=== PATIENT | female | born 1955 | race Two or more races ===

== ENCOUNTER 2020-01-22 12:47 | Outpatient (REF) | payer MEDICAID, SELFPAY ==
--- NOTE | 2020-01-22 12:55 | MM_ITS ---
EXAMINATION: MM DIAGNOSTIC DIGITAL BREAST TOMOSYNTHESIS, BILATERAL CLINICAL INFORMATION: 64-year-old due for yearly imaging. Recent history pain beneath left breast following trauma with bruising. Currently asymptomatic. No palpable mass, pain, or discharge. The lifetime risk of breast cancer based on the Tyrer-Cuzick Model is 5%. COMPARISON: Mammography: 01/25/2018, 09/02/2016, 08/06/2015 TECHNIQUE: Digital breast tomosynthesis is performed in both the craniocaudal and mediolateral oblique views along with computer-aided detection (CAD). Synthesized 2D images are generated from the tomosynthesis. FINDINGS: The breasts are heterogeneously dense, which may obscure small masses (ACR BI-RADS breast composition Category c). Breast tissue composition borders on average fibroglandular. The parenchymal pattern is similar to prior studies. There is no developing density or interval mass or architectural abnormality. There is no skin thickening or coarsening of the Nate's ligaments. Scattered bilateral vascular and scattered benign round and coarse calcifications are again seen. There is an intramammary node again noted anterior outer right breast. Results are discussed with the patient at time of visit, using an tube station attendant. IMPRESSION: No significant changes from prior studies. ASSESSMENT: BI-RADS 2: Benign RECOMMENDATION: Routine annual mammography screening. This patient's information was entered into a reminder system with a target due date for their next mammogram.
== END 2020-01-22 12:48 | disposition home or self-care (01) ==
LOC: HO.MAMMO 12:47
PROVIDERS: PCP Emergency Medicine; Visit Provider Emergency Medicine
DX: N64.4 Mastodynia (principal)
CPT/HCPCS: 77062; 77066

== ENCOUNTER → 2020-01-25 14:43 | Outpatient (BNVA) | payer MEDICAID, SELFPAY | PROVIDERS: PCP Family Medicine; Visit Provider Nurse Practitioner | DX: K58.1 Irritable bowel syndrome with constipation (principal); K59.04 Chronic idiopathic constipation; K21.9 Gastro-esophageal reflux disease without esophagitis; K75.81 Nonalcoholic steatohepatitis (NASH); K57.30 Diverticulosis of large intestine without perforation or abscess without bleeding; R30.0 Dysuria; Z79.899 Other long term (current) drug therapy | CPT/HCPCS: 99214 ==

== ENCOUNTER 2020-01-28 09:45 | Outpatient (REF) | payer MEDICAID, SELFPAY ==
[2020-01-28 10:14] LABS: MANUAL DIFF FLAG NO
[2020-01-28 10:25] LABS: Basophils Percent Auto 0.4 % (0-2); Eosinophils Absolute Auto 0.1 X10*3/uL (0.0-0.4); Hematocrit 37.5 % (37-47); Hemoglobin 11.7 g/dl (12.0-16.0); Imm Gran Abs Auto 0.03 X10*3/uL (0.00-0.03); Imm Gran Pct Auto 0.4 % (0.0-0.4); Lymphocytes Absolute Auto 2.1 X10*3/uL (1.2-4.9); Lymphocytes Percent Auto 30.1 % (20-40); Mean Corpuscular HGB Conc 31.2 g/dl (31.0-35.0); Mean Corpuscular Hemoglobin 27.7 pg (27.0-33.0); Mean Corpuscular Volume 88.7 fL (80-98); Mean Platelet Volume 11.1 fL (9.4-12.3); Monocytes Absolute Auto 0.4 X10*3/uL (0.1-1.2); Monocytes Percent Auto 6.3 % (2-11); Neutrophils Absolute Auto 4.3 X10*3/uL (2.0-8.3); Neutrophils Percent Auto 60.8 % (45-73); Platelet Count 191 X10*3/uL (160-400); Red Blood Count 4.23 X10*6/uL (4.20-5.50); Red Cell Distribution Width 13.9 % (11.0-16.0)
[2020-01-28 11:00] LABS: Glucose Urine UA NEG (NEG); Leukocyte Esterase Urine NEG (NEG); Nitrite Urine NEG (NEG); Urine Blood NEG (NEG); Urine Ketones NEG (NEG); Urine Protein NEG (NEG-TRACE)
[2020-01-28 11:02] LABS: Appearance Urine CLEAR; Color Urine YELLOW
[2020-01-28 11:41] LABS: RBC Urine 0 /HPF (0); Squamous Epithelial Cell Urine 1+ /LPF; WBC Urine 0 /HPF (0-4)
== END 2020-01-28 09:46 | disposition home or self-care (01) ==
LOC: HO.LAB 09:45
PROVIDERS: PCP Family Medicine; Visit Provider Nurse Practitioner
DX: R10.2 Pelvic and perineal pain (principal); R30.0 Dysuria
CPT/HCPCS: 36415; 81001; 85025

== ENCOUNTER 2020-02-08 15:36 | Outpatient (REF) | payer MEDICAID, SELFPAY ==
[2020-02-08 16:31] LABS: Glucose Urine UA NEG (NEG); Leukocyte Esterase Urine NEG (NEG); Nitrite Urine NEG (NEG); PH 5.5 (5.0-8.0); Specific Gravity - Urine 1.025 (1.005-1.025); Urine Blood NEG (NEG); Urine Ketones NEG (NEG); Urine Protein NEG (NEG-TRACE)
[2020-02-08 16:46] LABS: Appearance Urine CLEAR; Color Urine YELLOW
[2020-02-08 16:49] LABS: Bacteria Urine TRACE /LPF; Mucus Urine TRACE /LPF; RBC Urine 0-2 /HPF (0); Squamous Epithelial Cell Urine 2+ /LPF; WBC Urine 0-2 /HPF (0-4)
== END 2020-02-08 15:37 | disposition home or self-care (01) ==
LOC: HO.LAB 15:36
PROVIDERS: Absent Provider Family Medicine; PCP Family Medicine; Visit Provider Emergency Medicine
DX: R30.0 Dysuria (principal)
CPT/HCPCS: 81001; 87086

== ENCOUNTER 2020-02-19 08:19 | Outpatient (REF) | payer MEDICAID, SELFPAY ==
[2020-02-19 10:05] LABS: Alanine Aminotransferase 12 U/L (0-31); Albumin Level 4.2 g/dL (3.5-5.0); Alkaline Phosphatase 84 U/L (39-117); Anion Gap 14 (12-20); Aspartate Amino Transferase 14 U/L (5-31); Bilirubin Total 0.3 mg/dL (0.0-1.0); Blood Urea Nitrogen 20 mg/dL (9-16); Calcium 8.9 mg/dL (8.4-10.2); Carbon Dioxide 28 mmol/L (22-29); Chloride 104 mmol/L (96-108); Estimated Glomerular Filt Rate 53; Glucose Random 119 mg/dL (60-115); Potassium 4.8 mmol/l (3.3-5.1); Sodium 141 mmol/L (135-145); Total Protein 6.7 g/dL (6.5-8.0)
== END 2020-02-19 08:20 | disposition home or self-care (01) ==
LOC: HO.LAB 08:19
PROVIDERS: PCP Family Medicine; Visit Provider Nurse Practitioner
DX: R10.2 Pelvic and perineal pain (principal); R30.0 Dysuria
CPT/HCPCS: 80053

== ENCOUNTER 2020-02-20 06:58 | Outpatient (REF) | payer MEDICAID, SELFPAY ==
--- NOTE | 2020-02-20 06:59 | CT_ITS ---
EXAMINATION: CT ABDOMEN AND PELVIS WITH CONTRAST CLINICAL INFORMATION: Pelvic and perineal pain COMPARISON: Previous pelvic ultrasound October 2018, abdominal ultrasound July 2019, MRI of the abdomen July [address] of the abdomen and pelvis July 2018 TECHNIQUE: Multidetector volumetric images were obtained from the superior aspect of the liver through the pubic symphysis following administration 85 mL of Omnipaque 350 intravenous contrast. Sagittal and coronal reformatted images were obtained on the technologist's workstation. Oral contrast: Yes This CT examination was performed using dose optimization techniques as appropriate, variously including the following: *Automated exposure control *Adjustment of mA and/or kV according to patient size (this includes techniques or standardized protocols for targeted exams where dose is matched to indication/reason for exam; i.e. extremities or head) *Use of iterative reconstruction technique DLP: 586 mGy-cm FINDINGS: LUNG BASES: There are small bilateral 2 mm lower lobe nodules that are stable. LIVER, GALLBLADDER, AND BILIARY TREE: Or inflammatory the liver is low in attenuation suggestive of fatty infiltration. The liver is normal in size and shape. The gallbladder is unremarkable with no evidence of radiopaque gallstones, gallbladder wall thickening, or obvious pericholecystic inflammatory changes. PANCREAS: Unremarkable. SPLEEN: Unremarkable. ADRENAL GLANDS: Unremarkable. KIDNEYS AND URETERS: The kidneys are normal in size, shape, and attenuation. No hydronephrosis, hydroureter, or calculi seen. No perinephric stranding. BLADDER: Unremarkable. GASTROINTESTINAL TRACT: There is stool throughout the colon suggestive of constipation. There is diverticulosis of the colon. No evidence of diverticulitis is seen. The small and large bowel are otherwise unremarkable. The appendix is unremarkable. The stomach is unremarkable. ABDOMINAL WALL: There is evidence of previous ventral hernia repair with mesh. LYMPH NODES: Normal. VASCULAR: There is evidence of atherosclerotic disease. No aneurysm is seen. PELVIC VISCERA: Unremarkable. OSSEOUS STRUCTURES: Unremarkable. CT/CT abdomen pelvis w con IMPRESSION: Large amount stool in colon suggestive of constipation. Diverticulosis. No evidence of diverticulitis. Fatty liver.
[2020-02-20] MEDS: iohexoL 350 MG/ML 100 ML INFUS..BTL 85 ML IV (10:13)
[2020-02-20] MEDS: Barium Sulfate Oral (Vanilla) 450 ML ORAL.SUSP 900 ML PO (10:13)
== END 2020-02-20 06:59 | disposition home or self-care (01) ==
LOC: HO.CT 06:58
PROVIDERS: Visit Provider Nurse Practitioner
DX: R10.2 Pelvic and perineal pain (principal); R30.0 Dysuria
CPT/HCPCS: 74177; Q9967

== ENCOUNTER 2020-04-08 09:02 | Emergency (ER) | payer MEDICAID, SELFPAY ==
--- NOTE | 2020-04-08 09:15 | ED.ABDPAIN ---
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 Mode of arrival: ambulatory Limitations: no limitations History of Present Illness MD elicited complaint: abdominal pain Pertinent past history: constipation and other (IBS) Onset (ago): year(s) (1) Pain Consistency: constant Location: RLQ and suprapubic Severity: similar to previous episodes Quality: aching Radiation: none Migration to: no migration Exacerbating factors: nothing Relieving factors: nothing Associated symptoms: denies other symptoms Related Data Home Medications Medication Instructions Recorded Confirmed docusate sodium 100 mg capsule 100 mg PO DAILY 01/25/20 01/25/20 linaclotide 145 mcg capsule 145 mcg PO QAM 01/25/20 01/25/20 methylcellulose (with sugar) oral 1 tbsp PO BID 01/25/20 01/25/20 powder simethicone 180 mg capsule 180 mg PO BID PRN 01/25/20 01/25/20 Previous Rx's Medication Instructions Recorded omeprazole 40 mg capsule,delayed 40 mg PO DAILY 30 Days #30 cap 01/10/20 release amoxicillin-pot clavulanate 1 tab PO BID #14 tab 04/08/20 [Augmentin] hydrocodone-acetaminophen 1 tab PO Q6H PRN #12 tab 04/08/20 magnesium oxide 400 mg PO DAILY 7 Days #7 cap 04/08/20 Allergies Allergy/AdvReac Type Severity Reaction Status Date / Time No Known Allergies Allergy Unknown UNKNOWN Unverified 12/20/19 15:12 [NO KNOWN ALLERGIES] Review of Systems Review of Systems Constitutional : No Weight loss, No Fever, No Chills ENT/Mouth : No sore throat, No Rhinorrhea Eyes: No Swelling, No Redness Cardiovascular : No Chest Pain, No SOB, NoEdema Respiratory : No Cough, No Sputum, No Wheezing Gastrointestinal : no Nausea, no Vomiting, no Diarrhea, positive abdominal Pain, No Hematochezia, No Melena Genitourinary : No Dysuria, No Urinary Frequency, No Hematuria, No Urgency Musculoskeletal : No joint pain, No Myalgias, No Joint Swelling Skin : No Skin Lesions, No rash Neuro : No Weakness, No Numbness, No Dizziness, No Headache Psych : No Anxiety/Panic, No Depression Heme/Lymph: No Bruising, No Lymphadenopathy Endocrine : No Polyuria, No Polydipsia All other systems reviewed and are negative. Physical Exam Vital Signs: Vital Signs: Last Vital Signs Temp 98.5 F 04/08/20 09:31 Pulse 81 04/08/20 09:31 Resp 18 04/08/20 09:31 BP 179/90 H 04/08/20 09:31 Pulse Ox 95 04/08/20 09:31 Body Mass Index 42.9 Appearance: Alert. Oriented X3. No acute distress. Eyes: Pupils equal, round and reactive to light. ENT: Pharynx normal. Neck: Normal inspection. Neck supple. CVS: Normal heart rate and rhythm. Pulses normal. Respiratory: No respiratory distress. Breath sounds normal. Abdomen: Soft and mild suprapubic ttp no rebound or guarding, mild RLQ pain Skin: Skin warm and dry. Normal skin color. Normal skin turgor. Extremities: No lower extremity edema. No calf ttp Neuro: Oriented X 3. No motor deficit. No sensory deficit. Course Course Course Narrative: able to tolerate PO can be managed as outpatient MDM - Abdominal Pain MDM Narrative Medical decision making narrative: 64 yo female with chronic abdominal pain IBS, constipation x 1 year, upset no one can tell her what is wrong, here stating the pain is getting worse she does have a history of diverticulitis - at this time labs CT scan noncontrast ordered had colonoscopy 1 year ago per her reports doubt mass, dispo per results and findings Lab Data Result diagrams: 04/08/20 09:49 04/08/20 09:49 Labs: Lab Results 04/08/20 04/08/20 04/08/20 Range/Units 09:49 09:49 09:49 WBC 11.3 H (4.8-10.8) X10*3/uL RBC 4.36 (4.20-5.50) X10*6/uL Hgb 12.0 (12.0-16.0) g/dl Hct 38.6 (37-47) % MCV 88.5 (80-98) fL MCH 27.5 (27.0-33.0) pg MCHC 31.1 (31.0-35.0) g/dl RDW 13.1 (11.0-16.0) % Plt Count 188 (160-400) X10*3/uL MPV 10.8 (9.4-12.3) fL Immature Gran % (Auto) 0.4 (0.0-0.4) % Neut % (Auto) 74.3 H (45-73) % Lymph % (Auto) 19.1 L (20-40) % [place] % (Auto) 5.1 (2-11) % Eos % (Auto) 0.8 (0-4) % Baso % (Auto) 0.3 (0-2) % Lymph # (Auto) 2.2 (1.2-4.9) X10*3/uL [place] # (Auto) 0.6 (0.1-1.2) X10*3/uL Eos # (Auto) 0.1 (0.0-0.4) X10*3/uL Baso # (Auto) 0.0 (0.0-0.2) X10*3/uL Abs Immat Gran (auto) 0.04 H (0.00-0.03) X10*3/uL Absolute Neuts (auto) 8.4 H (2.0-8.3) X10*3/uL Absolute Nucleated RBC 0.000 (0.0-0.012) X10*3/uL Nucleated RBC % (auto) 0.0 (0.0-0.2) /100WBC Hold Blue Top SEE NOTE Sodium 138 (135-145) mmol/L Potassium 4.4 (3.3-5.1) mmol/l Chloride 105 (96-108) mmol/L Carbon Dioxide 23 (22-29) mmol/L Anion Gap 14 (12-20) BUN 26 H (9-16) mg/dL Creatinine 0.94 (0.5-1.4) mg/dL Estim Creat Clear Calc 44.6 Estimated GFR > 60 Random Glucose 154 H (60-115) mg/dL Calcium 9.3 (8.4-10.2) mg/dL Magnesium 1.1 L* (1.6-2.6) mg/dL Total Bilirubin 0.2 (0.0-1.0) mg/dL Direct Bilirubin < 0.2 (0.0-0.5) mg/dL AST 10 (5-31) U/L ALT 8 (0-31) U/L Alkaline Phosphatase 109 D (39-117) U/L Total Protein 7.0 (6.5-8.0) g/dL Albumin 4.3 (3.5-5.0) g/dL Lipase 8 (8-78) U/L Discharge Plan Discharge Clinical Impression: Diverticulitis, Hypomagnesemia Patient Disposition: Home, Self-Care Instructions: Diverticulitis (ED), Hypomagnesemia (ED) Additional Instructions: return to ED for any worsening symptoms or concerns Prescriptions: New hydrocodone-acetaminophen 5-325 mg tablet 1 tab PO Q6H PRN (Reason: pain) Qty: 12 RF: 0 amoxicillin-pot clavulanate [Augmentin] 875-125 mg tablet 1 tab PO BID Qty: 14 RF: 0 magnesium oxide 400 mg magnesium capsule 400 mg PO DAILY 7 Days Qty: 7 RF: 0 No Action omeprazole 40 mg capsule,delayed release(DR/EC) 40 mg PO DAILY 30 Days Qty: 30 RF: 3 Linzess 145 mcg capsule 145 mcg PO QAM RF: 0 docusate sodium [Colace] 100 mg capsule 100 mg PO DAILY RF: 0 Citrucel (sucrose) Powder 1 tbsp PO BID RF: 0 simethicone [Gas Relief (simethicone)] 180 mg capsule 180 mg PO BID PRNRF: 0 Referrals: Kathryn Jarquin MD [Primary Care Provider] - 1 week Print Language: Cymro [facility] Past Medical History Attestation statement: The following information was validated with the patient. Source: old records reviewed Medical History Chronic idiopathic constipation Dysuria GERD (gastroesophageal reflux disease) Irritable bowel syndrome with constipation Surgical History History of esophagogastroduodenoscopy (EGD) Hx of colonoscopy Family History Family History (Updated 01/25/20 @ 14:53 by BRISEIDA Shaw) Father Family hx of prostate cancer Cancer Brother Cancer Mother HTN (hypertension) Maternal Aunt Skin cancer, Onset Age: 59 Social History Social History Alcohol intake: current Alcohol intake frequency: does not drink Smoking Status: Never smoker Advance Directives: No Advance Directives Information Provided: Yes
[2020-04-08 09:31] VITALS: BP 179/90; PULSE 81; RESP 18; TEMP 36.9; O2SAT 95; BMI 42.9
--- NOTE | 2020-04-08 09:31 | CT_ITS ---
EXAMINATION: CT ABDOMEN AND PELVIS WITHOUT CONTRAST CLINICAL INFORMATION: Worsening lower abdominal pain COMPARISON: Previous abdominal ultrasounds most recent December [address] of the abdomen and pelvis recent February 2020 TECHNIQUE: Multidetector volumetric imaging was performed from the superior aspect of the liver through the pubic symphysis. Sagittal and coronal reformatted images were obtained on the technologist's workstation. This CT examination was performed using dose optimization techniques as appropriate, variously including the following: *Automated exposure control *Adjustment of mA and/or kV according to patient size (this includes techniques or standardized protocols for targeted exams where dose is matched to indication/reason for exam; i.e. extremities or head) *Use of iterative reconstruction technique DLP: 792 mGy-cm FINDINGS: LUNG BASES: There are small calcified pulmonary nodules that are stable suggestive of calcified granulomas. The bases are otherwise clear. LIVER, GALLBLADDER, AND BILIARY TREE: The liver is normal in size, shape, and attenuation. No focal hepatic lesion or biliary ductal dilatation is present. The gallbladder is unremarkable with no evidence of radiopaque gallstones, gallbladder wall thickening, or obvious pericholecystic inflammatory changes. PANCREAS: Unremarkable. SPLEEN: Unremarkable. ADRENAL GLANDS: Unremarkable. KIDNEYS AND URETERS: The kidneys are normal in size, shape, and attenuation. No hydronephrosis, hydroureter, or calculi seen. No perinephric stranding. BLADDER: Unremarkable. GASTROINTESTINAL TRACT: There is diverticulosis of the colon. There is wall thickening of the sigmoid colon and stranding of the surrounding fat suggestive of sigmoid diverticulitis. No evidence of obstruction, perforation or abscess is seen. Small and large bowel is otherwise unremarkable. The appendix is unremarkable. ABDOMINAL WALL: There is postsurgical change following abdominal wall hernia repair with mesh. No recurrent hernia or fluid collection is seen. LYMPH NODES: Normal. VASCULAR: Unremarkable. PELVIC VISCERA: The uterus appears to have been removed. No pelvic mass is seen.. OSSEOUS STRUCTURES: Unremarkable. CT/CT abdomen pelvis wo con IMPRESSION: Sigmoid diverticulitis.
[2020-04-08 09:59] LABS: MANUAL DIFF FLAG NO
[2020-04-08 10:00] LABS: Basophils Percent Auto 0.3 % (0-2); Eosinophils Absolute Auto 0.1 X10*3/uL (0.0-0.4); Eosinophils Percent Auto 0.8 % (0-4); Hematocrit 38.6 % (37-47); Imm Gran Abs Auto 0.04 X10*3/uL (0.00-0.03); Imm Gran Pct Auto 0.4 % (0.0-0.4); Lymphocytes Absolute Auto 2.2 X10*3/uL (1.2-4.9); Lymphocytes Percent Auto 19.1 % (20-40); Mean Corpuscular HGB Conc 31.1 g/dl (31.0-35.0); Mean Corpuscular Hemoglobin 27.5 pg (27.0-33.0); Mean Corpuscular Volume 88.5 fL (80-98); Mean Platelet Volume 10.8 fL (9.4-12.3); Monocytes Absolute Auto 0.6 X10*3/uL (0.1-1.2); Monocytes Percent Auto 5.1 % (2-11); Neutrophils Absolute Auto 8.4 X10*3/uL (2.0-8.3); Neutrophils Percent Auto 74.3 % (45-73); Platelet Count 188 X10*3/uL (160-400); Red Blood Count 4.36 X10*6/uL (4.20-5.50); Red Cell Distribution Width 13.1 % (11.0-16.0); White Blood Count 11.3 X10*3/uL (4.8-10.8)
[2020-04-08 10:25] LABS: Alanine Aminotransferase 8 U/L (0-31); Albumin Level 4.3 g/dL (3.5-5.0); Alkaline Phosphatase 109 U/L (39-117); Anion Gap 14 (12-20); Aspartate Amino Transferase 10 U/L (5-31); Bilirubin Direct < 0.2 mg/dL (0.0-0.5); Bilirubin Total 0.2 mg/dL (0.0-1.0); Blood Urea Nitrogen 26 mg/dL (9-16); Calcium 9.3 mg/dL (8.4-10.2); Carbon Dioxide 23 mmol/L (22-29); Chloride 105 mmol/L (96-108); Creatinine Clr Calc Pharmacy 44.6; Estimated Glomerular Filt Rate > 60; Glucose Random 154 mg/dL (60-115); Lipase 8 U/L (8-78); Magnesium 1.1 mg/dL (1.6-2.6); Potassium 4.4 mmol/l (3.3-5.1); Sodium 138 mmol/L (135-145)
[2020-04-08] MEDS: Magnesium Sulfate/H2O 2 GM/50 ML PIGGYBACK IV (11:13)
[2020-04-08] MEDS: Amoxicillin/Potassium Clav 875 MG TABLET PO (11:56)
== END 2020-04-08 12:05 | disposition home or self-care (01) ==
PROVIDERS: Emergency Provider Emergency Medicine; PCP Family Medicine
DX: K57.32 Diverticulitis of large intestine without perforation or abscess without bleeding (principal); E83.42 Hypomagnesemia; Z79.899 Other long term (current) drug therapy
CPT/HCPCS: 36415; 74176; 80048; 80076; 83690; 83735; 85025; 96365; 99283; 99284; J3475

== ENCOUNTER → 2020-04-29 10:43 | Outpatient (BNVA) | payer MEDICAID, SELFPAY | PROVIDERS: PCP Family Medicine; Visit Provider Nurse Practitioner ==

== ENCOUNTER 2020-04-30 11:29 | Outpatient (REF) | payer MEDICAID, SELFPAY ==
[2020-04-30 12:28] LABS: MANUAL DIFF FLAG NO
[2020-04-30 12:32] LABS: Basophils Percent Auto 0.4 % (0-2); Eosinophils Absolute Auto 0.1 X10*3/uL (0.0-0.4); Eosinophils Percent Auto 1.5 % (0-4); Hematocrit 39.1 % (37-47); Hemoglobin 12.2 g/dl (12.0-16.0); Imm Gran Abs Auto 0.03 X10*3/uL (0.00-0.03); Imm Gran Pct Auto 0.3 % (0.0-0.4); Lymphocytes Absolute Auto 3.1 X10*3/uL (1.2-4.9); Lymphocytes Percent Auto 33.5 % (20-40); Mean Corpuscular HGB Conc 31.2 g/dl (31.0-35.0); Mean Corpuscular Hemoglobin 27.2 pg (27.0-33.0); Mean Corpuscular Volume 87.3 fL (80-98); Mean Platelet Volume 11.7 fL (9.4-12.3); Monocytes Absolute Auto 0.5 X10*3/uL (0.1-1.2); Monocytes Percent Auto 5.9 % (2-11); Neutrophils Absolute Auto 5.4 X10*3/uL (2.0-8.3); Neutrophils Percent Auto 58.4 % (45-73); Platelet Count 253 X10*3/uL (160-400); Red Blood Count 4.48 X10*6/uL (4.20-5.50); Red Cell Distribution Width 13.3 % (11.0-16.0); White Blood Count 9.2 X10*3/uL (4.8-10.8)
[2020-04-30 13:09] LABS: Magnesium 1.6 mg/dL (1.6-2.6)
== END 2020-04-30 11:30 | disposition home or self-care (01) ==
LOC: HO.LAB 11:29
PROVIDERS: PCP Family Medicine; Visit Provider Nurse Practitioner
DX: K57.92 Diverticulitis of intestine, part unspecified, without perforation or abscess without bleeding (principal); E83.42 Hypomagnesemia
CPT/HCPCS: 36415; 83735; 85025

== ENCOUNTER → 2020-05-13 10:29 | Outpatient (BNVA) | payer MEDICAID, SELFPAY | PROVIDERS: PCP Family Medicine; Visit Provider Nurse Practitioner ==

== ENCOUNTER 2020-05-28 09:25 | Emergency (ER) | payer MEDICAID, SELFPAY ==
--- NOTE | ~2020-05-28 | XR_ITS ---
EXAMINATION: XR SHOULDER, LEFT CLINICAL INFORMATION: Shoulder pain, tear COMPARISON: None TECHNIQUE: Left shoulder is imaged in 3 views. FINDINGS: There is no fracture, dislocation, or destructive process. The acromioclavicular alignment is normal. The glenohumeral joint shows no narrowing or erosive change. There are no visible rotator cuff calcifications. Bony mineralization appears normal. Left lung apex is clear. XR/XR shoulder LT min 2V IMPRESSION: Normal left shoulder.
[2020-05-28 09:31] VITALS: BP 118/82; PULSE 91; RESP 14; TEMP 36.1; O2SAT 96; BMI 31.1
--- NOTE | 2020-05-28 10:40 | PC.NURSE ---
pt reports slipped on stairs, reached out grabbed railing felt pull rt shoulder x 1 week, kept balance
[2020-05-28] MEDS: Cyclobenzaprine HCl 5 MG TABLET PO (11:40)
[2020-05-28] MEDS: Ketorolac Tromethamine 15 MG/ML VIAL IM (11:40)
--- NOTE | 2020-05-28 12:09 | ED_ITS ---
HPI - Extremity Problem General Chief complaint: Extremity Injury, Upper Stated complaint: arm pain Time Seen by Provider: 05/28/20 10:37 Source: patient Mode of arrival: ambulatory History of Present Illness HPI Narrative: 65-year-old female with a past medical history of constipation, diabetes, GERD, hypertension, IBS, urge incontinence, presenting to the ED complaining of left shoulder/upper arm pain S/P reaching for something on Satu rday and arm being hyper extended. Denies direct injury/trauma were crushed, numbness, tingling, chest pain, shortness of breath. Reports pain with ROM Related Data Home Medications Medication Instructions Recorded Confirmed docusate sodium 100 mg capsule 100 mg PO DAILY 01/25/20 04/15/20 linaclotide 145 mcg capsule 145 mcg PO QAM 01/25/20 04/15/20 methylcellulose (with sugar) oral 1 tbsp PO BID 01/25/20 04/15/20 powder simethicone 180 mg capsule 180 mg PO BID PRN 01/25/20 04/15/20 Previous Rx's Medication Instructions Recorded hydrocodone-acetaminophen 1 tab PO Q6H PRN #12 tab 04/08/20 magnesium oxide 400 mg PO DAILY 7 Days #7 cap 04/08/20 oxybutynin chloride 10 mg 10 mg PO DAILY #30 tab 04/15/20 tablet,extended release 24 hr dicyclomine 20 mg tablet 20 mg PO QID PRN 30 Days #120 tab 05/13/20 levofloxacin 750 mg tablet 750 mg PO Q24H 10 Days #10 tab 05/13/20 metronidazole 500 mg tablet 500 mg PO TID 10 Days #30 tab 05/13/20 omeprazole 40 mg capsule,delayed 40 mg PO DAILY 30 Days #30 cap 05/13/20 release Allergies Allergy/AdvReac Type Severity Reaction Status Date / Time No Known Allergies Allergy Unknown UNKNOWN Unverified 04/29/20 10:43 [NO KNOWN ALLERGIES] Review of Systems Review of Systems: Constitutional: No Fever, No Chills Cardiovascular: No Chest Pain, No SOB Respiratory: No Cough, No Sputum, No Wheezing Genitourinary: No Urinary Incontinence Musculoskeletal: + joint pain, No Myalgias, No Joint Swelling Skin: No Skin Lesions, No rash Neuro: No Weakness, No Numbness, No Paresthesias Yes all other systems are reviewed and are negative PMFSH Past Medical History Attestation statement: The following information was validated with the patient. Medical History (Updated 05/28/20 @ 12:16 by SAIRA Richards) Chronic idiopathic constipation Diabetes 1.5, managed as type 2 Dysuria GERD (gastroesophageal reflux disease) HTN (hypertension) Irritable bowel syndrome with constipation KIRSTIE (stress urinary incontinence, female) Urge incontinence Surgical History History of esophagogastroduodenoscopy (EGD) Hx of colonoscopy Family History Family History Father Family hx of prostate cancer Cancer Brother Cancer Mother HTN (hypertension) Maternal Aunt Skin cancer, Onset Age: 59 Social History Social History (Updated 05/13/20 @ 10:29 by Antonia Miller) Household Members: None Alcohol intake: never Smoking Status: Never smoker Smoked in Last 30 Days: No Use of substances other than those prescribed or required for medical reasons: No Advance Directives: No Advance Directives Information Provided: No Current occupational status: disabled Physical Exam Vital Signs: Vital Signs: Last Vital Signs Temp 97 F 05/28/20 09:31 Pulse 91 05/28/20 09:31 Resp 14 05/28/20 09:31 BP 118/82 05/28/20 09:31 Pulse Ox 96 05/28/20 09:31 Body Mass Index 31.1 Const: General: cooperative and healthy appearing Orientation/consciousness: patient oriented x3 Limitations: no limitations HENMT: Head: Yes normal to inspection Ears: hearing grossly normal bilaterally General nose exam: Normal external nose present Face and sinus: Yes normal facial exam Eyes: General: appearance normal, both eyes and all related structures EOM: EOMs intact bilaterally Neck: Neck: Yes normal visual inspection Resp: Effort & Inspection: normal respiratory effort Cardio: Rate: regular rate Peripheral pulses: radial pulses present Skin: Rashes: no rashes Wounds: no wounds Neuro: General: patient oriented x3 Gait exam (Neuro): Normal gait present Extrem: Other: Left shoulder normal to inspection, no deformity, tender to palpation to deltoid muscle. Abduction and internal rotation limited secondary to pain. Neurovascularly intact General: Yes normal to inspection Course Course Course Narrative: XR shoulder LT min 2V IMPRESSION: Normal left shoulder. MDM - Extremity (Nontraumatic) MDM Narrative Medical decision making narrative: On exam VSS, NAD/well-appearing, physical exam as above. Concern for MSK pain/strain Plan: X-rays Discharge Plan Discharge Clinical Impression: Acute shoulder pain Qualifiers: Laterality: left Qualified Code(s): M25.512 - Pain in left shoulder Patient Disposition: Home, Self-Care Instructions: Musculoskeletal Pain (ED) Additional Instructions: Your x-ray were negative. Naproxen as an anti-inflammatory/pain medication, take with food. Flexeril is a muscle relaxer, take at night as it makes you drowsy, do not drive, drink alcohol, or operate machinery while taking it. Lidoderm patches or numbing patches, apply to painful area. In addition take Tylenol. Follow up with her primary care doctor. Tu radiograf?a fue negativa. El naproxeno debbie medicamento antiinflamatorio / analg?sico, t?quintanilla con las comidas. Flexeril es un relajante muscular, t?quintanilla por la noche ya que le produce louis?o, no conduzca, no cleve alcohol ni maneje maquinaria mientras lo julieth. Los parches de Lidoderm o los parches adormecedores se aplican en el ?patel dolorida. Adem?s, tome Tylenol. Alexander un seguimiento con montilla m?dico de atenci?n primaria. Prescriptions: No Action hydrocodone-acetaminophen 5-325 mg tablet 1 tab PO Q6H PRN (Reason: pain) Qty: 12 RF: 0 magnesium oxide 400 mg magnesium capsule 400 mg PO DAILY 7 Days Qty: 7 RF: 0 oxybutynin chloride 10 mg tablet extended release 24hr 10 mg PO DAILY Qty: 30 RF: 6 Linzess 145 mcg capsule 145 mcg PO QAM RF: 0 docusate sodium [Colace] 100 mg capsule 100 mg PO DAILY RF: 0 Citrucel (sucrose) Powder 1 tbsp PO BID RF: 0 simethicone [Gas Relief (simethicone)] 180 mg capsule 180 mg PO BID PRNRF: 0 metronidazole [Flagyl] 500 mg tablet 500 mg PO TID 10 Days Qty: 30 RF: 0 levofloxacin 750 mg tablet 750 mg PO Q24H 10 Days Qty: 10 RF: 0 omeprazole 40 mg capsule,delayed release(DR/EC) 40 mg PO DAILY 30 Days Qty: 30 RF: 6 dicyclomine 20 mg tablet 20 mg PO QID PRN (Reason: bowel pain) 30 Days Qty: 120 RF: 3 Referrals: Kathryn Jarquin MD [Primary Care Provider] - 3 days Print Language: Turkish
== END 2020-05-28 12:31 | disposition home or self-care (01) ==
PROVIDERS: Emergency Provider Emergency Medicine; PCP Family Medicine
DX: M25.512 Pain in left shoulder (principal); I10 Essential (primary) hypertension; E13.9 Other specified diabetes mellitus without complications; Z79.899 Other long term (current) drug therapy
CPT/HCPCS: 73030; 96372; 99283; J1885

== ENCOUNTER → 2020-06-10 13:28 | Outpatient (BNVA) | payer MEDICAID, SELFPAY | PROVIDERS: PCP Family Medicine; Visit Provider Nurse Practitioner | DX: K57.92 Diverticulitis of intestine, part unspecified, without perforation or abscess without bleeding (principal); K21.9 Gastro-esophageal reflux disease without esophagitis; R10.9 Unspecified abdominal pain ==

== ENCOUNTER → 2020-06-20 13:15 | Outpatient (BNVA) | payer MEDICAID, SELFPAY | PROVIDERS: PCP Family Medicine; Visit Provider Physician Assistant | DX: M75.22 Bicipital tendinitis, left shoulder (principal) | CPT/HCPCS: 99202 ==

== ENCOUNTER → 2020-06-25 13:41 | Outpatient (BNVA) | payer MEDICAID, SELFPAY | PROVIDERS: PCP Family Medicine; Referring Provider Family Medicine; Visit Provider Nurse Practitioner ==

== ENCOUNTER 2020-06-25 15:25 | Emergency (ER) | payer MEDICAID, SELFPAY ==
[2020-06-25 15:57] VITALS: BP 194/93; PULSE 74; RESP 16; TEMP 37.1; O2SAT 98; BMI 45.9
--- NOTE | 2020-06-25 17:14 | ED_ITS ---
HPI - Female Genitourinary General Chief complaint: Urogenital-Female Stated complaint: ?UTI Time Seen by Provider: 06/25/20 16:39 Source: patient Mode of arrival: ambulatory History of Present Illness HPI Narrative: 65-year-old female with a past medical history constipation, diabetes, GERD, hypertension, IBS, urge incontinence, presenting to the ED complaining of dysuria and suprapubic pressure x1 week. Denies fever, chills, nausea/vomiting, flank pain, frequency, hematuria, vaginal bleeding/discharge MD elicited complaint: dysuria and UTI Related Data Home Medications Medication Instructions Recorded Confirmed docusate sodium 100 mg capsule 100 mg PO DAILY 01/25/20 04/15/20 methylcellulose (with sugar) oral 1 tbsp PO BID 01/25/20 04/15/20 powder simethicone 180 mg capsule 180 mg PO BID PRN 01/25/20 04/15/20 aspirin 81 mg tablet,delayed 81 mg PO DAILY 06/10/20 release clonazepam 2 mg tablet 2 mg PO DAILY 06/10/20 lisinopril 40 mg tablet 40 mg PO DAILY 06/10/20 simvastatin 20 mg tablet 20 mg PO DAILY 06/10/20 Previous Rx's Medication Instructions Recorded hydrocodone-acetaminophen 1 tab PO Q6H PRN #12 tab 04/08/20 magnesium oxide 400 mg PO DAILY 7 Days #7 cap 04/08/20 oxybutynin chloride 10 mg 10 mg PO DAILY #30 tab 04/15/20 tablet,extended release 24 hr dicyclomine 20 mg tablet 20 mg PO QID PRN 30 Days #120 tab 05/13/20 levofloxacin 750 mg tablet 750 mg PO Q24H 10 Days #10 tab 05/13/20 metronidazole 500 mg tablet 500 mg PO TID 10 Days #30 tab 05/13/20 acetaminophen [Tylenol Extra 500 mg PO Q6H PRN #20 tab 05/28/20 Strength] cyclobenzaprine 5 mg PO Q8H PRN 5 Days #14 tab 05/28/20 lidocaine [Lidoderm] 1 patch TOPICAL DAILY PRN #30 ea 05/28/20 MDD remove after 12 hours naproxen 500 mg PO BID PRN 10 Days #20 tab 05/28/20 linaclotide 145 mcg capsule 145 mcg PO DAILY #30 cap 05/30/20 meloxicam 7.5 mg tablet 7.5 mg PO DAILY 30 Days #30 tab 06/20/20 omeprazole 40 mg capsule,delayed 40 mg PO DAILY #30 cap 06/25/20 release phenazopyridine [Pyridium] 200 mg PO TID PRN #6 tab 06/25/20 Allergies Allergy/AdvReac Type Severity Reaction Status Date / Time No Known Allergies Allergy Unknown UNKNOWN Verified 06/25/20 13:42 [NO KNOWN ALLERGIES] Review of Systems Review of Systems: Constitutional: No Fever, No Chills Gastrointestinal: No Nausea, No Vomiting, + suprapubic discomfort Genitourinary: +Dysuria, No Urinary Frequency, No Hematuria, No Urgency, No Flank Pain Skin: No Skin Lesions, No rash Neuro: No Weakness, No Numbness, No Paresthesias Yes all other systems are reviewed and are negative [facility] Past Medical History Attestation statement: The following information was validated with the patient. Medical History Chronic idiopathic constipation Diabetes 1.5, managed as type 2 Dysuria GERD (gastroesophageal reflux disease) HTN (hypertension) Irritable bowel syndrome with constipation KIRSTIE (stress urinary incontinence, female) Urge incontinence Surgical History History of esophagogastroduodenoscopy (EGD) Hx of colonoscopy Family History Family History Father Family hx of prostate cancer Cancer Brother Cancer Mother HTN (hypertension) Maternal Aunt Skin cancer, Onset Age: 59 Social History Social History (Updated 06/25/20 @ 13:46 by BRISEIDA Shaw) Household Members: None Alcohol intake: never Smoking Status: Never smoker Advance Directives: No Advance Directives Information Provided: Yes Current occupational status: disabled Physical Exam Vital Signs: Vital Signs: Last Vital Signs Temp 98.7 F 06/25/20 15:57 Pulse 74 06/25/20 15:57 Resp 16 06/25/20 15:57 BP 194/93 H 06/25/20 15:57 Pulse Ox 98 06/25/20 15:57 Body Mass Index 45.9 Const: General: cooperative, healthy appearing, comfortable and no acute distress Orientation/consciousness: patient oriented x3 Limitations: no limitations HENMT: Head: Yes normal to inspection Ears: hearing grossly normal bilaterally General nose exam: Normal external nose present Face and sinus: Yes normal facial exam Eyes: General: appearance normal, both eyes and all related structures EOM: EOMs intact bilaterally Neck: Neck: Yes normal visual inspection and Yes no meningeal signs GI: Inspection: Yes normal to inspection Palpation (GI): Soft to palpation, nontender, no guarding and not rigid : General: Yes no CVA tenderness Back/Spine/Pelvis: Back: no CVA tenderness Skin: Rashes: no rashes Wounds: no wounds Neuro: General: patient oriented x3 and no meningeal signs Gait exam (Neuro): Normal gait present Extrem: General: Yes normal to inspection Course Course Course Narrative: -UA negative >> likely cystitis. Will DC with Pyridium MDM - Female Genitourinary MDM Narrative Medical decision making narrative: 65-year-old female with a past medical history constipation, diabetes, GERD, hypertension, IBS, urge incontinence, p resenting to the ED complaining of dysuria and suprapubic pressure x1 week. On exam VSS, NAD/well-appearing, abdomen soft/nontender, no CVAT. Concern for UTI. Plan: UA Medical Records Attestation: I reviewed the patient's medical records. Lab Data Labs: Lab Results 06/25/20 Range/Units 17:09 Urine Color DARK YELLOW Urine Appearance CLEAR Urine pH 5.5 (5.0-8.0) Ur Specific [place] 1.025 (1.005-1.025) Urine Protein TRACE (NEG-TRACE) MG/DL Urine Glucose (UA) NEG (NEG) MG/DL Urine Ketones NEG (NEG) MG/DL Urine Blood NEG (NEG) Urine Nitrite NEG (NEG) Ur Leukocyte Esterase NEG (NEG) Discharge Plan Discharge Clinical Impression: Dysuria Patient Disposition: Home, Self-Care Instructions: Dysuria (ED) Additional Instructions: Your urine is not infected. Peridium will help with the discomfort when he pee. You need to follow-up with urology. If you develop constant or worsening abdominal pain, nausea/vomiting, or fever return to the ED Tu orina no est? infectada. Peridium ayudar? con la incomodidad cuando orine. Debe hacer un seguimiento con urolog?a. Si presenta dolor abdominal fortunato o que empeora, n?useas / v?mitos o fiebre, vuelva al servicio de urgencias. Prescriptions: New phenazopyridine [Pyridium] 200 mg tablet 200 mg PO TID PRN (Reason: pain) Qty: 6 RF: 0 No Action linaclotide [Linzess] 145 mcg capsule 145 mcg PO DAILY Qty: 30 RF: 2 hydrocodone-acetaminophen 5-325 mg tablet 1 tab PO Q6H PRN (Reason: pain) Qty: 12 RF: 0 magnesium oxide 400 mg magnesium capsule 400 mg PO DAILY 7 Days Qty: 7 RF: 0 acetaminophen [Tylenol Extra Strength] 500 mg tablet 500 mg PO Q6H PRN (Reason: pain or fever) Qty: 20 RF: 0 lidocaine [Lidoderm] 5 % adhesive patch,medicated 1 patch topical DAILY MDD remove after 12 hours PRN (Reason: pain) Qty: 30 RF: 0 naproxen 500 mg tablet 500 mg PO BID PRN (Reason: pain) 10 Days Qty: 20 RF: 0 cyclobenzaprine 5 mg tablet 5 mg PO Q8H PRN (Reason: pain (scale score 7-10)) 5 Days Qty: 14 RF: 0 oxybutynin chloride 10 mg tablet extended release 24hr 10 mg PO DAILY Qty: 30 RF: 6 omeprazole 40 mg capsule,delayed release(DR/EC) 40 mg PO DAILY Qty: 30 RF: 6 docusate sodium [Colace] 100 mg capsule 100 mg PO DAILY RF: 0 Citrucel (sucrose) Powder 1 tbsp PO BID RF: 0 simethicone [Gas Relief (simethicone)] 180 mg capsule 180 mg PO BID PRNRF: 0 metronidazole [Flagyl] 500 mg tablet 500 mg PO TID 10 Days Qty: 30 RF: 0 levofloxacin 750 mg tablet 750 mg PO Q24H 10 Days Qty: 10 RF: 0 dicyclomine 20 mg tablet 20 mg PO QID PRN (Reason: bowel pain) 30 Days Qty: 120 RF: 3 meloxicam 7.5 mg tablet 7.5 mg PO DAILY 30 Days Qty: 30 RF: 0 Referrals: Shlomo Ware MD [Physician] - 1 week Kathryn Jarquin MD [Primary Care Provider] - 5 days Print Language: Georgian
[2020-06-25 17:19] LABS: Glucose Urine UA NEG (NEG); Leukocyte Esterase Urine NEG (NEG); Nitrite Urine NEG (NEG); PH 5.5 (5.0-8.0); Specific Gravity - Urine 1.025 (1.005-1.025); Urine Blood NEG (NEG); Urine Ketones NEG (NEG); Urine Protein TRACE MG/DL (NEG-TRACE)
[2020-06-25 17:21] LABS: Appearance Urine CLEAR; Color Urine DARK YELLOW
== END 2020-06-25 18:29 | disposition home or self-care (01) ==
PROVIDERS: Emergency Provider Emergency Medicine; PCP Family Medicine
DX: R30.0 Dysuria (principal); Z79.899 Other long term (current) drug therapy; Z79.82 Long term (current) use of aspirin
CPT/HCPCS: 81003; 99283; 99284

== ENCOUNTER 2020-07-09 20:56 | Emergency (ER) | payer MEDICAID, SELFPAY ==
--- NOTE | ~2020-07-09 | XR_ITS ---
EXAMINATION: LEFT KNEE, LEFT ANKLE CLINICAL INFORMATION: Pain and swelling left ankle, left knee COMPARISON: None TECHNIQUE: 4 views left knee, 3 views left ankle FINDINGS: Knee: Mild degenerative changes are present with narrowing at the medial compartment and some mild lateral compartment changes. The lateral compartment has some minimal lateral femoral condyle osteophytes at the joint space is well maintained. The patellofemoral joint appears unremarkable. No joint effusion is seen. No fracture is seen. Ankle: Mild bilateral soft tissue swelling is seen but no fractures are identified. The ankle mortise appears stable. Vascular calcifications are present. XR/XR ankle LT 2V IMPRESSION: Bicompartmental knee joint degenerative changes, most marked medially. Other than mild soft tissue swelling no abnormality is seen in the ankle.
--- NOTE | ~2020-07-09 | XR_ITS ---
EXAMINATION: LEFT KNEE, LEFT ANKLE CLINICAL INFORMATION: Pain and swelling left ankle, left knee COMPARISON: None TECHNIQUE: 4 views left knee, 3 views left ankle FINDINGS: Knee: Mild degenerative changes are present with narrowing at the medial compartment and some mild lateral compartment changes. The lateral compartment has some minimal lateral femoral condyle osteophytes at the joint space is well maintained. The patellofemoral joint appears unremarkable. No joint effusion is seen. No fracture is seen. Ankle: Mild bilateral soft tissue swelling is seen but no fractures are identified. The ankle mortise appears stable. Vascular calcifications are present. XR/XR knee LT 4V IMPRESSION: Bicompartmental knee joint degenerative changes, most marked medially. Other than mild soft tissue swelling no abnormality is seen in the ankle.
[2020-07-09 21:31] VITALS: BP 189/89; PULSE 60; RESP 16; TEMP 36.3; O2SAT 97; BMI 45.9
--- NOTE | 2020-07-09 21:51 | ED_ITS ---
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 65-year-old female came in for evaluation of left knee/left ankle pain, patient declined any recent fall or trauma to the knee or ankle however patient fell a year ago causing injury to the knee. Patient also is here today for evaluation dysuria and urinary frequency. No fever, no chills. Related Data Home Medications Medication Instructions Recorded Confirmed docusate sodium 100 mg capsule 100 mg PO DAILY 01/25/20 04/15/20 methylcellulose (with sugar) oral 1 tbsp PO BID 01/25/20 04/15/20 powder simethicone 180 mg capsule 180 mg PO BID PRN 01/25/20 04/15/20 aspirin 81 mg tablet,delayed 81 mg PO DAILY 06/10/20 release clonazepam 2 mg tablet 2 mg PO DAILY 06/10/20 lisinopril 40 mg tablet 40 mg PO DAILY 06/10/20 simvastatin 20 mg tablet 20 mg PO DAILY 06/10/20 Previous Rx's Medication Instructions Recorded hydrocodone-acetaminophen 1 tab PO Q6H PRN #12 tab 04/08/20 magnesium oxide 400 mg PO DAILY 7 Days #7 cap 04/08/20 oxybutynin chloride 10 mg 10 mg PO DAILY #30 tab 04/15/20 tablet,extended release 24 hr dicyclomine 20 mg tablet 20 mg PO QID PRN 30 Days #120 tab 05/13/20 levofloxacin 750 mg tablet 750 mg PO Q24H 10 Days #10 tab 05/13/20 metronidazole 500 mg tablet 500 mg PO TID 10 Days #30 tab 05/13/20 acetaminophen [Tylenol Extra 500 mg PO Q6H PRN #20 tab 05/28/20 Strength] cyclobenzaprine 5 mg PO Q8H PRN 5 Days #14 tab 05/28/20 lidocaine [Lidoderm] 1 patch TOPICAL DAILY PRN #30 ea 05/28/20 MDD remove after 12 hours naproxen 500 mg PO BID PRN 10 Days #20 tab 05/28/20 linaclotide 145 mcg capsule 145 mcg PO DAILY #30 cap 05/30/20 meloxicam 7.5 mg tablet 7.5 mg PO DAILY 30 Days #30 tab 06/20/20 omeprazole 40 mg capsule,delayed 40 mg PO DAILY #30 cap 06/25/20 release phenazopyridine [Pyridium] 200 mg PO TID PRN #6 tab 06/25/20 Allergies Allergy/AdvReac Type Severity Reaction Status Date / Time No Known Allergies Allergy Unknown UNKNOWN Verified 06/25/20 13:42 [NO KNOWN ALLERGIES] [facility], [facility] Past Medical History Medical History Chronic idiopathic constipation Diabetes 1.5, managed as type 2 Dysuria GERD (gastroesophageal reflux disease) HTN (hypertension) Irritable bowel syndrome with constipation KIRSTIE (stress urinary incontinence, female) Urge incontinence Surgical History History of esophagogastroduodenoscopy (EGD) Hx of colonoscopy Family History Family History Father Family hx of prostate cancer Cancer Brother Cancer Mother HTN (hypertension) Maternal Aunt Skin cancer, Onset Age: 59 Social History Social History (Updated 06/25/20 @ 13:46 by BRISEIDA Shaw) Household Members: None Alcohol intake: never Smoking Status: Never smoker Smoked in Last 30 Days: No Advance Directives: No Advance Directives Information Provided: Yes Current occupational status: disabled Physical Exam Vital Signs: Vital Signs: Last Vital Signs Temp 97.4 F 07/09/20 21:31 Pulse 60 07/09/20 21:31 Resp 16 07/09/20 21:31 BP 189/89 H 07/09/20 21:31 Pulse Ox 97 07/09/20 21:31 Body Mass Index 45.9 Vital signs have been reviewed as appeared to be correct. Blood pressure is elevated. Heart rate normal. Respiration rate normal. Temperature normal. Oxygen saturation normal. Appearance: Alert. Oriented X3. No acute distress. Head: Normal external exam. Normocephalic. Atraumatic. No Lopez signs noted. No raccoon eyes noted Eyes: PERRLA. EOMI. Conjunctiva and sclera normal. Eyelids normal. ENT: TM's Normal. Pharynx normal. Uvula midline. Moist mucous membranes. No trismus noted. No drooling noted. No muffled voice noted. Neck: Normal inspection. Neck supple. FROM. No adenopathy. Thyroid Normal. No meningeal signs. No neck mass noted. CVS: Normal heart rate and rhythm. Heart sound normal. No murmurs noted. Pulses normal throughout. Respiratory: No respiratory distress. Painless inspiration. Breath sounds normal. No wheezes/rales/rhonchi noted. Chest nontender. No accessory muscle usage noted or decreased air movement noted. Abdomen: Soft and nontender. Bowel sounds normal in all 4 quadrants. No distention noted. No organomegaly noted. No visible injury noted. Back: No CVA tenderness. Full range of motion noted. Skin: Skin warm and dry. Normal skin color. Normal skin turgor. No rashes/lesions/lacerations noted. Extremities: Left lower extremities: No lower extremity edema. Extremities exhibit normal range of motion. Extremities nontender. Neuro: Oriented X 3. No motor deficit. No sensory deficit. Reflexes normal. Course Course Course Narrative: Assessment and plan. [age] year old female came in with dysuria (patient with chronic dysuria) UA is showing no UTI, left knee/ankle pain no acute injury showing on the x-ray. Discharge the patient to follow-up with PCP. MDM - Extremity Injury (Lower) Lab Data Attestation: I reviewed the patient's lab results. Labs: Lab Results 07/09/20 Range/Units 22:04 Urine Color YELLOW Urine Appearance CLEAR Urine pH 6.0 (5.0-8.0) Ur Specific [place] 1.025 (1.005-1.025) Urine Protein TRACE (NEG-TRACE) MG/DL Urine Glucose (UA) NEG (NEG) MG/DL Urine Ketones NEG (NEG) MG/DL Urine Blood NEG (NEG) Urine Nitrite NEG (NEG) Ur Leukocyte Esterase NEG (NEG) Imaging Data Left knee/ankle x-ray: Radiologist's impression: Bicompartmental knee joint degenerative changes, most marked medially. Other than mild soft tissue swelling no abnormality is seen in the ankle. Discharge Plan Discharge Clinical Impression: Dysuria Arthralgia Qualifiers: Joint pain location: knee Laterality: left Qualified Code(s): M25.562 - Pain in left knee Patient Disposition: Home, Self-Care Instructions: Dysuria (ED), Arthralgia (ED) Prescriptions: No Action linaclotide [Linzess] 145 mcg capsule 145 mcg PO DAILY Qty: 30 RF: 2 hydrocodone-acetaminophen 5-325 mg tablet 1 tab PO Q6H PRN (Reason: pain) Qty: 12 RF: 0 magnesium oxide 400 mg magnesium capsule 400 mg PO DAILY 7 Days Qty: 7 RF: 0 acetaminophen [Tylenol Extra Strength] 500 mg tablet 500 mg PO Q6H PRN (Reason: pain or fever) Qty: 20 RF: 0 lidocaine [Lidoderm] 5 % adhesive patch,medicated 1 patch topical DAILY MDD remove after 12 hours PRN (Reason: pain) Qty: 30 RF: 0 naproxen 500 mg tablet 500 mg PO BID PRN (Reason: pain) 10 Days Qty: 20 RF: 0 cyclobenzaprine 5 mg tablet 5 mg PO Q8H PRN (Reason: pain (scale score 7-10)) 5 Days Qty: 14 RF: 0 phenazopyridine [Pyridium] 200 mg tablet 200 mg PO TID PRN (Reason: pain) Qty: 6 RF: 0 oxybutynin chloride 10 mg tablet extended release 24hr 10 mg PO DAILY Qty: 30 RF: 6 omeprazole 40 mg capsule,delayed release(DR/EC) 40 mg PO DAILY Qty: 30 RF: 6 docusate sodium [Colace] 100 mg capsule 100 mg PO DAILY RF: 0 Citrucel (sucrose) Powder 1 tbsp PO BID RF: 0 simethicone [Gas Relief (simethicone)] 180 mg capsule 180 mg PO BID PRNRF: 0 metronidazole [Flagyl] 500 mg tablet 500 mg PO TID 10 Days Qty: 30 RF: 0 levofloxacin 750 mg tablet 750 mg PO Q24H 10 Days Qty: 10 RF: 0 dicyclomine 20 mg tablet 20 mg PO QID PRN (Reason: bowel pain) 30 Days Qty: 120 RF: 3 meloxicam 7.5 mg tablet 7.5 mg PO DAILY 30 Days Qty: 30 RF: 0 Referrals: Kathryn Jarquin MD [Primary Care Provider] - 2 days
[2020-07-09 22:09] LABS: Glucose Urine UA NEG (NEG); Leukocyte Esterase Urine NEG (NEG); Nitrite Urine NEG (NEG); Specific Gravity - Urine 1.025 (1.005-1.025); Urine Blood NEG (NEG); Urine Ketones NEG (NEG); Urine Protein TRACE MG/DL (NEG-TRACE)
[2020-07-09 22:11] LABS: Appearance Urine CLEAR; Color Urine YELLOW
== END 2020-07-09 23:11 | disposition home or self-care (01) ==
PROVIDERS: Emergency Provider Emergency Medicine; PCP Family Medicine
DX: M25.562 Pain in left knee (principal); M25.572 Pain in left ankle and joints of left foot; R30.0 Dysuria; Z79.899 Other long term (current) drug therapy
CPT/HCPCS: 73564; 73600; 81003; 99284

== ENCOUNTER 2020-07-28 08:48 | Outpatient (REF) | payer MEDICAID, SELFPAY | END 2020-07-28 08:49 | disposition home or self-care (01) | LOC: HO.HOSX 08:48 | PROVIDERS: Visit Provider Physician Assistant | DX: Z13.89 Encounter for screening for other disorder (principal) ==

== ENCOUNTER → 2020-07-31 12:36 | Outpatient (BNVA) | payer MEDICAID, SELFPAY | PROVIDERS: PCP Family Medicine; Visit Provider Physician Assistant | DX: M17.12 Unilateral primary osteoarthritis, left knee (principal) | CPT/HCPCS: 99212 ==

== ENCOUNTER 2020-08-06 09:45 | Outpatient (REF) | payer MEDICAID, SELFPAY ==
--- NOTE | ~2020-08-06 | US_ITS ---
EXAMINATION: US ABDOMEN LIMITED CLINICAL INFORMATION: WILLETT. COMPARISON: CT abdomen/pelvis 04/08/2020. Ultrasound abdomen limited 12/18/2019 and ultrasound abdomen 07/11/2019. MRI abdomen 07/08/2018. TECHNIQUE: Real-time imaging of the right upper quadrant abdominal viscera. FINDINGS: PANCREAS: The head and the body of the pancreas are unremarkable. The tail of the pancreas is obscured by overlying gas. LIVER: The liver is normal in size. The liver contour is normal. The liver is diffusely echogenic. No focal hepatic lesion. There is no intrahepatic biliary duct dilatation seen. GALLBLADDER: Normal. The gallbladder is physiologically distended without evidence of stones, sludge, polyps, wall thickening or pericholecystic fluid. COMMON BILE DUCT: Normal in caliber measuring 0.38 cm in diameter. RIGHT KIDNEY: There is mild pelvic fullness. No renal calculi or focal parenchymal lesions. The kidney measures 10.0 cm in maximum dimension. FREE FLUID: None. US/US abdomen limited IMPRESSION: Diffuse hepatic steatosis without any focal lesion. There is mild pelvic fullness. Visualized liver, gallbladder and common bile duct appear unremarkable.
== END 2020-08-06 09:46 | disposition home or self-care (01) ==
LOC: HO.US 09:45
PROVIDERS: PCP Family Medicine; Visit Provider Nurse Practitioner
DX: K75.81 Nonalcoholic steatohepatitis (NASH) (principal)
CPT/HCPCS: 76705

== ENCOUNTER 2020-09-09 11:25 | Emergency (ER) | payer MEDICAID, SELFPAY ==
[2020-09-09 12:25] VITALS: BP 157/78; PULSE 83; RESP 18; TEMP 36.6; O2SAT 96; BMI 46.7
--- NOTE | 2020-09-09 12:49 | ED.LOWEXIN ---
HPI - Extremity Injury (Lower) General Chief Complaint: Extremity Injury, Lower Stated Complaint: left knee swollen Time Seen by Provider: 09/09/20 12:31 Source: patient Mode of arrival: ambulatory History of Present Illness HPI Narrative: 65-year-old female with a past medical history of diabetes, GERD, HTN, IBS, urge incontinence, presenting to the ED complaining of acute on chronic left knee pain x a couple days. Reports history of arthritis in that knee in which she previously had cortisone shots and has knee brace at home however feels Brace is too tight. Reports area is inflamed and swollen. Denies new injury/trauma or falls, numbness, tingling, fever, chills complaint: knee injury Related Data Home Medications Medication Instructions Recorded Confirmed docusate sodium 100 mg capsule 100 mg PO DAILY 01/25/20 04/15/20 methylcellulose (with sugar) oral 1 tbsp PO BID 01/25/20 04/15/20 powder simethicone 180 mg capsule 180 mg PO BID PRN 01/25/20 04/15/20 aspirin 81 mg tablet,delayed 81 mg PO DAILY 06/10/20 release clonazepam 2 mg tablet 2 mg PO DAILY 06/10/20 lisinopril 40 mg tablet 40 mg PO DAILY 06/10/20 simvastatin 20 mg tablet 20 mg PO DAILY 06/10/20 Previous Rx's Medication Instructions Recorded hydrocodone-acetaminophen 1 tab PO Q6H PRN #12 tab 04/08/20 magnesium oxide 400 mg PO DAILY 7 Days #7 cap 04/08/20 oxybutynin chloride 10 mg 10 mg PO DAILY #30 tab 04/15/20 tablet,extended release 24 hr dicyclomine 20 mg tablet 20 mg PO QID PRN 30 Days #120 tab 05/13/20 levofloxacin 750 mg tablet 750 mg PO Q24H 10 Days #10 tab 05/13/20 metronidazole 500 mg tablet 500 mg PO TID 10 Days #30 tab 05/13/20 acetaminophen [Tylenol Extra 500 mg PO Q6H PRN #20 tab 05/28/20 Strength] cyclobenzaprine 5 mg PO Q8H PRN 5 Days #14 tab 05/28/20 lidocaine [Lidoderm] 1 patch TOPICAL DAILY PRN #30 ea 05/28/20 MDD remove after 12 hours naproxen 500 mg PO BID PRN 10 Days #20 tab 05/28/20 linaclotide 145 mcg capsule 145 mcg PO DAILY #30 cap 05/30/20 meloxicam 7.5 mg tablet 7.5 mg PO DAILY 30 Days #30 tab 06/20/20 omeprazole 40 mg capsule,delayed 40 mg PO DAILY #30 cap 06/25/20 release phenazopyridine [Pyridium] 200 mg PO TID PRN #6 tab 06/25/20 acetaminophen [Tylenol Extra 500 mg PO Q6H PRN #20 tab 09/09/20 Strength] naproxen 500 mg PO BID PRN 10 Days #20 tab 09/09/20 Allergies Allergy/AdvReac Type Severity Reaction Status Date / Time No Known Allergies Allergy Unknown UNKNOWN Verified 07/31/20 12:44 [NO KNOWN ALLERGIES] Review of Systems Review of Systems: Constitutional: No Fever, No Chills, No Fatigue, No Malaise Cardiovascular: No Chest Pain, No SOB, No Edema Respiratory: No Cough Musculoskeletal: + joint pain, No Myalgias, + Joint Swelling Skin: No Skin Lesions, No rash Neuro: No Weakness, No Numbness, No Headache Yes all other systems are reviewed and are negative [facility] Past Medical History Attestation statement: The following information was validated with the patient. Medical History Chronic idiopathic constipation Diabetes 1.5, managed as type 2 Dysuria GERD (gastroesophageal reflux disease) HTN (hypertension) Irritable bowel syndrome with constipation KIRSTIE (stress urinary incontinence, female) Urge incontinence Surgical History History of esophagogastroduodenoscopy (EGD) Hx of colonoscopy Family History Family History Father Family hx of prostate cancer Cancer Brother Cancer Mother HTN (hypertension) Maternal Aunt Skin cancer, Onset Age: 59 Social History Social History Household Members: None Alcohol intake: never Advance Directives: No Advance Directives Information Provided: No Patient : No Current occupational status: disabled Physical Exam Vital Signs: Vital Signs: Last Vital Signs Temp 97.8 F 09/09/20 12:25 Pulse 83 09/09/20 12:25 Resp 18 09/09/20 12:25 BP 157/78 H 09/09/20 12:25 Pulse Ox 96 09/09/20 12:25 Body Mass Index 46.7 Const: General: cooperative, healthy appearing and comfortable Orientation/consciousness: patient oriented x3 Limitations: no limitations HENMT: Head: Yes normal to inspection Ears: hearing grossly normal bilaterally General nose exam: Normal external nose present Face and sinus: Yes normal facial exam Eyes: General: appearance normal, both eyes and all related structures EOM: EOMs intact bilaterally Neck: Neck: Yes normal visual inspection and Yes no lymphadenopathy Resp: Effort & Inspection: normal respiratory effort Cardio: Rate: regular rate Peripheral pulses: dorsalis pedis present GI: Inspection: Yes normal to inspection Skin: Rashes: no rashes Wounds: no wounds Neuro: General: patient oriented x3 Gait exam (Neuro): Normal gait present Extrem: Other: Left knee with slight swelling. Tender to palpation. Decreased flexion secondary to pain. Neurovascularly intact distally. No evidence of trauma/erythema/ecchymosis General: Yes normal to inspection MDM - Extremity Injury (Lower) MDM Narrative Medical decision making narrative: 65-year-old female with a past medical history of diabetes, GERD, HTN, IBS, urge incontinence, presenting to the ED complaining of acute on chronic left knee pain x a couple days. On exam VSS, NAD, well appearing, history/exam consistent with likely left knee arthritis. Patient noncompliant with previous remedies, discussed importance of knee bracing, elevation, ice, and taking anti-inflammatories. She is to follow-up with her PCP Discharge Plan Discharge Clinical Impression: Chronic knee pain Qualifiers: Laterality: left Qualified Code(s): M25.562 - Pain in left knee Patient Disposition: Home, Self-Care Instructions: Arthritis (ED) Additional Instructions: wear Jonh wrap at all times at home for stability / comfort and swelling. He should be wearing her knee brace. Naproxen as an anti-inflammatory/pain medication, take with food. Continue taking Tylenol Arthritis home. Elevate your leg. Follow-up with your primary care doctor use la envoltura Jonh en todo momento en casa para mayor estabilidad / comodidad e hinchaz?n. Deber?a llevar montilla rodillera. El naproxeno debbie medicamento antiinflamatorio / analg?sico, t?quintanilla con las comidas. Contin?e tomando Tylenol Arthritis en casa. [place] tu pierna. Seguimiento con montilla m?dico de atenci?n primaria Prescriptions: New acetaminophen [Tylenol Extra Strength] 500 mg tablet 500 mg PO Q6H PRN (Reason: pain or fever) Qty: 20 RF: 0 naproxen 500 mg tablet 500 mg PO BID PRN (Reason: pain) 10 Days Qty: 20 RF: 0 No Action linaclotide [Linzess] 145 mcg capsule 145 mcg PO DAILY Qty: 30 RF: 2 hydrocodone-acetaminophen 5-325 mg tablet 1 tab PO Q6H PRN (Reason: pain) Qty: 12 RF: 0 magnesium oxide 400 mg magnesium capsule 400 mg PO DAILY 7 Days Qty: 7 RF: 0 acetaminophen [Tylenol Extra Strength] 500 mg tablet 500 mg PO Q6H PRN (Reason: pain or fever) Qty: 20 RF: 0 lidocaine [Lidoderm] 5 % adhesive patch,medicated 1 patch topical DAILY MDD remove after 12 hours PRN (Reason: pain) Qty: 30 RF: 0 naproxen 500 mg tablet 500 mg PO BID PRN (Reason: pain) 10 Days Qty: 20 RF: 0 cyclobenzaprine 5 mg tablet 5 mg PO Q8H PRN (Reason: pain (scale score 7-10)) 5 Days Qty: 14 RF: 0 phenazopyridine [Pyridium] 200 mg tablet 200 mg PO TID PRN (Reason: pain) Qty: 6 RF: 0 oxybutynin chloride 10 mg tablet extended release 24hr 10 mg PO DAILY Qty: 30 RF: 6 omeprazole 40 mg capsule,delayed release(DR/EC) 40 mg PO DAILY Qty: 30 RF: 6 docusate sodium [Colace] 100 mg capsule 100 mg PO DAILY RF: 0 Citrucel (sucrose) Powder 1 tbsp PO BID RF: 0 simethicone [Gas Relief (simethicone)] 180 mg capsule 180 mg PO BID PRNRF: 0 metronidazole [Flagyl] 500 mg tablet 500 mg PO TID 10 Days Qty: 30 RF: 0 levofloxacin 750 mg tablet 750 mg PO Q24H 10 Days Qty: 10 RF: 0 dicyclomine 20 mg tablet 20 mg PO QID PRN (Reason: bowel pain) 30 Days Qty: 120 RF: 3 meloxicam 7.5 mg tablet 7.5 mg PO DAILY 30 Days Qty: 30 RF: 0 Referrals: Kathryn Jarquin MD [Primary Care Provider] - 2 days Discharge Date/Time: 09/09/20 13:27 Print Language: Armenian
[2020-09-09] MEDS: Ketorolac Tromethamine 30 MG/ML VIAL IM (13:14)
== END 2020-09-09 13:27 | disposition home or self-care (01) ==
PROVIDERS: Emergency Provider Emergency Medicine; PCP Family Medicine
DX: M25.562 Pain in left knee (principal); R22.42 Localized swelling, mass and lump, left lower limb; E11.9 Type 2 diabetes mellitus without complications; I10 Essential (primary) hypertension
CPT/HCPCS: 96372; 99283; 99284; J1885

== ENCOUNTER → 2020-10-16 16:00 | Outpatient (BNVA) | payer MEDICAID, SELFPAY | PROVIDERS: Visit Provider Nurse Practitioner ==

== ENCOUNTER 2020-11-19 17:53 | Emergency (ER) | payer MEDICAID, SELFPAY ==
--- NOTE | ~2020-11-19 | XR_ITS ---
EXAMINATION: XR TOES, LEFT CLINICAL INFORMATION: Evaluate for fracture fourth digit COMPARISON: None TECHNIQUE: 4 views are submitted FINDINGS: One view there is a step-off involving the cortex of the distal phalanx of the fourth digit. A fracture cannot be excluded. Exam is limited as the toes are flexed. XR/XR toe LT min 2V IMPRESSION: As described small step-off dorsally involving the distal phalanx of the fourth digit. Fracture here cannot be excluded. Limited study.
--- NOTE | ~2020-11-19 | CT_ITS ---
Indication: Trauma EXAMINATION: CT of the facial bone CT cervical spine, CT brain. Radiation diagnosis 563, 391 and 386. Axial imaging with coronal and sagittal reformatted images. CT cervical spine; No acute fracture or dislocation. CT brain; No midline shift. No mass effect. No hemorrhage. The basilar cisterns are patent. Scattered white matter ischemic changes noted. No extra-axial collection. No fracture is seen on the bone windows. CT facial bones; No fracture. CT/CT facial bones wo con IMPRESSION: Negative acute noncontrast CT brain. White matter ischemic changes are noted. No acute fracture or dislocation of the cervical spine. No acute fracture facial bones
--- NOTE | ~2020-11-19 | CT_ITS ---
Indication: Trauma EXAMINATION: CT of the facial bone CT cervical spine, CT brain. Radiation diagnosis 563, 391 and 386. Axial imaging with coronal and sagittal reformatted images. CT cervical spine; No acute fracture or dislocation. CT brain; No midline shift. No mass effect. No hemorrhage. The basilar cisterns are patent. Scattered white matter ischemic changes noted. No extra-axial collection. No fracture is seen on the bone windows. CT facial bones; No fracture. CT/CT cervical spine wo con IMPRESSION: Negative acute noncontrast CT brain. White matter ischemic changes are noted. No acute fracture or dislocation of the cervical spine. No acute fracture facial bones
--- NOTE | ~2020-11-19 | CT_ITS ---
Indication: Trauma EXAMINATION: CT of the facial bone CT cervical spine, CT brain. Radiation diagnosis 563, 391 and 386. Axial imaging with coronal and sagittal reformatted images. CT cervical spine; No acute fracture or dislocation. CT brain; No midline shift. No mass effect. No hemorrhage. The basilar cisterns are patent. Scattered white matter ischemic changes noted. No extra-axial collection. No fracture is seen on the bone windows. CT facial bones; No fracture. CT/CT head/brain wo con IMPRESSION: Negative acute noncontrast CT brain. White matter ischemic changes are noted. No acute fracture or dislocation of the cervical spine. No acute fracture facial bones
[2020-11-19 19:01] VITALS: BP 172/85; PULSE 85; RESP 18; TEMP 36.6; O2SAT 98; BMI 40.0
--- NOTE | 2020-11-19 19:50 | ED.GENADULT ---
HPI - General Adult General Chief complaint: Head Injury Stated complaint: FALL Time Seen by Provider: 11/19/20 19:40 Source: patient Mode of arrival: ambulatory Limitations: no limitations History of Present Illness HPI narrative: Patient comes emergency room complaining of a fall. Patient states 2 days ago, patient fell on the stairs, states it was a mechanical fall. Patient was trying to walk down the stairs with the lights off, the stairs do not have hand rail. Patient missed a step and fell on her left side of her body. Patient did not lose consciousness, did hit her head, patient takes baby aspirin every day. Patient complaining also of pain all over her body. After a fall, patient was able to get up, has been able to walk but just feels achy all over. Patient uses a cane at baseline, states she has been ambulatory but less than usual Related Data Home Medications Medication Instructions Recorded Confirmed docusate sodium 100 mg capsule 100 mg PO DAILY 01/25/20 04/15/20 (Colace) methylcellulose (with sugar) oral 1 tbsp PO BID 01/25/20 04/15/20 powder (Citrucel (sucrose)) aspirin 81 mg tablet,delayed 81 mg PO DAILY 06/10/20 release (Adult Aspirin Regimen) clonazepam 2 mg tablet 2 mg PO DAILY 06/10/20 lisinopril 40 mg tablet 40 mg PO DAILY 06/10/20 simvastatin 20 mg tablet 20 mg PO DAILY 06/10/20 Previous Rx's Medication Instructions Recorded hydrocodone 5 mg-acetaminophen 325 1 tab PO Q6H PRN #12 tab 04/08/20 mg tablet magnesium oxide 400 mg PO DAILY 7 Days #7 cap 04/08/20 oxybutynin chloride 10 mg 10 mg PO DAILY #30 tab 04/15/20 tablet,extended release 24 hr dicyclomine 20 mg tablet 20 mg PO QID PRN 30 Days #120 tab 05/13/20 levofloxacin 750 mg tablet 750 mg PO Q24H 10 Days #10 tab 05/13/20 acetaminophen 500 mg tablet 500 mg PO Q6H PRN #20 tab 05/28/20 (Tylenol Extra Strength) cyclobenzaprine 5 mg tablet 5 mg PO Q8H PRN 5 Days #14 tab 05/28/20 lidocaine 5 % topical patch 1 patch TOPICAL DAILY PRN #30 ea 02/24/21 (Lidoderm) MDD remove after 12 hours naproxen 500 mg tablet 500 mg PO BID PRN 10 Days #20 tab 05/28/20 meloxicam 7.5 mg tablet 7.5 mg PO DAILY 30 Days #30 tab 06/20/20 phenazopyridine 200 mg tablet 200 mg PO TID PRN #6 tab 06/25/20 (Pyridium) acetaminophen 500 mg tablet 500 mg PO Q6H PRN #20 tab 09/09/20 (Tylenol Extra Strength) linaclotide 145 mcg capsule 145 mcg PO DAILY #30 cap 10/16/20 (Linzess) omeprazole 40 mg capsule,delayed 40 mg PO DAILY #30 cap 10/16/20 release simethicone 180 mg capsule (Gas 180 mg PO BID 30 Days #60 cap 10/16/20 Relief (simethicone)) acetaminophen 650 mg 650 mg PO Q8H PRN #20 tab 11/19/20 tablet,extended release Allergies Allergy/AdvReac Type Severity Reaction Status Date / Time No Known Allergies Allergy Unknown UNKNOWN Verified 11/19/20 19:01 [NO KNOWN ALLERGIES] Review of Systems Review of Systems: Constitutional : No Weight loss, No Fever, No Chills, No Night Sweats, No Fatigue, No Malaise ENT/Mouth : No Hearing loss, No Ear Pain, No Nasal Congestion, No Sinus Pain, No Hoarseness, No sore throat, No Rhinorrhea, No Swallowing Difficulty Eyes: No Eye Pain, No Swelling, No Redness, No Foreign Body, No Discharge, No Vision Changes Cardiovascular : No Chest Pain, No SOB, No Dyspnea on Exertion, No Orthopnea, No Edema, No Palpitations Respiratory : No Cough, No Sputum, No Wheezing, No Smoke Exposure, No Dyspnea Gastrointestinal : No Nausea, No Vomiting, No Diarrhea, No Constipation, No abdominal Pain, No Hematochezia, No Melena Genitourinary : no irregular bleeding, No Dysuria, No Urinary Frequency, No Hematuria, No Urinary Incontinence, No Urgency, No Flank Pain, No Urinary Flow Changes, No Hesitancy Musculoskeletal : No joint pain, No Myalgias, No Joint Swelling Skin : Multiple ecchymoses in head, face, upper and lower extremities Neuro : No Weakness, No Numbness, No Paresthesias, No Loss of Consciousness, No Dizziness, No Headache Psych : No Anxiety/Panic, No Depression, No SI/HI/AH/VH, No Social Issues, Heme/Lymph: No Bruising, No Bleeding,No Lymphadenopathy Endocrine : No Polyuria, No Polydipsia, No Temperature Intolerance [facility] Past Medical History Medical History Chronic idiopathic constipation Diabetes 1.5, managed as type 2 Dysuria GERD (gastroesophageal reflux disease) HTN (hypertension) Irritable bowel syndrome with constipation KIRSTIE (stress urinary incontinence, female) Urge incontinence Surgical History History of esophagogastroduodenoscopy (EGD) Hx of colonoscopy Family History Family History Father Family hx of prostate cancer Cancer Brother Cancer Mother HTN (hypertension) Maternal Aunt Skin cancer, Onset Age: 59 Social History Social History Household Members: None Alcohol intake: never Advance Directives: No Advance Directives Information Provided: No Patient : No Current occupational status: disabled Physical Exam Vital Signs: Vital Signs: Last Vital Signs Temp 97.8 F 11/19/20 19:01 Pulse 74 11/19/20 20:34 Resp 16 11/19/20 20:34 BP 167/70 H 11/19/20 20:34 Pulse Ox 98 11/19/20 20:34 Body Mass Index 40.0 Const: Other: Appearance: Alert. Oriented X3. No acute distress. Eyes: Pupils equal, round and reactive to light. Ecchymosis to the lateral aspect of the right eye. Patient is able to move eyes in all directions without limitations of range of motion or due to pain ENT: Pharynx normal. Neck: Normal inspection. Neck supple. No lymph nodes noted. No crepitus CVS: Normal heart rate and rhythm. Pulses normal. Normal S1 and S2 Respiratory: No respiratory distress. Breath sounds normal. No Wheezing. No rales Abdomen: Soft and nontender. No rigidity. No distention. good BS x4 Skin: Skin warm and dry patient has multiple ecchymoses and forehead, face, upper and lower extremities, largest 1 in the left upper thigh, mild discomfort to palpation, not tense, does not seem to be an expanding hematoma Extremities: No lower extremity edema. No lower extremity edema. No Lacerations. No Rash Neuro: Oriented X 3. No motor deficit. No sensory deficit. Moving all extermities. No slurred speech. Course Course Course Narrative: I discussed the imaging with the patient, it is possible that she may have a fracture in her 4th digit and the left foot. Patient's stools have been aleyda-taped, instructed to continue doing so, patient will follow-up with her primary care physician. Patient was given Tylenol for pain, states that her pain nearly resolved Medical Decision Making Imaging Data CT of the head, facial bones, cervical spine: Radiologist's impression: EXAMINATION: CT of the facial bone CT cervical spine, CT brain. Radiation diagnosis 563, 391 and 386. Axial imaging with coronal and sagittal reformatted images. CT cervical spine; No acute fracture or dislocation. CT brain; No midline shift. No mass effect. No hemorrhage. The basilar cisterns are patent. Scattered white matter ischemic changes noted. No extra-axial collection. No fracture is seen on the bone windows. CT facial bones; No fracture. CT/CT cervical spine wo con IMPRESSION: Negative acute noncontrast CT brain. White matter ischemic changes are noted. ? No acute fracture or dislocation of the cervical spine. ? No acute fracture facial bones Toes x-ray: Radiologist's impression: FINDINGS: One view there is a step-off involving the cortex of the distal phalanx of the fourth digit. A fracture cannot be excluded. Exam is limited as the toes are flexed. XR/XR toe LT min 2V IMPRESSION: As described small step-off dorsally involving the distal phalanx of the fourth digit. Fracture here cannot be excluded. Limited study. Discharge Plan Discharge Clinical Impression: Multiple contusions Fall Qualifiers: Encounter type: initial encounter Qualified Code(s): W19.XXXA - Unspecified fall, initial encounter Fracture of toe Qualifiers: Encounter type: initial encounter Toe: unspecified toe Fracture type: closed Fracture alignment: nondisplaced Laterality: left Qualified Code(s): S92.912A - Unspecified fracture of left toe(s), initial encounter for closed fracture Patient Disposition: Home, Self-Care Instructions: Toe Fracture (ED), Facial Contusion (ED) Additional Instructions: Please follow-up with your primary care physician tomorrow. If you have any worsening or new symptoms, please return to the emergency room or call 911 Prescriptions: New acetaminophen 650 mg tablet extended release 650 mg PO Q8H PRN (Reason: pain) Qty: 20 RF: 0 No Action hydrocodone-acetaminophen 5-325 mg tablet 1 tab PO Q6H PRN (Reason: pain) Qty: 12 RF: 0 magnesium oxide 400 mg magnesium capsule 400 mg PO DAILY 7 Days Qty: 7 RF: 0 acetaminophen [Tylenol Extra Strength] 500 mg tablet 500 mg PO Q6H PRN (Reason: pain or fever) Qty: 20 RF: 0 lidocaine [Lidoderm] 5 % adhesive patch,medicated 1 patch topical DAILY MDD remove after 12 hours PRN (Reason: pain) Qty: 30 RF: 0 naproxen 500 mg tablet 500 mg PO BID PRN (Reason: pain) 10 Days Qty: 20 RF: 0 cyclobenzaprine 5 mg tablet 5 mg PO Q8H PRN (Reason: pain (scale score 7-10)) 5 Days Qty: 14 RF: 0 phenazopyridine [Pyridium] 200 mg tablet 200 mg PO TID PRN (Reason: pain) Qty: 6 RF: 0 acetaminophen [Tylenol Extra Strength] 500 mg tablet 500 mg PO Q6H PRN (Reason: pain or fever) Qty: 20 RF: 0 oxybutynin chloride 10 mg tablet extended release 24hr 10 mg PO DAILY Qty: 30 RF: 6 docusate sodium [Colace] 100 mg capsule 100 mg PO DAILY RF: 0 Citrucel (sucrose) Powder 1 tbsp PO BID RF: 0 levofloxacin 750 mg tablet 750 mg PO Q24H 10 Days Qty: 10 RF: 0 dicyclomine 20 mg tablet 20 mg PO QID PRN (Reason: bowel pain) 30 Days Qty: 120 RF: 3 meloxicam 7.5 mg tablet 7.5 mg PO DAILY 30 Days Qty: 30 RF: 0 omeprazole 40 mg capsule,delayed release(DR/EC) 40 mg PO DAILY Qty: 30 RF: 6 Linzess 145 mcg capsule 145 mcg PO DAILY Qty: 30 RF: 6 simethicone [Gas Relief (simethicone)] 180 mg capsule 180 mg PO BID 30 Days Qty: 60 RF: 6
[2020-11-19 20:34] VITALS: BP 167/70; PULSE 74; RESP 16; O2SAT 98
[2020-11-19] MEDS: Acetaminophen 325 MG TABLET 650 MG PO (20:45)
== END 2020-11-19 21:42 | disposition home or self-care (01) ==
PROVIDERS: Emergency Provider Emergency Medicine; PCP Family Medicine
DX: S92.535A Nondisplaced fracture of distal phalanx of left lesser toe(s), initial encounter for closed fracture (principal); S05.11XA Contusion of eyeball and orbital tissues, right eye, initial encounter; S00.83XA Contusion of other part of head, initial encounter; S70.12XA Contusion of left thigh, initial encounter; S40.022A Contusion of left upper arm, initial encounter; W10.8XXA Fall (on) (from) other stairs and steps, initial encounter; M79.10 Myalgia, unspecified site; I10 Essential (primary) hypertension; E11.9 Type 2 diabetes mellitus without complications; Z79.899 Other long term (current) drug therapy; Z79.82 Long term (current) use of aspirin; Z79.02 Long term (current) use of antithrombotics/antiplatelets; Y93.89 Activity, other specified; Y92.018 Other place in single-family (private) house as the place of occurrence of the external cause; Y99.9 Unspecified external cause status
CPT/HCPCS: 70450; 70486; 72125; 73660; 96374; 99284

== ENCOUNTER → 2020-11-25 13:22 | Outpatient (BNVA) | payer MEDICAID, SELFPAY | PROVIDERS: PCP Family Medicine; Visit Provider Nurse Practitioner ==

== ENCOUNTER 2020-12-15 12:20 | Outpatient (REF) | payer MEDICAID, SELFPAY ==
[2020-12-15 14:32] LABS: Alanine Aminotransferase 10 U/L (0-31); Albumin Level 4.5 g/dL (3.5-5.0); Alkaline Phosphatase 115 U/L (39-117); Aspartate Amino Transferase 15 U/L (5-31); Bilirubin Direct < 0.2 mg/dL (0.0-0.5); Bilirubin Total 0.4 mg/dL (0.0-1.0); Total Protein 6.9 g/dL (6.5-8.0)
[2020-12-16 12:07] LABS: Alpha Fetoprotein 2.6 ng/mL
== END 2020-12-15 12:21 | disposition home or self-care (01) ==
LOC: HO.LAB 12:20
PROVIDERS: PCP Family Medicine; Visit Provider Nurse Practitioner
DX: K75.81 Nonalcoholic steatohepatitis (NASH) (principal)
CPT/HCPCS: 36415; 80076; 82105

== ENCOUNTER → 2021-03-23 15:17 | Outpatient (BNVA) | payer MEDICAID, SELFPAY | PROVIDERS: PCP Family Medicine; Referring Provider Family Medicine; Visit Provider Nurse Practitioner | DX: R10.9 Unspecified abdominal pain (principal); R14.0 Abdominal distension (gaseous); K75.81 Nonalcoholic steatohepatitis (NASH); K59.04 Chronic idiopathic constipation; K21.9 Gastro-esophageal reflux disease without esophagitis | CPT/HCPCS: 99212 ==

== ENCOUNTER 2021-04-01 11:07 | Emergency (ER) | payer MEDICAID, SELFPAY ==
[2021-04-01 13:05] VITALS: BP 133/70; PULSE 82; RESP 18; TEMP 36.2; O2SAT 98; BMI 41.1
== END 2021-04-01 19:44 | disposition left against medical advice (07) ==
PROVIDERS: Emergency Provider Emergency Medicine
DX: R10.9 Unspecified abdominal pain (principal)
CPT/HCPCS: 99281; 99282

== ENCOUNTER 2021-04-08 13:59 | Outpatient (REF) | payer MEDICAID, SELFPAY ==
[2021-04-09 09:04] LABS: BV Int Neg Control Negative (Negative); BV Int Pos Control Positive (Positive)
== END 2021-04-08 14:00 | disposition home or self-care (01) ==
LOC: HO.LAB 13:59
PROVIDERS: Visit Provider Obstetrics & Gynecology
DX: R10.2 Pelvic and perineal pain (principal); R30.0 Dysuria
CPT/HCPCS: 87480; 87510; 87660; 99212

== ENCOUNTER 2021-04-09 12:37 | Outpatient (REF) | payer MEDICAID, SELFPAY ==
[2021-04-09 13:54] LABS: Appearance Urine CLEAR; Color Urine STRAW; Glucose Urine UA NEG (NEG); Leukocyte Esterase Urine NEG (NEG); Nitrite Urine NEG (NEG); PH 5.5 (5.0-8.0); Specific Gravity - Urine 1.015 (1.005-1.025); Urine Blood NEG (NEG); Urine Ketones NEG (NEG); Urine Protein NEG (NEG-TRACE)
== END 2021-04-09 12:38 | disposition home or self-care (01) ==
LOC: HO.LAB 12:37
PROVIDERS: Visit Provider Obstetrics & Gynecology
DX: R30.0 Dysuria (principal)
CPT/HCPCS: 81003

== ENCOUNTER → 2021-04-22 13:49 | Outpatient (BNVA) | payer MEDICARE, MEDICAID, SELFPAY | PROVIDERS: PCP Family Medicine; Visit Provider Obstetrics & Gynecology | DX: R10.2 Pelvic and perineal pain (principal) | CPT/HCPCS: 99212 ==

== ENCOUNTER 2021-04-28 12:35 | Outpatient (REF) | payer MEDICARE, MEDICAID, SELFPAY ==
--- NOTE | ~2021-04-28 | US_ITS ---
EXAMINATION: US PELVIS CLINICAL INFORMATION: Pelvic and perineal pain. COMPARISON: None TECHNIQUE: Ultrasound of the pelvis is performed using both transabdominal and transvaginal transducers along with Doppler. Transvaginal imaging is performed due to inadequate visualization transabdominally. FINDINGS: The uterus has been surgically removed. Both ovaries are not visualized. There is no adnexal mass or free fluid. US/US pelvic and transvaginal IMPRESSION: Status post total hysterectomy and oophorectomy. No pelvic mass of free fluid seen.
== END 2021-04-28 12:36 | disposition home or self-care (01) ==
LOC: HO.US 12:35
PROVIDERS: Visit Provider Obstetrics & Gynecology
DX: R10.2 Pelvic and perineal pain (principal)
CPT/HCPCS: 76830; 76856

== ENCOUNTER → 2021-05-12 13:45 | Outpatient (BNVA) | payer MEDICAID, SELFPAY | PROVIDERS: PCP Family Medicine; Visit Provider Obstetrics & Gynecology ==

== ENCOUNTER 2021-06-14 19:55 | Emergency (ER) | payer MEDICARE, MEDICAID, SELFPAY ==
[2021-06-14 20:06] VITALS: BP 144/79; PULSE 77; RESP 18; TEMP 36.9; O2SAT 97; BMI 32.1
[2021-06-14 21:20] LABS: MANUAL DIFF FLAG NO
[2021-06-14 21:21] LABS: Appearance Urine CLEAR; Color Urine YELLOW; Glucose Urine UA NEG (NEG); Leukocyte Esterase Urine NEG (NEG); Nitrite Urine NEG (NEG); Specific Gravity - Urine 1.025 (1.005-1.025); Urine Blood NEG (NEG); Urine Ketones 5 MG/DL (NEG); Urine Protein NEG (NEG-TRACE)
[2021-06-14 21:37] LABS: Basophils Percent Auto 0.3 % (0-2); Eosinophils Absolute Auto 0.1 X10*3/uL (0.0-0.4); Eosinophils Percent Auto 0.8 % (0-4); Hematocrit 38.1 % (37.0-47.0); Hemoglobin 11.6 g/dl (12.0-16.0); Imm Gran Abs Auto 0.07 X10*3/uL (0.00-0.03); Imm Gran Pct Auto 0.5 % (0.0-0.4); Lymphocytes Absolute Auto 2.4 X10*3/uL (1.2-4.9); Lymphocytes Percent Auto 17.6 % (20-40); Mean Corpuscular HGB Conc 30.4 g/dl (31.0-35.0); Mean Platelet Volume 11.4 fL (9.4-12.3); Monocytes Absolute Auto 0.6 X10*3/uL (0.1-1.2); Neutrophils Absolute Auto 10.5 x10*3/uL (2.0-8.3); Neutrophils Percent Auto 76.8 % (45-73); Platelet Count 204 X10*3/uL (160-400); Red Blood Count 4.14 X10*6/uL (4.20-5.50); Red Cell Distribution Width 13.8 % (11.0-16.0); White Blood Count 13.7 X10*3/uL (4.8-10.8)
[2021-06-14 21:46] LABS: Alanine Aminotransferase 10 U/L (0-31); Albumin Level 4.1 g/dL (3.5-5.0); Alkaline Phosphatase 88 U/L (39-117); Anion Gap 14 (12-20); Aspartate Amino Transferase 14 U/L (5-31); Bilirubin Direct < 0.2 mg/dL (0.0-0.5); Bilirubin Total < 0.2 mg/dL (0.0-1.0); Blood Urea Nitrogen 26 mg/dL (9-16); Calcium 9.6 mg/dL (8.4-10.2); Carbon Dioxide 25 mmol/L (22-29); Chloride 103 mmol/L (96-108); Creatinine Clr Calc Pharmacy 37.2; Estimated Glomerular Filt Rate 41; Glucose Random 154 mg/dL (60-115); Lipase 21 U/L (8-78); Potassium 4.5 mmol/L (3.3-5.1); Sodium 137 mmol/L (135-145); Total Protein 6.8 g/dL (6.5-8.0)
== END 2021-06-15 03:25 | disposition left against medical advice (07) ==
PROVIDERS: Emergency Provider Emergency Medicine
DX: R30.0 Dysuria (principal); R10.9 Unspecified abdominal pain; Z79.899 Other long term (current) drug therapy
CPT/HCPCS: 36415; 80053; 81003; 82248; 83690; 85025; 99283

== ENCOUNTER 2021-06-16 16:44 | Emergency (ER) | payer MEDICARE, MEDICAID, SELFPAY ==
--- NOTE | ~2021-06-16 | CT_ITS ---
EXAMINATION: CT ABDOMEN AND PELVIS WITH CONTRAST CLINICAL INFORMATION: Abdominal pain. COMPARISON: Abdominal ultrasound dated from 08/06/2020. Pelvic ultrasound dated from 04/28/2021. CT abdomen/pelvis dated from 04/08/2020. TECHNIQUE: Multidetector volumetric images were obtained from the superior aspect of the liver through the pubic symphysis following administration 85 mL of Omnipaque 350 intravenous contrast. Sagittal and coronal reformatted images were obtained on the technologist's workstation. Oral contrast: No This CT examination was performed using dose optimization techniques as appropriate, variously including the following: *Automated exposure control *Adjustment of mA and/or kV according to patient size (this includes techniques or standardized protocols for targeted exams where dose is matched to indication/reason for exam; i.e. extremities or head) *Use of iterative reconstruction technique DLP: 689 mGy-cm FINDINGS: LUNG BASES: Redemonstration of numerous sub-6 mm calcified pulmonary nodules. Subsegmental atelectasis. No focal consolidation or pleural effusion. Coronary calcifications. LIVER, GALLBLADDER, AND BILIARY TREE: The liver is normal in size, shape, and attenuation. No focal hepatic lesion or biliary ductal dilatation is present. The gallbladder is unremarkable with no evidence of radiopaque gallstones, gallbladder wall thickening, or obvious pericholecystic inflammatory changes. PANCREAS: Unremarkable. SPLEEN: Unremarkable. ADRENAL GLANDS: Unremarkable. KIDNEYS AND URETERS: The kidneys are normal in size, shape, and attenuation. No hydronephrosis, hydroureter, or calculi seen. No perinephric stranding. BLADDER: Unremarkable. GASTROINTESTINAL TRACT: The stomach and the small bowel are nondilated. Mild wall thickening and fat stranding in the sigmoid colon centered around several diverticuli. No drainable collection or free air. No bowel obstruction. Normal appendix. ABDOMINAL WALL: Postsurgical changes from prior hernia repair with an anterior abdominal wall mesh. There is similar degree of very mild fat stranding anterior to this mesh in the abdominal wall which is nonspecific. No drainable collection. LYMPH NODES: No lymphadenopathy by size criteria. VASCULAR: Extensive atherosclerotic disease. The abdominal aorta is of normal caliber. PELVIC VISCERA: Prior hysterectomy. Stable asymmetric soft tissue thickening in the left pelvis (4:485) since 2019 possibly representing the left ovary or in part postsurgical scarring. The right ovary is not definitely identified. OSSEOUS STRUCTURES: No acute or aggressive appearing osseous abnormalities. Mild thoracolumbar spondylosis. CT/CT abdomen pelvis w con IMPRESSION: Findings suggestive of acute sigmoid diverticulitis. However, the degree of inflammatory changes is not significant and some of the wall thickening could likely be explained by muscular hypertrophy secondary to bouts of diverticulitis. Correlation with the colonoscopy is recommended after resolution of the acute symptoms to ensure the absence of underlying lesions.
[2021-06-16 17:48] VITALS: BP 148/83; PULSE 77; RESP 18; TEMP 36.8; O2SAT 98; BMI 30.9
[2021-06-16 18:06] LABS: Appearance Urine CLEAR; Color Urine YELLOW; Glucose Urine UA NEG (NEG); Leukocyte Esterase Urine NEG (NEG); Nitrite Urine NEG (NEG); PH 5.5 (5.0-8.0); Specific Gravity - Urine 1.025 (1.005-1.025); Urine Blood NEG (NEG); Urine Ketones NEG (NEG); Urine Protein NEG (NEG-TRACE)
--- NOTE | 2021-06-16 19:17 | ECG_ITS ---
Test Reason : ABDOMINAL PAIN Blood Pressure : / mmHG Vent. Rate : 069 BPM Atrial Rate : 069 BPM P-R Int : 142 ms QRS Dur : 076 ms QT Int : 392 ms P-R-T Axes : 031 046 060 degrees QTc Int : 420 ms Normal sinus rhythm Normal ECG When compared with ECG of 07-JUL-2018 05:41, No significant change was found Referred By: Kavita Guzmán Electronically Signed By:RADHA JACOBSON
--- NOTE | 2021-06-16 19:22 | ED.FEMALEGU ---
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 Patient states that patient has been having lower abdominal pain for the last 2 weeks. Patient states that she was previously treated for a UTI but the pain is still there. Patient denies any dizziness, lightheadedness, nausea, vomiting, fever, chills, blurry vision, double vision, loss of vision, chest pain, difficulty breathing, shortness of breath, back pain, night sweats, increased urinary urgency, blood in her urine or stool, vaginal bleeding, vaginal discharge, syncope or a near syncopal episode, recent trauma or falls, bowel incontinence, bladder incontinence, bowel retention, bladder retention, or any other complaints at this time. Pertinent past history: recurrent UTIs Onset (ago): week(s) Location of symptoms: suprapubic, LLQ and RLQ Severity: mild Severity scale (1-10): 4 Quality of pain: dull Consistency: constant Vaginal discharge: none Vaginal bleeding: none Urinary symptoms: Dysuria and Frequency Exacerbating factors: none Relieving factors: none Associated symptoms: abdominal pain Treatment prior to arrival: none Patient : No Related Data Home Medications Medication Instructions Recorded Confirmed methylcellulose (with sugar) oral 1 tbsp PO BID 01/25/20 04/15/20 powder (Citrucel (sucrose)) aspirin 81 mg tablet,delayed 81 mg PO DAILY 06/10/20 release (Adult Aspirin Regimen) clonazepam 2 mg tablet 2 mg PO DAILY 06/10/20 lisinopril 40 mg tablet 40 mg PO DAILY 06/10/20 simvastatin 20 mg tablet 20 mg PO DAILY 06/10/20 aripiprazole 2 mg tablet 2 mg PO DAILY 03/23/21 chlorthalidone 50 mg tablet 50 mg PO DAILY 03/23/21 fluoxetine 20 mg capsule 60 mg PO QAM 03/23/21 levothyroxine 75 mcg tablet 75 mcg PO DAILY 03/23/21 metformin 500 mg tablet,extended 1,000 mg PO BID 03/23/21 release 24 hr mirtazapine 45 mg tablet 45 mg PO BEDTIME 03/23/21 Previous Rx's Medication Instructions Recorded hydrocodone 5 mg-acetaminophen 325 1 tab PO Q6H PRN #12 tab 04/08/20 mg tablet magnesium oxide 400 mg PO DAILY 7 Days #7 cap 04/08/20 oxybutynin chloride 10 mg 10 mg PO DAILY #30 tab 04/15/20 tablet,extended release 24 hr acetaminophen 500 mg tablet 500 mg PO Q6H PRN #20 tab 05/28/20 (Tylenol Extra Strength) cyclobenzaprine 5 mg tablet 5 mg PO Q8H PRN 5 Days #14 tab 05/28/20 lidocaine 5 % topical patch 1 patch TOPICAL DAILY PRN #30 ea 05/28/20 (Lidoderm) MDD remove after 12 hours naproxen 500 mg tablet 500 mg PO BID PRN 10 Days #20 tab 05/28/20 meloxicam 7.5 mg tablet 7.5 mg PO DAILY 30 Days #30 tab 06/20/20 acetaminophen 500 mg tablet 500 mg PO Q6H PRN #20 tab 09/09/20 (Tylenol Extra Strength) acetaminophen 650 mg 650 mg PO Q8H PRN #20 tab 11/19/20 tablet,extended release docusate sodium 100 mg capsule 100 mg PO DAILY 30 Days #30 cap 11/25/20 (Colace) dicyclomine 20 mg tablet 20 mg PO TID 30 Days #90 tab 03/23/21 linaclotide 290 mcg capsule 290 mcg PO QAM 30 Days #30 cap 03/23/21 (Linzess) omeprazole 40 mg capsule,delayed 40 mg PO DAILY #30 cap 03/23/21 release simethicone 180 mg capsule (Gas 180 mg PO BID 30 Days #60 cap 03/23/21 Relief (simethicone)) ciprofloxacin HCl 500 mg tablet 500 mg PO BID 10 Days #20 tab 06/16/21 metronidazole 500 mg tablet 500 mg PO TID 10 Days #30 tab 06/16/21 Allergies Allergy/AdvReac Type Severity Reaction Status Date / Time No Known Allergies Allergy Unknown UNKNOWN Verified 06/16/21 17:48 [NO KNOWN ALLERGIES] Review of Systems Constitutional: Constitutional: Reports no additional constitutional complaints, Denies chills, Denies fever(s) and Denies night sweats Eyes: Eyes: Reports no additional eye complaints, Denies blurry vision, Denies change in vision, Denies diplopia, Denies eye discharge, Denies loss of vision and Denies eye pain ENT: Denies dizziness Cardiovascular: Cardiovascular: Reports no additional cardiovascular complaints, Denies chest pain, Denies lightheadedness, Denies Loss of Consciousness and Denies dyspnea Respiratory: Respiratory: Reports no additional respiratory complaints and Denies dyspnea Gastrointestinal: Gastrointestinal: Reports no additional gastrointestinal complaints, Reports abdominal pain, Denies melena, Denies hematochezia, Denies change in bowel habits and Denies change in stool character Genitourinary: Genitourinary: Denies hematuria, Denies urinary frequency, Reports dysuria, Denies urinary incontinence, Denies urinary hesitancy and Reports urinary urgency Musculoskeletal: Musculoskeletal: Reports no additional musculoskeletal complaints, Denies numbness and Denies tingling Neurologic: Denies dizziness, Denies loss of vision, Denies numbness and Denies tingling Psychiatric: Psychiatric: Reports no additional psychiatric complaints Endocrine: Endocrine: Reports no additional endocrine complaints Hematologic/Lymphatic: Hematologic/Lymphatic: Reports no additional hematologic/lymphatic complaints Allergic/Immunologic: Allergic/Immunologic: Reports no additional allergic/immunologic complaints FORMERLY [facility], 1928–1983 Past Medical History Attestation statement: The following information was validated with the patient. Source: old records reviewed Medical History Chronic idiopathic constipation Diabetes 1.5, managed as type 2 Dysuria GERD (gastroesophageal reflux disease) HTN (hypertension) Irritable bowel syndrome with constipation KIRSTIE (stress urinary incontinence, female) Urge incontinence Surgical History H/O tubal ligation H/O: hysterectomy History of esophagogastroduodenoscopy (EGD) Hx of section Hx of colonoscopy Family History Family History Father Family hx of prostate cancer Cancer Brother Cancer Mother HTN (hypertension) Maternal Aunt Skin cancer, Onset Age: 59 Social History Social History Household Members: None Alcohol intake: never Advance Directives: No Patient : No Current occupational status: disabled Physical Exam Vital Signs: Vital Signs: Last Vital Signs Temp 97.7 F 06/16/21 23:06 Pulse 62 06/16/21 23:06 Resp 18 06/16/21 23:06 BP 168/72 H 06/16/21 23:06 Pulse Ox 96 06/16/21 23:06 BMI result Body Mass Index 30.9 Const: General: cooperative, no acute distress, alert and awake Nutritional Appearance: well nourished Orientation/consciousness: patient oriented x3 Limitations: no limitations HENMT: Head: Yes normal to inspection and Yes atraumatic Ears: hearing grossly normal bilaterally and external ears normal General nose exam: Normal external nose present, no nasal discharge noted and no epistaxis Face and sinus: Yes normal facial exam, No abrasion and No laceration Mouth: Normal oral and palatal mucosa present, no drooling and no muffled voice Eyes: General: appearance normal, both eyes and all related structures Periorbital: periorbital findings normal Eyelids: Yes eyelids normal Conjunctivae: conjunctivae normal Pupils: Equal, round and reactive pupils present EOM: EOMs intact bilaterally Neck: Neck: Yes normal visual inspection, Yes full ROM and Yes no lymphadenopathy Chest: Chest palpation & inspection: normal inspection of the chest Resp: Effort & Inspection: normal respiratory effort and able to speak in complete sentences Auscultation: clear to auscultation bilaterally Cardio: Rate: regular rate Rhythm: regular rhythm GI: Inspection: Yes normal to inspection Palpation (GI): Soft to palpation, not firm, Tenderness to palpation present (GI) in the LLQ and in the RLQ, no guarding and not rigid Neuro: General: patient oriented x3 and moves all extremities Cranial nerves: Yes Equal, round and reactive pupils present Cognition (Neuro): normal cognition Motor exam (neuro): 5/5 motor strength present throughout Sensory Exam: Normal double simultaneous stimulation for sensation Coordination: [id number] test normal Extrem: General: Yes normal to inspection, Yes full ROM and Yes capillary refill normal Psych: Appearance: grossly normal Mental Status: mental status grossly normal Affect: normal affect Attitude: cooperative Thought process: Normal thought process present Thought content: Normal thought content present Insight: Good insight present (Psych) MDM - Female Genitourinary MDM Narrative Medical decision making narrative: Patient is a 66 year old female presenting to the emergency department today with low abdominal pain. Patient's physical exam showed tenderness to palpation of the lower abdomen but was otherwise unremarkable. Patient's blood work showed a slightly elevated WBC count but was otherwise unremarkable. Patient's urine showed no acute process. Patient's EKG was unremarkable. Patient's abdominal CT showed a possible acute diverticulitis that the radiologist recommends is correlated with a colonoscopy. I explained my physical exam findings as well as all test results to the patient. I answered all questions asked by the patient. Patient received IV toradol which she stated helped her abdominal pain significantly. I stressed the importance of the patient taking her medication as prescribed. I stressed the importance of the patient following up with her primary care provider and a GI specialist. I stressed the importance of the patient returning to the emergency department immediately if her symptoms were to worsen or if she were to develop any dizziness, shortness of breath, difficulty breathing, chest pain, blurry vision, loss of vision, nausea, vomiting, abdominal pain, fever, chills, back pain, or any other complaints. Patient verbalized agreement and understanding with this treatment plan and discharge. Differential Diagnosis Differential diagnosis: Likely urinary tract infection (abdominal pain, diverticulitis) Medical Records Attestation: I reviewed the patient's medical records. Lab Data Attestation: I reviewed the patient's lab results. Result diagrams: 06/16/21 20:26 06/16/21 20:26 Labs: Lab Results 06/16/21 06/16/21 06/16/21 Range/Units 17:54 20:26 20:26 WBC 11.6 H (4.8-10.8) X10*3/uL RBC 3.96 L (4.20-5.50) X10*6/uL Hgb 11.1 L (12.0-16.0) g/dl Hct 36.1 L (37.0-47.0) % MCV 91.2 (80.0-98.0) fL MCH 28.0 (27.0-33.0) pg MCHC 30.7 L (31.0-35.0) g/dl RDW 13.8 (11.0-16.0) % Plt Count 212 (160-400) X10*3/uL MPV 11.6 (9.4-12.3) fL Immature Gran % (Auto) 0.5 H (0.0-0.4) % Neut % (Auto) 58.7 (45-73) % Lymph % (Auto) 31.5 (20-40) % [place]uming % (Auto) 7.4 (2-11) % Eos % (Auto) 1.6 (0-4) % Baso % (Auto) 0.3 (0-2) % Lymph # (Auto) 3.6 (1.2-4.9) X10*3/uL Cuming # (Auto) 0.9 (0.1-1.2) X10*3/uL Eos # (Auto) 0.2 (0.0-0.4) X10*3/uL Baso # (Auto) 0.0 (0.0-0.2) X10*3/uL Abs Immat Gran (auto) 0.06 H (0.00-0.03) X10*3/uL Absolute Neuts (auto) 6.8 (2.0-8.3) x10*3/uL Absolute Nucleated RBC 0.000 (0.0-0.012) X10*3/uL Nucleated RBC % (auto) 0.0 (0.0-0.2) /100WBC Sodium 141 (135-145) mmol/L Potassium 4.9 (3.3-5.1) mmol/L Chloride 105 (96-108) mmol/L Carbon Dioxide 25 (22-29) mmol/L Anion Gap 16 (12-20) BUN 22 H (9-16) mg/dL Creatinine 1.14 (0.5-1.4) mg/dL Estim Creat Clear Calc 43.5 Estimated GFR 48 Random Glucose 193 H (60-115) mg/dL Calcium 9.8 (8.4-10.2) mg/dL Total Bilirubin < 0.2 (0.0-1.0) mg/dL AST 18 (5-31) U/L ALT 18 (0-31) U/L Alkaline Phosphatase 85 (39-117) U/L Troponin I High Sens (<3.5-17.0) ng/L Total Protein 6.7 (6.5-8.0) g/dL Albumin 4.1 (3.5-5.0) g/dL Lipase 23 (8-78) U/L Urine Color YELLOW Urine Appearance CLEAR Urine pH 5.5 (5.0-8.0) Ur Specific [place] 1.025 (1.005-1.025) Urine Protein NEG (NEG-TRACE) MG/DL Urine Glucose (UA) NEG (NEG) MG/DL Urine Ketones NEG (NEG) MG/DL Urine Blood NEG (NEG) Urine Nitrite NEG (NEG) Ur Leukocyte Esterase NEG (NEG) 06/16/21 Range/Units 20:26 WBC (4.8-10.8) X10*3/uL RBC (4.20-5.50) X10*6/uL Hgb (12.0-16.0) g/dl Hct (37.0-47.0) % MCV (80.0-98.0) fL MCH (27.0-33.0) pg MCHC (31.0-35.0) g/dl RDW (11.0-16.0) % Plt Count (160-400) X10*3/uL MPV (9.4-12.3) fL Immature Gran % (Auto) (0.0-0.4) % Neut % (Auto) (45-73) % Lymph % (Auto) (20-40) % [place]uming % (Auto) (2-11) % Eos % (Auto) (0-4) % Baso % (Auto) (0-2) % Lymph # (Auto) (1.2-4.9) X10*3/uL [place] # (Auto) (0.1-1.2) X10*3/uL Eos # (Auto) (0.0-0.4) X10*3/uL Baso # (Auto) (0.0-0.2) X10*3/uL Abs Immat Gran (auto) (0.00-0.03) X10*3/uL Absolute Neuts (auto) (2.0-8.3) x10*3/uL Absolute Nucleated RBC (0.0-0.012) X10*3/uL Nucleated RBC % (auto) (0.0-0.2) /100WBC Sodium (135-145) mmol/L Potassium (3.3-5.1) mmol/L Chloride (96-108) mmol/L Carbon Dioxide (22-29) mmol/L Anion Gap (12-20) BUN (9-16) mg/dL Creatinine (0.5-1.4) mg/dL Estim Creat Clear Calc Estimated GFR Random Glucose (60-115) mg/dL Calcium (8.4-10.2) mg/dL Total Bilirubin (0.0-1.0) mg/dL AST (5-31) U/L ALT (0-31) U/L Alkaline Phosphatase (39-117) U/L Troponin I High Sens < 3.5 (<3.5-17.0) ng/L Total Protein (6.5-8.0) g/dL Albumin (3.5-5.0) g/dL Lipase (8-78) U/L Urine Color Urine Appearance Urine pH (5.0-8.0) Ur Specific [place] (1.005-1.025) Urine Protein (NEG-TRACE) MG/DL Urine Glucose (UA) (NEG) MG/DL Urine Ketones (NEG) MG/DL Urine Blood (NEG) Urine Nitrite (NEG) Ur Leukocyte Esterase (NEG) Imaging Data CT scan - abdomen: Attestation: I personally reviewed and interpreted this imaging study as follows: Radiologist's impression: EXAMINATION: CT ABDOMEN AND PELVIS WITH CONTRAST? CLINICAL INFORMATION: Abdominal pain.? COMPARISON: Abdominal ultrasound dated from 08/06/2020. Pelvic ultrasound dated from 04/28/2021. CT abdomen/pelvis dated from 04/08/2020.? TECHNIQUE: Multidetector volumetric images were obtained from the superior aspect of the liver through the pubic symphysis following administration 85 mL of Omnipaque 350 intravenous contrast. Sagittal and coronal reformatted images were obtained on the technologist's workstation.? Oral contrast: No This CT examination was performed using dose optimization techniques as appropriate, variously including the following: *Automated exposure control *Adjustment of mA and/or kV according to patient size (this includes techniques or standardized protocols for targeted exams where dose is matched to indication/reason for exam; i.e. extremities or head) *Use of iterative reconstruction technique DLP: 689 mGy-cm FINDINGS: LUNG BASES: Redemonstration of numerous sub-6 mm calcified pulmonary nodules. Subsegmental atelectasis. No focal consolidation or pleural effusion. Coronary calcifications.? LIVER, GALLBLADDER, AND BILIARY TREE: The liver is normal in size, shape, and attenuation. No focal hepatic lesion or biliary ductal dilatation is present. The gallbladder is unremarkable with no evidence of radiopaque gallstones, gallbladder wall thickening, or obvious pericholecystic inflammatory changes.? PANCREAS: Unremarkable.? SPLEEN: Unremarkable.? ADRENAL GLANDS: Unremarkable.? KIDNEYS AND URETERS: The kidneys are normal in size, shape, and attenuation. No hydronephrosis, hydroureter, or calculi seen. No perinephric stranding. ? BLADDER: Unremarkable.? GASTROINTESTINAL TRACT: The stomach and the small bowel are nondilated. Mild wall thickening and fat stranding in the sigmoid colon centered around several diverticuli. No drainable collection or free air. No bowel obstruction. Normal appendix.? ABDOMINAL WALL: Postsurgical changes from prior hernia repair with an anterior abdominal wall mesh. There is similar degree of very mild fat stranding anterior to this mesh in the abdominal wall which is nonspecific. No drainable collection.? LYMPH NODES: No lymphadenopathy by size criteria. VASCULAR: Extensive atherosclerotic disease. The abdominal aorta is of normal caliber. PELVIC VISCERA: Prior hysterectomy. Stable asymmetric soft tissue thickening in the left pelvis (4:485) since 2019 possibly representing the left ovary or in part postsurgical scarring. The right ovary is not definitely identified.? OSSEOUS STRUCTURES: No acute or aggressive appearing osseous abnormalities. Mild thoracolumbar spondylosis.? CT/CT abdomen pelvis w con IMPRESSION: Findings suggestive of acute sigmoid diverticulitis. However, the degree of inflammatory changes is not significant and some of the wall thickening could likely be explained by muscular hypertrophy secondary to bouts of diverticulitis. ? Correlation with the colonoscopy is recommended after resolution of the acute symptoms to ensure the absence of underlying lesions. Dictated By: Katina Parry Signed By: Electronically signed by Katina?Sohan 06/16/21 2233 ECG Data Attestation: I personally reviewed and interpreted this ECG as follows: ECG interpretation date: 06/16/21 ECG interpretation time: 19:51 Prior ECG tracings: available for review Interpretation: Vent. Rate: 069 BPM ? ? Atrial Rate: 069 BPM P-R Int: 142 ms? QRS Dur: 076 ms QT Int: 392 ms ? ? ? P-R-T Axes: 031 046 060 degrees QTc Int: 420 ms ? Normal sinus rhythm Normal ECG When compared with ECG of 07-JUL-2018 05:41, No significant change was found Discharge Plan Discharge Clinical Impression: Diverticulitis Patient Disposition: Home, Self-Care Instructions: Diverticulitis (ED) Additional Instructions: Follow up with your primary care provider. Return to the emergency department immediately if your symptoms worsen or if you develop any dizziness, shortness of breath, difficulty breathing, chest pain, blurry vision, loss of vision, nausea, vomiting, abdominal pain, fever, chills, back pain, or any other complaints. Prescriptions: New metronidazole 500 mg tablet 500 mg PO TID 10 Days Qty: 30 0RF ciprofloxacin HCl 500 mg tablet 500 mg PO BID 10 Days Qty: 20 0RF No Action hydrocodone-acetaminophen 5-325 mg tablet 1 tab PO Q6H PRN (Reason: pain) Qty: 12 0RF magnesium oxide 400 mg magnesium capsule 400 mg PO DAILY 7 Days Qty: 7 0RF acetaminophen [Tylenol Extra Strength] 500 mg tablet 500 mg PO Q6H PRN (Reason: pain or fever) Qty: 20 0RF lidocaine [Lidoderm] 5 % adhesive patch,medicated 1 patch topical DAILY MDD remove after 12 hours PRN (Reason: pain) Qty: 30 0RF Rx Instructions: leave on most painful area for up to 12 hrs naproxen 500 mg tablet 500 mg PO BID PRN (Reason: pain) 10 Days Qty: 20 0RF cyclobenzaprine 5 mg tablet 5 mg PO Q8H PRN (Reason: pain (scale score 7-10)) 5 Days Qty: 14 0RF acetaminophen [Tylenol Extra Strength] 500 mg tablet 500 mg PO Q6H PRN (Reason: pain or fever) Qty: 20 0RF acetaminophen 650 mg tablet extended release 650 mg PO Q8H PRN (Reason: pain) Qty: 20 0RF oxybutynin chloride 10 mg tablet extended release 24hr 10 mg PO DAILY Qty: 30 6RF Citrucel (sucrose) Powder 1 tbsp PO BID 0RF docusate sodium [Colace] 100 mg capsule 100 mg PO DAILY 30 Days Qty: 30 6RF clonazepam 2 mg tablet 2 mg PO DAILY 0RF simvastatin 20 mg tablet 20 mg PO DAILY 0RF lisinopril 40 mg tablet 40 mg PO DAILY 0RF aspirin [Adult Aspirin Regimen] 81 mg tablet,delayed release (DR/EC) 81 mg PO DAILY 0RF meloxicam 7.5 mg tablet 7.5 mg PO DAILY 30 Days Qty: 30 0RF levothyroxine 75 mcg tablet 75 mcg PO DAILY 0RF chlorthalidone 50 mg tablet 50 mg PO DAILY 0RF aripiprazole 2 mg tablet 2 mg PO DAILY 0RF fluoxetine 20 mg capsule 60 mg PO QAM 0RF mirtazapine 45 mg tablet 45 mg PO BEDTIME 0RF metformin 500 mg tablet extended release 24 hr 1,000 mg PO BID 0RF dicyclomine 20 mg tablet 20 mg PO TID 30 Days Qty: 90 6RF Linzess 290 mcg capsule 290 mcg PO QAM 30 Days Qty: 30 6RF omeprazole 40 mg capsule,delayed release(DR/EC) 40 mg PO DAILY Qty: 30 6RF simethicone [Gas Relief (simethicone)] 180 mg capsule 180 mg PO BID 30 Days Qty: 60 6RF Referrals: Franck Jean MD [Physician] - 2 days Kathryn Jarquin MD [Primary Care Provider] - 2 days Interventions: ED Discharge Assessment Last Done: 06/16/21 23:49 Discharge Date/Time: 06/16/21 23:53 Print Language: Brazilian
[2021-06-16] MEDS: Ketorolac Tromethamine 15 MG/ML VIAL IVPUSH (20:33)
[2021-06-16 20:39] VITALS: BP 185/87; PULSE 62; RESP 17; O2SAT 98
[2021-06-16 20:53] LABS: MANUAL DIFF FLAG NO
[2021-06-16 20:54] LABS: Basophils Percent Auto 0.3 % (0-2); Eosinophils Absolute Auto 0.2 X10*3/uL (0.0-0.4); Eosinophils Percent Auto 1.6 % (0-4); Hematocrit 36.1 % (37.0-47.0); Hemoglobin 11.1 g/dl (12.0-16.0); Imm Gran Abs Auto 0.06 X10*3/uL (0.00-0.03); Imm Gran Pct Auto 0.5 % (0.0-0.4); Lymphocytes Absolute Auto 3.6 X10*3/uL (1.2-4.9); Lymphocytes Percent Auto 31.5 % (20-40); Mean Corpuscular HGB Conc 30.7 g/dl (31.0-35.0); Mean Corpuscular Volume 91.2 fL (80.0-98.0); Mean Platelet Volume 11.6 fL (9.4-12.3); Monocytes Absolute Auto 0.9 X10*3/uL (0.1-1.2); Monocytes Percent Auto 7.4 % (2-11); Neutrophils Absolute Auto 6.8 x10*3/uL (2.0-8.3); Neutrophils Percent Auto 58.7 % (45-73); Platelet Count 212 X10*3/uL (160-400); Red Blood Count 3.96 X10*6/uL (4.20-5.50); Red Cell Distribution Width 13.8 % (11.0-16.0); White Blood Count 11.6 X10*3/uL (4.8-10.8)
[2021-06-16 21:11] LABS: Alanine Aminotransferase 18 U/L (0-31); Albumin Level 4.1 g/dL (3.5-5.0); Alkaline Phosphatase 85 U/L (39-117); Anion Gap 16 (12-20); Aspartate Amino Transferase 18 U/L (5-31); Bilirubin Total < 0.2 mg/dL (0.0-1.0); Blood Urea Nitrogen 22 mg/dL (9-16); Calcium 9.8 mg/dL (8.4-10.2); Carbon Dioxide 25 mmol/L (22-29); Chloride 105 mmol/L (96-108); Creatinine Clr Calc Pharmacy 43.5; Estimated Glomerular Filt Rate 48; Glucose Random 193 mg/dL (60-115); Lipase 23 U/L (8-78); Potassium 4.9 mmol/L (3.3-5.1); Sodium 141 mmol/L (135-145); Total Protein 6.7 g/dL (6.5-8.0)
[2021-06-16 21:16] LABS: Troponin-I High Sensitivity < 3.5 ng/L (<3.5-17.0)
[2021-06-16] MEDS: iohexoL 350 MG/ML 100 ML INFUS..BTL IV (22:05)
[2021-06-16 23:06] VITALS: BP 168/72; PULSE 62; RESP 18; TEMP 36.5; O2SAT 96
== END 2021-06-16 23:53 | disposition home or self-care (01) ==
PROVIDERS: Physician Assistant Medical; Emergency Provider Emergency Medicine; PCP Family Medicine
DX: K57.32 Diverticulitis of large intestine without perforation or abscess without bleeding (principal); R10.30 Lower abdominal pain, unspecified; E13.9 Other specified diabetes mellitus without complications; I10 Essential (primary) hypertension; Z87.440 Personal history of urinary (tract) infections
CPT/HCPCS: 36415; 74177; 80053; 81003; 83690; 84484; 85025; 93005; 96374; 99284; J1885; Q9967

== ENCOUNTER 2021-07-10 16:13 | Emergency (ER) | payer MEDICARE, MEDICAID, SELFPAY ==
--- NOTE | ~2021-07-10 | CT_ITS ---
EXAMINATION: CT ABDOMEN AND PELVIS WITHOUT CONTRAST CLINICAL INFORMATION: Lower abdominal pain, rule out diverticulitis. COMPARISON: 06/16/2021 CT scan of the abdomen and pelvis. TECHNIQUE: Multidetector volumetric imaging was performed from the superior aspect of the liver through the pubic symphysis. Sagittal and coronal reformatted images were obtained on the technologist's workstation. This CT examination was performed using dose optimization techniques as appropriate, variously including the following: *Automated exposure control *Adjustment of mA and/or kV according to patient size (this includes techniques or standardized protocols for targeted exams where dose is matched to indication/reason for exam; i.e. extremities or head) *Use of iterative reconstruction technique DLP: 616 mGy-cm FINDINGS: LUNG BASES: Mild dependent opacities are again seen in the lower lobes bilaterally, left greater than right. Multiple small calcified and noncalcified nodules are again seen without significant change. There are no pleural or pericardial effusions. LIVER, GALLBLADDER, AND BILIARY TREE: Unremarkable. PANCREAS: Unremarkable. SPLEEN: Unremarkable. ADRENAL GLANDS: Unremarkable. KIDNEYS AND URETERS: The kidneys are normal in size, shape, and attenuation. No hydronephrosis, hydroureter, or calculi seen. No perinephric stranding. BLADDER: Unremarkable. GASTROINTESTINAL TRACT: The stomach is unremarkable. There is a small diverticulum off of the superior margin of the third duodenal segment without significant change. The stomach and appendix are unremarkable. Mild to moderate diverticulosis is seen throughout the colon, most pronounced in the sigmoid colon. Mild infiltrative changes are seen superior to the mid one third of the sigmoid colon. No evidence for perforation or abscess formation. ABDOMINAL WALL: Status post umbilical ventral mesh repair without overt abnormality. LYMPH NODES: No lymphadenopathy. VASCULAR: Unremarkable. PELVIC VISCERA: Unremarkable. OSSEOUS STRUCTURES: Mild lumbar levoscoliosis is seen with multilevel degenerative changes. No suspicious abnormality. CT/CT abdomen pelvis wo con IMPRESSION: 1. Mild to moderate diverticulosis, most pronounced in the sigmoid colon. Mild infiltrative changes surrounding the sigmoid colon represent interval increase in the previous study and mild acute diverticulitis cannot be excluded. No evidence for perforation or abscess formation. 2. Incidental findings detailed above without significant change. Fleischner guidelines were followed.
[2021-07-10 16:36] VITALS: BP 152/85; PULSE 72; RESP 17; TEMP 36.8; O2SAT 98; BMI 26.2
[2021-07-10 17:03] LABS: MANUAL DIFF FLAG NO
[2021-07-10 17:06] LABS: Basophils Percent Auto 0.3 % (0-2); Eosinophils Absolute Auto 0.2 X10*3/uL (0.0-0.4); Eosinophils Percent Auto 1.7 % (0-4); Hematocrit 40.3 % (37.0-47.0); Hemoglobin 12.8 g/dl (12.0-16.0); Imm Gran Abs Auto 0.04 X10*3/uL (0.00-0.03); Imm Gran Pct Auto 0.4 % (0.0-0.4); Lymphocytes Absolute Auto 2.9 X10*3/uL (1.2-4.9); Mean Corpuscular HGB Conc 31.8 g/dl (31.0-35.0); Mean Corpuscular Hemoglobin 28.1 pg (27.0-33.0); Mean Corpuscular Volume 88.4 fL (80.0-98.0); Mean Platelet Volume 11.1 fL (9.4-12.3); Monocytes Absolute Auto 0.6 X10*3/uL (0.1-1.2); Monocytes Percent Auto 6.2 % (2-11); Neutrophils Absolute Auto 5.3 x10*3/uL (2.0-8.3); Neutrophils Percent Auto 59.4 % (45-73); Platelet Count 235 X10*3/uL (160-400); Red Blood Count 4.56 X10*6/uL (4.20-5.50); Red Cell Distribution Width 14.1 % (11.0-16.0); White Blood Count 8.9 X10*3/uL (4.8-10.8)
[2021-07-10 17:19] LABS: Appearance Urine HAZY; Color Urine YELLOW; Glucose Urine UA NEG (NEG); Leukocyte Esterase Urine NEG (NEG); Nitrite Urine NEG (NEG); PH 5.5 (5.0-8.0); Specific Gravity - Urine 1.025 (1.005-1.025); Urine Blood NEG (NEG); Urine Ketones NEG (NEG); Urine Protein TRACE MG/DL (NEG-TRACE)
[2021-07-10 17:22] LABS: Alanine Aminotransferase 18 U/L (0-31); Albumin Level 4.5 g/dL (3.5-5.0); Alkaline Phosphatase 124 U/L (39-117); Anion Gap 15 (12-20); Aspartate Amino Transferase 20 U/L (5-31); Bilirubin Total 0.2 mg/dL (0.0-1.0); Blood Urea Nitrogen 23 mg/dL (9-16); Calcium 10.5 mg/dL (8.4-10.2); Carbon Dioxide 27 mmol/L (22-29); Chloride 103 mmol/L (96-108); Creatinine Clr Calc Pharmacy 49.6; Estimated Glomerular Filt Rate 49; Glucose Random 157 mg/dL (60-115); Potassium 4.6 mmol/L (3.3-5.1); Sodium 140 mmol/L (135-145); Total Protein 7.2 g/dL (6.5-8.0)
[2021-07-10 21:03] VITALS: BP 154/73; PULSE 70; RESP 16; TEMP 36.8; O2SAT 97
--- NOTE | 2021-07-10 21:17 | ED.ABDPAIN ---
HPI - Abdominal Pain General Chief Complaint: Abdominal Pain Stated Complaint: abd pain Time Seen by Provider: 07/10/21 21:13 Source: patient and hand rounder Mode of arrival: ambulatory Limitations: no limitations History of Present Illness HPI narrative: 66-year-old female came in for evaluation of abdominal pain. Pain started about 2 months ago, described as constant pain, mostly localized to the lower abdomen, patient also feels pressure in her rectum, pain is constant moderate 7/10, no diarrhea, no constipation, no fever, no chills, no nausea, no vomiting, no loss of weight. Patient was evaluated in the emergency department for similar pain 3 weeks ago and patient was discharged on antibiotic with no improvement of her pain. Patient declined any dysuria or frequency. Related Data Home Medications Medication Instructions Recorded Confirmed methylcellulose (with sugar) oral 1 tbsp PO BID 01/25/20 04/15/20 powder (Citrucel (sucrose)) aspirin 81 mg tablet,delayed 81 mg PO DAILY 06/10/20 release (Adult Aspirin Regimen) clonazepam 2 mg tablet 2 mg PO DAILY 06/10/20 lisinopril 40 mg tablet 40 mg PO DAILY 06/10/20 simvastatin 20 mg tablet 20 mg PO DAILY 06/10/20 aripiprazole 2 mg tablet 2 mg PO DAILY 03/23/21 chlorthalidone 50 mg tablet 50 mg PO DAILY 03/23/21 fluoxetine 20 mg capsule 60 mg PO QAM 03/23/21 levothyroxine 75 mcg tablet 75 mcg PO DAILY 03/23/21 metformin 500 mg tablet,extended 1,000 mg PO BID 03/23/21 release 24 hr mirtazapine 45 mg tablet 45 mg PO BEDTIME 03/23/21 Previous Rx's Medication Instructions Recorded hydrocodone 5 mg-acetaminophen 325 1 tab PO Q6H PRN #12 tab 04/08/20 mg tablet magnesium oxide 400 mg PO DAILY 7 Days #7 cap 04/08/20 oxybutynin chloride 10 mg 10 mg PO DAILY #30 tab 04/15/20 tablet,extended release 24 hr acetaminophen 500 mg tablet 500 mg PO Q6H PRN #20 tab 05/28/20 (Tylenol Extra Strength) cyclobenzaprine 5 mg tablet 5 mg PO Q8H PRN 5 Days #14 tab 05/28/20 lidocaine 5 % topical patch 1 patch TOPICAL DAILY PRN #30 ea 05/28/20 (Lidoderm) MDD remove after 12 hours naproxen 500 mg tablet 500 mg PO BID PRN 10 Days #20 tab 05/28/20 meloxicam 7.5 mg tablet 7.5 mg PO DAILY 30 Days #30 tab 06/20/20 acetaminophen 500 mg tablet 500 mg PO Q6H PRN #20 tab 09/09/20 (Tylenol Extra Strength) acetaminophen 650 mg 650 mg PO Q8H PRN #20 tab 11/19/20 tablet,extended release docusate sodium 100 mg capsule 100 mg PO DAILY 30 Days #30 cap 11/25/20 (Colace) dicyclomine 20 mg tablet 20 mg PO TID 30 Days #90 tab 03/23/21 linaclotide 290 mcg capsule 290 mcg PO QAM 30 Days #30 cap 03/23/21 (Linzess) omeprazole 40 mg capsule,delayed 40 mg PO DAILY #30 cap 03/23/21 release simethicone 180 mg capsule (Gas 180 mg PO BID 30 Days #60 cap 03/23/21 Relief (simethicone)) ciprofloxacin HCl 500 mg tablet 500 mg PO BID 10 Days #20 tab 06/16/21 metronidazole 500 mg tablet 500 mg PO TID 10 Days #30 tab 06/16/21 ciprofloxacin HCl 500 mg tablet 500 mg PO Q12H #14 tab 07/10/21 (Cipro) metronidazole 500 mg tablet 250 mg PO BID #14 tab 07/10/21 Allergies Allergy/AdvReac Type Severity Reaction Status Date / Time No Known Allergies Allergy Unknown UNKNOWN Verified 06/16/21 17:48 [NO KNOWN ALLERGIES] Review of Systems Review of Systems All other systems are reviewed and are negative Constitutional: Reports as per HPI and Reports no additional constitutional complaints Eyes: Reports as per HPI and Reports no additional eye complaints Reports system reviewed and no additional complaints, except as documented Cardiovascular: Reports as per HPI and Reports no additional cardiovascular complaints Respiratory: Reports as per HPI and Reports no additional respiratory complaints Gastrointestinal: Reports as per HPI and Reports no additional gastrointestinal complaints Genitourinary: Reports no additional female genitourinary complaints Musculoskeletal: Reports no additional musculoskeletal complaints Skin/Breast: Reports system reviewed and no additional complaints, except as docu Psychiatric: Reports no additional psychiatric complaints Endocrine: Reports no additional endocrine complaints Hematologic/Lymphatic: Reports no additional hematologic/lymphatic complaints Allergic/Immunologic: Reports no additional allergic/immunologic complaints Reports system reviewed and no additional complaints, except as documented and Reports Abnormal speech present [facility] Past Medical History Medical History Chronic idiopathic constipation Diabetes 1.5, managed as type 2 Dysuria GERD (gastroesophageal reflux disease) HTN (hypertension) Irritable bowel syndrome with constipation KIRSTIE (stress urinary incontinence, female) Urge incontinence Surgical History H/O tubal ligation H/O: hysterectomy History of esophagogastroduodenoscopy (EGD) Hx of section Hx of colonoscopy Family History Family History Father Family hx of prostate cancer Cancer Brother Cancer Mother HTN (hypertension) Maternal Aunt Skin cancer, Onset Age: 59 Social History Social History Household Members: None Alcohol intake: never Advance Directives: No Advance Directives Information Provided: No Current occupational status: disabled Physical Exam ED Vital Signs: Vital Signs - 24 hr 07/10/21 16:36 07/10/21 21:03 07/10/21 22:00 Temperature 98.3 F 98.2 F 98.2 F Pulse Rate 72 70 69 Respiratory Rate 17 16 16 Blood Pressure 152/85 H 154/73 H 155/78 H Pulse Oximetry 98 97 BMI result Body Mass Index 26.2 vital signs have been reviewed as appeared to be correct. Blood pressure normal. Heart rate normal. Respiration rate normal. Temperature normal. Oxygen saturation normal. Appearance: Alert. Oriented X3. No acute distress. Head: Normal external exam. Normocephalic. Atraumatic. No Lopez signs noted. No raccoon eyes noted Eyes: PERRLA. EOMI. Conjunctiva and sclera normal. Eyelids normal. ENT: TM's Normal. Pharynx normal. Uvula midline. Moist mucous membranes. No trismus noted. No drooling noted. No muffled voice noted. Neck: Normal inspection. Neck supple. FROM. No adenopathy. Thyroid Normal. No meningeal signs. No neck mass noted. CVS: Normal heart rate and rhythm. Heart sound normal. No murmurs noted. Pulses normal throughout. Respiratory: No respiratory distress. Painless inspiration. Breath sounds normal. No wheezes/rales/rhonchi noted. Chest nontender. No accessory muscle usage noted or decreased air movement noted. Abdomen: Soft , mild suprapubic tenderness, no rebound tenderness, no guarding.. Bowel sounds normal in all 4 quadrants. No distention noted. No organomegaly noted. No visible injury noted. Back: No CVA tenderness. Full range of motion noted. Skin: Skin warm and dry. Normal skin color. Normal skin turgor. No rashes/lesions/lacerations noted. Extremities: No lower extremity edema. Extremities exhibit normal range of motion. Extremities nontender. Neuro: Oriented X 3. Cranial nerve exam: II-XII are grossly intact No motor deficit. No sensory deficit. Reflexes normal. Course Course Course Narrative: Assessment and plan. 66-year-old female came in with abdominal pain for 2 months, CTA showing evidence of noncomplicated acute diverticulitis. patient scheduled to have colonoscopy in 2 weeks. Will start the patient on another course of Cipro and Flagyl and follow-up with GI. MDM - Abdominal Pain Medical Records Attestation: I reviewed the patient's medical records. Lab Data Attestation: I reviewed the patient's lab results. Result diagrams: 07/10/21 16:59 07/10/21 16:59 Labs: Lab Results 07/10/21 07/10/21 07/10/21 Range/Units 16:59 16:59 17:07 WBC 8.9 (4.8-10.8) X10*3/uL RBC 4.56 (4.20-5.50) X10*6/uL Hgb 12.8 (12.0-16.0) g/dl Hct 40.3 (37.0-47.0) % MCV 88.4 (80.0-98.0) fL MCH 28.1 (27.0-33.0) pg MCHC 31.8 (31.0-35.0) g/dl RDW 14.1 (11.0-16.0) % Plt Count 235 (160-400) X10*3/uL MPV 11.1 (9.4-12.3) fL Immature Gran % (Auto) 0.4 (0.0-0.4) % Neut % (Auto) 59.4 (45-73) % Lymph % (Auto) 32.0 (20-40) % [place] % (Auto) 6.2 (2-11) % Eos % (Auto) 1.7 (0-4) % Baso % (Auto) 0.3 (0-2) % Lymph # (Auto) 2.9 (1.2-4.9) X10*3/uL [place] # (Auto) 0.6 (0.1-1.2) X10*3/uL Eos # (Auto) 0.2 (0.0-0.4) X10*3/uL Baso # (Auto) 0.0 (0.0-0.2) X10*3/uL Abs Immat Gran (auto) 0.04 H (0.00-0.03) X10*3/uL Absolute Neuts (auto) 5.3 (2.0-8.3) x10*3/uL Absolute Nucleated RBC 0.000 (0.0-0.012) X10*3/uL Nucleated RBC % (auto) 0.0 (0.0-0.2) /100WBC Sodium 140 (135-145) mmol/L Potassium 4.6 (3.3-5.1) mmol/L Chloride 103 (96-108) mmol/L Carbon Dioxide 27 (22-29) mmol/L Anion Gap 15 (12-20) BUN 23 H (9-16) mg/dL Creatinine 1.12 (0.5-1.4) mg/dL Estim Creat Clear Calc 49.6 Estimated GFR 49 Random Glucose 157 H (60-115) mg/dL Calcium 10.5 H D (8.4-10.2) mg/dL Total Bilirubin 0.2 (0.0-1.0) mg/dL AST 20 (5-31) U/L ALT 18 (0-31) U/L Alkaline Phosphatase 124 H D (39-117) U/L Total Protein 7.2 (6.5-8.0) g/dL Albumin 4.5 (3.5-5.0) g/dL Urine Color YELLOW Urine Appearance HAZY Urine pH 5.5 (5.0-8.0) Ur Specific [place] 1.025 (1.005-1.025) Urine Protein TRACE (NEG-TRACE) MG/DL Urine Glucose (UA) NEG (NEG) MG/DL Urine Ketones NEG (NEG) MG/DL Urine Blood NEG (NEG) Urine Nitrite NEG (NEG) Ur Leukocyte Esterase NEG (NEG) Imaging Data CT abdomen and pelvis: Attestation: I personally reviewed and interpreted this imaging study as follows: Radiologist's impression: 1. Mild to moderate diverticulosis, most pronounced in the sigmoid colon. Mild infiltrative changes surrounding the sigmoid colon represent interval increase in the previous study and mild acute diverticulitis cannot be excluded. No evidence for perforation or abscess formation. 2. Incidental findings detailed above without significant change. Discharge Plan Discharge Clinical Impression: Diverticulitis Patient Disposition: Home, Self-Care Instructions: Diverticulitis (ED) Prescriptions: New metronidazole 500 mg tablet 250 mg PO BID Qty: 14 0RF ciprofloxacin HCl [Cipro] 500 mg tablet 500 mg PO Q12H Qty: 14 0RF No Action hydrocodone-acetaminophen 5-325 mg tablet 1 tab PO Q6H PRN (Reason: pain) Qty: 12 0RF magnesium oxide 400 mg magnesium capsule 400 mg PO DAILY 7 Days Qty: 7 0RF acetaminophen [Tylenol Extra Strength] 500 mg tablet 500 mg PO Q6H PRN (Reason: pain or fever) Qty: 20 0RF lidocaine [Lidoderm] 5 % adhesive patch,medicated 1 patch topical DAILY MDD remove after 12 hours PRN (Reason: pain) Qty: 30 0RF Rx Instructions: leave on most painful area for up to 12 hrs naproxen 500 mg tablet 500 mg PO BID PRN (Reason: pain) 10 Days Qty: 20 0RF cyclobenzaprine 5 mg tablet 5 mg PO Q8H PRN (Reason: pain (scale score 7-10)) 5 Days Qty: 14 0RF acetaminophen [Tylenol Extra Strength] 500 mg tablet 500 mg PO Q6H PRN (Reason: pain or fever) Qty: 20 0RF acetaminophen 650 mg tablet extended release 650 mg PO Q8H PRN (Reason: pain) Qty: 20 0RF metronidazole 500 mg tablet 500 mg PO TID 10 Days Qty: 30 0RF ciprofloxacin HCl 500 mg tablet 500 mg PO BID 10 Days Qty: 20 0RF oxybutynin chloride 10 mg tablet extended release 24hr 10 mg PO DAILY Qty: 30 6RF Citrucel (sucrose) Powder 1 tbsp PO BID 0RF docusate sodium [Colace] 100 mg capsule 100 mg PO DAILY 30 Days Qty: 30 6RF clonazepam 2 mg tablet 2 mg PO DAILY 0RF simvastatin 20 mg tablet 20 mg PO DAILY 0RF lisinopril 40 mg tablet 40 mg PO DAILY 0RF aspirin [Adult Aspirin Regimen] 81 mg tablet,delayed release (DR/EC) 81 mg PO DAILY 0RF meloxicam 7.5 mg tablet 7.5 mg PO DAILY 30 Days Qty: 30 0RF levothyroxine 75 mcg tablet 75 mcg PO DAILY 0RF chlorthalidone 50 mg tablet 50 mg PO DAILY 0RF aripiprazole 2 mg tablet 2 mg PO DAILY 0RF fluoxetine 20 mg capsule 60 mg PO QAM 0RF mirtazapine 45 mg tablet 45 mg PO BEDTIME 0RF metformin 500 mg tablet extended release 24 hr 1,000 mg PO BID 0RF dicyclomine 20 mg tablet 20 mg PO TID 30 Days Qty: 90 6RF Linzess 290 mcg capsule 290 mcg PO QAM 30 Days Qty: 30 6RF omeprazole 40 mg capsule,delayed release(DR/EC) 40 mg PO DAILY Qty: 30 6RF simethicone [Gas Relief (simethicone)] 180 mg capsule 180 mg PO BID 30 Days Qty: 60 6RF Referrals: Franck Jean MD [Physician] - Kathryn Jarquin MD [Primary Care Provider] -
[2021-07-10 22:00] VITALS: BP 155/78; PULSE 69; RESP 16; TEMP 36.8
== END 2021-07-10 23:21 | disposition home or self-care (01) ==
PROVIDERS: Emergency Provider Emergency Medicine; PCP Family Medicine
DX: K57.32 Diverticulitis of large intestine without perforation or abscess without bleeding (principal); Z79.899 Other long term (current) drug therapy; Z79.82 Long term (current) use of aspirin
CPT/HCPCS: 36415; 74176; 80053; 81003; 85025; 99283; 99284

== ENCOUNTER → 2021-07-28 08:45 | Outpatient (BNVA) | payer MEDICARE, MEDICAID, SELFPAY | PROVIDERS: PCP Family Medicine; Referring Provider Family Medicine; Visit Provider Nurse Practitioner | DX: K59.04 Chronic idiopathic constipation (principal); K21.9 Gastro-esophageal reflux disease without esophagitis; K75.81 Nonalcoholic steatohepatitis (NASH); R10.2 Pelvic and perineal pain; M53.3 Sacrococcygeal disorders, not elsewhere classified; B37.9 Candidiasis, unspecified | CPT/HCPCS: 99212 ==

== ENCOUNTER → 2021-08-11 08:21 | Outpatient (BNVA) | payer MEDICARE, MEDICAID, SELFPAY | PROVIDERS: PCP Family Medicine; Referring Provider Family Medicine; Visit Provider Nurse Practitioner | DX: M53.3 Sacrococcygeal disorders, not elsewhere classified (principal); R14.0 Abdominal distension (gaseous); R10.2 Pelvic and perineal pain; K75.81 Nonalcoholic steatohepatitis (NASH); K59.04 Chronic idiopathic constipation; K21.9 Gastro-esophageal reflux disease without esophagitis | CPT/HCPCS: 99212 ==

== ENCOUNTER → 2021-09-10 10:09 | Outpatient (BNVA) | payer OTHER, SELFPAY | PROVIDERS: PCP Family Medicine; Visit Provider Nurse Practitioner Family | DX: R10.2 Pelvic and perineal pain (principal); R10.9 Unspecified abdominal pain | CPT/HCPCS: 99202 ==

== ENCOUNTER 2021-10-16 06:09 | Outpatient (REF) | payer MEDICARE, MEDICAID, SELFPAY | END 2021-10-16 06:10 | disposition home or self-care (01) | LOC: HO.RADIR 06:09 | PROVIDERS: Visit Provider Internal Medicine | DX: R10.2 Pelvic and perineal pain (principal) | CPT/HCPCS: 64488; J1040 ==

== ENCOUNTER 2022-06-24 15:01 | Outpatient (REF) | payer OTHER, MEDICAID, SELFPAY ==
--- NOTE | ~2022-06-24 | US_ITS ---
EXAMINATION: US RETROPERITONEAL COMPLETE (RENAL) CLINICAL INFORMATION: Stage III chronic kidney disease. COMPARISON: CT abdomen and pelvis without contrast 07/10/2021. Ultrasound abdomen limited 08/06/2020 and 12/18/2019. MRI abdomen without contrast 07/08/2018. TECHNIQUE: Real-time imaging of the kidneys and bladder. FINDINGS: RIGHT KIDNEY: 8.4 x 4.4 x 3.6 cm (SAG x AP x TRV). The kidney is normal in size, contour and echogenicity. Renal cortical thickness is normal. No calculi or focal parenchymal lesions. No hydronephrosis. LEFT KIDNEY: 9.8 x 4.9 x 3.9 cm (SAG x AP x TRV). The kidney is normal in size, contour and echogenicity. Renal cortical thickness is normal. No renal calculi or hydronephrosis. At the upper pole, a 7 mm benign, simple cyst is seen, for which no imaging follow-up is recommended. BLADDER: Partially distended. Bilateral ureteral jets are demonstrated. Prevoid bladder volume is 115 mL. Postvoid bladder volume is 113 mL. The patient was unable to void completely. US/US retroperitoneal comp IMPRESSION: 1. A benign, simple left renal cyst is seen, for which no imaging follow-up is recommended. 2. There is an increased postvoid residual volume.
== END 2022-06-24 15:02 | disposition home or self-care (01) ==
LOC: HO.US 15:01
PROVIDERS: PCP Family Medicine; Visit Provider Family Medicine
DX: R10.31 Right lower quadrant pain (principal)
CPT/HCPCS: 76770

== ENCOUNTER 2022-07-26 10:31 | Emergency (ER) | payer OTHER, SELFPAY ==
--- NOTE | ~2022-07-26 | CT_ITS ---
EXAMINATION: CT ABDOMEN AND PELVIS WITHOUT CONTRAST CLINICAL INFORMATION: Right lower quadrant pain COMPARISON: Previous CT of the abdomen and pelvis most recent July 2021 TECHNIQUE: Multidetector volumetric imaging was performed from the superior aspect of the liver through the pubic symphysis. Sagittal and coronal reformatted images were obtained on the technologist's workstation. This CT examination was performed using dose optimization techniques as appropriate, variously including the following: *Automated exposure control *Adjustment of mA and/or kV according to patient size (this includes techniques or standardized protocols for targeted exams where dose is matched to indication/reason for exam; i.e. extremities or head) *Use of iterative reconstruction technique DLP: 632 mGy-cm FINDINGS: LUNG BASES: Small calcified right lower lobe nodules similar to previous exam. LIVER, GALLBLADDER, AND BILIARY TREE: The liver is normal in size, shape, and attenuation. No focal hepatic lesion or biliary ductal dilatation is present. The gallbladder is upper normal in size. No gallstones. PANCREAS: Unremarkable. SPLEEN: Unremarkable. ADRENAL GLANDS: Unremarkable. KIDNEYS AND URETERS: The kidneys are normal in size, shape, and attenuation. No hydronephrosis, hydroureter, or calculi seen. No perinephric stranding. BLADDER: Small amount of air in the bladder. GASTROINTESTINAL TRACT: Severe diverticulosis of the colon. There is wall thickening of the sigmoid colon and it is difficult to exclude mild diverticulitis. The small and large bowel are otherwise unremarkable. The appendix is unremarkable. ABDOMINAL WALL: Previous ventral hernia repair with mesh LYMPH NODES: Normal. VASCULAR: Unremarkable. PELVIC VISCERA: Unremarkable. OSSEOUS STRUCTURES: Unremarkable. CT/CT abdomen pelvis wo IV con IMPRESSION: Severe diverticulosis of the colon and question mild diverticulitis of the sigmoid colon. Small amount of air in the bladder. Clinical correlation recommended i.e. has the patient recently catheterized. Differential would include infection and fistula. Upper normal-size gallbladder. No gallstones seen by CT scan. Fleischner guidelines were followed.
[2022-07-26 10:53] VITALS: BP 107/68; PULSE 83; RESP 18; TEMP 36.5; O2SAT 96; BMI 27.4
[2022-07-26 11:26] LABS: MANUAL DIFF FLAG NO
[2022-07-26 11:39] LABS: Basophils Percent Auto 0.4 % (0-2); Eosinophils Absolute Auto 0.1 X10*3/uL (0.0-0.4); Eosinophils Percent Auto 1.4 % (0-4); Hematocrit 38.2 % (37.0-47.0); Hemoglobin 12.2 g/dl (12.0-16.0); Imm Gran Abs Auto 0.04 X10*3/uL (0.00-0.03); Imm Gran Pct Auto 0.4 % (0.0-0.4); Lymphocytes Absolute Auto 2.9 X10*3/uL (1.2-4.9); Lymphocytes Percent Auto 29.8 % (20-40); Mean Corpuscular HGB Conc 31.9 g/dl (31.0-35.0); Mean Platelet Volume 10.6 fL (9.4-12.3); Monocytes Absolute Auto 0.6 X10*3/uL (0.1-1.2); Monocytes Percent Auto 6.2 % (2-11); Neutrophils Absolute Auto 6.1 x10*3/uL (2.0-8.3); Neutrophils Percent Auto 61.8 % (45-73); Platelet Count 208 X10*3/uL (160-400); White Blood Count 9.8 X10*3/uL (4.8-10.8)
[2022-07-26 11:51] LABS: Alanine Aminotransferase 11 U/L (0-31); Albumin Level 4.5 g/dL (3.5-5.0); Alkaline Phosphatase 91 U/L (39-117); Anion Gap 14 (12-20); Aspartate Amino Transferase 14 U/L (5-31); Bilirubin Direct < 0.2 mg/dL (0.0-0.5); Bilirubin Total 0.2 mg/dL (0.0-1.0); Blood Urea Nitrogen 35 mg/dL (9-16); Calcium 9.6 mg/dL (8.4-10.2); Carbon Dioxide 22 mmol/L (22-29); Chloride 111 mmol/L (96-108); Creatinine Clr Calc Pharmacy 31.9; Estimated Glomerular Filt Rate 33; Glucose Random 168 mg/dL (60-115); Potassium 4.3 mmol/L (3.3-5.1); Sodium 143 mmol/L (135-145); Total Protein 7.3 g/dL (6.5-8.0)
[2022-07-26 11:54] LABS: Lipase 10 U/L (8-78)
[2022-07-26 12:52] LABS: Magnesium 1.5 mg/dL (1.6-2.6)
--- NOTE | 2022-07-26 16:49 | ED.ABDPAIN ---
HPI - Abdominal Pain General Chief Complaint: Abdominal Pain Stated Complaint: abd pain Time Seen by Provider: 07/26/22 16:16 History of Present Illness HPI narrative: Patient is a 67-year-old female with a history of chronic abdominal pain. Status post years ago. History of having a simple cyst in the left kidney. Patient denies any fever chills. The pain is very similar to previous. Positive history of constipation been followed by GI in the past. History of diverticulitis. Patient stated the pain is the same as prior. There was no coughing or congestion no chest pain or diaphoresis. No nausea no vomiting. But is positive BM that is brown. Patient from home. Related Data Home Medications Medication Instructions Recorded Confirmed methylcellulose (with sugar) oral 1 tbsp PO BID 01/25/20 04/15/20 powder (Citrucel (sucrose) oral powder) aspirin 81 mg tablet,delayed 81 mg PO DAILY 06/10/20 release (Adult Aspirin Regimen) clonazepam 2 mg tablet 2 mg PO DAILY 06/10/20 lisinopril 40 mg tablet 40 mg PO DAILY 06/10/20 simvastatin 20 mg tablet 20 mg PO DAILY 06/10/20 aripiprazole 2 mg tablet 2 mg PO DAILY 03/23/21 chlorthalidone 50 mg tablet 50 mg PO DAILY 03/23/21 fluoxetine 20 mg capsule 60 mg PO QAM 03/23/21 levothyroxine 75 mcg tablet 75 mcg PO DAILY 03/23/21 metformin 500 mg tablet,extended 1,000 mg PO BID 03/23/21 release 24 hr mirtazapine 45 mg tablet 45 mg PO BEDTIME 03/23/21 fluconazole 150 mg tablet 150 mg PO ONCE 08/11/21 fluticasone propionate 220 0 mcg inhalation 08/11/21 mcg/actuation HFA aerosol inhaler (Flovent HFA) Previous Rx's Medication Instructions Recorded hydrocodone 5 mg-acetaminophen 325 1 tab PO Q6H PRN pain #12 tabs 04/08/20 mg tablet magnesium oxide 400 mg PO DAILY 7 days #7 caps 04/08/20 oxybutynin chloride 10 mg 10 mg PO DAILY #30 tabs 04/15/20 tablet,extended release 24 hr acetaminophen 500 mg tablet 500 mg PO Q6H PRN pain or fever 05/28/20 (Tylenol Extra Strength) #20 tabs cyclobenzaprine 5 mg tablet 5 mg PO Q8H PRN pain (scale score 05/28/20 7-10) 5 days #14 tabs lidocaine 5 % topical patch 1 patch topical DAILY PRN pain #30 05/28/20 (Lidoderm) ea naproxen 500 mg tablet 500 mg PO BID PRN pain 10 days #20 05/28/20 tabs meloxicam 7.5 mg tablet 7.5 mg PO DAILY 1 month #30 tabs 06/20/20 acetaminophen 500 mg tablet 500 mg PO Q6H PRN pain or fever 09/09/20 (Tylenol Extra Strength) #20 tabs acetaminophen 650 mg 650 mg PO Q8H PRN pain #20 tabs 11/19/20 tablet,extended release docusate sodium 100 mg capsule 100 mg PO DAILY 30 days #30 caps 11/25/20 (Colace) dicyclomine 20 mg tablet 20 mg PO TID 30 days #90 tabs 03/23/21 linaclotide 290 mcg capsule 290 mcg PO QAM 30 days #30 caps 03/23/21 (Linzess) omeprazole 40 mg capsule,delayed 40 mg PO DAILY #30 caps 03/23/21 release simethicone 180 mg capsule (Gas 180 mg PO BID 30 days #60 caps 03/23/21 Relief (simethicone)) ciprofloxacin HCl 500 mg tablet 500 mg PO BID 10 days #20 tabs 06/16/21 metronidazole 500 mg tablet 500 mg PO TID 10 days #30 tabs 06/16/21 ciprofloxacin HCl 500 mg tablet 500 mg PO Q12H #14 tabs 07/10/21 (Cipro) metronidazole 500 mg tablet 250 mg PO BID #14 tabs 07/10/21 prednisone 20 mg tablet 20 mg PO DAILY 7 days #7 tabs 07/28/21 amoxicillin 875 mg-potassium 1 tab PO BID #20 tabs 07/26/22 clavulanate 125 mg tablet Allergies Allergy/AdvReac Type Severity Reaction Status Date / Time No Known Allergies Allergy Unknown UNKNOWN Verified 07/26/22 10:56 [NO KNOWN ALLERGIES] Review of Systems Review of Systems Positive abdominal pain Yes all other systems are reviewed and are negative PMFSH Past Medical History Attestation statement: The following information was validated with the patient. Medical History Chronic idiopathic constipation Chronic kidney disease Diabetes 1.5, managed as type 2 Dysuria GERD (gastroesophageal reflux disease) HTN (hypertension) Irritable bowel syndrome with constipation KIRSTIE (stress urinary incontinence, female) Urge incontinence Surgical History H/O tubal ligation H/O: hysterectomy History of esophagogastroduodenoscopy (EGD) Hx of section Hx of colonoscopy Family History Family History Father Family hx of prostate cancer Cancer Brother Cancer Mother HTN (hypertension) Maternal Aunt Skin cancer, Onset Age: 59 Social History Social History Household Members: None Alcohol intake: never Advance Directives: No Advance Directives Information Provided: Yes Current occupational status: disabled Physical Exam ED Vital Signs: Vital Signs - 24 hr 07/26/22 10:53 07/26/22 17:38 Temperature 97.7 F 98.2 F Pulse Rate 83 60 Respiratory Rate 18 14 Blood Pressure 107/68 146/79 H Pulse Oximetry 96 96 Oxygen Delivery Method Room Air Room Air BMI result Body Mass Index 27.4 Appearance: Alert. Oriented X3. No acute distress. Eyes: Pupils equal, round and reactive to light. ENT: Pharynx normal. Neck: Normal inspection. Neck supple. No lymph nodes noted. No crepitus CVS: Normal heart rate and rhythm. Pulses normal. Normal S1 and S2 Respiratory: No respiratory distress. Breath sounds normal. No Wheezing. No rales Abdomen: Soft and nontender. No rigidity. No distention. good BS x4 Skin: Skin warm and dry. Normal skin color. Normal skin turgor. Extremities: No lower extremity edema. Neurovascular intact to all extremities. No Lacerations. No Rash Neuro: Oriented X 3. No motor deficit. No sensory deficit. Moving all extermities. No slurred speech Medical Decision Making Medical Decision Making MDM Narrative: Patient presented today with having abdominal pain for the last 4 years. Very similar to previous bouts. Had a recent ultrasound done it shows a renal cyst on the left side. Had previous colonoscopy and endoscopy done in the past. Patient's white count was 10. H&H baseline at 12 and 38.2 there is no evidence for anemia. Patient showed mild dehydration with BUN and creatinine of 35 and 1.57. Given boluses of IV fluids. Patient well-appearing. CT scan of the abdomen pelvis done. There is no evidence of obstruction, abscess, perforation. There is evidence for question mild diverticulitis. Considering history of diverticulitis in the past will start patient on Augmentin. Close follow-up on an outpatient basis. Repeat abdominal exam is soft nontender. No abscess was noted. No perforation noted. Patient's LFTs are normal lipase is normal. No evidence of biliary disease. No evidence of biliary disease on CT scan. Differential Diagnosis Diverticulitis, kidney stone, obstruction, abscess, perforation, Admission/Observation Consideration of admission/observation: Escalation of care including admission/observation considered Lab Data MDM Lab Attestation statement: I reviewed the patient's lab results. 07/26/22 11:17 07/26/22 11:17 Labs: Lab Results 07/26/22 07/26/22 Range/Units 11:17 11:17 WBC 9.8 (4.8-10.8) X10*3/uL RBC 4.20 (4.20-5.50) X10*6/uL Hgb 12.2 (12.0-16.0) g/dl Hct 38.2 (37.0-47.0) % MCV 91.0 (80.0-98.0) fL MCH 29.0 (27.0-33.0) pg MCHC 31.9 (31.0-35.0) g/dl RDW 14.0 (11.0-16.0) % Plt Count 208 (160-400) X10*3/uL MPV 10.6 (9.4-12.3) fL Immature Gran % (Auto) 0.4 (0.0-0.4) % Neut % (Auto) 61.8 (45-73) % Lymph % (Auto) 29.8 (20-40) % [place] % (Auto) 6.2 (2-11) % Eos % (Auto) 1.4 (0-4) % Baso % (Auto) 0.4 (0-2) % Lymph # (Auto) 2.9 (1.2-4.9) X10*3/uL [place] # (Auto) 0.6 (0.1-1.2) X10*3/uL Eos # (Auto) 0.1 (0.0-0.4) X10*3/uL Baso # (Auto) 0.0 (0.0-0.2) X10*3/uL Abs Immat Gran (auto) 0.04 H (0.00-0.03) X10*3/uL Absolute Neuts (auto) 6.1 (2.0-8.3) x10*3/uL Absolute Nucleated RBC 0.000 (0.0-0.012) X10*3/uL Nucleated RBC % (auto) 0.0 (0.0-0.2) /100WBC Sodium 143 (135-145) mmol/L Potassium 4.3 (3.3-5.1) mmol/L Chloride 111 H (96-108) mmol/L Carbon Dioxide 22 (22-29) mmol/L Anion Gap 14 (12-20) BUN 35 H (9-16) mg/dL Creatinine 1.57 H (0.5-1.4) mg/dL Estim Creat Clear Calc 31.9 Estimated GFR 33 Random Glucose 168 H (60-115) mg/dL Calcium 9.6 D (8.4-10.2) mg/dL Magnesium 1.5 L (1.6-2.6) mg/dL Total Bilirubin 0.2 (0.0-1.0) mg/dL Direct Bilirubin < 0.2 (0.0-0.5) mg/dL AST 14 (5-31) U/L ALT 11 (0-31) U/L Alkaline Phosphatase 91 (39-117) U/L Total Protein 7.3 (6.5-8.0) g/dL Albumin 4.5 (3.5-5.0) g/dL Lipase 10 (8-78) U/L Independent Interpretation I performed an independent interpretation of an: CT Scan Interpretation: I reviewed the CT scan Radiology Impression Discussion of test interpretation with radiology: I have reviewed the radiologist's reading. Radiologist Impression: Positive diverticulitis noted on CT Independent Historian Clinical information obtained from an independent historian. History obtained from or confirmed by: Spouse External Record Review External record reviewed: Office record and Prior outpatient labs Chronic Conditions Patient?s care impacted by: Hypertension Abdominal pain Medications Administered Discontinued Medications Generic Name Dose Route Start Last Admin Trade Name Freq PRN Reason Stop Dose Admin Hydromorphone HCl 0.5 mg 07/26/22 17:22 07/26/22 17:46 Hydromorphone Hcl 0.5 Mg/0.5 Ml Syringe IVPUSH 07/26/22 17:23 0.5 mg ONCE ONE Administration Protocol Sodium Chloride 1,000 mls @ 999 mls/hr 07/26/22 17:00 07/26/22 17:43 Ns IV 07/26/22 18:00 999 mls/hr .Q1H1M [facility] Administration Discharge Plan Discharge Clinical Impression: Diverticulitis Patient Disposition: Home, Self-Care Instructions: Diverticulitis (ED) Prescriptions: New amoxicillin-pot clavulanate 875-125 mg tablet 1 tab PO BID Qty: 20 0RF No Action hydrocodone-acetaminophen 5-325 mg tablet 1 tab PO Q6H PRN (Reason: pain) Qty: 12 0RF magnesium oxide 400 mg magnesium capsule 400 mg PO DAILY 7 Days Qty: 7 0RF acetaminophen [Tylenol Extra Strength] 500 mg tablet 500 mg PO Q6H PRN (Reason: pain or fever) Qty: 20 0RF lidocaine [Lidoderm] 5 % adhesive patch,medicated 1 patch topical DAILY MDD remove after 12 hours PRN (Reason: pain) Qty: 30 0RF Rx Instructions: leave on most painful area for up to 12 hrs naproxen 500 mg tablet 500 mg PO BID PRN (Reason: pain) 10 Days Qty: 20 0RF cyclobenzaprine 5 mg tablet 5 mg PO Q8H PRN (Reason: pain (scale score 7-10)) 5 Days Qty: 14 0RF acetaminophen [Tylenol Extra Strength] 500 mg tablet 500 mg PO Q6H PRN (Reason: pain or fever) Qty: 20 0RF acetaminophen 650 mg tablet extended release 650 mg PO Q8H PRN (Reason: pain) Qty: 20 0RF metronidazole 500 mg tablet 500 mg PO TID 10 Days Qty: 30 0RF ciprofloxacin HCl 500 mg tablet 500 mg PO BID 10 Days Qty: 20 0RF metronidazole 500 mg tablet 250 mg PO BID Qty: 14 0RF ciprofloxacin HCl [Cipro] 500 mg tablet 500 mg PO Q12H Qty: 14 0RF oxybutynin chloride 10 mg tablet extended release 24hr 10 mg PO DAILY Qty: 30 6RF Citrucel (sucrose) Powder 1 tbsp PO BID docusate sodium [Colace] 100 mg capsule 100 mg PO DAILY 30 Days Qty: 30 6RF clonazepam 2 mg tablet 2 mg PO DAILY simvastatin 20 mg tablet 20 mg PO DAILY lisinopril 40 mg tablet 40 mg PO DAILY aspirin [Adult Aspirin Regimen] 81 mg tablet,delayed release (DR/EC) 81 mg PO DAILY meloxicam 7.5 mg tablet 7.5 mg PO DAILY 30 Days Qty: 30 0RF levothyroxine 75 mcg tablet 75 mcg PO DAILY chlorthalidone 50 mg tablet 50 mg PO DAILY aripiprazole 2 mg tablet 2 mg PO DAILY fluoxetine 20 mg capsule 60 mg PO QAM mirtazapine 45 mg tablet 45 mg PO BEDTIME metformin 500 mg tablet extended release 24 hr 1,000 mg PO BID dicyclomine 20 mg tablet 20 mg PO TID 30 Days Qty: 90 6RF Linzess 290 mcg capsule 290 mcg PO QAM 30 Days Qty: 30 6RF omeprazole 40 mg capsule,delayed release(DR/EC) 40 mg PO DAILY Qty: 30 6RF simethicone [Gas Relief (simethicone)] 180 mg capsule 180 mg PO BID 30 Days Qty: 60 6RF prednisone 20 mg tablet 20 mg PO DAILY 7 Days Qty: 7 0RF Flovent HFA 220 mcg/actuation HFA aerosol inhaler 0 mcg inhalation fluconazole 150 mg tablet 150 mg PO ONCE Referrals: Kathryn Jarquin MD [Primary Care Provider] - 07/28/22 Print Language: Serbian
[2022-07-26 17:38] VITALS: BP 146/79; PULSE 60; RESP 14; TEMP 36.8; O2SAT 96
[2022-07-26] MEDS: 0.9 % Sodium Chloride 1,000 ML 999 ML IV (17:43)
[2022-07-26] MEDS: HYDROmorphone HCl 0.5 MG/0.5 ML SYRINGE IVPUSH (17:46)
[2022-07-26] MEDS: Amoxicillin/Potassium Clav 875 MG TABLET PO (19:29)
== END 2022-07-26 19:36 | disposition home or self-care (01) ==
PROVIDERS: Physician Assistant; Emergency Provider Emergency Medicine Emergency Medical Services; PCP Family Medicine
DX: K57.92 Diverticulitis of intestine, part unspecified, without perforation or abscess without bleeding (principal); E13.22 Other specified diabetes mellitus with diabetic chronic kidney disease; I12.9 Hypertensive chronic kidney disease with stage 1 through stage 4 chronic kidney disease, or unspecified chronic kidney disease; N18.9 Chronic kidney disease, unspecified; Z79.02 Long term (current) use of antithrombotics/antiplatelets; Z79.82 Long term (current) use of aspirin; Z79.899 Other long term (current) drug therapy
CPT/HCPCS: 36415; 74176; 80048; 80076; 83690; 83735; 85025; 96374; 99284; J1170

== ENCOUNTER → 2022-08-04 09:54 | Outpatient (BNVA) | payer OTHER, SELFPAY | PROVIDERS: PCP Family Medicine; Referring Provider Family Medicine; Visit Provider Nurse Practitioner | DX: K57.40 Diverticulitis of both small and large intestine with perforation and abscess without bleeding (principal); K57.92 Diverticulitis of intestine, part unspecified, without perforation or abscess without bleeding; K59.04 Chronic idiopathic constipation; K21.9 Gastro-esophageal reflux disease without esophagitis; R10.2 Pelvic and perineal pain; R14.0 Abdominal distension (gaseous); M53.3 Sacrococcygeal disorders, not elsewhere classified; D12.6 Benign neoplasm of colon, unspecified | CPT/HCPCS: 99212 ==

== ENCOUNTER → 2022-08-06 08:25 | Outpatient (BNVA) | payer OTHER, SELFPAY | PROVIDERS: PCP Family Medicine; Referring Provider Nurse Practitioner; Visit Provider Surgery | DX: K57.40 Diverticulitis of both small and large intestine with perforation and abscess without bleeding (principal); K21.9 Gastro-esophageal reflux disease without esophagitis; K59.04 Chronic idiopathic constipation | CPT/HCPCS: 99202 ==

== ENCOUNTER → 2022-08-09 09:19 | Outpatient (BNVA) | payer OTHER, SELFPAY | PROVIDERS: PCP Family Medicine; Visit Provider Obstetrics & Gynecology ==

== ENCOUNTER 2022-09-10 13:57 | Outpatient (REF) | payer OTHER, SELFPAY ==
--- NOTE | ~2022-09-10 | MM_ITS ---
EXAMINATION: MM SCREENING DIGITAL BREAST TOMOSYNTHESIS, BILATERAL CLINICAL INFORMATION: Screening. Asymptomatic. The lifetime risk of breast cancer based on the Tyrer-Cuzick Model is 4%. COMPARISON: Mammography: 01/22/2020, 01/25/2018, 09/02/2016 TECHNIQUE: Digital breast tomosynthesis is performed in both the craniocaudal and mediolateral oblique views along with computer-aided detection (CAD). Synthesized 2D images are generated from the tomosynthesis. FINDINGS: The breasts are heterogeneously dense, which may obscure small masses (ACR BI-RADS breast composition Category c). Breast tissue composition is less dense than on prior studies and borders on average fibroglandular. There is no developing density or architectural abnormality. Intramammary node again seen mid outer right breast. There are scattered bilateral vascular, round, and some ductal secretory calcifications. There are no significant masses, abnormal calcifications, or other abnormalities. Axilla and skin contours are unremarkable. No significant changes. MM/MM tomosynthesis screening BI IMPRESSION: No mammographic evidence of malignancy. ASSESSMENT: BI-RADS 2: Benign RECOMMENDATION: Routine annual mammography screening. This patient's information was entered into a reminder system with a target due date for their next mammogram.
--- NOTE | ~2022-09-10 | MM_ITS ---
EXAMINATION: BONE DENSITOMETRY CLINICAL INDICATION: Menopause. COMPARISON: None (current study represents initial baseline exam). TECHNIQUE: Using a [employer] DXA System (software version: 13.1) manufactured by [employer], dual-energy x-ray absorptiometry was performed of the lumbar spine and left hip. The images are of good technical quality. Summary results are attached. FINDINGS: AP SPINE L1-L4: BMD 0.990 g/cm2, Z-score -0.1, T-score -1.6, osteopenia. LEFT FEMUR, NECK: BMD 1.011 g/cm2, Z-score 1.3, T-score -0.2, normal. LEFT FEMUR, TOTAL: BMD 1.081 g/cm2, Z-score 1.8, T-score 0.6, normal. IDENTIFIED RISK FACTORS: Menopause, renal, hysterectomy, secondary osteoporosis. HISTORY OF FRACTURE: None listed. MEDICATIONS: Vitamin D. MM/XR DEXA axial skeleton IMPRESSION: 1. DIAGNOSIS: Osteopenia based on the lowest T-score value of -1.6 in the lumbar spine applying World Health Organization criteria. 2. 10-YEAR FRACTURE RISK PREDICTION, FRAX: Major osteoporotic fracture (clinical spine, forearm, hip or shoulder) 3.8%. Hip fracture 0.2%. 3. Treatment Recommendations: NOF guidelines recommend consideration for treatment in postmenopausal women and men age 50 and older presenting with the following: -A hip or vertebral (clinical or morphometric) fracture. -T-score less than or equal to -2.5 at the femoral neck or spine after appropriate evaluation to exclude secondary causes. -Low bone mass at the hip or spine and a 10-year fracture probability by FRAX of greater than or equal to 3% for hip fracture or greater than or equal to 20% for major osteoporotic fracture based on the [place] adapted WHO algorithm. 4. Other Recommendations: All treatment decisions require clinical judgment and consideration of individual patient factors, including patient preferences, comorbidities, previous drug use, risk factors not captured in the FRAX model (e.g. frailty, falls, vitamin D deficiency, increased bone turnover, interval significant decline in bone density) and possible under or overestimation of fracture risk by FRAX. Additional medical evaluation for secondary cause of low bone mineral density may be appropriate. FUTURE SCAN RECOMMENDATION: People with diagnosed cases of osteoporosis or at high risk for fracture should have regular bone mineral density tests. For patients eligible for Medicare, routine testing is allowed once every 2 years. The testing frequency can be increased to one year for patients who have rapidly progressing disease, those who are receiving or discontinuing medical therapy to restore bone mass, or have additional risk factors.
== END 2022-09-10 13:58 | disposition home or self-care (01) ==
LOC: HO.MAMMO 13:57
PROVIDERS: PCP Family Medicine; Visit Provider Obstetrics & Gynecology
DX: Z12.31 Encounter for screening mammogram for malignant neoplasm of breast (principal); Z13.820 Encounter for screening for osteoporosis; Z78.0 Asymptomatic menopausal state
CPT/HCPCS: 77063; 77067; 77080

== ENCOUNTER 2022-09-23 12:34 | Emergency (ER) | payer OTHER, SELFPAY ==
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
--- NOTE | ~2022-09-23 | XR_ITS ---
EXAMINATION: XR KNEE, RIGHT CLINICAL INFORMATION: Knee pain COMPARISON: None available. TECHNIQUE: Four views of the right knee. FINDINGS: No joint effusion, fracture, dislocation or destructive process. There is mild medial joint space meniscal calcification. Posterior vascular calcifications are noted. XR/XR knee RT 4V IMPRESSION: Degenerative change with no acute findings.
[2022-09-23 12:37] VITALS: BP 139/79; PULSE 70; RESP 18; TEMP 36.7; O2SAT 98; BMI 27.4
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
[2022-09-23] MEDS: Acetaminophen 325 MG TABLET 975 MG PO (14:13)
[2022-09-23 15:04] VITALS: BP 128/66; PULSE 58; RESP 16; TEMP 36.7; O2SAT 96
== END 2022-09-23 17:02 | disposition home or self-care (01) ==
PROVIDERS: Emergency Provider Student in an Organized Health Care Education/Training Program; PCP Family Medicine
DX: Z04.1 Encounter for examination and observation following transport accident (principal); M25.561 Pain in right knee; M54.2 Cervicalgia
CPT/HCPCS: 70450; 72125; 73564; 99283; 99284

== ENCOUNTER 2022-11-23 09:22 | Outpatient (AMB) | payer OTHER, SELFPAY ==
--- NOTE | 2022-11-23 09:22 | MHC.OFFVIS ---
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 T score @ spine and femoral Neck respectively were=-1.6 /0.6 and 10 year FRAX risk = 3.8/0.2% for severe osteoporosis and fracture. [facility] Medical History Chronic idiopathic constipation Chronic kidney disease Diabetes 1.5, managed as type 2 Dysuria GERD (gastroesophageal reflux disease) HTN (hypertension) Irritable bowel syndrome with constipation KIRSTIE (stress urinary incontinence, female) Urge incontinence Surgical History H/O tubal ligation H/O: hysterectomy History of esophagogastroduodenoscopy (EGD) Hx of section Hx of colonoscopy Family History Father Family hx of prostate cancer Cancer Brother Cancer Mother HTN (hypertension) Maternal Aunt Skin cancer, Onset Age: 59 Social History Household Members: None Alcohol intake: never Current occupational status: disabled Female Reproductive History Menstrual Age of Menarche: 12 Review of Systems Const All systems reviewed & are unremarkable except as noted in HPI and below Reports as per HPI and Reports no additional complaints GI Reports no additional complaints Reports no additional complaints Assessment & Plan Assessment & Plan (1) Osteopenia: Code(s): M85.80 - Other specified disorders of bone density and structure, unspecified site Plan: Discussed with the patient the DEXA results and FRAX risk. FRAX risk and T score showed no evidence of osteoporosis. Discussed with the patient all the options for osteoporosis prevention including lifestyle modifications including Ca+D supplements 1200 mg po qd/800 MIU, Weight bearing exercises and proteine supplements. The patient verbalized understanding and agreed plan will repeat DEXA in 2 years. I spent a total of 20 minutes reviewing the chart, talking to the patient via phone and documenting in the medical record. Telehealth Telehealth Location of provider rendering services: practice address Location of patient: address on file Patient Identification confirmed using: Name, : Yes Telehealth method: voice only Patient verbally consented to treatment: Yes Patient verbally consented to billing insurance company: Yes Patient informed of any privacy concerns related to visit: Yes Coding Level of Care Code Tele Est Pt Level 1 (82679) Diagnoses Osteopenia M85.80
== END 2022-11-23 15:03 | disposition home or self-care (01) ==
LOC: HO.HWS 09:22
PROVIDERS: PCP Family Medicine; Visit Provider Obstetrics & Gynecology
DX: M85.80 Other specified disorders of bone density and structure, unspecified site (principal)
CPT/HCPCS: 99211

== ENCOUNTER → 2022-11-23 09:22 | Outpatient (BNVA) | payer OTHER, SELFPAY | PROVIDERS: PCP Family Medicine; Visit Provider Obstetrics & Gynecology ==

== ENCOUNTER 2022-12-12 10:19 | Emergency (ER) | payer OTHER, SELFPAY ==
--- NOTE | ~2022-12-12 | CT_ITS ---
EXAMINATION: CT ABDOMEN AND PELVIS WITHOUT CONTRAST CLINICAL INFORMATION: Right lower quadrant pain. COMPARISON: None available. TECHNIQUE: Multidetector volumetric imaging was performed from the superior aspect of the liver through the pubic symphysis. Sagittal and coronal reformatted images were obtained on the technologist's workstation. This CT examination was performed using dose optimization techniques as appropriate, variously including the following: *Automated exposure control *Adjustment of mA and/or kV according to patient size (this includes techniques or standardized protocols for targeted exams where dose is matched to indication/reason for exam; i.e. extremities or head) *Use of iterative reconstruction technique DLP: 636 mGy-cm FINDINGS: LUNG BASES: The visualized lung bases are unremarkable. There are moderate coronary artery atherosclerotic calcifications. There are calcifications of the aortic annulus. LIVER, GALLBLADDER, AND BILIARY TREE: The liver is normal in size, shape, and attenuation. No focal hepatic lesion or biliary ductal dilatation is present. The gallbladder is unremarkable with no evidence of radiopaque gallstones, gallbladder wall thickening, or obvious pericholecystic inflammatory changes. PANCREAS: Unremarkable. SPLEEN: Unremarkable. ADRENAL GLANDS: Unremarkable. There is a tiny calcifications in the left adrenal gland (4:201), possible sequela of remote hemorrhage. This is of no acute clinical significance. KIDNEYS AND URETERS: The kidneys are normal in size, shape, and attenuation. No hydronephrosis, hydroureter, or calculi seen. No perinephric stranding. BLADDER: Unremarkable. GASTROINTESTINAL TRACT: There is marked diverticulosis. There is fat stranding adjacent to the mid sigmoid colon (i.e. 3:64). There is a small amount of layering fluid in the posterior pelvis adjacent to the sigmoid colon. This crescentic, layering appearance favors free fluid rather than an organized abscess, although this possibility is not excluded with certainty. No obstruction or free intraperitoneal air is seen. The vermiform appendix appears normal. ABDOMINAL WALL: There has been a prior umbilical herniorrhaphy. LYMPH NODES: No sizable abdominopelvic lymphadenopathy is seen. There are aortoiliac atherosclerotic calcifications. VASCULAR: There is moderate aortoiliac atherosclerotic calcification. No abdominal aortic aneurysm or dissection is seen. PELVIC VISCERA: Surgically absent. No pelvic mass, free fluid or lymphadenopathy is seen. OSSEOUS STRUCTURES: Unremarkable. CT/CT abdomen pelvis wo IV con IMPRESSION: There is marked colonic diverticulosis. There is fat stranding adjacent to the sigmoid colon, and a crescentic low-attenuation fluid collection is seen in the dependent pelvis abutting the posterior margin of the mid sigmoid colon. The crescentic configuration of this fluid collection favors free fluid, rather than an organized abscess. Together, the findings suggest possible acute diverticulitis. Recommend clinical correlation, management on a clinical basis and follow-up imaging as clinically indicated. No obstruction or free intraperitoneal air is seen. Fleischner guidelines were followed.
--- NOTE | ~2022-12-12 | US_ITS ---
EXAMINATION: US PELVIS CLINICAL INFORMATION: Lower abdominal pain COMPARISON: CT scan from earlier today TECHNIQUE: Ultrasound of the pelvis is performed using both transabdominal and transvaginal transducers along with Doppler. Transvaginal imaging is performed due to inadequate visualization transabdominally. FINDINGS: The uterus and adnexa are both surgically absent as seen on today's CT scan. Trace amount of free fluid is seen in the dependent pelvis of uncertain significance. Bowel gas obscures visualization otherwise. US/US pelvic and transvaginal IMPRESSION: Uterus and adnexa are both surgically absent as seen on today's CT scan. Trace amount of free fluid in the dependent pelvis of uncertain significance.
[2022-12-12 10:24] VITALS: BP 122/69; PULSE 100; RESP 19; TEMP 36.6; O2SAT 97; BMI 42.7
[2022-12-12 13:41] LABS: MANUAL DIFF FLAG NO
[2022-12-12 13:42] LABS: Basophils Absolute Auto 0.1 X10*3/uL (0.0-0.2); Basophils Percent Auto 0.5 % (0-2); Eosinophils Absolute Auto 0.2 X10*3/uL (0.0-0.4); Eosinophils Percent Auto 1.5 % (0-4); Hemoglobin 12.3 g/dl (12.0-16.0); Imm Gran Abs Auto 0.04 X10*3/uL (0.00-0.03); Imm Gran Pct Auto 0.4 % (0.0-0.4); Lymphocytes Percent Auto 28.4 % (20-40); Mean Corpuscular HGB Conc 32.4 g/dl (31.0-35.0); Mean Corpuscular Hemoglobin 28.6 pg (27.0-33.0); Mean Corpuscular Volume 88.4 fL (80.0-98.0); Mean Platelet Volume 10.8 fL (9.4-12.3); Monocytes Absolute Auto 0.7 X10*3/uL (0.1-1.2); Monocytes Percent Auto 6.6 % (2-11); Neutrophils Absolute Auto 6.5 x10*3/uL (2.0-8.3); Neutrophils Percent Auto 62.6 % (45-73); Platelet Count 209 X10*3/uL (160-400); Red Cell Distribution Width 13.1 % (11.0-16.0); White Blood Count 10.4 X10*3/uL (4.8-10.8)
[2022-12-12 13:57] LABS: Anion Gap 14 (12-20); Blood Urea Nitrogen 28 mg/dL (9-16); Calcium 10.4 mg/dL (8.4-10.2); Carbon Dioxide 22 mmol/L (22-29); Chloride 107 mmol/L (96-108); Creatinine Clr Calc Pharmacy 29.7; Estimated Glomerular Filt Rate 42; Glucose Random 153 mg/dL (60-115); Potassium 4.9 mmol/L (3.3-5.1); Sodium 138 mmol/L (135-145)
[2022-12-12 13:58] LABS: Alanine Aminotransferase 8 U/L (0-31); Albumin Level 4.2 g/dL (3.5-5.0); Alkaline Phosphatase 97 U/L (39-117); Aspartate Amino Transferase 12 U/L (5-31); Bilirubin Direct 0.1 mg/dL (0.0-0.5); Bilirubin Total 0.3 mg/dL (0.0-1.0); Lipase 16 U/L (8-78); Total Protein 7.2 g/dL (6.5-8.0)
--- NOTE | 2022-12-12 15:17 | ED.ABDPAIN ---
HPI - Abdominal Pain General Chief Complaint: Abdominal Pain Stated Complaint: Lower abd pain Time Seen by Provider: 12/12/22 14:56 Source: patient Mode of arrival: ambulatory Limitations: no limitations History of Present Illness HPI narrative: 67-year-old female history of osteopenia, diverticulitis, nonalcoholic steatohepatitis, GERD, stress urinary incontinence presenting to the emergency department for evaluation of right lower quadrant abdominal pain, dysuria and decreased urinary flow. Patient reports all this started this morning. Suddenly. Patient tells me she thinks she might have a urinary tract infection. Also reporting some associated nausea. She denies fevers, chills, chest pain, shortness of breath, headache, vision changes, dizziness and weakness. Related Data Home Medications Medication Instructions Recorded Confirmed methylcellulose (with sugar) oral 1 tbsp PO BID 01/25/20 08/06/22 powder (Citrucel (sucrose) oral powder) aspirin 81 mg tablet,delayed 81 mg PO DAILY 06/10/20 08/06/22 release (Adult Aspirin Regimen) clonazepam 2 mg tablet 2 mg PO DAILY 06/10/20 08/06/22 lisinopril 40 mg tablet 40 mg PO DAILY 06/10/20 08/06/22 aripiprazole 2 mg tablet 2 mg PO DAILY 03/23/21 08/06/22 chlorthalidone 50 mg tablet 50 mg PO DAILY 03/23/21 08/06/22 fluoxetine 20 mg capsule 60 mg PO QAM 03/23/21 08/06/22 mirtazapine 45 mg tablet 45 mg PO BEDTIME 03/23/21 08/06/22 fluticasone propionate 220 0 mcg inhalation 08/11/21 08/06/22 mcg/actuation HFA aerosol inhaler (Flovent HFA) atorvastatin 40 mg tablet 40 mg PO BEDTIME 08/04/22 08/06/22 cholecalciferol (vitamin D3) 25 25 mcg PO QAM 08/04/22 08/06/22 mcg (1,000 unit) capsule (Vitamin D3) conjugated estrogens 0.625 mg/gram 0 mg vaginal 08/04/22 08/06/22 vaginal cream (Premarin) hydralazine 25 mg tablet 25 mg PO 08/04/22 08/06/22 levothyroxine 50 mcg tablet 50 mcg PO QAM 08/04/22 08/06/22 metformin 500 mg tablet 500 mg PO 08/04/22 08/06/22 prazosin 1 mg capsule 1 mg PO BEDTIME 08/04/22 08/06/22 quetiapine 150 mg tablet,extended 150 mg PO BEDTIME 08/04/22 08/06/22 release 24 hr quetiapine 50 mg tablet 50 mg PO BEDTIME 08/04/22 08/06/22 Previous Rx's Medication Instructions Recorded magnesium oxide 400 mg PO DAILY 7 days #7 caps 04/08/20 oxybutynin chloride 10 mg 10 mg PO DAILY #30 tabs 04/15/20 tablet,extended release 24 hr cyclobenzaprine 5 mg tablet 5 mg PO Q8H PRN pain (scale score 05/28/20 7-10) 5 days #14 tabs naproxen 500 mg tablet 500 mg PO BID PRN pain 10 days #20 05/28/20 tabs meloxicam 7.5 mg tablet 7.5 mg PO DAILY 1 month #30 tabs 06/20/20 acetaminophen 650 mg 650 mg PO Q8H PRN pain #20 tabs 11/19/20 tablet,extended release docusate sodium 100 mg capsule 100 mg PO DAILY 30 days #30 caps 11/25/20 (Colace) amoxicillin 875 mg-potassium 1 tab PO BID #20 tabs 07/26/22 clavulanate 125 mg tablet dicyclomine 20 mg tablet 20 mg PO TID 30 days #90 tabs 08/04/22 linaclotide 290 mcg capsule 290 mcg PO QAM 30 days #30 caps 08/04/22 (Linzess) metronidazole 500 mg tablet 500 mg PO TID 10 days #30 tabs 08/04/22 omeprazole 40 mg capsule,delayed 40 mg PO DAILY #30 caps 08/04/22 release simethicone 180 mg capsule (Gas 180 mg PO BID 30 days #60 caps 08/04/22 Relief (simethicone)) sulfamethoxazole 800 1 tab PO BID #10 tabs 08/04/22 mg-trimethoprim 160 mg tablet (Bactrim DS) Allergies Allergy/AdvReac Type Severity Reaction Status Date / Time No Known Allergies Allergy Unknown UNKNOWN Verified 12/12/22 10:24 [NO KNOWN ALLERGIES] Review of Systems Review of Systems Constitutional : No Weight loss, No Fever, No Chills, No Fatigue, No Malaise ENT/Mouth : No sore throat, No Rhinorrhea Eyes: No Eye Pain, No Swelling, No Redness Cardiovascular : No Chest Pain, No SOB, No Dyspnea on Exertion, No Orthopnea, No Edema, No Palpitations Respiratory : No Cough, No Sputum, No Wheezing Gastrointestinal : No Nausea, No Vomiting, No Diarrhea, No Constipation, + abdominal Pain, No Hematochezia, No Melena Genitourinary : + Dysuria, No Urinary Frequency, No Hematuria, + decreased urinary stream Musculoskeletal : No joint pain, No Myalgias, No Joint Swelling Skin : No Skin Lesions, No rash Neuro : No Weakness, No Numbness, No Dizziness, No Headache Psych : No Anxiety/Panic, No Depression All other systems reviewed and are negative Yes all other systems are reviewed and are negative [facility] Past Medical History Attestation statement: The following information was validated with the patient. Source: old records reviewed and nursing notes reviewed Medical History Chronic kidney disease Diabetes 1.5, managed as type 2 HTN (hypertension) KIRSTIE (stress urinary incontinence, female) Urge incontinence Dysuria Chronic idiopathic constipation GERD (gastroesophageal reflux disease) Irritable bowel syndrome with constipation Surgical History H/O tubal ligation Hx of section H/O: hysterectomy History of esophagogastroduodenoscopy (EGD) Hx of colonoscopy Family History Family History Father Family hx of prostate cancer Cancer Brother Cancer Mother HTN (hypertension) Maternal Aunt Skin cancer, Onset Age: 59 Social History Social History Household Members: None Alcohol intake: never Smoked in Last 30 Days: No Use of substances other than those prescribed or required for medical reasons: No Advance Directives: No Advance Directives Information Provided: Yes Current occupational status: disabled Physical Exam ED Vital Signs: Vital Signs - 24 hr 12/12/22 10:24 Temperature 98 F Pulse Rate 100 Respiratory Rate 19 Blood Pressure 122/69 Pulse Oximetry 97 Oxygen Delivery Method Room Air BMI result Body Mass Index 42.7 vss Appearance: Alert.? Oriented X3.? No acute distress.? Head: Normocephalic, atraumatic, no step-offs or deformities Eyes: Pupils equal, round and reactive to light.? CVS: Normal heart rate and rhythm.? Pulses normal.? Respiratory: No respiratory distress.? Breath sounds normal.? Abdomen: Soft and slight discomfort to right lower quadrant.? Skin: Skin warm and dry.? Normal skin color.? Normal skin turgor.? Extremities: No lower extremity edema.? No calf ttp. 5/5 strength to bilateral upper and lower extremities Neuro: Oriented X 3.? No motor deficit.? No sensory deficit. CN 2-12 intact Course Reevaluation(s) Reevaluation #1: CBC and CMP unremarkable. Urine in abdomen and pelvis CT pending. Sign out to night provider Mikey Time: 16:11 Medical Decision Making Medical Decision Making [facility] Narrative: 1500 67-year-old female presents with right lower quadrant abdominal pain, dysuria and decreased urinary flow since this morning concern she may have a UTI. Physical examination with right lower quadrant discomfort on palpation Concerns for possible obstructing uropathy versus kidney stone versus viral illness versus kidney stone versus UTI versus cystitis. Unlikely acute abdomen, mesenteric ischemia, torsion. Plan labs, urine, imaging Differential Diagnosis Differential Diagnoses: The differential diagnosis associated with the presentation includes Concerns for possible obstructing uropathy versus kidney stone versus viral illness versus kidney stone versus UTI versus cystitis. Unlikely acute abdomen, mesenteric ischemia, torsion. Admission/Observation Consideration of admission/observation: Escalation of care including admission/observation considered unlikely Lab Data 12/12/22 13:36 12/12/22 13:36 Labs: Lab Results 12/12/22 Range/Units 13:36 WBC 10.4 (4.8-10.8) X10*3/uL RBC 4.30 (4.20-5.50) X10*6/uL Hgb 12.3 (12.0-16.0) g/dl Hct 38.0 (37.0-47.0) % MCV 88.4 (80.0-98.0) fL MCH 28.6 (27.0-33.0) pg MCHC 32.4 (31.0-35.0) g/dl RDW 13.1 (11.0-16.0) % Plt Count 209 (160-400) X10*3/uL MPV 10.8 (9.4-12.3) fL Immature Gran % (Auto) 0.4 (0.0-0.4) % Neut % (Auto) 62.6 (45-73) % Lymph % (Auto) 28.4 (20-40) % Mccracken % (Auto) 6.6 (2-11) % Eos % (Auto) 1.5 (0-4) % Baso % (Auto) 0.5 (0-2) % Lymph # (Auto) 3.0 (1.2-4.9) X10*3/uL Mccracken # (Auto) 0.7 (0.1-1.2) X10*3/uL Eos # (Auto) 0.2 (0.0-0.4) X10*3/uL Baso # (Auto) 0.1 (0.0-0.2) X10*3/uL Abs Immat Gran (auto) 0.04 H (0.00-0.03) X10*3/uL Absolute Neuts (auto) 6.5 (2.0-8.3) x10*3/uL Absolute Nucleated RBC 0.000 (0.0-0.012) X10*3/uL Nucleated RBC % (auto) 0.0 (0.0-0.2) /100WBC Sodium 138 (135-145) mmol/L Potassium 4.9 (3.3-5.1) mmol/L Chloride 107 (96-108) mmol/L Carbon Dioxide 22 (22-29) mmol/L Anion Gap 14 (12-20) BUN 28 H (9-16) mg/dL Creatinine 1.28 (0.5-1.4) mg/dL Estim Creat Clear Calc 29.7 Estimated GFR 42 Random Glucose 153 H (60-115) mg/dL Calcium 10.4 H D (8.4-10.2) mg/dL Total Bilirubin 0.3 (0.0-1.0) mg/dL Direct Bilirubin 0.1 (0.0-0.5) mg/dL AST 12 (5-31) U/L ALT 8 (0-31) U/L Alkaline Phosphatase 97 (39-117) U/L Total Protein 7.2 (6.5-8.0) g/dL Albumin 4.2 (3.5-5.0) g/dL Lipase 16 (8-78) U/L Discharge Plan Discharge Clinical Impression: Abdominal pain, lower Patient Disposition: Still a Patient Instructions: Abdominal Pain (ED) Additional Instructions: Take your medications as prescribed. If you were prescribed antibiotics today, it is important that you take your medication to their entirety, do not skip any doses, do not finish them early. Follow-up with your primary care provider this week. Return to the emergency department with new or worsening symptoms. Such as fevers, chills, chest pain, shortness of breath, nausea, vomiting, dizziness, headache, vision changes, lethargy In case of emergency call 911 Prescriptions: No Action magnesium oxide 400 mg magnesium capsule 400 mg PO DAILY 7 Days Qty: 7 0RF naproxen 500 mg tablet 500 mg PO BID PRN (Reason: pain) 10 Days Qty: 20 0RF cyclobenzaprine 5 mg tablet 5 mg PO Q8H PRN (Reason: pain (scale score 7-10)) 5 Days Qty: 14 0RF acetaminophen 650 mg tablet extended release 650 mg PO Q8H PRN (Reason: pain) Qty: 20 0RF amoxicillin-pot clavulanate 875-125 mg tablet 1 tab PO BID Qty: 20 0RF oxybutynin chloride 10 mg tablet extended release 24hr 10 mg PO DAILY Qty: 30 6RF Citrucel (sucrose) Powder 1 tbsp PO BID docusate sodium [Colace] 100 mg capsule 100 mg PO DAILY 30 Days Qty: 30 6RF clonazepam 2 mg tablet 2 mg PO DAILY lisinopril 40 mg tablet 40 mg PO DAILY aspirin [Adult Aspirin Regimen] 81 mg tablet,delayed release (DR/EC) 81 mg PO DAILY meloxicam 7.5 mg tablet 7.5 mg PO DAILY 30 Days Qty: 30 0RF chlorthalidone 50 mg tablet 50 mg PO DAILY aripiprazole 2 mg tablet 2 mg PO DAILY fluoxetine 20 mg capsule 60 mg PO QAM mirtazapine 45 mg tablet 45 mg PO BEDTIME Flovent HFA 220 mcg/actuation HFA aerosol inhaler 0 mcg inhalation cholecalciferol (vitamin D3) [Vitamin D3] 25 mcg (1,000 unit) capsule 25 mcg PO QAM hydralazine 25 mg tablet 25 mg PO atorvastatin 40 mg tablet 40 mg PO BEDTIME prazosin 1 mg capsule 1 mg PO BEDTIME quetiapine 150 mg tablet extended release 24 hr 150 mg PO BEDTIME quetiapine 50 mg tablet 50 mg PO BEDTIME Premarin 0.625 mg/gram cream 0 mg vaginal levothyroxine 50 mcg tablet 50 mcg PO QAM metformin 500 mg tablet 500 mg PO omeprazole 40 mg capsule,delayed release(DR/EC) 40 mg PO DAILY Qty: 30 6RF Linzess 290 mcg capsule 290 mcg PO QAM 30 Days Qty: 30 6RF dicyclomine 20 mg tablet 20 mg PO TID 30 Days Qty: 90 6RF simethicone [Gas Relief (simethicone)] 180 mg capsule 180 mg PO BID 30 Days Qty: 60 6RF metronidazole 500 mg tablet 500 mg PO TID 10 Days Qty: 30 0RF sulfamethoxazole-trimethoprim [Bactrim DS] 800-160 mg tablet 1 tab PO BID Qty: 10 0RF Referrals: Kathryn Jarquin MD [Primary Care Provider] - 2 days
[2022-12-12 16:16] LABS: Appearance Urine Cloudy; Color Urine Yellow; Glucose Urine UA Negative (Negative); Leukocyte Esterase Urine Small (1+) (Negative); Nitrite Urine Negative (Negative); PH 5.5 (5.0-9.0); Specific Gravity - Urine 1.015 (1.005-1.025); UMIC TRIGGER UACC YES; Urine Blood Negative (Negative); Urine Ketones Negative (Negative); Urine Protein Negative (Neg-Trace)
[2022-12-12] MEDS: 0.9 % Sodium Chloride 1,000 ML 999 ML IV (16:22)
[2022-12-12 16:31] LABS: Bacteria Urine 4+ (None Seen); Hyaline Casts Urine 0-2 /LPF (0-2); RBC Urine >20 /HPF (0-2); Squamous Epithelial Cell Urine 0-2 /HPF (0-2); UACC Culture Trigger YES
[2022-12-12] MEDS: metroNIDAZOLE 500 MG TABLET PO (19:22)
[2022-12-12] MEDS: levoFLOXacin 500 MG TABLET PO (19:22)
[2022-12-12] MEDS: Acetaminophen 325 MG TABLET 650 MG PO (19:23)
== END 2022-12-12 19:28 | disposition home or self-care (01) ==
PROVIDERS: Nurse Practitioner Family; Emergency Provider Emergency Medicine; PCP Family Medicine
DX: K57.32 Diverticulitis of large intestine without perforation or abscess without bleeding (principal); N39.0 Urinary tract infection, site not specified; R10.2 Pelvic and perineal pain; R10.30 Lower abdominal pain, unspecified; R11.2 Nausea with vomiting, unspecified; Z79.899 Other long term (current) drug therapy
CPT/HCPCS: 36415; 74176; 76830; 76856; 80048; 80076; 81001; 83690; 85025; 87086; 87088; 87186; 96360; 99284

== ENCOUNTER 2022-12-21 11:33 | Emergency (ER) | payer OTHER, SELFPAY ==
--- NOTE | ~2022-12-21 | XR_ITS ---
EXAMINATION: XR KNEE, RIGHT CLINICAL INFORMATION: Pain. COMPARISON: Right knee radiographs dated 09/23/2022. TECHNIQUE: Four views of the right knee. FINDINGS: Minimal medial compartment joint space narrowing with tiny marginal osteophytes, unchanged. Minimal medial and lateral compartment chondrocalcinosis. No acute fracture or dislocation. No concerning lytic or blastic osseous lesion. Small joint effusion, new when compared to the prior examination. Atherosclerotic calcifications. XR/XR knee RT 4V IMPRESSION: Minimal medial compartment arthrosis, unchanged. Minimal medial and lateral compartment chondrocalcinosis. Small joint effusion, new when compared to the prior examination.
--- NOTE | 2022-12-21 11:55 | ED.LOWEXIN ---
HPI - Extremity Injury (Lower) General Chief Complaint: Extremity Problem Stated Complaint: B/L Knee Pain No Injury Time Seen by Provider: 12/21/22 17:19 Source: patient Mode of arrival: ambulatory Limitations: no limitations History of Present Illness HPI Narrative: Patient with osteoarthritis were noticed increased pain in left knee for last 1 week with slight swelling no recent fall or trauma take Tylenol Arthritis tablet without any response has not seen any specialist has not have an MRI in the past no fever no chills left knee is more painful than the right Related Data Home Medications Medication Instructions Recorded Confirmed methylcellulose (with sugar) oral 1 tbsp PO BID 01/25/20 08/06/22 powder (Citrucel (sucrose) oral powder) aspirin 81 mg tablet,delayed 81 mg PO DAILY 06/10/20 08/06/22 release (Adult Aspirin Regimen) clonazepam 2 mg tablet 2 mg PO DAILY 06/10/20 08/06/22 lisinopril 40 mg tablet 40 mg PO DAILY 06/10/20 08/06/22 aripiprazole 2 mg tablet 2 mg PO DAILY 03/23/21 08/06/22 chlorthalidone 50 mg tablet 50 mg PO DAILY 03/23/21 08/06/22 fluoxetine 20 mg capsule 60 mg PO QAM 03/23/21 08/06/22 mirtazapine 45 mg tablet 45 mg PO BEDTIME 03/23/21 08/06/22 fluticasone propionate 220 0 mcg inhalation 08/11/21 08/06/22 mcg/actuation HFA aerosol inhaler (Flovent HFA) atorvastatin 40 mg tablet 40 mg PO BEDTIME 08/04/22 08/06/22 cholecalciferol (vitamin D3) 25 25 mcg PO QAM 08/04/22 08/06/22 mcg (1,000 unit) capsule (Vitamin D3) conjugated estrogens 0.625 mg/gram 0 mg vaginal 08/04/22 08/06/22 vaginal cream (Premarin) hydralazine 25 mg tablet 25 mg PO 08/04/22 08/06/22 levothyroxine 50 mcg tablet 50 mcg PO QAM 08/04/22 08/06/22 metformin 500 mg tablet 500 mg PO 08/04/22 08/06/22 prazosin 1 mg capsule 1 mg PO BEDTIME 08/04/22 08/06/22 quetiapine 150 mg tablet,extended 150 mg PO BEDTIME 08/04/22 08/06/22 release 24 hr quetiapine 50 mg tablet 50 mg PO BEDTIME 08/04/22 08/06/22 Previous Rx's Medication Instructions Recorded magnesium oxide 400 mg PO DAILY 7 days #7 caps 04/08/20 oxybutynin chloride 10 mg 10 mg PO DAILY #30 tabs 04/15/20 tablet,extended release 24 hr cyclobenzaprine 5 mg tablet 5 mg PO Q8H PRN pain (scale score 05/28/20 7-10) 5 days #14 tabs naproxen 500 mg tablet 500 mg PO BID PRN pain 10 days #20 05/28/20 tabs meloxicam 7.5 mg tablet 7.5 mg PO DAILY 1 month #30 tabs 06/20/20 acetaminophen 650 mg 650 mg PO Q8H PRN pain #20 tabs 11/19/20 tablet,extended release docusate sodium 100 mg capsule 100 mg PO DAILY 30 days #30 caps 11/25/20 (Colace) amoxicillin 875 mg-potassium 1 tab PO BID #20 tabs 07/26/22 clavulanate 125 mg tablet dicyclomine 20 mg tablet 20 mg PO TID 30 days #90 tabs 08/04/22 linaclotide 290 mcg capsule 290 mcg PO QAM 30 days #30 caps 08/04/22 (Linzess) metronidazole 500 mg tablet 500 mg PO TID 10 days #30 tabs 08/04/22 omeprazole 40 mg capsule,delayed 40 mg PO DAILY #30 caps 08/04/22 release simethicone 180 mg capsule (Gas 180 mg PO BID 30 days #60 caps 08/04/22 Relief (simethicone)) sulfamethoxazole 800 1 tab PO BID #10 tabs 08/04/22 mg-trimethoprim 160 mg tablet (Bactrim DS) levofloxacin 500 mg tablet 500 mg PO DAILY 7 days #7 tabs 12/12/22 metronidazole 500 mg tablet 500 mg PO BID 7 days #14 tabs 12/12/22 tramadol 50 mg tablet 50 mg PO Q6H PRN pain #20 tabs 12/21/22 Allergies Allergy/AdvReac Type Severity Reaction Status Date / Time No Known Allergies Allergy Unknown UNKNOWN Verified 12/12/22 10:24 [NO KNOWN ALLERGIES] Review of Systems Review of Systems: Yes all other systems are reviewed and are negative [facility] Past Medical History Medical History Chronic kidney disease Diabetes 1.5, managed as type 2 HTN (hypertension) KIRSTIE (stress urinary incontinence, female) Urge incontinence Dysuria Chronic idiopathic constipation GERD (gastroesophageal reflux disease) Irritable bowel syndrome with constipation Surgical History H/O tubal ligation Hx of section H/O: hysterectomy History of esophagogastroduodenoscopy (EGD) Hx of colonoscopy Family History Family History Father Family hx of prostate cancer Cancer Brother Cancer Mother HTN (hypertension) Maternal Aunt Skin cancer, Onset Age: 59 Social History Social History Household Members: None Alcohol intake: never Advance Directives: No Advance Directives Information Provided: No Current occupational status: disabled Physical Exam Vital Signs: Vital Signs: Last Vital Signs Temp 98.2 F 12/21/22 14:00 Pulse 76 12/21/22 14:00 Resp 16 12/21/22 14:00 BP 136/104 H 12/21/22 14:00 Pulse Ox 98 12/21/22 14:00 O2 Del Method Room Air 12/21/22 14:00 BMI result Body Mass Index 42.7 Appearance: Alert. Oriented X3. No acute distress. Neck: Normal inspection. Neck supple. CVS: Normal heart rate and rhythm. Pulses normal. Respiratory: No respiratory distress. Equal air entry bilateral, Abdomen: Soft and nontender. Skin: Skin warm and dry. Normal skin color. Normal skin turgor. Extremities: No lower extremity edema. No calf tenderness diffuse tenderness bilateral knee left more than the right with slight effusion left side good range of movement Mariama and anterior drawer sign negative Neuro: Oriented X 3. No motor deficit. Course Course Course Narrative: This is an RME: Additional HPI, ROS, PE not included below will be deferred to primary provider. This is a [id number], with a history of osteopenia, diverticulitis, nonalcoholic steatohepatitis, GERD, stress urinary incontinence with complaints of bilateral knee pain, right worse than left. No recent trauma or injury. Has been taking tylenol without any relief. She states difficulty walking due to pain. She normally walks with a walker. No hx of blood clots. She was seen in the emergency department 9 days ago, she states that she did not have the pain at this time. Tenderness palpation along the medial and lateral joint lines bilaterally. No calf tenderness to palpation. Plan r knee xray ordered Medications Administered Discontinued Medications Generic Name Dose Route Start Last Admin Trade Name Freq PRN Reason Stop Dose Admin Tramadol HCl 50 mg 12/21/22 17:52 12/21/22 18:37 Tramadol Hcl 50 Mg Tablet PO 12/21/22 17:53 50 mg ONCE ONE Administration Medical Decision Making Medical Decision Making [facility] Narrative: Patient with osteoarthritis of the knee with no acute injury x-ray negative for fracture discharge patient home after applying Jonh wrap to follow-up with orthopedics Radiology Impression Discussion of test interpretation with radiology: I have reviewed the radiologist's reading. Discharge Plan Discharge Clinical Impression: Arthritis of knee Patient Disposition: Home, Self-Care Instructions: Osteoarthritis (ED) Additional Instructions: Jonh wrap for support Tramadol for pain Follow-up with PCP for further evaluation including MRI Envoltura Jonh para soporte. tramadol para el dolor Seguimiento con el PCP para rafaela evaluaci?n adicional, incluida rafaela resonancia magn?akhil Prescriptions: New tramadol 50 mg tablet 50 mg PO Q6H PRN (Reason: pain) Qty: 20 0RF No Action magnesium oxide 400 mg magnesium capsule 400 mg PO DAILY 7 Days Qty: 7 0RF naproxen 500 mg tablet 500 mg PO BID PRN (Reason: pain) 10 Days Qty: 20 0RF cyclobenzaprine 5 mg tablet 5 mg PO Q8H PRN (Reason: pain (scale score 7-10)) 5 Days Qty: 14 0RF acetaminophen 650 mg tablet extended release 650 mg PO Q8H PRN (Reason: pain) Qty: 20 0RF amoxicillin-pot clavulanate 875-125 mg tablet 1 tab PO BID Qty: 20 0RF levofloxacin 500 mg tablet 500 mg PO DAILY 7 Days Qty: 7 0RF metronidazole 500 mg tablet 500 mg PO BID 7 Days Qty: 14 0RF oxybutynin chloride 10 mg tablet extended release 24hr 10 mg PO DAILY Qty: 30 6RF Citrucel (sucrose) Powder 1 tbsp PO BID docusate sodium [Colace] 100 mg capsule 100 mg PO DAILY 30 Days Qty: 30 6RF clonazepam 2 mg tablet 2 mg PO DAILY lisinopril 40 mg tablet 40 mg PO DAILY aspirin [Adult Aspirin Regimen] 81 mg tablet,delayed release (DR/EC) 81 mg PO DAILY meloxicam 7.5 mg tablet 7.5 mg PO DAILY 30 Days Qty: 30 0RF chlorthalidone 50 mg tablet 50 mg PO DAILY aripiprazole 2 mg tablet 2 mg PO DAILY fluoxetine 20 mg capsule 60 mg PO QAM mirtazapine 45 mg tablet 45 mg PO BEDTIME Flovent HFA 220 mcg/actuation HFA aerosol inhaler 0 mcg inhalation cholecalciferol (vitamin D3) [Vitamin D3] 25 mcg (1,000 unit) capsule 25 mcg PO QAM hydralazine 25 mg tablet 25 mg PO atorvastatin 40 mg tablet 40 mg PO BEDTIME prazosin 1 mg capsule 1 mg PO BEDTIME quetiapine 150 mg tablet extended release 24 hr 150 mg PO BEDTIME quetiapine 50 mg tablet 50 mg PO BEDTIME Premarin 0.625 mg/gram cream 0 mg vaginal levothyroxine 50 mcg tablet 50 mcg PO QAM metformin 500 mg tablet 500 mg PO omeprazole 40 mg capsule,delayed release(DR/EC) 40 mg PO DAILY Qty: 30 6RF Linzess 290 mcg capsule 290 mcg PO QAM 30 Days Qty: 30 6RF dicyclomine 20 mg tablet 20 mg PO TID 30 Days Qty: 90 6RF simethicone [Gas Relief (simethicone)] 180 mg capsule 180 mg PO BID 30 Days Qty: 60 6RF metronidazole 500 mg tablet 500 mg PO TID 10 Days Qty: 30 0RF sulfamethoxazole-trimethoprim [Bactrim DS] 800-160 mg tablet 1 tab PO BID Qty: 10 0RF Interventions: ED Discharge Assessment Last Done: 12/21/22 18:49 Discharge Date/Time: 12/21/22 18:53
[2022-12-21 11:56] VITALS: BP 135/70; PULSE 80; RESP 18; TEMP 36.6; O2SAT 94; BMI 42.7
[2022-12-21 14:00] VITALS: BP 136/104; PULSE 76; RESP 16; TEMP 36.8; O2SAT 98
[2022-12-21] MEDS: traMADoL HCL 50 MG TABLET PO (18:37)
== END 2022-12-21 18:53 | disposition home or self-care (01) ==
PROVIDERS: Emergency Provider Internal Medicine; PCP Family Medicine
DX: M17.11 Unilateral primary osteoarthritis, right knee (principal); M25.461 Effusion, right knee; M25.561 Pain in right knee; Z79.82 Long term (current) use of aspirin; Z79.899 Other long term (current) drug therapy
CPT/HCPCS: 73564; 99283

== ENCOUNTER 2022-12-29 14:24 | Outpatient (AMB) | payer OTHER, SELFPAY ==
--- NOTE | 2022-12-29 14:36 | MHC.OFFVIS ---
Intake Vital Signs 12/29/22 14:40 Height 4 ft 3 in Weight 154 lb BMI 41.6 BP 117/71 Blood Pressure Location Rt brachial Position Sitting Pulse 72 Intake Visit Reasons: follow up from ER missed September follow up Intake Note: Patient presents to in office visit today in follow up of abdominal pain. CC: Patient was seen in the ER on 12/12 with c/o UTI and abdominal pain. She reports she had diverticulitis and was given abx. Per patient she is not having any abdominal pain and completed abx course. She c/o today of vaginal pain from UTI and BLE pain. She reports she has constipation all the time and is only able to have BM when she take the Linzess. Last BM per PT was 3 days ago. Allergies No Known Allergies [NO KNOWN ALLERGIES] Allergy (Unknown, Verified 12/29/22 14:45) UNKNOWN HPI follow up from ER missed September follow up HPI Details Assessment & Plan (1) Diverticulitis of both large and small intestine with perforation without abscess or bleeding: ?Code(s): K57.40 - Diverticulitis of both small and large intestine with perforation and abscess without bleeding ?Plan: Belgian #[id number] This patient has been lost to follow-up since 08/2021. Sent her by ?ER, continues low abd pain that has eluded GI causes in past.? CT scan obtained in the ER = ?? Bladder perforation secondary to diverticula, but pain not responding to augmentin, she has 2 days left.? She describes the pain as being ?in my vagina? and across the low abdomen centered in the suprapubic area.? It is not related to moving her bowels or T eating.? She continues moving her bowels well on her Linzess.? Only response in past has been to prednisone. Pain mgmt abd block no helpful. Sees crane helper tomorrow. No other GI causes found.? 2018 colonoscopy showed severe diverticulosis of the sigmoid colon with narrowing and there also 2 tubular adenomas at that time. Ref urgently to gen surgery for consideration.? We have discussed surgery in the past the patient says she is now ready to consider this..? She also has a history of recurrent urine tract infections so it makes me wonder if there was not an un discovered problem between the bladder and the colon in the past. Will extend abx to include flagyl and bactrim (cover urine as well) also severe interaction for seroquel with Levaquin anyway. She continues on her omeprazole 40 once a day, Linzess 290, Colace, dicyclomine, and simethicone for her GI conditions.? All of these are well controlled and she has no perceived trouble with gas trapping or constipation at this point on this regimen ROV 6 weeks.? ALSO DISCUSSED POSSIBLE REPEAT COLONOSCOPY DEPENDING ON WHEN HER GENERAL SURGERY CONSULT SHE IS OVERDUE FOR POLYP SCREENING. (2) Diverticulitis: ?Code(s): K57.92 - Diverticulitis of intestine, part unspecified, without perforation or abscess without bleeding (3) Pelvic pain: ?Code(s): R10.2 - Pelvic and perineal pain (4) Chronic idiopathic constipation: ?Code(s): K59.04 - Chronic idiopathic constipation (5) GERD (gastroesophageal reflux disease): ?Code(s): K21.9 - Gastro-esophageal reflux disease without esophagitis (6) Pain, coccyx: ?Code(s): M53.3 - Sacrococcygeal disorders, not elsewhere classified (7) Abdominal bloating: ?Code(s): R14.0 - Abdominal distension (gaseous) (8) Tubular adenoma of colon: ?Comment: 2018 scope=2 sessile TA's, severe sigmoid diverticulosis with narrowing ?Code(s): D12.6 - Benign neoplasm of colon, unspecified ? ? ? Orders: [facility] ? K57.40 - Diverticu litis of both smal l and large intest ine with perforati on and abscess wit hout bleeding, K57 .92 - Diverticulit is of intestine, p art unspecified, w ithout perforation or abscess withou t bleeding ? Medications: New metronidazole 500 mg? PO TID 10 days 30 tabs 0RF K57.40 - Diverticu litis of both smal l and large intest ine with perforati on and abscess wit hout bleeding ? sulfamethoxazole-t rimethoprim 800-16 0 mg (Bactrim DS) 1 tab? PO BID 10 t abs 0RF ? ? Refilled omeprazole 40 mg? PO DAILY 30 caps 6RF K21.9 - Gastro-eso phageal reflux dis ease without esoph agitis ? linaclotide (Linze ss) 290 mcg? PO QAM 30 days 30 caps 6RF F K59.04 - Chronic i diopathic constipa tion ? dicyclomine 20 mg? PO TID 30 d ays 90 tabs 6RF R10.9 - Unspecifie d abdominal pain ? simethicone (Gas R elief (simethicone )) 180 mg? PO BID 30 days 60 caps 6RF R14.0 - Abdominal distension (gaseou s) ? REVIEW OF ER NOTES 12/12/2022 presenting to the emergency department for evaluation of right lower quadrant abdominal pain, dysuria and decreased urinary flow. Patient reports all this started this morning. Suddenly. Patient tells me she thinks she might have a urinary tract infection. Also reporting some associated nausea. She denies fevers, chills, chest pain, shortness of breath, headache, vision changes, dizziness and weakness. Addendum, sign-out was not given today and, I will continue to care for this patient. I did discuss this case with surgery who states if patient is tolerating p.o. and appears non comfortable patient can be discharged home with oral antibiotics to cover for both diverticulitis and UTI. Due to collection of free fluid noted on CT scan recommends ultrasound of pelvis. Patient without vaginal bleeding or discharge. Will speak to patient about plan. Will continue to monitor. US/US pelvic and transvaginal IMPRESSION: Uterus and adnexa are both surgically absent as seen on today's CT scan. Trace amount of free fluid in the dependent pelvis of uncertain significance. Patient tolerating p.o.. States she is feeling better. Nontoxic appearing. Discharge her home with Levaquin, educated on black box warning of this antibiotic and Flagyl, benefits outweigh risks of this antibiotic. Patient will follow-up with surgery. Educated patient on diagnosis and treatment plan, answered all question, patient verbalizes understanding. At this time patient will be discharged home, advised to return with new or worsening symptoms. Educated on worrisome signs and symptoms and when to return. At this time I feel comfortable discharge home. CT abdomen and pelvis 12/12/22 FINDINGS: LUNG BASES: The visualized lung bases are unremarkable. There are moderate coronary artery atherosclerotic calcifications. There are calcifications of the aortic annulus. LIVER, GALLBLADDER, AND BILIARY TREE: The liver is normal in size, shape, and attenuation. No focal hepatic lesion or biliary ductal dilatation is present. The gallbladder is unremarkable with no evidence of radiopaque gallstones, gallbladder wall thickening, or obvious pericholecystic inflammatory changes. PANCREAS: Unremarkable. SPLEEN: Unremarkable. ADRENAL GLANDS: Unremarkable. There is a tiny calcifications in the left adrenal gland (4:201), possible sequela of remote hemorrhage. This is of no acute clinical significance. KIDNEYS AND URETERS: The kidneys are normal in size, shape, and attenuation. No hydronephrosis, hydroureter, or calculi seen. No perinephric stranding. BLADDER: Unremarkable. GASTROINTESTINAL TRACT: There is marked diverticulosis. There is fat stranding adjacent to the mid sigmoid colon (i.e. 3:64). There is a small amount of layering fluid in the posterior pelvis adjacent to the sigmoid colon. This crescentic, layering appearance favors free fluid rather than an organized abscess, although this possibility is not excluded with certainty. No obstruction or free intraperitoneal air is seen. The vermiform appendix appears normal. ABDOMINAL WALL: There has been a prior umbilical herniorrhaphy. LYMPH NODES: No sizable abdominopelvic lymphadenopathy is seen. There are aortoiliac atherosclerotic calcifications. VASCULAR: There is moderate aortoiliac atherosclerotic calcification. No abdominal aortic aneurysm or dissection is seen. PELVIC VISCERA: Surgically absent. No pelvic mass, free fluid or lymphadenopathy is seen. OSSEOUS STRUCTURES: Unremarkable. CT/CT abdomen pelvis wo IV con IMPRESSION: There is marked colonic diverticulosis. There is fat stranding adjacent to the sigmoid colon, and a crescentic low-attenuation fluid collection is seen in the dependent pelvis abutting the posterior margin of the mid sigmoid colon. The crescentic configuration of this fluid collection favors free fluid, rather than an organized abscess. Together, the findings suggest possible acute diverticulitis. Recommend clinical correlation, management on a clinical basis and follow-up imaging as clinically indicated. No obstruction or free intraperitoneal air is seen. TODAY'S VISIT Belgian #Jeane lIVE She had another bout of diverticulitis since I last saw her. She was seen in the ER. They treated her with I think Levaquin and Flagyl all the note is unclear. She completed those antibiotics about 3 days ago. She continues to have pain that 6 to 7/10 in the lower abdomen that radiates to the front to the back. On discussion it turns out that despite taking her Linzess every day she has only moving her bowels about every 3rd day and it is hard stools followed by looser stools. Clearly she is not moving them enough and the stools are to hard causing the cycle of diverticulitis. Also she has been taking Pepto-Bismol for what she sees as the diarrhea phase and I strongly discouraged this as this is just putting her back into constipation cycles and that is going to continue to aggravate and cause her diverticular infections. Regarding to add bisacodyl 1-2 tablets at night with her Linzess 290 and she is already on Colace. She is also asking for refill of her Citrucel which she apparently has not had for a while and that will also be very helpful in softening the stools. I send this for her to [facility]. I am also going to extend her antibiotics for 7 day since she still having quite a bit of pain and I will give her Augmentin. She also continues on her omeprazole, dicyclomine and simethicone with good control of her GERD and cramping. Return office visit in 3 weeks. [facility] Medical History Chronic kidney disease Diabetes 1.5, managed as type 2 HTN (hypertension) KIRSTIE (stress urinary incontinence, female) Urge incontinence Dysuria Chronic idiopathic constipation GERD (gastroesophageal reflux disease) Irritable bowel syndrome with constipation Surgical History H/O tubal ligation Hx of section H/O: hysterectomy History of esophagogastroduodenoscopy (EGD) Hx of colonoscopy Family History Father Family hx of prostate cancer Cancer Brother Cancer Mother HTN (hypertension) Maternal Aunt Skin cancer, Onset Age: 59 Social History Household Members: None Alcohol intake: never Current occupational status: disabled Female Reproductive History Menstrual Age of Menarche: 12 Review of Systems Const Denies fatigue, Denies fever(s), Denies night sweats, Denies poor appetite and Denies weight loss ENT Reports Normal hearing present, Denies dental pain, Denies dysphagia, Denies hearing loss, Denies mouth pain, Denies odynophagia, Denies throat swelling, Denies tongue swelling and Reports other (Dentition adequate) Card Reports no additional complaints Resp Reports no additional complaints GI Reports abdominal pain, Denies melena, Denies bloating, Denies hematochezia, Reports constipation, Denies GI cramping, Denies dysphagia, Denies excessive flatus, Denies early satiety, Reports heartburn, Denies diarrhea, Denies nausea, Denies odynophagia, Denies vomiting and Denies hematemesis Skin/Breast Denies pruritus, Denies lesions, Denies rash and Denies jaundice Neuro Reports Normal hearing present and Denies Abnormal speech present Endo Denies fatigue Aller/Immun Denies throat swelling and Denies tongue swelling Physical Exam Vital Signs: Last Vital Signs Pulse 72 12/29/22 14:40 BP 117/71 12/29/22 14:40 BMI result Body Mass Index 41.6 Const General: cooperative, no acute distress, well developed and well groomed Nutritional Appearance: well nourished and obese morbidly obese Orientation/consciousness: oriented to person, oriented to place and oriented to time Limitations: language barrier HEENT Head: Yes normocephalic and Yes atraumatic Eyes General: appearance normal, both eyes and all related structures Pupils: Equal, round and reactive pupils present Neck Neck: Yes normal visual inspection and Yes no lymphadenopathy Thyroid: Thyroid normal Resp Effort & Inspection: normal respiratory effort and able to speak in complete sentences Auscultation: clear to auscultation bilaterally Cardio Rate: regular rate Rhythm: regular rhythm Heart sounds: Normal, physiologic split S2 sound present Peripheral pulses: radial pulses present and posterior tibial pulses present GI Inspection: No distended, Yes Abdominal panniculus present and Yes obesity Palpation (GI): Soft to palpation, Tenderness to palpation present (GI) in the LLQ and in the RUQ, no guarding, not rigid and No hepatosplenomegaly present Percussion: Yes normal to percussion Auscultation: normal bowel sounds Rectal Exam - Female: deferred Skin General skin exam: no rashes or lesions noted, turgor normal, skin not dry, no jaundice, No spider nevi and no striae Rashes: no rashes Nails: normal Neuro General: oriented to person, oriented to place and oriented to time Cranial nerves: Yes Equal, round and reactive pupils present and Yes Normal hearing present Speech: No Abnormal speech present Extrem General: Yes normal to inspection, No clubbing, No cyanosis and No edema Psych Appearance: grossly normal and well kempt Mental Status: mental status grossly normal Speech and movement: Normal speech and movement present Affect: normal affect Attitude: cooperative Thought process: Circumstantial thought process present and not confabulating Thought content: Normal thought content present Insight: Limited insight present (Psych) Judgement: Limited judgement present (Psych) Results Reviewed Results Reviewed: REVIEW OF ER NOTES 12/12/2022 presenting to the emergency department for evaluation of right lower quadrant abdominal pain, dysuria and decreased urinary flow. Patient reports all this started this morning. Suddenly. Patient tells me she thinks she might have a urinary tract infection. Also reporting some associated nausea. She denies fevers, chills, chest pain, shortness of breath, headache, vision changes, dizziness and weakness. Addendum, sign-out was not given today and, I will continue to care for this patient. I did discuss this case with surgery who states if patient is tolerating p.o. and appears non comfortable patient can be discharged home with oral antibiotics to cover for both diverticulitis and UTI. Due to collection of free fluid noted on CT scan recommends ultrasound of pelvis. Patient without vaginal bleeding or discharge. Will speak to patient about plan. Will continue to monitor. US/US pelvic and transvaginal IMPRESSION: Uterus and adnexa are both surgically absent as seen on today's CT scan. Trace amount of free fluid in the dependent pelvis of uncertain significance. Patient tolerating p.o.. States she is feeling better. Nontoxic appearing. Discharge her home with Levaquin, educated on black box warning of this antibiotic and Flagyl, benefits outweigh risks of this antibiotic. Patient will follow-up with surgery. Educated patient on diagnosis and treatment plan, answered all question, patient verbalizes understanding. At this time patient will be discharged home, advised to return with new or worsening symptoms. Educated on worrisome signs and symptoms and when to return. At this time I feel comfortable discharge home. CT abdomen and pelvis 12/12/22 FINDINGS: LUNG BASES: The visualized lung bases are unremarkable. There are moderate coronary artery atherosclerotic calcifications. There are calcifications of the aortic annulus. LIVER, GALLBLADDER, AND BILIARY TREE: The liver is normal in size, shape, and attenuation. No focal hepatic lesion or biliary ductal dilatation is present. The gallbladder is unremarkable with no evidence of radiopaque gallstones, gallbladder wall thickening, or obvious pericholecystic inflammatory changes. PANCREAS: Unremarkable. SPLEEN: Unremarkable. ADRENAL GLANDS: Unremarkable. There is a tiny calcifications in the left adrenal gland (4:201), possible sequela of remote hemorrhage. This is of no acute clinical significance. KIDNEYS AND URETERS: The kidneys are normal in size, shape, and attenuation. No hydronephrosis, hydroureter, or calculi seen. No perinephric stranding. BLADDER: Unremarkable. GASTROINTESTINAL TRACT: There is marked diverticulosis. There is fat stranding adjacent to the mid sigmoid colon (i.e. 3:64). There is a small amount of layering fluid in the posterior pelvis adjacent to the sigmoid colon. This crescentic, layering appearance favors free fluid rather than an organized abscess, although this possibility is not excluded with certainty. No obstruction or free intraperitoneal air is seen. The vermiform appendix appears normal. ABDOMINAL WALL: There has been a prior umbilical herniorrhaphy. LYMPH NODES: No sizable abdominopelvic lymphadenopathy is seen. There are aortoiliac atherosclerotic calcifications. VASCULAR: There is moderate aortoiliac atherosclerotic calcification. No abdominal aortic aneurysm or dissection is seen. PELVIC VISCERA: Surgically absent. No pelvic mass, free fluid or lymphadenopathy is seen. OSSEOUS STRUCTURES: Unremarkable. CT/CT abdomen pelvis wo IV con IMPRESSION: There is marked colonic diverticulosis. There is fat stranding adjacent to the sigmoid colon, and a crescentic low-attenuation fluid collection is seen in the dependent pelvis abutting the posterior margin of the mid sigmoid colon. The crescentic configuration of this fluid collection favors free fluid, rather than an organized abscess. Together, the findings suggest possible acute diverticulitis. Recommend clinical correlation, management on a clinical basis and follow-up imaging as clinically indicated. No obstruction or free intraperitoneal air is seen. Assessment & Plan Assessment & Plan (1) Diverticulitis: Code(s): K57.92 - Diverticulitis of intestine, part unspecified, without perforation or abscess without bleeding Plan: [place] #Jeane lIVE She had another bout of diverticulitis since I last saw her. She was seen in the ER. They treated her with I think Levaquin and Flagyl all the note is unclear. She completed those antibiotics about 3 days ago. She continues to have pain that 6 to 7/10 in the lower abdomen that radiates to the front to the back. On discussion it turns out that despite taking her Linzess every day she has only moving her bowels about every 3rd day and it is hard stools followed by looser stools. Clearly she is not moving them enough and the stools are to hard causing the cycle of diverticulitis. Also she has been taking Pepto-Bismol for what she sees as the diarrhea phase and I strongly discouraged this as this is just putting her back into constipation cycles and that is going to continue to aggravate and cause her diverticular infections. Regarding to add bisacodyl 1-2 tablets at night with her Linzess 290 and she is already on Colace. She is also asking for refill of her Citrucel which she apparently has not had for a while and that will also be very helpful in softening the stools. I send this for her to [facility]. I am also going to extend her antibiotics for 7 day since she still having quite a bit of pain and I will give her Augmentin. She also continues on her omeprazole, dicyclomine and simethicone with good control of her GERD and cramping. Return office visit in 3 weeks. (2) Chronic idiopathic constipation: Code(s): K59.04 - Chronic idiopathic constipation (3) GERD (gastroesophageal reflux disease): Code(s): K21.9 - Gastro-esophageal reflux disease without esophagitis (4) Tubular adenoma of colon: Comment: 2018 scope=2 sessile TA's, severe sigmoid diverticulosis with narrowing Code(s): D12.6 - Benign neoplasm of colon, unspecified (5) Diverticulitis of both large and small intestine with perforation without abscess or bleeding: Code(s): K57.40 - Diverticulitis of both small and large intestine with perforation and abscess without bleeding Medications: New methylcellulose (with sugar) (Citrucel (sucrose) oral powder) 1 tbsp PO BID 850 grams 6RF bisacodyl (Dulcolax (bisacodyl)) 10 mg (2 x 5 mg) PO BEDTIME 30 days 60 tabs 6RF K59.04 - Chronic idiopathic constipation amoxicillin-pot clavulanate 875-125 mg 1 tab PO BID 7 days 14 tabs 0RF K57.40 - Diverticulitis of both small and large intestine with perforation and abscess without bleeding Refilled linaclotide (Linzess) 290 mcg PO QAM 30 days 30 caps 6RF K59.04 - Chronic idiopathic constipation dicyclomine 20 mg PO TID 30 days 90 tabs 6RF R10.9 - Unspecified abdominal pain omeprazole 40 mg PO DAILY 30 caps 6RF K21.9 - Gastro-esophageal reflux disease without esophagitis simethicone (Gas Relief (simethicone)) 180 mg PO BID 30 days 60 caps 6RF R14.0 - Abdominal distension (gaseous) docusate sodium (Colace) 100 mg PO DAILY 30 days 30 caps 6RF K59.04 - Chronic idiopathic constipation docusate sodium (Colace) 100 mg PO DAILY 30 days 30 caps 6RF K59.04 - Chronic idiopathic constipation Coding Level of Care Code Est Pt Level 4 (29177) Diagnoses Diverticulitis K57.92 Chronic idiopathic constipation K59.04 GERD (gastroesophageal reflux disease) K21.9 Tubular adenoma of colon D12.6 Diverticulitis of both large and small intestine with perforation without abscess or bleeding K57.40
[2022-12-29 14:40] VITALS: BP 117/71; PULSE 72; BMI 41.6
== END 2022-12-29 15:15 | disposition home or self-care (01) ==
PROVIDERS: PCP Family Medicine; Visit Provider Nurse Practitioner
DX: K57.92 Diverticulitis of intestine, part unspecified, without perforation or abscess without bleeding (principal); K59.04 Chronic idiopathic constipation; K21.9 Gastro-esophageal reflux disease without esophagitis; D12.6 Benign neoplasm of colon, unspecified; K57.40 Diverticulitis of both small and large intestine with perforation and abscess without bleeding
CPT/HCPCS: 99214

== ENCOUNTER → 2022-12-29 14:24 | Outpatient (BNVA) | payer OTHER, SELFPAY | PROVIDERS: PCP Family Medicine; Visit Provider Nurse Practitioner | DX: K57.92 Diverticulitis of intestine, part unspecified, without perforation or abscess without bleeding (principal); K59.04 Chronic idiopathic constipation; K21.9 Gastro-esophageal reflux disease without esophagitis; K57.40 Diverticulitis of both small and large intestine with perforation and abscess without bleeding; D12.6 Benign neoplasm of colon, unspecified | CPT/HCPCS: 99212 ==

== ENCOUNTER 2023-01-13 08:22 | Outpatient (REF) | payer OTHER, SELFPAY ==
[2023-01-13 12:05] LABS: Cholesterol 251 mg/dL (<200); HDL Cholesterol 53 mg/dL (>40); LDL Cholesterol Calculated 168 mg/dL (<100); Triglycerides 154 mg/dL (<150)
[2023-01-13 12:21] LABS: Reflex LDLD? No
[2023-01-13 12:26] LABS: Anion Gap 15 (12-20); Blood Urea Nitrogen 47 mg/dL (9-16); Calcium 9.7 mg/dL (8.4-10.2); Carbon Dioxide 21 mmol/L (22-29); Chloride 107 mmol/L (96-108); Estimated Glomerular Filt Rate 25; Glucose Random 166 mg/dL (60-115); Potassium 4.4 mmol/L (3.3-5.1); Sodium 139 mmol/L (135-145)
[2023-01-13 12:31] LABS: TSH reflex Free T4 1.05 uIU/mL (0.32-4.0)
[2023-01-13 13:24] LABS: Creatinine Urine 117.84 mg/dL; Microalbum/Creatinine Ratio Ur 4.2 ug/mg cr (<30)
== END 2023-01-13 08:23 | disposition home or self-care (01) ==
LOC: HO.HHCL 08:22
PROVIDERS: Visit Provider Family Medicine
DX: E11.65 Type 2 diabetes mellitus with hyperglycemia (principal); E03.9 Hypothyroidism, unspecified; E11.22 Type 2 diabetes mellitus with diabetic chronic kidney disease; N18.31 Chronic kidney disease, stage 3a
CPT/HCPCS: 36415; 80048; 80061; 82043; 82570; 84443

== ENCOUNTER 2023-01-20 14:20 | Outpatient (AMB) | payer OTHER, SELFPAY ==
--- NOTE | 2023-01-20 14:21 | A.OFFVIS_ITS ---
Intake Vital Signs 01/20/23 14:25 Height 4 ft 3 in Weight 151 lb 10.848 oz BMI 41.0 BP 114/62 Blood Pressure Location Lt brachial Position Sitting Pulse 71 Intake Visit Reasons: 4 week follow up Intake Note: Patient presents to in office today in 4 weeks follow up of constipation. CC: Patient reports doing a lot better with medications prescribed. Denies having any new GI symptoms or concerns. [employer] Chief Required: Yes Accompanied by: Self / Same As Patient Allergies No Known Allergies [NO KNOWN ALLERGIES] Allergy (Unknown, Verified 01/20/23 14:29) UNKNOWN HPI 4 week follow up HPI Details Assessment & Plan (1) Diverticulitis: Code(s): K57.92 - Diverticulitis of intestine, part unspecified, without perforation or abscess without bleeding Plan: [place] #Jeane lIVE She had another bout of diverticulitis since I last saw her. She was seen in the ER. They treated her with I think Levaquin and Flagyl all the note is unclear. She completed those antibiotics about 3 days ago. She continues to have pain that 6 to 7/10 in the lower abdomen that radiates to the front to the back. On discussion it turns out that despite taking her Linzess every day she has only moving her bowels about every 3rd day and it is hard stools followed by looser stools. Clearly she is not moving them enough and the stools are to hard causing the cycle of diverticulitis. Also she has been taking Pepto-Bismol for what she sees as the diarrhea phase and I strongly discouraged this as this is just putting her back into constipation cycles and that is going to continue to aggravate and cause her diverticular infections. Regarding to add bisacodyl 1-2 tablets at night with her Linzess 290 and she is already on Colace. She is also asking for refill of her Citrucel which she apparently has not had for a while and that will also be very helpful in softening the stools. I send this for her to [facility]. I am also going to extend her antibiotics for 7 day since she still having quite a bit of pain and I will give her Augmentin. She also continues on her omeprazole, dicyclomine and simethicone with good control of her GERD and cramping. Return office visit in 3 weeks. (2) Chronic idiopathic constipation: Code(s): K59.04 - Chronic idiopathic constipation (3) GERD (gastroesophageal reflux diseas e): Code(s): K21.9 - Gastro-esophageal reflux disease without esophagitis (4) Tubular adenoma of colon: Comment: 2018 scope=2 sessile TA's, severe sigmoi d diverticulosis with narrowing Code(s): D12.6 - Benign neoplasm of colon, unspecified (5) Diverticulitis of both large and sma ll intestine with perforation without abscess or bleeding: Code(s): K57.40 - Diverticulitis of both small and large intestine with perforation and abscess without bleeding Medications: New methylcellulose (with sugar) (Citrucel (sucrose) oral powder) 1 tbsp PO BID 850 grams 6RF bisacodyl (Dulcolax (bisacodyl)) 10 mg (2 x 5 mg) PO BEDTIME 30 days 60 t abs 6RF K59.04 - Chronic idiopathic constipation amoxicillin-pot clavulanate 875-125 mg 1 tab PO BID 7 days 14 tabs 0RF K57.40 - Diverticulitis of both small and large intestine with perforation and abscess without bleeding Refilled linaclotide (Linzess) 290 mcg PO QAM 30 days 30 caps 6RF K59.04 - Chronic idiopathic constipation dicyclomine 20 mg PO TID 30 days 90 tabs 6RF R10.9 - Unspecified abdominal pain omeprazole 40 mg PO DAILY 30 caps 6RF K21.9 - Gastro-esophageal reflux disease without esophagitis simethicone (Gas Relief (simethicone)) 180 mg PO BID 30 days 60 caps 6RF R14.0 - Abdominal distension (gaseous) docusate sodium (Colace) 100 mg PO DAILY 30 days 30 caps 6RF K59.04 - Chronic idiopathic constipation docusate sodium (Colace) 100 mg PO DAILY 30 days 30 caps 6RF K59.04 - Chronic idiopathic constipation Laboratory Tests 12/12/22 12/12/22 12/12/22 13:36 13:36 13:36 WBC 10.4 Hgb 12.3 Hct 38.0 Plt Count 209 Estimated GFR Total Bilirubin 0.3 Direct Bilirubin 0.1 AST 12 ALT 8 Alkaline Phosphata se 97 TSH 01/13/23 01/13/23 08:29 08:29 WBC Hgb Hct Plt Count Estimated GFR 25 Total Bilirubin Direct Bilirubin AST ALT Alkaline Phosphata se TSH 1.05 TODAY'S VISIT [place] #Benjamin Live She has not had a return of her diverticulitis attack which is fortunate. She thinks that her constipation is well controlled on her Linzess every day with 2 bisacodyl tablets although she will still have occasional left lower quadrant pain that lingers which is likely from the fact that she has a very tight area of sigmoid diverticulosis with narrowing as seen on past colonoscopies. I did mention that sometimes surgery is needed to relieve the pain to take out the severely diseased areas. She feels like she is doing well on her omeprazole 40 mg and her famotidine. I note that she seems to have advanced chronic kidney disease her last GFR seems to indicate it may be stage IV. She does not see renal specialist so I will get her referred to 1. I think this is important because if she has another attack or if she needs surgery we may need a supportability engineer to appropriately manage her and make the best recommendations to promote future kidney health. Also we may need to reconsider if she should be on omeprazole and perhaps should be on something like Dexilant which is metabolized through the liver. She says that she drinks 6-8 bottles of water a day. She is agreeable to having the colonoscopy scheduled and we will use PEG prepped as that seems to be the safest for chronic renal patients. There are no prior problems with anesthesia or sedation. She denies any cardiac or respiratory problems. There are no infectious disease problems. Again she has a history of tubular adenomas that were removed in 2018 and she was supposed to have a 3 year follow-up but she was lost during COVID and then we had to resolve her diverticulitis issues before proceeding forward.. [facility] Medical History Chronic kidney disease Diabetes 1.5, managed as type 2 HTN (hypertension) KIRSTIE (stress urinary incontinence, female) Urge incontinence Dysuria Chronic idiopathic constipation GERD (gastroesophageal reflux disease) Irritable bowel syndrome with constipation Surgical History H/O tubal ligation Hx of section H/O: hysterectomy History of esophagogastroduodenoscopy (EGD) Hx of colonoscopy Family History Father Family hx of prostate cancer Cancer Brother Cancer Mother HTN (hypertension) Maternal Aunt Skin cancer, Onset Age: 59 Social History Household Members: None Alcohol intake: never Current occupational status: disabled Female Reproductive History Menstrual Age of Menarche: 12 Review of Systems Const Denies fatigue, Denies fever(s), Denies night sweats, Denies poor appetite and Denies weight loss ENT Reports Normal hearing present, Denies dental pain, Denies dysphagia, Denies hearing loss, Denies mouth pain, Denies odynophagia, Denies throat swelling, Denies tongue swelling and Reports other (Dentition adequate) Card Reports no additional complaints Resp Reports no additional complaints GI Reports abdominal pain, Denies melena, Denies bloating, Denies hematochezia, Reports constipation, Denies GI cramping, Denies dysphagia, Denies excessive flatus, Denies early satiety, Reports heartburn, Denies diarrhea, Denies nausea, Denies odynophagia, Denies vomiting and Denies hematemesis Skin/Breast Denies pruritus, Denies lesions, Denies rash and Denies jaundice Neuro Reports Normal hearing present and Denies Abnormal speech present Endo Denies fatigue Aller/Immun Denies throat swelling and Denies tongue swelling Physical Exam Const General: cooperative, no acute distress, well developed and well groomed Nutritional Appearance: well nourished and overweight Orientation/consciousness: oriented to person, oriented to place and oriented to time Limitations: language barrier HEENT Head: Yes normocephalic and Yes atraumatic Eyes General: appearance normal, both eyes and all related structures Pupils: Equal, round and reactive pupils present Neck Neck: Yes normal visual inspection and Yes no lymphadenopathy Thyroid: Thyroid normal Resp Effort & Inspection: normal respiratory effort and able to speak in complete sentences Auscultation: clear to auscultation bilaterally Cardio Rate: regular rate Rhythm: regular rhythm Heart sounds: Normal, physiologic split S2 sound present Peripheral pulses: radial pulses present and posterior tibial pulses present GI Inspection: No distended, No Abdominal panniculus present and Yes obesity Palpation (GI): Soft to palpation, nontender, no guarding, not rigid and No hepatosplenomegaly present Percussion: Yes normal to percussion Auscultation: normal bowel sounds Rectal Exam - Female: deferred Skin General skin exam: no rashes or lesions noted, turgor normal, skin not dry, no jaundice, No spider nevi and no striae Rashes: no rashes Nails: normal Neuro General: oriented to person, oriented to place and oriented to time Cranial nerves: Yes Equal, round and reactive pupils present and Yes Normal hearing present Speech: No Abnormal speech present Extrem General: Yes normal to inspection, No clubbing, No cyanosis and No edema Psych Appearance: grossly normal and well kempt Mental Status: mental status grossly normal Speech and movement: Normal speech and movement present Affect: normal affect Attitude: cooperative Thought process: Normal thought process present and not confabulating Thought content: Normal thought content present Insight: Limited insight present (Psych) Judgement: Limited judgement present (Psych) Assessment & Plan Assessment & Plan (1) Diverticulitis of both large and small intestine with perforation without abscess or bleeding: Code(s): K57.40 - Diverticulitis of both small and large intestine with perforation and abscess without bleeding Plan: [place] #Lorfranklynna Live She has not had a return of her diverticulitis attack which is fortunate. She thinks that her constipation is well controlled on her Linzess every day with 2 bisacodyl tablets although she will still have occasional left lower quadrant pain that lingers which is likely from the fact that she has a very tight area of sigmoid diverticulosis with narrowing as seen on past colonoscopies. I did mention that sometimes surgery is needed to relieve the pain to take out the severely diseased areas. She feels like she is doing well on her omeprazole 40 mg and her famotidine. I note that she seems to have advanced chronic kidney disease her last GFR seems to indicate it may be stage IV. She does not see renal specialist so I will get her referred to 1. I think this is important because if she has another attack or if she needs surgery we may need a supportability engineer to appropriately manage her and make the best recommendations to promote future kidney health. Also we may need to reconsider if she should be on omeprazole and perhaps should be on something like Dexilant which is metabolized through the liver. She says that she drinks 6-8 bottles of water a day. She is agreeable to having the colonoscopy scheduled and we will use PEG prepped as that seems to be the safest for chronic renal patients. There are no prior problems with anesthesia or sedation. She denies any cardiac or respiratory problems. There are no infectious disease problems. Again she has a history of tubular adenomas that were removed in 2018 and she was supposed to have a 3 year follow-up but she was lost during COVID and then we had to resolve her diverticulitis issues before proceeding forward.. (2) Chronic idiopathic constipation: Code(s): K59.04 - Chronic idiopathic constipation (3) GERD (gastroesophageal reflux disease): Code(s): K21.9 - Gastro-esophageal reflux disease without esophagitis (4) Tubular adenoma of colon: Comment: 2017 scope=2 sessile TA's, severe sigmoid diverticulosis with narrowing, repeat 3 years Code(s): D12.6 - Benign neoplasm of colon, unspecified (5) WILLETT (nonalcoholic steatohepatitis): Comment: 10/2018 ELIZ pos at 1:80 homogenous, autoimmune work up negative, feritin wnl, AFP 2.0, LFT s wnl, NIDDM and overweight LABS: 12/2019 LIVER PANEL IS NORMAL, ALPHA FETOPROTEIN IS 2.3, * ULTRASOUND OF THE ABDOMEN 12/2019 Echogenic liver probably representing fatty infiltration. Limited visualization of the pancreas. * 12/16/2000/05/21 [id number]:[id number] Total Bilirubin 0.2 Direct Bilirubin < 0.2 AST 10 ALT 8 Alkaline Phosphatase 109 D Tumor Marker AFP 2.3 * US ABD 08/06/20 IMPRESSION: Diffuse hepatic steatosis without any focal lesion. ? There is mild pelvic fullness. ? Visualized liver, gallbladder and common bile duct appear unremarkable. Code(s): K75.81 - Nonalcoholic steatohepatitis (WILLETT) (6) Pre-op examination: Code(s): Z01.818 - Encounter for other preprocedural examination (7) CKD (chronic kidney disease) stage 4, GFR 15-29 ml/min: Code(s): N18.4 - Chronic kidney disease, stage 4 (severe) Orders: Referrals Nephrology Referral N18.4 - Chronic kidney disease, stage 4 (severe) Medications: New peg 3350-electrolytes 236-22.74-6.74 -5.86 gram (Golytely) until fecal effluent is clear; do not exceed a total volume of 2,000 mL 240 mL PO Q10M 1 day 4,000 mL 0RF Z12.11 - Encounter for screening for malignant neoplasm of colon Refilled methylcellulose (with sugar) (Citrucel (sucrose) oral powder) 1 tbsp PO BID 850 grams 6RF omeprazole 40 mg PO DAILY 30 caps 6RF K21.9 - Gastro-esophageal reflux disease without esophagitis linaclotide (Linzess) 290 mcg PO QAM 30 days 30 caps 6RF K59.04 - Chronic i diopathic constipation docusate sodium (Colace) 100 mg PO DAILY 30 days 30 caps 6RF K59.04 - Chronic idiopathic constipation bisacodyl (Dulcolax (bisacodyl)) 10 mg (2 x 5 mg) PO BEDTIME 30 days 60 tabs 6RF K59.04 - Chronic idiopathic constipation simethicone (Gas Relief (simethicone)) 180 mg PO BID 30 days 60 caps 6RF R14.0 - Abdominal distension (gaseous) Coding Level of Care Code Est Pt Level 4 (90202) Diagnoses Diverticulitis of both large and small intestine with perforation without abscess or bleeding K57.40 Chronic idiopathic constipation K59.04 GERD (gastroesophageal reflux disease) K21.9 Tubular adenoma of colon D12.6 WILLETT (nonalcoholic steatohepatitis) K75.81 Pre-op examination Z01.818 CKD (chronic kidney disease) stage 4, GFR 15-29 ml/min N18.4
[2023-01-20 14:25] VITALS: BP 114/62; PULSE 71; BMI 41.0
== END 2023-01-20 14:49 | disposition home or self-care (01) ==
PROVIDERS: PCP Family Medicine; Visit Provider Nurse Practitioner
DX: K57.40 Diverticulitis of both small and large intestine with perforation and abscess without bleeding (principal); K59.04 Chronic idiopathic constipation; K21.9 Gastro-esophageal reflux disease without esophagitis; D12.6 Benign neoplasm of colon, unspecified; K75.81 Nonalcoholic steatohepatitis (NASH); Z01.818 Encounter for other preprocedural examination; N18.4 Chronic kidney disease, stage 4 (severe)
CPT/HCPCS: 99214

== ENCOUNTER → 2023-01-20 14:20 | Outpatient (BNVA) | payer OTHER, SELFPAY | PROVIDERS: PCP Family Medicine; Visit Provider Nurse Practitioner | DX: Z01.818 Encounter for other preprocedural examination (principal); K57.40 Diverticulitis of both small and large intestine with perforation and abscess without bleeding; K59.04 Chronic idiopathic constipation; K21.9 Gastro-esophageal reflux disease without esophagitis; K75.81 Nonalcoholic steatohepatitis (NASH); D12.6 Benign neoplasm of colon, unspecified; N18.4 Chronic kidney disease, stage 4 (severe) | CPT/HCPCS: 99212 ==

== ENCOUNTER 2023-02-21 13:59 | Outpatient (REF) | payer OTHER, SELFPAY ==
[2023-02-21 15:23] LABS: Appearance Urine Clear; Color Urine Yellow; Glucose Urine UA Negative (Negative); Leukocyte Esterase Urine Negative (Negative); Nitrite Urine Negative (Negative); Specific Gravity - Urine 1.015 (1.005-1.025); Urine Blood Negative (Negative); Urine Ketones Negative (Negative); Urine Protein Negative (Neg-Trace)
[2023-02-21 15:53] LABS: Anion Gap 11 (12-20); Blood Urea Nitrogen 37 mg/dL (9-16); Calcium 9.8 mg/dL (8.4-10.2); Carbon Dioxide 24 mmol/L (22-29); Chloride 110 mmol/L (96-108); Estimated Glomerular Filt Rate 34; Potassium 4.8 mmol/L (3.3-5.1); Sodium 140 mmol/L (135-145)
[2023-02-21 19:13] LABS: Creatinine Urine 62.81 mg/dL; Total Protein Urine Random < 7 mg/dL (<12)
== END 2023-02-21 14:00 | disposition home or self-care (01) ==
LOC: HO.LAB 13:59
PROVIDERS: PCP Family Medicine; Visit Provider Internal Medicine Hypertension Specialist
DX: I12.9 Hypertensive chronic kidney disease with stage 1 through stage 4 chronic kidney disease, or unspecified chronic kidney disease (principal); N18.9 Chronic kidney disease, unspecified; R30.0 Dysuria
CPT/HCPCS: 36415; 80051; 81003; 82310; 82565; 82570; 84156; 84520; 87086; 99202

== ENCOUNTER 2023-02-21 13:59 | Outpatient (AMB) | payer OTHER, SELFPAY ==
[2023-02-21 14:00] VITALS: BP 94/60; PULSE 71; O2SAT 96; BMI 42.7
--- NOTE | 2023-02-21 14:00 | HO.NEPHOV ---
HPI HPI Comments History of Present Illness Details Wen is a middle-aged woman with history of longstanding hypertension along with diabetes mellitus was had mild chronic kidney disease. Baseline serum creatinine is around 1.2-1.2 mg/dL. In January 2023 creatinine peaked to 1.99. She is on lisinopril 40 mg along with chlorthalidone 50 mg. She has been taking meloxicam 7.5 mg and Naprosyn 500 mg almost on a regular basis. She continues her dysuria. She has longstanding history of constipation and she has been followed by Gastroenterology. [facility] Medical History (Updated 02/21/23 @ 14:15 by Juan C Silver MD) Chronic kidney disease Diabetes 1.5, managed as type 2 HTN (hypertension) KIRSTIE (stress urinary incontinence, female) Urge incontinence Dysuria Chronic idiopathic constipation GERD (gastroesophageal reflux disease) Irritable bowel syndrome with constipation Surgical History H/O tubal ligation Hx of section H/O: hysterectomy History of esophagogastroduodenoscopy (EGD) Hx of colonoscopy Family History Father Family hx of prostate cancer Cancer Brother Cancer Mother HTN (hypertension) Maternal Aunt Skin cancer, Onset Age: 59 Social History Household Members: None Alcohol intake: never Current occupational status: disabled Female Reproductive History Menstrual Age of Menarche: 12 Vital Signs 02/21/23 14:00 Height 4 ft 3 in Weight 158 lb BMI 42.7 BP 94/60 Blood Pressure Location Lt brachial Position Sitting Pulse 71 Pulse Source Pulse Oximeter Pulse Oximetry (%) 96 Oxygen Delivery Method Room Air Physical Exam Vital Signs: Last Vital Signs Pulse 71 02/21/23 14:00 BP 94/60 02/21/23 14:00 Pulse Ox 96 02/21/23 14:00 Oxygen Delivery Method Room Air 02/21/23 14:00 BMI result Body Mass Index 42.7 Const General: comfortable Nutritional Appearance: well nourished Orientation/consciousness: patient oriented x3 HEENT Head: No normal to inspection Mouth: moist mucous membranes Neck Neck: Yes supple and Yes no JVD Resp Auscultation: clear to auscultation bilaterally, no rales and rub present Cardio Jugular venous distension: no JVD Palpation: no palpable S3 and no palpable S4 Heart sounds: no rubs GI Palpation (GI): Soft to palpation and nontender Percussion: No Fluid wave present General: Yes no CVA tenderness Back/Spine/Pelvis Back: no CVA tenderness Skin General skin exam: no rashes or lesions noted Neuro General: patient oriented x3 Extrem General: Yes no pedal edema and No clubbing Results Reviewed Results Reviewed: Results reviewed. She had a CT scan with per orally contrast recently. Both kidneys appeared normal no hydronephrosis. Serum creatinine 1.9. Urine protein creatinine ratio was less than 4.3. Assessment & Plan Assessment & Plan (1) Chronic kidney disease: Code(s): N18.9 - Chronic kidney disease, unspecified Plan: Rudi has FRANTZ superimposed on chronic disease. 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 She has no significant proteinuria therefore diabetic nephropathy seems unlikely. Recent imaging did not reveal any evidence of obstruction. Based on the recent urine studies I do not believe she has any active glomerulonephritis or interstitial disease at this time. Acute kidney injury is most likely due to hypoperfusion from the combination of high-dose of Jonh inhibitors with diuretics along with NSAIDs. I would recommend to discontinue both Naprosyn and meloxicam. Recheck renal function in a week. Avoid hypotension. The blood pressure remains low I would cut back on the diuretics by 50% and reassess for blood pressure and renal function. (2) HTN (hypertension): Code(s): I10 - Essential (primary) hypertension (3) Dysuria: Code(s): R30.0 - Dysuria Plan: Need to rule out UTI. Will check urine culture sensitivity and is on antibiotics. Encouraged her to increase fluid intake. Plan Overall blood pressure seems well controlled however Dr. Lemus blood pressure was rather low. This may be medication induced. I will recheck blood pressure and we might have to decrease diuretics by 50%. Goal is to maintain blood pressure less than 130/80 and avoid hypotension. She should stay on low-sodium diet and weight loss will be beneficial as well. Orders: Orders Blood Urea Nitrogen 1 Week N18.9 - Chronic kidney disease, unspecified Creatinine 1 Week N18.9 - Chronic kidney disease, unspecified Calcium 1 Week N18.9 - Chronic kidney disease, unspecified UA and rflx microscopic 1 Week N18.9 - Chronic kidney disease, unspecified Total Protein Urine Random 1 Week N18.9 - Chronic kidney disease, unspecified UA and rflx microscopic Today R30.0 - Dysuria Electrolytes 1 Week N18.9 - Chronic kidney disease, unspecified Creatinine Urine 1 Week N18.9 - Chronic kidney disease, unspecified Urine Culture Today R30.0 - Dysuria Medications: Discontinued meloxicam Discontinued Reason: Doctor's Order 7.5 mg PO DAILY 1 month 30 tabs 0RF omeprazole Discontinued Reason: Doctor's Order 40 mg PO DAILY 30 caps 6RF K21.9 - Gastro-esophageal reflux disease without esophagitis Coding Level of Care Code New Pt Level 4 (28498) Diagnoses Chronic kidney disease N18.9 HTN (hypertension) I10 Dysuria R30.0
== END 2023-02-21 14:22 | disposition home or self-care (01) ==
PROVIDERS: PCP Family Medicine; Visit Provider Internal Medicine Hypertension Specialist
DX: N18.9 Chronic kidney disease, unspecified (principal); I12.9 Hypertensive chronic kidney disease with stage 1 through stage 4 chronic kidney disease, or unspecified chronic kidney disease; R30.0 Dysuria
CPT/HCPCS: 99204

== ENCOUNTER → 2023-03-07 13:53 | Outpatient (BNVA) | payer OTHER, SELFPAY | PROVIDERS: PCP Family Medicine; Visit Provider Internal Medicine Hypertension Specialist | DX: I12.9 Hypertensive chronic kidney disease with stage 1 through stage 4 chronic kidney disease, or unspecified chronic kidney disease (principal); N18.32 Chronic kidney disease, stage 3b; R30.0 Dysuria | CPT/HCPCS: 99212 ==

== ENCOUNTER 2023-03-25 16:02 | Outpatient (REF) | payer OTHER, SELFPAY ==
[2023-03-25 16:19] LABS: Appearance Urine Clear; Color Urine Yellow; Glucose Urine UA Negative (Negative); Leukocyte Esterase Urine Negative (Negative); Nitrite Urine Negative (Negative); Specific Gravity - Urine 1.015 (1.005-1.025); Urine Blood Negative (Negative); Urine Ketones Negative (Negative); Urine Protein Negative (Neg-Trace)
[2023-03-25 16:22] LABS: Bacteria Urine None Seen (None Seen); Hyaline Casts Urine 0-2 /LPF (0-2); RBC Urine 0-2 /HPF (0-2); WBC Urine 0-5 /HPF (0-5)
== END 2023-03-25 16:03 | disposition home or self-care (01) ==
LOC: HO.LNP 16:02
PROVIDERS: Student in an Organized Health Care Education/Training Program; Visit Provider Internal Medicine Hypertension Specialist
DX: R30.0 Dysuria (principal)
CPT/HCPCS: 81001

== ENCOUNTER 2023-04-15 11:35 | Day surgery (SDC) | payer OTHER, SELFPAY ==
[2023-04-13 08:04] VITALS: BMI 34.1
--- NOTE | 2023-04-14 10:20 | HO.ANESPROP2 ---
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) (Acute) Hypertensive nephropathy (Acute) HTN (hypertension) (Acute) Chronic kidney disease (Acute) CKD (chronic kidney disease) stage 4, GFR 15-29 ml/min (Acute) Pre-op examination (Acute) Osteopenia (Acute) Menopause (Acute) Well woman exam (Acute) Tubular adenoma of colon (Acute) Diverticulitis of both large and small intestine with perforation without abscess or bleeding (Acute) Abdominal pain (Acute) Yesenia albicans infection (Acute) Pain, coccyx (Acute) Dysuria (Acute) Pelvic pain (Acute) Abdominal bloating (Acute) Patellofemoral arthritis of left knee (Acute) Knee pain (Acute) Biceps tendonitis on left (Acute) WILLETT (nonalcoholic steatohepatitis) (Acute) Suprapubic abdominal pain (Acute) Diverticulitis (Acute) Chronic idiopathic constipation (Acute) GERD (gastroesophageal reflux disease) (Acute) Hypomagnesemia (Acute) Abdominal cramping (Acute) KIRSTIE (stress urinary incontinence, female) (Acute) Urge incontinence (Acute) Past Medical History Medical History (Updated 03/07/23 @ 14:12 by Juan C Silver MD) Chronic kidney disease Diabetes 1.5, managed as type 2 HTN (hypertension) KIRSTIE (stress urinary incontinence, female) Urge incontinence Dysuria Chronic idiopathic constipation GERD (gastroesophageal reflux disease) Irritable bowel syndrome with constipation Family History Family History Father Family hx of prostate cancer Cancer Brother Cancer Mother HTN (hypertension) Maternal Aunt Skin cancer, Onset Age: 59 Surgical History Surgical History H/O tubal ligation Hx of section H/O: hysterectomy History of esophagogastroduodenoscopy (EGD) Hx of colonoscopy Social History Social History Household Members: None Alcohol intake: never Advance Directives: No Advance Directives Information Provided: Yes Current occupational status: disabled Meds Allergies Allergy/AdvReac Type Severity Reaction Status Date / Time No Known Allergies Allergy Unknown UNKNOWN Verified 03/07/23 13:59 [NO KNOWN ALLERGIES] Home Medications Medication Instructions Recorded Confirmed Last Taken Type aspirin 81 mg tablet,delayed 81 mg PO DAILY 06/10/20 08/06/22 Unknown History release (Adult Aspirin Regimen) clonazepam 2 mg tablet 2 mg PO DAILY 06/10/20 08/06/22 Unknown History aripiprazole 2 mg tablet 2 mg PO DAILY 03/23/21 08/06/22 Unknown History chlorthalidone 50 mg tablet 50 mg PO DAILY 03/23/21 08/06/22 Unknown History fluoxetine 20 mg capsule 60 mg PO QAM 03/23/21 08/06/22 Unknown History mirtazapine 45 mg tablet 45 mg PO BEDTIME 03/23/21 08/06/22 Unknown History atorvastatin 40 mg tablet 40 mg PO BEDTIME 08/04/22 08/06/22 Unknown History cholecalciferol (vitamin D3) 25 25 mcg PO QAM 08/04/22 08/06/22 Unknown History mcg (1,000 unit) capsule (Vitamin D3) conjugated estrogens 0.625 mg/gram 0 mg vaginal 08/04/22 08/06/22 Unknown History vaginal cream (Premarin) hydralazine 25 mg tablet 25 mg PO 08/04/22 08/06/22 Unknown History levothyroxine 50 mcg tablet 50 mcg PO QAM 08/04/22 08/06/22 Unknown History prazosin 1 mg capsule 1 mg PO BEDTIME 08/04/22 08/06/22 Unknown History fluticasone propionate 220 220 mcg inhalation ONCE 12/29/22 Unknown History mcg/actuation HFA aerosol inhaler (Flovent HFA) metformin 500 mg tablet 500 mg PO BID 12/29/22 Unknown History Exam Height,Weight and Vital Signs: Height 4 ft 8 in Weight 68.946 kg Pertinent Lab Results Pertinent Lab Results: Laboratory Tests 12/12/22 02/21/23 13:36 14:59 WBC 10.4 Hgb 12.3 Hct 38.0 Plt Count 209 Sodium 140 Potassium 4.8 Chloride 110 H Carbon Dioxide 24 BUN 37 H Creatinine 1.51 H Assessment and Plan Assessment Anesthesia Assessment: Chart Reviewed Documented by User: Pratibha Scott MD 04/15/23 12:07 [facility] Past Medical History Medical History (Updated 03/07/23 @ 14:12 by Juan C Silver MD) Chronic kidney disease Diabetes 1.5, managed as type 2 HTN (hypertension) KIRSTIE (stress urinary incontinence, female) Urge incontinence Dysuria Chronic idiopathic constipation GERD (gastroesophageal reflux disease) Irritable bowel syndrome with constipation Family History Family History Father Family hx of prostate cancer Cancer Brother Cancer Mother HTN (hypertension) Maternal Aunt Skin cancer, Onset Age: 59 Family history of problems with anesthesia: No Surgical History Surgical History H/O tubal ligation Hx of section H/O: hysterectomy History of esophagogastroduodenoscopy (EGD) Hx of colonoscopy History of Problems with Anesthesia: No Social History Social History Household Members: None Alcohol intake: never Advance Directives: No Advance Directives Information Provided: Yes Current occupational status: disabled Meds Allergies Allergy/AdvReac Type Severity Reaction Status Date / Time No Known Allergies Allergy Unknown UNKNOWN Verified 03/07/23 13:59 [NO KNOWN ALLERGIES] Home Medications Medication Instructions Recorded Confirmed Last Taken Type aspirin 81 mg tablet,delayed 81 mg PO DAILY 06/10/20 08/06/22 Unknown History release (Adult Aspirin Regimen) clonazepam 2 mg tablet 2 mg PO DAILY 06/10/20 08/06/22 Unknown History aripiprazole 2 mg tablet 2 mg PO DAILY 03/23/21 08/06/22 Unknown History chlorthalidone 50 mg tablet 50 mg PO DAILY 03/23/21 08/06/22 Unknown History fluoxetine 20 mg capsule 60 mg PO QAM 03/23/21 08/06/22 Unknown History mirtazapine 45 mg tablet 45 mg PO BEDTIME 03/23/21 08/06/22 Unknown History atorvastatin 40 mg tablet 40 mg PO BEDTIME 08/04/22 08/06/22 Unknown History cholecalciferol (vitamin D3) 25 25 mcg PO QAM 08/04/22 08/06/22 Unknown History mcg (1,000 unit) capsule (Vitamin D3) conjugated estrogens 0.625 mg/gram 0 mg vaginal 08/04/22 08/06/22 Unknown History vaginal cream (Premarin) hydralazine 25 mg tablet 25 mg PO 08/04/22 08/06/22 Unknown History levothyroxine 50 mcg tablet 50 mcg PO QAM 08/04/22 08/06/22 Unknown History prazosin 1 mg capsule 1 mg PO BEDTIME 08/04/22 08/06/22 Unknown History fluticasone propionate 220 220 mcg inhalation ONCE 12/29/22 Unknown History mcg/actuation HFA aerosol inhaler (Flovent HFA) metformin 500 mg tablet 500 mg PO BID 12/29/22 Unknown History Exam Airway Mallampati Class: II TM Dist: >3cm Neck ROM: Full Denture: Upper and Lower Heart: rrr Lungs: cta Assessment and Plan Assessment Anesthesia Assessment: Anesthesia Plan Discussed Final Anesthetic Review Family History of Problems with Anesthesia: No History of Problems with Anesthesia: No NPO: Yes ASA Class: III Final Preanesthetic Review: No Changes in Pt Med Stat, Meds/Allgs Chart Reviewed and Consent Obtained/Reviewed Patient Risk: Intermediate Procedure Risk: Intermediate Anesthetic Plan Anesthetic Plan: MAC: Disposition: Standard PACU
[2023-04-15 12:04] VITALS: BP 137/64; PULSE 70; RESP 18; TEMP 36.6; O2SAT 96
--- NOTE | 2023-04-15 12:13 | MHC.SHP ---
Pre-Procedural Eval Section A Date of Service: 04/15/23 The patient is an INPATIENT: No The History & Physical has been completed within 30 days and I have reviewed it.: No Section B Chief Complaint: Surveillance for colon polyps Relevant Family History (Specify if Yes): No Relevant Social History: None Present Medications: see Short Stay Collaborative assessment Medical History: Significant History (Chronic kidney disease Diabetes 1.5, managed as type 2 HTN (hypertension) KIRSTIE (stress urinary incontinence, female) Urge incontinence Dysuria Chronic idiopathic constipation GERD (gastroesophageal reflux disease) Irritable bowel syndrome with constipation) History of Previous Operations: Relevant previous surgery/procedure and date(s) (H/O tubal ligation Hx of section H/O: hysterectomy History of esophagogastroduodenoscopy (EGD) Hx of colonoscopy) Allergies: Allergies Allergy/AdvReac Type Severity Reaction Status Date / Time No Known Allergies Allergy Unknown UNKNOWN Verified 03/07/23 13:59 [NO KNOWN ALLERGIES] Review of Systems Sugical H&P ROS: Negative: Constitution, Cardiovascular, Respiratory and Gastrointestinal Exam Surgical H&P Exam: Normal: Heart, Normal: Lungs, Normal: Extremities and Normal: Abdomen Plan Diagnosis/Plan: Unchanged I have reviewed the history and physical and performed a pertinent physical examination on my patient. No changes have occurred unless specified. Time Spent With Patient Time: Total time managing care of this patient today ____ minutes.
[2023-04-15] MEDS: Lactated Ringers 1,000 ML 100 ML IVCONT (12:14)
[2023-04-15] MEDS: Sodium Phosphate,Mono-Dibasic 133 ML ENEMA PR (12:15)
[2023-04-15 12:19] VITALS: BMI 35.8
--- NOTE | 2023-04-15 12:59 | W.PM.OPN ---
Operative Note Operative Note Date of Service: 04/15/23 Narrative: COLONOSCOPY TILL CECUM WITH BIOPSIES Pre-op diagnosis: SURVEILLANCE FOR COLON POLYPS Post-op diagnosis:? Cecal nodule, diverticulosis Endoscopist:? Adam Crawford MD Anesthesia:?MAC Consent: Indications for the procedure and potential complications of bleeding, perforation, reaction to medications and missed diagnosis were discussed with the patient and informed consent was obtained. Instrument: Olympus PCF H 190 L variable stiffness pediatric colonoscope Monitoring: Vital signs and clinical assessment, intermittent blood pressure monitoring, continuous EKG monitoring, Pulse oximetry and Carbon Dioxide monitoring were done throughout the procedure. Please see anesthesia flowsheet. Colon withdrawl time was 19 minutes. Procedure: The patient was placed in the left lateral decubitis position and pre-procedure medications were administered. After a digital rectal examination of the ano-rectum, the video colonoscope was inserted into the rectum and advanced through the colon to the cecum. The colonoscope was slowly withdrawn in a retrograde panoramic fashion and the colon mucosa was carefully examined including a retroflexed view of the rectum. Findings and interventions are described below. Procedure Difficulty: There was narrowing of the sigmoid colon from 30 to 35 cms due to severe diverticulosis which was navigated with some difficulty. Pt was placed in the supine position to facilitate passage of the colonoscope through the area of narrowing Findings: Terminal Ileum: Not evaluated Cecum: A 10 mm benign appearing nodule adjacent to the appendicular orifice - biopsied. Ascending Colon: Moderate diverticulosis throughout the colon Transverse Colon: Moderate diverticulosis throughout the colon Descending Colon: Moderate diverticulosis throughout the colon Sigmoid Colon: Severe diverticulosis with luminal narrowing Rectum: Normal Ano-rectum: Hypertrophied anal papillae Colon preparation: Good after copious irrigation [place] Bowel Preparation Scale Right colon; 2 Transverse colon: 2 Left colon; 2 (0 = Unprepared colon segment with mucosa not seen due to solid stool that cannot be cleared. 1 = Portion of mucosa of the colon segment seen, but other areas of the colon segment not well seen due to staining, residual stool and/or opaque liquid. 2 = Minor amount of residual staining, small fragments of stool and/or opaque liquid, but mucosa of colon segment seen well. 3 = Entire mucosa of colon segment seen well with no residual staining, small fragments of stool or opaque liquid) Impression and Post Procedure Diagnosis: Colonoscopy Findings: No polyps were detected. A benign-appearing nodule in the cecum - biopsied Moderate diverticulosis seen in the entire colon Plan: Await pathology results Patient has an appointment on 04/19/23 in the [facility] with Margarita Levy NP . Repeat Colonoscopy interval based on path results - in 5 years if cecal biopsies are normal and due to a hx of adenomatous colon polyps. Above findings were reviewed with the patient and colon polyps and diverticulosis handouts were given in the discharge area BIOPSIES SHOWED: Cecum, nodule, biopsy: Colonic mucosa with mild surface hyperplastic changes
[2023-04-15 13:40] VITALS: BP 137/73; PULSE 71; RESP 16; TEMP 36.3; O2SAT 95
[2023-04-15 13:55] VITALS: BP 158/79; PULSE 61; RESP 18; TEMP 36.2; O2SAT 96
[2023-04-18 05:38] LABS: Glucose, Whole Blood 142 mg/dL (60-115)
== END 2023-04-15 14:30 | disposition home or self-care (01) ==
PROVIDERS: PCP Family Medicine; Visit Provider Internal Medicine Gastroenterology
PROC: 0DJD8ZZ Inspection of Lower Intestinal Tract, Via Natural or Artificial Opening Endoscopic (ICD-10-PCS; CPT 45378; principal; 2023-04-15 12:40)
DX: Z12.11 Encounter for screening for malignant neoplasm of colon (principal); Z86.010 Personal history of colon polyps; Z87.19 Personal history of other diseases of the digestive system; D12.0 Benign neoplasm of cecum; K57.30 Diverticulosis of large intestine without perforation or abscess without bleeding; K62.89 Other specified diseases of anus and rectum; K59.04 Chronic idiopathic constipation; K75.81 Nonalcoholic steatohepatitis (NASH); K21.9 Gastro-esophageal reflux disease without esophagitis; E13.22 Other specified diabetes mellitus with diabetic chronic kidney disease; I12.9 Hypertensive chronic kidney disease with stage 1 through stage 4 chronic kidney disease, or unspecified chronic kidney disease; N18.4 Chronic kidney disease, stage 4 (severe); Z79.84 Long term (current) use of oral hypoglycemic drugs; Z79.899 Other long term (current) drug therapy; Z79.51 Long term (current) use of inhaled steroids; Z79.82 Long term (current) use of aspirin
CPT/HCPCS: 45380; 82947; 88305; J2704

== ENCOUNTER → 2023-04-15 11:35 | Outpatient (BNV) | payer OTHER, SELFPAY | PROVIDERS: PCP Family Medicine; Visit Provider Internal Medicine Gastroenterology | DX: Z12.11 Encounter for screening for malignant neoplasm of colon (principal); Z86.010 Personal history of colon polyps; D12.0 Benign neoplasm of cecum; K57.90 Diverticulosis of intestine, part unspecified, without perforation or abscess without bleeding | CPT/HCPCS: 45380 ==

== ENCOUNTER 2023-04-19 14:02 | Outpatient (AMB) | payer OTHER, SELFPAY ==
[2023-04-19 14:07] VITALS: BP 111/60; PULSE 83; BMI 36.1
--- NOTE | 2023-04-19 14:07 | A.OFFVIS_ITS ---
Intake Vital Signs 04/19/23 14:07 Height 4 ft 8 in Weight 160 lb 14.999 oz BMI 36.1 BP 111/60 Blood Pressure Location Lt brachial Position Sitting Pulse 83 Intake Visit Reasons: 3 mnth follow up Intake Note: Patient returns to in office visit today in follow up s/p colonoscopy. CC: Patient c/o rectal irritation,abd pain, and diarrhea all day yesterday. She also believes she has a UTI because she has been having painful urination. She underwent colonoscopy on 04/15/[address] Crawford. Pediatric Dental Assistant Required: Yes Pediatric Dental Assistant Name: Justine Juares Accompanied by: Self / Same As Patient Allergies No Known Allergies [NO KNOWN ALLERGIES] Allergy (Unknown, Verified 04/19/23 14:11) UNKNOWN HPI 3 mnth follow up HPI Details Assessment & Plan (1) Diverticulitis of both large and sma ll intestine with perforation without abscess or bleeding: Code(s): K57.40 - Diverticulitis of both small and large intestine with perforation and abscess without bleeding Plan: Filipino #[place] [employer] She has not had a return of her diverticulitis attack which is fortunate. She thinks that her constipation is well controlled on her Linzess every day with 2 bisacodyl tablets although she will still have occasional left lower quadrant pain that lingers which is likely from the fact that she has a very tight area of sigmoid diverticulosis with narrowing as seen on past colonoscopies. I did mention that sometimes surgery is needed to relieve the pain to take out the severely diseased areas. She feels like she is doing well on her omeprazole 40 mg and her famotidine. I note that she seems to have advanced chronic kidney disease her last GFR seems to indicate it may be stage IV. She does not see renal specialist so I will get her referred to 1. I think this is important because if she has another attack or if she needs surgery we may need a water quality manager to appropriately manage her and make the best recommendations to promote future kidney health. Also we may need to reconsider if she should be on omeprazole and perhaps should be on something like Dexilant which is metabolized through the liver. She says that she drinks 6-8 bottles of water a day. She is agreeable to having the colonoscopy scheduled and we will use PEG prepped as that seems to be the safest for chronic renal patients. There are no prior problems with anesthesia or sedation. She denies any cardiac or respiratory problems. There are no infectious disease problems. Again she has a history of tubular adenomas that were removed in 2018 and she was supposed to have a 3 year follow-up but she was lost during COVID and then we had to resolve her diverticulitis issues before proceeding forward.. (2) Chronic idiopathic constipation: Code(s): K59.04 - Chronic idiopathic constipation (3) GERD (gastroesophageal reflux diseas e): Code(s): K21.9 - Gastro-esophageal reflux disease without esophagitis (4) Tubular adenoma of colon: Comment: 2017 scope=2 sessile TA's, severe sigmoi d diverticulosis with narrowing, repeat 3 years Code(s): D12.6 - Benign neoplasm of colon, unspecified (5) WILLETT (nonalcoholic steatohepatitis): Comment: 10/2018 ELIZ pos at 1:80 homogenous, autoimmune work up negative, feritin wnl, AFP 2.0, LFT s wnl, NIDDM and overweight LABS: 12/2019 LIVER PANEL IS NORMAL, ALPHA FETOPROTEIN IS 2.3, * ULTRASOUND OF THE ABDOMEN 12/2019 Echogenic liver probably representing fatty infiltration. Limited visualization of the pancreas. * 12/16/2000/05/21 [id number] Total Bilirubin 0.2 Direct Bilirubin < 0.2 AST 10 ALT 8 Alkaline Phosphatase 109 D Tumor Marker AFP 2.3 * US ABD 08/06/20 IMPRESSION: Diffuse hepatic steatosis without any focal lesion. ? There is mild pelvic fullness. ? Visualized liver, gallbladder and common bile duct appear unremarkable. Code(s): K75.81 - Nonalcoholic steatohepatitis (WILLETT) (6) Pre-op examination: Code(s): Z01.818 - Encounter for other preprocedural examination (7) CKD (chronic kidney disease) stage 4 , GFR 15-29 ml/min: Code(s): N18.4 - Chronic kidney disease, stage 4 (severe) Orders: Referrals Nephrology Referra l N18.4 - Chronic ki dney disease, stag e 4 (severe) Medications: New peg 3350-electroly paras 236-22.74-6.74 -5.86 gram (Golyt paul) until feca l effluent is delmy r; do not exceed a total volume of 2 ,000 mL 240 mL PO Q10M 1 day 4,000 mL 0RF Z12.11 - Encounter for screening for malignant neoplas m of colon Refilled methylcellulose (w ith sugar) (Citruc el (sucrose) oral powder) 1 tbsp PO BID 850 grams 6RF omeprazole 40 mg PO DAILY 30 caps 6RF K21.9 - Gastro-eso phageal reflux dis ease without esoph agitis linaclotide (Linze ss) 290 mcg PO QAM 30 days 30 caps 6RF K59.04 - Chronic i diopathic constipa tion docusate sodium (C olace) 100 mg PO DAILY 3 0 days 30 caps 6RF K59.04 - Chronic i diopathic constipa tion bisacodyl (Dulcola x (bisacodyl)) 10 mg (2 x 5 mg) P O BEDTIME 30 days 60 tabs 6RF K59.04 - Chronic i diopathic constipa tion simethicone (Gas R elief (simethicone )) 180 mg PO BID 30 days 60 caps 6RF R14.0 - Abdominal distension (gaseou s) COLONOSCOPY 04/15/23 Findings: Terminal Ileum: Not evaluated Cecum: A 10 mm benign appearing nodule adjacent to the appendicular orifice - biopsied. Ascending Colon: Moderate diverticulosis throughout the colon Transverse Colon: Moderate diverticulosis throughout the colon Descending Colon: Moderate diverticulosis throughout the colon Sigmoid Colon: Severe diverticulosis with luminal narrowing Rectum: Normal Ano-rectum: Hypertrophied anal papillae Colon preparation: Good after copious irrigation Impression and Post Procedure Diagnosis: Colonoscopy Findings: No polyps were detected. A benign-appearing nodule in the cecum - biopsied Moderate diverticulosis seen in the entire colon Plan: Await pathology results Patient has an appointment on 04/19/23 in the [facility] with Margarita Levy NP . Repeat Colonoscopy interval based on path results - in 5 years if cecal biopsies are normal due to a hx of adenomatous colon polyps. BIOPSY Received: 04/15/23 Diagnosis Cecum, nodule, biopsy: Colonic mucosa with mild surface hyperplastic changes TODAY'S VISIT Filipino #[id number] The procedure needs to be repeated in 5 years r/t her hx of TA's. She had some diarrhea after the procedure and she is having some rectal irritation right now. The procedure was well tolerated. The results were explained and the patient is agreeable to the follow-up interval as stated. Education was provided to tell any 1st degree relatives about their findings to be sure that they are screened by age 45. Educated that they will be put on a recall list when it is time for their repeat scope but should they move out of state or away from the hospital they will need to remember along with their primary to repeat the procedure in a timely fashion to avoid any adverse complications. She has had diarrhea for 2 days and she does not know why. She denies any fever/chills or N/V. I also educate her to stop her Linzess and bisaodyl while she has diarrhea. Then she says the diarrhea has stopped and she is eating a light diet of soups and coffee. she has a very tight area of sigmoid diverticulosis with narrowing as seen on past colonoscopies. I did mention that sometimes surgery is needed to relieve the pain to take out the severely diseased areas. She feels like she is doing well on her omeprazole 40 mg and her famotidine ROV 3 weeks. [facility] Medical History Chronic kidney disease Diabetes 1.5, managed as type 2 HTN (hypertension) KIRSTIE (stress urinary incontinence, female) Urge incontinence Dysuria Chronic idiopathic constipation GERD (gastroesophageal reflux disease) Irritable bowel syndrome with constipation Surgical History H/O tubal ligation Hx of section H/O: hysterectomy History of esophagogastroduodenoscopy (EGD) Hx of colonoscopy Family History Father Family hx of prostate cancer Cancer Brother Cancer Mother HTN (hypertension) Maternal Aunt Skin cancer, Onset Age: 59 Social History Household Members: None Alcohol intake: never Patient Tobacco Use Status: Never used Tobacco Current occupational status: disabled Female Reproductive History Menstrual Age of Menarche: 12 Review of Systems Const Denies fatigue, Denies fever(s), Denies night sweats, Denies poor appetite and Denies weight loss ENT Reports Normal hearing present, Denies dental pain, Denies dysphagia, Denies hearing loss, Denies mouth pain, Denies odynophagia, Denies throat swelling, Denies tongue swelling and Reports other (Dentition adequate) Card Reports no additional complaints Resp Reports no additional complaints GI Denies abdominal pain, Denies melena, Denies bloating, Denies hematochezia, Denies constipation, Reports GI cramping, Denies dysphagia, Denies excessive flatus, Denies early satiety, Reports heartburn, Reports diarrhea, Denies nausea, Denies odynophagia, Denies vomiting and Denies hematemesis Skin/Breast Denies pruritus, Denies lesions, Denies rash and Denies jaundice Neuro Reports Normal hearing present and Denies Abnormal speech present Endo Denies fatigue Aller/Immun Denies throat swelling and Denies tongue swelling Physical Exam Vital Signs: Last Vital Signs Pulse 83 04/19/23 14:07 BP 111/60 04/19/23 14:07 BMI result Body Mass Index 36.1 Const General: cooperative, no acute distress, well developed and well groomed Nutritional Appearance: well nourished and obese Orientation/consciousness: oriented to person, oriented to place and oriented to time Limitations: language barrier HEENT Head: Yes normocephalic and Yes atraumatic Eyes General: appearance normal, both eyes and all related structures Pupils: Equal, round and reactive pupils present Neck Neck: Yes normal visual inspection and Yes no lymphadenopathy Thyroid: Thyroid normal Resp Effort & Inspection: normal respiratory effort and able to speak in complete sentences Auscultation: clear to auscultation bilaterally Cardio Rate: regular rate Rhythm: regular rhythm Heart sounds: Normal, physiologic split S2 sound present Peripheral pulses: radial pulses present and posterior tibial pulses present GI Inspection: No distended, Yes Abdominal panniculus present and Yes obesity Palpation (GI): Soft to palpation, nontender, no guarding, not rigid and No hepatosplenomegaly present Percussion: Yes normal to percussion Auscultation: normal bowel sounds Rectal Exam - Female: deferred Skin General skin exam: no rashes or lesions noted, turgor normal, skin not dry, no jaundice, No spider nevi and no striae Rashes: no rashes Nails: normal Neuro General: oriented to person, oriented to place and oriented to time Cranial nerves: Yes Equal, round and reactive pupils present and Yes Normal hearing present Speech: No Abnormal speech present Extrem General: Yes normal to inspection, No clubbing, No cyanosis and No edema Psych Appearance: grossly normal and well kempt Mental Status: mental status grossly normal Speech and movement: Normal speech and movement present Affect: normal affect Attitude: cooperative Thought process: Normal thought process present and not confabulating Thought content: Normal thought content present Insight: Limited insight present (Psych) Judgement: Limited judgement present (Psych) Results Reviewed Results Reviewed: COLONOSCOPY 04/15/23 Findings: Terminal Ileum: Not evaluated Cecum: A 10 mm benign appearing nodule adjacent to the appendicular orifice - biopsied. Ascending Colon: Moderate diverticulosis throughout the colon Transverse Colon: Moderate diverticulosis throughout the colon Descending Colon: Moderate diverticulosis throughout the colon Sigmoid Colon: Severe diverticulosis with luminal narrowing Rectum: Normal Ano-rectum: Hypertrophied anal papillae Colon preparation: Good after copious irrigation Impression and Post Procedure Diagnosis: Colonoscopy Findings: No polyps were detected. A benign-appearing nodule in the cecum - biopsied Moderate diverticulosis seen in the entire colon Plan: Await pathology results Patient has an appointment on 04/19/23 in the GI Clinic with Margarita Levy NP . Repeat Colonoscopy interval based on path results - in 5 years if cecal biopsies are normal due to a hx of adenomatous colon polyps. BIOPSY Received: 04/15/23 Diagnosis Cecum, nodule, biopsy: Colonic mucosa with mild surface hyperplastic changes Assessment & Plan Assessment & Plan (1) Tubular adenoma of colon: Comment: 04/2023 scope= hyperplastic polyp repeat in 5 years; 2018 scope=2 sessile TA's, severe sigmoid diverticulosis with narrowing, repeat 3 years Code(s): D12.6 - Benign neoplasm of colon, unspecified (2) Acute diarrhea: Code(s): R19.7 - Diarrhea, unspecified (3) Chronic idiopathic constipation: Code(s): K59.04 - Chronic idiopathic constipation (4) GERD (gastroesophageal reflux disease): Code(s): K21.9 - Gastro-esophageal reflux disease without esophagitis Plan Filipino #[id number] The procedure needs to be repeated in 5 years r/t her hx of TA's. She had some diarrhea after the procedure and she is having some rectal irritation right now. The procedure was well tolerated. The results were explained and the patient is agreeable to the follow-up interval as stated. Education was provided to tell any 1st degree relatives about their findings to be sure that they are screened by age 45. Educated that they will be put on a recall list when it is time for their repeat scope but should they move out of state or away from the hospital they will need to remember along with their primary to repeat the procedure in a timely fashion to avoid any adverse complications. She has had diarrhea for 2 days and she does not know why. She denies any fever/chills or N/V. I also educate her to stop her Linzess and bisaodyl while she has diarrhea. Then she says the diarrhea has stopped and she is eating a light diet of soups and coffee. she has a very tight area of sigmoid diverticulosis with narrowing as seen on past colonoscopies. I did mention that sometimes surgery is needed to relieve the pain to take out the severely diseased areas. She feels like she is doing well on her omeprazole 40 mg and her famotidine ROV 3 weeks. Coding Level of Care Code Est Pt Level 3 (89514) Diagnoses Tubular adenoma of colon D12.6 Acute diarrhea R19.7 Chronic idiopathic constipation K59.04 GERD (gastroesophageal reflux disease) K21.9
== END 2023-04-19 15:00 ==
PROVIDERS: PCP Family Medicine; Visit Provider Nurse Practitioner
DX: D12.6 Benign neoplasm of colon, unspecified (principal); R19.7 Diarrhea, unspecified; K59.04 Chronic idiopathic constipation; K21.9 Gastro-esophageal reflux disease without esophagitis
CPT/HCPCS: 99213

== ENCOUNTER → 2023-04-19 14:02 | Outpatient (BNVA) | payer OTHER, SELFPAY | PROVIDERS: PCP Family Medicine; Visit Provider Nurse Practitioner | DX: K57.30 Diverticulosis of large intestine without perforation or abscess without bleeding (principal); R19.7 Diarrhea, unspecified; K59.04 Chronic idiopathic constipation; K21.9 Gastro-esophageal reflux disease without esophagitis; Z86.010 Personal history of colon polyps; Z98.890 Other specified postprocedural states | CPT/HCPCS: 99212 ==

== ENCOUNTER 2023-04-25 13:46 | Outpatient (AMB) | payer OTHER, SELFPAY ==
[2023-04-25 14:02] VITALS: BP 110/70; PULSE 85; O2SAT 96; BMI 36.0
--- NOTE | 2023-04-25 14:02 | HO.NEPHOV ---
HPI HPI Comments History of Present Illness Details Wen is a middle-aged woman with history of longstanding hypertension along with diabetes mellitus was had mild chronic kidney disease. Baseline serum creatinine is around 1.2-1.2 mg/dL. In January 2023 creatinine peaked to 1.99. She is on lisinopril 40 mg along with chlorthalidone 50 mg. She has been taking meloxicam 7.5 mg and Naprosyn 500 mg almost on a regular basis. She continues her dysuria. She has longstanding history of constipation and she has been followed by Gastroenterology. 04/25/23 c/o Back pain No dysuria Takes tylenol [facility] Medical History (Updated 04/25/23 @ 14:27 by Juan C Silver MD) Dysuria Chronic kidney disease Diabetes 1.5, managed as type 2 HTN (hypertension) KIRSTIE (stress urinary incontinence, female) Urge incontinence Chronic idiopathic constipation GERD (gastroesophageal reflux disease) Irritable bowel syndrome with constipation Surgical History H/O tubal ligation Hx of section H/O: hysterectomy History of esophagogastroduodenoscopy (EGD) Hx of colonoscopy Family History Father Family hx of prostate cancer Cancer Brother Cancer Mother HTN (hypertension) Maternal Aunt Skin cancer, Onset Age: 59 Social History Household Members: None Alcohol intake: never Patient Tobacco Use Status: Never used Tobacco Current occupational status: disabled Female Reproductive History Menstrual Age of Menarche: 12 Vital Signs 04/25/23 14:02 Height 4 ft 8 in Weight 160 lb 8 oz BMI 36.0 BP 110/70 Blood Pressure Location Lt brachial Position Sitting Pulse 85 Pulse Source Pulse Oximeter Pulse Oximetry (%) 96 Oxygen Delivery Method Room Air Physical Exam Vital Signs: Last Vital Signs Pulse 85 04/25/23 14:02 BP 110/70 04/25/23 14:02 Pulse Ox 96 04/25/23 14:02 Oxygen Delivery Method Room Air 04/25/23 14:02 BMI result Body Mass Index 36.0 Const General: comfortable Nutritional Appearance: well nourished Orientation/consciousness: patient oriented x3 HEENT Head: No normal to inspection Mouth: moist mucous membranes Neck Neck: Yes supple and Yes no JVD Resp Auscultation: clear to auscultation bilaterally, no rales and rub present Cardio Jugular venous distension: no JVD Palpation: no palpable S3 and no palpable S4 Heart sounds: no rubs GI Palpation (GI): Soft to palpation and nontender Percussion: No Fluid wave present General: Yes no CVA tenderness Back/Spine/Pelvis Back: no CVA tenderness Skin General skin exam: no rashes or lesions noted Neuro General: patient oriented x3 Extrem General: Yes no pedal edema and No clubbing Assessment & Plan Assessment & Plan (1) Chronic kidney disease: Code(s): N18.9 - Chronic kidney disease, unspecified Qualifiers: Chronic kidney disease stage 3 subtype: stage 3b (GFR 30-44) (2) HTN (hypertension): Code(s): I10 - Essential (primary) hypertension (3) Dysuria: Code(s): R30.0 - Dysuria Plan Wen has FRANTZ superimposed on chronic disease. 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 She has no significant proteinuria therefore diabetic nephropathy seems unlikely. Recent imaging did not reveal any evidence of obstruction. Based on the recent urine studies I do not believe she has any active glomerulonephritis or interstitial disease at this time. Acute kidney injury is most likely due to hypoperfusion from the combination of high-dose of Jonh inhibitors with diuretics along with NSAIDs. AVOID both Naprosyn and meloxicam. Recheck renal function Avoid hypotension. Orders: Orders UA and rflx microscopic Today I10 - Essential (primary) hypertension, R30.0 - Dysuria Electrolytes Today I10 - Essential (primary) hypertension, R30.0 - Dysuria Calcium Today I10 - Essential (primary) hypertension, R30.0 - Dysuria Blood Urea Nitrogen Today I10 - Essential (primary) hypertension, R30.0 - Dysuria Creatinine Today I10 - Essential (primary) hypertension, R30.0 - Dysuria Coding Level of Care Code Est Pt Level 4 (44658) Diagnoses Chronic kidney disease N18.9 Chronic kidney disease stage 3 subtype: stage 3b (GFR 30-44) HTN (hypertension) I10 Dysuria R30.0 Results Reviewed Nephrology Results: Sodium 140 mmol/L (135-145) 02/21/23 Potassium 4.8 mmol/L (3.3-5.1) 02/21/23 Chloride 110 mmol/L (96-108) H 02/21/23 Carbon Dioxide 24 mmol/L (22-29) 02/21/23 BUN 37 mg/dL (9-16) H 02/21/23 Creatinine 1.51 mg/dL (0.5-1.4) H 02/21/23 Calcium 9.8 mg/dL (8.4-10.2) 02/21/23 Urine Protein Negative mg/dL (Neg-Trace) 03/25/23 Urine Creatinine 62.81 mg/dL 02/21/23
== END 2023-04-25 14:29 | disposition home or self-care (01) ==
PROVIDERS: PCP Family Medicine; Visit Provider Internal Medicine Hypertension Specialist
DX: I12.9 Hypertensive chronic kidney disease with stage 1 through stage 4 chronic kidney disease, or unspecified chronic kidney disease (principal); N18.9 Chronic kidney disease, unspecified; R30.0 Dysuria
CPT/HCPCS: 99214

== ENCOUNTER → 2023-04-25 13:46 | Outpatient (BNVA) | payer OTHER, SELFPAY | PROVIDERS: PCP Family Medicine; Visit Provider Internal Medicine Hypertension Specialist | DX: I12.9 Hypertensive chronic kidney disease with stage 1 through stage 4 chronic kidney disease, or unspecified chronic kidney disease (principal); N18.9 Chronic kidney disease, unspecified; R30.0 Dysuria | CPT/HCPCS: 99212 ==

== ENCOUNTER 2023-09-08 11:20 | Outpatient (AMB) | payer OTHER, SELFPAY ==
[2023-09-08 11:25] VITALS: BP 118/70; PULSE 99; O2SAT 93; BMI 36.5
--- NOTE | 2023-09-08 11:25 | HO.NEPHOV ---
Vital Signs 09/08/23 11:25 Height 4 ft 8 in Weight 163 lb BMI 36.5 BP 118/70 Blood Pressure Location Rt brachial Position Sitting Pulse 99 Pulse Source Pulse Oximeter Pulse Oximetry (%) 93 Oxygen Delivery Method Room Air Intake Visit Reasons: R/S 08/30/23/ Conf Brine Room Laborer Required: Yes Brine Room Laborer Name: Jasson [id number] Accompanied by: Self / Same As Patient Allergies No Known Allergies [NO KNOWN ALLERGIES] Allergy (Unknown, Verified 09/08/23 11:27) UNKNOWN Medication List - Last Reconciled 09/08/23 by Juan C Silver MD acetaminophen ER 650 mg PO Q8H PRN amlodipine 5 mg PO DAILY aripiprazole 2 mg PO DAILY aspirin (Adult Aspirin Regimen) 81 mg PO DAILY atorvastatin 80 mg PO DAILY chlorthalidone 50 mg PO DAILY cholecalciferol (vitamin D3) (Vitamin D3) 25 mcg PO QAM clonidine HCl 0.1 mg PO BID conjugated estrogens (Premarin) 0 mg vaginal cyclobenzaprine 5 mg PO Q8H PRN 5 days dicyclomine 20 mg PO TID docusate sodium (Colace) 100 mg PO DAILY 30 days fluoxetine 60 mg PO QAM fluticasone propionate 220 mcg/actuation (Flovent HFA) 220 mcg inhalation ONCE glipizide 5 mg PO BID hydralazine 25 mg PO DAILY levothyroxine 50 mcg PO QAM linaclotide (Linzess) 290 mcg PO QAM 30 days magnesium oxide 400 mg PO DAILY 7 days methylcellulose (with sugar) (Citrucel (sucrose) oral powder) 1 tbsp PO BID mirtazapine 45 mg PO BEDTIME naproxen 500 mg PO BID PRN 10 days omeprazole 40 mg PO DAILY oxybutynin chloride ER 5 mg PO DAILY oxycodone 5 mg PO BID PRN prazosin 1 mg PO BEDTIME quetiapine ER 150 mg PO BEDTIME PRN sennosides (senna) 17.2 mg PO DAILY simethicone (Gas Relief (simethicone)) 180 mg PO BID 30 days HPI Comments Details: Wen is a middle-aged woman with history of longstanding hypertension along with diabetes mellitus was had mild chronic kidney disease. Baseline serum creatinine is around 1.2-1.2 mg/dL. In January 2023 creatinine peaked to 1.99. She is on lisinopril 40 mg along with chlorthalidone 50 mg. She has been taking meloxicam 7.5 mg and Naprosyn 500 mg almost on a regular basis. She continues her dysuria. She has longstanding history of constipation and she has been followed by Gastroenterology. 09/08/23: says she is anxious Interpretor service was used [facility] Medical History (Updated 04/25/23 @ 14:27 by Juan C Silver MD) Dysuria Chronic kidney disease Diabetes 1.5, managed as type 2 HTN (hypertension) KIRSTIE (stress urinary incontinence, female) Urge incontinence Chronic idiopathic constipation GERD (gastroesophageal reflux disease) Irritable bowel syndrome with constipation Surgical History H/O tubal ligation Hx of section H/O: hysterectomy History of esophagogastroduodenoscopy (EGD) Hx of colonoscopy Family History Father Family hx of prostate cancer Cancer Brother Cancer Mother HTN (hypertension) Maternal Aunt Skin cancer, Onset Age: 59 Social History Household Members: None Alcohol intake: never Patient Tobacco Use Status: Never used Tobacco Current occupational status: disabled Female Reproductive History Menstrual Age of Menarche: 12 Physical Exam Vital Signs: Last Vital Signs Pulse 99 09/08/23 11:25 BP 118/70 09/08/23 11:25 Pulse Ox 93 09/08/23 11:25 Oxygen Delivery Method Room Air 09/08/23 11:25 BMI result Body Mass Index 36.5 Const General: comfortable Nutritional Appearance: well nourished Orientation/consciousness: patient oriented x3 HEENT Head: No normal to inspection Mouth: moist mucous membranes Neck Neck: Yes supple and Yes no JVD Resp Auscultation: clear to auscultation bilaterally, no rales and rub present Cardio Jugular venous distension: no JVD Palpation: no palpable S3 and no palpable S4 Heart sounds: no rubs GI Palpation (GI): Soft to palpation and nontender Percussion: No Fluid wave present General: Yes no CVA tenderness Back/Spine/Pelvis Back: no CVA tenderness Skin General skin exam: no rashes or lesions noted Neuro General: patient oriented x3 Extrem General: Yes no pedal edema and No clubbing Results Reviewed Nephrology Results: Urine Protein Negative mg/dL (Neg-Trace) 03/25/23 Assessment & Plan Assessment & Plan (1) Chronic kidney disease: Code(s): N18.9 - Chronic kidney disease, unspecified Category: Medical Qualifiers: Chronic kidney disease stage 3 subtype: stage 3b (GFR 30-44) (2) HTN (hypertension): Code(s): I10 - Essential (primary) hypertension Category: Medical (3) Dysuria: Code(s): R30.0 - Dysuria Category: Medical Plan . Wen has FRANTZ superimposed on chronic disease. 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 She has no significant proteinuria therefore diabetic nephropathy seems unlikely. Recent imaging did not reveal any evidence of obstruction. Based on the recent urine studies I do not believe she has any active glomerulonephritis or interstitial disease at this time. Acute kidney injury is most likely due to hypoperfusion from the combination of high-dose of Jonh inhibitors with diuretics along with NSAIDs. AVOID both Naprosyn and meloxicam. Recheck renal function Avoid hypotension. Orders: Orders Basic Metabolic Panel Today I10 - Essential (primary) hypertension, N18.9 - Chronic kidney disease, unspecified Creatinine Urine Today I10 - Essential (primary) hypertension, N18.9 - Chronic kidney disease, unspecified Comprehensive Met. Panel Today I10 - Essential (primary) hypertension, N18.9 - Chronic kidney disease, unspecified Total Protein Urine Random Today I10 - Essential (primary) hypertension, N18.9 - Chronic kidney disease, unspecified UA and rflx microscopic Today I10 - Essential (primary) hypertension, N18.9 - Chronic kidney disease, unspecified Coding Level of Care Code Est Pt Level 4 (60276) Diagnoses Chronic kidney disease N18.9 Chronic kidney disease stage 3 subtype: stage 3b (GFR 30-44) HTN (hypertension) I10 Dysuria R30.0
== END 2023-09-08 11:56 | disposition home or self-care (01) ==
PROVIDERS: PCP Family Medicine; Visit Provider Internal Medicine Hypertension Specialist
DX: I12.9 Hypertensive chronic kidney disease with stage 1 through stage 4 chronic kidney disease, or unspecified chronic kidney disease (principal); E11.22 Type 2 diabetes mellitus with diabetic chronic kidney disease; N18.32 Chronic kidney disease, stage 3b; R30.0 Dysuria
CPT/HCPCS: 99214

== ENCOUNTER 2023-09-08 11:20 | Outpatient (REF) | payer OTHER, SELFPAY ==
[2023-09-08 13:09] LABS: Alanine Aminotransferase 12 U/L (0-31); Albumin Level 4.5 g/dL (3.5-5.0); Alkaline Phosphatase 114 U/L (39-117); Anion Gap 15 (12-20); Aspartate Amino Transferase 12 U/L (5-31); Bilirubin Total 0.2 mg/dL (0.0-1.0); Blood Urea Nitrogen 44 mg/dL (9-16); Calcium 10.7 mg/dL (8.4-10.2); Carbon Dioxide 23 mmol/L (22-29); Chloride 107 mmol/L (96-108); Estimated Glomerular Filt Rate 34; Glucose Random 286 mg/dL (60-115); Sodium 140 mmol/L (135-145); Total Protein 8.1 g/dL (6.5-8.0)
== END 2023-09-08 11:21 | disposition home or self-care (01) ==
LOC: HO.LAB 11:20
PROVIDERS: PCP Family Medicine; Visit Provider Internal Medicine Hypertension Specialist
DX: Z13.89 Encounter for screening for other disorder (principal)
CPT/HCPCS: 36415; 80053; 99212

== ENCOUNTER 2023-09-08 19:21 | Emergency (ER) | payer OTHER, SELFPAY ==
--- NOTE | ~2023-09-08 | XR_ITS ---
EXAMINATION: XR CHEST CLINICAL INFORMATION: Palpitations. COMPARISON: Chest radiograph 07/07/2018. TECHNIQUE: 2 views of the chest were obtained. FINDINGS: Stable prominence of the cardiomediastinal silhouette. Slightly increased diffuse interstitial markings. No dense consolidation, pleural effusion or pneumothorax. No acute osseous findings. Visualized upper abdomen is within normal limits. XR/XR chest 2V IMPRESSION: Slightly increased interstitial markings which could be seen with asthma, bronchitis, reactive airways disease or atypical infections.
[2023-09-08 19:34] VITALS: BP 182/74; PULSE 86; RESP 17; TEMP 36.2; O2SAT 96; BMI 35.8
--- NOTE | 2023-09-08 19:40 | ED_ITS ---
HPI - General Adult General Chief complaint: General Medical Stated complaint: Anxiety/took meds Time Seen by Provider: 09/08/23 22:50 Source: patient Mode of arrival: ambulatory Limitations: no limitations History of Present Illness ED Provider: carlyn CONTRERAS narrative: Patient history of anxiety discharge from [facility] after stay for few days last week from 08/27 still 08/31 comes here as he feeling very anxious with heart beating fast Klonopin dose was decreased from twice daily to once a day Related Data Home Medications ?Medication ?Instructions ?Recorded ?Confirmed aspirin 81 mg tablet,delayed 81 mg PO DAILY 06/10/20 09/08/23 release (Adult Aspirin Regimen) aripiprazole 2 mg tablet 2 mg PO DAILY 03/23/21 09/08/23 chlorthalidone 50 mg tablet 50 mg PO DAILY 03/23/21 09/08/23 fluoxetine 20 mg capsule 60 mg PO QAM 03/23/21 09/08/23 mirtazapine 45 mg tablet 45 mg PO BEDTIME 03/23/21 09/08/23 cholecalciferol (vitamin D3) 25 25 mcg PO QAM 08/04/22 09/08/23 mcg (1,000 unit) capsule (Vitamin D3) conjugated estrogens 0.625 mg/gram 0 mg vaginal 08/04/22 08/06/22 vaginal cream (Premarin) levothyroxine 50 mcg tablet 50 mcg PO QAM 08/04/22 09/08/23 prazosin 1 mg capsule 1 mg PO BEDTIME 08/04/22 09/08/23 fluticasone propionate 220 220 mcg inhalation ONCE 12/29/22 09/08/23 mcg/actuation HFA aerosol inhaler (Flovent HFA) atorvastatin 80 mg tablet 80 mg PO DAILY 04/19/23 09/08/23 clonidine HCl 0.1 mg tablet 0.1 mg PO BID 04/19/23 09/08/23 glipizide 5 mg tablet 5 mg PO BID 04/19/23 09/08/23 omeprazole 40 mg capsule,delayed 40 mg PO DAILY 04/19/23 09/08/23 release oxybutynin chloride 5 mg 5 mg PO DAILY 04/19/23 09/08/23 tablet,extended release 24 hr hydralazine 25 mg tablet 25 mg PO DAILY 04/25/23 09/08/23 quetiapine 150 mg tablet,extended 150 mg PO BEDTIME PRN 04/25/23 09/08/23 release 24 hr amlodipine 5 mg tablet 5 mg PO DAILY 09/08/23 09/08/23 oxycodone 5 mg tablet 5 mg PO BID PRN 09/08/23 09/08/23 sennosides 8.6 mg tablet (senna) 17.2 mg PO DAILY 09/08/23 09/08/23 Previous Rx's ?Medication ?Instructions ?Recorded magnesium oxide 400 mg PO DAILY 7 days #7 caps 04/08/20 cyclobenzaprine 5 mg tablet 5 mg PO Q8H PRN pain (scale score 05/28/20 7-10) 5 days #14 tabs naproxen 500 mg tablet 500 mg PO BID PRN pain 10 days #20 05/28/20 tabs acetaminophen 650 mg 650 mg PO Q8H PRN pain #20 tabs 11/19/20 tablet,extended release docusate sodium 100 mg capsule 100 mg PO DAILY 30 days #30 caps 01/20/23 (Colace) methylcellulose (with sugar) oral 1 tbsp PO BID #850 grams 01/20/23 powder (Citrucel (sucrose) oral powder) simethicone 180 mg capsule (Gas 180 mg PO BID 30 days #60 caps 01/20/23 Relief (simethicone)) dicyclomine 20 mg tablet 20 mg PO TID #270 tabs 07/15/23 linaclotide 290 mcg capsule 290 mcg PO QAM 30 days #30 caps 08/19/23 (Linzess) magnesium oxide 400 mg PO DAILY #30 tabs 09/09/23 Allergies Allergy/AdvReac Type Severity Reaction Status Date / Time No Known Allergies Allergy Unknown UNKNOWN Verified 09/08/23 19:35 [NO KNOWN ALLERGIES] Review of Systems 2 Review of Systems: Yes all other systems are reviewed and are negative PMFSH Past Medical History Medical History Dysuria Chronic kidney disease Diabetes 1.5, managed as type 2 HTN (hypertension) KIRSTIE (stress urinary incontinence, female) Urge incontinence Chronic idiopathic constipation GERD (gastroesophageal reflux disease) Irritable bowel syndrome with constipation Surgical History H/O tubal ligation Hx of section H/O: hysterectomy History of esophagogastroduodenoscopy (EGD) Hx of colonoscopy Family History Family History Father Family hx of prostate cancer Cancer Brother Cancer Mother HTN (hypertension) Maternal Aunt Skin cancer, Onset Age: 59 Social History Social History Household Members: None Alcohol intake: never Patient Tobacco Use Status: Never used Tobacco Advance Directives: No Advance Directives Information Provided: No Do you have a plan to hurt others: No Plan Current occupational status: disabled Physical Exam ED Vital Signs: Vital Signs - 24 hr 09/08/23 19:34 09/09/23 00:49 Temperature 97.1 F 98.2 F Pulse Rate 86 81 Respiratory Rate 17 16 Blood Pressure 182/74 H 189/76 H Pulse Oximetry 96 96 Oxygen Delivery Method Room Air Room Air BMI result Body Mass Index 35.8 Appearance: Alert. Oriented X3. No acute distress. anxious Eyes: PERRLA, No Nystagmus ENT: Pharynx normal. Oral Mucosa moist Neck: Normal inspection. Neck supple. CVS: Normal heart rate and rhythm. Pulses normal. Respiratory: No respiratory distress. Equal air entry bilateral, no wheezing/rales/rhonchi Abdomen: Soft and nontender. Bowel sounds are present, no mass palpable, no CVA tenderness Skin: Skin warm and dry. Normal skin color. Normal skin turgor. Extremities: No lower extremity edema. No calf tenderness Neuro: Oriented X 3. No motor deficit. No sensory deficit.No cerebellar signs , cranial nerves II-XII intact Medications Administered Discontinued Medications Generic Name Dose Route Start Last Admin Trade Name Freq PRN Reason Stop Dose Admin Clonazepam 1 mg 09/08/23 23:06 09/09/23 00:45 Clonazepam 1 Mg Tablet PO 09/08/23 23:07 1 mg ONCE ONE Administration Magnesium Oxide 800 mg 09/08/23 23:06 09/09/23 00:45 Magnesium Oxide 400 Mg Tablet PO 09/08/23 23:07 800 mg ONCE ONE Administration Medical Decision Making Medical Decision Making MDM Narrative: Patient's anxiety workup is negative for any acute pathology patient is on Klonopin will continue same magnesium slightly low to 1.4 will give the replacement magnesium Lab Data [facility] Lab Attestation statement: I reviewed the patient's lab results. 09/08/23 20:09 09/08/23 20:09 Labs: Lab Results 09/08/23 09/09/23 Range/Units 20:09 01:14 WBC 11.3 H (4.8-10.8) X10*3/uL RBC 4.21 (4.20-5.50) X10*6/uL Hgb 11.7 L (12.0-16.0) g/dl Hct 37.4 (37.0-47.0) % MCV 88.8 (80.0-98.0) fL MCH 27.8 (27.0-33.0) pg MCHC 31.3 (31.0-35.0) g/dl RDW 14.3 (11.0-16.0) % Plt Count 224 (160-400) X10*3/uL MPV 10.8 (9.4-12.3) fL Immature Gran % (Auto) 0.4 (0.0-0.4) % Neut % (Auto) 67.3 (45-73) % Lymph % (Auto) 24.2 (20-40) % Stark % (Auto) 6.8 (2-11) % Eos % (Auto) 0.9 (0-4) % Baso % (Auto) 0.4 (0-2) % Lymph # (Auto) 2.7 (1.2-4.9) X10*3/uL Stark # (Auto) 0.8 (0.1-1.2) X10*3/uL Eos # (Auto) 0.1 (0.0-0.4) X10*3/uL Baso # (Auto) 0.0 (0.0-0.2) X10*3/uL Abs Immat Gran (auto) 0.04 H (0.00-0.03) X10*3/uL Absolute Neuts (auto) 7.6 (2.0-8.3) x10*3/uL Absolute Nucleated RBC 0.000 (0.0-0.012) X10*3/uL Nucleated RBC % (auto) 0.0 (0.0-0.2) /100WBC Sodium 141 (135-145) mmol/L Potassium 4.4 (3.3-5.1) mmol/L Chloride 107 (96-108) mmol/L Carbon Dioxide 21 L (22-29) mmol/L Anion Gap 17 (12-20) BUN 39 H (9-16) mg/dL Creatinine 1.41 H (0.5-1.4) mg/dL Estim Creat Clear Calc 26.6 Estimated GFR 37 Random Glucose 146 H (60-115) mg/dL Calcium 10.5 H (8.4-10.2) mg/dL Magnesium 1.4 L* (1.6-2.6) mg/dL Total Bilirubin 0.3 (0.0-1.0) mg/dL AST 11 (5-31) U/L ALT 11 (0-31) U/L Alkaline Phosphatase 121 H (39-117) U/L Troponin I High Sens 3.5 (<3.5-17.0) ng/L Total Protein 8.1 H (6.5-8.0) g/dL Albumin 4.6 (3.5-5.0) g/dL Lipase 10 (8-78) U/L Urine Color Yellow Urine Appearance Clear Urine pH 5.5 (5.0-9.0) Ur Specific Edelstein 1.015 (1.005-1.025) Urine Protein Negative (Neg-Trace) mg/dL Urine Glucose (UA) Negative (Negative) mg/dL Urine Ketones Negative (Negative) mg/dL Urine Blood Negative (Negative) Urine Nitrite Negative (Negative) Ur Leukocyte Esterase Negative (Negative) Discharge Plan Discharge Clinical Impression: Anxiety, Hypomagnesemia Patient Disposition: Home, Self-Care Instructions: Hypomagnesemia (ED), Anxiety (ED) Additional Instructions: Continue taking medication Klonopin 2 mg every night for anxiety Take magnesium tablets daily Follow up with your PCP Prescriptions: New magnesium oxide 400 mg magnesium tablet 400 mg PO DAILY Qty: 30 0RF No Action dicyclomine 20 mg tablet 20 mg PO TID Qty: 270 2RF Linzess 290 mcg capsule 290 mcg PO QAM 30 Days Qty: 30 6RF magnesium oxide 400 mg magnesium capsule 400 mg PO DAILY 7 Days Qty: 7 0RF naproxen 500 mg tablet 500 mg PO BID PRN (Reason: pain) 10 Days Qty: 20 0RF cyclobenzaprine 5 mg tablet 5 mg PO Q8H PRN (Reason: pain (scale score 7-10)) 5 Days Qty: 14 0RF acetaminophen 650 mg tablet extended release 650 mg PO Q8H PRN (Reason: pain) Qty: 20 0RF aspirin [Adult Aspirin Regimen] 81 mg tablet,delayed release (DR/EC) 81 mg PO DAILY chlorthalidone 50 mg tablet 50 mg PO DAILY aripiprazole 2 mg tablet 2 mg PO DAILY fluoxetine 20 mg capsule 60 mg PO QAM mirtazapine 45 mg tablet 45 mg PO BEDTIME Flovent HFA 220 mcg/actuation HFA aerosol inhaler 220 mcg inhalation ONCE amlodipine 5 mg tablet 5 mg PO DAILY oxycodone 5 mg tablet 5 mg PO BID PRN sennosides [senna] 8.6 mg tablet 17.2 mg PO DAILY cholecalciferol (vitamin D3) [Vitamin D3] 25 mcg (1,000 unit) capsule 25 mcg PO QAM prazosin 1 mg capsule 1 mg PO BEDTIME Premarin 0.625 mg/gram cream 0 mg vaginal levothyroxine 50 mcg tablet 50 mcg PO QAM hydralazine 25 mg tablet 25 mg PO DAILY docusate sodium [Colace] 100 mg capsule 100 mg PO DAILY 30 Days Qty: 30 6RF Citrucel (sucrose) Powder 1 tbsp PO BID Qty: 850 6RF simethicone [Gas Relief (simethicone)] 180 mg capsule 180 mg PO BID 30 Days Qty: 60 6RF omeprazole 40 mg capsule,delayed release(DR/EC) 40 mg PO DAILY oxybutynin chloride 5 mg tablet extended release 24hr 5 mg PO DAILY clonidine HCl 0.1 mg tablet 0.1 mg PO BID atorvastatin 80 mg tablet 80 mg PO DAILY glipizide 5 mg tablet 5 mg PO BID quetiapine 150 mg tablet extended release 24 hr 150 mg PO BEDTIME PRN Print Language: Greenlandic
--- NOTE | 2023-09-08 19:40 | ECG_ITS ---
Test Reason : ANXIETY Blood Pressure : / mmHG Vent. Rate : 079 BPM Atrial Rate : 079 BPM P-R Int : 126 ms QRS Dur : 072 ms QT Int : 378 ms P-R-T Axes : 030 041 092 degrees QTc Int : 433 ms Normal sinus rhythm Nonspecific T wave abnormality Abnormal ECG When compared with ECG of 16-JUN-2021 19:51, Inverted T waves have replaced nonspecific T wave abnormality in Lateral leads Referred By: Nieves Araujo Electronically Signed By:MARQUES BUSTAMANTE MD
[2023-09-08 20:16] LABS: MANUAL DIFF FLAG NO
[2023-09-08 20:19] LABS: Basophils Percent Auto 0.4 % (0-2); Eosinophils Absolute Auto 0.1 X10*3/uL (0.0-0.4); Eosinophils Percent Auto 0.9 % (0-4); Hematocrit 37.4 % (37.0-47.0); Hemoglobin 11.7 g/dl (12.0-16.0); Imm Gran Abs Auto 0.04 X10*3/uL (0.00-0.03); Imm Gran Pct Auto 0.4 % (0.0-0.4); Lymphocytes Absolute Auto 2.7 X10*3/uL (1.2-4.9); Lymphocytes Percent Auto 24.2 % (20-40); Mean Corpuscular HGB Conc 31.3 g/dl (31.0-35.0); Mean Corpuscular Hemoglobin 27.8 pg (27.0-33.0); Mean Corpuscular Volume 88.8 fL (80.0-98.0); Mean Platelet Volume 10.8 fL (9.4-12.3); Monocytes Absolute Auto 0.8 X10*3/uL (0.1-1.2); Monocytes Percent Auto 6.8 % (2-11); Neutrophils Absolute Auto 7.6 x10*3/uL (2.0-8.3); Neutrophils Percent Auto 67.3 % (45-73); Platelet Count 224 X10*3/uL (160-400); Red Blood Count 4.21 X10*6/uL (4.20-5.50); Red Cell Distribution Width 14.3 % (11.0-16.0); White Blood Count 11.3 X10*3/uL (4.8-10.8)
[2023-09-08 20:44] LABS: Alanine Aminotransferase 11 U/L (0-31); Albumin Level 4.6 g/dL (3.5-5.0); Alkaline Phosphatase 121 U/L (39-117); Anion Gap 17 (12-20); Aspartate Amino Transferase 11 U/L (5-31); Bilirubin Total 0.3 mg/dL (0.0-1.0); Blood Urea Nitrogen 39 mg/dL (9-16); Calcium 10.5 mg/dL (8.4-10.2); Carbon Dioxide 21 mmol/L (22-29); Chloride 107 mmol/L (96-108); Creatinine Clr Calc Pharmacy 26.6; Estimated Glomerular Filt Rate 37; Glucose Random 146 mg/dL (60-115); Lipase 10 U/L (8-78); Magnesium 1.4 mg/dL (1.6-2.6); Potassium 4.4 mmol/L (3.3-5.1); Sodium 141 mmol/L (135-145); Total Protein 8.1 g/dL (6.5-8.0); Troponin-I High Sensitivity 3.5 ng/L (<3.5-17.0)
[2023-09-09] MEDS: clonazePAM 1 MG TABLET PO (00:45)
[2023-09-09] MEDS: Magnesium Oxide 400 MG TABLET 800 MG PO (00:45)
[2023-09-09 00:49] VITALS: BP 189/76; PULSE 81; RESP 16; TEMP 36.8; O2SAT 96
[2023-09-09 01:27] LABS: Appearance Urine Clear; Color Urine Yellow; Glucose Urine UA Negative (Negative); Leukocyte Esterase Urine Negative (Negative); Nitrite Urine Negative (Negative); PH 5.5 (5.0-9.0); Specific Gravity - Urine 1.015 (1.005-1.025); Urine Blood Negative (Negative); Urine Ketones Negative (Negative); Urine Protein Negative (Neg-Trace)
[2023-09-09 02:37] VITALS: BP 169/88; PULSE 87; RESP 16; TEMP 36.9; O2SAT 99
[2023-09-09 03:02] VITALS: BP 169/88; PULSE 87; RESP 16; TEMP 36.9; O2SAT 99
== END 2023-09-09 03:03 | disposition home or self-care (01) ==
PROVIDERS: Physician Assistant Medical; Emergency Provider Internal Medicine; PCP Family Medicine
DX: E83.42 Hypomagnesemia (principal); F41.9 Anxiety disorder, unspecified; R94.31 Abnormal electrocardiogram [ECG] [EKG]; Z79.899 Other long term (current) drug therapy
CPT/HCPCS: 36415; 71046; 80053; 81003; 83690; 83735; 84484; 85025; 93005; 99212; 99283; 99285

== ENCOUNTER → 2023-09-08 19:40 | Outpatient (BNV) | payer OTHER, SELFPAY | PROVIDERS: Emergency Provider Internal Medicine; PCP Family Medicine; Visit Provider Internal Medicine Cardiovascular Disease | DX: R94.31 Abnormal electrocardiogram [ECG] [EKG] (principal); F41.9 Anxiety disorder, unspecified | CPT/HCPCS: 93010 ==

== ENCOUNTER 2023-12-01 13:43 | Outpatient (AMB) | payer OTHER, SELFPAY ==
[2023-12-01 13:43] VITALS: BP 114/70; PULSE 106; O2SAT 94; BMI 41.0
--- NOTE | 2023-12-01 13:43 | HO.NEPHOV ---
Vital Signs 12/01/23 13:43 Height 4 ft 5 in Weight 164 lb BMI 41.0 BP 114/70 Blood Pressure Location Rt brachial Position Sitting Pulse 106 H Pulse Source Pulse Oximeter Pulse Oximetry (%) 94 Intake Visit Reasons: Chronic kidney disease/ # not in service Hardware Design Engineer Required: Yes Hardware Design Engineer Name: [id number] julianne Accompanied by: Self / Same As Patient Allergies No Known Allergies [NO KNOWN ALLERGIES] Allergy (Unknown, Verified 12/01/23 13:45) UNKNOWN Medication List - Last Reconciled 12/01/23 by Juan C Silver MD acetaminophen ER 650 mg PO Q8H PRN amlodipine 5 mg PO DAILY aripiprazole 2 mg PO DAILY aspirin (Adult Aspirin Regimen) 81 mg PO DAILY atorvastatin 80 mg PO DAILY chlorthalidone 50 mg PO DAILY cholecalciferol (vitamin D3) (Vitamin D3) 25 mcg PO QAM clonidine HCl 0.1 mg PO BID conjugated estrogens (Premarin) 0 mg vaginal cyclobenzaprine 5 mg PO Q8H PRN 5 days dicyclomine 20 mg PO TID docusate sodium (Colace) 100 mg PO DAILY 30 days fluoxetine 60 mg PO QAM fluticasone propionate 220 mcg/actuation (Flovent HFA) 220 mcg inhalation ONCE glipizide 5 mg PO BID hydralazine 25 mg PO DAILY levothyroxine 50 mcg PO QAM linaclotide (Linzess) 290 mcg PO QAM 30 days magnesium oxide 400 mg PO DAILY 7 days magnesium oxide 400 mg PO DAILY methylcellulose (with sugar) (Citrucel (sucrose) oral powder) 1 tbsp PO BID mirtazapine 45 mg PO BEDTIME naproxen 500 mg PO BID PRN 10 days omeprazole 40 mg PO DAILY oxybutynin chloride ER 5 mg PO DAILY oxycodone 5 mg PO BID PRN prazosin 1 mg PO BEDTIME quetiapine ER 150 mg PO BEDTIME PRN sennosides (senna) 17.2 mg PO DAILY simethicone (Gas Relief (simethicone)) 180 mg PO BID 30 days HPI Comments Details: Wen is a middle-aged woman with history of longstanding hypertension along with diabetes mellitus was had mild chronic kidney disease. Baseline serum creatinine is around 1.2-1.2 mg/dL. In January 2023 creatinine peaked to 1.99. She is on lisinopril 40 mg along with chlorthalidone 50 mg. She has been taking meloxicam 7.5 mg and Naprosyn 500 mg almost on a regular basis. She continues her dysuria. She has longstanding history of constipation and she has been followed by Gastroenterology. 09/08/23: says she is anxious Interpretor service was used 12/01/23 Still on NAprosyn [facility] Medical History Dysuria Chronic kidney disease Diabetes 1.5, managed as type 2 HTN (hypertension) KIRSTIE (stress urinary incontinence, female) Urge incontinence Chronic idiopathic constipation GERD (gastroesophageal reflux disease) Irritable bowel syndrome with constipation Surgical History H/O tubal ligation Hx of section H/O: hysterectomy History of esophagogastroduodenoscopy (EGD) Hx of colonoscopy Family History Father Family hx of prostate cancer Cancer Brother Cancer Mother HTN (hypertension) Maternal Aunt Skin cancer, Onset Age: 59 Social History Household Members: None Alcohol intake: never Patient Tobacco Use Status: Never used Tobacco Current occupational status: disabled Female Reproductive History Menstrual Age of Menarche: 12 Physical Exam Vital Signs: Last Vital Signs Pulse 106 H 12/01/23 13:43 Pulse Ox 94 12/01/23 13:43 BMI result Body Mass Index 41.0 Results Reviewed Nephrology Results: Hgb 11.7 g/dl (12.0-16.0) L 09/08/23 WBC 11.3 X10*3/uL (4.8-10.8) H 09/08/23 Plt Count 224 X10*3/uL (160-400) 09/08/23 Sodium 141 mmol/L (135-145) 09/08/23 Potassium 4.4 mmol/L (3.3-5.1) 09/08/23 Chloride 107 mmol/L (96-108) 09/08/23 Carbon Dioxide 21 mmol/L (22-29) L 09/08/23 BUN 39 mg/dL (9-16) H 09/08/23 Creatinine 1.41 mg/dL (0.5-1.4) H 09/08/23 Calcium 10.5 mg/dL (8.4-10.2) H 09/08/23 Urine Protein Negative mg/dL (Neg-Trace) 09/09/23 Assessment & Plan Assessment & Plan (1) Chronic kidney disease: Code(s): N18.9 - Chronic kidney disease, unspecified Category: Medical Qualifiers: Chronic kidney disease stage 3 subtype: stage 3b (GFR 30-44) (2) HTN (hypertension): Code(s): I10 - Essential (primary) hypertension Category: Medical (3) Dysuria: Code(s): R30.0 - Dysuria Category: Medical Plan . Wen has FRANTZ superimposed on chronic disease. 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 She has no significant proteinuria therefore diabetic nephropathy seems unlikely. Recent imaging did not reveal any evidence of obstruction. Based on the recent urine studies I do not believe she has any active glomerulonephritis or interstitial disease at this time. Acute kidney injury is most likely due to hypoperfusion from the combination of high-dose of Jonh inhibitors with diuretics along with NSAIDs. AVOID both Naprosyn and meloxicam. Recheck renal function Avoid hypotension. Coding Level of Care Code Est Pt Level 4 (64875) Diagnoses Chronic kidney disease N18.9 Chronic kidney disease stage 3 subtype: stage 3b (GFR 30-44) HTN (hypertension) I10 Dysuria R30.0
== END 2023-12-01 13:54 | disposition home or self-care (01) ==
PROVIDERS: PCP Family Medicine; Visit Provider Internal Medicine Hypertension Specialist
DX: I12.9 Hypertensive chronic kidney disease with stage 1 through stage 4 chronic kidney disease, or unspecified chronic kidney disease (principal); N18.9 Chronic kidney disease, unspecified; R30.0 Dysuria; N18.4 Chronic kidney disease, stage 4 (severe)
CPT/HCPCS: 99214

== ENCOUNTER → 2023-12-01 13:43 | Outpatient (BNVA) | payer OTHER, SELFPAY | PROVIDERS: PCP Family Medicine; Visit Provider Internal Medicine Hypertension Specialist | DX: I12.9 Hypertensive chronic kidney disease with stage 1 through stage 4 chronic kidney disease, or unspecified chronic kidney disease (principal); N18.32 Chronic kidney disease, stage 3b; R30.0 Dysuria | CPT/HCPCS: 99212 ==

== ENCOUNTER 2024-01-12 12:51 | Outpatient (REF) | payer OTHER, SELFPAY ==
--- NOTE | ~2024-01-12 | US_ITS ---
EXAMINATION: US RETROPERITONEAL LIMITED (RENAL ONLY) CLINICAL INFORMATION: Chronic kidney disease, stage 4 (severe). COMPARISON: CT abdomen and pelvis 12/12/2022. Ultrasound kidneys and bladder 06/24/2022. Ultrasound abdomen limited 08/06/2020. MR abdomen without contrast 07/08/2018. TECHNIQUE: Real-time imaging of the kidneys. FINDINGS: RIGHT KIDNEY: 8.5 x 4.0 x 3.3 cm (SAG x AP x TRV). The kidney is small with cortical thinning. No calculi or focal parenchymal lesions. No hydronephrosis. LEFT KIDNEY: 8.5 x 4.7 x 4.0 cm (SAG x AP x TRV). The kidney is small with some increased echogenicity. Renal cortical thickness is normal. No calculi or focal parenchymal lesions. No hydronephrosis. US/US renal BI IMPRESSION: Small echogenic kidneys consistent with medical renal disease. Electronically signed by: Luigi Ward MD 03/15/2024 10:42 AM GAIL
== END 2024-01-12 12:52 | disposition home or self-care (01) ==
LOC: HO.US 12:51
PROVIDERS: PCP Family Medicine; Visit Provider Internal Medicine Hypertension Specialist
DX: N18.4 Chronic kidney disease, stage 4 (severe) (principal)
CPT/HCPCS: 76775

== ENCOUNTER 2024-02-01 13:15 | Outpatient (AMB) | payer OTHER, SELFPAY ==
--- NOTE | 2024-02-01 13:19 | A.OFFVIS_ITS ---
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 Complaining of urinary frequency and difficulty initiating the stream. The patient has been complaining of right-sided pelvic pain with no associated vaginal discharge or bleeding no fever or chills no nausea or vomiting. Last Pap/HPV was many years ago no history of abnormal Pap smears, the patient is status post hysterectomy for AUB Last Mammogram was BI-RADS 2 in 09/24 Last Colonoscopy was in 04/27, the recommendation was to repeat in 5 years Last DEXA scan was in 09/24 [facility] Medical History Dysuria Chronic kidney disease Diabetes 1.5, managed as type 2 HTN (hypertension) KIRSTIE (stress urinary incontinence, female) Urge incontinence Chronic idiopathic constipation GERD (gastroesophageal reflux disease) Irritable bowel syndrome with constipation Surgical History H/O tubal ligation Hx of section H/O: hysterectomy History of esophagogastroduodenoscopy (EGD) Hx of colonoscopy Family History Father Family hx of prostate cancer Cancer Brother Cancer Mother HTN (hypertension) Maternal Aunt Skin cancer, Onset Age: 59 Social History Household Members: None Alcohol intake: never Patient Tobacco Use Status: Never used Tobacco Current occupational status: disabled Female Reproductive History Menstrual Age of Menarche: 12 Date of Mammogram: 09/10/22 Review of Systems Const All systems reviewed & are unremarkable except as noted in HPI and below Card Reports as per HPI and Reports no additional complaints Resp Reports as per HPI and Reports no additional complaints GI Reports as per HPI and Reports no additional complaints Reports as per HPI Physical Exam Vital Signs: Last Vital Signs BP 114/66 02/01/24 13:21 BMI result Body Mass Index 40.8 Const General: cooperative, healthy appearing and comfortable General: Yes bladder normal to palpation External Female Exam: No lesion Speculum Exam - Vagina: normal appearance of the vagina, normal vaginal discharge and not erythematous Speculum Exam - Cervix: Cervix absent Bimanual exam- vagina & uterus: bladder normal to palpation and uterus absent Bimanual Exam- Adnexa, other: Other (No masses detected) Assessment & Plan Assessment & Plan (1) Well woman exam: Code(s): Z01.419 - Encounter for gynecological examination (general) (routine) without abnormal findings Category: Medical Plan: Co testing not indicated since the patient 's age is above 65 status post hysterectomy with no history of abnormal Pap smears last 25 years. Counseled the patient about the recommended dietary allowance of 1200 mg of Calcium & 800 IU of vitamin D. Mammogram ordered. Referred her for screening colonoscopy done. The patient was instructed to perform monthly self-breast exams and to schedule an annual exam in a year; All questions answered and the patient verbalized understanding. (2) Pelvic pain: Code(s): R10.2 - Pelvic and perineal pain Category: Medical Plan: Discussed with the patient the differential diagnosis of pelvic pain including but not limited to adnexal, GI the (Irritable bowel syndrome, diverticulitis, others), musculoskeletal, myofascial pain abdominal wall , adhesions, psychological and others causes. Pelvic ultrasound ordered. Instructions given the patient to schedule an ultrasound follow-up appointment within 2 weeks.. All questions answered, the patient verbalized understanding. Instructed the patient to schedule follow-up appointment in 2 weeks (3) Urine frequency: Code(s): R35.0 - Frequency of micturition Category: Medical Plan: Will refer to Urology. All questions answered, the patient verbalized understanding. Orders: Orders MM tomosynthesis screening BI Today Z12.31 - Encounter for screening mammogram for malignant neoplasm of breast US pelvic and transvaginal Today R10.2 - Pelvic and perineal pain Referrals Urology Referral R35.0 - Frequency of micturition Coding Level of Care Code Est Pt Level 3 (67333) Est Pt Prev Care >65y(04886) Diagnoses Well woman exam Z01.419 Pelvic pain R10.2 Urine frequency R35.0
[2024-02-01 13:21] VITALS: BP 114/66; BMI 40.8
== END 2024-02-01 13:56 | disposition home or self-care (01) ==
LOC: HO.HWS 13:15
PROVIDERS: PCP Family Medicine; Visit Provider Obstetrics & Gynecology
DX: Z01.419 Encounter for gynecological examination (general) (routine) without abnormal findings (principal); R10.2 Pelvic and perineal pain; R35.0 Frequency of micturition
CPT/HCPCS: 99397

== ENCOUNTER → 2024-02-01 13:15 | Outpatient (BNVA) | payer OTHER, SELFPAY | PROVIDERS: PCP Family Medicine; Visit Provider Obstetrics & Gynecology | DX: Z01.419 Encounter for gynecological examination (general) (routine) without abnormal findings (principal); R10.2 Pelvic and perineal pain; R35.0 Frequency of micturition | CPT/HCPCS: 99397 ==

== ENCOUNTER 2024-03-29 11:46 | Outpatient (REF) | payer OTHER, SELFPAY ==
--- NOTE | ~2024-03-29 | XR_ITS ---
EXAMINATION: BILATERAL KNEES, THORACIC SPINE CLINICAL INFORMATION: Bilateral knee pain, back pain COMPARISON: Right knee 12/21/2022, left knee 07/09/2020, chest radiograph 05/02/2019 TECHNIQUE: 3 views each knee, 3 views thoracic spine FINDINGS: Thoracic spine: Some minimal spondylitic endplate changes are seen. No fractures or subluxations. No bony destructive lesions. Paraspinal soft tissues appear unremarkable. Right knee: There is some minimal chondrocalcinosis in the medial menisci. Joint spaces are well preserved. No joint effusion is seen. No fractures or bony destructive lesions. Vascular calcifications are noted. Left knee: There are mild degenerative changes seen with narrowing of the medial compartment and small medial tibial plateau marginal osteophyte. Some mild osteophytes are noted arising from the tibial tubercles. There is no chondrocalcinosis. No joint effusion. Vascular calcifications are noted. XR/XR knee LT 3V IMPRESSION: 1. Mild degenerative changes in the thoracic spine. 2. Mild degenerative changes in the left knee. 3. Minimal chondrocalcinosis in the right knee. Electronically signed by: Luigi Ward MD 03/29/2024 02:23 PM GAIL
--- NOTE | ~2024-03-29 | XR_ITS ---
EXAMINATION: BILATERAL KNEES, THORACIC SPINE CLINICAL INFORMATION: Bilateral knee pain, back pain COMPARISON: Right knee 12/21/2022, left knee 07/09/2020, chest radiograph 05/02/2019 TECHNIQUE: 3 views each knee, 3 views thoracic spine FINDINGS: Thoracic spine: Some minimal spondylitic endplate changes are seen. No fractures or subluxations. No bony destructive lesions. Paraspinal soft tissues appear unremarkable. Right knee: There is some minimal chondrocalcinosis in the medial menisci. Joint spaces are well preserved. No joint effusion is seen. No fractures or bony destructive lesions. Vascular calcifications are noted. Left knee: There are mild degenerative changes seen with narrowing of the medial compartment and small medial tibial plateau marginal osteophyte. Some mild osteophytes are noted arising from the tibial tubercles. There is no chondrocalcinosis. No joint effusion. Vascular calcifications are noted. XR/XR knee RT 3V IMPRESSION: 1. Mild degenerative changes in the thoracic spine. 2. Mild degenerative changes in the left knee. 3. Minimal chondrocalcinosis in the right knee. Electronically signed by: Luigi Ward MD 03/29/2024 02:23 PM GAIL
--- NOTE | ~2024-03-29 | XR_ITS ---
EXAMINATION: BILATERAL KNEES, THORACIC SPINE CLINICAL INFORMATION: Bilateral knee pain, back pain COMPARISON: Right knee 12/21/2022, left knee 07/09/2020, chest radiograph 05/02/2019 TECHNIQUE: 3 views each knee, 3 views thoracic spine FINDINGS: Thoracic spine: Some minimal spondylitic endplate changes are seen. No fractures or subluxations. No bony destructive lesions. Paraspinal soft tissues appear unremarkable. Right knee: There is some minimal chondrocalcinosis in the medial menisci. Joint spaces are well preserved. No joint effusion is seen. No fractures or bony destructive lesions. Vascular calcifications are noted. Left knee: There are mild degenerative changes seen with narrowing of the medial compartment and small medial tibial plateau marginal osteophyte. Some mild osteophytes are noted arising from the tibial tubercles. There is no chondrocalcinosis. No joint effusion. Vascular calcifications are noted. XR/XR thoracic spine 2V IMPRESSION: 1. Mild degenerative changes in the thoracic spine. 2. Mild degenerative changes in the left knee. 3. Minimal chondrocalcinosis in the right knee. Electronically signed by: Luigi Ward MD 03/29/2024 02:23 PM GAIL
[2024-03-29 13:45] LABS: Alanine Aminotransferase 13 U/L (0-31); Albumin Level 4.1 g/dL (3.5-5.0); Alkaline Phosphatase 141 U/L (39-117); Anion Gap 14 (12-20); Aspartate Amino Transferase 19 U/L (5-31); Bilirubin Total 0.3 mg/dL (0.0-1.0); Blood Urea Nitrogen 30 mg/dL (9-16); Calcium 9.6 mg/dL (8.4-10.2); Carbon Dioxide 27 mmol/L (22-29); Chloride 98 mmol/L (96-108); Cholesterol 253 mg/dL (<200); Estimated Glomerular Filt Rate 35; Glucose Random 250 mg/dL (60-115); HDL Cholesterol 59 mg/dL (>40); LDL Cholesterol Calculated 148 mg/dL (<100); Magnesium 1.8 mg/dL (1.6-2.6); Potassium 3.8 mmol/L (3.3-5.1); Sodium 135 mmol/L (135-145); Total Protein 7.9 g/dL (6.5-8.0); Triglycerides 232 mg/dL (<150)
[2024-03-29 13:49] LABS: Reflex LDLD? No
[2024-03-29 14:09] LABS: TSH reflex Free T4 1.12 uIU/mL (0.32-4.0)
[2024-03-29 16:35] LABS: Amphetamine Screen Urine Not Detected (Not Detect); Barbiturates, Urine Not Detected (Not Detect); Benzodiazepines Screen Urine POSITIVE (Not Detect); Buprenorphine Scr Not Detected (Not Detect); Cannabinoid Screen Urine Not Detected (Not Detect); Cocaine Screen Urine Not Detected (Not Detect); Fentanyl, urine Not Detected (Not Detect); Methadone Screen, Urine Not Detected (Not Detect); Opiate Screen Urine POSITIVE (Not Detect); Oxycodone Screen Urine Positive (Not Detect); Phencyclidine Screen Urine Not Detected (Not Detect)
[2024-03-29 16:40] LABS: Creatinine Urine 136.27 mg/dL; Microalbum/Creatinine Ratio Ur 10.2 ug/mg cr (<30)
== END 2024-03-29 11:47 | disposition home or self-care (01) ==
LOC: HO.HHCL 11:46
PROVIDERS: Visit Provider Family Medicine
DX: E11.22 Type 2 diabetes mellitus with diabetic chronic kidney disease (principal); M51.34 Other intervertebral disc degeneration, thoracic region; M23.8X2 Other internal derangements of left knee; M11.261 Other chondrocalcinosis, right knee; N18.32 Chronic kidney disease, stage 3b; G89.29 Other chronic pain; E83.42 Hypomagnesemia; E03.9 Hypothyroidism, unspecified
CPT/HCPCS: 36415; 72070; 73562; 80053; 80061; 80307; 82043; 82570; 83735; 84443

== ENCOUNTER 2024-03-29 14:54 | Outpatient (REF) | payer OTHER, SELFPAY | END 2024-03-29 14:55 | disposition home or self-care (01) | LOC: HO.HHCL 14:54 | PROVIDERS: Visit Provider Family Medicine | DX: Z13.89 Encounter for screening for other disorder (principal) ==

== ENCOUNTER 2024-03-30 14:02 | Outpatient (REF) | payer OTHER, SELFPAY | END 2024-03-30 14:03 | disposition home or self-care (01) | LOC: HO.US 14:02 | PROVIDERS: PCP Family Medicine; Visit Provider Obstetrics & Gynecology | DX: R10.2 Pelvic and perineal pain (principal) | CPT/HCPCS: 76830; 76856 ==

== ENCOUNTER → 2024-03-30 14:05 | Outpatient (BNV) | payer OTHER, SELFPAY | PROVIDERS: PCP Family Medicine; Visit Provider Radiology Diagnostic Radiology | DX: R10.2 Pelvic and perineal pain (principal); Z90.710 Acquired absence of both cervix and uterus | CPT/HCPCS: 76830; 76856 ==

== ENCOUNTER 2024-05-03 13:17 | Outpatient (AMB) | payer OTHER, SELFPAY ==
--- NOTE | 2024-05-03 13:17 | MHC.OFFVIS ---
Intake Visit Reasons: ultrasound results Supervisor Shuttle Veneering Required: Yes Supervisor Shuttle Veneering Language: Humidifier Maintenance Worker Services: Supervisor Shuttle Veneering Present (Stonewedge) Supervisor Shuttle Veneering Name: Kennedi [id number] Information Interpreted: clinical only Slab Miller Operator: Slab Miller Operator Present (Phuong) Accompanied by: Self / Same As Patient Allergies No Known Allergies [NO KNOWN ALLERGIES] Allergy (Unknown, Verified 05/03/24 13:22) UNKNOWN HPI Comments Details: Presenting for follow-up pelvic pain . The patient was refer to Urology for frequent micturition Pelvic ultrasound showed the following: Uterus: The uterus is surgically absent. Surgical bed is unremarkable. Adnexa: Both ovaries are visualized. There is normal color flow to the adnexa. There is no ovarian torsion. There is no pelvic ascites or fluid collection. No adnexal masses. Right ovary measures 1.7 x 1.0 x 1.1 cm. Volume = 1.0 mL. Normal sonographic appearance. Left ovary measures 1.2 x 1.4 x 1.1 cm. Volume = 0.9 mL. Normal sonographic appearance. [facility] Medical History Dysuria Chronic kidney disease Diabetes 1.5, managed as type 2 HTN (hypertension) KIRSTIE (stress urinary incontinence, female) Urge incontinence Chronic idiopathic constipation GERD (gastroesophageal reflux disease) Irritable bowel syndrome with constipation Surgical History H/O tubal ligation Hx of section H/O: hysterectomy History of esophagogastroduodenoscopy (EGD) Hx of colonoscopy Family History Father Family hx of prostate cancer Cancer Brother Cancer Mother HTN (hypertension) Maternal Aunt Skin cancer, Onset Age: 59 Social History Household Members: None Alcohol intake: never Patient Tobacco Use Status: Never used Tobacco Current occupational status: disabled Female Reproductive History Menstrual Age of Menarche: 12 Review of Systems Const All systems reviewed & are unremarkable except as noted in HPI and below Reports as per HPI and Reports no additional complaints GI Reports no additional complaints Reports no additional complaints Assessment & Plan Assessment & Plan (1) Pelvic pain: Code(s): R10.2 - Pelvic and perineal pain Category: Medical Plan: Discussed with the patient the results of the workup done including unremarkable pelvic ultrasound. Differential diagnosis of catalogue librarian causes that have not be ruled out yet include but not limited to pelvic adhesions or other. Recommended for the patient to see her PCP for further workup for non catalogue librarian causes; if the all the results are negative and the patient's pelvic pain is persistent, instructions given to patient to call back for further testing. Meanwhile, instructions were given the patient to go to emergency room or call in case of fever above 100.4, persistence or worsening of her pelvic pain. All questions answered, the patient verbalized understanding. Coding Level of Care Code Est Pt Level 3 (50538) Diagnoses Pelvic pain R10.2
--- OUTSIDE RECORDS SUMMARY | 2024-05-03 17:09 | XMS_ITS | Encounter Summary ---
Author Organization [facility] Address [address] [facility] 7t [place] [address] Care Team Providers Care Baker Bench Name Role Phone Kathryn Jarquin MD Primary Care Provider [phone] Denis Rodgers PharmD Unavailable [phone] Reason for Visit * Reason Onset Date Comments Med Refill 04/30/2024 Encounter Details Date Type Department Care Team ([facility] st Contact Info) Description 04/30/2024 Refill [facility]INE [address] [place], [place] [phone] Kathryn Jarquin MD [address] [place] [address] Upper back pain; Chronic pain of both knees; Chronic female pelvic pain; Chronic pain syndrome Social History Tobacco Use Types Packs/Day Years Used Date Smoking Tobacco: Former Cigarettes Passive Smoke Exposure: Past Smokeless Tobacco: Never Depression Answer Date Recorded Patient Health Questionnaire-9 Score 12 03/29/2024 Patient Health Questionnaire-9 Score 12 03/29/2024 Last PHQ-9: Questionnaire Data Not on file 1 05/30/2023 Housing Stability Answer Date Recorded What is your housing situation today? I have skinny lepe 06/13/[address] you li ve. Do you have problems with any of the following? None of the above 06/13/2023 Food Insecurity Answer Date Recorded Within the past 12 months, y ou worried that your food would run out before you got money to buy more: Never True 01/17/2023 Within the past 12 months,th e food you bought just didn't last and you didn't have enough money to get more: Never True Transportation Answer Date Recorded In the past 12 months, has l ack of transportation kept you from medical appts, meetings, work or from getting things needed for daily living? No 01/17/2023 Utilities Answer Date Recorded In the past 12 months, has t he electric, gas, oil or water company threatened to shut off services in your home? No 01/17/2023 Depression Answer Date Recorded Patient Health Questionnaire-2 Score 4 03/29/2024 Internet Access Answer Date Recorded Internet Access Q1 Yes 12/05/2023 Internet Access Q2 Not on file 12/05/2023 Comments Unknown Sex and Gender Information Value Date Recorded Sex Assigned at Female 02/01/2022 10:14 AM EDT Legal Sex Female 10:14 AM EDT Gender Identity Female 02/01/2022 10:14 AM EDT Sexual Orientation Straight 02/01/2022 10 :14 AM EDT documented as of this encounter Miscellaneous Notes * Telephone Encounter - Makenzie Mckinney - 04/30/2024 12:13 PM EST TC from pt requesting medication refill. Medications needing refill : oxyCODONE (Roxicodone) 5 MG immediate release tablet To be sent to: [facility] documented in this encounter Plan of Treatment Upcoming Encounters Date Type Department Care Team (Late st Contact Info) Description 05/10/2024 1:00 PM EST Medication Management [address] [address] 05/25/2024 10:30 AM EST Clinical Support [facility] [address] [place] [address] Rhonda Valdez, DELFINA [address] [place] [address] documented as of this encounter Goals Goal Patient Goal Type Associated Problems Recent Progress Patient-Stated? Author Blood Pressure < 140/90 Blood Pressure 144/76( 024 11:43 AM EST) Denis Watkins, Swapnil documented as of this encounter Visit Diagnoses Diagnosis Upper back pain Unspecified backache Chronic pain of both knees Chronic female pelvic pain Unspecified symptom associated with female genital organs Chronic pain syndrome documented in this encounter Additional Health Concerns Assessment Noted Time PHQ-9 Depression Total Score: 12 024 10:26 AM EST documented as of this encounter Care Teams Baker Bench Relationship Specialty Start Date End Date Kathryn Jarquin MD [address] [place] [address] PCP - General Family Medicine 04/04/18 Denis Rodgers, NamitaD [address] [place] [address] Pharmacist Internal Medicine 10/22/22 documented as of this encounter
--- OUTSIDE RECORDS SUMMARY | 2024-05-03 17:09 | XMS_ITS | Encounter Summary ---
Author Organization [facility] Address [address] [facility] 7t [place] [address] Care Team Providers Care Business Intelligence Developer Name Role Phone Kathryn Jarquin MD Primary Care Provider [phone] Denis Rodgers PharmD Unavailable [phone] Encounter Details Date Type Department Care Team ([facility] Contact Info) Description 03/30/2024 Orders Only [facility] External Provider, [facility] Social History Tobacco Use Types Packs/Day Years [...] AM EDT documented as of this encounter Plan of Treatment Upcoming Encounters Date Type Department Care Team (Late st Contact Info) Description 05/10/2024 1:00 PM EST Medication Management [address] [address] 05/25/2024 10:30 AM EST Clinical Support [address] [address] Rhonda Valdez, DELFINA [address] [place] [address] documented as of this encounter Goals Goal Patient Goal Type Associated Problems Recent Progress Patient-Stated? Author Blood Pressure < 140/90 Blood Pressure 144/76( 024 11:43 AM EST) No Denis Rodgers, Swapnil documented as of this encounter Procedures Procedure Name Priority Date/Time Associated Diagnosis Comments US PELVIS TRANSVAGINAL Routine 03/30/2024 2:21 PM EST documented in this encounter Results * US Pelvis Transvaginal (03/30/2024 2:21 PM EST) Anatomical Region Laterality Modality Pelvis Ultrasound 03/30/2024 2:21 PM EST Narrative 04/13/2024 11:43 AM EST ? [facility] ?[address] ?[place] [address] ? Ultrasound Report ? Signed ? Patient: Moran,Wen ?MR#: [id number] ?? [id number] ? : 1955 ?Acct:[id number] ? Age/Sex: 68 / F ?ADM Date: 12/27/24 ? Loc: HO.US ? Attending Dr: Jaylen Cotton MD ? Ordering Physician: Jaylen Cotton MD ?? Date of Service: 03/30/24 ?? Procedure(s): US pelvic and transvaginal ?? Accession Number(s): [id number] ? cc: Kathryn Jarquin MD; Jalyen Cotton MD ? EXAMINATION: ? US PELVIS ? CLINICAL INFORMATION: ? Pelvic and perineal pain. 68-year-old female. ? COMPARISON: ?? 12/12/2022. ?? Correlation also made with CT abdomen and pelvis 12/12/2022. ? TECHNIQUE: ?? Ultrasound of the pelvis is performed using both transabdominal and ?? transvaginal transducers along with Doppler. Transvaginal imaging is ?? performed due to inadequate visualization transabdominally. ? FINDINGS: ?? Uterus: ?? The uterus is surgically absent. Surgical bed is unremarkable. ? Adnexa: ?? Both ovaries are visualized. There is normal color flow to the adnexa. ?? There is no ovarian torsion. ??There is no pelvic ascites or fluid ?? collection. No adnexal masses. ? Right ovary measures 1.7 x 1.0 x 1.1 ??cm. Volume = 1.0 mL. Normal ?? sonographic appearance. ? Left ovary measures 1.2 x 1.4 x 1.1 cm. Volume = 0.9 mL. Normal ?? sonographic appearance. ? US/US pelvic and transvaginal ?? IMPRESSION: ?? 1. Hysterectomy. Otherwise normal examination. ? Electronically signed by: ??Lazaro Mitchell MD ??04/13/2024 11:41 AM EST RP ?? Workstation: [id number] ? Dictated By: ?Lazaro Mitchell MD ? Signed By: ?<Electronically signed by Lazaro Mitchell MD in OV> ?04/13/24 1141 ? DD/ 142 ? TD/TT: 03/30/24 1427 ? New Car Driver: ? Procedure Note Patito Mcgovern - 04/13/[address] [address] Ultrasound Report Signed Patient: Devin Moran#: [id number] : 7Acct:[id number] Age/Sex: 68 / FADM Date: 03/30/24 Loc: HO.US Attending Dr: Jaylen Cotton MD Ordering Physician: Jaylen Cotton MD Date of Service: 03/30/24 Procedure(s): US pelvic and transvaginal Accession Number(s): [id number] cc: Kathryn Jarquin MD; Jaylen Cotton MD EXAMINATION: US PELVIS CLINICAL INFORMATION: Pelvic and perineal pain. 68-year-old female. COMPARISON: 12/12/2022. Correlation also made with CT abdomen and pelvis 12/12/2022. TECHNIQUE: Ultrasound of the pelvis is performed using both transabdominal and transvaginal transducers along with Doppler. Transvaginal imaging is performed due to inadequate visualization transabdominally. FINDINGS: Uterus: The uterus is surgically absent. Surgical bed is unremarkable. Adnexa: Both ovaries are visualized. There is normal color flow to the adnexa. There is no ovarian torsion. There is no pelvic ascites or fluid collection. No adnexal masses. Right ovary measures 1.7 x 1.0 x 1.1 cm. Volume = 1.0 mL. Normal sonographic appearance. Left ovary measures 1.2 x 1.4 x 1.1 cm. Volume = 0.9 mL. Normal sonographic appearance. US/US pelvic and transvaginal IMPRESSION: 1. Hysterectomy. Otherwise normal examination. Electronically signed by: Lazaro Mitchell MD 04/13/2024 11:41 AM EST Dictated By: Lazaro Mitchell MD Signed By: <Electronically signed by Lazaro Mitchell MD in OV> 04/13/24 1141 DD/ 1421 TD/TT: 03/30/24 1427 New Car Driver: [facility] External Provider IMG US PROCEDURES Final Result documented in this encounter Visit Diagnoses Not on filedocumented in this encounter Additional Health Concerns Assessment Noted Time PHQ-9 Depression Total Score: 12 024 10:26 AM EST documented as of this encounter Care Teams Business Intelligence Developer Relationship Specialty Start Date End Date Kathryn Jarquin MD [address] [place] [id number] PCP - General Family Medicine 04/04/18 Denis Rodgers, PharmD [address] [place] [address] Pharmacist Internal Medicine 10/22/22 documented as of this encounter
--- OUTSIDE RECORDS SUMMARY | 2024-05-03 17:09 | XMS_ITS | Encounter Summary ---
Author Organization [facility] Address [address] [facility] [address] [place] [address] Care Team Providers Care Home Attendant Name Role Phone Kathryn Jarquin MD Primary Care Provider [phone] Denis Rodgers PharmD Unavailable [phone] Reason for Visit * Reason Onset Date Comments Nurse Triage 04/30/2024 Encounter Details Date Type Department Care Team ([facility] st Contact Info) Description 04/30/2024 Telephone [facility] MED[facility]INE [address] [place], [place] [phone] Kathryn Jarquin MD [address] [place], [place] [phone] Nurse Triage Social History Tobacco Use Types Packs/Day Years [...] encounter Miscellaneous Notes * Telephone Encounter - Denise Pinedo RN - 04/30/2024 12:29 PM EST Call returned to Wen Moran to triage below. 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 Reports having pelvic pain for years. Per pt knee pain is related to chronic arthritis. No new or worsening pain. NO UTI sx reported. Pt states was just looking for Oxycodone refill. Pt advised request already sent to [facility] nurse, pending provider review and signature. Pt verbalized understandingand agrees to wait until Rx is ready. Denies any other questions or concerns. Pt to follow up with office PRN for any new or worsening symptoms. Protocol Used: Medication Refill and Renewal Call (Adult) Protocol-Based Disposition: Home Care Positive Triage Question: * Caller requesting a prescription renewal (no refills left), no triage required, and triager able to renew prescription per department policy * All higher-acuity triage questions were negative * Telephone Encounter - Makenzie Mckinney - 04/30/2024 12:12 PM EST Symptoms: Abdominal Pain - Female - Not , Knee Pain - Not From Injury Outcome: Schedule an urgent appointment (within 1 hour) or talk to a nurse or provider soon Reason: Trouble walking [phone] Nigerien documented in this encounter Plan of Treatment Upcoming Encounters Date Type Department Care Team (Late st Contact Info) Description 05/10/2024 1:00 PM EST Medication Management [facility] [place] [address] 05/25/2024 10:30 AM EST Clinical Support [facility] [address] Rhonda Valdez RN [address] [facility] [address] documented as of this encounter Goals Goal Patient Goal Type Associated Problems Recent Progress Patient-Stated? Author Blood Pressure < 140/90 Blood Pressure 144/76( 11:43 AM EST) No Denis Rodgers, PharmD documented as of this encounter Visit Diagnoses Not on filedocumented in this encounter Additional Health Concerns Assessment Noted Time PHQ-9 Depression Total Score: 12 10:26 AM EST documented as of this encounter Care Teams Home Attendant Relationship Specialty Start Date End Date Kathryn Jarquin MD [facility] [place] [address] PCP - General Family Medicine 04/04/18 Denis Rodgers, PharmD [facility] [place] [address] Pharmacist Internal Medicine 10/22/22 documented as of this encounter
--- OUTSIDE RECORDS SUMMARY | 2024-05-03 17:09 | XMS_ITS | Encounter Summary ---
Author Organization [employer] Address [address] 7t [place] [address] Care Team Providers Care Industrial Painter Name Role Phone Kathryn Jarquin MD Primary Care Provider [phone] Denis Rodgers PharmD Unavailable [phone] Encounter Details Date Type Department Care Team (Late st Contact Info) Description 03/26/2024 Abstract [facility] MEDICINE [address] [place] [address] Mya Garvey [place] Social History Tobacco Use Types Packs/Day Years [...] Description 05/10/2024 1:00 PM EST Medication Management [address] [address] 05/25/2024 10:30 AM EST Clinical Support [address] [address] Rhonda Valdez RN 505 [place] [address] documented as of this encounter Goals Goal Patient Goal Type Associated Problems Recent Progress Patient-Stated? Author Blood Pressure < 140/90 Blood Pressure 144/76( 024 11:43 AM EST) No Denis Rodgers PharmD documented as of this encounter Procedures Procedure Name Priority Date/Time Associated Diagnosis Comments DIABETES EYE EXAM Routine 11/18/2023 documented in this encounter Results * Diabetes Eye Exam (11/18/2023) [facility] Eye Exam Normal Normal 11/18/2023 Historical Provider HEALTH MAINTENANCE Final Result documented in this encounter Visit Diagnoses Not on filedocumented in this encounter Care Teams Industrial Painter Relationship Specialty Start Date End Date Kathryn Jarquin MD [address] [place] [address] PCP - General Family Medicine 04/04/18 Denis Rodgers, PharmD [address] [place] [address] Pharmacist Internal Medicine 10/22/22 documented as of this encounter
--- OUTSIDE RECORDS SUMMARY | 2024-05-03 17:09 | XMS_ITS | Encounter Summary ---
Author Organization [employer] Address [address] [facility] 7t [place] [address] Care Team Providers Care Managing Director Atlas Name Role Phone Kathryn Jarquin MD Primary Care Provider [phone] Denis Rodgers PharmD Unavailable [phone] Encounter Details Date Type Department Care Team (Late st Contact Info) Description 01/14/2023 Orders Only [facility] MEDICINE 230 [place], [place] [phone] Kathryn Jarquin MD 230 [place] [address] Stage 3b chronic kidney disease (CMS/HCC) (Primary Dx); Essential hypertension; Type 2 diabetes mellitus with hyperglycemia, without long-term current use of insulin (CMS/HCC) Social History Tobacco Use Types Packs/Day Years Used Date Smoking Tobacco: Former Cigarettes Passive Smoke Exposure: Past Smokeless Tobacco: Never Housing Stability Answer Date Recorded What is your housing situation today? I have housing today, but I am worried about losing housing in the future 01/17/[address] you li ve. Do you have problems with any of the following? None of the above 01/17/2023 Food Insecurity Answer Date Recorded Within the [...] t he electric, gas, oil or water [email or web address] threatened to shut off services in your home? No 01/17/2023 Comments Unknown Sex and Gender Information Value [...] Description 05/10/2024 1:00 PM EST Medication Management [address] [address] 05/25/2024 10:30 AM EST Clinical Support [address] [address] Rhonda Valdez RN 505 [place] [address] Scheduled Orders Name Type Priority Associated Diagnoses Orde r Schedule Comprehensive Metabolic Panel Lab Routine Stage 3b chronic kidney disease (CMS/HCC) Expected: 01/14/2023 (Approximate), Expires: 01/15/2024 Creatine Kinase, Total Lab Routine Stage 3b chronic kidney disease (CMS/HCC) Expected: 01/14/2023 (Approximate), Expires: 01/15/2024 documented as of this encounter Goals Goal Patient Goal Type Associated Problems Recent Progress Patient-Stated? Author Blood Pressure < 140/90 Blood Pressure 144/76( 024 11:43 AM EST) No Denis Rodgers, Swapnil documented as of this encounter Visit Diagnoses Diagnosis Stage 3b chronic kidney disease (CMS/HCC)- Primary Essential hypertension Unspecified essential hypertension Type 2 diabetes mellitus with hyperglycemia, without long-term current use of insulin (CMS/HCC) documented in this encounter Care Teams Managing Director Atlas Relationship Specialty Start Date End Date Kathryn Jarquin MD [address] [place] [address] PCP - General Family Medicine 04/04/18 Denis Rodgers, NamitaD [address] [place] [address] Pharmacist Internal Medicine 10/22/22 documented as of this encounter
--- OUTSIDE RECORDS SUMMARY | 2024-05-03 17:09 | XMS_ITS | Encounter Summary ---
Author Organization [employer] Address [address] [facility] 7t [place] [address] Care Team Providers Care Financial Reporting Director Name Role Phone Kathryn Jarquin MD Primary Care Provider [phone] Denis Rodgers PharmD Unavailable [phone] Encounter Details Date Type Department Care Team ([facility] st Contact Info) Description 05/01/2024 Telephone [facility] MEDICINE 230 [place], [place] [phone] Kathryn Jarquin MD 230 [place], [place] [phone] Social History Tobacco Use Types Packs/Day Years [...] encounter Miscellaneous Notes * Telephone Encounter - Beka Prabhakar - 05/01/2024 9:40 AM EST Pharmacy [facility] attempted outreach call on 05/01/24 for CDTM - Diabetes appointment; however, unable to reach patient. LVM for patient to contact Beka Prabhakar at [phone]. documented in this encounter Plan of Treatment Upcoming Encounters Date Type Department Care Team (Late st Contact Info) Description 05/10/2024 1:00 PM EST Medication Management [address] [address] 05/25/2024 10:30 AM EST Clinical Support [address] [address] Rhonda Valdez RN 505 [place] [address] documented as of this encounter Goals Goal [...] documented as of this encounter Care Teams Financial Reporting Director Relationship Specialty Start Date End Date Kathryn Jarquin MD [address] [place] [address] PCP - General Family Medicine 04/04/18 Denis Rodgers, NamitaD 230 [place] [address] Pharmacist Internal Medicine 10/22/22 documented as of this encounter
--- OUTSIDE RECORDS SUMMARY | 2024-05-03 17:09 | XMS_ITS | Encounter Summary ---
Author Organization [employer] Address [address] [facility] 7t [place] [address] Care Team Providers Care Price Changer Name Role Phone Kathryn Jarquin MD Primary Care Provider [phone] Denis Rodgers PharmD Unavailable [phone] Encounter Details Date Type Department Care Team ([facility] st Contact Info) Description 09/30/2023 Orders Only [facility] MEDICINE 230 [place], [place] [phone] Kathryn Jarquin MD 230 [place], [place] [phone] Social History Tobacco Use Types Packs/Day Years [...] Description 05/10/2024 1:00 PM EST Medication Management [address] [address] 05/25/2024 10:30 AM EST Clinical Support [address] [address] Rhonda Valdez, DELFINA 505 [place] [address] documented as of this encounter Goals Goal Patient Goal Type Associated Problems Recent Progress Patient-Stated? Author Blood Pressure < 140/90 Blood Pressure 144/76( 024 11:43 AM EST) No Denis Rodgers, PharmMirela documented as of this encounter Visit Diagnoses Not on filedocumented in this encounter Care Teams Price Changer Relationship Specialty Start Date End Date Kathryn Jarquin MD [address] [place] [address] PCP - General Family Medicine 04/04/18 Denis Rodgers, PharmD [address] [place] [address] Pharmacist Internal Medicine 10/22/22 documented as of this encounter
--- OUTSIDE RECORDS SUMMARY | 2024-05-03 17:09 | XMS_ITS | Encounter Summary ---
Author Organization [employer] Address [address] [facility] 7t [place] [address] Care Team Providers Care Yarn Examiner Name Role Phone Kathryn Jarquin MD Primary Care Provider [phone] Denis Rodgers PharmD Unavailable [phone] Reason for Visit * Reason Onset Date Comments Med Refill 04/16/2024 Encounter Details Date Type Department Care Team ([facility] st Contact Info) Description 04/16/2024 Telephone [facility] MEDICINE 230 [place], [place] [phone] Kathryn Jarquin MD [address] [place], [place] [phone] Med Refill Social History Tobacco Use Types Packs/Day Years [...] encounter Miscellaneous Notes * Telephone Encounter - Rhonda Valdez RN - 04/16/2024 10:17 AM EST TC to pt, no answer. Clonazepam prescribed by an outside provider, pt to contact their office for arefill. * Telephone Encounter - Sarthak Moreland - 04/16/2024 9:48 AM EST TC from pt requesting medication refill. Medications needing refill : clonazePAM (KlonoPIN) 2 MG tablet To be sent to: [facility] - [place], [place] - [address] [place] [address] documented in this encounter Plan of Treatment Upcoming Encounters Date Type Department Care Team (Late st Contact Info) Description 05/10/2024 1:00 PM EST Medication Management [facility] MEDICINE [address] [place] [address] 05/25/2024 10:30 AM EST Clinical Support [facility] MED[facility]INE [address] [place] [address] Rhonda Valdez RN 505 [place] [address] documented as of this encounter Goals Goal Patient Goal Type Associated Problems Recent Progress Patient-Stated? Author Blood Pressure < 140/90 Blood Pressure 144/76( 024 11:43 AM EST) No Denis Rodgers, PharmD documented as of this encounter Visit Diagnoses Not on filedocumented in this encounter Additional Health Concerns Assessment Noted Time PHQ-9 Depression Total Score: 12 024 10:26 AM EST documented as of this encounter Care Teams Yarn Examiner Relationship Specialty Start Date End Date Kathryn Jarquin MD [address] [place] [address] PCP - General Family Medicine 04/04/18 Denis Rodgers, PharmD [address] [place] [address] Pharmacist Internal Medicine 10/22/22 documented as of this encounter
--- OUTSIDE RECORDS SUMMARY | 2024-05-03 17:09 | XMS_ITS | Encounter Summary ---
Author Organization [employer] Address 75 [facility] 7t [place] [address] Care Team Providers Care Order Processing Clerk Name Role Phone Kathryn Jarquin MD Primary Care Provider [phone] Denis Rodgers PharmD Unavailable [phone] Encounter Details Date Type Department Care Team ([facility] st Contact Info) Description 04/02/2024 Orders Only [facility] MEDICINE 230 [place], [place] [phone] Kathryn Jarquin MD 230 [place], [place] [phone] Social History Tobacco Use Types Packs/Day Years [...] Description 05/10/2024 1:00 PM EST Medication Management [address] [address] 05/25/2024 10:30 AM EST Clinical Support [address] [address] Rhonda Valdez, DELFINA 505 [place] [address] documented as of this encounter Goals Goal Patient Goal Type Associated Problems Recent Progress Patient-Stated? Author Blood Pressure < 140/90 Blood Pressure 144/76( 11:43 AM EST) No Denis Rodgers, Swapnil documented as of this encounter Visit Diagnoses Not on filedocumented in this encounter Additional Health Concerns Assessment Noted Time PHQ-9 Depression Total Score: 12 10:26 AM EST documented as of this encounter Care Teams Order Processing Clerk Relationship Specialty Start Date End Date Kathryn Jarquin MD [address] [place] [address] PCP - General Family Medicine 04/04/18 Denis Rodgers, Swapnil [address] [place] [address] Pharmacist Internal Medicine 10/22/22 documented as of this encounter
--- OUTSIDE RECORDS SUMMARY | 2024-05-03 17:09 | XMS_ITS | Clinical Summary ---
Author Organization [facility] Address [address] [facility] [address] [place] [address] Phone Care Team Providers Care Judo Teacher Name Role Phone Kathryn Jarquin MD Primary Care Provider [phone] Allergies No known active allergies Active Problems Problem Noted Date Diagnosed Date Obstructive sleep apnea syndrome 04/11/2023 History of calculus of kidney 01/07/2023 Nonalcoholic steatohepatitis (WILLETT) 01/07/2023 04/11/2023 Cyst of kidney 06/29/2022 04/11/2023 Overview (04/11/2023): Last Assessment & Plan: Findings or renal US on 06/24/22 were d/w patient. I told her this a very small, benign looking cyst, most likely asymptomatic but that she can take tylenol prn pain and fu w PCP No evidence of UTI today. Chronic kidney disease stage 3 06/03/2022 0 04/11/2023 Overview (04/11/2023): Last Assessment & Plan: -follow up with quality assurance representative -avoid nephrotoxic drugs -adjust medication: metformin ER to 500 mg bid - lab review: 08/10/22 K 4.6; BUN 28; Scr 1.0 ; eGFR 56; Bicarb 28 Hypertension 01/20/2015 04/11/2023 Overview (04/11/2023): Last Assessment & Plan: -Goal BP < 140/90 per JNC-8, < 130/80 per ACC/AHA guideline - BP at goal today - Comanaged with Denis Rodgers Rph through CDTM -Work on lifestyle modifications, DASH diet and increase physical activity -continue lisinopril 40 mg daily -continue chlorthalidone 50 mg daily -continue Hydralazine 25 mg BID -Tx Hx: Discontinued Amlodipine 5 mg daily, pt unable to tolerate side effects of leg swelling. -co-managing with our pharmacist / CDTM -follow up in 3 mo or sooner if any problem arises Dyslipidemia 06/02/2012 04/11/2023 Overview (04/11/2023): Last Assessment & Plan: Last lipid panel in May 2021 Current medication: atorvastatin 40 mg at bedtime Repeat lab Continue working on lifestyle modification Obese class I 09/27/2011 04/11/2023 Resolved Problems Problem Noted Date Diagnosed Date Resolved Date Tobacco use and exposure - finding 01/07/2023202304/11/2023 Social History Tobacco Use Types Packs/Day Years Used Date Smoking Tobacco: Never Assessed Comments Unknown Sex and Gender Information Value Date Recorded Sex Assigned at Not on file Legal Sex Female 11:50 AM EDT Gender Identity Not on file Sexual Orientation Not on file Plan of Treatment Health Maintenance Due Date Last Done Comments Breast Cancer Screening 1955 Colorectal Cancer Screening: Annual FOBT 2005 Colorectal Cancer Screening: Colonoscopy 2005 Colorectal Cancer Screening: Sigmoidoscopy 2005 Pneumococcal Vaccine: 65+ Years (2 of 2 - PCV) 11/12/2009 11/12/2008 Diabetes: Hemoglobin A1C 09/03/2023 Diabetes: Ophthalmology Exam 09/03/2023 Diabetes: Pedal Pulse Checked 09/03/2023 Diabetes: Sensory Foot Exam 09/03/2023 Diabetes: Visual Foot Exam 09/03/2023 Influenza Vaccine (#1) 2023 , 02/21/2020, 04/16/2019, Additional history exists Hepatitis B Vaccine Aged Out 06/27/2014, 02/18/2014, 08/20/2013 No longer eligible based on patient's age to complete this topic Insurance FORMERLY [facility] DUAL SNP ([id number]) [place] [id number] [employer] [place] [id number] Care Teams Judo Teacher Relationship Specialty Start Date End Date Kathryn Jarquin MD [address] [place] [address] PCP - General Family Medicine 08/31/23
--- OUTSIDE RECORDS SUMMARY | 2024-05-03 17:09 | XMS_ITS | Encounter Summary ---
Author Organization [employer] Address 75 [facility] 7t [place] [address] Care Team Providers Care Screen Repairer Crusher Name Role Phone Kathryn Jarquin MD Primary Care Provider [phone] Denis Rodgers PharmD Unavailable [phone] Encounter Details Date Type Department Care Team (Late st Contact Info) Description 01/14/2023 Orders Only [facility] MEDICINE [address] [place], [place] [phone] Kathryn Jarquin MD 230 [place] [address] Stage 3b chronic kidney disease (CMS/HCC) (Primary [...] Description 05/10/2024 1:00 PM EST Medication Management [address] [address] 05/25/2024 10:30 AM EST Clinical Support [address] [address] Rhonda Valdez, DELFINA 505 [place] [address] documented as of this encounter Goals Goal [...] (CMS/HCC) documented in this encounter Care Teams Screen Repairer Crusher Relationship Specialty Start Date End Date Kathryn Jarquin MD [address] [place] [address] PCP - General Family Medicine 04/04/18 Denis Rodgers, PharmD [address] [place] [address] Pharmacist Internal Medicine 10/22/22 documented as of this encounter
--- OUTSIDE RECORDS SUMMARY | 2024-05-03 17:09 | XMS_ITS | Encounter Summary ---
Author Organization [employer] Address [address] [facility] [address] 7t [place] [address] Care Team Providers Care Digital Advertising Analyst Name Role Phone Kathryn Jarquin MD Primary Care Provider [phone] Denis Rodgers PharmD Unavailable [phone] Reason for Visit * Reason Onset Date Comments june recall 04/26/2024 Encounter Details Date Type Department Care Team ([facility] st Contact Info) Description 04/26/2024 Telephone [facility] MEDICINE 230 [place], [place] [phone] Mya Garvey [place] june recall Social History Tobacco Use Types Packs/Day Years [...] encounter Miscellaneous Notes * Telephone Encounter - Mya Garvey MA - 04/26/2024 1:29 PM EST .FREDDIE called the patient to schedule a visit and no answer. Message left to call back and schedule. (June /f/u pain) documented in this encounter Plan of Treatment Upcoming Encounters Date Type Department Care Team (Late st Contact Info) Description 05/10/2024 1:00 PM EST Medication Management [address] [address] 05/25/2024 10:30 AM EST Clinical Support [address] [address] Rhonda Valdez, DELFINA 505 [place] [address] documented as of this encounter Goals Goal [...] documented as of this encounter Care Teams Digital Advertising Analyst Relationship Specialty Start Date End Date Kathryn Jarquin MD [address] [place] [address] PCP - General Family Medicine 04/04/18 Denis Rodgers, PharmD [address] [place] [address] Pharmacist Internal Medicine 10/22/22 documented as of this encounter
--- OUTSIDE RECORDS SUMMARY | 2024-05-03 17:09 | XMS_ITS | Clinical Summary ---
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 clonazePAM (KlonoPIN) 2 MG tablet Take 2 mg by mouth at bedtime. 023 Active cloNIDine (Catapres) 0.1 MG tablet TAKE 1 TABLET BY MOUTH TWICE DAILY NEEDED FOR PANIC ATTACK 023 Active FLUoxetine (PROzac) 20 MG capsule 023 Active mirtazapine (Remeron) 45 MG tablet Take 45 mg by mouth at bedtime. 023 Active prazosin (Minipress) 1 MG capsule 023 Active dicyclomine (Bentyl) 20 MG tablet TOME MCKAYLA TABLETA OLIVIER VECES AL D A 023 Active albuterol (ProAir HFA) 108 (90 Base) MCG/ACT inhaler inhale 2 puff by inhalation route every 4 - 6 hours as needed for difficulty breathing, 4 times / day 021 Active glucose blood (FREESTYLE TEST STRIPS) test strip insert 1 by into machine route 3 times every day 020 Active Linzess 290 MCG capsule TOME MCKAYLA C PSULA TODOS LOS D EN LA MA ELIZ 023 Active omeprazole (PriLOSEC) [address] capsule TAKE 1 CAPSULE ORALLY DAILY 023 Active QUEtiapine XR (SEROquel XR) 150 MG 24 hr tablet TAKE 1 TABLET BY MOUTH AT BEDTIME 023 Active Simethicone Ultra Strength 180 MG capsule TOME 1 C PSULA ORALLY 2 TIMES A DAY FOR 30 DAYS 023 Active magnesium oxide (Mag-Ox) 400 (240 Mg) MG tabletIndicatio ns:Hypomagnesem ia TAKE 1 TABLET BY MOUTH EVERY MORNING 30 tablet 1 023 Active Premarin 0.625 MG/GM creamIndication s:Subacute and chronic vaginitis INSERT 1 APPLICATORFUL VAGINALLY ONCE DAILY AT BEDTIME FOR 2 WEEKS, THEN USE 1 APPLICATORFUL TWICE WEEKLY 30 g 3 023 Active Bisacodyl EC 5 MG EC tablet TAKE 2 TABLETS BY MOUTH EVERY DAY AT BEDTIME 023 Active docusate sodium (Colace) 100 MG capsule Take 1 capsule by mouth once daily Active Reguloid 28.3 % powder DISSOLVE 1 TABLESPOONFUL IN 8 OUNCES OF LIQUID AND DRINK TWICE DAILY DIRECTED Active albuterol (2.5 MG/3ML) 0.083% nebulizer solution INHALE 1 AMPULE USING A NEBULIZER EVERY 6 HOURS NEEDED FOR SHORTNESS OF BREATH 90 mL 1 024 Active hydrOXYzine pamoate (Vistaril) 25 MG capsule Take 1 capsule (25 mg) by mouth every 6 (six) hours if needed for anxiety for up to 10 days. 30 capsule 024 Active sodium bicarbonate 650 MG tablet Take 650 mg by mouth. 024 Active amLODIPine (Norvasc) 5 MG tablet Take 1 tablet (5 mg) by mouth Once per day. 90 tablet 3 024 Active glipiZIDE (Glucotrol) 5 MG tablet TAKE 1 TABLET BY MOUTH TWICE DAILY IN THE MORNING AND IN THE EVENING BEFORE MEALS 180 tablet 3 024 Active atorvastatin (Lipitor) 80 MG tablet TAKE 1 TABLET BY MOUTH AT BEDTIME 90 tablet 3 024 Active Aspirin EC Adult Low Dose 81 MG EC tablet TAKE 1 TABLET BY MOUTH AT BEDTIME 90 tablet 3 024 Active chlorthalidone (Hygroton) 25 MG tabletIndicatio ns:Primary hypertension TAKE 1 TABLET BY MOUTH EVERY MORNING 90 tablet 3 024 Active naloxone (Narcan) 4 mg/0.1 mL nasal spray Administer 1 spray (4 mg) into affected nostril(s) if needed for opioid reversal or respiratory depression. May repeat every 2-3 minutes if needed, alternating nostrils, until medical assistance becomes available. 2 each 024 2024 Active levothyroxine (Synthroid, Levoxyl) 50 MCG tabletIndicatio ns:Hypothyroidi sm (acquired) TAKE 1 TABLET BY MOUTH EVERY MORNING 90 tablet 2 Active D3-1000 25 MCG (1000 UT) capsule TAKE 1 CAPSULE BY MOUTH EVERY MORNING 90 capsule 2 Active hydrALAZINE (Apresoline) 25 MG tablet TAKE 1 TABLET BY MOUTH TWICE DAILY IN THE MORNING AND IN THE EVENING WITH FOOD 180 tablet 2 Active oxyCODONE (Roxicodone) 5 MG immediate release tabletIndicatio ns:Upper back pain,Chronic pain of both knees,Chronic female pelvic pain,Chronic pain syndrome Take 1 tablet (5 mg) by mouth if needed at bedtime for severe pain for up to 28 days. 28 tablet 025 2024 Active levothyroxine (Synthroid, Levoxyl) 50 MCG tabletIndicatio ns:Hypothyroidi sm (acquired) TAKE 1 TABLET BY MOUTH EVERY MORNING 90 tablet 3 024 2024 Discontinued Vitamin D High Potency 25 MCG (1000 UT) capsule TAKE 1 CAPSULE BY MOUTH EVERY MORNING 90 capsule 2 024 2024 Discontinued hydrALAZINE (Apresoline) 25 MG tablet TAKE 1 TABLET BY MOUTH TWICE DAILY IN THE MORNING AND IN THE EVENING WITH FOOD 180 tablet 2 024 2024 Discontinued oxyCODONE (Roxicodone) 5 MG immediate release tabletIndicatio ns:Upper back pain,Chronic pain of both knees,Chronic female pelvic pain,Chronic pain syndrome Take 1 tablet (5 mg) by mouth if needed at bedtime for severe pain for up to 28 days. 28 tablet 024 2024 Discontinued(R eorder (will not trigger notification to Pharmacy)) Active Problems Problem Noted Date Diagnosed Date RTA (renal tubular acidosis) 11/10/2023 Urinary retention 05/08/2023 Assessment & Plan (05/08/2023 11:58 AM EST): - discontinue or minimize medications that have anticholinergic effect - discontinue oxybutynin - add tamsulosin for few days (patient is on prazosin by psychiatrist) - advised to go to ED if no urination for > 24 hours - urgent referral to urologist Menopause 04/26/2023 04/26/2023 Osteopenia 04/26/2023 04/26/2023 Assessment & Plan (05/08/2023 12:10 PM EST): - DEXA in September 2022 showed the lowest T-score of -1.6 in lumbar spine - continue adequate calcium and vitamin D intake - encourage weight bearing exercise and fall precaution - bisphosphonate is contraindicated due to CKD Tubular adenoma of colon 04/26/2023 024 Assessment & Plan (05/08/2023 12:01 PM EST): - colonoscopy on 04/15/23 hyperplastic polyp - next colonoscopy in 5 years Obstructive sleep apnea syndrome 04/11/2023 04/26/2023 History of smoking 01/07/2023 Metabolic dysfunction-associated steatohepatitis (MASH) 01/07/2023 Assessment & Plan (04/05/2024 5:43 AM EST): - followed by [facility] - Work on achieving healthy weight and diet Assessment & Plan (05/08/2023 12:06 PM EST): - followed by [facility] - Work on achieving healthy weight and diet Knee pain 01/07/2023 Assessment & Plan (04/05/2024 5:49 AM EST): - evaluate with X-ray - achieve healthy weight - improve physically activity Hypomagnesemia 01/07/2023 History of renal calculi 01/07/2023 Chronic idiopathic constipation 01/07/2023 Assessment & Plan (04/05/2024 5:46 AM EST): - Takes suppositories to help her bowel movements - Patient currently denies symptom and states oxycodone does not affect her BM Assessment & Plan (05/08/2023 12:02 PM EST): - colonoscopy on 04/15/23 - fiber-rich diet Right hip pain 12/02/2022 Abdominal pain, lower 08/09/2022 Assessment & Plan (04/05/2024 5:40 AM EST): - Takes non-prescribed oxycodone to try and relieve the pain and help her sleep - Will start at low dose oxycodone only one at bedtime; discussed about its judicious use and the importance of attending [facility] [facility] appt Assessment & Plan (10/30/2022 4:06 PM EDT): - seen by urogynecologist, socially responsible investment adviser, general surgeon, and GI - Will check UA / UCx - Most recent CT Scan on 07/26/22 showed severe diverticulosis of the colon and question mild diverticulitis of the sigmoid colon. Small amount of air in the bladder. Differential would include infection and fistula. Upper normal-size gallbladder. No gallstones seen by CT scan. - Follow up with UroGYN as scheduled in Nov 2022 - Check the status of colonoscopy Assessment & Plan (08/12/2022 4:18 PM EDT): - seen by socially responsible investment adviser, general surgeon, and GI - Will check UA / UCx - Most recent CT Scan on 07/26/22 showed severe diverticulosis of the colon and question mild diverticulitis of the sigmoid colon. Small amount of air in the bladder. Differential would include infection and fistula. Upper normal-size gallbladder. No gallstones seen by CT scan. Urge incontinence 08/09/2022 Assessment & Plan (05/08/2023 12:09 PM EST): - Hx OAB, on oxybutynin, previously following with Dr. Peñaloza, last seen in 2020 - seen by [facility] in August 2022, upcoming follow-up appt - check UA/ UCx - hold restarting oxybutynin due to current urinary retention Assessment & Plan (10/30/2022 4:09 PM EDT): - Hx OAB, on oxybutynin, previously following with Dr. Peñaloza, last seen in 2020 - seen by [facility] in August 2022, upcoming follow-up appt - check UA/ UCx - consider restarting oxybutynin with caution due to her psychiatric medications Assessment & Plan (08/09/2022 12:37 PM EDT): - Hx OAB, on oxybutynin, previously following with Dr. Peñaloza, last seen in 2020 - refer back to urologist - check UA/ UCx - consider restarting oxybutynin with caution due to her psychiatric medications Subacute vaginitis 06/29/2022 Assessment & Plan (06/29/2022 2:35 PM EDT): Most likely atrophic vaginitis. No UTI. Due to absent uterus, I will start premarin cream daily x 2w then BIW thereafter for at least 3m and she should fu with PCP Cyst of kidney, acquired 06/29/2022 Overview (04/26/2023): Last Assessment & Plan: Findings or renal US on 06/24/22 were d/w patient. I told her this a very small, benign looking cyst, most likely asymptomatic but that she can take tylenol prn pain and fu w PCP No evidence of UTI today. Assessment & Plan (06/29/2022 2:37 PM EDT): Findings or renal US on 06/24/22 were d/w patient. I told her this a very small, benign looking cyst, most likely asymptomatic but that she can take tylenol prn pain and fu w PCP No evidence of UTI today. Hypothyroidism 06/03/2022 Assessment & Plan (04/05/2024 5:53 AM EST): -Negative thyroid peroxidase antibody -Current replacement: levothyroxine 75 mcg daily -tremor today -check TSH -adjust LT4 accordingly Assessment & Plan (05/08/2023 12:11 PM EST): -Negative thyroid peroxidase antibody -Current replacement: levothyroxine 75 mcg daily -tremor today -check TSH -adjust LT4 accordingly Assessment & Plan (10/30/2022 4:17 PM EDT): -Negative thyroid peroxidase antibody -Current replacement: levothyroxine 75 mcg daily -tremor today -check TSH -adjust LT4 accordingly Assessment & Plan (08/09/2022 11:49 AM EDT): -Negative thyroid peroxidase antibody -Current replacement: levothyroxine 75 mcg daily -tremor today -check TSH -adjust LT4 accordingly Assessment & Plan (06/03/2022 2:26 AM EST): -Negative thyroid peroxidase antibody -Current replacement: levothyroxine 75 mcg daily -tremor today -check TSH -adjust LT4 accordingly Stage 3b chronic kidney disease 06/03/2022 Assessment & Plan (04/05/2024 5:47 AM EST): -following with neonatal doctor, last seen in Nov 2023 -avoid nephrotoxic drugs -no longer on metformin -consider SGLT2i Assessment & Plan (05/08/2023 12:00 PM EST): -following with neonatal doctor -avoid nephrotoxic drugs -no longer on metformin -clarify with GI whether patient needs to be on PPI Assessment & Plan (10/30/2022 4:11 PM EDT): -follow up with neonatal doctor -avoid nephrotoxic drugs -adjust medication: metformin ER to 500 mg bid - lab review: 08/10/22 K 4.6; BUN 28; Scr 1.0 ; eGFR 56; Bicarb 28 Assessment & Plan (08/09/2022 11:50 AM EDT): -follow up with neonatal doctor -avoid nephrotoxic drugs -adjust medication: metformin ER to 500 mg bid Assessment & Plan (06/03/2022 2:31 AM EST): -refer to neonatal doctor -avoid nephrotoxic drugs -adjust medication: metformin ER to 500 mg bid Diverticulitis 06/01/2022 Assessment & Plan (05/08/2023 12:21 PM EST): Recurrent. Most recently diagnosed and treated in Jan 2023 - Treated with metronidazole and levofloxacin, then again with metronidazole and TMP/SMX - Seen by surgeon, and was advised medical management with GI -Patient advised to be cautious with TMP/SMX due to CKD Assessment & Plan (10/30/2022 4:19 PM EDT): Recurrent. Most recently diagnosed on 07/26/22 -Initially treated with Augmentin, -Follow-up appt with GI and was extended Abx with Metronidazole and Bactrim -Patient advised to be cautious with Bactrim due to CKD -No surgery indicated but she is to have colonoscopy with GI Assessment & Plan (08/12/2022 4:24 PM EDT): Recurrent. Most recently diagnosed on 07/26/22 -Initially treated with Augmentin, -Follow-up appt with GI and was extended Abx with Metronidazole and Bactrim -Patient advised to be cautious with Bactrim due to CKD -No surgery indicated but she is to have colonoscopy with GI Assessment & Plan (06/01/2022 3:53 PM EST): -Recurrent -Seen in ED on 07/10/21 d/t persistant abd pain. CT Scan showed mild- diverticulitis without perforation. Rx: metronidazole and ciprofloxacin. -Evaluated by GI after the treatment. -Requested her GI to evaluate with colonoscopy ; last colonoscopy in 2012 Telogen effluvium 09/09/2017 Chronic pelvic pain in female 09/13/2016 Assessment & Plan (04/05/2024 5:39 AM EST): -She threatens that she would [place] PCP for not treating her pain -She is already taking oxycodone from the street -She states she understand the side effect of medication -Her stories seem to be inconsistent, but it may be due to her low health literacy and cognitive level -Agreed to start oxycodone under close monitoring with [facility] [facility] [facility] program; patient verbalized understanding -Discussed about increased risk of side effect with concurrent use of BZD; patient verbalized understanding -Patient states she is not constipated Recurrent UTI 11/17/2015 Assessment & Plan (05/08/2023 12:08 PM EST): -most recent UTI in Dec 2022. urine culture grew Klebsiella, resistant to ampicillin. Rx levofloxacin. -seen by urogyn on 08/20/22, upcoming follow-up appointment -check the status of follow up with UroGyn. Assessment & Plan (10/30/2022 4:08 PM EDT): -most recent UTI in Jan 2022, E.coli resistant to amp, indeterminate to levofloxacin, treated with Bactrim -seen by urogyn on 08/20/22, upcoming follow-up appt Assessment & Plan (08/12/2022 4:20 PM EDT): -most recent UTI in Jan 2022, E.coli resistant to amp, indeterminate to levofloxacin, treated with Bactrim -refer back to urologist Assessment & Plan (06/03/2022 2:19 AM EST): -most recent UTI in Jan 2022, E.coli resistant to amp, indeterminate to levofloxacin, treated with Bactrim -refer back to urologist Thyroid nodule 06/30/2015 Lung nodule 05/25/2015 GERD (gastroesophageal reflux disease) 5 Assessment & Plan (05/08/2023 12:02 PM EST): - followed by [facility] - check whether patient needs to be on PPI or can be changed to H2-hao as recommended by neonatal doctor Generalized anxiety disorder with panic attacks 01/23/2015 Assessment & Plan (04/05/2024 5:54 AM EST): -tremor, patient is able to stop tremor voluntarily -check TSH Assessment & Plan (06/03/2022 2:23 AM EST): -tremor -check TSH Irritable bowel syndrome 01/23/2015 Assessment & Plan (04/05/2024 5:45 AM EST): GI: [facility], last visit in Apr 2023 Current medication: Linzess 290 mg daily Normal EGD and colonoscopy in [facility] in Jan 2013. Colonoscopy in Apr 2023 by [facility], hyperplastic polyp. Repeat in 5 years. Assessment & Plan (10/30/2022 4:20 PM EDT): GI: [facility], last visit in 08/04/22 Current medication: Linzess 290 mg daily Normal EGD and colonoscopy in [facility] in Jan 2013. Anticipating another colonoscopy soon Assessment & Plan (08/12/2022 4:19 PM EDT): GI: [facility], last visit in 08/04/22 Current medication: Linzess 290 mg daily Normal EGD and colonoscopy in [facility] in Jan 2013. Anticipating another colonoscopy soon Assessment & Plan (06/03/2022 2:15 AM EST): GI: [facility], last visit in 08/11/21 Current medication: Linzess 290 mg daily Normal EGD and colonoscopy in [facility] in Jan 2013. Pt has to reschedule colonoscopy with GI Specialist Encouraged medication compliance Pt seems to have changed GI; will confirm Recurrent major depression 01/23/2015 Assessment & Plan (04/05/2024 5:54 AM EST): -S provider: [facility]D -Continue current medications: clonazepam; fluoxetine; prazosin; clonidine; quetiapine Assessment & Plan (05/08/2023 12:22 PM EST): -S provider: [facility] -Continue current medications: clonazepam; fluoxetine; prazosin; clonidine; quetiapine Assessment & Plan (10/30/2022 4:18 PM EDT): -S provider: [facility]D -Continue current medications: clonazepam; fluoxetine; prazosin; clonidine; quetiapine Assessment & Plan (06/03/2022 2:22 AM EST): -[facility] provider: [facility] -Continue current medications: clonazepam; fluoxetine; prazosin; clonidine; quetiapine Asthma 01/23/2015 Assessment & Plan (06/20/2023 5:43 AM EDT): >>ASSESSMENT AND PLAN FOR MODERATE PERSISTENT ASTHMA WRITTEN ON 06/01/2022 4:05 PM BY MARIPOSA CHOI -pt is using albuterol -consider LABA/ICS prn use -work on smoking cessation Assessment & Plan (06/20/2023 5:43 AM EDT): >>ASSESSMENT AND PLAN FOR MODERATE PERSISTENT ASTHMA WRITTEN ON 08/09/2022 11:46 AM BY MARIPOSA CHOI -pt is using albuterol -consider LABA/ICS prn use -work on smoking cessation HTN (hypertension) 01/20/2015 Assessment & Plan (04/05/2024 5:43 AM EST): -Goal BP < 140/90 per JNC-8, < 130/80 per ACC/AHA guideline. Fluctuating BP (hypertensive previously, lately hypotensive resulting renal hypoperfusion) - BP slightly elevated today, but recently hypotensive and home BP normal per patient. - Comanaged with Denis Rodgers [facility] through CDTM and neonatal doctor -Work on lifestyle modifications, DASH diet and increase physical activity -continue amlodipine 5 mg daily -continue chlorthalidone 12.5 mg daily -continue Hydralazine 25 mg BID (neonatal doctor seems to be unaware of medication, will consider simplifying medication) -consider retial of ALEXIA inhibitors, either ACEI or ARB. -Tx Hx: Discontinued Amlodipine 5 mg daily, pt unable to tolerate side effects of leg swelling, yet restarted when lisinopril was discontinued. Assessment & Plan (05/08/2023 12:05 PM EST): -Goal BP < 140/90 per JNC-8, < 130/80 per ACC/AHA guideline. Fluctuating BP (hypertensive previously, lately hypotensive resulting renal hypoperfusion) - BP slightly elevated today, but recently hypotensive and home BP normal per patient. - Comanaged with Denis Rodgers RPh through CDTM and neonatal doctor -Work on lifestyle modifications, DASH diet and increase physical activity -continue lisinopril 20 mg daily -continue chlorthalidone 12.5 mg daily -continue Hydralazine 25 mg BID (neonatal doctor seems to be unaware of medication, will consider simplifying medication) -Tx Hx: Discontinued Amlodipine 5 mg daily, pt unable to tolerate side effects of leg swelling. -follow up in 3 mo or sooner if any problem arises Assessment & Plan (10/30/2022 4:06 PM EDT): -Goal BP < 140/90 per JNC-8, < [...] mo or sooner if any problem arises Assessment & Plan (08/09/2022 11:26 AM EDT): -Goal BP < 140/90 per JNC-8, < 130/80 per ACC/AHA guideline - BP at goal today -Work on lifestyle modifications, DASH diet and increase physical activity -continue lisinopril 40 mg daily -continue chlorthalidone 50 mg daily -continue Hydralazine 25 mg BID -Tx Hx: Discontinued Amlodipine 5 mg daily, pt unable to tolerate side effects of leg swelling. -co-managing with our pharmacist / CDTM -follow up in 3 mo or sooner if any problem arises Assessment & Plan (06/03/2022 2:14 AM EST): -Goal BP < 140/90 per JNC-8, < 130/80 per ACC/AHA guideline - BP at goal today -Work on lifestyle modifications, DASH diet and increase physical activity -continue lisinopril 40 mg daily -continue chlorthalidone 50 mg daily -continue Hydralazine 25 mg BID -Tx Hx: Discontinued Amlodipine 5 mg daily, pt unable to tolerate side effects of leg swelling. -co-managing with our pharmacist / CDTM -follow up in 3 mo or sooner if any problem arises Type 2 diabetes mellitus 01/20/2015 Assessment & Plan (04/05/2024 5:53 AM EST): A1C has worsened 10.4% today, 03/29/24, from 6.8% on 05/02/23 Discussed about the importance of lifestyle modifications Current treatment: Glipizide 5 mg bid. Will consider switching to SGLT2i and GLP1RA. Treatment Hx: Previously on Metformin which was discontinued due to worsening renal function Relative contraindication to SGLT-2 inhibitor due to recurrent UTI/vaginal candidiasis / UI. Last eye exam: July 2020. s/p cataract surgery. Pt will call to schedule appt Last foot exam: 05/02/23 Last microalbumin test: 03/29/24 no microalbuminuuria Last lipid profile: 03/29/24 may need intensifying therapy by adding zetia. Questionable adherence. Assessment & Plan (05/08/2023 12:19 PM EST): A1C 6.8% on 05/02/23, stable 7.1% on 10/26/22, 7.0% on 08/09/22, stable Discussed about the importance of lifestyle modifications Current treatment: Glipizide 5 mg bid Treatment Hx: Previously on Metformin which was discontinued due to worsening renal function Relative contraindication to SGLT-2 inhibitor due to recurrent UTI/vaginal candidiasis / UI. Last eye exam: July 2020. s/p cataract surgery. Pt will call to schedule appt Last foot exam: 05/02/23 Last microalbumin test: 01/13/23 UACR 5 Last lipid profile: 01/13/23 total cholesterol 251; triglyceride 154; LDL 168; HDL 53 Follow-up in 3 mo Assessment & Plan (10/30/2022 4:13 PM EDT): A1C 7.1% on 10/26/22, 7.0% on 08/09/22, stable Discussed about the importance of lifestyle modifications Current treatment: Metformin 500 mg bid; prandin 1 mg 3x/day Need to be cautious with Metformin due to her declining renal function. Discussed alternative medication, hesitant about starting today. Relative contraindication to SGLT-2 inhibitor due to recurrent UTI/vaginal candidiasis / UI. Last eye exam: July 2020. s/p cataract surgery. Pt will call to schedule appt Last foot exam: 06/18/20 Last microalbumin test: 11/28/19 UACR 15 Last FLP:05/05/21 TC 191; TG 217; HDL 51; LDL 113. Follow-up in 3 mo Assessment & Plan (08/12/2022 4:21 PM EDT): A1C 7.0% on 08/09/22, improving from 7.3% on 06/01/22 Discussed about the importance of lifestyle modifications Current treatment: Metformin 500 mg bid; prandin 1 mg 3x/day Need to be cautious with Metformin due to her declining renal function. Discussed alternative medication, hesitant about starting today. Relative contraindication to SGLT-2 inhibitor due to recurrent UTI/vaginal candidiasis / UI. Last eye exam: July 2020. s/p cataract surgery. Pt will call to schedule appt Last foot exam: 06/18/20 Last microalbumin test: 11/28/19 UACR 15 Last FLP:05/05/21 TC 191; TG 217; HDL 51; LDL 113. Follow-up in 3 mo Assessment & Plan (06/03/2022 2:20 AM EST): A1C 7.3% on 06/01/22, improved from 8.1% on 11/25/21 Discussed about the importance of lifestyle modifications Current treatment: Metformin 1000 mg bid; prandin 1 mg 3x/day Need to be cautious with Metformin due to her declining renal function. Discussed alternative medication, hesitant about starting today. Relative contraindication to SGLT-2 inhibitor due to recurrent UTI/vaginal candidiasis / UI. Last eye exam: July 2020. s/p cataract surgery. Pt will call to schedule appt Last foot exam: 06/18/20 Last microalbumin test: 11/28/19 UACR 15 Last FLP:2/1/22 TC 191; TG 217; HDL 51; LDL 113. Follow-up in 3 mo Dyslipidemia 06/02/2012 Assessment & Plan (04/05/2024 5:55 AM EST): Last lipid profile: 03/29/24 Current medication: atorvastatin 80 mg at bedtime Consider adding Zetia Check medication adherence before adding Zetia Continue working on lifestyle modification Assessment & Plan (05/08/2023 12:22 PM EST): Last lipid profile: 01/13/23 total cholesterol 251; triglyceride 154; LDL 168; HDL 53 Current medication: atorvastatin 80 mg at bedtime Continue working on lifestyle modification Assessment & Plan (10/30/2022 4:19 PM EDT): Last lipid panel in May 2021 Current medication: atorvastatin 40 mg at bedtime Repeat lab Continue working on lifestyle modification Assessment & Plan (06/03/2022 2:24 AM EST): Last lipid panel in May 2021 Current medication: atorvastatin 40 mg at bedtime Repeat lab Continue working on lifestyle modification Depression 09/27/2011 Class 1 obesity 09/27/2011 Resolved Problems Problem Noted Date Diagnosed Date Resolved Date Suprapubic abdominal pain 01/07/2023 Assessment & Plan (03/26/2023 10:15 PM EST): Pt w urinary symptoms ,pt has hx of recurrent UTIs as well reports pain in RLQ described as similar as when having bouts of diverticulitis Here today urine dipstick is neg -02/2023 cr 1.5 GFR 34 -Pelvic US 12/2022 : Uterus and adnexa are both surgically absent Trace amount of free fluid in the dependent pelvis of uncertain significance. -CT and/pelvis 12/2022 There is marked colonic diverticulosis. There is fat stranding adjacent to the sigmoid colon, and a crescentic low-attenuation fluid collection is seen in the dependent pelvis abutting the posterior margin of the mid sigmoid colon. The crescentic configuration of this fluid collection favors free fluid, rather than an organized abscess. Together, the findings suggest possible acute diverticulitis. -Ucx 12/2022 Klebsiella pneumoniae Quant > 100,000 cfu/mL Klebsiella pneumoniae: Ampicillin >=32(R) Klebsiella pneumoniae: Ceftriaxone <=0.25(S) Klebsiella pneumoniae: Gentamicin <=1(S) Klebsiella pneumoniae: Levofloxacin <=0.12(S) Klebsiella pneumoniae: Nitrofurantoin <=16(S) Klebsiella pneumoniae: Trimethoprim/Sulfamethoxazole <=20(S) Specimen Source: Urine clean catch Pt took ATB this am so UA findings and cx obtained today may no be informative Will tx for possible UTI and to cover as well for diverticulitis. Pt;s previous u cx was resistant to ampicillin so will hold on Augmentin use. -start levofloxacin 500 mg initial dose, then 250 mg every 24 hours for 7 days + Metronidazole 500 mg Q 12 hours ( adjusted both renal function) -Checked w pharmacy and no major interactions -- except risk w quinolones for QTC prolongation -pt tolerated med well in the past ATB for 7 dauys for possible diverticulitis , UTI tx -Alarm signs and symptoms discussed w pt in length -no current concern for appendicitis but to go to ER if not improving w ATB -sent UA w reflex cx-event if come nesg will continue cause ATB tx for possible divericulitis -f w GI w planned fo colonscopy w GI 04/15/2023 Right knee pain 12/02/2022 04/05/2024 COVID-19 07/30/2022 08/12/2022 Encounters Date Type Department Care Team Description 05/01/2024 Telephone [facility] [address] [place] [address] Kathryn Jarquin MD 04/30/2024 Refill [facility] [address] [place] [address] Kathryn Jarquin MD Upper back pain; Chronic pain of both knees; Chronic female pelvic pain; Chronic pain syndrome 04/30/2024 Telephone [facility] [address], [place] [phone] Kathryn Jarquin MD Nurse Triage 04/26/2024 Telephone [facility] [address] [place] [address] Mya Garvey MA june recall 04/25/2024 Refill [facility] [address], [place] [phone] Kathryn Jarquin MD Hypothyroidism (acquired) 04/16/[address] [address] Kathryn Jarquin MD Med Refill 04/02/2024 Orders Only [address] [address] Kathryn Jarquin MD 04/01/[address] [address] Kathryn Jarquin MD Primary hypertension 03/30/2024 Orders Only [facility] External Provider, [facility] 03/30/[address] [address] Kathryn Jarquin MD xray results 03/29/2024 10:15 AM EST Office Visit [address] [address] Kathryn Jarquin MD Hypertension, unspecified type (Primary Dx); Metabolic dysfunction-associated steatohepatitis (MASH); Chronic idiopathic constipation; Irritable bowel syndrome, unspecified type; Stage 3b chronic kidney disease ([facility]/HCC); Type 2 diabetes mellitus with stage 3b chronic kidney disease, without long-term current use of insulin ([facility]/HCC); Hypothyroidism, unspecified type; Dyslipidemia; Generalized anxiety disorder with panic attacks; Moderate episode of recurrent major depressive disorder (CMS/HCC); Upper back pain; Chronic pain of both knees; Encounter for immunization; Chronic female pelvic pain; Chronic pain syndrome; Abdominal pain, lower; Chronic pelvic pain in female; Dietary counseling; Exercise counseling; Class 1 obesity due to excess calories with serious comorbidity and body mass index (BMI) of 32.0 to 32.9 in adult 03/29/2024 Telephone [facility] [address] [place] [address] Rhonda Valdez, DELFINA 03/29/[address] [phone] Kathryn Jarquin MD Appointment Request 03/29/2024 Travel 03/26/[address] [phone] Mya Garvey MA chart prep 03/26/2024 Abstract [facility] [address] [place] [address] Mya Garvey MA 03/16/2024 Telephone [facility] [address] [place] [address] Kathryn Jarquin MD Nurse Triage 02/01/2024 Telephone [facility] [address], [place] [phone] Kathryn Jarquin MD No Show from Last 3 Months Immunizations Name Administration Dates Next Due Hep A, Adult 03/29/2024 Hep B, adult 06/27/2014,02/18/2014,08/20/2013 Influenza High-dose Quadriva lent Preservative Free 01/07/2023 Influenza injectable quadriv alent IIV4 with preservative 02/06/2018,01/11/2017,12/29/2015,01/23 Influenza injectable quadriv alent preservative free 03/09/2021,02/21/2020 Influenza, High Dose Seasona l, Preservative Free 04/16/2019 Influenza, IIV3, injectable 02/18/2014,1 ,02/04/2010,03/25 Influenza, Split (incl. yumiko fied surface antigen) 06/02/2012 Influenza, seasonal, injecta ble, preservative free 03/29/2024 Moderna Covid-19 Vaccine 12+ 11/25/2021,07/05/19 21,06/06/2020 Pfizer Covid-19 Vaccine 12+ 05/02/2023 Pneumococcal Conjugate PCV 20 05/02/2023 Pneumococcal Polysaccharide PPSV23 11/12/2008 TD (adult), 2 Lf tetanus tox oid, preservative free, adsorbed 11/12/2008 Tdap 05/02/2023,06/02/2012 Zoster, Recombinant 01/07/2023 Social History Tobacco Use Types Packs/Day Years Used Date Smoking Tobacco: Former Cigarettes Passive Smoke Exposure: Past Smokeless Tobacco: Never Tobacco Cessation:Counseling Given: Not Answered Depression Answer Date Recorded Patient Health Questionnaire-9 [...] Orientation Straight 02/01/2022 10 :14 AM EDT Last Filed Vital Signs Vital Sign Reading Time Taken Comments Blood Pressure 144/76 03/29/2024 11:43 AM EST Pulse 88 03/29/2024 10:26 AM EST Temperature 36.3 ??C (97.3 ??F) 03/29/2024 10:[address] Respiratory Rate 19 03/29/2024 10:26 AM EST Oxygen Saturation 96% 03/29/2024 10:26 AM EST Inhaled Oxygen Concentration - - Weight 70.6 kg (155 lb 9.6 oz) 03/29/2024 10:26 AM EST Height 147.3 cm (4' 10 ) 05/02/2023 3:13 PM EST Body Mass Index 32.52 05/02/2023 3:13 PM EST Plan of Treatment Upcoming Encounters Date Type Department Care Team (Late st Contact Info) Description 05/10/2024 1:00 PM EST Medication Management [facility] [address] [place] [address] 05/25/2024 10:30 AM EST Clinical Support [facility] [address] [place] [address] Rhonda Valdez, RN [address] [place] [address] Health Maintenance Due Date Last Done Comments CT Colonography 1955 FIT DNA/Cologuard 1955 FIT 1955 FOBT 1955 Sigmoidoscopy 1955 RSV Patients and Patients Aged 60 years or older (1 - Risk 60-74 years 1-dose series) 2016 Zoster Vaccines (2 of 2) 03/04/2023 01/07/2023 COVID-19 Vaccine ( season) 2023 05/02/2023, 11/25/2021, 07/04/2020, Additional history exists SDOH Screening 06/12/2024 06/13/2023 Diabetes: Hemoglobin A1C 06/27/2024 024, 05/02/2023, 10/26/2022, Additional history exists Mammogram 09/13/2024 09/13/2022, 01/03, 01/22/2020, Additional history exists Depression Monitoring (PHQ-9) 09/27/2024 03/29/2024, 03/29/2024 Hepatitis A Vaccines (2 of 2 - Risk 2-dose series) 09/27/2024 03/29/2024 Alcohol/Substance Use Screening 03/29/2025 03/29/2024 Depression Screening 03/29/2025 03/29/2024, 03/29/20 24 Diabetes: Foot Exam 03/29/2025 03/29/2024 Lipid Panel 03/29/2025 03/29/2024, 01/02, 05/15/2021, Additional history exists Tobacco Screening 03/29/2025 03/29/2024 Eye Exam 11/17/2025 11/18/2023 Colonoscopy 09/10/2032 09/10/2022 Colorectal Cancer Screening 09/10/2032 DTaP/Tdap/Td Vaccines (3 - Td or Tdap) 05/02/2033 05/02/2023, 06/02/2012, 11/12/2008 Hepatitis B Vaccines Completed 06/27/2014, 02/18/2014, 08/20/2013 Hepatitis C Screening Completed 04/18/2019 Pneumococcal Vaccine: 50+ Years Completed 05/02/2023, 11/12/2008 Influenza Vaccine Completed 03/29/2024, , 03/09/2021, Additional history exists HIB Vaccines Aged Out No longer eligi ble based on patient's age to complete this topic HPV Vaccines Aged Out No longer eligi ble based on patient's age to complete this topic IPV Vaccines Aged Out No longer eligi ble based on patient's age to complete this topic Meningococcal Vaccine Aged Out No nasrin alexander eligible based on patient's age to complete this topic RSV under 20 months Aged Out No longe r eligible based on patient's age to complete this topic Rotavirus Vaccines Aged Out No longer eligible based on patient's age to complete this topic Goals Goal Patient Goal Type Associated Problems Recent Progress Patient-Stated? Author Blood Pressure < 140/90 Blood Pressure 144/76( 024 11:43 AM EST) No Denis Rodgers, Swapnil Procedures Procedure Name Priority Date/Time Associated Diagnosis Comments US PELVIS TRANSVAGINAL Routine 4 2:21 PM EST DRUG MONITOR, PANEL 1, SCREEN, URINE Routine 03/29/2024 2:58 PM EST Upper back pain Chronic pain of both knees ALBUMIN, RANDOM URINE W/CREATININE Routine 03/29/2024 2:58 PM EST Type 2 diabetes mellitus with stage 3b chronic kidney disease, without long-term current use of insulin ([facility]) XR KNEE 3 VIEWS LEFT Routine 03/29/2024 12:07 PM EST Chronic pain of both knees XR KNEE 3 VIEWS RIGHT Routine 03/29/2024 12:07 PM EST Chronic pain of both knees XR THORACIC SPINE 2 VIEWS Routine 03/29/2024 12:07 PM EST Upper back pain TSH W/REFLEX TO FT4 Routine 03/29/2024 1 1:49 AM EST Hypothyroidism, unspecified type LIPID PANEL WITH REFLEX TO DIRECT LDL Routine 03/29/2024 11:49 AM EST Type 2 diabetes mellitus with stage 3b chronic kidney disease, without long-term current use of insulin (CMS/HCC) MAGNESIUM Routine 03/29/2024 11:49 AM EST Hypomagnesemia COMPREHENSIVE METABOLIC PANEL Routine 03/29/2024 11:49 AM EST Type 2 diabetes mellitus with stage 3b chronic kidney disease, without long-term current use of insulin (CMS/HCC) POCT GLYCOSYLATED HEMOGLOBIN (HGB A1C) Routine 03/29/2024 10:40 AM EST Type 2 diabetes mellitus with stage 3b chronic kidney disease, without long-term current use of insulin (CMS/HCC) POCT GLUCOSE Routine 03/29/2024 10:36 AM EST Type 2 diabetes mellitus with stage 3b chronic kidney disease, without long-term current use of insulin (CMS/HCC) DIABETES EYE EXAM Routine 11/18/2023 MAMMOGRAPHY Routine 09/13/2022 COLONOSCOPY Routine 09/10/2022 2:43 PM EDT ZZZ HISTORICAL HEPATITIS C ANTIBODY RFLX Routine 04/18/2019 8:30 AM EST from Last 3 Months or Most Recently Relevant to Health Maintenance Results * US Pelvis Transvaginal (03/30/2024 2:21 PM EST) Anatomical Region Laterality Modality Pelvis Ultrasound 03/30/2024 2:21 PM EST Narrative 04/13/2024 11:43 AM EST ? [place] [facility] ?[address] ?[place] [address] ? Ultrasound Report ? Signed ? Patient: Moran,Wen ?MR#: [id number] ?? 5803 ? : 1955 ?Acct:[id number] ? Age/Sex: 68 / F ?ADM Date: 03/30/24 ? Loc: HO.US ? Attending Dr: Jaylen Cotton MD ? Ordering Physician: Jaylen Cotton MD ?? Date of Service: 03/30/24 ?? Procedure(s): US pelvic and transvaginal ?? Accession Number(s): [id number] ? cc: Kathryn Jarquin MD; Jaylen Cotton MD ? EXAMINATION: ? US PELVIS [...] Mitchell MD ??04/13/2024 11:41 AM EST RP ? Dictated By: ?Lazaro Mitchell MD ? Signed By: ?<Electronically signed by Lazaro Mitchell MD in OV> ?01/10/25 1141 ? DD/DT: 03/30/ 1421 ? TD/TT: 03/30/ 1427 ? Manager Quality Improvement: ? Procedure Note Froilan, Image - 04/13/[address] [address] Ultrasound Report Signed Patient: Devin Moran#: [id number] : 7Acct:[id number] Age/Sex: 68 / FADM Date: 03/30/24 Loc: HO.US Attending Dr: Jaylen Cotton MD Ordering Physician: Jaylen Cotton MD Date of Service: 03/30/24 Procedure(s): US pelvic and transvaginal Accession Number(s): [id number] cc: Kathryn Jarquin MD; Jaylen Cotton MD [...] 04/13/24 1141 DD/ 1421 TD/TT: 03/30/24 1427 Manager Quality Improvement: us [facility] External Provider IMG US PROCEDURES Final Result * (ABNORMAL) Drug Monitoring, Panel 1, Screen, Urine (03/29/2024 2:58 PM EST) Opiate Screen Urine POSITIVE(A) Not Detect [facility] Comment:Opiate cut-off is 30 0 ng/mL.Positive results are unconfirmed and should not be used fornon-medical purposes. Barbiturates, Urine Not Detected Not Detect [facility] Comment:Barbiturate cut-off is 200 ng/mL.Positive results are unconfirmed and should not be used fornon-medical purposes. Phencyclidine Screen Urine Not Detected Not Detect [facility] Comment:Phencyclidine cut-of f is 25 ng/mL.Positive results are unconfirmed and should not be used fornon-medical purposes. Amphetamine Screen Urine Not Detected Not Detect [facility] Comment:Amphetamine cut-off is 1000 ng/mL.Positive results are unconfirmed and should not be used fornon-medical purposes. Benzodiazepines Screen Urine POSITIVE(A) Not Detect [facility] Comment:Benzodiazepine cut-o ff is 200 ng/mL.Positive results are unconfirmed and should not be used fornon-medical purposes. Cocaine Screen Urine Not Detected Not Detect [facility] Comment:Cocaine cut-off is 3 00 ng/mL.Positive results are unconfirmed and should not be used fornon-medical purposes. Cannabinoid Screen Urine Not Detected Not Detect [facility] Comment:Cannabinoid cut-off is 50 ng/mL.Positive results are unconfirmed and should not be used fornon-medical purposes. Methadone Screen, Urine Not Detected Not Detect ng/mL [facility] Comment:Methadone cut-off is 300 ng/mL.Positive results are unconfirmed and should not be used fornon-medical purposes. FENTANYL URINE Not Detected Not Detect [facility] Comment:Fentanyl cut-off is 1 ng/mL.Positive results are unconfirmed and should not be used fornon-medical purposes. Oxycodone Urine Screen Positive(A) Not Detect ng/mL [facility] Comment:Oxycodone cut-off is 100 ng/mL.Positive results are unconfirmed and should not be used fornon-medical purposes. Buprenorphine Screen Not Detected Not Detect ng/mL [facility] Comment:Buprenorphine cut-of f is 5 ng/mL.Positive results are unconfirmed and should not be used fornon-medical purposes. Urine (Urine, Random) 03/29/2024 2:58 PM EST 03/29/2024 3:55 PM EST Kathryn Jarquin MD LAB URINE ORDERABLES Final Resul t Performing Organization Address [facility] Phone Number [facility] [address] [place] [address] [phone] * Albumin, Random Urine W/Creatinine (03/29/2024 2:58 PM EST) Creatinine, Urine 136.27 mg/dL [facility] Microalbumin Urine 14.0 mg/L [facility] Microalbum Creatinine Ratio Ur 10.2 <30 ug/mg cr [facility] Comment:Albumin/Creatinine R atio Reference Ranges: Normal: < 30 ug/mg creatinine Microalbuminuria: 30 - 300 ug/mg creatinineClinical Albuminuria: > 300 ug/mg creatinine Urine 03/29/2024 2:58 PM EST 03/29/2024 3:55 PM EST Kathryn Jarquin MD LAB URINE ORDERABLES Final Resul t Performing Organization Address [facility] de Phone Number [facility] [address] [place] [phone] * XR Knee 3 Views Right (03/29/2024 12:07 PM EST) Anatomical Region Laterality Modality Lower Extremities, Knee Right Radiogra phic Imaging 03/29/2024 12:0 7 PM EST Narrative 03/29/2024 2:26 PM EST ? [facility] ?[address] ?[place] [address] ?XRay Report ? Signed ? Patient: Moran,Wen ?MR#: [id number] ?? 5803 ? : 1955 ?Acct:[id number] ? Age/Sex: 68 / F ?ADM Date: 12/26/24 ? Loc: HO.HHCL ? Attending Dr: Kathryn Jarquin MD ? Ordering Physician: Kathryn Jarquin MD ?? Date of Service: 03/29/24 ?? Procedure(s): XR knee RT 3V ?? Accession Number(s): [id number] ? cc: Kathryn Jarquin MD ? EXAMINATION: ?? BILATERAL KNEES, THORACIC SPINE ? CLINICAL INFORMATION: ?? Bilateral knee pain, back pain ? COMPARISON: ?? Right knee 12/21/2022, left knee 07/09/2020, chest radiograph ?? 05/02/2019 ? TECHNIQUE: ?? 3 views each knee, 3 views thoracic spine ? FINDINGS: ?? Thoracic spine: Some minimal spondylitic endplate changes are seen. No ?? fractures or subluxations. No bony destructive lesions. Paraspinal soft ?? tissues appear unremarkable. ? Right knee: There is some minimal chondrocalcinosis in the medial ?? menisci. Joint spaces are well preserved. No joint effusion is seen. No ?? fractures or bony destructive lesions. Vascular calcifications are ?? noted. ? Left knee: There are mild degenerative changes seen with narrowing of ?? the medial compartment and small medial tibial plateau marginal ?? osteophyte. Some mild osteophytes are noted arising from the tibial ?? tubercles. There is no chondrocalcinosis. No joint effusion. Vascular ?? calcifications are noted. ? XR/XR knee RT 3V ?? IMPRESSION: ?? 1. ??Mild degenerative changes in the thoracic spine. ?? 2. ??Mild degenerative changes in the left knee. ?? 3. ??Minimal chondrocalcinosis in the right knee. ? Electronically signed by: ??Luigi Ward MD ??03/29/2024 02:23 PM EST ?? RP ? Dictated By: ?Luigi Ward MD ? Signed By: ?<Electronically signed by Luigi Ward MD in OV> ? 03/29/24 1423 ? DD/ 1207 ? TD/TT: 03/29/24 1240 ? Manager Quality Improvement: SS ? Procedure Note Froilan, Patito - 03/29/[address] [address] XRay Report Signed Patient: Devin Moran#: [id number] : 7Acct:[id number] Age/Sex: 68 / FADM Date: 03/29/24 Loc: .[facility] Attending Dr: Kathryn Jarquin MD Ordering Physician: Kathryn Jarquin MD Date of Service: 03/29/24 Procedure(s): XR knee RT 3V Accession Number(s): [id number] cc: Kathryn Jarquin MD EXAMINATION: BILATERAL KNEES, THORACIC SPINE CLINICAL INFORMATION: Bilateral knee pain, back pain COMPARISON: Right knee 12/21/2022, left knee 07/09/2020, chest radiograph 05/02/2019 TECHNIQUE: 3 views each knee, 3 views thoracic spine FINDINGS: Thoracic spine: Some minimal spondylitic endplate changes are seen. No fractures or subluxations. No bony destructive lesions. Paraspinal soft tissues appear unremarkable. Right knee: There is some minimal chondrocalcinosis in the medial menisci. Joint spaces are well preserved. No joint effusion is seen. No fractures or bony destructive lesions. Vascular calcifications are noted. Left knee: There are mild degenerative changes seen with narrowing of the medial compartment and small medial tibial plateau marginal osteophyte. Some mild osteophytes are noted arising from the tibial tubercles. There is no chondrocalcinosis. No joint effusion. Vascular calcifications are noted. XR/XR knee RT 3V IMPRESSION: 1. Mild degenerative changes in the thoracic spine. 2. Mild degenerative changes in the left knee. 3. Minimal chondrocalcinosis in the right knee. Electronically signed by: Luigi Ward MD 03/29/2024 02:23 PM EST Dictated By: Luigi Ward MD Signed By: <Electronically signed by Luigi Ward MD in OV> 03/29/24 1423 DD/ 1207 TD/TT: 03/29/24 1240 Manager Quality Improvement: SS us Kathryn Jarquin MD IMG XR PROCEDURES Final Result * XR Knee 3 Views Left (03/29/2024 12:07 PM EST) Anatomical Region Laterality Modality Lower Extremities, Knee Left Radiogra phic Imaging 03/29/2024 12:0 7 PM EST Narrative 03/29/2024 2:25 PM EST ? [facility] ?[address] ?[place] [address] ?XRay Report ? Signed ? Patient: Dean,Wen ?MR#: [id number] ?? 5803 ? : 1955 ?Acct:[id number] ? Age/Sex: 68 / F ?ADM Date: 03/29/24 ? Loc: HO.HHCL ? Attending Dr: Kathryn Jarquin MD ? Ordering Physician: Kathryn Jarquin MD ?? Date of Service: 03/29/24 ?? Procedure(s): XR knee LT 3V ?? Accession Number(s): [id number] ? cc: Kathryn Jarquin MD ? EXAMINATION: ?? BILATERAL KNEES, THORACIC SPINE ? CLINICAL INFORMATION: ?? Bilateral knee pain, back pain ? COMPARISON: ?? Right knee 12/21/2022, left knee 07/09/2020, chest radiograph ?? 05/02/2019 ? TECHNIQUE: ?? 3 views each knee, 3 views thoracic spine ? FINDINGS: ?? Thoracic spine: Some minimal spondylitic endplate changes are seen. No ?? fractures or subluxations. No bony destructive lesions. Paraspinal soft ?? tissues appear unremarkable. ? Right knee: There is some minimal chondrocalcinosis in the medial ?? menisci. Joint spaces are well preserved. No joint effusion is seen. No ?? fractures or bony destructive lesions. Vascular calcifications are ?? noted. ? Left knee: There are mild degenerative changes seen with narrowing of ?? the medial compartment and small medial tibial plateau marginal ?? osteophyte. Some mild osteophytes are noted arising from the tibial ?? tubercles. There is no chondrocalcinosis. No joint effusion. Vascular ?? calcifications are noted. ? XR/XR knee LT 3V ?? IMPRESSION: ?? 1. ??Mild degenerative changes in the thoracic spine. ?? 2. ??Mild degenerative changes in the left knee. ?? 3. ??Minimal chondrocalcinosis in the right knee. ? Electronically signed by: ??Luigi Ward MD ??03/29/2024 02:23 PM EST ?? RP ? Dictated By: ?Luigi Ward MD ? Signed By: ?<Electronically signed by Luigi Ward MD in OV> ? 03/29/24 1423 ? DD/ 1207 ? TD/TT: 03/29/24 1240 ? Manager Quality Improvement: SS ? Procedure Note Froilan, Patito - 03/29/[address] [address] XRay Report Signed Patient: Devin Moran#: [id number] : 7Acct:[id number] Age/Sex: 68 / FADM Date: 03/29/24 Loc: [facility] Attending Dr: Kathryn Jarquin MD Ordering Physician: Kathryn Jarquin MD Date of Service: 03/29/24 Procedure(s): XR knee LT 3V Accession Number(s): [id number] cc: Kathryn Jarquin MD EXAMINATION: BILATERAL KNEES, THORACIC SPINE CLINICAL INFORMATION: Bilateral knee pain, back pain COMPARISON: Right knee 12/21/2022, left knee 07/09/2020, chest radiograph 05/02/2019 TECHNIQUE: 3 views each knee, 3 views thoracic spine FINDINGS: Thoracic spine: Some minimal spondylitic endplate changes are seen. No fractures or subluxations. No bony destructive lesions. Paraspinal soft tissues appear unremarkable. Right knee: There is some minimal chondrocalcinosis in the medial menisci. Joint spaces are well preserved. No joint effusion is seen. No fractures or bony destructive lesions. Vascular calcifications are noted. Left knee: There are mild degenerative changes seen with narrowing of the medial compartment and small medial tibial plateau marginal osteophyte. Some mild osteophytes are noted arising from the tibial tubercles. There is no chondrocalcinosis. No joint effusion. Vascular calcifications are noted. XR/XR knee LT 3V IMPRESSION: 1. Mild degenerative changes in the thoracic spine. 2. Mild degenerative changes in the left knee. 3. Minimal chondrocalcinosis in the right knee. Electronically signed by: Luigi Ward MD 03/29/2024 02:23 PM EST RP Dictated By: Luigi Ward MD Signed By: <Electronically signed by Luigi Ward MD in OV> 03/29/24 1423 DD/ 1207 TD/TT: 03/29/24 1240 Manager Quality Improvement: SS us Kathryn Jarquin MD IMG XR PROCEDURES Final Result * XR Thoracic Spine 2 Views (03/29/2024 12:07 PM EST) Anatomical Region Laterality Modality Spine, T-spine Radiographic Arabella ging 03/29/2024 12:0 7 PM EST Narrative 03/29/2024 2:25 PM EST ? [facility] ?[address] ?[place] [address] ?XRay Report ? Signed ? Patient: Wen Moran ?MR#: [id number] ?? 5803 ? : 1955 ?Acct:[id number] ? Age/Sex: 68 / F ?ADM Date: 03/29/24 ? Loc: HO.HHCL ? Attending Dr: Kathryn Jarquin MD ? Ordering Physician: Kathryn Jarquin MD ?? Date of Service: 03/29/24 ?? Procedure(s): XR thoracic spine 2V ?? Accession Number(s): [id number] ? cc: Kathryn Jarquin MD ? EXAMINATION: ?? BILATERAL KNEES, THORACIC SPINE ? CLINICAL INFORMATION: ?? Bilateral knee pain, back pain ? COMPARISON: ?? Right knee 12/21/2022, left knee 07/09/2020, chest radiograph ?? 05/02/2019 ? TECHNIQUE: ?? 3 views each knee, 3 views thoracic spine ? FINDINGS: ?? Thoracic spine: Some minimal spondylitic endplate changes are seen. No ?? fractures or subluxations. No bony destructive lesions. Paraspinal soft ?? tissues appear unremarkable. ? Right knee: There is some minimal chondrocalcinosis in the medial ?? menisci. Joint spaces are well preserved. No joint effusion is seen. No ?? fractures or bony destructive lesions. Vascular calcifications are ?? noted. ? Left knee: There are mild degenerative changes seen with narrowing of ?? the medial compartment and small medial tibial plateau marginal ?? osteophyte. Some mild osteophytes are noted arising from the tibial ?? tubercles. There is no chondrocalcinosis. No joint effusion. Vascular ?? calcifications are noted. ? XR/XR thoracic spine 2V ?? IMPRESSION: ?? 1. ??Mild degenerative changes in the thoracic spine. ?? 2. ??Mild degenerative changes in the left knee. ?? 3. ??Minimal chondrocalcinosis in the right knee. ? Electronically signed by: ??Luigi Ward MD ??03/29/2024 02:23 PM EST ? Dictated By: ?Luigi Ward MD ? Signed By: ?<Electronically signed by Luigi Ward MD in OV> ? 03/29/24 1423 ? DD/ 1207 ? TD/TT: 03/29/24 1240 ? Manager Quality Improvement: SS ? Procedure Note Patito Mcgovern - 03/29/[address] [address] XRay Report Signed Patient: Devin Moran#: [id number] : [id number]:[id number] Age/Sex: 68 / FADM Date: 03/29/24 Loc: HO.HHCL Attending Dr: Kathryn Jarquin MD Ordering Physician: Kathryn Jarquin MD Date of Service: 03/29/24 Procedure(s): XR thoracic spine 2V Accession Number(s): [id number] cc: Kathryn Jarquin MD EXAMINATION: BILATERAL KNEES, THORACIC SPINE CLINICAL INFORMATION: Bilateral knee pain, back pain COMPARISON: Right knee 12/21/2022, left knee 07/09/2020, chest radiograph 05/02/2019 TECHNIQUE: 3 views each knee, 3 views thoracic spine FINDINGS: Thoracic spine: Some minimal spondylitic endplate changes are seen. No fractures or subluxations. No bony destructive lesions. Paraspinal soft tissues appear unremarkable. Right knee: There is some minimal chondrocalcinosis in the medial menisci. Joint spaces are well preserved. No joint effusion is seen. No fractures or bony destructive lesions. Vascular calcifications are noted. Left knee: There are mild degenerative changes seen with narrowing of the medial compartment and small medial tibial plateau marginal osteophyte. Some mild osteophytes are noted arising from the tibial tubercles. There is no chondrocalcinosis. No joint effusion. Vascular calcifications are noted. XR/XR thoracic spine 2V IMPRESSION: 1. Mild degenerative changes in the thoracic spine. 2. Mild degenerative changes in the left knee. 3. Minimal chondrocalcinosis in the right knee. Electronically signed by: Luigi Ward MD 03/29/2024 02:23 PM EST Dictated By: Luigi Ward MD Signed By: <Electronically signed by Luigi Ward MD in OV> 03/29/24 1423 DD/ 1207 TD/TT: 03/29/24 1240 Manager Quality Improvement: SS us Kathryn Jarquin MD IMG XR PROCEDURES Final Result * TSH with Reflex to Free T4 (03/29/2024 11:49 AM EST) TSH reflex Free T4 1.12 0.32 - 4.0 uIU/mL [facility] Blood 03/29/2024 11:4 9 AM EST 03/29/2024 1:10 PM EST Kathryn Jarquin MD LAB BLOOD ORDERABLES Final Resul t [facility] [address] [place] [phone] * (ABNORMAL) Lipid Panel with Reflex to Direct LDL (03/29/2024 11:49 AM EST) Triglycerides 232(H) <150 mg/dL [facility] Comment:Desirable Triglyceri de: less than 150 mg/dLBorderline High Triglyceride 150-199 mg/dLHigh Triglyceride: 200-499 mg/dLVery High Triglyceride: greater than or equal to 5OO mg/dL Cholesterol 253(H) <200 mg/dL [facility] Comment:Desirable Cholestero l: less than 200 mg/dLBorderline High Cholesterol: 200-239 mg/dLHigh Cholesterol: greater than 239 mg/dL LDL Cholesterol Calculated 148(H) <100 mg/dL [facility] Comment:Desirable LDL: less than 100 mg/dLNear Optimal/Above Optimal LDL: 110- 129 mg/dLBorderline High LDL: 130-159 mg/dLHigh LDL: 160-189 mg/dLVery High LDL: greater than or equal to 190 mg/dL HDL Cholesterol 59 >40 mg/dL [facility] Comment:Desirable HDL: great er than 40 mg/dL Note: This HDL assay may give artificially low results in patients with liver disease. Blood 03/29/2024 11:4 9 AM EST 03/29/2024 1:10 PM EST Kathryn Jarquin MD LAB BLOOD ORDERABLES Final Resul t Performing Organization Address City/[facility]/ZIP Co de Phone Number [facility] [address] [place] [phone] * Magnesium (03/29/2024 11:49 AM EST) Magnesium 1.8 1.6 - 2.6 mg/dL [facility] Blood Venous blood specimen / Unknown 03/29/2024 11:49 AM EST 03/29/2024 1:10 PM EST Kathryn Jarquin MD LAB BLOOD ORDERABLES Final Resul t [facility] [address] [place] [phone] * (ABNORMAL) Comprehensive Metabolic Panel (03/29/2024 11:49 AM EST) Sodium 135 135 - 145 mmol/L [facility] Potassium 3.8 3.3 - 5.1 mmol/L [facility] Chloride 98 96 - 108 mmol/L [facility] Carbon Dioxide 27 22 - 29 mmol/L [facility] Anion Gap 14 12 - 20 [facility] Urea Nitrogen (BUN) 30(H) 9 - 16 mg/dL [facility] Creatinine, Serum 1.49(H) 0.5 - 1.4 mg/dL [facility] Estimated Glomerular Filt Rate 35 [facility] Comment:Chronic Kidney Disea se: Estimated GFR < 60 mL/min/1.84d7Vpyatz Kidney Disease: Estimated GFR < 15 mL/min/1.73m2 Glucose 250(H) 60 - 115 mg/dL [facility] Calcium 9.6 8.4 - 10.2 mg/dL [facility] Bilirubin, Total 0.3 0.0 - 1.0 mg/dL [facility] Aspartate Amino Transferase 19 5 - 31 U/L [facility] Alanine Aminotransferase 13 0 - 31 U/L [facility] Total Protein 7.9 6.5 - 8.0 g/dL [facility] Albumin Level 4.1 3.5 - 5.0 g/dL [facility] Alkaline Phosphatase 141(H) 39 - 117 U/L [facility] Blood Venous blood specimen / Unknown 03/29/2024 11:49 AM EST 03/29/2024 1:10 PM EST us Kathryn Jarquin MD LAB BLOOD ORDERABLES Final Resul t [facility] [address] [place] [address] [phone] * (ABNORMAL) POCT glycosylated hemoglobin (Hgb A1c) (03/29/2024 10:40 AM EST) Hemoglobin A1C 10.7(A) 4.0 - 6.0 % QC Media Lot # [id number] Lot# Expiration Date Blood Capillary blood specimen / Unknown 03/29/2024 10:40 AM EST Kathryn Jarquin MD POINT OF CARE TEST ENTER/EDIT OR DERABLES Final Result * (ABNORMAL) POCT glucose manually resulted (03/29/2024 10:36 AM EST) Glucose Blood, POC 266(A) 60 - 200 mg/dL QC Media Lot # [id number] Lot# Expiration Date ,558,535 Blood Capillary blood specimen / Unknown 03/29/2024 10:36 AM EST Kathryn Jarquin MD POINT OF CARE TEST ENTER/EDIT OR DERABLES Edited Result - Final * Diabetes Eye Exam (11/18/2023) Eye Exam Normal Normal 11/18/2023 Historical Provider MD HEALTH MAINTENANCE Final Result * Mammography (09/13/2022) Pathologist [facility] Mammogram bi-rads Anatomical Region Laterality Modality Other [facility] Unassigned Pcp HEALTH MAINTENANCE Final Result * HEPATITIS C ANTIBODY RFLX (04/18/2019 8:30 AM EST) Pathologist [facility] HEPATITIS C ANTIBODY NONREACTIVE NONREACTIVE [facility] Comment: Antibodies to HCV not detected; does not exclude early acute HCV infection. 04/18/2019 8:30 AM EST Kathryn Jarquin MD HISTORICAL/NON ORDERABLE LABS Fi nal Result [facility] [address] [place] [address] from Last 3 Months or Most Recently Relevant to Health Maintenance Insurance [facility] Care Teams Powder Blender And Pourer Relationship Specialty Start Date End Date Kathryn aJrquin MD [address] [place] [address] PCP - General Family Medicine 04/04/18 Denis Rodgers, PharmD [address] [place] [address] Pharmacist Internal Medicine 10/22/22
--- OUTSIDE RECORDS SUMMARY | 2024-05-03 17:09 | XMS_ITS | Encounter Summary ---
Author Organization [facility], Address [address] [place] [address] Phone Care Team Providers Care Track Maintainer Name Role Phone Kathryn Jarquin MD Primary Care Provider [phone] Encounter Details Date Type Department Care Team (Late st Contact Info) Description 09/07/2023 Documentation Only [facility], [address] [place] [address] Doug Luna [address] [place] [address] Social History Tobacco Use Types Packs/Day Years Used Date Smoking Tobacco: Never Assessed Comments Unknown Sex and Gender Information Value Date Recorded Sex Assigned at Not on file Legal Sex Female 11:50 AM EDT Gender Identity Not on file Sexual Orientation Not on file documented as of this encounter Plan of Treatment Not on file documented as of this encounter Visit Diagnoses Not on filedocumented in this encounter Care Teams Track Maintainer Relationship Specialty Start Date End Date Kathryn Jarquin MD [address] [place] [phone] PCP - General Family Medicine 08/31/23 documented as of this encounter
--- OUTSIDE RECORDS SUMMARY | 2024-05-03 17:09 | XMS_ITS | Encounter Summary ---
Author Organization [employer] Address [address] [facility] [place] [address] [place] [address] Care Team Providers Care Nuclear Physics Teacher Name Role Phone Kathryn Jarquin MD Primary Care Provider [phone] Denis Rodgers PharmD Unavailable [phone] Reason for Visit * Reason Comments Med Refill Encounter Details Date Type Department Care Team ([facility] st Contact Info) Description 04/25/[address] [facility] [address] [place], [place] [phone] Kathryn Jarquin MD [address] [place], [place] [phone] Hypothyroidism (acquired) Social History Tobacco Use Types Packs/Day Years [...] Description 05/10/2024 1:00 PM EST Medication Management [address] [address] 05/25/2024 10:30 AM EST Clinical Support [address] [address] Rhonda Valdez, DELFINA [address] [place] [address] documented as of this encounter Goals Goal Patient Goal Type Associated Problems Recent Progress Patient-Stated? Author Blood Pressure < 140/90 Blood Pressure 144/76( 11:43 AM EST) No Denis Rodgers PharmD documented as of this encounter Visit Diagnoses Diagnosis Hypothyroidism (acquired) Unspecified hypothyroidism documented in this encounter Additional Health Concerns Assessment Noted Time PHQ-9 Depression Total Score: 12 024 10:26 AM EST documented as of this encounter Care Teams Nuclear Physics Teacher Relationship Specialty Start Date End Date Kathryn Jarquin MD [address] [place] [phone] PCP - General Family Medicine 04/04/18 Denis Rodgers, Swapnil [address] [place] [phone] Pharmacist Internal Medicine 10/22/22 documented as of this encounter
== END 2024-05-03 13:26 | disposition home or self-care (01) ==
LOC: HO.HWS 13:17
PROVIDERS: PCP Family Medicine; Visit Provider Obstetrics & Gynecology
DX: R10.2 Pelvic and perineal pain (principal)
CPT/HCPCS: 99213

== ENCOUNTER → 2024-05-03 13:17 | Outpatient (BNVA) | payer OTHER, SELFPAY | PROVIDERS: PCP Family Medicine; Visit Provider Obstetrics & Gynecology | DX: R10.2 Pelvic and perineal pain (principal) | CPT/HCPCS: 99212 ==

== ENCOUNTER 2024-05-31 11:53 | Outpatient (AMB) | payer OTHER, SELFPAY ==
[2024-05-31 11:54] VITALS: BP 110/64; PULSE 81; O2SAT 95; BMI 43.3
--- NOTE | 2024-05-31 11:54 | HO.NEPHOV_ITS ---
Vital Signs 05/31/24 11:54 Height 4 ft 5 in Weight 173 lb BMI 43.3 BP 110/64 Blood Pressure Location Lt brachial Position Sitting Pulse 81 Pulse Source Pulse Oximeter Pulse Oximetry (%) 95 Oxygen Delivery Method Room Air Intake Visit Reasons: 6 mon follow up/ LVM Master Motorcycle Technician Required: Yes Master Motorcycle Technician Name: Elizabeth [phone] Accompanied by: Sister Allergies No Known Allergies [NO KNOWN ALLERGIES] Allergy (Unknown, Verified 05/31/24 11:57) UNKNOWN Medication List - Last Reconciled 05/31/24 by Juan C Silver MD acetaminophen ER 650 mg PO Q8H PRN amlodipine 5 mg PO DAILY aripiprazole 2 mg PO DAILY aspirin (Adult Aspirin Regimen) 81 mg PO DAILY atorvastatin 80 mg PO DAILY chlorthalidone 50 mg PO DAILY cholecalciferol (vitamin D3) (Vitamin D3) 25 mcg PO QAM clonazepam 2 mg PO DAILY clonidine HCl 0.1 mg PO BID conjugated estrogens (Premarin) 0 mg vaginal cyclobenzaprine 5 mg PO Q8H PRN 5 days dicyclomine 20 mg PO TID docusate sodium (Colace) 100 mg PO DAILY 30 days fluoxetine 60 mg PO QAM fluticasone propionate 220 mcg/actuation (Flovent HFA) 220 mcg inhalation ONCE glipizide 5 mg PO BID hydralazine 25 mg PO DAILY levothyroxine 50 mcg PO QAM linaclotide (Linzess) 290 mcg PO QAM 30 days magnesium oxide 400 mg PO DAILY 7 days magnesium oxide 400 mg PO DAILY methylcellulose (with sugar) (Citrucel (sucrose) oral powder) 1 tbsp PO BID mirtazapine 45 mg PO BEDTIME omeprazole 40 mg PO DAILY oxybutynin chloride ER 5 mg PO DAILY oxycodone 5 mg PO DAILY PRN prazosin 1 mg PO BEDTIME quetiapine ER 200 mg PO DAILY sennosides (senna) 17.2 mg PO DAILY simethicone (Gas Relief (simethicone)) 180 mg PO BID 30 days HPI Comments Details: Wen is a middle-aged woman with history of longstanding hypertension along with diabetes mellitus was had mild chronic kidney disease. Baseline serum creatinine is around 1.2-1.2 mg/dL. In January 2023 creatinine peaked to 1.99. She is on lisinopril 40 mg along with chlorthalidone 50 mg. She has been taking meloxicam 7.5 mg and Naprosyn 500 mg almost on a regular basis. She continues her dysuria. She has longstanding history of constipation and she has been followed by Gastroenterology. 09/08/23: says she is anxious ;Interpretor service was used 12/01/23;Still on Naprosyn 05/31/24 Off Naprosyn. Denies any new issues other than arthritic pain in knees No urinary symptoms PFSH Medical History Dysuria Chronic kidney disease Diabetes 1.5, managed as type 2 HTN (hypertension) KIRSTIE (stress urinary incontinence, female) Urge incontinence Chronic idiopathic constipation GERD (gastroesophageal reflux disease) Irritable bowel syndrome with constipation Surgical History H/O tubal ligation Hx of section H/O: hysterectomy History of esophagogastroduodenoscopy (EGD) Hx of colonoscopy Family History Father Family hx of prostate cancer Cancer Brother Cancer Mother HTN (hypertension) Maternal Aunt Skin cancer, Onset Age: 59 Social History Household Members: None Alcohol intake: never Patient Tobacco Use Status: Never used Tobacco Current occupational status: disabled Female Reproductive History Menstrual Age of Menarche: 12 Physical Exam Vital Signs: Last Vital Signs Pulse 81 05/31/24 11:54 BP 110/64 05/31/24 11:54 Pulse Ox 95 05/31/24 11:54 Oxygen Delivery Method Room Air 05/31/24 11:54 BMI result Body Mass Index 43.3 Const General: comfortable Nutritional Appearance: well nourished Orientation/consciousness: patient oriented x3 HEENT Head: No normal to inspection Mouth: moist mucous membranes Neck Neck: Yes supple and Yes no JVD Resp Auscultation: clear to auscultation bilaterally, no rales and rub present Cardio Jugular venous distension: no JVD Palpation: no palpable S3 and no palpable S4 Heart sounds: no rubs GI Palpation (GI): Soft to palpation and nontender Percussion: No Fluid wave present General: Yes no CVA tenderness Back/Spine/Pelvis Back: no CVA tenderness Skin General skin exam: no rashes or lesions noted Neuro General: patient oriented x3 Extrem General: Yes no pedal edema and No clubbing Results Reviewed Nephrology Results: Sodium 135 mmol/L (135-145) 03/29/24 Potassium 3.8 mmol/L (3.3-5.1) 03/29/24 Chloride 98 mmol/L (96-108) 03/29/24 Carbon Dioxide 27 mmol/L (22-29) 03/29/24 BUN 30 mg/dL (9-16) H 03/29/24 Creatinine 1.49 mg/dL (0.5-1.4) H 03/29/24 Calcium 9.6 mg/dL (8.4-10.2) 03/29/24 Urine Creatinine 136.27 mg/dL 03/29/24 Assessment & Plan Assessment & Plan (1) HTN (hypertension): Code(s): I10 - Essential (primary) hypertension Category: Medical (2) Dysuria: Code(s): R30.0 - Dysuria Category: Medical (3) CKD (chronic kidney disease) stage 4, GFR 15-29 ml/min: Code(s): N18.4 - Chronic kidney disease, stage 4 (severe) Category: Medical Plan . Wen has a h/o FRANTZ superimposed on chronic kidney disease. 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 She has no significant proteinuria therefore diabetic nephropathy seems unlikely. Recent imaging did not reveal any evidence of obstruction. Based on the recent urine studies I do not believe she has any active glomerulonephritis or interstitial disease at this time. Acute kidney injury is most likely due to hypoperfusion from the combination of high-dose of Jonh inhibitors with diuretics along with NSAIDs. AVOID both Naprosyn and meloxicam. Follow renal function Avoid hypotension. No changes were made today Orders: Orders Basic Metabolic Panel 6 Months N18.4 - Chronic kidney disease, stage 4 (severe) Total Protein Urine Random 6 Months N18.4 - Chronic kidney disease, stage 4 (severe) UA and rflx microscopic 6 Months N18.4 - Chronic kidney disease, stage 4 (severe) Creatinine Urine 6 Months N18.4 - Chronic kidney disease, stage 4 (severe) Medications: Discontinued naproxen Discontinued Reason: Doctor's Order 500 mg PO BID 10 days PRN 20 tabs 0RF pain Coding Level of Care Code Est Pt Level 4 (42661) Diagnoses HTN (hypertension) I10 Dysuria R30.0 CKD (chronic kidney disease) stage 4, GFR 15-29 ml/min N18.4
--- OUTSIDE RECORDS SUMMARY | 2024-05-31 14:27 | XMS_ITS | Encounter Summary ---
Author Organization [facility], Address [address] [place] [address] Phone Care Team Providers Care Campaign Coordinator Name Role Phone Kathryn Jarquin MD Primary Care Provider [phone] Encounter Details Date Type Department Care Team (Late st Contact Info) Description 09/07/2023 Documentation Only [facility], [address] [place] [address] Doug Luna [address] [place] [address] Social History Tobacco Use Types [...] on filedocumented in this encounter Care Teams Campaign Coordinator Relationship Specialty Start Date End Date Kathryn Jarquin MD [address] [place] [phone] PCP - General Family Medicine 08/31/23 documented as of this encounter
--- OUTSIDE RECORDS SUMMARY | 2024-05-31 14:27 | XMS_ITS | Clinical Summary ---
Author Organization [facility] Address [address] [facility] [address] [place] [address] Phone Care Team Providers Care Chemistry Associate Name Role Phone Kathryn Jarquin MD Primary Care Provider [phone] Allergies No known active allergies Active Problems [...] Last Assessment & Plan: -follow up with speech correction assistant -avoid nephrotoxic drugs -adjust medication: metformin ER [...] patient's age to complete this topic Insurance [facility] [employer] ([id number]) [place] [id number] [facility] [place] [id number] Care Teams Chemistry Associate Relationship Specialty Start Date End Date Kathryn Jarquin MD [address] [place] [phone] PCP - General Family Medicine 08/31/23
== END 2024-05-31 12:12 | disposition home or self-care (01) ==
PROVIDERS: PCP Family Medicine; Visit Provider Internal Medicine Hypertension Specialist
DX: I12.9 Hypertensive chronic kidney disease with stage 1 through stage 4 chronic kidney disease, or unspecified chronic kidney disease (principal); R30.0 Dysuria; N18.4 Chronic kidney disease, stage 4 (severe)
CPT/HCPCS: 99214

== ENCOUNTER → 2024-05-31 11:53 | Outpatient (BNVA) | payer OTHER, SELFPAY | PROVIDERS: PCP Family Medicine; Visit Provider Internal Medicine Hypertension Specialist | DX: I12.9 Hypertensive chronic kidney disease with stage 1 through stage 4 chronic kidney disease, or unspecified chronic kidney disease (principal); N18.4 Chronic kidney disease, stage 4 (severe); R30.0 Dysuria | CPT/HCPCS: 99212 ==

== ENCOUNTER 2024-07-22 13:59 | Emergency (ER) | payer OTHER, SELFPAY ==
--- NOTE | ~2024-07-22 | CT_ITS ---
CLINICAL HISTORY: lower abd pain CT abdomen and pelvis without contrast Comparison: CT/VT/SR - CT ABDOMEN PELVIS WO IV CON - 12/12/22 15:[address]/SR - CT ABDOMEN PELVIS WO IV CON - 07/26/22 17:02 EDT Findings: No consolidation at the lung bases. Calcified granuloma. Severe calcified coronary artery disease. Trace calcification of the aortic valve. Underdistended gallbladder. Unremarkable bladder. No hydronephrosis. Right nephrolithiasis is punctate. Status post hysterectomy. The other solid organs are unremarkable. No bowel wall thickening or dilation. A normal appendix is identified. Colonic diverticulosis. No inflamed diverticula or pericolonic stranding. No aneurysm. Severe calcified atherosclerotic disease. No lymphadenopathy. No ascites. Status post umbilical hernia repair. No acute osseous abnormality. Impression: No acute findings. This document has been electronically signed by: Zulay Espino MD on 07/22/2024 16:22:02
[2024-07-22 14:15] VITALS: BP 138/83; PULSE 83; RESP 13; TEMP 36.9; O2SAT 96; BMI 33.9
--- NOTE | 2024-07-22 14:18 | ED.ABDPAIN ---
HPI - Abdominal Pain General Chief Complaint: Urogenital-Female Stated Complaint: thigh pain Time Seen by Provider: 07/22/24 15:23 Source: patient and RN notes reviewed Mode of arrival: ambulatory Limitations: no limitations History of Present Illness ED Provider: Arabella Singleton PA-C HPI narrative: This is a 69-year-old female, with a past medical history of diabetes, hypertension, stress urinary incontinence, GERD, and irritable bowel syndrome, who presents emergency department with complaints of lower abdominal pain for many years, states that the pain had worsened today. Of note, patient has been seen by OBGYN, last seen in April where she had an unremarkable pelvic ultrasound. Patient reports that over the last month she was had worsening lower abdominal pain. She states that she contact her primary care who told her that she was to wait until October to be seen for an appointment. She reports that pain is constant, in his unrelieved by any medications she was taken. She states that she was taken Tylenol as well as oxycodone for pain which has provided her without any relief. No fevers, chills, chest pain or shortness for breath. No urinary frequency, urgency, dysuria. She does report she had an episode of hematuria last week which has since resolved. She was eating and drinking without difficulty. MD elicited complaint: abdominal pain Related Data Home Medications ?Medication ?Instructions ?Recorded ?Confirmed aspirin 81 mg tablet,delayed 81 mg PO DAILY 06/10/20 12/01/23 release (Adult Aspirin Regimen) aripiprazole 2 mg tablet 2 mg PO DAILY 03/23/21 12/01/23 chlorthalidone 50 mg tablet 50 mg PO DAILY 03/23/21 12/01/23 fluoxetine 20 mg capsule 60 mg PO QAM 03/23/21 12/01/23 mirtazapine 45 mg tablet 45 mg PO BEDTIME 03/23/21 12/01/23 cholecalciferol (vitamin D3) 25 25 mcg PO QAM 08/04/22 12/01/23 mcg (1,000 unit) capsule (Vitamin D3) conjugated estrogens 0.625 mg/gram 0 mg vaginal 08/04/22 12/01/23 vaginal cream (Premarin) levothyroxine 50 mcg tablet 50 mcg PO QAM 08/04/22 12/01/23 prazosin 1 mg capsule 1 mg PO BEDTIME 08/04/22 12/01/23 fluticasone propionate 220 220 mcg inhalation ONCE 12/29/22 12/01/23 mcg/actuation HFA aerosol inhaler (Flovent HFA) atorvastatin 80 mg tablet 80 mg PO DAILY 04/19/23 12/01/23 clonidine HCl 0.1 mg tablet 0.1 mg PO BID 04/19/23 12/01/23 glipizide 5 mg tablet 5 mg PO BID 04/19/23 12/01/23 oxybutynin chloride 5 mg 5 mg PO DAILY 04/19/23 12/01/23 tablet,extended release 24 hr hydralazine 25 mg tablet 25 mg PO DAILY 04/25/23 12/01/23 amlodipine 5 mg tablet 5 mg PO DAILY 09/08/23 12/01/23 sennosides 8.6 mg tablet (senna) 17.2 mg PO DAILY 09/08/23 12/01/23 clonazepam 2 mg tablet 2 mg PO DAILY 05/31/24 05/31/24 oxycodone 5 mg tablet 5 mg PO DAILY PRN 05/31/24 05/31/24 quetiapine 200 mg tablet,extended 200 mg PO DAILY 05/31/24 05/31/24 release 24 hr Previous Rx's ?Medication ?Instructions ?Recorded magnesium oxide 400 mg PO DAILY 7 days #7 caps 04/08/20 cyclobenzaprine 5 mg tablet 5 mg PO Q8H PRN pain (scale score 05/28/20 7-10) 5 days #14 tabs acetaminophen 650 mg 650 mg PO Q8H PRN pain #20 tabs 11/19/20 tablet,extended release docusate sodium 100 mg capsule 100 mg PO DAILY 30 days #30 caps 01/20/23 (Colace) methylcellulose (with sugar) oral 1 tbsp PO BID #850 grams 01/20/23 powder (Citrucel (sucrose) oral powder) simethicone 180 mg capsule (Gas 180 mg PO BID 30 days #60 caps 01/20/23 Relief (simethicone)) dicyclomine 20 mg tablet 20 mg PO TID #270 tabs 07/15/23 linaclotide 290 mcg capsule 290 mcg PO QAM 30 days #30 caps 08/19/23 (Linzess) magnesium oxide 400 mg PO DAILY #30 tabs 09/09/23 omeprazole 40 mg capsule,delayed 40 mg PO DAILY #90 caps 10/17/23 release acetaminophen 500 mg tablet 500 mg PO Q6H PRN pain #30 tabs 07/22/24 (Tylenol Extra Strength) Allergies Allergy/AdvReac Type Severity Reaction Status Date / Time No Known Allergies Allergy Unknown UNKNOWN Verified 07/22/24 14:17 [NO KNOWN ALLERGIES] Review of Systems Review of Systems Yes all other systems are reviewed and are negative Constitutional: Reports as per [facility] Past Medical History Attestation statement: The following information was validated with the patient. Medical History Dysuria Chronic kidney disease Diabetes 1.5, managed as type 2 HTN (hypertension) KIRSTIE (stress urinary incontinence, female) Urge incontinence Chronic idiopathic constipation GERD (gastroesophageal reflux disease) Irritable bowel syndrome with constipation Surgical History H/O tubal ligation Hx of section H/O: hysterectomy History of esophagogastroduodenoscopy (EGD) Hx of colonoscopy Family History Family History Father Family hx of prostate cancer Cancer Brother Cancer Mother HTN (hypertension) Maternal Aunt Skin cancer, Onset Age: 59 Social History Social History Household Members: None Alcohol intake: never Patient Tobacco Use Status: Never used Tobacco Current occupational status: disabled Physical Exam ED Vital Signs: Vital Signs - 24 hr 07/22/24 14:15 07/22/24 15:57 07/22/24 17:39 Temperature 98.4 F 97.3 F 97.4 F Pulse Rate 83 78 73 Respiratory Rate 13 16 16 Blood Pressure 138/83 162/73 H 150/78 H Pulse Oximetry 96 96 96 Oxygen Delivery Method Room Air Room Air Room Air 07/22/24 17:45 Temperature 97.4 F Pulse Rate 73 Respiratory Rate 16 Blood Pressure 150/78 H Pulse Oximetry 96 Oxygen Delivery Method Room Air BMI result Body Mass Index 33.9 Const General: cooperative, comfortable and no acute distress Orientation/consciousness: patient oriented x3 Limitations: no limitations HENMT Head: Yes normal to inspection, Yes normocephalic and Yes atraumatic Ears: hearing grossly normal bilaterally General nose exam: Normal external nose present Face and sinus: Yes normal facial exam Mouth: Normal oral and palatal mucosa present, oropharynx normal and moist mucous membranes Throat: Yes posterior oropharynx normal Eyes General: appearance normal, both eyes and all related structures Eyelids: Yes eyelids normal Conjunctivae: conjunctivae normal Sclerae: sclerae normal Pupils: Equal, round and reactive pupils present EOM: EOMs intact bilaterally Neck Neck: Yes normal visual inspection, Yes full ROM and Yes no lymphadenopathy Lymphatic: no lymphadenopathy noted Chest Chest palpation & inspection: normal inspection of the chest Resp Effort & Inspection: normal respiratory effort and able to speak in complete sentences Auscultation: clear to auscultation bilaterally, no crackles, no rales, no rhonchi and no wheezes Cardio Rate: regular rate Rhythm: regular rhythm Heart sounds: S1 normal heart sound present and S2 normal heart sound present GI Other: Abdomen is soft, with very mild tenderness palpation in the right lower and left lower quadrant. No rebound or guarding. Normoactive bowel sounds present Inspection: Yes normal to inspection Skin General skin exam: no rashes or lesions noted Trauma: no lacerations or abrasions Wounds: no wounds Neuro General: patient oriented x3 and moves all extremities Cranial nerves: Yes Equal, round and reactive pupils present Extrem General: Yes normal to inspection Right upper extremity: normal to inspection Left upper extremity: normal to inspection Right lower extremity: normal to inspection Left lower extremity: normal to inspection Course Course Course Narrative: This is an RME performed by Balbir Moeller CNP: Additional HPI, ROS, PE not included below will be deferred to primary provider. Patient is a 69-year-old female who presents emergency department for evaluation, she is experiencing diffuse lower abdominal/ pelvic pain for many years. She has been seen by gynecologist in the past for this pain as well and was advised that all was normal. States that she takes oxycodone for the pain, but this does not help. She states that today her pain is much worse and intolerable so she is seeking evaluation. She does endorse having burning with urination, and that her urine appears somewhat reddened color. She denies abnormal vaginal bleeding or discharge. Plan: Serum labs, urinalysis Reevaluation(s) Reevaluation #1: Patient is very well-appearing, appears to be under no acute distress. Vital signs remained stable. Cat scan unremarkable for any acute findings. Discussed findings with patient. She will follow-up with her PCP. Unclear what is causing her to have abdominal pain however her workup today was reassuring and she was a longstanding history of abdominal pain. Limited on what we can provide for pain due to CKD and she needs to follow-up with her PCP. She was already chronically prescribed oxycodone which she still has at her house. Given 1 dose in the department today. Patient feeling well enough for discharge. Stable for discharge Medical Decision Making Medical Decision Making [facility] Narrative: This is a 69-year-old female who presents emergency department with complaints of abdominal pain, chronic, worsening over the last month. On arrival, vital signs within normal limits. She is well-appearing under no acute distress. Abdomen is soft, with tenderness palpation in the right lower and left lower quadrant. Differential diagnoses include diverticulitis, diverticulosis, SBO, chronic abdominal pain. Will obtain labs, UA, CT abdomen and pelvis without contrast given history of CKD. Differential Diagnosis Differential Diagnoses: The differential diagnosis associated with the presentation includes See above Admission/Observation Consideration of admission/observation: Escalation of care including admission/observation considered Lab Data [facility] Lab Attestation statement: I reviewed the patient's lab results. Labs with no leukocytosis, stable H&H, chemistry revealing elevated creatinine at 1.49, and a BUN of 26, similar to previous. Random glucose 287, she does have a history of diabetes, alk phos 125, nonspecific, liver enzymes within normal limits. Urine with glucosuria, no evidence of infection. 07/22/24 14:34 07/22/24 14:34 Labs: Lab Results 07/22/24 07/22/24 Range/Units 14:34 14:35 WBC 10.5 (4.8-10.8) X10*3/uL RBC 4.76 (4.20-5.50) X10*6/uL Hgb 13.1 (12.0-16.0) g/dl Hct 40.6 (37.0-47.0) % MCV 85.3 (80.0-98.0) fL MCH 27.5 (27.0-33.0) pg MCHC 32.3 (31.0-35.0) g/dl RDW 15.1 (11.0-16.0) % Plt Count 211 (160-400) X10*3/uL MPV 10.7 (9.4-12.3) fL Immature Gran % (Auto) 0.3 (0.0-0.4) % Neut % (Auto) 63.9 (45-73) % Lymph % (Auto) 28.6 (20-40) % [place] % (Auto) 5.4 (2-11) % Eos % (Auto) 1.4 (0-4) % Baso % (Auto) 0.4 (0-2) % Lymph # (Auto) 3.0 (1.2-4.9) X10*3/uL [place] # (Auto) 0.6 (0.1-1.2) X10*3/uL Eos # (Auto) 0.2 (0.0-0.4) X10*3/uL Baso # (Auto) 0.0 (0.0-0.2) X10*3/uL Abs Immat Gran (auto) 0.03 (0.00-0.03) X10*3/uL Absolute Neuts (auto) 6.7 (2.0-8.3) x10*3/uL Absolute Nucleated RBC 0.000 (0.0-0.012) X10*3/uL Nucleated RBC % (auto) 0.0 (0.0-0.2) /100WBC Sodium 139 (135-145) mmol/L Potassium 4.4 (3.3-5.1) mmol/L Chloride 102 (96-108) mmol/L Carbon Dioxide 25 (22-29) mmol/L Anion Gap 16 (12-20) BUN 26 H (9-16) mg/dL Creatinine 1.49 H (0.5-1.4) mg/dL Estim Creat Clear Calc 32.1 Estimated GFR 35 Random Glucose 287 H (60-115) mg/dL Calcium 9.9 (8.4-10.2) mg/dL Total Bilirubin 0.2 (0.0-1.0) mg/dL AST 25 (5-31) U/L ALT 16 (0-31) U/L Alkaline Phosphatase 125 H (39-117) U/L Total Protein 7.5 (6.5-8.0) g/dL Albumin 4.1 (3.5-5.0) g/dL Urine Color Yellow Urine Appearance Clear Urine pH 5.5 (5.0-9.0) Ur Specific [place] 1.020 (1.005-1.025) Urine Protein Negative (Neg-Trace) mg/dL Urine Glucose (UA) 500 H (Negative) mg/dL Urine Ketones Negative (Negative) mg/dL Urine Blood Negative (Negative) Urine Nitrite Negative (Negative) Ur Leukocyte Esterase Negative (Negative) Radiology Impression Discussion of test interpretation with radiology: I have reviewed the radiologist's reading. External Record Review External record reviewed: Inpatient record, Office record, Outpatient record, Prior outpatient labs, Prior outpatient radiology, Primary care record and Outside ED record Medications Administered Discontinued Medications Generic Name Dose Route Start Last Admin Trade Name Freq PRN Reason Stop Dose Admin Oxycodone HCl 5 mg 07/22/24 17:29 07/22/24 17:41 Oxycodone Hcl Immed Release 5 Mg Tablet PO 07/22/24 17:30 5 mg ONCE ONE Administration Discharge Plan Discharge Clinical Impression: Abdominal pain Patient Disposition: Home, Self-Care Instructions: Abdominal Pain (ED) Additional Instructions: You were seen in the emergency department due to chronic abdominal pain. Your workup today was reassuring. It was unclear what is causing you to have abdominal pain. Take Tylenol as needed for mild pain. [place] oxycodone for severe pain only. Please be advised that this is addictive medication and can cause adverse side effects including but not limited to addiction, dizziness, lightheadedness and constipation. You need to follow-up with your primary care physician. Call tomorrow to make an appointment. If any new or worsening symptoms occur including but not limited to severe chest pain, shortness of breath, abdominal pain, please seek emergent care. Prescriptions: New acetaminophen [Tylenol Extra Strength] 500 mg tablet 500 mg PO Q6H PRN (Reason: pain) Qty: 30 0RF No Action dicyclomine 20 mg tablet 20 mg PO TID Qty: 270 2RF Linzess 290 mcg capsule 290 mcg PO QAM 30 Days Qty: 30 6RF omeprazole 40 mg capsule,delayed release(DR/EC) 40 mg PO DAILY Qty: 90 2RF magnesium oxide 400 mg magnesium capsule 400 mg PO DAILY 7 Days Qty: 7 0RF cyclobenzaprine 5 mg tablet 5 mg PO Q8H PRN (Reason: pain (scale score 7-10)) 5 Days Qty: 14 0RF acetaminophen 650 mg tablet extended release 650 mg PO Q8H PRN (Reason: pain) Qty: 20 0RF magnesium oxide 400 mg magnesium tablet 400 mg PO DAILY Qty: 30 0RF aspirin [Adult Aspirin Regimen] 81 mg tablet,delayed release (DR/EC) 81 mg PO DAILY chlorthalidone 50 mg tablet 50 mg PO DAILY aripiprazole 2 mg tablet 2 mg PO DAILY fluoxetine 20 mg capsule 60 mg PO QAM mirtazapine 45 mg tablet 45 mg PO BEDTIME Flovent HFA 220 mcg/actuation HFA aerosol inhaler 220 mcg inhalation ONCE amlodipine 5 mg tablet 5 mg PO DAILY sennosides [senna] 8.6 mg tablet 17.2 mg PO DAILY cholecalciferol (vitamin D3) [Vitamin D3] 25 mcg (1,000 unit) capsule 25 mcg PO QAM prazosin 1 mg capsule 1 mg PO BEDTIME Premarin 0.625 mg/gram cream 0 mg vaginal levothyroxine 50 mcg tablet 50 mcg PO QAM hydralazine 25 mg tablet 25 mg PO DAILY docusate sodium [Colace] 100 mg capsule 100 mg PO DAILY 30 Days Qty: 30 6RF Citrucel (sucrose) Powder 1 tbsp PO BID Qty: 850 6RF simethicone [Gas Relief (simethicone)] 180 mg capsule 180 mg PO BID 30 Days Qty: 60 6RF oxybutynin chloride 5 mg tablet extended release 24hr 5 mg PO DAILY clonidine HCl 0.1 mg tablet 0.1 mg PO BID atorvastatin 80 mg tablet 80 mg PO DAILY glipizide 5 mg tablet 5 mg PO BID oxycodone 5 mg tablet 5 mg PO DAILY PRN clonazepam 2 mg tablet 2 mg PO DAILY quetiapine 200 mg tablet extended release 24 hr 200 mg PO DAILY Interventions: ED Discharge Assessment Last Done: 07/22/24 17:45 Discharge Date/Time: 07/22/24 17:46 Print Language: Japanese
[2024-07-22 14:38] LABS: MANUAL DIFF FLAG NO
[2024-07-22 14:40] LABS: Basophils Percent Auto 0.4 % (0-2); Eosinophils Absolute Auto 0.2 X10*3/uL (0.0-0.4); Eosinophils Percent Auto 1.4 % (0-4); Hematocrit 40.6 % (37.0-47.0); Hemoglobin 13.1 g/dl (12.0-16.0); Imm Gran Abs Auto 0.03 X10*3/uL (0.00-0.03); Imm Gran Pct Auto 0.3 % (0.0-0.4); Lymphocytes Percent Auto 28.6 % (20-40); Mean Corpuscular HGB Conc 32.3 g/dl (31.0-35.0); Mean Corpuscular Hemoglobin 27.5 pg (27.0-33.0); Mean Corpuscular Volume 85.3 fL (80.0-98.0); Mean Platelet Volume 10.7 fL (9.4-12.3); Monocytes Absolute Auto 0.6 X10*3/uL (0.1-1.2); Monocytes Percent Auto 5.4 % (2-11); Neutrophils Absolute Auto 6.7 x10*3/uL (2.0-8.3); Neutrophils Percent Auto 63.9 % (45-73); Platelet Count 211 X10*3/uL (160-400); Red Blood Count 4.76 X10*6/uL (4.20-5.50); Red Cell Distribution Width 15.1 % (11.0-16.0); White Blood Count 10.5 X10*3/uL (4.8-10.8)
--- OUTSIDE RECORDS SUMMARY | 2024-07-22 14:42 | XMS_ITS | Encounter Summary ---
Author Organization [employer] Address [address] [facility] [address] [place] [address] Care Team Providers Care [employer] Cook Name Role Phone Kathryn Jarquin MD Primary Care Provider [phone] Denis Rodgers PharmD Unavailable [phone] Reason for Visit * Reason Comments Med Refill Encounter Details Date Type Department Care Team (Late st Contact Info) Description 05/29/2024 Refill [facility] [address] [place] [address] Kathryn Jarquin MD [address] [place] [address] Upper back pain; Chronic pain of both [...] Care Team (Late st Contact Info) Description 08/01/2024 2:45 PM EDT Clinical Support [facility] [address] [place] [address] Rhonda Valdez, DELFINA [address] [place] [address] documented as of this encounter Goals Goal Patient Goal Type Associated Problems Recent Progress Patient-Stated? Author Blood Pressure < 140/90 Blood Pressure 144/76( 11:43 AM EST) Denis Watkins, Swapnil documented [...] documented as of this encounter Care Teams [employer] Cook Relationship Specialty Start Date End Date Kathryn Jarquin MD [address] [place] [address] PCP - General Family Medicine 04/04/18 Denis Rodgers, Swapnil [address] [place] [address] Pharmacist Internal Medicine 10/22/22 documented as of this encounter
--- OUTSIDE RECORDS SUMMARY | 2024-07-22 14:43 | XMS_ITS | Clinical Summary ---
Author Organization [employer] Address [address] [facility] 7t [place] [address] Care Team Providers Care Drawing Operator Name Role Phone Kathryn Jarquin MD Primary Care Provider [phone] Denis Rodgers PharmD Unavailable [phone] Allergies No known active allergies Medications * [...] C PSULA TODOS LOS D EN LA FREDDIE ELIZ 023 Active omeprazole (PriLOSEC) 40 MG [...] Take 1 capsule by mouth once daily 023 Active Reguloid 28.3 % powder DISSOLVE 1 TABLESPOONFUL IN 8 OUNCES OF LIQUID AND DRINK TWICE DAILY DIRECTED 023 Active albuterol (2.5 MG/3ML) 0.083% nebulizer solution [...] BY MOUTH EVERY MORNING 90 capsule 2 025 Active hydrALAZINE (Apresoline) 25 MG tablet TAKE 1 TABLET BY MOUTH TWICE DAILY IN THE MORNING AND IN THE EVENING WITH FOOD 180 tablet 2 025 Active oxyCODONE (Roxicodone) 5 MG immediate release tabletIndicatio ns:Upper back pain,Chronic pain of both knees,Chronic female pelvic pain,Chronic pain syndrome TAKE 1 TABLET BY MOUTH AT BEDTIME NEEDED FOR SEVERE PAIN 28 tablet 025 Active oxyCODONE (Roxicodone) 5 MG immediate release tabletIndicatio ns:Upper back pain,Chronic pain of both knees,Chronic female pelvic pain,Chronic pain syndrome Take 1 tablet (5 mg) by mouth if needed at bedtime for severe pain for up to 28 days. 28 tablet 025 2024 Discontinued Active Problems Problem Noted Date Diagnosed Date Long-term current use of opiate analgesic 2024 RTA (renal tubular acidosis) 11/10/2023 Urinary retention [...] (04/05/2024 5:43 AM EST): - followed by [facility] GI - Work on achieving healthy weight and diet Assessment & Plan (05/08/2023 12:06 PM EST): - followed by [facility] GI - Work on achieving healthy weight [...] judicious use and the importance of attending LEAD RECREATION ASSISTANT appt Assessment & Plan (10/30/2022 4:06 PM EDT): - seen by urogynecologist, tag writer, general surgeon, and GI - Will check [...] (08/12/2022 4:18 PM EDT): - seen by tag writer, general surgeon, and GI - Will check [...] last seen in 2020 - seen by [facility] U[facility]N in August 2022, upcoming follow-up appt - check UA/ UCx - hold restarting oxybutynin due to current urinary retention Assessment & Plan (10/30/2022 4:09 PM EDT): - Hx OAB, on oxybutynin, previously following with Dr. Peñaloza, last seen in 2020 - seen by [facility] U[facility] in August 2022, upcoming follow-up [...] Plan (04/05/2024 5:47 AM EST): -following with manager project management, last seen in Nov 2023 -avoid nephrotoxic drugs -no longer on metformin -consider SGLT2i Assessment & Plan (05/08/2023 12:00 PM EST): -following with manager project management -avoid nephrotoxic drugs -no longer on metformin -clarify with GI whether patient needs to be on PPI Assessment & Plan (10/30/2022 4:11 PM EDT): -follow up with manager project management -avoid nephrotoxic drugs -adjust medication: metformin ER to 500 mg bid - lab review: 08/10/22 K 4.6; BUN 28; Scr 1.0 ; eGFR 56; Bicarb 28 Assessment & Plan (08/09/2022 11:50 AM EDT): -follow up with manager project management -avoid nephrotoxic drugs -adjust medication: metformin ER to 500 mg bid Assessment & Plan (06/03/2022 2:31 AM EST): -refer to manager project management -avoid nephrotoxic drugs -adjust medication: metformin ER [...] to start oxycodone under close monitoring with LEAD RECREATION ASSISTANT program; patient verbalized understanding -Discussed about increased [...] (05/08/2023 12:02 PM EST): - followed by [facility] GI - check whether patient needs to be on PPI or can be changed to H2-hao as recommended by manager project management Generalized anxiety disorder with panic attacks 01/23/2015 Assessment & Plan (04/05/2024 5:54 AM EST): -tremor, patient is able to stop tremor voluntarily -check TSH Assessment & Plan (06/03/2022 2:23 AM EST): -tremor -check TSH Irritable bowel syndrome 01/23/2015 Assessment & Plan (04/05/2024 5:45 AM EST): GI: [facility], last visit in Apr 2023 Current medication: Linzess 290 mg daily Normal EGD and colonoscopy in [facility] in Jan 2013. Colonoscopy in Apr 2023 by [facility] GI, hyperplastic polyp. Repeat in 5 years. Assessment & Plan (10/30/2022 4:20 PM EDT): GI: [facility], last visit in 08/04/22 Current medication: Linzess 290 mg daily Normal EGD and colonoscopy in [facility] in Jan 2013. Anticipating another colonoscopy soon Assessment & Plan (08/12/2022 4:19 PM EDT): GI: [facility], last visit in 08/04/22 Current medication: Linzess 290 mg daily Normal EGD and colonoscopy in [facility] in Jan 2013. Anticipating another colonoscopy soon Assessment & Plan (06/03/2022 2:15 AM EST): GI: [facility], last visit in 08/11/21 Current medication: Linzess 290 mg daily Normal EGD and colonoscopy in [facility] in Jan 2013. Pt has to reschedule colonoscopy with GI Specialist Encouraged medication compliance Pt seems to have changed GI; will confirm Recurrent major depression 01/23/2015 Assessment & Plan (04/05/2024 5:54 AM EST): -[facility] provider: CHD -Continue current medications: clonazepam; fluoxetine; prazosin; clonidine; quetiapine Assessment & Plan (05/08/2023 12:22 PM EST): -[facility] provider: CHD -Continue current medications: clonazepam; fluoxetine; prazosin; clonidine; quetiapine Assessment & Plan (10/30/2022 4:18 PM EDT): -[facility] provider: CHD -Continue current medications: clonazepam; fluoxetine; prazosin; clonidine; quetiapine Assessment & Plan (06/03/2022 2:22 AM EST): -[facility] provider: CHD -Continue current medications: clonazepam; fluoxetine; [...] with Denis Rodgers RPh through CDTM and manager project management -Work on lifestyle modifications, DASH diet and increase physical activity -continue amlodipine 5 mg daily -continue chlorthalidone 12.5 mg daily -continue Hydralazine 25 mg BID (manager project management seems to be unaware of medication, will [...] with Denis Rodgers RPh through CDTM and manager project management -Work on lifestyle modifications, DASH diet and increase physical activity -continue lisinopril 20 mg daily -continue chlorthalidone 12.5 mg daily -continue Hydralazine 25 mg BID (manager project management seems to be unaware of medication, will [...] goal today - Comanaged with Denis Rodgers [facility] through CDTM -Work on lifestyle modifications, DASH [...] Encounters Date Type Department Care Team Description 07/22/2024 Orders Only GENERIC EXTERNAL DATA DEPARTMENT Provider, Generic External Data 06/25/2024 Refill [facility] [place] [facility] [address] [place] [address] Kathryn Jarquin MD Upper back pain; Chronic pain of both knees; Chronic female pelvic pain; Chronic pain syndrome 06/21/2024 2:30 PM EDT Clinical Support [facility] [place] [address] [place] [address] Rhonda Valdez RN Chronic pain of both knees (Primary Dx); 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; Long-term current use of opiate analgesic 06/21/2024 Telephone [facility] [place] [address] [place] [address] Rhonda Valdez RN 06/21/2024 Travel 06/06/2024 Telephone [facility] [address] [place] [address] Kathryn Jarquin MD 05/29/2024 Refill [facility] [address] [place] [address] Kathryn Jarquin MD Upper back pain; Chronic pain of both knees; Chronic female pelvic pain; Chronic pain syndrome 05/28/2024 Refill [facility] [address] [place] [address] Kathryn Jarquin MD Upper back pain; Chronic pain of both knees; Chronic female pelvic pain; Chronic pain syndrome 05/25/2024 Travel 05/25/2024 Refill [facility] [address] [place] [address] Rhonda Valdez RN Upper back pain; Chronic pain of both knees; Chronic female pelvic pain; Chronic pain syndrome 05/01/2024 Telephone [facility] [address] [place] [address] Kathryn Jarquin MD 04/30/2024 Refill [facility] [address] [place] [address] Kathryn Jarquin MD Upper back pain; Chronic pain of both knees; Chronic female pelvic pain; Chronic pain syndrome 04/30/2024 Telephone [facility] [address] [place] [address] Kathryn Jarquin MD Nurse Triage 04/26/2024 Telephone [facility] [address] [place] [address] Mya Garvey [place] june recall 04/25/2024 Refill [facility] [address] [place] [address] Kathryn Jarquin MD Hypothyroidism (acquired) from Last 3 Months Immunizations Name Administration [...] Description 08/01/2024 2:45 PM EDT Clinical Support [facility] [address] [place] [address] Rhonda Valdez, RN [address] [place] [address] Health Maintenance Due Date Last Done Comments [...] 01/03, 01/22/2020, Additional history exists Depression Monitoring 09/27/2024 03/29/2024, 024 Hepatitis A Vaccines (2 of 2 - Risk 2-dose series) 09/27/2024 03/29/2024 Alcohol/Substance Use Screening 03/29/2025 03/29/2024 Depression Screening 03/29/2025 03/29/2024, 03/29/20 Diabetes: Foot Exam 03/29/2025 03/29/2024 Lipid Panel [...] Procedure Name Priority Date/Time Associated Diagnosis Comments CBC WITH AUTO DIFFERENTIAL Routine 07/22/2024 2:34 PM EDT POCT FLORENCIA-14 URINE DRUG SCREEN Routine 06/21/2024 2:51 PM EDT 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 Chronic pain of both knees LIPID PANEL WITH REFLEX TO DIRECT LDL [...] 09/13/2022 COLONOSCOPY Routine 09/10/2022 2:43 PM EDT BIBI HISTORICAL HEPATITIS C ANTIBODY RFLX Routine 04/18/2019 8:30 AM EST from Last 3 Months or Most Recently Relevant to Health Maintenance Results * CBC auto differential (07/22/2024 2:34 PM EDT) White Blood Count 10.5 4.8 - 10.8 X10*3/uL [facility] Red Blood Count 4.76 4.20 - 5.50 X10*6/uL [facility] Hemoglobin 13.1 12.0 - 16.0 g/dl [facility] Hematocrit 40.6 37.0 - 47.0 % [facility] Mean Corpuscular Volume 85.3 80.0 - 98.0 fL [facility] Mean Corpuscular Hemoglobin 27.5 27.0 - 33.0 pg [facility] Mean Corpuscular HGB Conc 32.3 31.0 - 35.0 g/dl [facility] Red Cell Distribution Width 15.1 11.0 - 16.0 % [facility] Platelet Count 211 160 - 400 X10*3/uL [facility] Mean Platelet Volume 10.7 9.4 - 12.3 fL [facility] Neutrophils Percent Auto 63.9 45 - 73 % [facility] Imm Gran Pct Auto 0.3 0.0 - 0.4 % [facility] Lymphocytes Percent Auto 28.6 20 - 40 % [facility] Monocytes Percent Auto 5.4 2 - 11 % [facility] Eosinophils Percent Auto 1.4 0 - 4 % [facility] Basophils Percent Auto 0.4 0 - 2 % [facility] NRBC Pct Auto 0.0 0.0 - 0.2 /100WBC [facility] Neutrophils Absolute Auto 6.7 2.0 - 8.3 x10*3/uL [facility] Imm Gran Abs Auto 0.03 0.00 - 0.03 X10*3/uL [facility] Lymphocytes Absolute Auto 3.0 1.2 - 4.9 X10*3/uL [facility] Monocytes Absolute Auto 0.6 0.1 - 1.2 X10*3/uL [facility] Eosinophils Absolute Auto 0.2 0.0 - 0.4 X10*3/uL [facility] Basophils Absolute Auto 0.0 0.0 - 0.2 X10*3/uL [facility] NRBC Abs Auto 0.000 0.0 - 0.012 X10*3/uL [facility] 07/22/2024 2:34 PM EDT 07/22/2024 2:37 PM EDT us Generic External Data Provider LAB BLOOD ORDERAB LES Final Result [facility] [address] [place] [phone] * POCT FLORENCIA-14 Urine Drug Screen (06/21/2024 2:51 PM EDT) Oxycodone Screen, Urine Positive Urine Urine specimen obtained by clean catch procedure / Unknown 06/21/2024 2:51 PM EDT Narrative Rhonda Valdez RN - 06/21/2024 2:51 PM EDT Lot# [id number] Exp: 11-21-25 us Kathryn Jarquin MD POINT OF CARE TEST ENTER/EDIT OR DERABLES Final Result * (ABNORMAL) Lipid Panel with Reflex to Direct LDL (03/29/2024 11:49 AM EST) Triglycerides 232(H) <150 mg/dL [facility] Comment:Desirable Triglyceri de: less than 150 mg/dLBorderline High Triglyceride 150-199 mg/dLHigh Triglyceride: 200-499 mg/dLVery High Triglyceride: greater than or equal to 5OO mg/dL Cholesterol 253(H) <200 mg/dL [facility] Comment:Desirable Cholestero l: less than 200 mg/dLBorderline High Cholesterol: 200-239 mg/dLHigh Cholesterol: greater than 239 mg/dL LDL Cholesterol Calculated 148(H) <100 mg/dL [facility] Comment:Desirable LDL: less than 100 mg/dLNear Optimal/Above Optimal LDL: 110- 129 mg/dLBorderline High LDL: 130-159 mg/dLHigh LDL: 160-189 mg/dLVery High LDL: greater than or equal to 190 mg/dL HDL Cholesterol 59 >40 mg/dL [facility] Comment:Desirable HDL: great er than 40 mg/dL Note: This HDL assay may give artificially low results in patients with liver disease. Blood 03/29/2024 11:4 9 AM EST 03/29/2024 1:10 PM EST Kathryn Jarquin MD LAB BLOOD ORDERABLES Final Resul t [facility] [address] [place] [phone] * (ABNORMAL) POCT glycosylated hemoglobin (Hgb A1c) (03/29/2024 10:40 AM EST) Hemoglobin A1C 10.7(A) 4.0 - 6.0 % [employer] Lot # [id number] Lot# Expiration Date [id number] Blood Capillary blood specimen / Unknown 03/29/2024 10:40 AM EST Kathryn Jarquni MD POINT OF CARE TEST ENTER/EDIT OR DERABLES Final Result * Diabetes Eye Exam (11/18/2023) Eye Exam Normal Normal 11/18/2023 Historical Provider MD HEALTH MAINTENANCE Final Result * Mammography (09/13/2022) Mammogram bi-rads Anatomical Region Laterality Modality Other [facility] Unassigned Pcp HEALTH MAINTENANCE Final Result * HEPATITIS C ANTIBODY RFLX (04/18/2019 8:30 AM EST) Pathologist [facility] HEPATITIS C ANTIBODY NONREACTIVE NONREACTIVE [facility] Comment: Antibodies to HCV not detected; does not exclude early acute HCV infection. 04/18/2019 8:30 AM EST Kathryn Jarquin MD HISTORICAL/NON ORDERABLE LABS Fi nal Result Performing Organization Address City/State/[facility] Co de Phone Number [facility] [address] from Last 3 Months or Most Recently Relevant to Health Maintenance Insurance [facility] [employer] Care Teams Drawing Operator Relationship Specialty Start Date End Date Kathryn Jarquin MD [address] [place] [id number] PCP - General Family Medicine 04/04/18 Denis Rodgers, NamitaD [address] [place] [phone] Pharmacist Internal Medicine 10/22/22
--- OUTSIDE RECORDS SUMMARY | 2024-07-22 14:43 | XMS_ITS | Encounter Summary ---
Author Organization [employer] Address [address] [facility] 7t [place] [address] Care Team Providers Care Plastic Jig And Fixture Builder Name Role Phone Kathryn Jarquin MD Primary Care Provider [phone] Denis Rodgers PharmD Unavailable [phone] Encounter Details Date Type Department Care Team (Late st Contact Info) Description 09/30/2023 Orders Only [facility] [address] [place] [address] Kathryn Jarquin MD [address] [place], [place] [phone] Social History Tobacco Use Types Packs/Day Years [...] Description 08/01/2024 2:45 PM EDT Clinical Support [facility] [address] [place] [address] Rhonda Valdez, RN [address] [place] [address] documented as of this encounter Goals Goal Patient Goal Type Associated Problems Recent Progress Patient-Stated? Author Blood Pressure < 140/90 Blood Pressure 144/76( 024 11:43 AM EST) No Denis Rodgers, Swapnil documented as of this encounter Visit Diagnoses Not on filedocumented in this encounter Care Teams Plastic Jig And Fixture Builder Relationship Specialty Start Date End Date Kathryn Jarquin MD [address] [place] [address] PCP - General Family Medicine 04/04/18 Denis Rodgers, NamitaD [address] [place] [address] Pharmacist Internal Medicine 10/22/22 documented as of this encounter
--- OUTSIDE RECORDS SUMMARY | 2024-07-22 14:43 | XMS_ITS | Clinical Summary ---
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 operator -avoid nephrotoxic drugs -adjust medication: metformin ER [...] Colorectal Cancer Screening: Sigmoidoscopy 2005 Pneumococcal Vaccine: 50+ Years (2 of 2 - PCV) 11/12/2009 11/12/2008 Diabetes: Hemoglobin A1C 09/03/2023 Diabetes: Ophthalmology Exam 09/03/2023 Diabetes: Pedal Pulse Checked 09/03/2023 Diabetes: Sensory Foot Exam 09/03/2023 Diabetes: Visual Foot Exam 09/03/2023 Influenza Vaccine (Season Ended) 2024 03/09/2021, 02/21/2020, 04/16/2019, Additional history exists Hepatitis B Vaccine Aged Out 06/27/2014, 02/18/2014, 08/20/2013 No longer eligible based on patient's age to complete this topic Insurance [facility] Dual SNP ([id number]) [place] [id number] [employer] [place] [id number] Care Teams Utility Bag Assembler Relationship Specialty Start Date End Date Kathryn Jarquin MD [address] [place] [phone] PCP - General Family Medicine 08/31/23
--- OUTSIDE RECORDS SUMMARY | 2024-07-22 14:43 | XMS_ITS | Encounter Summary ---
Author Organization [employer] Address [address] [facility] [address] [place] [address] Care Team Providers Care Manager Contract Name Role Phone Kathryn Jarquin MD Primary Care Provider [phone] Denis Rodgers PharmD Unavailable [phone] Encounter Details Date Type Department Care Team (Late st Contact Info) Description 03/26/2024 Abstract [facility] [address] [place] [address] Mya Garvey [place] Social History Tobacco Use [...] Description 08/01/2024 2:45 PM EDT Clinical Support [facility] [address] [place] [address] Rhonda Valdez, DELFINA [address] [place] [address] documented as of this encounter Goals Goal Patient Goal Type Associated Problems Recent Progress Patient-Stated? Author Blood Pressure < 140/90 Blood Pressure 144/76( 024 11:43 AM EST) No Denis Rodgers, PharmD documented as of this encounter Procedures Procedure Name Priority Date/Time Associated Diagnosis Comments DIABETES EYE EXAM Routine 11/18/2023 documented in this encounter Results * Diabetes Eye Exam (11/18/2023) [facility] Signature Eye Exam Normal Normal 11/18/2023 Historical Provider HEALTH MAINTENANCE Final Result documented in this encounter Visit Diagnoses Not on filedocumented in this encounter Care Teams Manager Contract Relationship Specialty Start Date End Date Kathryn Jarquin MD [address] [place] [address] PCP - General Family Medicine 04/04/18 Denis Rodgers, PharmD [address] [place] [address] Pharmacist Internal Medicine 10/22/22 documented as of this encounter
--- OUTSIDE RECORDS SUMMARY | 2024-07-22 14:43 | XMS_ITS | Encounter Summary ---
Author Organization [facility], Address [address] [place] [address] Phone Care Team Providers Care Solar Sales Assessor Name Role Phone Kathryn Jarquin MD Primary Care Provider [phone] Encounter Details Date Type Department Care Team (Late st Contact Info) Description 09/07/2023 Documentation Only [facility], [address] [place] [address] Doug Luna [address] [place] [address] Social History Tobacco Use Types [...] on filedocumented in this encounter Care Teams Solar Sales Assessor Relationship Specialty Start Date End Date Kathryn Jarquin MD [address] [place] [id number] PCP - General Family Medicine 08/31/23 documented as of this encounter
--- OUTSIDE RECORDS SUMMARY | 2024-07-22 14:43 | XMS_ITS | Encounter Summary ---
Author Organization [employer] Address [address] [facility] 7t [place] [address] Care Team Providers Care Occupational Health And Safety Adviser Name Role Phone Kathryn Jarquin MD Primary Care Provider [phone] Denis Rodgers PharmD Unavailable [phone] Encounter Details Date Type Department Care Team (Late st Contact Info) Description 01/14/2023 Orders Only [facility] MED[facility] [address] [place] [address] Kathryn Jarquin MD [address] [place] [address] Stage 3b chronic kidney disease (CMS/HCC) (Primary [...] Description 08/01/2024 2:45 PM EDT Clinical Support [facility] [address] [place] [address] Rhonda Valdez, RN [address] [place] [address] Scheduled Orders Name Type Priority Associated Diagnoses Orde r Schedule Comprehensive Metabolic Panel Lab Routine Stage 3b chronic kidney disease ([facility]/HCC) Expected: 01/14/2023 (Approximate), Expires: 01/15/2024 Creatine Kinase, [...] Diagnoses Diagnosis Stage 3b chronic kidney disease ([facility]/HCC)- Primary Essential hypertension Unspecified essential hypertension Type 2 diabetes mellitus with hyperglycemia, without long-term current use of insulin (CMS/[facility]) documented in this encounter Care Teams Occupational Health And Safety Adviser Relationship Specialty Start Date End Date Kathryn Jarquin MD [address] [place] [address] PCP - General Family Medicine 04/04/18 Denis Rodgers, NamitaD [address] [place] [address] Pharmacist Internal Medicine 10/22/22 documented as of this encounter
--- OUTSIDE RECORDS SUMMARY | 2024-07-22 14:43 | XMS_ITS | Encounter Summary ---
Author Organization [employer] Address [address] [facility] 7t [place] [address] Care Team Providers Care Vocational Technical Education Director Name Role Phone Kathryn Jarquin MD Primary Care Provider Denis Rodgers PharmD Unavailable [phone] Encounter Details Date Type Department Care Team (Late st Contact Info) Description 04/02/2024 Orders Only [facility] MEDIC[facility] [address] [place] [address] Kathryn Jarquin MD [address] [place] [address] Social History Tobacco Use Types Packs/Day Years [...] Upcoming Encounters Date Type Department Care Team ([facility] st Contact Info) Description 08/01/2024 2:45 PM EDT Clinical Support [facility] [address] [place] [address] Rhonda Valdez, RN [address] [place] [address] documented as of this encounter Goals Goal [...] documented as of this encounter Care Teams Vocational Technical Education Director Relationship Specialty Start Date End Date Kathryn Jarquin MD [address] [place] [address] PCP - General Family Medicine 04/04/18 Denis Rodgers, PharmD [address] [place] [address] Pharmacist Internal Medicine 10/22/22 documented as of this encounter
--- OUTSIDE RECORDS SUMMARY | 2024-07-22 14:43 | XMS_ITS | Encounter Summary ---
Author Organization [employer] Address [address] [facility] 7t [place] [address] Care Team Providers Care Retail Equipment Associate Name Role Phone Kathryn Jarquin MD Primary Care Provider [phone] Denis Rodgers PharmD Unavailable [phone] Encounter Details Date Type Department Care Team (Late st Contact Info) Description 01/14/2023 Orders Only [facility] [address] [place] [address] Kathryn Jarquin MD [address] [place] [address] Stage 3b chronic kidney disease (CMS/HCC) (Primary [...] Description 08/01/2024 2:45 PM EDT Clinical Support [facility] [address] [place] [address] Rhonda Valdez, RN [address] [place] [address] documented as of this encounter Goals Goal [...] (CMS/HCC) documented in this encounter Care Teams Retail Equipment Associate Relationship Specialty Start Date End Date Kathryn Jarquin MD [address] [place] [address] PCP - General Family Medicine 04/04/18 Denis Rodgers, PharmD [address] [place] [address] Pharmacist Internal Medicine 10/22/22 documented as of this encounter
[2024-07-22 14:45] LABS: Appearance Urine Clear; Color Urine Yellow; Glucose Urine UA 500 mg/dL (Negative); Leukocyte Esterase Urine Negative (Negative); Nitrite Urine Negative (Negative); PH 5.5 (5.0-9.0); Urine Blood Negative (Negative); Urine Ketones Negative (Negative); Urine Protein Negative (Neg-Trace)
[2024-07-22 14:59] LABS: Alanine Aminotransferase 16 U/L (0-31); Albumin Level 4.1 g/dL (3.5-5.0); Alkaline Phosphatase 125 U/L (39-117); Anion Gap 16 (12-20); Aspartate Amino Transferase 25 U/L (5-31); Bilirubin Total 0.2 mg/dL (0.0-1.0); Blood Urea Nitrogen 26 mg/dL (9-16); Calcium 9.9 mg/dL (8.4-10.2); Carbon Dioxide 25 mmol/L (22-29); Chloride 102 mmol/L (96-108); Creatinine Clr Calc Pharmacy 32.1; Estimated Glomerular Filt Rate 35; Glucose Random 287 mg/dL (60-115); Potassium 4.4 mmol/L (3.3-5.1); Sodium 139 mmol/L (135-145); Total Protein 7.5 g/dL (6.5-8.0)
[2024-07-22 15:57] VITALS: BP 162/73; PULSE 78; RESP 16; TEMP 36.3; O2SAT 96
[2024-07-22 17:39] VITALS: BP 150/78; PULSE 73; RESP 16; TEMP 36.3; O2SAT 96
[2024-07-22] MEDS: oxyCODONE HCl Immed Release 5 MG TABLET PO (17:41)
[2024-07-22 17:45] VITALS: BP 150/78; PULSE 73; RESP 16; TEMP 36.3; O2SAT 96
== END 2024-07-22 17:46 | disposition home or self-care (01) ==
PROVIDERS: Nurse Practitioner Family; Emergency Provider Emergency Medicine Emergency Medical Services; PCP Family Medicine
DX: R10.30 Lower abdominal pain, unspecified (principal); E11.9 Type 2 diabetes mellitus without complications; N39.3 Stress incontinence (female) (male); E13.22 Other specified diabetes mellitus with diabetic chronic kidney disease; I12.9 Hypertensive chronic kidney disease with stage 1 through stage 4 chronic kidney disease, or unspecified chronic kidney disease; N18.9 Chronic kidney disease, unspecified
CPT/HCPCS: 36415; 74176; 80053; 81003; 85025; 99284

== ENCOUNTER → 2024-07-22 15:44 | Outpatient (BNV) | payer OTHER, SELFPAY | PROVIDERS: Emergency Provider Emergency Medicine Emergency Medical Services; PCP Family Medicine; Visit Provider Radiology Diagnostic Radiology | DX: R10.30 Lower abdominal pain, unspecified (principal) | CPT/HCPCS: 74176 ==

== ENCOUNTER 2024-07-31 13:40 | Outpatient (AMB) | payer OTHER, SELFPAY ==
--- NOTE | 2024-07-31 13:42 | A.OFFVIS_ITS ---
Vital Signs 07/31/24 13:50 Height 4 ft 11 in Weight 167 lb BMI 33.7 Intake Visit Reasons: Bilateral knee pain, Right knee pain and giving way Intake Note: Wen is a 69 year old female who presents with complaints of progressively worsening bilateral knee pain, right greater than left. She describes her right knee pain as sharp in nature. She states that her right knee will give out several times per day. Her right knee pain has gotten worse over the last 4 years. She has had injections in the past which gave her minimal relief. She has failed the last 6 weeks of conservative treatment which has included a knee brace, physical therapy, Tylenol and anti-inflammatory medicines. She also reports intermittent low back pain. She denies any numbness or tingling in either lower extremity. Electrical Control Assembler Required: Yes Electrical Control Assembler Services: Electrical Control Assembler Present Electrical Control Assembler Name: Pedro ID#[id number] Allergies No Known Allergies [NO KNOWN ALLERGIES] Allergy (Unknown, Verified 07/31/24 13:52) UNKNOWN Medication List - Last Reviewed 07/31/24 by BRISEIDA Shaw acetaminophen (Tylenol Extra Strength) 500 mg PO Q6H PRN amlodipine 5 mg PO DAILY aripiprazole 2 mg PO DAILY aspirin (Adult Aspirin Regimen) 81 mg PO DAILY atorvastatin 80 mg PO DAILY chlorthalidone 50 mg PO DAILY cholecalciferol (vitamin D3) (Vitamin D3) 25 mcg PO QAM clonazepam 2 mg PO DAILY clonidine HCl 0.1 mg PO BID conjugated estrogens (Premarin) 0 mg vaginal cyclobenzaprine 5 mg PO Q8H PRN 5 days dicyclomine 20 mg PO TID docusate sodium (Colace) 100 mg PO DAILY 30 days fluoxetine 60 mg PO QAM fluticasone propionate 220 mcg/actuation (Flovent HFA) 220 mcg inhalation ONCE glipizide 5 mg PO BID hydralazine 25 mg PO DAILY levothyroxine 50 mcg PO QAM linaclotide (Linzess) 290 mcg PO QAM 30 days magnesium oxide 400 mg PO DAILY methylcellulose (with sugar) (Citrucel (sucrose) oral powder) 1 tbsp PO BID mirtazapine 45 mg PO BEDTIME omeprazole 40 mg PO DAILY oxybutynin chloride ER 5 mg PO DAILY oxycodone 5 mg PO DAILY PRN prazosin 1 mg PO BEDTIME quetiapine ER 200 mg PO DAILY sennosides (senna) 17.2 mg PO DAILY simethicone (Gas Relief (simethicone)) 180 mg PO BID 30 days PFSH Medical History Dysuria Chronic kidney disease Diabetes 1.5, managed as type 2 HTN (hypertension) KIRSTIE (stress urinary incontinence, female) Urge incontinence Chronic idiopathic constipation GERD (gastroesophageal reflux disease) Irritable bowel syndrome with constipation Surgical History H/O tubal ligation Hx of section H/O: hysterectomy History of esophagogastroduodenoscopy (EGD) Hx of colonoscopy Family History Father Family hx of prostate cancer Cancer Brother Cancer Mother HTN (hypertension) Maternal Aunt Skin cancer, Onset Age: 59 Social History Household Members: None Alcohol intake: never Patient Tobacco Use Status: Never used Tobacco Current occupational status: disabled Female Reproductive History Menstrual Age of Menarche: 12 Physical Exam Vital Signs: BMI result Body Mass Index 33.7 Const Other: Well-nourished well-developed very friendly female awake alert and oriented x3 in no acute distress Extrem Other: Bilateral lower extremity examination shows good capillary refill, no skin lesi ons noted, normal sensation light touch Right knee examination shows a minimal effusion, minimal crepitus with range of motion, tenderness along her medial joint line, positive Mariama's test, no ins tability Results Reviewed Results Reviewed: Standing full weight-bearing x-rays of the patient's right knee show mild diffuse joint space narrowing, no acute bony abnormalities Assessment & Plan Assessment & Plan (1) Tear of medial meniscus of right knee: Code(s): S83.241A - Other tear of medial meniscus, current injury, right knee, initial encounter Category: Medical (2) Low back pain: Code(s): M54.50 - Low back pain, unspecified Category: Medical (3) Pain in both knees: Code(s): M25.561 - Pain in right knee; M25.562 - Pain in left knee Plan Ms. Moran presents with right knee pain and mechanical symptoms most likely due to a medial meniscus tear. Thus, I will send the patient for an MRI of her right knee for further evaluation. I will see her back once the MRI is completed to discuss the findings and treatment options. She also has progressively worsening low back pain. I will refer her to our pain management department here at [facility]. Feel free to call me at any time karin juan questions regarding her orthopedic management arise. Thank you very much for asking me to see this very friendly patient. I spent 20 minutes in reviewing the patient's records and imaging studies, seeing the patient and documenting in the medical record. Orders: Orders MR knee RT wo con 07/31/24 S83.241A - Other tear of medial meniscus, current injury, right knee, initial encounter Referrals Pain Management Referral M54.50 - Low back pain, unspecified Coding Level of Care Code New Pt Level 3 (30856) Complex EM visit Add On G2211 Diagnoses Tear of medial meniscus of right knee S83.241A Low back pain M54.50 Pain in both knees M25.561; M25.562
[2024-07-31 13:50] VITALS: BMI 33.7
--- OUTSIDE RECORDS SUMMARY | 2024-07-31 15:45 | XMS_ITS | Encounter Summary ---
Author Organization [employer] Address [address] [facility] 7t [place] [address] Care Team Providers Care Felt Hooker Name Role Phone Kathryn Jarquin MD Primary Care Provider Denis Rodgers PharmD Unavailable [phone] Encounter Details Date Type Department Care Team (Late st Contact Info) Description 01/14/2023 Orders Only [facility] MED[facility]INE [address] [place] [address] Kathryn Jarquin MD [address] [place] [address] Stage 3b chronic kidney disease (CMS/HCC) (Primary [...] [facility] [address] [place] [address] Rhonda Valdez, RN [address] [place] [address] documented as of this encounter Goals Goal [...] (CMS/HCC) documented in this encounter Care Teams Felt Hooker Relationship Specialty Start Date End Date Kathryn Jarquin MD [address] [place] [address] PCP - General Family Medicine 04/04/18 Denis Rodgers, PharmD [address] [place] [address] Pharmacist Internal Medicine 10/22/22 documented as of this encounter
--- OUTSIDE RECORDS SUMMARY | 2024-07-31 15:45 | XMS_ITS | Encounter Summary ---
Author Organization [employer] Address [address] [facility] [address] 7[address] [place] [address] Care Team Providers Care Health Companion Name Role Phone Kathryn Jarquin MD Primary Care Provider [phone] Denis Rodgers PharmD Unavailable [phone] Encounter Details Date Type Department Care Team (Late st Contact Info) Description 03/26/2024 Abstract [facility] MED[facility]INE [address] [place] [address] Mya Garvey [place] Social History Tobacco Use [...] 2:45 PM EDT Clinical Support [facility] & [facility] [address] [place] [address] Rhonda Valdez, DELFINA [address] [place] [address] documented as of this encounter Goals Goal Patient Goal Type Associated Problems Recent Progress Patient-Stated? Author Blood Pressure < 140/90 Blood Pressure 144/76( 024 11:43 AM EST) No Denis Rodgers, PharmD documented as of this encounter Procedures Procedure Name Priority Date/Time Associated Diagnosis Comments DIABETES EYE EXAM Routine 11/18/2023 documented in this encounter Results * Diabetes Eye Exam (11/18/2023) [facility] Signature Eye Exam Normal Normal 11/18/2023 Historical Provider HEALTH MAINTENANCE Final Result documented in this encounter Visit Diagnoses Not on filedocumented in this encounter Care Teams Health Companion Relationship Specialty Start Date End Date Kathryn Jarquin MD [address] [place] [address] PCP - General Family Medicine 04/04/18 Denis Rodgers, PharmD [address] [place] [address] Pharmacist Internal Medicine 10/22/22 documented as of this encounter
--- OUTSIDE RECORDS SUMMARY | 2024-07-31 15:45 | XMS_ITS | Clinical Summary ---
Author Organization [facility] Address [address] [facility] [address] [place] [address] Phone Care Team Providers Care Solutions Delivery Consultant Name Role Phone Kathryn Jarquni MD Primary Care Provider [phone] Allergies No known active allergies Active Problems [...] Last Assessment & Plan: -follow up with weasand trimmer -avoid nephrotoxic drugs -adjust medication: metformin ER [...] patient's age to complete this topic Insurance [facility] Dual SNP ([id number]) [place] [id number] [employer] [place] [id number] Care Teams Solutions Delivery Consultant Relationship Specialty Start Date End Date Kathryn Jarquin MD [address] [place] [address] PCP - General Family Medicine 08/31/23
--- OUTSIDE RECORDS SUMMARY | 2024-07-31 15:45 | XMS_ITS | Encounter Summary ---
Author Organization [employer] Address [address] [facility] 7t [place] [address] Care Team Providers Care Psychotherapist Social Worker Name Role Phone Kathryn Jarquin MD Primary Care Provider [phone] Denis Rodgers PharmD Unavailable [phone] Reason for Visit * Reason Comments Med Refill Encounter Details Date Type Department Care Team (Late st Contact Info) Description 05/28/2024 Refill [facility] MEDICINE [address] [place] [address] Kathryn Jarquin MD [address] [place] [address] Upper back pain; Chronic pain of both [...] 2:45 PM EDT Clinical Support [facility] MED & PEDS [address] [place] [address] Rhonda Valdez, DELFINA [address] [place] [address] documented as of this encounter Goals Goal [...] documented as of this encounter Care Teams Psychotherapist Social Worker Relationship Specialty Start Date End Date Kathryn Jarquin MD [address] [place] [address] PCP - General Family Medicine 04/04/18 Denis Rodgers, Swapnil [address] [place] [address] Pharmacist Internal Medicine 10/22/22 documented as of this encounter
--- OUTSIDE RECORDS SUMMARY | 2024-07-31 15:45 | XMS_ITS | Encounter Summary ---
Author Organization [employer] Address [address] [facility] 7t [place] [address] Care Team Providers Care Waste Elimination Name Role Phone Kathryn Jarquin MD Primary Care Provider [phone] Denis Rodgers PharmD Unavailable [phone] Encounter Details Date Type Department Care Team (Late st Contact Info) Description 01/14/2023 Orders Only [facility] MEDICINE [address] [place] [address] Kathryn Jarquin MD [address] [place] [address] Stage 3b chronic kidney disease (CMS/HCC) (Primary [...] Description 08/01/2024 2:45 PM EDT Clinical Support [facility] MED & PEDS [address] [place] [address] Rhonda Valdez, RN [address] [place] [address] Scheduled Orders Name Type Priority Associated Diagnoses Orde r Schedule Comprehensive Metabolic Panel Lab Routine Stage 3b chronic kidney disease ([facility]/HCC) Expected: 01/14/2023 (Approximate), Expires: 01/15/2024 Creatine [...] Diagnoses Diagnosis Stage 3b chronic kidney disease ([facility]/HCC)- Primary Essential hypertension Unspecified essential hypertension Type 2 diabetes mellitus with hyperglycemia, without long-term current use of insulin (CMS/[facility]) documented in this encounter Care Teams Waste Elimination Relationship Specialty Start Date End Date Kathryn Jarquin MD [address] [place] [address] PCP - General Family Medicine 04/04/18 Denis Rodgers, NamitaD [address] [place] [address] Pharmacist Internal Medicine 10/22/22 documented as of this encounter
--- OUTSIDE RECORDS SUMMARY | 2024-07-31 15:45 | XMS_ITS | Encounter Summary ---
Author Organization [employer] Address [address] [facility] 7t [place] [address] Care Team Providers Care Crm System Administrator Name Role Phone Kathryn Jarquin MD Primary Care Provider [phone] Denis Rodgers PharmD Unavailable [phone] Encounter Details Date Type Department Care Team (Late st Contact Info) Description 09/30/2023 Orders Only [facility] MEDICINE [address] [place] [address] Kathryn Jarquin MD [address] [place], [place] [id number] Social History Tobacco Use Types Packs/Day Years [...] Description 08/01/2024 2:45 PM EDT Clinical Support [facility] MED & PEDS [address] [place] [address] Rhonda Valdez, RN [address] [place] [address] documented as of this encounter Goals Goal Patient Goal Type Associated Problems Recent Progress Patient-Stated? Author Blood Pressure < 140/90 Blood Pressure 144/76( 024 11:43 AM EST) No Denis Rodgers, Swapnil documented as of this encounter Visit Diagnoses Not on filedocumented in this encounter Care Teams Crm System Administrator Relationship Specialty Start Date End Date Kathryn Jarquin MD [address] [place] [address] PCP - General Family Medicine 04/04/18 Denis Rodgers, NamitaD [address] [place] [address] Pharmacist Internal Medicine 10/22/22 documented as of this encounter
--- OUTSIDE RECORDS SUMMARY | 2024-07-31 15:45 | XMS_ITS | Encounter Summary ---
Author Organization [employer] Address [address] [facility] 7t [place] [address] Care Team Providers Care In Home Sales Representative Name Role Phone Kathryn Jarquin MD Primary Care Provider [phone] Denis Rodgers PharmD Unavailable [phone] Reason for Visit * Reason Comments Med Refill Encounter Details Date Type Department Care Team (Late st Contact Info) Description 05/29/2024 Refill [facility] MEDICINE [address] [place] [address] Kathryn Jarquin MD [address] [place] [address] Upper back pain; Chronic pain of both [...] EDT Clinical Support [facility] [address] [place] [address] Rhonda Valdez, DELFINA [address] [place] [address] documented as of this encounter Goals Goal [...] documented as of this encounter Care Teams In Home Sales Representative Relationship Specialty Start Date End Date Kathryn Jarquin MD [address] [place] [address] PCP - General Family Medicine 04/04/18 Denis Rodgers, Swapnil [address] [place] [address] Pharmacist Internal Medicine 10/22/22 documented as of this encounter
--- OUTSIDE RECORDS SUMMARY | 2024-07-31 15:45 | XMS_ITS | Encounter Summary ---
Author Organization [facility], Address [address] [place] [address] Phone Care Team Providers Care Hiv Prevention Specialist Name Role Phone Kathryn Jarquin MD Primary Care Provider [phone] Encounter Details Date Type Department Care Team (Late st Contact Info) Description 09/07/2023 Documentation Only [facility], [address] [place] [address] Doug Luna [address] [place] [address] Social History Tobacco Use Types [...] on filedocumented in this encounter Care Teams Hiv Prevention Specialist Relationship Specialty Start Date End Date Kathryn Jarquin MD [address] [place] [address] PCP - General Family Medicine 08/31/23 documented as of this encounter
--- OUTSIDE RECORDS SUMMARY | 2024-07-31 15:45 | XMS_ITS | Encounter Summary ---
Author Organization [employer] Address [address] [facility] 7t [place] [address] Care Team Providers Care Range Rider Name Role Phone Kathryn Jarquin MD Primary Care Provider [phone] Denis Rodgers PharmD Unavailable [phone] Encounter Details Date Type Department Care Team (Late st Contact Info) Description 04/02/2024 Orders Only [facility] MEDICINE [address] [place] [address] Kathryn Jarquin MD [address] [place] [address] Social History Tobacco Use Types Packs/Day Years [...] Upcoming Encounters Date Type Department Care Team ([facility] st Contact Info) Description 08/01/2024 2:45 PM EDT Clinical Support [facility]EDS [address] [place] [address] Rhonda Valdez, RN [address] [place] [address] documented as of this encounter Goals Goal [...] documented as of this encounter Care Teams Range Rider Relationship Specialty Start Date End Date Kathryn Jarquin MD [address] [place] [address] PCP - General Family Medicine 04/04/18 Denis Rodgers, PharmD [address] [place] [address] Pharmacist Internal Medicine 10/22/22 documented as of this encounter
--- OUTSIDE RECORDS SUMMARY | 2024-07-31 15:45 | XMS_ITS | Clinical Summary ---
Author Organization [email or web address] Address [address] [facility] 7t [place] [address] Care Team Providers Care Galley Stripper Name Role Phone Kathryn Jarquin MD Primary Care Provider [phone] Denis Rodgers PharmD Unavailable [phone] Allergies No known active allergies Medications * [...] mouth if needed at bedtime for severe pain. 28 tablet 025 Active oxyCODONE (Roxicodone) 5 MG immediate release tabletIndicatio ns:Upper back pain,Chronic pain of both knees,Chronic female pelvic pain,Chronic pain syndrome TAKE 1 TABLET BY MOUTH AT BEDTIME NEEDED FOR SEVERE PAIN 28 tablet 025 2024 Discontinued(R eorder (will not trigger notification to Pharmacy)) oxyCODONE (Roxicodone) 5 MG immediate release tabletIndicatio ns:Upper back pain,Chronic pain of both knees,Chronic female pelvic pain,Chronic pain syndrome Take 1 tablet (5 mg) by mouth if needed at bedtime for severe pain. 28 tablet 025 2024 Discontinued(R eorder (will not trigger notification [...] (04/05/2024 5:43 AM EST): - followed by [facility] - Work on achieving healthy weight and diet Assessment & Plan (05/08/2023 12:06 PM EST): - followed by [facility] - Work on achieving healthy weight [...] judicious use and the importance of attending EDGER RUNNER appt Assessment & Plan (10/30/2022 4:06 PM EDT): - seen by urogynecologist, dynamics ax solution architect, general surgeon, and GI - Will check [...] (08/12/2022 4:18 PM EDT): - seen by dynamics ax solution architect, general surgeon, and GI - Will check [...] last seen in 2020 - seen by [facility] in August 2022, upcoming follow-up appt - check UA/ UCx - hold restarting oxybutynin due to current urinary retention Assessment & Plan (10/30/2022 4:09 PM EDT): - Hx OAB, on oxybutynin, previously following with Dr. Peñaloza, last seen in 2020 - seen by [facility] in August 2022, upcoming follow-up appt [...] Plan (04/05/2024 5:47 AM EST): -following with vice chair, last seen in Nov 2023 -avoid nephrotoxic drugs -no longer on metformin -consider SGLT2i Assessment & Plan (05/08/2023 12:00 PM EST): -following with vice chair -avoid nephrotoxic drugs -no longer on metformin -clarify with GI whether patient needs to be on PPI Assessment & Plan (10/30/2022 4:11 PM EDT): -follow up with vice chair -avoid nephrotoxic drugs -adjust medication: metformin ER to 500 mg bid - lab review: 08/10/22 K 4.6; BUN 28; Scr 1.0 ; eGFR 56; Bicarb 28 Assessment & Plan (08/09/2022 11:50 AM EDT): -follow up with vice chair -avoid nephrotoxic drugs -adjust medication: metformin ER to 500 mg bid Assessment & Plan (06/03/2022 2:31 AM EST): -refer to vice chair -avoid nephrotoxic drugs -adjust medication: metformin ER [...] to start oxycodone under close monitoring with EDGER RUNNER program; patient verbalized understanding -Discussed about increased [...] (05/08/2023 12:02 PM EST): - followed by [facility] - check whether patient needs to be on PPI or can be changed to H2-hao as recommended by vice chair Generalized anxiety disorder with panic attacks 01/23/2015 Assessment & Plan (04/05/2024 5:54 AM EST): -tremor, patient is able to stop tremor voluntarily -check TSH Assessment & Plan (06/03/2022 2:23 AM EST): -tremor -check TSH Irritable bowel syndrome 01/23/2015 Assessment & Plan (04/05/2024 5:45 AM EST): GI: [facility], last visit in Apr 2023 Current medication: Linzess 290 mg daily Normal EGD and colonoscopy in [facility] in Jan 2013. Colonoscopy in Apr 2023 by [facility], hyperplastic polyp. Repeat in 5 years. Assessment & Plan (10/30/2022 4:20 PM EDT): GI: [facility], last visit in 08/04/22 Current medication: Linzess 290 mg daily Normal EGD and colonoscopy in [facility] in Jan 2013. Anticipating another colonoscopy soon Assessment & Plan (08/12/2022 4:19 PM EDT): GI: [facility], last visit in 08/04/22 Current medication: Linzess 290 mg daily Normal EGD and colonoscopy in [facility] in Jan 2013. Anticipating another colonoscopy soon Assessment & Plan (06/03/2022 2:15 AM EST): GI: [facility], last visit in 08/11/21 Current medication: Linzess 290 mg daily Normal EGD and colonoscopy in [facility] in Jan 2013. Pt has to reschedule colonoscopy with GI Specialist Encouraged medication compliance Pt seems to have changed GI; will confirm Recurrent major depression 01/23/2015 Assessment & Plan (04/05/2024 5:54 AM EST): -[facility] provider: CHD -Continue current medications: clonazepam; fluoxetine; prazosin; clonidine; quetiapine Assessment & Plan (05/08/2023 12:22 PM EST): -[facility] provider: CHD -Continue current medications: clonazepam; fluoxetine; prazosin; clonidine; quetiapine Assessment & Plan (10/30/2022 4:18 PM EDT): -[facility] provider: CHD -Continue current medications: clonazepam; fluoxetine; prazosin; clonidine; quetiapine Assessment & Plan (06/03/2022 2:22 AM EST): -[facility] provider: CHD -Continue current medications: clonazepam; fluoxetine; [...] with Denis Rodgers RPh through CDTM and vice chair -Work on lifestyle modifications, DASH diet and increase physical activity -continue amlodipine 5 mg daily -continue chlorthalidone 12.5 mg daily -continue Hydralazine 25 mg BID (vice chair seems to be unaware of medication, will [...] with Denis Rodgers RPh through CDTM and vice chair -Work on lifestyle modifications, DASH diet and increase physical activity -continue lisinopril 20 mg daily -continue chlorthalidone 12.5 mg daily -continue Hydralazine 25 mg BID (vice chair seems to be unaware of medication, will [...] goal today - Comanaged with Denis Rodgers Rp through CDTM -Work on lifestyle modifications, DASH [...] Encounters Date Type Department Care Team Description 07/25/2024 Refill [facility] MEDICINE [address] [place] [address] Kathryn Jarquin MD Upper back pain; Chronic pain of both knees; Chronic female pelvic pain; Chronic pain syndrome 07/24/2024 Refill [facility] MED & PEDS [address] [place] [address] Rhonda Valdez RN Upper back pain; Chronic pain of both knees; Chronic female pelvic pain; Chronic pain syndrome 07/24/2024 Telephone [facility] MEDICINE [address] [place] [address] Kathryn Jarquin MD Med Refill 07/22/2024 Orders Only GENERIC EXTERNAL DATA DEPARTMENT Provider, Generic External Data 06/25/2024 Refill [facility] MED & PEDS [address] [place] [address] Kathryn Jarquin MD Upper back pain; Chronic pain of both knees; Chronic female pelvic pain; Chronic pain syndrome 06/21/2024 2:30 PM EDT Clinical Support [facility] MED [facility] PEDS [address] [place] [address] Rhonda Valdez RN Chronic pain of both knees (Primary Dx); 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 (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) use of opiate analgesic; Long-term current use of opiate analgesic 06/21/2024 Telephone [facility] MED & PEDS [address] [place] [address] Rhonda Valdez RN 06/21/2024 Travel 06/06/2024 Telephone [facility] MEDICINE [address] [place] [address] Kathryn Jarquin MD 05/29/2024 Refill [facility] MEDICINE [address] [place] [address] Kathryn Jarquin MD Upper back pain; Chronic pain of both knees; Chronic female pelvic pain; Chronic pain syndrome 05/28/2024 Refill [facility] MEDICINE [address] [place] [address] Kathryn Jarquin MD Upper back pain; Chronic pain of both knees; Chronic female pelvic pain; Chronic pain syndrome 05/25/2024 Travel 05/25/2024 Refill [facility] MED & PEDS [address] [place] [address] Rhonda Valdez RN Upper back pain; Chronic pain of both knees; Chronic female pelvic pain; Chronic pain syndrome from Last 3 Months Immunizations Name Administration [...] Upcoming Encounters Date Type Department Care Team ([facility] st Contact Info) Description 08/01/2024 2:45 PM EDT Clinical Support [facility] MED & PEDS [address] [place] [address] Rhonda Valdez, RN [address] [place] [address] Health Maintenance Due Date Last Done Comments [...] 09/13/2024 09/13/2022, 01/03, 01/22/2020, Additional history exists Hepatitis A Vaccines (2 of 2 - [...] 024 11:43 AM EST) No Denis Rodgers, NamitaD Procedures Procedure Name Priority Date/Time Associated Diagnosis Comments CT ABDOMEN PELVIS WO CONTRAST Routine 07/22/2024 4:22 PM EDT URINALYSIS WITH REFLEX MICROSCOPIC Routine 07/22/2024 2:35 PM EDT COMPREHENSIVE METABOLIC PANEL Routine 07/22/2024 2:34 PM EDT CBC WITH AUTO DIFFERENTIAL Routine 07/22/2024 2:34 PM EDT POCT FLORENCIA-14 URINE DRUG SCREEN Routine 06/21/2024 2:51 PM EDT [facility] (current) use of opiate analgesic Chronic pain [...] Recently Relevant to Health Maintenance Results * CT Abdomen Pelvis w/o Contrast (07/22/2024 4:22 PM EDT) Anatomical Region Laterality Modality Body, Pelvis, Abdomen Computed T omography 07/22/2024 4:22 PM EDT Narrative 07/22/2024 4:23 PM EDT ? [facility] ?[address] ?[place] [address] ? CT Scan Report ? Signed ? Patient: Moran,Wen ?MR#: [id number] ?? [id number] ? : 1955 ?Acct:[id number] ? Age/Sex: 69 / F ?ADM Date: 04/20/25 ? Loc: HO.ED ? Attending Dr: ? Ordering Physician: Arabella Clifton ?? Date of Service: 07/22/24 ?? Procedure(s): CT abdomen pelvis wo IV con ?? Accession Number(s): [id number] ? cc: Arabella Clifton; Kathryn Jarquin MD ? Report Number: ?? [id number]: Total DLP = ??743.00 mGy-cm ? CLINICAL HISTORY: lower abd pain ? CT abdomen and pelvis without contrast ? Comparison: CT/IL/SR - CT ABDOMEN PELVIS WO IV CON - 12/12/22 15:18 EDT ?? CT/SR - CT ABDOMEN PELVIS WO IV CON - 07/26/22 17:02 EDT ? Findings: ?? No consolidation at the lung bases. Calcified granuloma. Severe calcified ?? coronary artery disease. Trace calcification of the aortic valve. ? Underdistended gallbladder. Unremarkable bladder. No hydronephrosis. Right ?? nephrolithiasis is punctate. Status post hysterectomy. The other solid ?? organs are unremarkable. ? No bowel wall thickening or dilation. A normal appendix is identified. ?? Colonic diverticulosis. No inflamed diverticula or pericolonic stranding. ? No aneurysm. Severe calcified atherosclerotic disease. ?? No lymphadenopathy. ?? No ascites. Status post umbilical hernia repair. ? No acute osseous abnormality. ? Impression: ?? No acute findings. ? This document has been electronically signed by: Zulay Espino MD ?? on 07/22/2024 16:22:02 ? Dictated By: ?Zulay Diaz MD ? Signed By: ?<Electronically signed by Zulay Diaz MD in OV> ? 07/22/24 1622 ? DD/ 1622 ? TD/TT: 07/22/24 1622 ? Completions Engineer: ? Procedure Note Patito Mcgovern - 07/22/[address] [address] [address] Scan Report Signed Patient: Devin Moran#: [id number] : 7Acct:[id number] Age/Sex: 69 / FADM Date: 07/22/24 Loc: HO.ED Attending Dr: Ordering Physician: Arabella Clifton Date of Service: 07/22/24 Procedure(s): CT abdomen pelvis wo IV con Accession Number(s): [id number] cc: Arabella Clifton; Kathryn Jarquin MD Report Number: [id number]: Total DLP = 743.00 mGy-cm CLINICAL HISTORY: lower abd pain CT abdomen and pelvis without contrast Comparison: CT/IL/SR - CT ABDOMEN PELVIS WO IV CON - 12/12/22 15:[address]/SR - CT ABDOMEN PELVIS WO IV CON - 07/26/22 17:02 EDT Findings: No consolidation at the lung bases. Calcified granuloma. Severe calcified coronary artery disease. Trace calcification of the aortic valve. Underdistended gallbladder. Unremarkable bladder. No hydronephrosis. Right nephrolithiasis is punctate. Status post hysterectomy. The other solid organs are unremarkable. No bowel wall thickening or dilation. A normal appendix is identified. Colonic diverticulosis. No inflamed diverticula or pericolonic stranding. No aneurysm. Severe calcified atherosclerotic disease. No lymphadenopathy. No ascites. Status post umbilical hernia repair. No acute osseous abnormality. Impression: No acute findings. This document has been electronically signed by: Zulay Espino MD on 07/22/2024 16:22:02 Dictated By: Zulay Diaz MD Signed By: <Electronically signed by Zulay Diaz MD in OV> 07/22/24 1622 DD/ 162 TD/TT: 07/22/24 162 Completions Engineer: [facility] External Provider IMG CT PROCEDURES Final Result * (ABNORMAL) Urinalysis w/reflex microscopic (07/22/2024 2:35 PM EDT) Color Urine Yellow [facility] Appearance Urine Clear [facility] PH 5.5 5.0 - 9.0 [facility] Glucose Urine UA 500(A) Negative mg/dL [facility] Urine Blood Negative Negative [facility] Specific [place] - Urine 1.020 1.005 - 1.025 [facility] Urine Protein Negative Neg-Trace mg/dL [facility] Urine Ketones Negative Negative mg/dL [facility] Nitrite Urine Negative Negative [facility] Leukocyte Esterase Urine Negative Negative [facility] 07/22/2024 2:35 PM EDT 07/22/2024 2:37 PM EDT Narrative [facility] - 07/22/2024 2:48 PM EDT Urine, Clean Catch us Generic External Data Provider LAB URINE ORDERAB LES Final Result [facility] [address] [place] [address] [phone] * CBC auto differential (07/22/2024 2:34 PM EDT) White Blood Count 10.5 4.8 - 10.8 X10*3/uL [facility] Red Blood Count 4.76 4.20 - 5.50 X10*6/uL [facility] Hemoglobin 13.1 12.0 - 16.0 g/dl [facility] Hematocrit 40.6 37.0 - 47.0 % [facility] Mean Corpuscular Volume 85.3 80.0 - 98.0 fL [facility] Mean Corpuscular Hemoglobin 27.5 27.0 - 33.0 pg [facility] Mean Corpuscular HGB Conc 32.3 31.0 - 35.0 g/dl [facility] Red Cell Distribution Width 15.1 11.0 - 16.0 % [facility] Platelet Count 211 160 - 400 X10*3/uL [facility] Mean Platelet Volume 10.7 9.4 - 12.3 fL [facility] Neutrophils Percent Auto 63.9 45 - 73 % [facility] Imm Gran Pct Auto 0.3 0.0 - 0.4 % [facility] Lymphocytes Percent Auto 28.6 20 - 40 % [facility] Monocytes Percent Auto 5.4 2 - 11 % [facility] Eosinophils Percent Auto 1.4 0 - 4 % [facility] Basophils Percent Auto 0.4 0 - 2 % [facility] NRBC Pct Auto 0.0 0.0 - 0.2 /100WBC [facility] Neutrophils Absolute Auto 6.7 2.0 - 8.3 x10*3/uL [facility] Imm Gran Abs Auto 0.03 0.00 - 0.03 X10*3/uL [facility] Lymphocytes Absolute Auto 3.0 1.2 - 4.9 X10*3/uL [facility] Monocytes Absolute Auto 0.6 0.1 - 1.2 X10*3/uL [facility] Eosinophils Absolute Auto 0.2 0.0 - 0.4 X10*3/uL [facility] Basophils Absolute Auto 0.0 0.0 - 0.2 X10*3/uL [facility] NRBC Abs Auto 0.000 0.0 - 0.012 X10*3/uL [facility] 07/22/2024 2:3 4 PM EDT 07/22/2024 2:37 PM EDT us Generic External Data Provider LAB BLOOD ORDERAB LES Final Result [facility] [address] [place] [address] [phone] * (ABNORMAL) Comprehensive Metabolic Panel (07/22/2024 2:34 PM EDT) Sodium 139 135 - 145 mmol/L [facility] Potassium 4.4 3.3 - 5.1 mmol/L [facility] Chloride 102 96 - 108 mmol/L [facility] Carbon Dioxide 25 22 - 29 mmol/L [facility] Anion Gap 16 12 - 20 [facility] Urea Nitrogen (BUN) 26(H) 9 - 16 mg/dL [facility] Creatinine, Serum 1.49(H) 0.5 - 1.4 mg/dL [facility] Creatinine Clr Calc Pharmacy 32.1 [facility] Comment:Provided height and weight: 149.86 cm,76.1 kg.eGFR (calculated from the MDRD study equation) and eCrCl(calculated from the Cockcroft-Gault equation) are based ondifferent parameters and may not yield comparable results.If eCrCl result is absurd, please check patient'sheight/weight. Estimated Glomerular Filt Rate 35 [facility] Comment:Chronic Kidney Disea se: Estimated GFR < 60 mL/min/1.82v4Kfsuoo Kidney Disease: Estimated GFR < 15 mL/min/1.73m2 Glucose 287(H) 60 - 115 mg/dL [facility] Calcium 9.9 8.4 - 10.2 mg/dL [facility] Bilirubin, Total 0.2 0.0 - 1.0 mg/dL [facility] Aspartate Amino Transferase 25 5 - 31 U/L [facility] Alanine Aminotransferase 16 0 - 31 U/L [facility] Total Protein 7.5 6.5 - 8.0 g/dL [facility] Albumin Level 4.1 3.5 - 5.0 g/dL [facility] Alkaline Phosphatase 125(H) 39 - 117 U/L [facility] 07/22/2024 2:34 PM EDT 07/22/2024 2:37 PM EDT us Generic External Data Provider LAB BLOOD ORDERAB LES Final Result [facility] [address] [place] [phone] * POCT FLORENCIA-14 Urine Drug Screen (06/21/2024 2:51 PM EDT) Oxycodone Screen, Urine Positive Urine Urine specimen obtained by clean catch procedure / Unknown 06/21/2024 2:51 PM EDT Narrative Rhonda Valdez RN - 06/21/2024 2:51 PM EDT Lot# [id number] Exp: 11-21-25 us Kathryn Jarquin MD POINT OF CARE TEST ENTER/EDIT OR DERABLES Final Result * (ABNORMAL) Lipid Panel with Reflex to Direct LDL (03/29/2024 11:49 AM EST) Triglycerides 232(H) <150 mg/dL [facility] Comment:Desirable Triglyceri de: less than 150 mg/dLBorderline High Triglyceride 150-199 mg/dLHigh Triglyceride: 200-499 mg/dLVery High Triglyceride: greater than or equal to 5OO mg/dL Cholesterol 253(H) <200 mg/dL [facility] Comment:Desirable Cholestero l: less than 200 mg/dLBorderline High Cholesterol: 200-239 mg/dLHigh Cholesterol: greater than 239 mg/dL LDL Cholesterol Calculated 148(H) <100 mg/dL [facility] Comment:Desirable LDL: less than 100 [...] 9 AM EST 03/29/2024 1:10 PM EST us Kathryn Jarquin MD LAB BLOOD ORDERABLES Final Resul t [facility] [address] [place] [phone] * (ABNORMAL) POCT glycosylated hemoglobin (Hgb A1c) (03/29/2024 10:40 AM EST) Hemoglobin A1C 10.7(A) 4.0 - 6.0 % QC Media Lot # [id number] Lot# Expiration Date [id number] Blood Capillary blood specimen / Unknown 03/29/2024 10:40 AM EST us Kathryn Jarquin MD POINT OF CARE TEST ENTER/EDIT OR DERABLES Final Result * Hm Diabetes Eye Exam (11/18/2023) Eye Exam Normal Normal 11/18/2023 Historical Provider MD HEALTH MAINTENANCE Final Result * Mammography (09/13/2022) Pathologist [facility] Mammogram bi-rads Anatomical Region Laterality Modality Other [facility] Unassigned Pcp HEALTH MAINTENANCE Final Result * HEPATITIS C ANTIBODY RFLX (04/18/2019 8:30 AM EST) Pathologist [facility] HEPATITIS C ANTIBODY NONREACTIVE NONREACTIVE [facility] Comment: Antibodies to HCV not detected; does not exclude early acute HCV infection. 04/18/2019 8:30 AM EST Kathryn Jarquin MD HISTORICAL/NON ORDERABLE LABS Fi nal Result [facility] [place] [address], from Last 3 Months or Most Recently Relevant to Health Maintenance Insurance [facility] OPTIONS (O D-SNP) [place] [id number] [employer] Care Teams Galley Stripper Relationship Specialty Start Date End Date Kathryn Jarquin MD [address] [place] [address] PCP - General Family Medicine 04/04/18 Denis Rodgers, NamitaD [address] [place] [address] Pharmacist Internal Medicine 10/22/22
== END 2024-07-31 14:17 | disposition home or self-care (01) ==
LOC: HO.HOS 13:41
PROVIDERS: PCP Family Medicine; Visit Provider Orthopaedic Surgery
DX: S83.241A Other tear of medial meniscus, current injury, right knee, initial encounter (principal); M54.50 Low back pain, unspecified; M25.561 Pain in right knee; M25.562 Pain in left knee
CPT/HCPCS: 99203; G2211

== ENCOUNTER → 2024-07-31 13:40 | Outpatient (BNVA) | payer OTHER, SELFPAY | PROVIDERS: PCP Family Medicine; Visit Provider Orthopaedic Surgery | DX: S83.241A Other tear of medial meniscus, current injury, right knee, initial encounter (principal); M25.562 Pain in left knee; M54.50 Low back pain, unspecified | CPT/HCPCS: 99202 ==

== ENCOUNTER 2024-08-06 14:37 | Outpatient (REF) | payer OTHER, SELFPAY ==
--- NOTE | ~2024-08-06 | MR_ITS ---
EXAMINATION: MR KNEE WITHOUT CONTRAST, RIGHT CLINICAL INFORMATION: Other tear of medial meniscus, current injury, right knee. Right knee pain and swelling. COMPARISON: Right knee radiographs 03/29/2024. TECHNIQUE: MRI of the right knee without contrast was performed using routine sequences on a 1.5 Stephanie Siemens high-field scanner. FINDINGS: MENISCI: Medial Meniscus: Suspect subtle radial tearing of the free margin of the body. Otherwise, the medial meniscus appears intact. Lateral Meniscus: Mildly increased signal noted in the posterior horn near the root entry zone without definable tear, this is likely intrasubstance degeneration (series 9, images 16-17). Remainder of the meniscus appears intact and normal in signal. LIGAMENTS: Anterior Cruciate: Intact and normal in signal. Posterior Cruciate: Intact and normal in signal. Medial Collateral: Intact and normal in signal. Lateral Collateral Complex: The biceps femoris tendon, conjoined tendon, and popliteus tendon are all intact and normal in signal. There is mild thickening and increased signal of the fibular collateral ligament abutting the insertion on the lateral femoral condyle, most likely sequela of old injury/degenerative. EXTENSOR MECHANISM: Intact and normal in signal. No abnormal fat pad signal. PATELLAR RETINACULUM: Intact and normal in signal. The medial patellofemoral ligament is intact. BONE: There is no gross bone marrow edema, subchondral bone plate edema, or evidence of infiltrating abnormal bone marrow signal. JOINTS/CARTILAGE: Medial Compartment: Subtle chondrocalcinosis is present. Tiny marginal spurs without loss of joint space. Weightbearing and nonweightbearing cartilage is intact. No cartilage defects. Lateral Compartment: Subtle chondrocalcinosis is present. Tiny marginal spurs without loss of joint space. Weightbearing and nonweightbearing cartilage is intact. No cartilage defects. Patellofemoral Compartment: Minimal degenerative arthritis present without cartilaginous defect. Tiny marginal spurs. Normal alignment of the patella within the trochlea. JOINT FLUID AND BURSAE: There is a small joint effusion present. There is fluid within the prepatellar bursa suggestive of prepatellar bursitis. OTHER: There is a tiny amount of fluid in the medial popliteal fossa. Popliteal fossa otherwise normal. The imaged musculature is normal in signal. MR/MR knee RT wo con IMPRESSION: 1. Suspect subtle radial tearing of the body of the medial meniscus. 2. Increased signal within the posterior horn of the lateral meniscus, not definitively extending to the joint surface to define a tear. This is likely intrasubstance degeneration. 3. Mild thickening of the fibular collateral ligament abutting the insertion on the lateral femoral condyle, likely reflective of old injury or degenerative. 4. Subtle chondrocalcinosis in the medial and lateral compartments without full-thickness cartilaginous defects. Mild tricompartmental osteoarthritis, most significant patellofemoral compartment. 5. Small joint effusion. 6. Suspect prepatellar bursitis. 7. There is a tiny Weller cyst in the medial popliteal fossa. Electronically signed by: Lazaro Mitchell MD 08/06/2024 03:53 PM EDT
--- OUTSIDE RECORDS SUMMARY | 2024-08-06 16:12 | XMS_ITS | Encounter Summary ---
Author Organization [employer] Address [address] [facility] 7t [place] [address] Care Team Providers Care Production Illustrator Name Role Phone Kathryn Jarquin MD Primary Care Provider [phone] Denis Rodgers PharmD Unavailable [phone] Reason for Visit * Reason Comments Med Refill Encounter Details Date Type Department Care Team (Late st Contact Info) Description 05/29/2024 Refill [facility] MEDICINE [address] [place] [address] Kathryn Jarquin MD [address] [place] [address] Upper back pain; Chronic pain of both [...] Care Team (Late st Contact Info) Description 08/07/2024 9:15 AM EDT Office Visit [facility] MEDICINE [address] [place] [address] Kathryn Jarquin MD [address] [place] [phone] 09/05/2024 2:15 PM EDT Clinical Support [facility] [address] [place] [address] Rhonda Valdez, RN [address] [place] [address] documented as of this encounter Goals Goal [...] documented as of this encounter Care Teams Production Illustrator Relationship Specialty Start Date End Date Kathryn Jraquin MD [address] [place] [phone] PCP - General Family Medicine 04/04/18 Denis Rodgers, NamitaD [address] [place] [phone] Pharmacist Internal Medicine 10/22/22 documented as of this encounter
--- OUTSIDE RECORDS SUMMARY | 2024-08-06 16:12 | XMS_ITS | Encounter Summary ---
Author Organization [employer] Address [address] [facility] 7t [place] [address] Care Team Providers Care Manager Workers Compensation Name Role Phone Kathryn Jarquin MD Primary Care Provider [phone] Denis Rodgers PharmD Unavailable [phone] Reason for Visit * Reason Comments Med Refill Encounter Details Date Type Department Care Team (Late st Contact Info) Description 05/28/2024 Refill [facility] MED[facility]INE [address] [place] [address] Kathryn Jarquin MD [address] [place] [address] Upper back pain; Chronic pain of both [...] Description 08/07/2024 9:15 AM EDT Office Visit [facility] MEDICINE [address] [place] [address] Kathryn Jarquin MD [address] [place] [phone] 09/05/2024 2:15 PM EDT Clinical Support [facility] PEDS [address] [place] [address] Rhonda Valdez, RN [address] [place] [address] documented as of this encounter Goals Goal [...] documented as of this encounter Care Teams Manager Workers Compensation Relationship Specialty Start Date End Date Kathryn Jarquin MD [address] [place] [phone] PCP - General Family Medicine 04/04/18 Denis Rodgers, NamitaD [address] [place] [phone] Pharmacist Internal Medicine 10/22/22 documented as of this encounter
--- OUTSIDE RECORDS SUMMARY | 2024-08-06 16:12 | XMS_ITS | Encounter Summary ---
Author Organization [employer] Address 75 [facility] 7t [place] [address] Care Team Providers Care Junk Removal Specialist Name Role Phone Kathryn Jarquin MD Primary Care Provider Denis Rodgers PharmD Unavailable [phone] Encounter Details Date Type Department Care Team (Latest Contact Info) Description 08/01/2024 Travel Social History Tobacco Use Types Packs/Day Years [...] Description 08/07/2024 9:15 AM EDT Office Visit [facility] MEDICINE [address] [place] [address] Kathryn Jarquin MD 230 [place] [address] 09/05/2024 2:15 PM EDT Clinical Support [facility] MED & PEDS 505 [place], [place] [phone] Rhonda Valdez, RN 505 [place], [place] [phone] documented as of this encounter Goals Goal [...] documented as of this encounter Care Teams Junk Removal Specialist Relationship Specialty Start Date End Date Kathryn Jarquin MD [address] [place] [address] PCP - General Family Medicine 04/04/18 Denis Rodgers, NamitaD [address] [place] [address] [phone] Pharmacist Internal Medicine 10/22/22 documented as of this encounter
--- OUTSIDE RECORDS SUMMARY | 2024-08-06 16:12 | XMS_ITS | Encounter Summary ---
Author Organization [employer] Address 75 [facility] 7t [place] [address] Care Team Providers Care Boiler Reliner Name Role Phone Kathryn Jarquin MD Primary Care Provider [phone] Denis Rodgers PharmD Unavailable [phone] Reason for Visit * Reason Onset Date Comments Chart Prep 08/06/2024 Encounter Details Date Type Department Care Team ([facility] st Contact Info) Description 08/06/2024 Telephone [facility] MED & PEDS [address] [place], [place] [phone] Kathryn Jarquin MD 230 [place] [address] Chart Prep Social History Tobacco Use Types Packs/Day Years [...] encounter Miscellaneous Notes * Telephone Encounter - Cathi Peter [place] - 08/06/2024 12:48 PM EDT Chart Prep Labs: done Images: done Referrals: not applicable Vaccines due: Covid, Hep A, RSV, and Zoster Screenings: mammogram Overdue care gaps: A1c, Glucose, SDOH, Oral health screening, and Disability screen documented in this encounter Plan of Treatment Upcoming Encounters Date Type Department Care Team (Late st Contact Info) Description 08/07/2024 9:15 AM EDT Office Visit [facility] MEDICINE 230 [place] [address] Kathryn Jarquin MD 230 [place] [address] 09/05/2024 2:15 PM EDT Clinical Support [facility] MED & PEDS 505 [place] [address] Rhonda Valdez, DELFINA 505 [place] [address] documented as of this encounter Goals Goal [...] documented as of this encounter Care Teams Boiler Reliner Relationship Specialty Start Date End Date Kathryn Jarquin MD [address] [place] [address] PCP - General Family Medicine 04/04/18 Denis Rodgers, Swapnil [address] [place] [address] Pharmacist Internal Medicine 10/22/22 documented as of this encounter
--- OUTSIDE RECORDS SUMMARY | 2024-08-06 16:12 | XMS_ITS | Encounter Summary ---
Author Organization [employer] Address 75 [facility] 7t [place] [address] Care Team Providers Care Aeronautical Engineering Technologist Name Role Phone Kathryn Jarquin MD Primary Care Provider [phone] Denis Rodgers PharmD Unavailable [phone] Encounter Details Date Type Department Care Team ([facility] st Contact Info) Description 08/01/2024 Telephone [facility]S 505 [place] [address] Rhonda Valdez, DELFINA 505 [place] [address] Social History Tobacco Use Types Packs/Day Years [...] t he electric, gas, oil or water [employer] threatened to shut off services in your [...] Telephone Encounter - Rhonda Valdez RN - 08/01/2024 2:44 PM EDT Fyi. 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 Short 6 pills at pill count, Oxycodone 5mg. States has been taking it bid instead of once daily d/t severe pain. Utox not performed as patient was not able to urinate.Reminded pt of the [employer] LABORER/DESIGNER Agreement rules, verbalized understanding. Next [employer] LABORER/DESIGNER appt 09/05/24. documented in this encounter Plan of Treatment Upcoming Encounters Date Type Department Care Team (Late st Contact Info) Description 08/07/2024 9:15 AM EDT Office Visit [facility] MEDICINE 230 [place] [address] Kathryn Jarquin MD 230 [place] [address] 09/05/2024 2:15 PM EDT Clinical Support [facility] CH[facility] MED & PEDS 505 [place] [address] Rhonda Valdez, DELFINA 505 [place] [address] documented as of this encounter Goals Goal [...] documented as of this encounter Care Teams Aeronautical Engineering Technologist Relationship Specialty Start Date End Date Kathryn Jarquin MD 230 [place] [address] PCP - General Family Medicine 04/04/18 Denis Rodgers, PharmD 230 [place] [address] Pharmacist Internal Medicine 10/22/22 documented as of this encounter
--- OUTSIDE RECORDS SUMMARY | 2024-08-06 16:13 | XMS_ITS | Encounter Summary ---
Author Organization [employer] Address 75 [facility] 7t [place] [address] Care Team Providers Care Credit Verification Clerk Name Role Phone Kathryn Jarquin MD Primary Care Provider [phone] Denis Rodgers PharmD Unavailable [phone] Reason for Visit * Reason Comments controlled substance treatment Encounter Details Date Type Department Care Team (Latest Contact Info) Description 08/01/2024 2:45 PM EDT Clinical Support [facility] MED & PEDS 505 [place], [place] [phone] Rhonda Valdez, DELFINA 505 [place] [address] Chronic pain of both knees Social History Tobacco Use Types Packs/Day Years [...] AM EDT documented as of this encounter Progress Notes * Rhonda Valdez RN - 08/01/2024 2:45 PM EDT S: FORESTER AIDE [place]. BRISEIDA Baugh interpreting. Patient prescribed Oxycodone 5mg QD PRN. Patient states she takes medication only as needed. Patient denies nicotine, ETOH or illicit drugs use. Currently rates pain a 10/10 located in the abdomen, R knee. States medication is about 50% effective at alleviating pain when taken. Last PCP f/u 03/27/25. Chronic pain group pamphlet given at the last visit, patient not interested at this time. O: ETHNOGRAPHER verified today. Rx last filled 07/26/24. Pill count performed, patient has 15 pills left, 21 expected. Short 6 pills, States has been taking it bid instead of once daily d/t severe pain. Reminded pt of the FORESTER AIDE Agreement rules, verbalized understanding. PCP notified. Utox not performed as patient was not able to urinate. PCP notified. A: FORESTER AIDE Agreement Initiation: Opioid dependence related to chronic pain. P: Patient to continue taking medication only as prescribed; Next FORESTER AIDE RV appointment scheduled for 09/05/24 @ 2:15pm. Appt reminder given. F/U sooner PRN. Patient verbalized understanding and agreed toplan. documented in this encounter Plan of Treatment Upcoming Encounters Date Type Department Care Team (Late st Contact Info) Description 08/07/2024 9:15 AM EDT Office Visit [facility] MEDICINE 230 [place] [address] Kathryn Jarquin MD 230 [place] [address] 09/05/2024 2:15 PM EDT Clinical Support [facility] CHC MED & PEDS 505 [place] [address] Rhonda Valdez, RN 505 [place] [address] documented as of this encounter Goals Goal Patient Goal Type Associated Problems Recent Progress Patient-Stated? Author Blood Pressure < 140/90 Blood Pressure 144/76( 11:43 AM EST) No Denis Rodgers, PharmD documented as of this encounter Visit Diagnoses Diagnosis Chronic pain of both knees documented in this encounter Additional Health Concerns Assessment Noted Time PHQ-9 Depression Total Score: 12 024 10:26 AM EST documented as of this encounter Care Teams Credit Verification Clerk Relationship Specialty Start Date End Date Kathryn Jarquin MD [address] [place] [address] PCP - General Family Medicine 04/04/18 Denis Rodgers, PharmD [address] [place] [address] Pharmacist Internal Medicine 10/22/22 documented as of this encounter
--- OUTSIDE RECORDS SUMMARY | 2024-08-06 16:13 | XMS_ITS | Encounter Summary ---
Author Organization [employer] Address [address] [facility] [address] 7t [place] [address] Care Team Providers Care Certified Pharmacist Assistant Name Role Phone Kathryn Jarquin MD Primary Care Provider Denis Rodgers PharmD Unavailable [phone] Encounter Details Date Type Department Care Team (Late st Contact Info) Description 03/26/2024 Abstract [facility] MEDICINE 230 [place] [address] Mya Garvey [place] Social History Tobacco Use [...] Description 08/07/2024 9:15 AM EDT Office Visit [facility] MEDICINE 230 [place] [address] Kathryn Jarquin MD 230 [place], [place] [phone] 09/05/2024 2:15 PM EDT Clinical Support [facility] MED & PEDS 505 [place], [place] [phone] Rhonda Valdez, RN 505 [place] [address] documented as of this encounter Goals Goal Patient Goal Type Associated Problems Recent Progress Patient-Stated? Author Blood Pressure < 140/90 Blood Pressure 144/76( 024 11:43 AM EST) Denis Watkins, NamitaD documented as of this encounter Procedures Procedure Name Priority Date/Time Associated Diagnosis Comments DIABETES EYE EXAM Routine 11/18/2023 documented in this encounter Results * Diabetes Eye Exam (11/18/2023) [facility] Eye Exam Normal Normal 11/18/2023 us Historical Provider HEALTH MAINTENANCE Final Result documented in this encounter Visit Diagnoses Not on filedocumented in this encounter Care Teams Certified Pharmacist Assistant Relationship Specialty Start Date End Date Kathryn Jarquin MD 230 [place], [place] [phone] PCP - General Family Medicine 04/04/18 Denis Rodgers, PharmD 230 [place] [address] Pharmacist Internal Medicine 10/22/22 documented as of this encounter
--- OUTSIDE RECORDS SUMMARY | 2024-08-06 16:13 | XMS_ITS | Encounter Summary ---
Author Organization [employer] Address 75 [facility] 7t [place] [address] Care Team Providers Care Agile Coach Name Role Phone Kathryn Jarquin MD Primary Care Provider [phone] Denis Rodgers PharmD Unavailable [phone] Encounter Details Date Type Department Care Team (Late st Contact Info) Description 01/14/2023 Orders Only [facility] MEDICINE 230 [place] [address] Kathryn Jarquin MD [address] [place] [address] Stage 3b chronic kidney disease (CMS/HCC) (Primary [...] t he electric, gas, oil or water [employer] threatened to shut off services in your [...] Description 08/07/2024 9:15 AM EDT Office Visit [facility] 230 [place] [address] Kathryn Jarquin MD [address] [place], [place] [phone] 09/05/2024 2:15 PM EDT Clinical Support [facility] MED & PEDS 505 [place], [place] [phone] Rhonda Valdez, RN 505 [place] [address] Scheduled Orders Name Type Priority Associated Diagnoses Orde r Schedule Comprehensive Metabolic Panel Lab Routine Stage 3b chronic kidney disease ([facility]/HCC) Expected: 01/14/2023 (Approximate), Expires: 01/15/2024 Creatine Kinase, Total Lab Routine Stage 3b chronic kidney disease ([facility]/HCC) Expected: 01/14/2023 (Approximate), Expires: 01/15/2024 documented as of this encounter Goals Goal Patient Goal Type Associated Problems Recent Progress Patient-Stated? Author Blood Pressure < 140/90 Blood Pressure 144/76( 024 11:43 AM EST) No Denis Rodgers, PharmD documented as of this encounter Visit Diagnoses Diagnosis Stage 3b chronic kidney disease ([facility]/HCC)- Primary Essential hypertension Unspecified essential hypertension Type 2 diabetes mellitus with hyperglycemia, without long-term current use of insulin ([facility]) documented in this encounter Care Teams Agile Coach Relationship Specialty Start Date End Date Kathryn Jarquin MD [address] [place], [place] [phone] PCP - General Family Medicine 04/04/18 Denis Rodgers, PharmD [address] [place] [address] Pharmacist Internal Medicine 10/22/22 documented as of this encounter
--- OUTSIDE RECORDS SUMMARY | 2024-08-06 16:13 | XMS_ITS | Encounter Summary ---
Author Organization [facility], Address [address] [place] [address] Phone Care Team Providers Care Lymphedema Therapist Name Role Phone Kathryn Jarquin MD Primary Care Provider [phone] Encounter Details Date Type Department Care Team (Late st Contact Info) Description 09/07/2023 Documentation Only [facility], [address] [place] [address] Doug Luna [address] [place] [address] Social History Tobacco Use Types [...] on filedocumented in this encounter Care Teams Lymphedema Therapist Relationship Specialty Start Date End Date Kathryn Jarquin MD [address] [place] [address] PCP - General Family Medicine 08/31/23 documented as of this encounter
--- OUTSIDE RECORDS SUMMARY | 2024-08-06 16:13 | XMS_ITS | Encounter Summary ---
Author Organization [employer] Address 75 [facility] 7t [place] [address] Care Team Providers Care Income Tax Analyst Name Role Phone Kathryn Jarquin MD Primary Care Provider [phone] Denis Rodgers PharmD Unavailable [phone] Encounter Details Date Type Department Care Team (Late st Contact Info) Description 01/14/2023 Orders Only [facility] MEDICINE 230 [place] [address] Kathryn Jarquin MD [address] [place] [address] Stage 3b chronic kidney disease (CMS/HCC) (Primary [...] Description 08/07/2024 9:15 AM EDT Office Visit [facility] MEDICINE 230 [place] [address] Kathryn Jarquin MD [address] [place] [address] 09/05/2024 2:15 PM EDT Clinical Support [facility] MED & PEDS 505 [place], [place] [phone] Rhonda Valdez, RN 505 [place] [address] documented as of this encounter Goals Goal [...] (CMS/HCC) documented in this encounter Care Teams Income Tax Analyst Relationship Specialty Start Date End Date Kathryn Jarquin MD [address] [place] [phone] PCP - General Family Medicine 04/04/18 Denis Rodgers, NamitaD [address] [place] [address] Pharmacist Internal Medicine 10/22/22 documented as of this encounter
--- OUTSIDE RECORDS SUMMARY | 2024-08-06 16:13 | XMS_ITS | Encounter Summary ---
Author Organization [employer] Address 75 [facility] 7t [place] [address] Care Team Providers Care Hotel Service Manager Name Role Phone Kathryn Jarquin MD Primary Care Provider [phone] Denis Rodgers PharmD Unavailable [phone] Encounter Details Date Type Department Care Team (Late st Contact Info) Description 04/02/2024 Orders Only [facility] MEDICINE 230 [place] [address] Kathryn Jarquin MD 230 [place] [address] Social History Tobacco Use Types Packs/Day Years [...] Description 08/07/2024 9:15 AM EDT Office Visit [facility] MEDICINE [address] [place] [address] Kathryn Jarquin MD [address] [place] [address] 09/05/2024 2:15 PM EDT Clinical Support [facility] MED & PEDS 505 [place] [address] Rhonda Valdez, RN 505 [place] [address] documented as of this encounter Goals Goal [...] documented as of this encounter Care Teams Hotel Service Manager Relationship Specialty Start Date End Date Kathryn Jarquin MD [address] [place] [address] PCP - General Family Medicine 04/04/18 Denis Rodgers PharmD [address] [place] [address] Pharmacist Internal Medicine 10/22/22 documented as of this encounter
--- OUTSIDE RECORDS SUMMARY | 2024-08-06 16:13 | XMS_ITS | Encounter Summary ---
Author Organization [employer] Address 75 [facility] 7t [place] [address] Care Team Providers Care Centrifugal Screen Tender Name Role Phone Kathryn Jarquin MD Primary Care Provider [phone] Denis Rodgers PharmD Unavailable [phone] Encounter Details Date Type Department Care Team (Late st Contact Info) Description 09/30/2023 Orders Only [facility] MEDICINE 230 [place] [address] Kathryn Jarquin MD 230 [place], [place] [phone] Social History Tobacco Use Types Packs/Day Years [...] Description 08/07/2024 9:15 AM EDT Office Visit [facility] MEDICINE 230 [place] [address] Kathryn Jarquin MD 230 [place] [address] 09/05/2024 2:15 PM EDT Clinical Support [facility] CH[facility] MED & PEDS 505 [place], [place] [phone] Rhonda Valdez, DELFINA 505 [place], [place] [phone] documented as of this encounter Goals Goal Patient Goal Type Associated Problems Recent Progress Patient-Stated? Author Blood Pressure < 140/90 Blood Pressure 144/76( 024 11:43 AM EST) No Denis Rodgers, Swapnil documented as of this encounter Visit Diagnoses Not on filedocumented in this encounter Care Teams Centrifugal Screen Tender Relationship Specialty Start Date End Date Kathryn Jarquin MD [address] [place] [address] PCP - General Family Medicine 04/04/18 Denis Rodgers, PharmD [address] [place] [address] Pharmacist Internal Medicine 10/22/22 documented as of this encounter
--- OUTSIDE RECORDS SUMMARY | 2024-08-06 16:13 | XMS_ITS | Clinical Summary ---
Author Organization [employer] Address [address] [place] [address] Care Team Providers Care Skate Shop Attendant Name Role Phone Kathryn Jarquin MD Primary Care Provider [phone] Denis Rodgers PharmD Unavailable [phone] Allergies No known active allergies Medications * [...] (04/05/2024 5:43 AM EST): - followed by [facility] GI - Work on achieving healthy weight and diet Assessment & Plan (05/08/2023 12:06 PM EST): - followed by [facility] GI - Work on achieving healthy weight [...] judicious use and the importance of attending [employer] appt Assessment & Plan (10/30/2022 4:06 PM EDT): - seen by urogynecologist, manager inpatient, general surgeon, and GI - Will check [...] (08/12/2022 4:18 PM EDT): - seen by manager inpatient, general surgeon, and GI - Will check [...] last seen in 2020 - seen by [facility] in August 2022, upcoming follow-up appt - check UA/ UCx - hold restarting oxybutynin due to current urinary retention Assessment & Plan (10/30/2022 4:09 PM EDT): - Hx OAB, on oxybutynin, previously following with Dr. Peñaloza, last seen in 2020 - seen by [facility] in August 2022, upcoming follow-up [...] Plan (04/05/2024 5:47 AM EST): -following with electron beam welder setter, last seen in Nov 2023 -avoid nephrotoxic drugs -no longer on metformin -consider SGLT2i Assessment & Plan (05/08/2023 12:00 PM EST): -following with electron beam welder setter -avoid nephrotoxic drugs -no longer on metformin -clarify with GI whether patient needs to be on PPI Assessment & Plan (10/30/2022 4:11 PM EDT): -follow up with electron beam welder setter -avoid nephrotoxic drugs -adjust medication: metformin ER to 500 mg bid - lab review: 08/10/22 K 4.6; BUN 28; Scr 1.0 ; eGFR 56; Bicarb 28 Assessment & Plan (08/09/2022 11:50 AM EDT): -follow up with electron beam welder setter -avoid nephrotoxic drugs -adjust medication: metformin ER to 500 mg bid Assessment & Plan (06/03/2022 2:31 AM EST): -refer to electron beam welder setter -avoid nephrotoxic drugs -adjust medication: metformin ER [...] to start oxycodone under close monitoring with [employer] program; patient verbalized understanding -Discussed about increased [...] (05/08/2023 12:02 PM EST): - followed by [facility] GI - check whether patient needs to be on PPI or can be changed to H2-hao as recommended by electron beam welder setter Generalized anxiety disorder with panic attacks 01/23/2015 Assessment & Plan (04/05/2024 5:54 AM EST): -tremor, patient is able to stop tremor voluntarily -check TSH Assessment & Plan (06/03/2022 2:23 AM EST): -tremor -check TSH Irritable bowel syndrome 01/23/2015 Assessment & Plan (04/05/2024 5:45 AM EST): GI: [facility], last visit in Apr 2023 Current medication: Linzess 290 mg daily Normal EGD and colonoscopy in [facility] in Jan 2013. Colonoscopy in Apr 2023 by [facility] GI, hyperplastic polyp. Repeat in 5 years. Assessment & Plan (10/30/2022 4:20 PM EDT): GI: [facility], last visit in 08/04/22 Current medication: Linzess 290 mg daily Normal EGD and colonoscopy in [facility] in Jan 2013. Anticipating another colonoscopy soon Assessment & Plan (08/12/2022 4:19 PM EDT): GI: [facility], last visit in 08/04/22 Current medication: Linzess 290 mg daily Normal EGD and colonoscopy in [facility] in Jan 2013. Anticipating another colonoscopy soon Assessment & Plan (06/03/2022 2:15 AM EST): GI: [facility], last visit in 08/11/21 Current medication: Linzess 290 mg daily Normal EGD and colonoscopy in [facility] in Jan 2013. Pt has to reschedule colonoscopy with GI Specialist Encouraged medication compliance Pt seems to have changed GI; will confirm Recurrent major depression 01/23/2015 Assessment & Plan (04/05/2024 5:54 AM EST): -[facility] provider: CHD -Continue current medications: clonazepam; fluoxetine; prazosin; clonidine; quetiapine Assessment & Plan (05/08/2023 12:22 PM EST): -[facility] provider: CHD -Continue current medications: clonazepam; fluoxetine; prazosin; clonidine; quetiapine Assessment & Plan (10/30/2022 4:18 PM EDT): -[facility] provider: CHD -Continue current medications: clonazepam; fluoxetine; prazosin; clonidine; quetiapine Assessment & Plan (06/03/2022 2:22 AM EST): -[facility] provider: CHD -Continue current medications: [...] with Denis Rodgers RPh through [facility] and electron beam welder setter -Work on lifestyle modifications, DASH diet and increase physical activity -continue amlodipine 5 mg daily -continue chlorthalidone 12.5 mg daily -continue Hydralazine 25 mg BID (electron beam welder setter seems to be unaware of medication, will [...] with Denis Rodgers RPh through [facility] and electron beam welder setter -Work on lifestyle modifications, DASH diet and increase physical activity -continue lisinopril 20 mg daily -continue chlorthalidone 12.5 mg daily -continue Hydralazine 25 mg BID (electron beam welder setter seems to be unaware of medication, will [...] Encounters Date Type Department Care Team Description 08/06/2024 Telephone [facility] [address] [place] [address] Kathryn Jarquin MD Chart Prep 08/01/2024 2:45 PM EDT Clinical Support [facility] [address] [place] [address] Rhonda Valdez, manager urology pain of both knees 08/01/2024 Telephone [facility] [address] [place] [address] Rhonda Valdez RN 08/01/2024 Travel 07/25/2024 Refill [facility] [address] [place] [address] Kathryn Jarquin MD Upper back pain; Chronic pain of both knees; Chronic female pelvic pain; Chronic pain syndrome 07/24/2024 Refill [facility] [address] [place] [address] Rhonda Valdez RN Upper back pain; Chronic pain of both knees; Chronic female pelvic pain; Chronic pain syndrome 07/24/2024 Telephone [facility] [address] [place] [address] Kathryn Jarquin MD Med Refill 07/22/2024 Orders Only GENERIC EXTERNAL DATA DEPARTMENT Provider, Generic External Data 06/25/2024 Refill [facility] [address] [place] [address] Kathryn Jarquin MD Upper back pain; Chronic pain of both knees; Chronic female pelvic pain; Chronic pain syndrome 06/21/2024 2:30 PM EDT Clinical Support [facility] [address] [place] [address] Rhonda Valdez RN Chronic pain of both knees (Primary Dx); emt intermediate (current) use of opiate analgesic; Long-term current use of opiate analgesic 06/21/2024 Telephone [facility] [address] [place] [address] Rhonda Valdez RN 06/21/2024 Travel 06/06/2024 Telephone [facility] [address] [place] [address] Kathryn Jarquin MD 05/29/2024 Refill [facility] [address] [place] [address] Kathryn Jarquin MD Upper back pain; Chronic pain of both knees; Chronic female pelvic pain; Chronic pain syndrome 05/28/2024 Refill [facility] [address] [place] [address] Kathryn Jarquin MD Upper back pain; Chronic pain of both knees; Chronic female pelvic pain; Chronic pain syndrome 05/25/2024 Travel 05/25/2024 Refill [facility] [address] [place] [address] Rhonda Valdez RN Upper back pain; Chronic [...] preservative free 03/29/2024 Moderna Covid-19 Vaccine 12+ 11/25/2021,07/05/19,06/06/2020 Pfizer Covid-19 Vaccine 12+ 05/02/2023 Pneumococcal Conjugate [...] Description 08/07/2024 9:15 AM EDT Office Visit [facility] [address] [place] [address] Kathryn Jarquin MD [address] [place] [address] 09/05/2024 2:15 PM EDT Clinical Support [facility] [address] [place] [address] Rhonda Valdez, DELFINA [address] [place] [address] Health Maintenance Due Date Last Done Comments [...] 024 11:43 AM EST) Denis Watkins, Swapnil Procedures Procedure Name Priority Date/Time Associated Diagnosis Comments MR KNEE WO CONTRAST RIGHT Routine 08/06/2024 3:[address] ABDOMEN PELVIS WO CONTRAST Routine 07/22/2024 4:22 PM EDT URINALYSIS WITH REFLEX MICROSCOPIC Routine 07/22/2024 2:35 PM EDT COMPREHENSIVE METABOLIC PANEL Routine 07/22/2024 2:34 PM EDT CBC WITH AUTO DIFFERENTIAL Routine 07/22/2024 2:34 PM EDT POCT FLORENCIA-14 URINE DRUG SCREEN Routine 06/21/2024 2:51 PM EDT correction (current) use of opiate analgesic Chronic pain of both knees LIPID PANEL WITH REFLEX TO DIRECT LDL Routine 03/29/2024 11:49 AM EST Type 2 diabetes mellitus with stage 3b chronic kidney disease, without long-term current use of insulin ([facility]) POCT GLYCOSYLATED HEMOGLOBIN (HGB A1C) Routine 03/29/2024 10:40 AM EST Type 2 diabetes mellitus with stage 3b chronic kidney disease, without long-term current use of insulin ([facility]) DIABETES EYE EXAM Routine 11/18/2023 MAMMOGRAPHY Routine 09/13/2022 COLONOSCOPY Routine 09/10/2022 2:43 PM EDT ZZZ HISTORICAL HEPATITIS C ANTIBODY RFLX Routine 04/18/2019 8:30 AM EST from Last 3 Months or Most Recently Relevant to Health Maintenance Results * MR Knee w/o Contrast Right (08/06/2024 3:04 PM EDT) Anatomical Region Laterality Modality Magnetic Resonan ce 08/06/2024 3:04 PM EDT Narrative 08/06/2024 3:56 PM EDT ? [facility] ?[address] ?[place] [address] ? Magnetic Resonance Report ? Signed ? Patient: Wen Moran ?MR#: [id number] ?? [id number] ? : 1955 ?Acct:[id number] ? Age/Sex: 69 / F ?ADM Date: 08/06/24 ? Loc: HO.MRI ? Attending Dr: Kailash Watkins MD ? Ordering Physician: Kailash Watkins MD ?? Date of Service: 08/06/24 ?? Procedure(s): MR knee RT wo con ?? Accession Number(s): [id number] ? cc: Kailash Watkins MD; Kathryn Jarquin MD ? EXAMINATION: ?? MR KNEE WITHOUT CONTRAST, RIGHT ? CLINICAL INFORMATION: ?? Other tear of medial meniscus, current injury, right knee. Right knee ?? pain and swelling. ? COMPARISON: ?? Right knee radiographs 03/29/2024. ? TECHNIQUE: ?? MRI of the right knee without contrast was performed using routine ?? sequences on a 1.5 Stephanie Siemens high-field scanner. ? FINDINGS: ? MENISCI: ? Medial Meniscus: Suspect subtle radial tearing of the free margin of ?? the body. Otherwise, the medial meniscus appears intact. ? Lateral Meniscus: Mildly increased signal noted in the posterior horn ?? near the root entry zone without definable tear, this is likely ?? intrasubstance degeneration (series 9, images 16-17). Remainder of the ?? meniscus appears intact and normal in signal. ? LIGAMENTS: ? Anterior Cruciate: Intact and normal in signal. ?? Posterior Cruciate: Intact and normal in signal. ? Medial Collateral: Intact and normal in signal. ? Lateral Collateral Complex: The biceps femoris tendon, conjoined ?? tendon, and popliteus tendon are all intact and normal in signal. There ?? is mild thickening and increased signal of the fibular collateral ?? ligament abutting the insertion on the lateral femoral condyle, most ?? likely sequela of old injury/degenerative. ? EXTENSOR MECHANISM: ?? Intact and normal in signal. No abnormal fat pad signal. ? PATELLAR RETINACULUM: ?? Intact and normal in signal. The medial patellofemoral ligament is ?? intact. ? BONE: ?? There is no gross bone marrow edema, subchondral bone plate edema, or ?? evidence of infiltrating abnormal bone marrow signal. ? JOINTS/CARTILAGE: ? Medial Compartment: Subtle chondrocalcinosis is present. Tiny marginal ?? spurs without loss of joint space. Weightbearing and nonweightbearing ?? cartilage is intact. No cartilage defects. ? Lateral Compartment: Subtle chondrocalcinosis is present. Tiny marginal ?? spurs without loss of joint space. Weightbearing and nonweightbearing ?? cartilage is intact. No cartilage defects. ? Patellofemoral Compartment: Minimal degenerative arthritis present ?? without cartilaginous defect. Tiny marginal spurs. Normal alignment of ?? the patella within the trochlea. ? JOINT FLUID AND BURSAE: ?? There is a small joint effusion present. ?? There is fluid within the prepatellar bursa suggestive of prepatellar ?? bursitis. ? OTHER: ?? There is a tiny amount of fluid in the medial popliteal fossa. ?? Popliteal fossa otherwise normal. ?? The imaged musculature is normal in signal. ? MR/MR knee RT wo con ?? IMPRESSION: ?? 1. Suspect subtle radial tearing of the body of the medial meniscus. ?? 2. Increased signal within the posterior horn of the lateral meniscus, ?? not definitively extending to the joint surface to define a tear. This ?? is likely intrasubstance degeneration. ?? 3. Mild thickening of the fibular collateral ligament abutting the ?? insertion on the lateral femoral condyle, likely reflective of old ?? injury or degenerative. ?? 4. Subtle chondrocalcinosis in the medial and lateral compartments ?? without full-thickness cartilaginous defects. 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 ?? 5. Small joint effusion. ?? 6. Suspect prepatellar bursitis. ?? 7. There is a tiny Weller cyst in the medial popliteal fossa. ? Electronically signed by: ??Lazaro Mitchell MD ??08/06/2024 03:53 PM EDT RP ? Dictated By: ?Lazaro Mitchell MD ? Signed By: ?<Electronically signed by Lazaro Mitchell MD in OV> ?08/06/24 1553 ? DD/ 1504 ? TD/TT: 08/06/24 1513 ? German Instructor: ? Procedure Note Donotuseinterpreter, Image - 08/06/2024 [place] [id number] Magnetic Resonance Report Signed Patient: Devin Moran#: [id number] : 1955cct:[id number] Age/Sex: 69 / FADM Date: 08/06/24 Loc: HO.MRI Attending Dr: Kailash Watkins MD Ordering Physician: Kailash Watkins MD Date of Service: 08/06/24 Procedure(s): MR knee RT wo con Accession Number(s): [id number] cc: Kailash Watkins MD; Kathryn Jarquin MD EXAMINATION: MR KNEE WITHOUT CONTRAST, RIGHT CLINICAL INFORMATION: Other tear of medial meniscus, current injury, right knee. Right knee pain and swelling. COMPARISON: Right knee radiographs 03/29/2024. TECHNIQUE: MRI of the right knee without contrast was performed using routine sequences on a 1.5 Stephanie Siemens high-field scanner. FINDINGS: MENISCI: Medial Meniscus: Suspect subtle radial tearing of the free margin of the body. Otherwise, the medial meniscus appears intact. Lateral Meniscus: Mildly increased signal noted in the posterior horn near the root entry zone without definable tear, this is likely intrasubstance degeneration (series 9, images 16-17). Remainder of the meniscus appears intact and normal in signal. LIGAMENTS: Anterior Cruciate: Intact and normal in signal. Posterior Cruciate: Intact and normal in signal. Medial Collateral: Intact and normal in signal. Lateral Collateral Complex: The biceps femoris tendon, conjoined tendon, and popliteus tendon are all intact and normal in signal. There is mild thickening and increased signal of the fibular collateral ligament abutting the insertion on the lateral femoral condyle, most likely sequela of old injury/degenerative. EXTENSOR MECHANISM: Intact and normal in signal. No abnormal fat pad signal. PATELLAR RETINACULUM: Intact and normal in signal. The medial patellofemoral ligament is intact. BONE: There is no gross bone marrow edema, subchondral bone plate edema, or evidence of infiltrating abnormal bone marrow signal. JOINTS/CARTILAGE: Medial Compartment: Subtle chondrocalcinosis is present. Tiny marginal spurs without loss of joint space. Weightbearing and nonweightbearing cartilage is intact. No cartilage defects. Lateral Compartment: Subtle chondrocalcinosis is present. Tiny marginal spurs without loss of joint space. Weightbearing and nonweightbearing cartilage is intact. No cartilage defects. Patellofemoral Compartment: Minimal degenerative arthritis present without cartilaginous defect. Tiny marginal spurs. Normal alignment of the patella within the trochlea. JOINT FLUID AND BURSAE: There is a small joint effusion present. There is fluid within the prepatellar bursa suggestive of prepatellar bursitis. OTHER: There is a tiny amount of fluid in the medial popliteal fossa. Popliteal fossa otherwise normal. The imaged musculature is normal in signal. MR/MR knee RT wo con IMPRESSION: 1. Suspect subtle radial tearing of the body of the medial meniscus. 2. Increased signal within the posterior horn of the lateral meniscus, not definitively extending to the joint surface to define a tear. This is likely intrasubstance degeneration. 3. Mild thickening of the fibular collateral ligament abutting the insertion on the lateral femoral condyle, likely reflective of old injury or degenerative. 4. Subtle chondrocalcinosis in the medial and lateral compartments without full-thickness cartilaginous defects. Mild tricompartmental osteoarthritis, most significant patellofemoral compartment. 5. Small joint effusion. 6. Suspect prepatellar bursitis. 7. There is a tiny Weller cyst in the medial popliteal fossa. Electronically signed by: Lazaro Mitchell MD 08/06/2024 03:53 PM EDT Dictated By: Lazaro Mitchell MD Signed By: <Electronically signed by Lazaro Mitchell MD in OV> 08/06/24 1553 DD/ 1504 TD/TT: 08/06/24 1513 German Instructor: [facility] External Provider IMG MRI PROCEDURES Final Result * CT Abdomen Pelvis w/o Contrast (07/22/2024 4:22 PM EDT) Anatomical Region Laterality Modality Body, Pelvis, Abdomen Computed T omography 07/22/2024 4:22 PM EDT Narrative 07/22/2024 4:23 PM EDT ? [facility] ?[address] ?[place] [address] ? CT Scan Report ? Signed ? Patient: Dean,Wen ?MR#: [id number] ?? 5803 ? : 1955 ?Acct:[id number] ? Age/Sex: 69 / F ?ADM Date: 07/22/24 ? Loc: HO.ED ? Attending Dr: ? Ordering Physician: Arabella Clifton ?? Date of Service: 07/22/24 ?? Procedure(s): CT abdomen pelvis wo IV con ?? Accession Number(s): [id number] ? cc: Arabella Clifton; Kathryn Jarquin MD ? Report Number: ?? [id number]: Total DLP = ??743.00 mGy-cm ? CLINICAL HISTORY: lower abd pain ? CT abdomen and pelvis without contrast ? Comparison: CT/CA/SR - CT ABDOMEN PELVIS WO IV CON [...] DD/ 1622 ? TD/TT: 07/22/24 1622 ? German Instructor: ? Procedure Note Donotuseinterpreter, Image - 07/22/[address] [place] [id number] [address] Scan Report Signed Patient: Devin Moran#: [id number] : 7Acct:[id number] Age/Sex: 69 / FADM Date: 07/22/24 Loc: HO.ED Attending Dr: Ordering Physician: Arabella Clifton Date of Service: 07/22/24 Procedure(s): CT abdomen pelvis wo IV con Accession Number(s): [id number] cc: Arabella Clifton; Kathryn Jarquin MD Report Number: [id number]: Total DLP = 743.00 mGy-cm CLINICAL HISTORY: lower abd pain CT abdomen and pelvis without contrast Comparison: CT/CA/SR - CT ABDOMEN PELVIS WO IV CON [...] by Zulay Diaz MD in OV> 07/22/24 162 DD/ 1622 TD/TT: 07/22/24 162 German Instructor: [facility] External Provider IMG CT PROCEDURES Final Result * (ABNORMAL) Urinalysis w/reflex microscopic (07/22/2024 2:35 PM EDT) Color Urine Yellow [facility] Appearance Urine Clear [facility] PH 5.5 5.0 - 9.0 [facility] Glucose Urine UA 500(A) Negative mg/dL [facility] Urine Blood Negative Negative [facility] Specific [place] - Urine 1.020 1.005 - 1.025 [facility] Urine Protein Negative Neg-Trace mg/dL [facility] Urine Ketones Negative Negative mg/dL [facility] Nitrite Urine Negative Negative [facility] Leukocyte Esterase Urine Negative Negative [facility] 07/22/2024 2:35 PM EDT 07/22/2024 2:37 PM EDT Narrative [facility] - 07/22/2024 2:48 PM EDT Urine, Clean Catch Generic External Data Provider LAB URINE ORDERAB LES Final Result [facility] [address] [place] [phone] * CBC auto differential (07/22/2024 2:34 PM EDT) White Blood Count 10.5 4.8 - 10.8 X10*3/uL [facility] Red Blood Count 4.76 4.20 - 5.50 X10*6/uL [facility] Hemoglobin 13.1 12.0 - 16.0 g/dl [facility] Hematocrit 40.6 37.0 - 47.0 % [facility] Mean Corpuscular Volume 85.3 80.0 - 98.0 fL [facility] Mean Corpuscular Hemoglobin 27.5 27.0 - 33.0 pg [facility] Mean Corpuscular HGB Conc 32.3 31.0 - 35.0 g/dl [facility] Red Cell Distribution Width 15.1 11.0 - 16.0 % [facility] Platelet Count 211 160 - 400 X10*3/uL [facility] Mean Platelet Volume 10.7 9.4 - 12.3 fL [facility] Neutrophils Percent Auto 63.9 45 - 73 % [facility] Imm Gran Pct Auto 0.3 0.0 - 0.4 % [facility] Lymphocytes Percent Auto 28.6 20 - 40 % [facility] Monocytes Percent Auto 5.4 2 - 11 % [facility] Eosinophils Percent Auto 1.4 0 - 4 % [facility] Basophils Percent Auto 0.4 0 - 2 % [facility] NRBC Pct Auto 0.0 0.0 - 0.2 /100WBC [facility] Neutrophils Absolute Auto 6.7 2.0 - 8.3 x10*3/uL [facility] Imm Gran Abs Auto 0.03 0.00 - 0.03 X10*3/uL [facility] Lymphocytes Absolute Auto 3.0 1.2 - 4.9 X10*3/uL [facility] Monocytes Absolute Auto 0.6 0.1 - 1.2 X10*3/uL [facility] Eosinophils Absolute Auto 0.2 0.0 - 0.4 X10*3/uL [facility] Basophils Absolute Auto 0.0 0.0 - 0.2 X10*3/uL [facility] NRBC Abs Auto 0.000 0.0 - 0.012 X10*3/uL [facility] 07/22/2024 2:34 PM EDT 07/22/2024 2:37 PM EDT us Generic External Data Provider LAB BLOOD ORDERAB LES Final Result [facility] [address] [place] [phone] [phone] * (ABNORMAL) Comprehensive Metabolic Panel (07/22/2024 2:34 PM EDT) Sodium 139 135 - 145 mmol/L [facility] Potassium 4.4 3.3 - 5.1 mmol/L [facility] Chloride 102 96 - 108 mmol/L [facility] Carbon Dioxide 25 22 - 29 mmol/L [facility] Anion Gap 16 12 - 20 [facility] Urea Nitrogen (BUN) 26(H) 9 - 16 mg/dL [facility] Creatinine, Serum 1.49(H) 0.5 - 1.4 mg/dL [facility] Creatinine Clr Calc Pharmacy 32.1 [facility] Comment:Provided height and weight: 149.86 cm,76.1 kg.eGFR (calculated from the MDRD study equation) and eCrCl(calculated from the Cockcroft-Gault equation) are based ondifferent parameters and may not yield comparable results.If eCrCl result is absurd, please check patient'sheight/weight. Estimated Glomerular Filt Rate 35 [facility] Comment:Chronic Kidney Disea se: Estimated GFR < 60 mL/min/1.44x6Sgrcho Kidney Disease: Estimated GFR < 15 mL/min/1.73m2 Glucose 287(H) 60 - 115 mg/dL [facility] Calcium 9.9 8.4 - 10.2 mg/dL [facility] Bilirubin, Total 0.2 0.0 - 1.0 mg/dL [facility] Aspartate Amino Transferase 25 5 - 31 U/L [facility] Alanine Aminotransferase 16 0 - 31 U/L [facility] Total Protein 7.5 6.5 - 8.0 g/dL [facility] Albumin Level 4.1 3.5 - 5.0 g/dL [facility] Alkaline Phosphatase 125(H) 39 - 117 U/L [facility] 07/22/2024 2:34 PM EDT 07/22/2024 2:37 PM EDT us Generic External Data Provider LAB BLOOD ORDERAB LES Final Result [facility] [address] [place] [phone] * POCT FLORENCIA-14 Urine Drug Screen (06/21/2024 2:51 PM EDT) Oxycodone Screen, Urine Positive Urine Urine specimen obtained by clean catch procedure / Unknown 06/21/2024 2:51 PM EDT Narrative Rhonda Valdez RN - 06/21/2024 2:51 PM EDT Lot# [id number] Exp: 11-21-25 us Kathryn Jarquin MD POINT OF CARE TEST ENTER/EDIT OR DERABLES Final Result * (ABNORMAL) Lipid Panel with Reflex to Direct LDL (03/29/2024 11:49 AM EST) Triglycerides 232(H) <150 mg/dL [facility] Comment:Desirable Triglyceri de: less than 150 mg/dLBorderline High Triglyceride 150-199 mg/dLHigh Triglyceride: 200-499 mg/dLVery High Triglyceride: greater than or equal to 5OO mg/dL Cholesterol 253(H) <200 mg/dL [facility] Comment:Desirable Cholestero l: less than 200 mg/dLBorderline High Cholesterol: 200-239 mg/dLHigh Cholesterol: greater than 239 mg/dL LDL Cholesterol Calculated 148(H) <100 mg/dL [facility] Comment:Desirable LDL: less than 100 mg/dLNear Optimal/Above Optimal LDL: 110- 129 mg/dLBorderline High LDL: 130-159 mg/dLHigh LDL: 160-189 mg/dLVery High LDL: greater than or equal to 190 mg/dL HDL Cholesterol 59 >40 mg/dL [facility] Comment:Desirable HDL: great er than 40 mg/dL Note: This HDL assay may give artificially low results in patients with liver disease. Blood 03/29/2024 11:4 9 AM EST 03/29/2024 1:10 PM EST Kathryn Jarquin MD LAB BLOOD ORDERABLES Final Resul t [facility] [address] [place] [phone] * (ABNORMAL) POCT glycosylated hemoglobin (Hgb [...] 11/18/2023 Historical Provider HEALTH MAINTENANCE Final Result * Mammography (09/13/2022) Pathologist [facility] Mammogram bi-rads Anatomical Region Laterality Modality Other [facility] Unassigned Pcp HEALTH MAINTENANCE Final Result * HEPATITIS C ANTIBODY RFLX (04/18/2019 8:30 AM EST) Pathologist [facility] HEPATITIS C ANTIBODY NONREACTIVE NONREACTIVE [facility] Comment: Antibodies to HCV not detected; does not exclude early acute HCV infection. 04/18/2019 8:3 0 AM EST Kathryn Jarquin MD HISTORICAL/NON ORDERABLE LABS Fi nal Result Performing Organization Address City/[facility]/ZIP Co de Phone Number [facility] [address] [place] [address], from Last 3 Months or Most Recently Relevant to Health Maintenance Insurance [facility] OPTIONS (HMO D-SNP) [place] [id number] [facility] Care Teams Skate Shop Attendant Relationship Specialty Start Date End Date Kathryn Jarquin MD [address] [place] [address] PCP - General Family Medicine 04/04/18 Denis Rodgers, PharmD [address] [place] [phone] Pharmacist Internal Medicine 10/22/22
--- OUTSIDE RECORDS SUMMARY | 2024-08-06 16:13 | XMS_ITS | Clinical Summary ---
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 Name Role Phone Kathryn Jarquin MD Primary Care Provider [phone] Allergies No known active allergies Active Problems [...] Last Assessment & Plan: -follow up with hand touch up painter -avoid nephrotoxic drugs -adjust medication: metformin ER [...] patient's age to complete this topic Insurance [facility] Dual SNP ([id number]) [place] [id number] [employer] [place] [id number] Care Teams 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
== END 2024-08-06 14:38 | disposition home or self-care (01) ==
LOC: HO.MRI 14:37
PROVIDERS: PCP Family Medicine; Visit Provider Orthopaedic Surgery
DX: S83.241A Other tear of medial meniscus, current injury, right knee, initial encounter (principal)
CPT/HCPCS: 73721

== ENCOUNTER → 2024-08-06 14:51 | Outpatient (BNV) | payer OTHER, SELFPAY | PROVIDERS: PCP Family Medicine; Visit Provider Radiology Diagnostic Radiology | DX: S83.241A Other tear of medial meniscus, current injury, right knee, initial encounter (principal) | CPT/HCPCS: 73721 ==

== ENCOUNTER 2024-08-20 09:04 | Outpatient (AMB) | payer OTHER, SELFPAY ==
--- NOTE | 2024-08-20 09:08 | MHC.OFFVIS ---
Vital Signs 08/20/24 09:10 Height 4 ft 11 in Weight 159 lb BMI 32.1 BP 128/65 Blood Pressure Location Lt brachial Position Sitting Respiration 16 Pulse 91 Pulse Source Pulse Oximeter Pulse Oximetry (%) 94 Oxygen Delivery Method Room Air Intake Visit Reasons: Low back pain, unspecified Duplicator Punch Operator Required: Yes Duplicator Punch Operator Services: Duplicator Punch Operator Present Duplicator Punch Operator Name: [id number] Doug Allergies No Known Allergies [NO KNOWN ALLERGIES] Allergy (Unknown, Verified 08/20/24 09:14) UNKNOWN Medication List - Last Reconciled 08/20/24 by Kavita Martino LPN acetaminophen (Tylenol Extra Strength) 500 mg PO Q6H PRN amlodipine 5 mg PO DAILY aripiprazole 2 mg PO DAILY aspirin (Adult Aspirin Regimen) 81 mg PO DAILY atorvastatin 80 mg PO DAILY chlorthalidone 50 mg PO DAILY cholecalciferol (vitamin D3) (Vitamin D3) 25 mcg PO QAM clonazepam 2 mg PO DAILY clonidine HCl 0.1 mg PO BID conjugated estrogens (Premarin) 0 mg vaginal cyclobenzaprine 5 mg PO Q8H PRN 5 days dicyclomine 20 mg PO TID docusate sodium (Colace) 100 mg PO DAILY 30 days fluoxetine 60 mg PO QAM fluticasone propionate 220 mcg/actuation (Flovent HFA) 220 mcg inhalation ONCE glipizide 5 mg PO BID hydralazine 25 mg PO DAILY levothyroxine 50 mcg PO QAM linaclotide (Linzess) 290 mcg PO QAM 30 days magnesium oxide 400 mg PO DAILY methylcellulose (with sugar) (Citrucel (sucrose) oral powder) 1 tbsp PO BID mirtazapine 45 mg PO BEDTIME omeprazole 40 mg PO DAILY oxybutynin chloride ER 5 mg PO DAILY prazosin 1 mg PO BEDTIME quetiapine ER 200 mg PO DAILY sennosides (senna) 17.2 mg PO DAILY simethicone (Gas Relief (simethicone)) 180 mg PO BID 30 days HPI HPI Low back pain, unspecified: Details: History of Present Illness The patient is a 69-year-old female presenting with chronic back pain. Her pain is concentrated in the lower back but occasionally extends to the neck area. The symptoms include a variable intensity of pain, affecting her ability to engage in activities like physical therapy. Previously reported abdominal pain has resolved since her last visit. Medications used include Tylenol, cyclobenzaprine, clonidine, and aspirin, with limited relief. Movements, such as forward and backward bending, significantly exacerbate the pain. Imaging has demonstrated lumbar spondylosis and slight scoliosis, contributing to her symptoms. Proposed interventions include diagnostic test injections to pinpoint the pain's origin, which may lead to further treatments like radiofrequency ablation if initial relief is achieved. Pain Description - Onset: Chronic - Location: Lower back, with occasional neck involvement - Quality: Strong pain, variable intensity - Exacerbating factors: Bending forward and backward - Alleviating factors: Currently, none reported effective - Treatments tried: Tylenol, cyclobenzaprine, clonidine, aspirin - Activities affected: Physical therapy, difficulty in movement due to pain Physical Exam - Musculoskeletal- Pain reproduced on lumbar extension and forward flexion; worst pain localized to the lower back Results - Imaging: CT of the abdomen and pelvis shows slight rightward scoliosis and multilevel lumbar spondylosis, with indications of Bertolotti's syndrome Pain Management - Affect: Pain impacts ability to perform physical therapy, causing significant discomfort - Analgesia: Currently using Tylenol, cyclobenzaprine, clonidine, and aspirin; pain remains strong at times - Adverse Effects: No specific adverse effects of medications noted - Activities of Daily Living: Pain inhibits participation in physical therapy and causes difficulty in movement - Aberrant Drug Related Behaviors: None reported PFSH Medical History Dysuria Chronic kidney disease Diabetes 1.5, managed as type 2 HTN (hypertension) KIRSTIE (stress urinary incontinence, female) Urge incontinence Chronic idiopathic constipation GERD (gastroesophageal reflux disease) Irritable bowel syndrome with constipation Surgical History H/O tubal ligation Hx of section H/O: hysterectomy History of esophagogastroduodenoscopy (EGD) Hx of colonoscopy Family History Father Family hx of prostate cancer Cancer Brother Cancer Mother HTN (hypertension) Maternal Aunt Skin cancer, Onset Age: 59 Social History Household Members: None Alcohol intake: never Patient Tobacco Use Status: Never used Tobacco Current occupational status: disabled Female Reproductive History Menstrual Age of Menarche: 12 Physical Exam Vital Signs: Last Vital Signs Pulse 91 08/20/24 09:10 Resp 16 08/20/24 09:10 BP 128/65 08/20/24 09:10 Pulse Ox 94 08/20/24 09:10 Oxygen Delivery Method Room Air 08/20/24 09:10 BMI result Body Mass Index 32.1 Assessment & Plan Assessment & Plan (1) Lumbar spondylosis: Code(s): M47.816 - Spondylosis without myelopathy or radiculopathy, lumbar region Category: Medical Plan Plan - Diagnostic bilateral L3, L4, L5 MBBs to identify pain origin, pending insurance approval, for axial LBP; unable to participate in PT due to pain. - Discuss radiofrequency ablation as a potential long-term treatment if test injections are successful. - Continue current pain management regimen pending further intervention outcomes. Patient was informed and verbally consented to the use of an ambient scribe for clinic note documentation during this visit. Discussion Notes I discussed with the patient the ongoing management of her chronic back pain, notably allocating for test injections to ascertain the precise location of her pain, understanding the insurance requirements therein. These test injections, not providing lasting relief but diagnostic utility, were explained clearly, and the patient consented to proceed. If successful, the option of radiofrequency ablation was reviewed as a further step. I emphasized the existence of scoliosis and lumbar spondylosis, correlating with her symptoms, suggesting the conservative measure until diagnostic outcomes were available. I assured follow-up communication regarding scheduling and further procedural steps upon insurance approval. Patient Instructions - Await a call regarding the scheduling of test injections - Continue taking current medication regime - Avoid physical activity that exacerbates pain - Seek assistance if experiencing unmanageable pain or new symptoms Coding Level of Care Code New Pt Level 4 (08699) Diagnoses Lumbar spondylosis M47.816
[2024-08-20 09:10] VITALS: BP 128/65; PULSE 91; RESP 16; O2SAT 94; BMI 32.1
--- OUTSIDE RECORDS SUMMARY | 2024-08-20 09:18 | XMS_ITS | Encounter Summary ---
Author Organization [employer] Address [address] [facility] [address] [place] [address] Care Team Providers Care Lime Hide Inspector Name Role Phone Kathryn Jarquin MD Primary Care Provider [phone] Denis Rodgers PharmD Unavailable [phone] Reason for Visit * Reason Comments Med Refill Encounter Details Date Type Department Care Team (Late st Contact Info) Description 05/29/2024 Refill [facility] [address] [place] [address] Kathryn Jarquin MD [address] [place] [address] Upper back pain; Chronic pain of both [...] Care Team (Late st Contact Info) Description 08/29/2024 2:00 PM EDT Medication Management [facility] [address] [place] [address] Denis Rodgers, PharmD [address] [place] [address] 09/05/2024 2:15 PM EDT Clinical Support [facility] [address] [place] [address] Rhonda Valdez, RN [address] [place] [address] documented as of this encounter Goals Goal Patient Goal Type Associated Problems Recent Progress Patient-Stated? Author Blood Pressure < 140/90 Blood Pressure 132/78( 025 9:13 AM EDT) No Denis Rodgers, PharmD documented as of this encounter Visit Diagnoses Diagnosis Upper back pain Unspecified backache Chronic pain of both knees Chronic female pelvic pain Unspecified symptom associated with female genital organs Chronic pain syndrome documented in this encounter Additional Health Concerns Assessment Noted Time PHQ-9 Depression Total Score: 12 024 10:26 AM EST documented as of this encounter Care Teams Lime Hide Inspector Relationship Specialty Start Date End Date Kathryn Jarquin MD [address] [place] [address] PCP - General Family Medicine 04/04/18 Denis Rodgers, PharmD [address] [place] [phone] Pharmacist Internal Medicine 10/22/22 documented as of this encounter
--- OUTSIDE RECORDS SUMMARY | 2024-08-20 09:18 | XMS_ITS | Clinical Summary ---
Author Organization [employer] Address [address] [facility] [facility] [address] [place] [address] Care Team Providers Care Cyberathlete Name Role Phone Kathryn Jarquin MD Primary Care Provider [phone] Denis Rodgers PharmD Unavailable [phone] Allergies No known active allergies Medications * [...] TAKE 1 CAPSULE ORALLY DAILY 023 Active Simethicone Ultra Strength 180 MG capsule TOME 1 C PSULA ORALLY 2 TIMES A DAY FOR 30 DAYS Active magnesium oxide (Mag-Ox) 400 (240 Mg) MG tabletIndicatio ns:Hypomagnesem ia TAKE 1 TABLET BY MOUTH EVERY MORNING 30 tablet 1 Active Premarin 0.625 MG/GM creamIndication s:Subacute and chronic vaginitis INSERT 1 APPLICATORFUL VAGINALLY ONCE DAILY AT BEDTIME FOR 2 WEEKS, THEN USE 1 APPLICATORFUL TWICE WEEKLY 30 g 3 023 Active Bisacodyl EC 5 MG EC tablet TAKE 2 TABLETS BY MOUTH EVERY DAY AT BEDTIME Active docusate sodium (Colace) 100 MG capsule Take 1 capsule by mouth once daily Active Reguloid 28.3 % powder DISSOLVE 1 TABLESPOONFUL IN 8 OUNCES OF LIQUID AND DRINK TWICE DAILY DIRECTED Active albuterol (2.5 MG/3ML) 0.083% nebulizer solution INHALE 1 AMPULE USING A NEBULIZER EVERY 6 HOURS NEEDED FOR SHORTNESS OF BREATH 90 mL 1 Active hydrOXYzine pamoate (Vistaril) 25 MG capsule Take 1 capsule (25 mg) by mouth every 6 (six) hours if needed for anxiety for up to 10 days. 30 capsule Active sodium bicarbonate 650 MG tablet Take 650 mg by mouth. Active amLODIPine (Norvasc) 5 MG tablet Take 1 tablet (5 mg) by mouth Once per day. 90 tablet 3 024 Active glipiZIDE (Glucotrol) 5 MG tablet TAKE 1 TABLET BY MOUTH TWICE DAILY IN THE MORNING AND IN THE EVENING BEFORE MEALS 180 tablet 3 Active atorvastatin (Lipitor) 80 MG tablet TAKE 1 TABLET BY MOUTH AT BEDTIME 90 tablet 3 Active Aspirin EC Adult Low Dose 81 [...] BY MOUTH EVERY MORNING 90 tablet 2 025 Active D3-1000 25 MCG (1000 UT) capsule [...] for severe pain. 28 tablet 025 Active Tirzepatide (Mounjaro) 2.5 MG/0.5ML solution auto-injectorIn dications:Type 2 diabetes mellitus with stage 3b chronic kidney disease, without long-term current use of insulin ([facility]) Inject 2.5 mg under the skin 1 (one) time per week. 2 mL 11 025 Active QUEtiapine XR (SEROquel XR) 200 MG 24 hr tablet Take 200 mg by mouth at bedtime. 025 Active QUEtiapine XR (SEROquel XR) 150 MG 24 hr tablet TAKE 1 TABLET BY MOUTH AT BEDTIME 023 2024 Discontinued(M ed list cleanup (will not trigger notification to Pharmacy)) oxyCODONE [...] dysfunction-associated steatohepatitis (MASH) 01/07/2023 Assessment & Plan (08/07/2024 9:08 AM EDT): - [place] [facility] - Work on achieving healthy weight and diet Assessment & Plan (04/05/2024 5:43 AM EST): - followed by [facility] - Work on achieving healthy weight and diet Assessment & Plan (05/08/2023 12:06 PM EST): - followed by [facility] - Work on achieving healthy weight and diet Knee pain 01/07/2023 Assessment & Plan (08/12/2024 6:43 AM EDT): - following with [facility] - MRI on 08/26/24: subtle radial tearing of medial meniscus; degeneration of lateral meniscus; mild thickening of fibular collateral ligament on the lateral femoral condyle; subtle chondrocalcinosis in medial and lateral compartments; mild tricompartmental osteoarthritis; prepatellar bursitis - evaluated by orthopedist; suggested that the pain is due to back issue and referred to pain management Assessment & Plan (04/05/2024 5:49 AM EST): - evaluate with X-ray - achieve healthy weight - improve physically activity Hypomagnesemia 01/07/2023 History of renal calculi 01/07/2023 Chronic idiopathic constipation 01/07/2023 Assessment & Plan (08/07/2024 9:08 AM EDT): - Takes suppositories to help her bowel movements - Patient currently denies symptom and states oxycodone does not affect her BM Assessment & Plan (04/05/2024 5:46 AM EST): - Takes suppositories to help her bowel movements - Patient currently denies symptom and states oxycodone does not affect her BM Assessment & Plan (05/08/2023 12:02 PM EST): - colonoscopy on 04/15/23 - fiber-rich diet Right hip pain 12/02/2022 Assessment & Plan (08/12/2024 6:39 AM EDT): - following with ortho and pain management - judicious use of oxycodone Abdominal pain, lower 08/09/2022 Assessment & Plan (08/12/2024 6:33 AM EDT): - taking oxycodone under CORN CUTTER OPERATOR agreement since Mar 2024 - evaluated by customer orders clerk and given reassurance for no gynecological abnormality - upcoming appointment with GI and pain management - continue current behavioral health service Assessment & Plan (04/05/2024 5:40 AM EST): - Takes non-prescribed oxycodone to try and relieve the pain and help her sleep - Will start at low dose oxycodone only one at bedtime; discussed about its judicious use and the importance of attending [employer]N CUTTER OPERATOR appt Assessment & Plan (10/30/2022 4:06 PM EDT): - seen by urogynecologist, customer orders clerk, general surgeon, and GI - Will check [...] (08/12/2022 4:18 PM EDT): - seen by customer orders clerk, general surgeon, and GI - Will check [...] last seen in 2020 - seen by [facility] in August 2022, upcoming follow-up appt - check UA/ UCx - hold restarting oxybutynin due to current urinary retention Assessment & Plan (10/30/2022 4:09 PM EDT): - Hx OAB, on oxybutynin, previously following with Dr. Peñaloza, last seen in 2020 - seen by [facility] in August 2022, upcoming follow-up appt [...] UTI today. Hypothyroidism 06/03/2022 Assessment & Plan (08/12/2024 6:47 AM EDT): -Negative thyroid peroxidase antibody -Current replacement: levothyroxine 75 mcg daily -Last TSH was therapeutic in Mar 2024 Assessment & Plan (04/05/2024 5:53 AM EST): [...] chronic kidney disease 06/03/2022 Assessment & Plan (08/12/2024 6:38 AM EDT): -following with combo welder, last seen in May 2024 -avoid nephrotoxic drugs -no longer on metformin or ACEI/ARB -consider SGLT2i Assessment & Plan (04/05/2024 5:47 AM EST): -following with combo welder, last seen in Nov 2023 -avoid nephrotoxic drugs -no longer on metformin -consider SGLT2i Assessment & Plan (05/08/2023 12:00 PM EST): -following with combo welder -avoid nephrotoxic drugs -no longer on metformin -clarify with GI whether patient needs to be on PPI Assessment & Plan (10/30/2022 4:11 PM EDT): -follow up with combo welder -avoid nephrotoxic drugs -adjust medication: metformin ER to 500 mg bid - lab review: 08/10/22 K 4.6; BUN 28; Scr 1.0 ; eGFR 56; Bicarb 28 Assessment & Plan (08/09/2022 11:50 AM EDT): -follow up with combo welder -avoid nephrotoxic drugs -adjust medication: metformin ER to 500 mg bid Assessment & Plan (06/03/2022 2:31 AM EST): -refer to combo welder -avoid nephrotoxic drugs -adjust medication: metformin ER [...] pain in female 09/13/2016 Assessment & Plan (08/12/2024 6:31 AM EDT): -Started [employer]N CUTTER OPERATOR with oxycodone 5 mg at night since Mar 2024 -Last CORN CUTTER OPERATOR visit on 08/01/24, pill count suggested misuse. Reviewed our agreement today. Patient requested an increase in its dose. PCP encouraged patient to try other modalities since patient is going to see pain management. -Discussed about increased risk of side effect with concurrent use of BZD; patient verbalized understanding -Patient states she is not constipated. Assessment & Plan (04/05/2024 5:39 AM EST): -She threatens that she would louis PCP for not treating her pain -She is already taking oxycodone from the street -She states she understand the side effect of medication -Her stories seem to be inconsistent, but it may be due to her low health literacy and cognitive level -Agreed to start oxycodone under close monitoring with CORN CUTTER OPERATOR program; patient verbalized understanding -Discussed about increased [...] (gastroesophageal reflux disease) 5 Assessment & Plan (08/07/2024 9:07 AM EDT): - followed by [facility] - check whether patient needs to be on PPI or can be changed to H2-hao as recommended by combo welder Assessment & Plan (05/08/2023 12:02 PM EST): - followed by [facility] - check whether patient needs to be on PPI or can be changed to H2-hao as recommended by combo welder Generalized anxiety disorder with panic attacks 01/23/2015 Assessment & Plan (04/05/2024 5:54 AM EST): -tremor, patient is able to stop tremor voluntarily -check TSH Assessment & Plan (06/03/2022 2:23 AM EST): -tremor -check TSH Irritable bowel syndrome 01/23/2015 Assessment & Plan (08/07/2024 9:07 AM EDT): GI: [facility] last visit in Apr 2023 Current medication: Linzess 290 mg daily Normal EGD and colonoscopy in [facility] in Jan 2013. Colonoscopy in Apr 2023 by [facility], hyperplastic polyp. Repeat in 5 years. Assessment & Plan (04/05/2024 5:45 AM EST): GI: [facility], last visit in Apr 2023 Current medication: Linzess 290 mg daily Normal EGD and colonoscopy in [facility] in Jan 2013. Colonoscopy in Apr 2023 by [facility], hyperplastic polyp. Repeat in 5 years. Assessment & Plan (10/30/2022 4:20 PM EDT): GI: [facility] last visit in 08/04/22 Current medication: Linzess 290 mg daily Normal EGD and colonoscopy in [facility] in Jan 2013. Anticipating another colonoscopy soon Assessment & Plan (08/12/2022 4:19 PM EDT): GI: [facility] last visit in 08/04/22 Current medication: Linzess 290 mg daily Normal EGD and colonoscopy in [facility] in Jan 2013. Anticipating another colonoscopy soon Assessment & Plan (06/03/2022 2:15 AM EST): GI: [facility], last visit in 08/11/21 Current medication: Linzess 290 mg daily Normal EGD and colonoscopy in [facility] in Jan 2013. Pt has to reschedule colonoscopy with GI Specialist Encouraged medication compliance Pt seems to have changed GI; will confirm Recurrent major depression 01/23/2015 Assessment & Plan (04/05/2024 5:54 AM EST): -[facility] provider: [facility] -Continue current medications: clonazepam; fluoxetine; prazosin; clonidine; quetiapine Assessment & Plan (05/08/2023 12:22 PM EST): -[facility] provider: [facility] -Continue current medications: clonazepam; fluoxetine; prazosin; clonidine; quetiapine Assessment & Plan (10/30/2022 4:18 PM EDT): -[facility] provider: [facility] -Continue current medications: clonazepam; fluoxetine; prazosin; clonidine; quetiapine Assessment & Plan (06/03/2022 2:22 AM EST): -[facility] provider: [facility] -Continue current medications: clonazepam; fluoxetine; prazosin; clonidine; quetiapine Asthma 01/23/2015 Assessment & Plan (08/07/2024 9:06 AM EDT): -pt is using albuterol -consider LABA/ICS prn [...] cessation HTN (hypertension) 01/20/2015 Assessment & Plan (08/12/2024 6:36 AM EDT): -Goal BP < 140/90 per JNC-8, < 130/80 per ACC/AHA guideline. Fluctuating BP (hypertensive previously, lately hypotensive resulting renal hypoperfusion) - BP slightly elevated today, but recently hypotensive and home BP normal per patient. - Comanaged with Denis Rodgers RPh through CD[facility] and combo welder -Work on lifestyle modifications, DASH diet and increase physical activity -continue amlodipine 5 mg daily -continue chlorthalidone 25 mg daily -continue Hydralazine 25 mg BID (combo welder seems to be unaware of medication, will consider simplifying medication) -continue prazosin and clonidine, which are prescribed by psychiatrist, with caution -consider retial of ALEXIA inhibitors, either ACEI or ARB. -Tx Hx: Discontinued Amlodipine 5 mg daily, pt unable to tolerate side effects of leg swelling, yet restarted when lisinopril was discontinued. Assessment & Plan (04/05/2024 5:43 AM EST): -Goal BP < 140/90 per JNC-8, < 130/80 per ACC/AHA guideline. Fluctuating BP (hypertensive previously, lately hypotensive resulting renal hypoperfusion) - BP slightly elevated today, but recently hypotensive and home BP normal per patient. - Comanaged with Denis Rodgers RPh through [facility] and combo welder -Work on lifestyle modifications, DASH diet and increase physical activity -continue amlodipine 5 mg daily -continue chlorthalidone 12.5 mg daily -continue Hydralazine 25 mg BID (combo welder seems to be unaware of medication, will [...] with Denis Rodgers RPh through [facility] and combo welder -Work on lifestyle modifications, DASH diet and increase physical activity -continue lisinopril 20 mg daily -continue chlorthalidone 12.5 mg daily -continue Hydralazine 25 mg BID (combo welder seems to be unaware of medication, will [...] 2 diabetes mellitus 01/20/2015 Assessment & Plan (08/12/2024 6:46 AM EDT): - A1c 9.9% on 08/07/24, Slight improvement from A1C 10.4% on 03/29/24 - A1c 6.8% on 05/02/23 Discussed about the importance of lifestyle modifications Current treatment: Glipizide 5 mg bid. Will consider switching to SGLT2i. Or consider changing to glimepride due to her age. - Will start Mounjaro 2.5 mg weekly Treatment Hx: Previously on Metformin which was discontinued due to worsening renal function Relative contraindication to SGLT-2 inhibitor due to recurrent UTI/vaginal candidiasis / UI. Last eye exam: [facility]. Nov 2023. Last foot exam: 05/02/23 Last microalbumin test: 03/29/24 UACR 10.2 Last lipid profile: 03/29/24 may need intensifying therapy by adding zetia. Questionable adherence. Assessment & Plan (04/05/2024 5:53 AM EST): [...] 3 mo Dyslipidemia 06/02/2012 Assessment & Plan (08/07/2024 9:10 AM EDT): Last lipid profile: 03/29/24 Current medication: atorvastatin 80 mg at bedtime Consider adding Zetia Check medication adherence before adding Zetia Continue working on lifestyle modification Assessment & Plan (04/05/2024 5:55 AM EST): [...] Encounters Date Type Department Care Team Description 08/07/2024 9:15 AM EDT Office Visit [address] [address] Kathryn Jarquin MD Moderate persistent asthma without complication (Primary Dx); Hypertension, unspecified type; Metabolic dysfunction-associated steatohepatitis (MASH); Irritable bowel syndrome, unspecified type; Chronic idiopathic constipation; Gastroesophageal reflux disease, unspecified whether esophagitis present; Stage 3b chronic kidney disease (CMS/HCC); Type 2 diabetes mellitus with stage 3b chronic kidney disease, without long-term current use of insulin ([facility]); Hypothyroidism, unspecified type; Dyslipidemia; Chronic pain of both knees; Right hip pain; Dietary counseling; Exercise counseling; Class 1 obesity due to excess calories with serious comorbidity and body mass index (BMI) of 34.0 to 34.9 in adult; Chronic pelvic pain in female; Abdominal pain, lower; Long-term current use of opiate analgesic 08/07/2024 Travel 08/06/2024 Telephone [facility] [address] [place] [address] Kathryn Jarquin MD Chart Prep 08/01/2024 2:45 PM EDT Clinical Support [facility] [address] [place] [address] Rhonda Valdez, biztalk developer pain of both knees 08/01/2024 Telephone [facility] [address] [place] [address] Rhonda Valdez, RN 08/01/2024 Travel 07/25/2024 Refill [facility] [address] [place] [address] Kathryn Jarquin MD Upper back pain; Chronic pain of both knees; Chronic female pelvic pain; Chronic pain syndrome 07/24/2024 Refill [facility] [address] [place] [address] Rhonda Valdez RN Upper back pain; Chronic pain of both knees; Chronic female pelvic pain; Chronic pain syndrome 07/24/[address] [address] Kathryn Jarquin MD Med Refill 07/22/2024 Orders Only GENERIC EXTERNAL DATA DEPARTMENT Provider, Generic External Data 06/25/2024 Refill [facility] [address] [place] [address] Kathryn Jarquin MD Upper back pain; Chronic pain of both knees; Chronic female pelvic pain; Chronic pain syndrome 06/21/2024 2:30 PM EDT Clinical Support [facility] [address] [place] [address] Rhonda Valdez, biztalk developer pain of both knees (Primary Dx); 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; Long-term current use of opiate analgesic 06/21/2024 Telephone [facility] [address] [place] [address] Rhonda Valdez, DELFINA 06/21/2024 Travel 06/06/[address] [address] Kathryn Jarquin MD 05/29/[address] [address] Kathryn Jarquin MD Upper back pain; Chronic pain of both knees; Chronic female pelvic pain; Chronic pain syndrome 05/28/2024 Refill [facility] [address] [place] [address] Kathryn Jarquin MD Upper back pain; Chronic pain of both knees; Chronic female pelvic pain; Chronic pain syndrome 05/25/2024 Travel 05/25/2024 Refill [facility] [address] [place] [address] Rhonda Valdez RN Upper back pain; Chronic pain of both knees; Chronic female pelvic pain; Chronic pain syndrome from Last 3 Months Immunizations Immunization Administration Dates Next Due Hep A, Adult 08/07/2024,03/29/2024 Hep B, adult 06/27/2014,02/18/2014,08/20/2013 Influenza High-dose Quadriva [...] 12+ 11/25/2021,07/05/19 21,06/06/2020 Pfizer Covid-19 Vaccine 12+ 08/07/2024, 4 Pneumococcal Conjugate PCV 20 05/02/2023 Pneumococcal Polysaccharide [...] your housing situation today? I have skinny roberth 08/07/[address] you li ve. Do you have problems with any of the following? None of the above 08/07/2024 Food Insecurity Answer Date Recorded Within the past 12 months, y ou worried that your food would run out before you got money to buy more: Never True 08/07/2024 Within the past 12 months,th e food you bought just didn't last and you didn't have enough money to get more: Never True 09/2024 Transportation Answer Date Recorded In the past 12 months, has l ack of transportation kept you from medical appts, meetings, work or from getting things needed for daily living? No 08/07/2024 Utilities Answer Date Recorded In the past 12 months, has t he electric, gas, oil or water company threatened to shut off services in your home? No 08/07/2024 Depression Answer Date Recorded Patient Health Questionnaire-2 [...] Sign Reading Time Taken Comments Blood Pressure 132/78 08/07/2024 9:13 AM EDT Pulse 93 08/07/2024 9:13 AM EDT Temperature 36.3 ??C (97.3 ??F) 08/07/2024 9:13 AM ED T Respiratory Rate 15 08/07/2024 9:13 AM EDT Oxygen Saturation 94% 08/07/2024 9:13 AM EDT Inhaled Oxygen Concentration - - Weight 75.9 kg (167 lb 6.4 oz) 08/07/2024 9:13 A M EDT Height 147.3 cm (4' 10 ) 08/07/2024 9:13 AM EDT Body Mass Index 34.99 08/07/2024 9:13 AM EDT Plan of Treatment Upcoming Encounters Date Type Department Care Team (Late st Contact Info) Description 08/29/2024 2:00 PM EDT Medication Management [facility] [address] [place] [address] Denis Rodgers, PharmD [address] [place] [address] 09/05/2024 2:15 PM EDT Clinical Support [facility] [address] [facility] [place] [address] Rhonda Valdez, RN [address] [facility] [place] [address] Health Maintenance Due Date Last Done Comments CT Colonography 1955 FIT DNA/Cologuard 1955 FIT 1955 FOBT 1955 Sigmoidoscopy 1955 RSV Patients and Patients Aged 60 years or older (1 - Risk 60-74 years 1-dose series) 2016 Zoster Vaccines (2 of 2) 03/04/2023 01/07/2023 Mammogram 09/13/2024 09/13/2022, 01/03, 01/22/2020, Additional history exists Diabetes: Hemoglobin A1C 11/07/2024 025, 03/29/2024, 05/02/2023, Additional history exists COVID-19 Vaccine ( season) 2025 08/07/2024, 05/02/2023, 11/25/2021, Additional history exists Hepatitis A Vaccines (2 of 2 - Risk 2-dose series) 02/07/2025 08/07/2024, 03/29/2024 Alcohol/Substance Use Screening 03/29/2025 03/29/2024 Depression Screening 03/29/2025 03/29/2024, 03/29/20 Diabetes: Foot Exam 03/29/2025 03/29/2024 Lipid Panel 03/29/2025 03/29/2024, 01/02, 05/15/2021, Additional history exists SDOH Screening 08/07/2025 08/07/2024 Tobacco Screening 08/12/2025 08/12/2024 Eye Exam 11/17/2025 11/18/2023 Colonoscopy 04/15/2028 04/15/2023, 09/10/2022 Colorectal Cancer Screening 04/15/2028 DTaP/Tdap/Td Vaccines (3 - Td or Tdap) [...] patient's age to complete this topic Meningococcal B Vaccine Aged Out No l onger eligible based on patient's age to complete [...] 025 9:13 AM EDT) No Denis Rodgers, Swapnil Procedures Procedure Name Priority Date/Time Associated Diagnosis Comments POCT GLYCOSYLATED HEMOGLOBIN (HGB A1C) Routine 08/07/2024 9:16 AM EDT Type 2 diabetes mellitus with stage 3b chronic kidney disease, without long-term current use of insulin ([facility]) POCT GLUCOSE Routine 08/07/2024 9:15 AM EDT Type 2 diabetes mellitus with stage 3b chronic kidney disease, without long-term current use of insulin ([facility]) MR KNEE WO CONTRAST RIGHT Routine 08/06/2024 3:[address] ABDOMEN PELVIS WO CONTRAST Routine 07/22/2024 4:22 PM EDT URINALYSIS WITH REFLEX MICROSCOPIC Routine 07/22/2024 2:35 PM EDT COMPREHENSIVE METABOLIC PANEL Routine 07/22/2024 2:34 PM EDT CBC WITH AUTO DIFFERENTIAL Routine 07/22/2024 2:34 PM EDT POCT FLORENCIA-14 URINE DRUG SCREEN Routine 06/21/2024 2:51 PM EDT 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 Chronic pain of both knees LIPID PANEL WITH REFLEX TO DIRECT LDL Routine 03/29/2024 11:49 AM EST Type 2 diabetes mellitus with stage 3b chronic kidney disease, without long-term current use of insulin ([facility]) DIABETES EYE EXAM Routine 11/18/2023 COLONOSCOPY Routine 04/15/2023 MAMMOGRAPHY Routine 09/13/2022 ZZZ HISTORICAL HEPATITIS C ANTIBODY RFLX Routine 04/18/2019 8:30 AM EST from Last 3 Months or Most Recently Relevant to Health Maintenance Results * (ABNORMAL) POCT glycosylated hemoglobin (Hgb A1c) (08/07/2024 9:16 AM EDT) Pathologist [facility] Hemoglobin A1C 9.9(A) 4.0 - 6.0 % QC Media Lot # [id number] Lot# Expiration Date ,026 Blood Capillary blood specimen / Unknown 08/07/2024 9:16 AM EDT Kathryn Jarquin MD POINT OF CARE TEST ENTER/EDIT OR DERABLES Final Result * (ABNORMAL) POCT glucose manually resulted (08/07/2024 9:15 AM EDT) Glucose Blood, POC 237(A) 60 - 200 mg/dL QC Media Lot # [id number] Lot# Expiration Date ,025 Blood Capillary blood specimen / Unknown 08/07/2024 9:15 AM EDT us Kathryn Jarquin MD POINT OF CARE TEST ENTER/EDIT OR DERABLES Final Result * MR Knee w/o Contrast Right (08/06/2024 3:04 PM EDT) Anatomical Region Laterality Modality Magnetic Resonan ce 08/06/2024 3:04 PM EDT Narrative 08/06/2024 3:56 PM EDT ? [facility] ?[address] ?[place] [address] ? Magnetic Resonance Report ? Signed ? Patient: Wen Moran ?MR#: [id number] ?? [id number] ? : 1955 ?Acct:[id number] ? Age/Sex: 69 / F ?ADM Date: 08/06/24 ? Loc: HO.MRI ? Attending Dr: Kailash Watkins MD ? Ordering Physician: Kailash Watkins MD ?? Date of Service: 08/06/24 ?? Procedure(s): MR knee RT wo con ?? Accession Number(s): [id number] ? cc: Kailash Watkins MD; Kathryn Jarquin [...] DD/ 1504 ? TD/TT: 08/06/24 1513 ? Flight Test Mechanic: ? Procedure Note Donmarinabernardoter, Image - 08/06/2024 [place] [id number] Magnetic Resonance Report Signed Patient: Devni Moran#: [id number] : 7Acct:[id number] Age/Sex: 69 / FADM Date: 08/06/24 Loc: HO.MRI Attending Dr: Kailash Watkins MD Ordering Physician: Kailash Watkins MD Date of Service: 08/06/24 Procedure(s): MR knee RT wo con Accession Number(s): [id number] cc: Kailash Watkins MD; Kathryn Jarquin MD [...] 08/06/24 1553 DD/ 1504 TD/TT: 08/06/24 1513 Flight Test Mechanic: [facility] External Provider IMG MRI PROCEDURES Final Result * CT Abdomen Pelvis w/o Contrast (07/22/2024 4:22 PM EDT) Anatomical Region Laterality Modality Body, Pelvis, Abdomen Computed T omography 07/22/2024 4:22 PM EDT Narrative 07/22/2024 4:23 PM EDT ? [facility] ?[address] ?[place] [address] ? CT Scan Report ? Signed ? Patient: Wen Moran ?MR#: [id number] ?? [id number] ? : 1955 ?Acct:[id number] ? Age/Sex: 69 / F ?ADM Date: 07/22/24 ? Loc: HO.ED ? Attending Dr: ? Ordering Physician: Arabella Clifton ?? Date of Service: 07/22/24 ?? Procedure(s): CT abdomen pelvis wo IV con ?? Accession Number(s): [id number] ? cc: Arabella Clifton; Kathryn Jarquin MD ? Report Number: ?? [id number]: Total DLP = ??743.00 mGy-cm ? CLINICAL HISTORY: lower abd pain ? CT abdomen and pelvis without contrast ? Comparison: CT/UT/SR - CT ABDOMEN PELVIS WO IV CON [...] by Zulay Diaz MD in OV> ? 07/22/241621 ? DD/ ? TD/TT: 07/22/24 1622 ? Flight Test Mechanic: ? Procedure Note Donotuseinterpreter, Image - 07/22/[address] [address] [place] Scan Report Signed Patient: Devin Moran#: [id number] : 1955cct:[id number] Age/Sex: 69 / FADM Date: 07/22/24 Loc: HO.ED Attending Dr: Ordering Physician: Arabella Clifton Date of Service: 07/22/24 Procedure(s): CT abdomen pelvis wo IV con Accession Number(s): [id number] cc: Arabella Clifton; Kathryn Jarquin MD Report Number: [id number]: Total DLP = 743.00 mGy-cm CLINICAL HISTORY: lower abd pain CT abdomen and pelvis without contrast Comparison: CT/UT/SR - CT ABDOMEN PELVIS WO IV CON [...] signed by Zulay Diaz MD in OV> 07/22/241621 DD/ 21 TD/TT: 07/22/241621 Flight Test Mechanic: [facility] External Provider IMG CT PROCEDURES Final Result * (ABNORMAL) Urinalysis w/reflex microscopic (07/22/2024 2:35 PM EDT) Color Urine Yellow [facility] Appearance Urine Clear [facility] PH 5.5 5.0 - 9.0 [facility] Glucose Urine UA 500(A) Negative mg/dL [facility] Urine Blood Negative Negative [facility] Specific [place] - Urine 1.020 1.005 - 1.025 [facility] Urine Protein Negative Neg-Trace mg/dL [facility] Urine Ketones Negative Negative mg/dL [facility] Nitrite Urine Negative Negative [facility] Leukocyte Esterase Urine Negative Negative [facility] 07/22/2024 2:35 PM EDT 07/22/2024 2:37 PM EDT Narrative [facility] - 07/22/2024 2:48 PM EDT Urine, Clean Catch Generic External Data Provider LAB URINE ORDERAB LES Final Result [facility] [address] [place] [phone] * CBC auto differential (07/22/2024 2:34 PM EDT) White Blood Count 10.5 4.8 - 10.8 X10*3/uL [facility] Red Blood Count 4.76 4.20 - 5.50 X10*6/uL [facility] Hemoglobin 13.1 12.0 - 16.0 g/dl [facility] Hematocrit 40.6 37.0 - 47.0 % [facility] Mean Corpuscular Volume 85.3 80.0 - 98.0 fL [facility] Mean Corpuscular Hemoglobin 27.5 27.0 - 33.0 pg [facility] Mean Corpuscular HGB Conc 32.3 31.0 - 35.0 g/dl [facility] Red Cell Distribution Width 15.1 11.0 - 16.0 % [facility] Platelet Count 211 160 - 400 X10*3/uL [facility] Mean Platelet Volume 10.7 9.4 - 12.3 fL [facility] Neutrophils Percent Auto 63.9 45 - 73 % [facility] Imm Gran Pct Auto 0.3 0.0 - 0.4 % [facility] Lymphocytes Percent Auto 28.6 20 - 40 % [facility] Monocytes Percent Auto 5.4 2 - 11 % [facility] Eosinophils Percent Auto 1.4 0 - 4 % [facility] Basophils Percent Auto 0.4 0 - 2 % [facility] NRBC Pct Auto 0.0 0.0 - 0.2 /100WBC [facility] Neutrophils Absolute Auto 6.7 2.0 - 8.3 x10*3/uL [facility] Imm Gran Abs Auto 0.03 0.00 - 0.03 X10*3/uL [facility] Lymphocytes Absolute Auto 3.0 1.2 - 4.9 X10*3/uL [facility] Monocytes Absolute Auto 0.6 0.1 - 1.2 X10*3/uL [facility] Eosinophils Absolute Auto 0.2 0.0 - 0.4 X10*3/uL [facility] Basophils Absolute Auto 0.0 0.0 - 0.2 X10*3/uL [facility] NRBC Abs Auto 0.000 0.0 - 0.012 X10*3/uL [facility] 07/22/2024 2:34 PM EDT 07/22/2024 2:37 PM EDT us Generic External Data Provider LAB BLOOD ORDERAB LES Final Result [facility] [address] [place] [address] [phone] * (ABNORMAL) Comprehensive Metabolic Panel (07/22/2024 2:34 PM EDT) Sodium 139 135 - 145 mmol/L [facility] Potassium 4.4 3.3 - 5.1 mmol/L [facility] Chloride 102 96 - 108 mmol/L [facility] Carbon Dioxide 25 22 - 29 mmol/L [facility] Anion Gap 16 12 - 20 [facility] Urea Nitrogen (BUN) 26(H) 9 - 16 mg/dL [facility] Creatinine, Serum 1.49(H) 0.5 - 1.4 mg/dL [facility] Creatinine Clr Calc Pharmacy 32.1 [facility] Comment:Provided height and weight: 149.86 cm,76.1 kg.eGFR (calculated from the MDRD study equation) and eCrCl(calculated from the Cockcroft-Gault equation) are based ondifferent parameters and may not yield comparable results.If eCrCl result is absurd, please check patient'sheight/weight. Estimated Glomerular Filt Rate 35 [facility] Comment:Chronic Kidney Disea se: Estimated GFR < 60 mL/min/1.88w9Rulgxj Kidney Disease: Estimated GFR < 15 mL/min/1.73m2 Glucose 287(H) 60 - 115 mg/dL [facility] Calcium 9.9 8.4 - 10.2 mg/dL [facility] Bilirubin, Total 0.2 0.0 - 1.0 mg/dL [facility] Aspartate Amino Transferase 25 5 - 31 U/L [facility] Alanine Aminotransferase 16 0 - 31 U/L [facility] Total Protein 7.5 6.5 - 8.0 g/dL [facility] Albumin Level 4.1 3.5 - 5.0 g/dL [facility] Alkaline Phosphatase 125(H) 39 - 117 U/L [facility] 07/22/2024 2:34 PM EDT 07/22/2024 2:37 PM EDT us Generic External Data Provider LAB BLOOD ORDERAB LES Final Result [facility] [address] [place], [place] [phone] * POCT FLORENCIA-14 Urine Drug Screen (06/21/2024 2:51 PM EDT) Oxycodone Screen, Urine Positive Urine Urine specimen obtained by clean catch procedure / Unknown 06/21/2024 2:51 PM EDT Narrative Rhonda Valdez RN - 06/21/2024 2:51 PM EDT Lot# [id number] Exp: 11-21-25 Kathryn Jarquin MD POINT OF CARE TEST ENTER/EDIT OR DERABLES Final Result * (ABNORMAL) Lipid Panel with Reflex to Direct LDL (03/29/2024 11:49 AM EST) Triglycerides 232(H) <150 mg/dL [facility] Comment:Desirable Triglyceri de: less than 150 mg/dLBorderline High Triglyceride 150-199 mg/dLHigh Triglyceride: 200-499 mg/dLVery High Triglyceride: greater than or equal to 5OO mg/dL Cholesterol 253(H) <200 mg/dL [facility] Comment:Desirable Cholestero l: less than 200 mg/dLBorderline High Cholesterol: 200-239 mg/dLHigh Cholesterol: greater than 239 mg/dL LDL Cholesterol Calculated 148(H) <100 mg/dL [facility] Comment:Desirable LDL: less than 100 mg/dLNear Optimal/Above Optimal LDL: 110- 129 mg/dLBorderline High LDL: 130-159 mg/dLHigh LDL: 160-189 mg/dLVery High LDL: greater than or equal to 190 mg/dL HDL Cholesterol 59 >40 mg/dL [facility] Comment:Desirable HDL: great er than 40 mg/dL Note: This HDL assay may give artificially low results in patients with liver disease. Blood 03/29/2024 11:4 9 AM EST 03/29/2024 1:10 PM EST Kathryn Jarquin MD LAB BLOOD ORDERABLES Final Resul t [facility] [address] [place] [address] [phone] * Diabetes Eye Exam (11/18/2023) Eye Exam Normal Normal 11/18/2023 Historical Provider MD HEALTH MAINTENANCE Final Result * Colonoscopy (04/15/2023) Colonoscopy Normal Normal Narrative Chayo Tobin - 04/15/2023 Recommended 5 year follow up see external hospital admission note on 04/15/2023 Historical Provider HEALTH MAINTENANCE Final Result * Mammography (09/13/2022) Mammogram bi-rads Anatomical Region Laterality Modality Other [facility] Unassigned Pcp HEALTH MAINTENANCE Final Result * HEPATITIS C ANTIBODY RFLX (04/18/2019 8:30 AM EST) HEPATITIS C ANTIBODY NONREACTIVE NONREACTIVE [facility] Comment: Antibodies to HCV not detected; does not exclude early acute HCV infection. 04/18/2019 8:30 AM EST Kathryn Jarquin MD HISTORICAL/NON ORDERABLE LABS Fi nal Result [facility] [address] from Last 3 Months or Most Recently Relevant to Health Maintenance Insurance [employer] (O D-SNP) [place] [id number] [employer] Care Teams Cyberathlete Relationship Specialty Start Date End Date Kathryn Jarquin MD [address] [place] [address] PCP - General Family Medicine 04/04/18 Denis Rodgers, NamitaD [address] [place] [address] Pharmacist Internal Medicine 10/22/22
--- OUTSIDE RECORDS SUMMARY | 2024-08-20 09:18 | XMS_ITS | Encounter Summary ---
Author Organization [employer] Address [address] [facility] 7t [place] [address] Care Team Providers Care Director Of Planning Name Role Phone Kathryn Jarquin MD Primary Care Provider [phone] Denis Rodgers PharmD Unavailable [phone] Encounter Details Date Type Department Care Team (Late st Contact Info) Description 09/30/2023 Orders Only [facility] MEDICINE [address] [place], [place] [phone] Kathryn Jarquin MD [address] [place], [place] [phone] Social History Tobacco Use Types Packs/Day Years [...] Description 08/29/2024 2:00 PM EDT Medication Management [facility] MEDICINE [address] [place] [address] Denis Rodgers, PharmD [address] [place] [address] 09/05/2024 2:15 PM EDT Clinical Support [facility] PEDS [address] [place], [place] [phone] Rhonda Valdez, RN [address] [place], [place] [phone] documented as of this encounter Goals Goal Patient Goal Type Associated Problems Recent Progress Patient-Stated? Author Blood Pressure < 140/90 Blood Pressure 132/78( 025 9:13 AM EDT) No Denis Rodgers, PharmD documented as of this encounter Visit Diagnoses Not on filedocumented in this encounter Care Teams Director Of Planning Relationship Specialty Start Date End Date Kathryn Jarquin MD [address] [place] [address] PCP - General Family Medicine 04/04/18 Denis Rodgers, PharmD [address] [place] [address] Pharmacist Internal Medicine 10/22/22 documented as of this encounter
--- OUTSIDE RECORDS SUMMARY | 2024-08-20 09:18 | XMS_ITS | Encounter Summary ---
Author Organization [employer] Address [address] [facility] 7t [place] [address] Care Team Providers Care Heel Slugger Name Role Phone Kathryn Jarquin MD Primary Care Provider [phone] Deins Rodgers PharmD Unavailable [phone] Encounter Details Date Type Department Care Team (Late st Contact Info) Description 04/02/2024 Orders Only [facility] MEDICINE [address] [place] [address] Kathryn Jarquin MD [address] [place] [address] Social History Tobacco Use Types Packs/Day Years [...] Description 08/29/2024 2:00 PM EDT Medication Management [facility] MEDICINE [address] [place] [address] Denis Rodgers PharmD [address] [place] [address] 09/05/2024 2:15 PM EDT Clinical Support [facility]EDS [address] [place] [address] Rhonda Valdez, RN [address] [place] [address] documented as of this encounter Goals Goal Patient Goal Type Associated Problems Recent Progress Patient-Stated? Author Blood Pressure < 140/90 Blood Pressure 132/78( 025 9:13 AM EDT) No Denis Rodgers PharmD documented as of this encounter Visit Diagnoses Not on filedocumented in this encounter Additional Health Concerns Assessment Noted Time PHQ-9 Depression Total Score: 12 024 10:26 AM EST documented as of this encounter Care Teams Heel Slugger Relationship Specialty Start Date End Date Kathryn Jarquin MD [address] [place] [address] PCP - General Family Medicine 04/04/18 Denis Rodgers, NamitaD [address] [place] [address] [phone] Pharmacist Internal Medicine 10/22/22 documented as of this encounter
--- OUTSIDE RECORDS SUMMARY | 2024-08-20 09:18 | XMS_ITS | Clinical Summary ---
Author Organization [facility] Address [address] [facility] [address] [place] [address] Phone Care Team Providers Care Member Services Coordinator Name Role Phone Kathryn Jarquin MD Primary Care Provider [phone] Allergies No known active allergies Active Problems [...] Last Assessment & Plan: -follow up with drawing tender -avoid nephrotoxic drugs -adjust medication: metformin ER [...] patient's age to complete this topic Insurance [facility]ly [facility] Dual SNP ([id number]) [place] [id number] [employer] [place] [id number] Care Teams Member Services Coordinator Relationship Specialty Start Date End Date Kathryn Jarquin MD [address] [place] [address] PCP - General Family Medicine 08/31/23
--- OUTSIDE RECORDS SUMMARY | 2024-08-20 09:18 | XMS_ITS | Encounter Summary ---
Author Organization [employer] Address [address] [facility] 7t [place] [address] Care Team Providers Care Hide Curer Name Role Phone Kathryn Jarquin MD Primary Care Provider [phone] Denis Rodgers PharmD Unavailable [phone] Encounter Details Date Type Department Care Team (Late st Contact Info) Description 01/14/2023 Orders Only [facility] MEDICINE [address] [place] [address] Kathryn Jarquin MD [address] [place] [address] Stage 3b chronic kidney disease (CMS/HCC) (Primary [...] t he electric, gas, oil or water [employer] threatened to shut off services in your [...] Description 08/29/2024 2:00 PM EDT Medication Management [facility] MEDICINE [address] [place] [address] Denis Rodgers PharmD [address] [place] [address] 09/05/2024 2:15 PM EDT Clinical Support [facility] MED & PEDS 505 [place], [place] [phone] Rhonda Valdez, RN [address] [place], [place] [phone] documented as of this encounter Goals Goal Patient Goal Type Associated Problems Recent Progress Patient-Stated? Author Blood Pressure < 140/90 Blood Pressure 132/78( 025 9:13 AM EDT) No Denis Rodgers, Swapnil documented as of this encounter Visit Diagnoses Diagnosis Stage 3b chronic kidney disease (CMS/HCC)- Primary Essential hypertension Unspecified essential hypertension Type 2 diabetes mellitus with hyperglycemia, without long-term current use of insulin ([facility]) documented in this encounter Care Teams Hide Curer Relationship Specialty Start Date End Date Kathryn Jarquin MD [address] [place] [address] [phone] PCP - General Family Medicine 04/04/18 Denis Rodgers, Swapnil [address] [place] [address] [phone] Pharmacist Internal Medicine 10/22/22 documented as of this encounter
--- OUTSIDE RECORDS SUMMARY | 2024-08-20 09:18 | XMS_ITS | Encounter Summary ---
Author Organization [facility], Address [address] [place] [address] Phone Care Team Providers Care Solar Project Manager Name Role Phone Kathryn Jarquin MD Primary Care Provider [phone] Encounter Details Date Type Department Care Team (Late st Contact Info) Description 09/07/2023 Documentation Only [facility], [address] [place] [address] Doug Luna [address] [place] [place] [address] Social History Tobacco Use [...] filedocumented in this encounter Care Teams Solar Project Manager Relationship Specialty Start Date End Date Kathryn Jarquin MD [address] [place] [address] PCP - General Family Medicine 08/31/23 documented as of this encounter
--- OUTSIDE RECORDS SUMMARY | 2024-08-20 09:18 | XMS_ITS | Encounter Summary ---
Author Organization [employer] Address 75 [facility] 7t [place] [address] Care Team Providers Care Large Sheetfed Press Operator Name Role Phone Kathryn Jarquin MD Primary Care Provider [phone] Denis Rodgers PharmD Unavailable [phone] Reason for Visit * Reason Comments Med Refill Encounter Details Date Type Department Care Team (Late st Contact Info) Description 05/28/2024 Refill [facility] MEDICINE [address] [place] [address] Kathryn Jarquin MD [address] [place] [address] Upper back pain; Chronic pain of both [...] Description 08/29/2024 2:00 PM EDT Medication Management [facility] MEDICINE [address] [place] [address] Denis Rodgers, PharmD [address] [place] [address] 09/05/2024 2:15 PM EDT Clinical Support [facility] MED & PEDS [address] [place] [address] Rhonda Valdez, RN [address] [place] [address] documented as of this encounter Goals Goal [...] documented as of this encounter Care Teams Large Sheetfed Press Operator Relationship Specialty Start Date End Date Kathryn Jarquin MD [address] [place] [address] PCP - General Family Medicine 04/04/18 Denis Rodgers, PharmD [address] [place] [address] Pharmacist Internal Medicine 10/22/22 documented as of this encounter
--- OUTSIDE RECORDS SUMMARY | 2024-08-20 09:18 | XMS_ITS | Encounter Summary ---
Author Organization [employer] Address [address] [facility] [address] 7t [place] [address] Care Team Providers Care Galley Hand Name Role Phone Kathryn Jarquin MD Primary Care Provider [phone] Denis Rodgers PharmD Unavailable [phone] Encounter Details Date Type Department Care Team (Late st Contact Info) Description 03/26/2024 Abstract [facility] MEDICINE [address] [place], [place] [phone] Mya Garvey [place] Social History Tobacco Use [...] AM EDT documented as of this encounter Functional Status * Over the past 2 weeks, how often have you been bothered by any of the following problems? Question Answer Date of Assessment Author Patient Health Questionnaire -2 Score 4 03/29/2024 10:26 AM Neel Choudhary [place] * Little interest or pleasure in doing things Answer Date of Assessment Author More than half the days 03/29/2024 10:26 AM Mya Choudhary [place] * Feeling down, depressed, or hopeless Answer Date of Assessment Author More than half the days 03/29/2024 10:26 AM Mya Choudhary [place] * Trouble falling or staying asleep, or sleeping too much Answer Date of Assessment Author More than half the days 03/29/2024 10:26 AM Mya Choudhary [place] * Feeling tired or having little energy Answer Date of Assessment Author More than half the days 03/29/2024 10:26 AM Mya Choudhary [place] * Poor appetite or overeating Answer Date of Assessment Author Several days 03/29/2024 10:26 AM Mya Choudhary [place] * Feeling bad about yourself - or that you are a failure or have let yourself or your family down Answer Date of Assessment Author More than half the days 03/29/2024 10:26 AM Mya Choudhary [place] * Trouble concentrating on things, such as reading the newspaper or watching television Answer Date of Assessment Author Several days 03/29/2024 10:26 AM Mya Choudhary [place] * Moving or speaking so slowly that other people could have noticed? Or the opposite - being so fidgety or restless that you have been moving around a lot more than usual. Answer Date of Assessment Author Not at all 03/29/2024 10:26 AM Mya Choudhary [place] * Thoughts that you would be better off or hurting yourself in some way Answer Date of Assessment Author Not at all 03/29/2024 10:26 AM Mya Choudhary [place] * Patient Health Questionnaire-9 Score Answer Date of Assessment Author 12 03/29/2024 10:26 AM Mya Choudhary [place] * How difficult have these problems made it for you to do your work, take care of things at home, or get along with other people? Answer Date of Assessment Author Very difficult 03/29/2024 10:26 AM Mya Choudhary [place] documented as of this encounter Plan of Treatment Upcoming Encounters Date Type Department Care Team (Late st Contact Info) Description 08/29/2024 2:00 PM EDT Medication Management [facility] MEDICINE [address] [place] [address] Denis Rodgers, PharmD [address] [place] [address] 09/05/2024 2:15 PM EDT Clinical Support [facility] MED [facility] PEDS [address] [place] [address] Rhonda Valdez, RN 505 [place] [address] documented as of this encounter Goals Goal Patient Goal Type Associated Problems Recent Progress Patient-Stated? Author Blood Pressure < 140/90 Blood Pressure 132/78( 025 9:13 AM EDT) No Denis Rodgers, PharmD documented as of this encounter Procedures Procedure Name Priority Date/Time Associated Diagnosis Comments DIABETES EYE EXAM Routine 11/18/2023 documented in this encounter Results * Diabetes Eye Exam (11/18/2023) Pathologist [facility] Eye Exam Normal Normal 11/18/2023 Historical Provider HEALTH MAINTENANCE Final Result documented in this encounter Visit Diagnoses Not on filedocumented in this encounter Care Teams Galley Hand Relationship Specialty Start Date End Date Kathryn Jarquin MD [address] [place] [address] PCP - General Family Medicine 04/04/18 Denis Rodgers, NamitaD [address] [place] [address] Pharmacist Internal Medicine 10/22/22 documented as of this encounter
--- OUTSIDE RECORDS SUMMARY | 2024-08-20 09:18 | XMS_ITS | Encounter Summary ---
Author Organization [employer] Address [address] [facility] 7t [place] [address] Care Team Providers Care Clinical Rehabilitation Coordinator Name Role Phone Kathryn Jarquin MD Primary Care Provider [phone] Denis Rodgers PharmD Unavailable [phone] Encounter Details Date Type Department Care Team (Late st Contact Info) Description 01/14/2023 Orders Only [facility] MEDICINE 230 [place] [address] Kathryn Jarquin MD 230 [place] [address] Stage 3b chronic kidney disease (CMS/HCC) (Primary [...] t he electric, gas, oil or water [employer] threatened to shut off services in your [...] Description 08/29/2024 2:00 PM EDT Medication Management [facility] MEDIC[facility] 230 [place] [address] Denis Rodgers PharmD [address] [place], [place] [phone] 09/05/2024 2:15 PM EDT Clinical Support [facility] MED & PEDS [address] [place], [place] [phone] Rhonda Valdez, DELFINA 505 [place] [address] Scheduled Orders Name Type Priority Associated Diagnoses Orde r Schedule Comprehensive Metabolic Panel Lab Routine Stage 3b chronic kidney disease ([facility]/HCC) Expected: 01/14/2023 (Approximate), Expires: 01/15/2024 Creatine [...] Diagnoses Diagnosis Stage 3b chronic kidney disease ([facility]/HCC)- Primary Essential hypertension Unspecified essential hypertension Type 2 diabetes mellitus with hyperglycemia, without long-term current use of insulin (CMS/HCC) documented in this encounter Care Teams Clinical Rehabilitation Coordinator Relationship Specialty Start Date End Date Kathryn Jarquin MD [address] [place] [address] PCP - General Family Medicine 04/04/18 Denis Rodgers, PharmD [address] [place] [address] Pharmacist Internal Medicine 10/22/22 documented as of this encounter
== END 2024-08-20 09:50 | disposition home or self-care (01) ==
LOC: HO.PMC 09:05
PROVIDERS: PCP Family Medicine; Referring Provider Orthopaedic Surgery; Visit Provider Internal Medicine
DX: M47.816 Spondylosis without myelopathy or radiculopathy, lumbar region (principal)
CPT/HCPCS: 99214

== ENCOUNTER → 2024-08-20 09:04 | Outpatient (BNVA) | payer OTHER, SELFPAY | PROVIDERS: PCP Family Medicine; Referring Provider Orthopaedic Surgery; Visit Provider Internal Medicine | DX: M47.816 Spondylosis without myelopathy or radiculopathy, lumbar region (principal) | CPT/HCPCS: 99212 ==

== ENCOUNTER 2024-09-06 09:41 | Outpatient (REF) | payer OTHER, SELFPAY ==
--- OUTSIDE RECORDS SUMMARY | 2024-09-06 10:53 | XMS_ITS | Encounter Summary ---
Author Organization [employer] Address [address] [facility] [address] [place] [address] Care Team Providers Care Market Manager Name Role Phone Kathryn Jarquin MD Primary Care Provider [phone] Denis Rodgers PharmD Unavailable [phone] Reason for Visit * Reason Comments Med Refill Encounter Details Date Type Department Care Team ([facility] st Contact Info) Description 05/28/2024 Refill [facility] MEDICINE [address] [place], [place] [phone] Kathryn Jaqruin MD [address] [place] [address] Upper back pain; Chronic pain of both [...] Care Team (Late st Contact Info) Description 10/03/2024 2:00 PM EDT Medication Management [facility]INE [address] [place] [address] Denis Rodgers, PharmD [address] [place] [address] 11/14/2024 3:15 PM EDT Clinical Support [facility] MED & PEDS [address] [place] [address] Rhonda Valdez, RN [address] [place] [address] documented as of this encounter Goals Goal Patient Goal Type Associated Problems Recent Progress Patient-Stated? Author Blood Pressure < 140/90 Blood Pressure 130/72( 025 2:44 PM EDT) No Denis Rodgers, PharmD documented as of this encounter Visit Diagnoses Diagnosis Upper back pain Unspecified backache Chronic pain of both knees Chronic female pelvic pain Unspecified symptom associated with female genital organs Chronic pain syndrome documented in this encounter Additional Health Concerns Assessment Noted Time PHQ-9 Depression Total Score: 12 024 10:26 AM EST documented as of this encounter Care Teams Market Manager Relationship Specialty Start Date End Date Kathryn Jarquin MD [address] [place] [id number] PCP - General Family Medicine 04/04/18 Denis Rodgers, PharmD [address] [place], [place] [address] [address] Pharmacist Internal Medicine 10/22/22 documented as of this encounter
[2024-09-06 12:15] LABS: Anion Gap 16 (12-20); Blood Urea Nitrogen 29 mg/dL (9-16); Carbon Dioxide 27 mmol/L (22-29); Chloride 99 mmol/L (96-108); Estimated Glomerular Filt Rate 33; Glucose Random 196 mg/dL (60-115); Potassium 3.4 mmol/L (3.3-5.1); Sodium 139 mmol/L (135-145)
[2024-09-09 10:09] LABS: Prot Elec - Albumin 3.9 g/dL (3.8-4.8); Prot Elec - Alpha1 0.4 g/dL (0.2-0.3); Prot Elec - Beta 1 0.5 g/dL (0.4-0.6); Prot Elec - Beta 2 0.5 g/dL (0.2-0.5); Prot Elec - Gamma 0.9 g/dL (0.8-1.7); Prot Elec - Total Protein 7.1 g/dL (6.1-8.1)
[2024-09-10 10:12] LABS: IgA 239 mg/dL (70-320); IgG 1032 mg/dL (600-1540); IgM 108 mg/dL (50-300)
== END 2024-09-06 09:42 | disposition home or self-care (01) ==
LOC: HO.HHCL 09:41
PROVIDERS: Visit Provider Internal Medicine Hypertension Specialist
DX: I12.9 Hypertensive chronic kidney disease with stage 1 through stage 4 chronic kidney disease, or unspecified chronic kidney disease (principal); N18.9 Chronic kidney disease, unspecified
CPT/HCPCS: 36415; 80048; 82784; 84165; 86334

== ENCOUNTER 2024-09-07 10:12 | Outpatient (REF) | payer OTHER, SELFPAY ==
--- OUTSIDE RECORDS SUMMARY | 2024-09-07 10:59 | XMS_ITS | Encounter Summary ---
Author Organization [employer] Address [address] [facility] 7t [place] [address] Care Team Providers Care Company Dancer Name Role Phone Kathryn Jarquin MD Primary Care Provider [phone] Denis Rodgers PharmD Unavailable [phone] Reason for Visit * Reason Comments Med Refill Encounter Details Date Type Department Care Team ([facility] st Contact Info) Description 05/28/2024 Refill [facility] MEDICINE [address] [place] [address] Kathryn Jarquin MD [address] [place] [address] Upper back pain; Chronic pain of both [...] Description 10/03/2024 2:00 PM EDT Medication Management [facility] MEDICINE [address] [place] [address] Denis Rodgers, PharmD [address] [place] [address] 11/14/2024 3:15 PM EDT Clinical Support [facility] MED & PEDS [address] [place] [address] Rhonda Valdez, RN [address] [place] [address] documented as of this encounter Goals Goal [...] documented as of this encounter Care Teams Company Dancer Relationship Specialty Start Date End Date Kathryn Jarquin MD [address] [place] [address] PCP - General Family Medicine 04/04/18 Denis Rodgers, PharmD [address] [place], [place] [address] [address] Pharmacist Internal Medicine 10/22/22 documented as of this encounter
[2024-09-07 11:29] LABS: Appearance Urine Clear; Color Urine Yellow; Glucose Urine UA Negative (Negative); Leukocyte Esterase Urine Negative (Negative); Nitrite Urine Negative (Negative); PH 5.5 (5.0-9.0); Urine Blood Negative (Negative); Urine Ketones Negative (Negative); Urine Protein Negative (Neg-Trace)
== END 2024-09-07 10:13 | disposition home or self-care (01) ==
LOC: HO.HHCL 10:12
PROVIDERS: Visit Provider Internal Medicine Hypertension Specialist
DX: I12.9 Hypertensive chronic kidney disease with stage 1 through stage 4 chronic kidney disease, or unspecified chronic kidney disease (principal); N18.9 Chronic kidney disease, unspecified; R30.0 Dysuria
CPT/HCPCS: 81003

== ENCOUNTER 2024-09-28 09:23 | Emergency (ER) | payer OTHER, SELFPAY ==
[2024-09-28] VITALS (10 sets, daily range): BP systolic 112–158; BP diastolic 55–78; PULSE 61–77; RESP 16–20; TEMP 36.4–36.8; O2SAT 92–99; BMI 30.3
--- NOTE | ~2024-09-28 | CT_ITS ---
EXAMINATION: CT PELVIS WITHOUT CONTRAST CLINICAL INFORMATION: Unable to stand on right leg. Pain. COMPARISON: None available. TECHNIQUE: Helical scanning was performed with submillimeter collimation through the pelvis. Sagittal and coronal multiplanar 2-D reconstructions were obtained. This CT examination was performed using dose optimization techniques as appropriate, variously including the following: *Automated exposure control *Adjustment of mA and/or kV according to patient size (this includes techniques or standardized protocols for targeted exams where dose is matched to indication/reason for exam; i.e. extremities or head) *Use of iterative reconstruction technique FINDINGS: OSSEOUS STRUCTURES: Pelvis appears intact. There are no fractures. The right and left hips appear intact without fracture. The sacrum appears intact without fracture. The imaged lower lumbar spine appears intact without fracture. The SI joints are intact. There are no bone lesions. PELVIS: Pelvic girdle musculature has a normal appearance without hematoma or fluid collection. The bladder is intact. There has been a hysterectomy. Imaged bowel structures demonstrate diverticulosis of the sigmoid. A normal appendix is visualized. There has been prior ventral abdominal hernia repair, with mesh, partially imaged. The abdominal wall and pelvic wall appear normal otherwise. There are moderate calcific atheromatous changes of the arterial structures. CT/CT pelvis wo IV con IMPRESSION: 1. No acute findings in the pelvis. There are no fractures or bone lesions. 2. There is sigmoid diverticulosis. There has been a hysterectomy. Electronically signed by: Lazaro Mitchell MD 09/28/2024 02:19 PM EDT
--- NOTE | ~2024-09-28 | XR_ITS ---
EXAMINATION: XR LUMBOSACRAL SPINE CLINICAL INFORMATION: lower back pain COMPARISON: January 02, 2014 report TECHNIQUE: AP and lateral views FINDINGS: Transitional vertebra labeled S1. Multilevel small marginal osteophyte formation and endplate sclerosis throughout the axial skeleton. No acute cortical disruption. No gross malalignment. No lytic or blastic lesions. S-shaped curvature of the thoracolumbar spine. Vascular calcifications, aorta. Metallic coils in a circumferential fashion likely periumbilical. XR/XR lumbar spine 2-3V IMPRESSION: Multilevel thoracolumbar spondylosis without acute fracture or gross listhesis. Atherosclerosis disease, aorta. Electronically signed by: Bonilla Mccabe MD 09/28/2024 10:15 AM EDT
--- NOTE | 2024-09-28 10:47 | ED_ITS ---
HPI - General Adult General Chief complaint: Back Pain/Injury Stated complaint: Right leg pain, swelling Time Seen by Provider: 09/28/24 10:47 Source: patient, family, RN notes reviewed, old records reviewed and legislative analyst Mode of arrival: ambulatory Limitations: language barrier History of Present Illness ED Provider: Hung HPI narrative: Patient is a 69-year-old Lao-speaking female with history of lumbar spondylosis, you would feel HTN, hypertensive nephropathy, CKD stage 4, Love, GERD, chronic idiopathic constipation presenting to the emergency department with complaint of pain radiating from right sacral area down her right leg since this morning. States pain begins under her buttock and radiates down. Pain is severe and states she is unable to stand due to pain. Denies any saddle anesthesia or bowel or bladder incontinence. Patient denies recent fall or other trauma but daughter states that she lives alone and can't be sure patient did not fall. MD complaint: back pain Related Data Home Medications ?Medication ?Instructions ?Recorded ?Confirmed aspirin 81 mg tablet,delayed 81 mg PO DAILY 06/10/20 0 09/28/24 release (Adult Aspirin Regimen) chlorthalidone 50 mg tablet 25 mg PO DAILY 03/23/21 fluoxetine 20 mg capsule 60 mg PO QAM 03/23/21 mirtazapine 45 mg tablet 45 mg PO BEDTIME 03/23/21 cholecalciferol (vitamin D3) 25 25 mcg PO DAILY 09/28/24 mcg (1,000 unit) capsule (Vitamin D3) levothyroxine 50 mcg tablet 50 mcg PO QAM 08/04/22 prazosin 1 mg capsule 1 mg PO BEDTIME 08/04/22 atorvastatin 80 mg tablet 80 mg PO BEDTIME 04/19/23 clonidine HCl 0.1 mg tablet 0.1 mg PO BID 04/19/23 glipizide 5 mg tablet 5 mg PO BID 04/19/23 5 hydralazine 25 mg tablet 25 mg PO BID 04/25/23 amlodipine 5 mg tablet 5 mg PO DAILY 09/08/2309/28 clonazepam 2 mg tablet 2 mg PO BEDTIME 05/31/24 quetiapine 200 mg tablet,extended 200 mg PO BEDTIME 09/28/24 release 24 hr docusate sodium 100 mg capsule 100 mg PO DAILY PRN Con stipation 09/28/24 09/28/24 (Colace) oxycodone 5 mg tablet 5 mg PO BEDTIME PRN severe p ain 09/28/24 09/28/24 tirzepatide 5 mg/0.5 mL 5 mg subcut TU 10/02/24 070 04/28 subcutaneous pen injector (Yesenia) Previous Rx's ?Medication ?Instructions ?Recorded linaclotide 290 mcg capsule 290 mcg PO QAM 30 days #30 caps 08/19/23 (Linzess) omeprazole 40 mg capsule,delayed 40 mg PO DAILY #90 ca ps 10/17/23 release acetaminophen 500 mg tablet 500 mg PO Q6H PRN pain #30 tabs 07/22/24 (Tylenol Extra Strength) clonazepam 2 mg tablet (Klonopin) 2 mg PO BEDTIME #2 t abs 10/03/24 oxycodone 5 mg tablet 5 mg PO Q8H PRN pain #3 tabs 10/03/24 Allergies Allergy/AdvReac Type Severity Reaction Status Date / Time No Known Allergies (NO KNOWN Allergy Unknown UNKNOWN Verified 09/28/24 09:49 ALLERGIES) Review of Systems Review of Systems: As per HPI Yes all other systems are reviewed and are negative Constitutional: Constitutional: Reports as per HPI [facility] Past Medical History Medical History Dysuria Chronic kidney disease Diabetes 1.5, managed as type 2 HTN (hypertension) KIRSTIE (stress urinary incontinence, female) Urge incontinence Chronic idiopathic constipation GERD (gastroesophageal reflux disease) Irritable bowel syndrome with constipation Surgical History H/O tubal ligation Hx of section H/O: hysterectomy History of esophagogastroduodenoscopy (EGD) Hx of colonoscopy Family History Family History Father Family hx of prostate cancer Cancer Brother Cancer Mother HTN (hypertension) Maternal Aunt Skin cancer, Onset Age: 59 Social History Social History Household Members: None Alcohol intake: never Patient Tobacco Use Status: Never used Tobacco Smoked in Last 30 Days: No Advance Directives: Yes Advance Directives Information Provided: Yes Advance Directives on File: No Do you have a plan to hurt others: No Plan Current occupational status: disabled Physical Exam ED Vital Signs: Vital Signs - 24 hr 10/02/24 14:36 10/02/24 20:41 10/02/24 22:39 Temperature 97.8 F 98.5 F Pulse Rate 66 61 Respiratory Rate 18 Blood Pressure 119/66 128/66 121/66 Pulse Oximetry 93 95 Oxygen Delivery Method Room Air Room Air 10/03/24 05:17 10/03/24 06:00 Temperature 98.3 F Pulse Rate 65 Respiratory Rate 18 14 Blood Pressure 105/62 Pulse Oximetry 93 Oxygen Delivery Method Room Air BMI result Body Mass Index 30.3 Vital signs have been reviewed and appear to be correct. Blood pressure normal. Heart rate normal. Respiratory rate normal. Temperature normal. Oxygen saturation normal. Const General: cooperative, healthy appearing and no acute distress Orientation/consciousness: oriented to person, oriented to place, oriented to time and patient oriented x3 Limitations: no limitations HENMT Head: Yes normocephalic and Yes atraumatic Ears: external ears normal General nose exam: Normal external nose present Face and sinus: Yes face symmetric Mouth: oropharynx normal and moist mucous membranes Throat: Yes uvula midline Eyes Pupils: Equal, round and reactive pupils present Neck Neck: Yes normal visual inspection and Yes supple Resp Effort & Inspection: normal respiratory effort and able to speak in complete sentences Auscultation: clear to auscultation bilaterally Cardio Rate: regular rate Rhythm: regular rhythm Heart sounds: S1 normal heart sound present and S2 normal heart sound present GI Palpation (GI): Soft to palpation and nontender Auscultation: normoactive bowel sounds General: Yes no CVA tenderness Back/Spine/Pelvis Back: no CVA tenderness Thoracic/Lumbar Spine: thoracic and lumbar spine normal to inspection, pain with thoraco-lumbar ROM, thoraco-lumbar ROM limited (due to pain), No thoracic spinal tenderness and No lumbar spinal tenderness Skin General skin exam: elasticity normal and turgor normal Neuro General: oriented to person, oriented to place, oriented to time, patient oriented x3, moves all extremities, Normal light touch and pain sensation, no focal motor deficits, CN's II-XI intact bilaterally and deep tendon reflexes 2+ bilaterally Cranial nerves: Yes Equal, round and reactive pupils present Cognition (Neuro): normal cognition Motor exam (neuro): Abnormal motor strength present (4/5) right lower extremity Extrem General: Yes full ROM, Yes no pedal edema and Yes no calf tenderness Psych Mental Status: mental status grossly normal Affect: normal affect Thought process: Normal thought process present Course Course Course Narrative: Kavita Guzmán PA-C 09/29/2024 0837 ----> Observation continues. Case management continues to follow. 09/30/2024 0837 Kavita Guzmán PA-C ----> Observation continues. Case management continues to follow. Time: 08:09 Date: 10/01/24 Provider: SAIRA Layton Patient in physician observation for case management needs. No acute events reported overnight.? It was brought to my attention that patient has oxycodone ordered for bedtime use only, we will order oxycodone 5 mg Q 8 hours as needed for severe pain only. . VS stable. We will continue to monitor pending case management disposition. Time: 08:23 Date: 10/02/24 Provider: SAIRA Layton Patient in physician observation for case management needs. No acute events reported overnight.? Pending case management disposition. 10/03/2024 0951 Kavita Guzmán PA-C ---> Observation care revealed the the patient does not meet medical necessity for hospitalization. Final disposition discussed with the patient of discharge to [facility]. Patient completed observation care at 0950 on 10/03/2024, total time spent in observation care was 4 days, 18 hours, and 50 minutes. Reevaluation(s) Reevaluation #1: Patient reports pain has improved but is still present. Attempted to get patient out of bed with daughter. Patient was able to stand and bear weight while standing but was unable to take a few steps due to pain. Will order CT. Time: 12:51 Reevaluation #2: CT pelvis notable for no acute fractures or lesions. Will place patient on physician observation at this time for PT and CM evaluation. CT/CT pelvis wo IV con IMPRESSION: 1. No acute findings in the pelvis. There are no fractures or bone lesions. 2. There is sigmoid diverticulosis. There has been a hysterectomy. Time: 14:55 Medications Administered Generic Name Dose Route Start Last Admin Trade Name Freq PRN Reason Stop Dose Admin Acetaminophen 650 mg 09/29/24 08:35 10/01/24 14:06 Acetaminophen 325 Mg Tablet PO 650 mg RQ6H PRN Administration Pain, Mild (Pain Scale 1-3) Amlodipine Besylate 5 mg 09/29/24 09:00 10/02/24 09:27 Amlodipine Besylate 5 Mg Tablet PO 5 mg DAILY KRISTIE Administration Protocol Aspirin 81 mg 09/29/24 09:00 10/02/24 09:27 Aspirin Enteric Coated 81 Mg Tablet. PO 81 mg DAILY KRISTIE Administration Atorvastatin Calcium 80 mg 09/29/24 21:00 10/02/24 20:50 Atorvastatin Calcium 80 Mg Tablet PO 80 mg BEDTIME KRISTIE Administration Clonazepam 2 mg 09/28/24 22:00 10/02/24 20:51 Clonazepam 1 Mg Tablet PO 2 mg BEDTIME KRISTIE Administration Clonidine HCl 0.1 mg 09/28/24 22:00 10/02/24 20:51 Clonidine Hcl 0.1 Mg Tablet PO 0.1 mg BID KRISTIE Administration Protocol Fluoxetine HCl 60 mg 09/29/24 09:00 10/02/24 09:26 Fluoxetine Hcl 20 Mg Capsule PO 60 mg DAILY KRISTIE Administration Glipizide 5 mg 09/28/24 22:00 10/02/24 20:51 Glipizide 5 Mg Tablet PO 5 mg BID KRISTIE Administration Hydralazine HCl 25 mg 09/28/24 22:00 10/02/24 22:39 Hydralazine Hcl 25 Mg Tablet PO 25 mg BID KRISTIE Administration Protocol Hydrochlorothiazide 25 mg 09/29/24 09:00 10/02/24 11:17 Hydrochlorothiazide 25 Mg Tablet PO 25 mg DAILY KRISTIE Administration Levothyroxine Sodium 50 mcg 09/29/24 06:00 10/03/24 06:22 Levothyroxine Sodium 50 Mcg Tablet PO 50 mcg DAILY@0600 KRISTIE Administration Mirtazapine 45 mg 09/28/24 22:00 10/02/24 20:50 Mirtazapine 15 Mg Tablet PO 45 mg BEDTIME KRISTIE Administration Omeprazole 40 mg 09/29/24 06:30 10/03/24 06:22 Omeprazole 40 Mg Capsule.Dr PO 40 mg DAILY@0630 KRISTIE Administration Oxycodone HCl 5 mg 10/01/24 08:13 10/03/24 05:14 Oxycodone Hcl Immed Release 5 Mg Tablet PO 5 mg Q8H PRN Administration severe pain Prazosin HCl 1 mg 09/28/24 22:00 10/02/24 20:50 Prazosin Hcl 1 Mg Capsule PO 1 mg BEDTIME KRISTIE Administration Protocol Quetiapine Fumarate 100 mg 09/28/24 22:30 10/02/24 20:51 Quetiapine Fumarate 100 Mg Tablet PO 100 mg BID KRISTIE Administration Vitamin D 25 mcg 09/29/24 09:00 10/02/24 09:27 Cholecalciferol (Vitamin D3) 25 Mcg Tablet PO 25 mcg DAILY KRISTIE Administration Discontinued Medications Generic Name Dose Route Start Last Admin Trade Name Freq PRN Reason Stop Dose Admin Acetaminophen 650 mg 09/28/24 14:54 09/28/24 15:20 Acetaminophen 325 Mg Tablet PO 09/28/24 14:55 650 mg ONCE ONE Administration Hydromorphone HCl 1 mg 09/28/24 11:39 09/28/24 11:46 Hydromorphone Hcl 1 Mg/Ml Syringe IM 09/28/24 11:40 1 mg ONCE ONE Administration Protocol Lidocaine 1 patch 10/01/24 13:58 10/01/24 14:07 Lidocaine 4 % Patch Adh..Patch TRANSDERMA 10/01/24 13:59 1 patch ONCE ONE Administration Protocol Oxycodone HCl 5 mg 09/28/24 21:50 10/01/24 06:37 Oxycodone Hcl Immed Release 5 Mg Tablet PO 5 mg BEDTIME PRN Administration severe pain Prednisone 20 mg 09/28/24 11:39 09/28/24 11:46 Prednisone 20 Mg Tablet PO 09/28/24 11:40 20 mg ONCE ONE Administration Medical Decision Making Medical Decision Making [facility] Narrative: Patient is a 69-year-old Lao-speaking female with history of lumbar spondylosis, you would feel HTN, hypertensive nephropathy, CKD stage 4, Love, GERD, chronic idiopathic constipation presenting to the emergency department with complaint of pain radiating from right sacral area down her right leg. On exam patient is awake, A+Ox3, VS WNL, afebrile, normal neurological exam without focal deficits, physical exam findings as above. Given reported symptoms and physical exam findings, initial differential includes but is not limited to initial differential includes lumbar strain, lumbar radiculopathy, degenerative disc disease, disc herniation, spinal stenosis, spondylosis. Less likely vertebral fracture. Do not suspect malignancy/mass, SEA, cauda equina/cord compression. X-ray lumbar spine notable for multilevel spondylosis without acute fracture or listhesis. My interpretation is in agreement with the radiologist's interpretation. See course for remainder of clinical decision-making Differential Diagnosis Differential Diagnoses: The differential diagnosis associated with the presentation includes as per [facility] Admission/Observation Consideration of admission/observation: Escalation of care including admission/observation considered Lab Data Labs: Lab Results 09/28/24 09/29/24 09/29/24 Range/Units 22:33 07:52 12:44 POC Glucose 256 H 207 H 171 H (60-115) mg/dL 09/29/24 09/30/24 09/30/24 Range/Units 18:11 07:11 14:09 POC Glucose 195 H 132 H 190 H (60-115) mg/dL 09/30/24 10/01/24 10/01/24 Range/Units 17:42 13:44 16:18 POC Glucose 158 H 188 H 164 H (60-115) mg/dL 10/01/24 10/02/24 10/02/24 Range/Units 21:05 07:21 11:55 POC Glucose 177 H 158 H 208 H (60-115) mg/dL 10/02/24 10/02/24 10/03/24 Range/Units 17:09 20:30 07:56 POC Glucose 198 H 176 H 165 H (60-115) mg/dL Independent Interpretation I performed an independent interpretation of an: Plain X-Ray Interpretation: X-ray lumbar spine notable for multilevel spondylosis without acute fracture or listhesis. Radiology Impression Discussion of test interpretation with radiology: I have reviewed the rad iologist's reading. Radiologist Impression: XR/XR lumbar spine 2-3V IMPRESSION: Multilevel thoracolumbar spondylosis without acute fracture or gross listhesis. Atherosclerosis disease, aorta. Independent Historian Clinical information obtained from an independent historian. History obtained from or confirmed by: Other (daughter) External Record Review External record reviewed: Inpatient record, Office record and Outpatient record Discharge Plan Discharge Clinical Impression: Lower back pain Patient Disposition: er [facility] Transfer Details: [facility] Instructions: Acute Low Back Pain (ED) Additional Instructions: Follow up with your primary care provider. Return to the emergency department immediately if your symptoms worsen or if you develop any dizziness, shortness of breath, difficulty breathing, chest pain, blurry vision, loss of vision, nausea, vomiting, abdominal pain, fever, chills, back pain, or any other complaints. Alexander?seguimiento?con nassar m?dico de atenci?n primaria. Acuda inmediatamente al servicio de urgencias si aissatou s?ntomas empeoran o si presenta falta de aliento, dificultad para respirar, dolor tor?cico, mareos, aturdimiento, dolor de espalda, dolor abdominal, fiebre, escalofr?os o cualquier otro s?ntoma. Please see the information below about our Patient Portal. If you are not yet enrolled in the [facility] Patient Portal, you will receive an enrollment email invitation following your visit to any [facility] care setting. You may also self-enroll in the Patient Portal by visiting our website: [email or web address] The following information is required to access the Patient Portal: - Your [facility] Medical Record Number - Your personal home email address (must match what is in your electronic medical record, Registration staff can assist with this) - Name - Date of Capabilities of the Patient Portal: - Message some providers - View upcoming appointments - Access your health summary, medical history, and visit history - View current conditions and allergies - View procedure and lab results - View your medications, including guidelines, side effects, and precautions - Complete pre-appointment questionnaires requested by your provider - Ready summary reports of your office visits and procedures To access the Patient Portal Mobile [employer]ana, follow these directions: - Search [employer] in the [employer]ana Store or [email or web address] Store - Download the Shoshana - Search for [facility] - Enter your login/password Portal del paciente Si usted no esta inscrito en el portal de pacientes de [facility] y [facility], recibira rafaela invitacion de inscripcion despues de nassar visita al [facility] o al [facility] via correo electronico. Tambien puede inscribirse voluntariamente en el portal de pacientes visitando nuestra pagina web: [email or web address] La siguiente informacion sera requerida para acceder al portal: - Nassar annetta de historia medica de HM - Nassar direccion de correo electronico personal - Nombre - Fecha de nacimiento Capacidades: Las siguientes capacidades estan disponibles en el portal de pacientes: - Enviar mensajes a algunos doctores - Verificar proximas citas - Acceso a nassar historial de jennifer, registro medico e historial de visitas - Santi las condiciones actuales y alergias santi procedimientos y resultados del laboratorio - Santi aissatou medicamentos, incluyendo las pautas - Efectos secundarios y precauciones - Completar o llenar formularios / cuestionarios de - Citas solicitadas por nassar doctor - Leer los resumenes de reportes medicos de aissatou visitas y procedimientos Analia acceder a la aplicacion movil: - [facility] en la [employer]ana Store o [email or web address] Store - Descargue la aplicacion - [facility] - Ingrese nassar nombre de usuario / Contrasena Prescriptions: New oxycodone 5 mg tablet 5 mg PO Q8H PRN (Reason: pain) Qty: 3 0RF Rx Instructions: Partial Fill upon patient request. clonazepam [Klonopin] 2 mg tablet 2 mg PO BEDTIME Qty: 2 0RF Rx Instructions: administer 30 minutes before bedtime No Action Linzess 290 mcg capsule 290 mcg PO QAM 30 Days Qty: 30 6RF omeprazole 40 mg capsule,delayed release(DR/EC) 40 mg PO DAILY Qty: 90 2RF oxycodone 5 mg tablet 5 mg PO BEDTIME PRN (Reason: severe pain) docusate sodium [Colace] 100 mg capsule 100 mg PO DAILY PRN (Reason: Constipation) Mounjaro 5 mg/0.5 mL pen injector 5 mg subcut TU acetaminophen [Tylenol Extra Strength] 500 mg tablet 500 mg PO Q6H PRN (Reason: pain) Qty: 30 0RF aspirin [Adult Aspirin Regimen] 81 mg tablet,delayed release (DR/EC) 81 mg PO DAILY chlorthalidone 50 mg tablet 25 mg PO DAILY fluoxetine 20 mg capsule 60 mg PO QAM mirtazapine 45 mg tablet 45 mg PO BEDTIME amlodipine 5 mg tablet 5 mg PO DAILY cholecalciferol (vitamin D3) [Vitamin D3] 25 mcg (1,000 unit) capsule 25 mcg PO DAILY prazosin 1 mg capsule 1 mg PO BEDTIME levothyroxine 50 mcg tablet 50 mcg PO QAM hydralazine 25 mg tablet 25 mg PO BID clonidine HCl 0.1 mg tablet 0.1 mg PO BID atorvastatin 80 mg tablet 80 mg PO BEDTIME glipizide 5 mg tablet 5 mg PO BID clonazepam 2 mg tablet 2 mg PO BEDTIME quetiapine 200 mg tablet extended release 24 hr 200 mg PO BEDTIME Referrals: [facility] [Outside] Referral Note: Mateo GUY [place] [phone] Print Language: Lao
--- NOTE | 2024-09-28 11:14 | PC.NURSE ---
Pt ot ED 8 from triage, family at bedside. Resting in stretcher with no apparent s/s of distress. VSS, reports 10/10 back pain that interferes with ALD's.
--- OUTSIDE RECORDS SUMMARY | 2024-09-28 12:01 | XMS_ITS | Encounter Summary ---
Author Organization [employer] Address [address] [facility] 7t [place] [address] Care Team Providers Care Latent Fingerprint Examiner Name Role Phone Kathryn Jarquin MD Primary Care Provider [phone] Denis Rodgers PharmD Unavailable [phone] Reason for Visit * Reason Comments Med Refill Encounter Details Date Type Department Care Team ([facility] st Contact Info) Description 05/28/2024 Refill [facility] [address] [place], [place] [phone] Kathryn Jarquin MD [address] [place] [address] Upper back pain; Chronic pain of both [...] Upcoming Encounters Date Type Department Care Team ([facility] st Contact Info) Description 10/03/2024 2:00 PM EDT Medication Management [facility] [address] [place] [phone] Denis Rodgers, PharmD [address] [place] [address] 10/16/2024 11:00 AM EDT Office Visit [facility] OPTOMETRY [address] [place] [address] 10/30/2024 2:00 PM EDT Clinical Support [facility] MED & PEDS [address] [place] [address] Rhonda Valdez, DELFINA [address] [place] [address] 11/12/2024 1:00 PM EDT Office Visit [facility] [address] [place] [address] Kathryn Jarquin MD [address] [place] [address] documented as of this encounter Goals Goal [...] documented as of this encounter Care Teams Latent Fingerprint Examiner Relationship Specialty Start Date End Date Kathryn Jarquin MD [address] [place] [address] PCP - General Family Medicine 04/04/18 Denis Rodgers PharmD [address] [place] [address] Pharmacist Internal Medicine 10/22/22 documented as of this encounter
--- NOTE | 2024-09-28 17:25 | PC.NURSE ---
patient is max assist to the bathroom. refuses to use commode or bed calix at this time.
--- NOTE | 2024-09-28 17:41 | PC.NURSE ---
Pt attempted to ambulate from bathroom back to room, assist of 3x staff and wheeled walker and pt still unable to ambulate. Required use of wheeled chair back to stretcher. Able to stand pivot to stretcher with assist x 2. Pt agreed to use of bedside commode going forward
--- NOTE | 2024-09-28 17:55 | MHC.CM.ED ---
CM met with patient and son Jack with regards to discharge planning. Pt is Lithuanian speaking. patient attendant used. Pt lives alone. Has family help. SonJack is her IT COMPLIANCE ANALYST[employer] 14 hours/week. She uses a cane and a rollator. Has no other services. No HCP on file. HCP reviewed, completed and signed. Copies given. Uploaded into Care [facility] and [facility] HCP/son Jack Rodriguez [phone]. PCP and insurance verified. Address verified. PT is pending. Pt is willing to go to STR if recommended. Local referrals placed. [facility] insurance. SonJack requests telephone call with STR choices. CM will follow for discharge planning
--- NOTE | 2024-09-28 18:07 | MHC.EDTECH ---
Patient given dinner tray
--- NOTE | 2024-09-28 19:14 | PC.NURSE ---
assumed care of patient, resting quietly in stretcher with family at bedside
--- NOTE | 2024-09-28 22:11 | MHC.EDTECH ---
Patient used commode
--- NOTE | 2024-09-28 22:14 | PHA.MEDREC ---
Pharmacy Consult ? Medication Reconciliation Pharmacy has REVIEWED the medication reconciliation DONE BY NURSING USING CLAIMS HISTORY AND MEDICAL RECORDS.
[2024-09-28 22:37] LABS: Glucose, Whole Blood 256 mg/dL (60-115)
[2024-09-28] MEDS: oxyCODONE HCl Immed Release 5 MG TABLET PO (22:42)
[2024-09-29] VITALS (7 sets, daily range): BP systolic 117–146; BP diastolic 61–76; PULSE 60–74; RESP 14–16; TEMP 36.4–36.6; O2SAT 92–95
--- NOTE | 2024-09-29 07:11 | PC.NURSE ---
Resumed care of patient at 0700, she is currently resting comfortably in bed at this time, call kelley within reach, all needs met at this time.
[2024-09-29 08:00] LABS: Glucose, Whole Blood 207 mg/dL (60-115)
[2024-09-29] MEDS: Aspirin Enteric Coated 81 MG TABLET.DR PO (08:18)
--- NOTE | 2024-09-29 10:29 | MHC.CM.PN ---
Addendum entered by Lauren Jane 09/29/24 12:10: Bed offer from [facility] accepted by patient and son Jack, pending insurance auth now. Original Note: PT evaluated pt and is recommending STR, STR referral updated in [facility], awaiting a STR bed offer.
[2024-09-29 12:50] LABS: Glucose, Whole Blood 171 mg/dL (60-115)
--- NOTE | 2024-09-29 14:46 | PC.NURSE ---
Family to bring in Linzess for pt as [facility] does not stock medication.
--- NOTE | 2024-09-29 14:57 | PC.NURSE ---
Pt has good PO intake at this time
[2024-09-29 18:20] LABS: Glucose, Whole Blood 195 mg/dL (60-115)
[2024-09-29] MEDS: oxyCODONE HCl Immed Release 5 MG TABLET PO (19:31)
[2024-09-30] VITALS (9 sets, daily range): BP systolic 101–150; BP diastolic 59–79; PULSE 63–76; RESP 15–20; TEMP 36.2–36.6; O2SAT 92–95
[2024-09-30] MEDS: oxyCODONE HCl Immed Release 5 MG TABLET PO ×2 (06:21→22:29)
[2024-09-30 07:17] LABS: Glucose, Whole Blood 132 mg/dL (60-115)
[2024-09-30] MEDS: Aspirin Enteric Coated 81 MG TABLET.DR PO (08:04)
--- NOTE | 2024-09-30 08:11 | PC.NURSE ---
patient a&ox2, rings appropriately, oob with assist to bedside commode, with movement pt had c/o rt leg/low back pain which she was previously medicated for, rr equal/non labored- lungs clear, pt meds whole with water-medicated per order, vss, call kelley within reach, plan of care ongoing
[2024-09-30 14:15] LABS: Glucose, Whole Blood 190 mg/dL (60-115)
[2024-09-30 17:47] LABS: Glucose, Whole Blood 158 mg/dL (60-115)
--- NOTE | 2024-09-30 22:32 | PC.NURSE ---
assist pt with clean up after BM on commode. pt medicated per JUN for hip pain
[2024-10-01] MEDS: oxyCODONE HCl Immed Release 5 MG TABLET PO ×4 (06:37→23:11)
[2024-10-01 06:38] VITALS: BP 125/71; PULSE 74; RESP 18; TEMP 36.6; O2SAT 92
--- NOTE | 2024-10-01 06:58 | PC.NURSE ---
pt presents to ED for back pain, PT/CM placement for [facility] pending insurance auth. a/o x3, frisian speaking only, calm and cooperative with care, in hospital bed, commode at bedside. VSS. oxycodone for pain.
[2024-10-01] MEDS: Aspirin Enteric Coated 81 MG TABLET.DR PO (08:39)
--- NOTE | 2024-10-01 10:30 | PC.NURSE ---
Pt c/o 11/11 back pain, towards R hip. Pt ambulated to commode but was a bit unsteady on her feet, had to be cleaned up and gotten back into bed. Pt denies any CP or SOB, RR even and unlabored
[2024-10-01 13:37] VITALS: BP 132/76; PULSE 74; RESP 18; TEMP 36.7; O2SAT 93
[2024-10-01] MEDS: Lidocaine 4 % Patch ADH..PATCH 1 PATCH TRANSDERMA (14:07)
[2024-10-01 16:21] LABS: Glucose, Whole Blood 188 mg/dL (60-115)
[2024-10-01 16:21] LABS: Glucose, Whole Blood 164 mg/dL (60-115)
[2024-10-01 21:08] LABS: Glucose, Whole Blood 177 mg/dL (60-115)
[2024-10-01 21:58] VITALS: BP 132/76
[2024-10-01 21:59] VITALS: BP 132/76
[2024-10-01 22:00] VITALS: BP 119/67; PULSE 67; RESP 14; TEMP 36.8
--- NOTE | 2024-10-01 22:08 | PC.NURSE ---
Report received and care assumed at 1900. Pt has been resting in her bed, noted to be occassionally on the phone. she has not wrung and reports chronic 10/10 back pain that is s/t arthritis. Pt aware that PRN medication is not due at this time and is requesting she be medicated when available. She otherwise offers no complaints at this time, needs continue to be met and staff will continue to monitor.
[2024-10-02 06:00] VITALS: BP 123/66; PULSE 67; RESP 20; TEMP 36.6; O2SAT 91
[2024-10-02 07:25] LABS: Glucose, Whole Blood 158 mg/dL (60-115)
[2024-10-02 09:26] VITALS: O2SAT 94
[2024-10-02] MEDS: Aspirin Enteric Coated 81 MG TABLET.DR PO (09:27)
[2024-10-02] MEDS: oxyCODONE HCl Immed Release 5 MG TABLET PO ×2 (11:17→20:51)
--- NOTE | 2024-10-02 11:41 | MHC.CM.ED ---
Patient remains in ER overflow. Patient will go to [facility] when ins auth is obtained. Per Becky, additional clinical needed to be submitted for auth. Still waiting for auth. Patient and son Jack aware. Continue to monitor for d/c needs.
[2024-10-02 11:59] LABS: Glucose, Whole Blood 208 mg/dL (60-115)
[2024-10-02 14:36] VITALS: BP 119/66; PULSE 66; TEMP 36.6; O2SAT 93
--- NOTE | 2024-10-02 16:28 | PC.NURSE ---
Assumed care of pt at 0700. Pt alert and oriented, states pain 8/10 managed w oxi, family in room. Pt will ask family to bring in 1x/week medication from home for pharmacy ([facility]) to verify. Pt stable and calm
[2024-10-02 17:12] LABS: Glucose, Whole Blood 198 mg/dL (60-115)
[2024-10-02 20:33] LABS: Glucose, Whole Blood 176 mg/dL (60-115)
[2024-10-02 20:41] VITALS: BP 128/66; PULSE 61; RESP 18; TEMP 36.9; O2SAT 95
[2024-10-02 22:39] VITALS: BP 121/66
[2024-10-03] MEDS: oxyCODONE HCl Immed Release 5 MG TABLET PO (05:14)
[2024-10-03 05:17] VITALS: BP 105/62; PULSE 65; RESP 18; TEMP 36.8; O2SAT 93
--- NOTE | 2024-10-03 05:53 | PC.NURSE ---
patient unsteady due to pain. Bed alarm on.
[2024-10-03 06:00] VITALS: RESP 14
[2024-10-03 08:02] LABS: Glucose, Whole Blood 165 mg/dL (60-115)
--- NOTE | 2024-10-03 09:22 | MHC.CM.ED ---
Patient remains in ER overflow. Patient can transfer to [facility]. [facility] PR[facility] booked for 11am. [facility] with chart. Patient, son Mecca Santiago RN and Kavita CHÁVEZ aware. Continue to monitor for d/c needs.
[2024-10-03] MEDS: Aspirin Enteric Coated 81 MG TABLET.DR PO (10:23)
[2024-10-03 10:24] VITALS: BP 104/63
== END 2024-10-03 11:14 | disposition skilled nursing facility (03) ==
PROVIDERS: Emergency Provider Emergency Medicine; PCP Family Medicine
DX: M54.50 Low back pain, unspecified (principal); K57.30 Diverticulosis of large intestine without perforation or abscess without bleeding; M47.816 Spondylosis without myelopathy or radiculopathy, lumbar region; E11.22 Type 2 diabetes mellitus with diabetic chronic kidney disease; I12.9 Hypertensive chronic kidney disease with stage 1 through stage 4 chronic kidney disease, or unspecified chronic kidney disease; N18.4 Chronic kidney disease, stage 4 (severe); Z90.710 Acquired absence of both cervix and uterus; Z79.899 Other long term (current) drug therapy
CPT/HCPCS: 72100; 72192; 82947; 97162; 99285; J1171

== ENCOUNTER → 2024-09-28 09:55 | Outpatient (BNV) | payer OTHER, SELFPAY | PROVIDERS: Emergency Provider Emergency Medicine; PCP Family Medicine; Visit Provider Radiology Diagnostic Radiology | DX: K57.30 Diverticulosis of large intestine without perforation or abscess without bleeding (principal); Z90.710 Acquired absence of both cervix and uterus; M47.815 Spondylosis without myelopathy or radiculopathy, thoracolumbar region; M54.50 Low back pain, unspecified; I70.0 Atherosclerosis of aorta | CPT/HCPCS: 72100; 72192 ==

== ENCOUNTER 2024-10-11 06:41 | Outpatient (REF) | payer OTHER, SELFPAY ==
--- OUTSIDE RECORDS SUMMARY | 2024-10-11 06:43 | XMS_ITS | Encounter Summary ---
Author Organization [employer] Address [address] [facility] 7t [place] [address] Care Team Providers Care Production Team Advisor Name Role Phone Kathryn Jarquin MD Primary Care Provider [phone] Denis Rodgers PharmD Unavailable [phone] Reason for Visit * Reason Comments Med Refill Encounter Details Date Type Department Care Team ([facility] st Contact Info) Description 05/28/2024 Refill [facility] MEDICINE [address] [place] [address] Kathryn Jarquin MD [address] [place] [address] Upper back pain; Chronic pain of both [...] Care Team (Late st Contact Info) Description 10/16/2024 11:00 AM EDT Office Visit [facility] OPTOMETRY [address] [place] [address] 10/30/2024 2:00 PM EDT Clinical Support [facility] CHC MED & PEDS [address] [place] [address] Rhonda Valdez, DELFINA [address] [place] [address] 11/12/2024 1:00 PM EDT Office Visit [facility] MEDICINE [address] [place] [address] Kathryn Jarquin MD [address] [place] [address] documented as of this encounter Goals Goal Patient Goal Type Associated Problems Recent Progress Patient-Stated? Author Blood Pressure < 140/90 Blood Pressure 130/72( 025 2:44 PM EDT) Denis Watkins, Swapnil documented as of this encounter Visit Diagnoses Diagnosis Upper back pain Unspecified backache Chronic pain of both knees Chronic female pelvic pain Unspecified symptom associated with female genital organs Chronic pain syndrome documented in this encounter Additional Health Concerns Assessment Noted Time PHQ-9 Depression Total Score: 12 024 10:26 AM EST documented as of this encounter Care Teams Production Team Advisor Relationship Specialty Start Date End Date Kathryn Jarquin MD [address] [place], [place] [phone] PCP - General Family Medicine 04/04/18 Denis Rodgers, NamitaD [address] [place] [address] Pharmacist Internal Medicine 10/22/22 documented as of this encounter
--- OUTSIDE RECORDS SUMMARY | 2024-10-11 06:43 | XMS_ITS | Clinical Summary ---
Author Organization [facility] Address [address] [facility] [address] [place] [address] Phone Care Team Providers Care Compliance Nurse Name Role Phone Kathryn Jarquin MD Primary Care Provider [phone] Allergies No known active allergies Active Problems [...] Last Assessment & Plan: -follow up with health and safety instructor -avoid nephrotoxic drugs -adjust medication: metformin ER [...] (2 of 2 - PCV) 11/12/2009 11/12/2008 Influenza Vaccine (#1) 2024 , 02/21/2020, 04/16/2019, Additional history exists Hepatitis B Vaccine Aged Out 06/27/2014, 02/18/2014, 08/20/2013 No longer eligible based on patient's age to complete this topic Insurance [facility] One Care Dual SNP ([id number]) [place] [address] Care Teams Compliance Nurse Relationship Specialty Start Date End Date Kathryn Jarquin MD [address] [place] [address] PCP - General Family Medicine 08/31/23
--- OUTSIDE RECORDS SUMMARY | 2024-10-11 06:43 | XMS_ITS | Data Portability ---
Author Organization [facility], Main Office Address [address] [facility] [place] [address] Care Team Providers Care Heavy Equipment Operator Apprentice Name Role Phone [facility] OTHER Assessment No assessment recorded. Plan of Treatment Reminders Order Date Submit Date Provider Last Modified By Organization Details Last Modified Time Details Appointments None record ed. Lab None record ed. Referral None record ed. Procedures None record ed. Surgeries None record ed. Imaging None record ed. Medication Orders None record ed. Patient TargetsNo targets recorded. Patient InstructionsNo instructions recorded. Reason for Referral None Reported. Problems Name Problem SNOMED Code Status Onset Date Resolution Date Notes Provider Name and Address Organization Details Recorded Time Type 2 diabetes mellitus without complication 260744791 Active 2024 Not Available [facility] 16:22:55 Essential hypertension 01284734 Active 2024 Not Available [facility] 16:14:24 Gastroesophag eal reflux disease without esophagitis 362228517 Active 2024 Not Available [facility] 16:15:22 Irritable bowel syndrome characterized by constipation 685238611 Active 2024 Not Available [facility] 16:15:24 Backache 834210193 Active 2024 Not Available [facility] 16:22:56 Pain in right lower limb 318050023 Active 2024 Not Available [facility] 16:22:58 Chronic kidney disease stage 4 600479502 Active 2024 Not Available [facility] 16:20:00 Muscle weakness 43912249 Active 2024 Not Available [facility] 16:39:11 Difficulty walking 258023138 Active 2024 Not Available [facility] 16:40:09 Problem Notes None recorded. Medical Equipment None Reported. Medications Name Sig Start Date Stop Date Status Note LastModified by Organization Details LastModified Time clonidine HCl 0.1 mg tablet Give 1 tablet by mouth two times a day for Headache May cause drowsines s, avoid alcohol 2024 active Not Available Not Available Not Avai lable prazosin 1 mg capsule Give 1 mg by mouth at bedtime for Headache 2024 active Not Available Not Available Not Avai lable Lipitor 80 mg tablet Give 1 tablet by mouth in the evening for Nausea and Vomiting Avoid grapefrui t juice 2024 active Not Available Not Available Not Avai lable amlodipine 5 mg tablet Give 1 tablet by mouth one time a day for Pain 2024 active Not Available Not Available Not Avai lable omeprazole 40 mg capsule,del ayed release Give 1 capsule by mouth in the morning for Constipat ion Take on empty stomach. Do not crush. May be opened and sprinkled on applesauc e. 2024 active Not Available Not Available Not Avai lable quetiapine 100 mg tablet Give 1 tablet by mouth two times a day for Increased Anxiety May cause drowsines s. Avoid alcohol. 2024 active Not Available Not Available Not Avai lable Sarafem 20 mg capsule Give 60 mg by mouth one time a day for Increased Anxiety 2024 active Not Available Not Available Not Avai lable levothyroxi ne 50 mcg tablet Give 1 tablet by mouth in the morning for Risk for Malnutrit ion on an empty stomach, at least 30 minutes before food.Do not give within 4 hours of iron or calcium avoid aluminum containin g antacids, and MVI w min 2024 active Not Available Not Available Not Avai lable Esidrix 25 mg tablet Give 1 tablet by mouth one time a day for Headache 2024 active Not Available Not Available Not Avai lable Ceberclon 1 mg tablet Give 2 mg by mouth at bedtime for Increased Anxiety May cause drowsines s, avoid alcohol 2024 active Not Available Not Available Not Avai lable mirtazapine 15 mg tablet Give 45 mg by mouth in the evening for Increased Anxiety Recommend in the evening prior to sleep. May cause drowsines s. Avoid alcohol. 2024 active Not Available Not Available Not Avai lable Laxative (sennosides ) 8.6 mg tablet Give 1 tablet by mouth every 24 hours as needed for Constipat ion 2024 active Not Available Not Available Not Avai lable glipizide 5 mg tablet Give 1 tablet by mouth one time a day for Constipat ion Give before meals 2024 active Not Available Not Available Not Avai lable Apresoline 25 mg tablet Give 25 mg by mouth two times a day for Risk for Malnutrit ion 2024 active Not Available Not Available Not Avai lable Deltasone 50 mg tablet Give 50 mg by mouth one time a day for 5 Days 10/15 completed Not Available Not Available Not Available oxycodone 5 mg tablet Give 1 tablet by mouth every 8 hours as needed for Pain May cause drowsines s. Avoid alcohol. 2024 active Not Available Not Available Not Avai lable Adult Low Dose Aspirin 81 mg tablet,nate yed release Give 1 tablet by mouth one time a day for Pain Take with full glass of water, do not crush. Monitor for bleeding, bruising, and black tarry stools. Give with food to minimize GI irritatio n 2024 active Not Available Not Available Not Avai lable Vitamin D3 25 mcg (1,000 unit) tablet Give 25 mcg by mouth one time a day for Risk for Malnutrit ion 2024 active Not Available Not Available Not Avai lable sodium phosphates 19 gram-7 gram/197 mL enema Insert 1 unit rectally every 24 hours as needed for Constipat ion Use only if Bisacodyl Supposito ry is ineffecti ve 2024 active Not Available Not Available Not Avai lable Vitals None Recorded Social History None recorded. Functional Status None recorded. Mental Status None recorded. Family History Nothing Reported. Medical History No medical history recorded. Gynecological HistoryNo gynecological history recorded. Obstetrics History GPAL:G 0 P 0 0 0 0 Past Encounters Encounter ID Performer Location Encounter Start Date Encounter Closed Date Diagnosis/Indication Diagnosis SNOMED-CT Code Diagnosis ICD10 Code Diagnosis Note [id number] QUINTIN KLINE [address] [place], [place] [id number] 10/04/2024 08:47:45 10/10/2024 14:07:41 Acute back pain with sciatica 701491446 M54.41 with trouble ambulating dt painadmit to PT OTtylenol for paincont oxy 5 mg q8h prnmonitor painphysio logy provider to follow Irritable bowel syndrome characterized by constipation 175520004 K58.1 cont home medlnactol blas 290 mcg dailymonit or bowels Type 2 joel betes mellitus 24346543 E11.8 glipizide 5mg dailymonit or accuchecks Mixed hyperlipidemia 267 306235 E78.2 cont atorvastat inlipids outpt Essential hypertension 37879293 I10 cont amlodipine 5mg dailycont hydralazin e 25mg bidcont clonidine 0.1mg bidcont HCTZ 25mg dailymonit or BP and labs Gastroesop hageal reflux disease 220917542 K21.9 chroniccon t omeprazole dailymonit or ss Diverticular disease [address] finding in recent admissionc onsider outpt follow up Acquired hypothyroidism 178251278 E03.9 levothyrox ine 50 mcg dailythyro id panel outpt Mood disorder 45622429 F 39 cont home medsfluoxe dragan 60 mg dailyqueti apine 100 mg bidprazosi n 1 mg qhsclonaze keisha 2 mg qhsmonitor mood and affectpsyc h eval prn Health Concerns Section Related Observation LastModified by Organization Detai ls LastModified Time None Recorded Concern Status LastModified by Organization Details LastModified Time None Recorded Advance Directives Directive None Recorded Payers Insurance Date Sequence Insurance Name Policy Number Policy Murphy Covered Member ID Murphy Member ID Guarantor Name 10/10/2024 1 [facility] - DOS ON OR AFTER 2022 - MEDICARE ADVANTAGE [place] (MEDICARE REPLACEMENT/ADV ANTAGE - PPO) Wen Moran [id number] Wen Moran Notes Date Note Type Note Provider Name and Address Organization Details Recorded Time 10/04/2024 text/html Pt is a 69 yo female being seen for initial intake. She presented to the ED for severe right sided sciatica pain despite narcotic use. Imaging showed spondylosis without acute process. Because pt lives alone and unable to ambulate she was seen by PT with recs for STR. Pt seen today. She is having pain but its controlled with current regimen. No acute concerns per nursing. She is being admitted to PT OT services. PMH HTN, CKD 4, WILLETT / GERD / idiopathic constipation CARLENE GU, CHAD-C [address] [facility], [address], [place], [address], [facility] Medicine [facility] 10/09/2024 22:07:38 OBGyn Episode No OBEpisode recorded.
== END 2024-10-11 06:42 | disposition home or self-care (01) ==
LOC: CF 06:41
PROVIDERS: Visit Provider Internal Medicine
DX: Z13.89 Encounter for screening for other disorder (principal)

== ENCOUNTER 2024-11-07 11:32 | Outpatient (REF) | payer OTHER, SELFPAY ==
--- NOTE | ~2024-11-07 | MM_ITS ---
EXAMINATION: MM SCREENING DIGITAL BREAST TOMOSYNTHESIS, BILATERAL CLINICAL INFORMATION: Screening. Asymptomatic. COMPARISON: Comparison made to multiple prior, most recent September 10, 2022, and most remote January 25, 2018. TECHNIQUE: Digital breast tomosynthesis is performed in both the craniocaudal and mediolateral oblique views along with computer-aided detection (CAD). FINDINGS: BREAST COMPOSITION: The breasts are heterogeneously dense, which may obscure small masses (ACR BI-RADS breast composition Category c). BILATERAL BREASTS: No significant masses, suspicious calcifications or other abnormalities are seen in either breast. MM/MM tomosynthesis screening BI IMPRESSION: BILATERAL BREASTS: Negative, no mammographic evidence of malignancy. Normal interval follow-up is recommended in 12 months. ASSESSMENT: BI-RADS 1 - Negative RECOMMENDATION: Routine annual mammography screening. FOLLOW-UP: 1 year F/U This examination should not preclude the clinical evaluation of a suspicious palpable abnormality. This patient's information was entered into a reminder system with a target due date for their next mammogram. Electronically signed by: Neal Fields MD 11/17/2024 06:17 PM EDT
--- OUTSIDE RECORDS SUMMARY | 2024-11-07 12:20 | XMS_ITS | Clinical Summary ---
Author Organization [facility] Address [address] [facility] [address] [place] [address] Phone Care Team Providers Care Community Support Worker Name Role Phone Kathryn Jarquin MD Primary Care Provider [phone] Allergies No known active allergies Active Problems [...] Last Assessment & Plan: -follow up with science editor -avoid nephrotoxic drugs -adjust medication: metformin ER [...] patient's age to complete this topic Insurance [facility] One Care Dual SNP ([id number]) [place] [address] Care Teams Community Support Worker Relationship Specialty Start Date End Date Kathryn Jarquin MD [address] [place] [address] PCP - General Family Medicine 08/31/23
--- OUTSIDE RECORDS SUMMARY | 2024-11-07 12:20 | XMS_ITS | Encounter Summary ---
Author Organization [employer] Address [address] [facility] 7t [place] [address] Care Team Providers Care Professor Of Theatre Name Role Phone Kathryn Jarquin MD Primary Care Provider [phone] Denis Rodgers PharmD Unavailable [phone] Reason for Visit * Reason Comments Med Refill Encounter Details Date Type Department Care Team ([facility] st Contact Info) Description 05/28/2024 Refill [facility] MEDICINE [address] [place], [place] [phone] Kathryn Jarquin MD [address] [place] [address] Upper back pain; Chronic pain of both [...] Upcoming Encounters Date Type Department Care Team ([facility] st Contact Info) Description 11/12/2024 1:00 PM EDT Office Visit [facility] MEDICINE [address] [place] [phone] Kathryn Jarquin MD [address] [place] [address] 12/04/2024 2:30 PM EDT Clinical Support [facility] MED & PEDS [address] [place] [address] Rhonda Valdez, DELFINA [address] [place] [address] 12/10/2024 3:00 PM EDT Medication Management [facility] [address] [place] [id number] Denis Rodgers, PharmD [address] [place] [address] documented as of this encounter Goals Goal Patient Goal Type Associated Problems Recent Progress Patient-Stated? Author Blood Pressure < 140/90 Blood Pressure 134/74( 025 4:06 PM EDT) No Denis Rodgers, PharmD documented [...] documented as of this encounter Care Teams Professor Of Theatre Relationship Specialty Start Date End Date Kathryn Jarquin MD [address] [place] [address] PCP - General Family Medicine 04/04/18 Denis Rodgers, NamitaD [address] [place] [address] Pharmacist Internal Medicine 10/22/22 documented as of this encounter
== END 2024-11-07 11:33 | disposition home or self-care (01) ==
LOC: HO.MAMMO 11:32
PROVIDERS: PCP Family Medicine; Visit Provider Family Medicine
DX: Z12.31 Encounter for screening mammogram for malignant neoplasm of breast (principal)
CPT/HCPCS: 77063; 77067

== ENCOUNTER → 2024-11-07 12:00 | Outpatient (BNV) | payer OTHER, SELFPAY | PROVIDERS: PCP Family Medicine; Visit Provider Radiology Body Imaging | DX: Z12.31 Encounter for screening mammogram for malignant neoplasm of breast (principal) | CPT/HCPCS: 77063; 77067 ==

== ENCOUNTER 2024-11-29 08:16 | Outpatient (REF) | payer OTHER, SELFPAY ==
--- OUTSIDE RECORDS SUMMARY | 2024-11-29 08:47 | XMS_ITS | Clinical Summary ---
Author Organization [facility] Address [address] [facility] [address] [place] [address] Phone Care Team Providers Care Beautician Apprentice Name Role Phone Kathryn Jarquin MD Primary Care Provider [phone] Allergies No known active allergies Active Problems [...] Last Assessment & Plan: -follow up with records management analyst -avoid nephrotoxic drugs -adjust medication: metformin ER [...] patient's age to complete this topic Insurance [facility] One Care Dual SNP ([id number]) [place] [address] Care Teams Beautician Apprentice Relationship Specialty Start Date End Date Kathryn Jarquin MD [address] [place] [address] PCP - General Family Medicine 08/31/23
--- OUTSIDE RECORDS SUMMARY | 2024-11-29 08:47 | XMS_ITS | Encounter Summary ---
Author Organization [employer] Address [address] [facility] 7t [place] [address] Care Team Providers Care Javascript Ui Developer Name Role Phone Kathryn Jarquin MD Primary Care Provider [phone] Denis Rodgers PharmD Unavailable [phone] Encounter Details Date Type Department Care Team ([facility] st Contact Info) Description 10/01/2024 Results Follow-Up [facility] MEDICINE 230 [place] [address] Kathryn Jarquin MD 230 [place] [address] Glucose, Whole Blood, Glucose, Whole Blood Social History Tobacco Use Types Packs/Day Years Used Date Smoking Tobacco: Former Cigarettes Passive Smoke Exposure: Past Smokeless Tobacco: Never Depression Answer Date Recorded Patient Health Questionnaire-9 Score 12 03/29/2024 Patient Health Questionnaire-9 Score 12 03/29/2024 Last PHQ-9: Questionnaire Data Not on file 1 05/30/2023 Housing Stability Answer Date Recorded What is your housing situation today? I have skinny lepe 08/07/[address] you li [...] Upcoming Encounters Date Type Department Care Team ([facility] st Contact Info) Description 12/04/2024 2:30 PM EDT Clinical Support [facility] CHC MED & PEDS 505 [place] [address] Rhonda Valdez, DELFINA 505 [place] [address] 12/10/2024 3:00 PM EDT Medication Management [facility] MEDICINE 230 [place] [address] Denis Rodgers, PharmD 230 [place] [address] 02/22/2025 1:45 PM EST Office Visit [facility] OPTOMETRY [address] [place] [address] TarkaFrancesca, OD 267 [place] [address] documented as of this encounter Goals Goal [...] documented as of this encounter Care Teams Javascript Ui Developer Relationship Specialty Start Date End Date Kathryn Jarquin MD 230 [place] [address] PCP - General Family Medicine 04/04/18 Denis Rodgers, NamitaD 230 [place] [address] Pharmacist Internal Medicine 10/22/22 documented as of this encounter
--- OUTSIDE RECORDS SUMMARY | 2024-11-29 08:47 | XMS_ITS | Encounter Summary ---
Author Organization [employer] Address 75 [facility] 7t [place] [address] Care Team Providers Care Technical Adjuster Name Role Phone Kathryn Jarquin MD Primary Care Provider [phone] Denis Rodgers PharmD Unavailable [phone] Encounter Details Date Type Department Care Team ([facility] st Contact Info) Description 09/30/2023 Orders Only [facility] MEDICINE 230 [place], [place] [phone] Kathryn Jarquin MD 230 [place], [place] [phone] Social History Tobacco Use Types Packs/Day Years [...] Care Team (Late st Contact Info) Description 12/04/2024 2:30 PM EDT Clinical Support [facility] CHC MED & PEDS [address] [place] [address] Rhonda Valdez, RN 505 [place] [address] 12/10/2024 3:00 PM EDT Medication Management [facility] MEDICINE 230 [place] [address] Denis Rodgers, PharmD 230 [place] [address] 02/22/2025 1:45 PM EST Office Visit [facility] OPTOMETRY 267 [place] [address] Tarka, Francesca, OD 267 [place] [address] documented as of this encounter Goals Goal Patient Goal Type Associated Problems Recent Progress Patient-Stated? Author Blood Pressure < 140/90 Blood Pressure 134/74( 025 4:06 PM EDT) No Denis Rodgers, PharmMirela documented as of this encounter Visit Diagnoses Not on filedocumented in this encounter Care Teams Technical Adjuster Relationship Specialty Start Date End Date Kathryn Jarquin MD [address] [place] [address] PCP - General Family Medicine 04/04/18 Denis Rodgers, PharmD [address] [place] [address] Pharmacist Internal Medicine 10/22/22 documented as of this encounter
--- OUTSIDE RECORDS SUMMARY | 2024-11-29 08:47 | XMS_ITS | Encounter Summary ---
Author Organization [employer] Address [address] [facility] 7t [place] [address] Care Team Providers Care Materials Research Engineer Name Role Phone Kathryn Jarquin MD Primary Care Provider [phone] Denis Rodgers PharmD Unavailable [phone] Reason for Visit * Reason Comments Med Refill Encounter Details Date Type Department Care Team ([facility] st Contact Info) Description 11/28/2024 Refill [facility] MEDICINE 230 [place], [place] [phone] Kathryn Jarquin MD 230 [place], [place] [phone] Social History Tobacco Use Types Packs/Day Years [...] Access Q2 Not on file 12/05/2023 Comments No Sex and Gender Information Value Date Recorded Sex Assigned at Female 02/01/2022 10:14 AM EDT Legal Sex Female 10:14 AM EDT Gender Identity Female 02/01/2022 10:14 AM EDT Sexual Orientation Straight 02/01/2022 10 :14 AM EDT documented as of this encounter Plan of Treatment Upcoming Encounters Date Type Department Care Team ([facility] st Contact Info) Description 12/04/2024 2:30 PM EDT Clinical Support [facility] CHC MED & PEDS 505 [place] [address] Rhonda Valdez, DELFINA 505 [place] [address] 12/10/2024 3:00 PM EDT Medication Management [facility] MEDICINE 230 [place] [address] Denis Rodgers, PharmD 230 [place] [address] 02/22/2025 1:45 PM EST Office Visit [facility] OPTOMETRY [address] [place] [address] Francesca Martinez, OD 267 [place] [address] documented as of this encounter Goals Goal [...] documented as of this encounter Care Teams Materials Research Engineer Relationship Specialty Start Date End Date Kathryn Jarquin MD 230 [place] [address] PCP - General Family Medicine 04/04/18 Denis Rodgers, NamitaD 230 [place] [address] Pharmacist Internal Medicine 10/22/22 documented as of this encounter
--- OUTSIDE RECORDS SUMMARY | 2024-11-29 08:47 | XMS_ITS | Encounter Summary ---
Author Organization [employer] Address [address] [facility] 7t [place] [address] Care Team Providers Care Fund Development Manager Name Role Phone Kathryn Jarquin MD Primary Care Provider [phone] Denis Rodgers PharmD Unavailable [phone] Reason for Visit * Reason Comments Med Refill Encounter Details Date Type Department Care Team ([facility] st Contact Info) Description 05/28/2024 Refill [facility] MEDICINE 230 [place], [place] [phone] Kathryn Jarquin MD 230 [place] [address] Upper back pain; Chronic pain of both [...] Upcoming Encounters Date Type Department Care Team ([facility] st Contact Info) Description 12/04/2024 2:30 PM EDT Clinical Support [facility] CHC MED & PEDS 505 [place] [address] Rhonda Valdez, RN 505 [place] [address] 12/10/2024 3:00 PM EDT Medication Management [facility] MEDICINE 230 [place] [address] Denis Rodgers, PharmD 230 [place] [address] 02/22/2025 1:45 PM EST Office Visit [facility] OPTOMETRY 267 [place] [address] TarkaFrancesca, OD 267 [place] [address] documented as of this encounter Goals Goal [...] documented as of this encounter Care Teams Fund Development Manager Relationship Specialty Start Date End Date Kathryn Jarquin MD 230 [place] [address] PCP - General Family Medicine 04/04/18 Denis Rodgers, NamitaD 230 [place] [address] Pharmacist Internal Medicine 10/22/22 documented as of this encounter
--- OUTSIDE RECORDS SUMMARY | 2024-11-29 08:47 | XMS_ITS | Encounter Summary ---
Author Organization [employer] Address [address] [facility] 7t [place] [address] Care Team Providers Care Wardrobe Custodian Name Role Phone Kathryn Jarquin MD Primary Care Provider [phone] Denis Rodgers PharmD Unavailable [phone] Reason for Visit * Reason Comments Med Refill Encounter Details Date Type Department Care Team ([facility] st Contact Info) Description 05/29/2024 Refill [facility] MEDICINE 230 [place], [place] [phone] Kathryn Jarquin MD 230 [place] [address] Upper back pain; Chronic pain of both [...] Upcoming Encounters Date Type Department Care Team ([facility] st Contact Info) Description 12/04/2024 2:30 PM EDT Clinical Support [facility] CHC MED & PEDS 505 [place] [address] Rhonda Valdez, RN 505 [place] [address] 12/10/2024 3:00 PM EDT Medication Management [facility] MEDICINE 230 [place] [address] Denis Rodgers, PharmD 230 [place] [address] 02/22/2025 1:45 PM EST Office Visit [facility] OPTOMETRY [address] [place] [address] TarkaFrancesca, OD 267 [place] [address] documented as of this encounter Goals Goal [...] documented as of this encounter Care Teams Wardrobe Custodian Relationship Specialty Start Date End Date Kathryn Jarquin MD 230 [place] [address] PCP - General Family Medicine 04/04/18 Denis Rodgers, NamitaD 230 [place] [address] Pharmacist Internal Medicine 10/22/22 documented as of this encounter
--- OUTSIDE RECORDS SUMMARY | 2024-11-29 08:47 | XMS_ITS | Encounter Summary ---
Author Organization [facility], Address [address] [place] [address] Phone Care Team Providers Care Quarter Lining Smoother Name Role Phone Kathryn aJrquin MD Primary Care Provider [phone] Encounter Details Date Type Department Care Team (Late st Contact Info) Description 09/07/2023 Documentation Only [facility], [address] [place] [address] Doug Luna [address] [place] [address] Social History Tobacco Use Types [...] on filedocumented in this encounter Care Teams Quarter Lining Smoother Relationship Specialty Start Date End Date Kathryn Jarquin MD [address] [place] [address] PCP - General Family Medicine 08/31/23 documented as of this encounter
--- OUTSIDE RECORDS SUMMARY | 2024-11-29 08:48 | XMS_ITS | Encounter Summary ---
Author Organization [employer] Address 75 [facility] 7t [place] [address] Care Team Providers Care Heel Compressor Name Role Phone Kathryn Jarquin MD Primary Care Provider [phone] Denis Rodgers PharmD Unavailable Reason for Visit * Reason Onset Date Comments Med Refill 09/24/2024 Encounter Details Date Type Department Care Team (Late st Contact Info) Description 09/24/2024 Telephone [facility] MEDICINE 230 [place] [address] Kathryn Jarquin MD 230 [place], [place] [phone] Med Refill Social History Tobacco Use Types [...] encounter Miscellaneous Notes * Telephone Encounter - Kenny Prabhakar - 09/24/2024 2:42 PM EDT TC from pt requesting medication refill. Medications needing refill: oxyCODONE (Roxicodone) 5 MG immediate release tablet To be sent to: [facility] - [place], [place] - [address] [place] [address] documented in this encounter Plan of Treatment Upcoming Encounters Date Type Department Care Team ([facility] st Contact Info) Description 12/04/2024 2:30 PM EDT Clinical Support [facility] CHC MED & PEDS 505 [place] [address] Rhonda Valdez, RN 505 [place] [address] 12/10/2024 3:00 PM EDT Medication Management [facility] MEDICINE 230 [place] [address] Denis Rodgers, PharmD 230 [place] [address] 02/22/2025 1:45 PM EST Office Visit [facility] OPTOMETRY 267 [place] [address] Francesca Martinez, OD 267 [place] [address] documented as of this encounter Goals Goal [...] as of this encounter Care Teams Heel Compressor Relationship Specialty Start Date End Date Kathryn Jarquin MD 230 [place] [address] PCP - General Family Medicine 04/04/18 Denis Rodgers, PharmD 230 [place] [address] Pharmacist Internal Medicine 10/22/22 documented as of this encounter
--- OUTSIDE RECORDS SUMMARY | 2024-11-29 08:48 | XMS_ITS | Encounter Summary ---
Author Organization [employer] Address 75 [facility] 7t [place] [address] Care Team Providers Care Biofuels Operations Manager Name Role Phone Kathryn Jarquin MD Primary Care Provider [phone] Denis Rodgers PharmD Unavailable [phone] Reason for Visit * Reason Onset Date Comments Nurse Triage 09/24/2024 Encounter Details Date Type Department Care Team ([facility] st Contact Info) Description 09/24/2024 Telephone [facility] MEDICINE 230 [place] [address] Kathryn Jarquin MD 230 [place], [place] [phone] Nurse Triage Social History Tobacco Use Types [...] Telephone Encounter - Denise Pinedo RN - 09/24/2024 2:53 PM EDT No dog catcher needed as 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 Call returned to Wen Moran to triage below at [phone]. Reports having chronic pain that is using Oxycodone for. Pt was looking for status of Rx. Advised was queued to SAFE [employer] VAULT MECHANIC nurse for MASSPAT review and then to send to provider for signature. Pt also looking for rx of Magnesium. Not on active med list. Pt advised will forward note to PCP to review and advise Primary Care Team nurses of plan of care re: magnesium. Protocol Used: Medication Refill and Renewal Call (Adult) Protocol-Based Disposition: Discuss with PCP and Callback by Nurse Today Positive Triage Questions: * Caller requesting a CONTROLLED substance prescription refill (e.g., narcotics, ADHD medicines) * Caller has NON-URGENT medicine question about med that PCP prescribed and triager unable to answer question * All higher-acuity triage questions were negative Care Advice Discussed: * Reasons To Call Back - You have more questions * Telephone Encounter - Kenny Prabhakar - 09/24/2024 2:44 PM EDT Symptom: Pain - Severe Outcome: Talk to a nurse or provider within 15 minutes Reason: Abdominal pain Please contact pt at [phone]. (South African Speaker) documented in this encounter Plan of Treatment Upcoming Encounters Date Type Department Care Team ([facility] st Contact Info) Description 12/04/2024 2:30 PM EDT Clinical Support [facility] MED & PEDS 505 [place] [address] Rhonda Valdez, RN 505 [place] [address] 12/10/2024 3:00 PM EDT Medication Management [facility] MEDICINE 230 [place] [address] Denis Rodgers PharmD 230 [place] [address] 02/22/2025 1:45 PM EST Office Visit [facility] OPTOMETRY 267 [place], [place] [phone] Francesca Martinez, OD 267 [place] [address] documented as of this encounter Goals Goal Patient Goal Type Associated Problems Recent Progress Patient-Stated? Author Blood Pressure < 140/90 Blood Pressure 134/74( 025 4:06 PM EDT) No Denis Rodgers, Swapnil documented as of this encounter Visit Diagnoses Not on filedocumented in this encounter Additional Health Concerns Assessment Noted Time PHQ-9 Depression Total Score: 12 024 10:26 AM EST documented as of this encounter Care Teams Biofuels Operations Manager Relationship Specialty Start Date End Date Kathryn Jarquin MD [address] [place] [address] PCP - General Family Medicine 04/04/18 Denis Rogders, NamitaD [address] [place] [address] Pharmacist Internal Medicine 10/22/22 documented as of this encounter
--- OUTSIDE RECORDS SUMMARY | 2024-11-29 08:48 | XMS_ITS | Encounter Summary ---
Author Organization [employer] Address [address] [facility] [address] 7t [place] [address] Care Team Providers Care Dancing Instructor Name Role Phone Kathryn Jarquin MD Primary Care Provider [phone] Denis Rodgers PharmD Unavailable [phone] Encounter Details Date Type Department Care Team ([facility] st Contact Info) Description 04/02/2024 Orders Only [facility] MEDICINE 230 [place] [address] Kathryn Jarquin MD 230 [place] [address] Social History Tobacco Use Types Packs/Day Years [...] Description 12/04/2024 2:30 PM EDT Clinical Support [facility] MED & PEDS 505 [place] [address] Rhonda Valdez, DELFINA 505 [place] [address] 12/10/2024 3:00 PM EDT Medication Management [facility] MEDICINE 230 [place] [address] Denis Rodgers PharmD 230 [place] [address] 02/22/2025 1:45 PM EST Office Visit [facility] OPTOMETRY [address] [place] [address] Francesca Martinez, OD 267 [place] [address] documented as of this encounter Goals Goal [...] documented as of this encounter Care Teams Dancing Instructor Relationship Specialty Start Date End Date Kathryn Jarquin MD 230 [place] [address] PCP - General Family Medicine 04/04/18 Denis Rodgers, PharmD [address] [place] [address] Pharmacist Internal Medicine 10/22/22 documented as of this encounter
--- OUTSIDE RECORDS SUMMARY | 2024-11-29 08:48 | XMS_ITS | Encounter Summary ---
Author Organization [employer] Address [address] [facility] [address] 7t [place] [address] Care Team Providers Care Area Attendant Name Role Phone Kathryn Jarquin MD Primary Care Provider [phone] Denis Rodgers PharmD Unavailable [phone] Encounter Details Date Type Department Care Team (Late st Contact Info) Description 01/14/2023 Orders Only [facility] MEDICINE 230 [place] [address] Kathryn Jarquin MD [address] [place] [address] Stage 3b chronic kidney disease (CMS/HCC) (Primary [...] Description 12/04/2024 2:30 PM EDT Clinical Support [facility] CHC MED & PEDS 505 [place] [address] Rhonda Valdez, DELFINA 505 [place] [address] 12/10/2024 3:00 PM EDT Medication Management [facility] MEDICINE 230 [place] [address] Denis Rodgers, PharmD 230 [place] [address] 02/22/2025 1:45 PM EST Office Visit [facility] OPTOMETRY [address] [place] [address] Tarka, Francesca, OD 267 [place] [address] Scheduled Orders Name Type Priority Associated Diagnoses Orde r Schedule Comprehensive Metabolic Panel Lab Routine Stage 3b chronic kidney disease ([facility]/HCC) Expected: 01/14/2023 (Approximate), Expires: 01/15/2024 Creatine Kinase, Total Lab Routine Stage 3b chronic kidney disease ([facility]/HCC) Expected: 01/14/2023 (Approximate), Expires: 01/15/2024 documented as [...] hyperglycemia, without long-term current use of insulin ([facility]) documented in this encounter Care Teams Area Attendant Relationship Specialty Start Date End Date Kathryn Jarquin MD [address] [place] [address] PCP - General Family Medicine 04/04/18 Denis Rodgers, Swapnil [address] [place] [address] Pharmacist Internal Medicine 10/22/22 documented as of this encounter
--- OUTSIDE RECORDS SUMMARY | 2024-11-29 08:48 | XMS_ITS | Encounter Summary ---
Author Organization [employer] Address 75 [facility] 7t [place] [address] Care Team Providers Care Legal Researcher Name Role Phone Kathryn Jarquin MD Primary Care Provider [phone] Denis Rodgers PharmD Unavailable [phone] Reason for Visit * Reason Onset Date Comments Med Refill 08/21/2024 Encounter Details Date Type Department Care Team (Late st Contact Info) Description 08/21/2024 Telephone [facility] MEDICINE 230 [place] [address] Kathryn Jarquin MD 230 [place], [place] [phone] Med Refill Social History Tobacco Use Types [...] encounter Miscellaneous Notes * Telephone Encounter - Jayla Anderson - 08/21/2024 11:03 AM EDT TC from pt requesting medication refill. Medications needing refill : oxyCODONE (Roxicodone) 5 MG immediate release tablet To be sent to: [facility] - [place], [place] - [address] [place] [address] documented in this encounter Plan of Treatment Upcoming Encounters Date Type Department Care Team ([facility] st Contact Info) Description 12/04/2024 2:30 PM EDT Clinical Support [facility] CHC MED & PEDS 505 [place] [address] Rhonda Valdez, DELFINA 505 [place] [address] 12/10/2024 3:00 PM EDT Medication Management [facility] MEDICINE 230 [place] [address] Denis Rodgers, PharmD 230 [place] [address] 02/22/2025 1:45 PM EST Office Visit [facility] OPTOMETRY [address] [place] [address] Francesca Martinez, OD [address] [place] [address] documented as of this encounter Goals Goal [...] documented as of this encounter Care Teams Legal Researcher Relationship Specialty Start Date End Date Kathryn Jarquin MD 230 [place] [address] PCP - General Family Medicine 04/04/18 Denis Rodgers, PharmD [address] [place] [address] Pharmacist Internal Medicine 10/22/22 documented as of this encounter
--- OUTSIDE RECORDS SUMMARY | 2024-11-29 08:48 | XMS_ITS | Encounter Summary ---
Author Organization [employer] Address [address] [place] [address] Care Team Providers Care Color Print Inspector Name Role Phone Kathryn Jarquin MD Primary Care Provider [phone] Denis Rodgers PharmD Unavailable [phone] Reason for Visit * Reason Onset Date Comments FYI 10/19/2024 Encounter Details Date Type Department Care Team ([facility] st Contact Info) Description 10/19/2024 Telephone [facility] MEDICINE [address] [place] [address] Kathryn Jarquin MD [address], [place] [phone] FYI Social History Tobacco Use Types Packs/Day Years [...] encounter Miscellaneous Notes * Telephone Encounter - Kylah Soares RN - 10/19/2024 10:48 AM EDT Noted. Will forward to PCP for FYI * Telephone Encounter - Jayla Anderson - 10/19/2024 10:41 AM EDT Tc from Sandra with [facility] stating that the patient refused physical therapy and skillednursing services. Sandra reported that the patient is not interested in services at this time. Contact pt at [phone] documented in this encounter Plan of Treatment Upcoming Encounters Date Type Department Care Team (Late st Contact Info) Description 12/04/2024 2:30 PM EDT Clinical Support [facility] MED & PEDS [address] [place] [address] Rhonda Valdez, RN [address] [place] [address] 12/10/2024 3:00 PM EDT Medication Management [facility] MEDICINE [address] [place] [address] Denis Rodgers, PharmD [address] [place] [address] 02/22/2025 1:45 PM EST Office Visit [facility] OPTOMETRY [address] [place], [place] [phone] Briannasun Francesca, OD [address] [place] [address] documented as of this encounter Goals Goal [...] documented as of this encounter Care Teams Color Print Inspector Relationship Specialty Start Date End Date Kathryn Jarquin MD [address], [place] [phone] PCP - General Family Medicine 04/04/18 Denis Rodgers, PharmD [address], [place] [phone] Pharmacist Internal Medicine 10/22/22 documented as of this encounter
--- OUTSIDE RECORDS SUMMARY | 2024-11-29 08:48 | XMS_ITS | Clinical Summary ---
Author Organization [employer] Address [address] [facility] [address] [place] [address] Care Team Providers Care Claims Attorney Name Role Phone Kathryn Jarquin MD Primary Care Provider [phone] Denis Rodgers PharmD Unavailable [phone] Allergies No known active allergies Medications * [...] prazosin (Minipress) 1 MG capsule 023 Active albuterol (ProAir HFA) 108 (90 Base) MCG/ACT inhaler inhale 2 puff by inhalation route every 4 - 6 hours as needed for difficulty breathing, 4 times / day 021 Active Linzess 290 MCG capsule TOME MCKAYLA C PSULA TODOS LOS D EN LA MA ELIZ 023 Active omeprazole (PriLOSEC) [address] capsule TAKE 1 CAPSULE ORALLY DAILY 023 Active Premarin 0.625 MG/GM creamIndication s:Subacute and chronic vaginitis INSERT 1 APPLICATORFUL VAGINALLY ONCE DAILY AT BEDTIME FOR 2 WEEKS, THEN USE 1 APPLICATORFUL TWICE WEEKLY 30 g 3 023 Active albuterol (2.5 MG/3ML) 0.083% nebulizer solution INHALE 1 AMPULE USING A NEBULIZER EVERY 6 HOURS NEEDED FOR SHORTNESS OF BREATH 90 mL 1 Active chlorthalidone (Hygroton) 25 MG tabletIndicatio ns:Primary hypertension TAKE 1 TABLET BY MOUTH EVERY MORNING 90 tablet 3 Active naloxone (Narcan) 4 mg/0.1 mL nasal [...] EVENING WITH FOOD 180 tablet 2 Active QUEtiapine XR (SEROquel XR) 200 MG 24 hr tablet Take 200 mg by mouth at bedtime. Active amLODIPine (Norvasc) 5 MG tablet TAKE 1 TABLET BY MOUTH EVERY EVENING 90 tablet 3 Active glucose blood (FREESTYLE LITE) test strip Use to test blood sugar 2 times daily 100 each 025 2025 Active Lancets misc Use to test blood sugar 2 times daily 100 each Active Alcohol Swabs 70 % pads Use to test blood sugar 2 times daily 100 each Active Blood Glucose Monitoring Suppl (FreeStyle [place] Lite) w/Device kit Use to test blood sugar 2 times daily 1 kit Active Tirzepatide (Mounjaro) 7.5 MG/0.5ML solution auto-injectorIn dications:Type 2 diabetes mellitus with stage 3b chronic kidney disease, without long-term current use of insulin ([facility]) Inject 7.5 mg under the skin 1 (one) time per week. 2 mL 11 Active insulin degludec (Tresiba FlexTouch) 100 UNIT/ML injection Administer 10 units subcutaneously once daily 3 mL 12 Active acetaminophen (Tylenol Extra Strength) 500 MG tablet Take 2 tablets (1,000 mg) by mouth every 8 (eight) hours if needed for mild pain or moderate pain. 60 tablet 2 Active glucose 4 g chewable tabletIndicatio ns:Type 2 diabetes mellitus with stage 3b chronic kidney disease, without long-term current use of insulin ([facility]) Chew 4 tablets (16 g) if needed for low blood sugar. 30 tablet 11 025 2025 Active pen needle 32G x 4 mm miscIndications :Type 2 diabetes mellitus with stage 3b chronic kidney disease, without long-term current use of insulin ([facility]) Use daily with insulin 100 each 025 2025 Active oxyCODONE (Roxicodone) 5 MG immediate release tabletIndicatio ns:Upper back pain,Chronic pain of both knees,Chronic female pelvic pain,Chronic pain syndrome Take 1 tablet (5 mg) by mouth if needed at bedtime for severe pain. 28 tablet Active atorvastatin (Lipitor) 80 MG tablet TAKE 1 TABLET BY MOUTH AT BEDTIME 90 tablet 3 Active Aspirin EC Adult Low Dose 81 MG EC tablet TAKE 1 TABLET BY MOUTH AT BEDTIME 90 tablet 3 025 Active atorvastatin (Lipitor) 80 MG tablet TAKE 1 TABLET BY MOUTH AT BEDTIME 90 tablet 3 024 2024 Discontinued Aspirin EC Adult Low Dose 81 MG EC tablet TAKE 1 TABLET BY MOUTH AT BEDTIME 90 tablet 3 024 2024 Discontinued oxyCODONE (Roxicodone) 5 MG immediate release tabletIndicatio ns:Upper back pain,Chronic pain of both knees,Chronic female pelvic pain,Chronic pain syndrome Take 1 tablet (5 mg) by mouth if needed at bedtime for severe pain. 28 tablet 025 2024 Discontinued(R eorder (will not trigger notification to Pharmacy)) Active Problems Problem Noted Date Diagnosed Date Chronic back pain 10/29/2024 Assessment & Plan (10/29/2024 12:17 PM EDT): - lumbar spondylosis - following with [facility] pain management, plan for MBB. - Patient will call to reschedule appointment - continue judicious use of APAP and oxycodone - avoid NSAID/COX2i Long-term current use of opiate analgesic 2024 RTA (renal tubular acidosis) 11/10/2023 Urinary retention 05/08/2023 Assessment & Plan (10/29/2024 12:11 PM EDT): - discontinue or minimize medications that have anticholinergic effect - discontinue oxybutynin - add tamsulosin for few days (patient is on prazosin by psychiatrist) - advised to go to ED if no urination for > 24 hours - advised to follow up with her urogyn Assessment & Plan (05/08/2023 11:58 AM EST): [...] (08/07/2024 9:08 AM EDT): - followed by [facility] GI - Work on achieving healthy weight and diet Assessment & Plan (04/05/2024 5:43 AM EST): - followed by [facility] GI - Work on achieving healthy weight and diet Assessment & Plan (05/08/2023 12:06 PM EST): - followed by [facility] GI - Work on achieving healthy weight and diet Knee pain 01/07/2023 Assessment & Plan (10/29/2024 12:10 PM EDT): - following with [facility] Ortho, last seen in July 2024 - MRI on 08/26/24: subtle radial tearing of medial meniscus; degeneration of lateral meniscus; mild thickening of fibular collateral ligament on the lateral femoral condyle; subtle chondrocalcinosis in medial and lateral compartments; mild tricompartmental osteoarthritis; prepatellar bursitis - evaluated by orthopedist; suggested that the pain is due to back issue and referred to pain management - acute flare while she has in the SNF. Prescribed prednisone. - currently taking acetaminophen prn and oxycodone 5 mg prn Assessment & Plan (08/12/2024 6:43 AM EDT): - following with [facility] Ortho - MRI on 08/26/24: subtle radial [...] 6:33 AM EDT): - taking oxycodone under CAFET[employer]IA WORKER agreement since Mar 2024 - evaluated by retail maintenance technician and given reassurance for no gynecological abnormality - upcoming appointment with GI and pain management - continue current behavioral health service Assessment & Plan (04/05/2024 5:40 AM EST): - Takes non-prescribed oxycodone to try and relieve the pain and help her sleep - Will start at low dose oxycodone only one at bedtime; discussed about its judicious use and the importance of attending [employer] appt Assessment & Plan (10/30/2022 4:06 PM EDT): - seen by urogynecologist, retail maintenance technician, general surgeon, and GI - Will check [...] (08/12/2022 4:18 PM EDT): - seen by retail maintenance technician, general surgeon, and GI - Will check UA / UCx - Most recent CT Scan on 07/26/22 showed severe diverticulosis of the colon and question mild diverticulitis of the sigmoid colon. Small amount of air in the bladder. Differential would include infection and fistula. Upper normal-size gallbladder. No gallstones seen by CT scan. Urge incontinence 08/09/2022 Assessment & Plan (10/29/2024 12:13 PM EDT): - Hx OAB, on oxybutynin, previously following with Dr. Peñaloza, last seen in 2020 - seen by [facility] in September 2023 - check UA/ UCx - hold restarting oxybutynin due to current urinary retention - advised to reschedule appointment with urogyn Assessment & Plan (05/08/2023 12:09 PM EST): - Hx OAB, on oxybutynin, previously following with Dr. Peñaloza, last seen in 2020 - seen by [facility] in August 2022, upcoming follow-up appt - check UA/ UCx - hold restarting oxybutynin due to current urinary retention Assessment & Plan (10/30/2022 4:09 PM EDT): - Hx OAB, on oxybutynin, previously following with Dr. Peñaloza, last seen in 2020 - seen by [facility] in August 2022, upcoming follow-up [...] chronic kidney disease 06/03/2022 Assessment & Plan (10/29/2024 12:14 PM EDT): -following with manager of network, last seen in May 2024 -avoid nephrotoxic drugs -no longer on metformin or ACEI/ARB -consider SGLT2i (relative contraindication due to LUTS) Assessment & Plan (08/12/2024 6:38 AM EDT): -following with manager of network, last seen in May 2024 -avoid nephrotoxic drugs -no longer on metformin or ACEI/ARB -consider SGLT2i Assessment & Plan (04/05/2024 5:47 AM EST): -following with manager of network, last seen in Nov 2023 -avoid nephrotoxic drugs -no longer on metformin -consider SGLT2i Assessment & Plan (05/08/2023 12:00 PM EST): -following with manager of network -avoid nephrotoxic drugs -no longer on metformin -clarify with GI whether patient needs to be on PPI Assessment & Plan (10/30/2022 4:11 PM EDT): -follow up with manager of network -avoid nephrotoxic drugs -adjust medication: metformin ER to 500 mg bid - lab review: 08/10/22 K 4.6; BUN 28; Scr 1.0 ; eGFR 56; Bicarb 28 Assessment & Plan (08/09/2022 11:50 AM EDT): -follow up with manager of network -avoid nephrotoxic drugs -adjust medication: metformin ER to 500 mg bid Assessment & Plan (06/03/2022 2:31 AM EST): -refer to manager of network -avoid nephrotoxic drugs -adjust medication: metformin ER [...] pain in female 09/13/2016 Assessment & Plan (11/02/2024 9:52 AM EDT): -Most recent imaging, pelvic CT, in September 2024. S/p hysterectomy. Benign finding. -Started CAFETERIA WORKER with oxycodone 5 mg at night since Mar 2024 -Last CAFETERIA WORKER visit on 08/01/24, pill count suggested misuse. Reviewed our agreement today. Patient requested an increase in its dose. PCP encouraged patient to try other modalities since patient is going to see pain management. -Discussed about increased risk of side effect with concurrent use of BZD; patient verbalized understanding -Patient states she is no longer taking oxycodone. -Patient states she is not constipated. Assessment & Plan (08/12/2024 6:31 AM EDT): -Started CAFETERIA WORKER with oxycodone 5 mg at night since Mar 2024 -Last CAFETERIA WORKER visit on 08/01/24, pill count suggested misuse. [...] to start oxycodone under close monitoring with CAFETERIA WORKER program; patient verbalized understanding -Discussed about increased risk of side effect with concurrent use of BZD; patient verbalized understanding -Patient states she is not constipated Recurrent UTI 11/17/2015 Assessment & Plan (10/29/2024 12:14 PM EDT): -most recent UTI in Dec 2022. urine culture grew Klebsiella, resistant to ampicillin. Rx levofloxacin. -seen by urogyn in September 2023. Recommended to call for follow up. Assessment & Plan (05/08/2023 12:08 PM EST): [...] (08/07/2024 9:07 AM EDT): - followed by [facility] GI - check whether patient needs to be on PPI or can be changed to H2-hao as recommended by manager of network Assessment & Plan (05/08/2023 12:02 PM EST): - followed by [facility] GI - check whether patient needs to be on PPI or can be changed to H2-hao as recommended by manager of network Generalized anxiety disorder with panic attacks 01/23/2015 Assessment & Plan (04/05/2024 5:54 AM EST): -tremor, patient is able to stop tremor voluntarily -check TSH Assessment & Plan (06/03/2022 2:23 AM EST): -tremor -check TSH Irritable bowel syndrome 01/23/2015 Assessment & Plan (08/07/2024 9:07 AM EDT): GI: [facility], last visit in Apr 2023 Current medication: Linzess 290 mg daily Normal EGD and colonoscopy in [facility] in Jan 2013. Colonoscopy in Apr 2023 by [facility] GI, hyperplastic polyp. Repeat in 5 years. Assessment & Plan (04/05/2024 5:45 AM EST): GI: [facility], last visit in Apr 2023 Current medication: Linzess 290 mg daily Normal EGD and colonoscopy in [facility] in Jan 2013. Colonoscopy in Apr 2023 by [facility] GI, hyperplastic polyp. Repeat in 5 years. Assessment & Plan (10/30/2022 4:20 PM EDT): GI: [facility], last visit in 08/04/22 Current medication: Linzess 290 mg daily Normal EGD and colonoscopy in [facility] in Jan 2013. Anticipating another colonoscopy soon Assessment & Plan (08/12/2022 4:19 PM EDT): GI: [facility], last visit in 08/04/22 Current medication: Linzess 290 mg daily Normal EGD and colonoscopy in [facility] in Jan 2013. Anticipating another colonoscopy soon Assessment & Plan (06/03/2022 2:15 AM EST): GI: [facility], last visit in 08/11/21 Current medication: Linzess 290 mg daily Normal EGD and colonoscopy in [facility] in Jan 2013. Pt has to reschedule colonoscopy with GI Specialist Encouraged medication compliance Pt seems to have changed GI; will confirm Recurrent major depression 01/23/2015 Assessment & Plan (10/29/2024 12:15 PM EDT): -[facility] provider: [facility] -Continue current medications: clonazepam; fluoxetine; prazosin; clonidine; quetiapine Assessment & Plan (04/05/2024 5:54 AM EST): -[facility] provider: [facility]D -Continue current medications: clonazepam; fluoxetine; prazosin; clonidine; quetiapine Assessment & Plan (05/08/2023 12:22 PM EST): -[facility] provider: CHD -Continue current medications: clonazepam; fluoxetine; prazosin; clonidine; quetiapine Assessment & Plan (10/30/2022 4:18 PM EDT): -S provider: CHD -Continue current medications: clonazepam; fluoxetine; prazosin; clonidine; quetiapine Assessment & Plan (06/03/2022 2:22 AM EST): -[facility] provider: CHD -Continue current medications: clonazepam; [...] cessation HTN (hypertension) 01/20/2015 Assessment & Plan (10/29/2024 10:27 AM EDT): -Goal BP < 130/80 per ACC/AHA guideline. Fluctuating BP (hypertensive previously, lately hypotensive resulting renal hypoperfusion) - BP elevated today, but recently hypotensive and home BP normal per patient. - Co-managed with Denis Rodgers RPh through [facility] and manager of network -Work on lifestyle modifications, DASH diet and increase physical activity -continue amlodipine 5 mg daily -continue chlorthalidone 25 mg daily -continue Hydralazine 25 mg BID (manager of network seems to be unaware of medication, will consider simplifying medication) -continue prazosin and clonidine, which are prescribed by psychiatrist, with caution -consider retial of ALEXIA inhibitors, either ACEI or ARB. -Tx Hx: Discontinued Amlodipine 5 mg daily, pt unable to tolerate side effects of leg swelling, yet restarted when lisinopril was discontinued. Assessment & Plan (08/12/2024 6:36 AM EDT): -Goal BP < 140/90 per JNC-8, < 130/80 per ACC/AHA guideline. Fluctuating BP (hypertensive previously, lately hypotensive resulting renal hypoperfusion) - BP slightly elevated today, but recently hypotensive and home BP normal per patient. - Comanaged with Denis Rodgers RPh through [facility] and manager of network -Work on lifestyle modifications, DASH diet and increase physical activity -continue amlodipine 5 mg daily -continue chlorthalidone 25 mg daily -continue Hydralazine 25 mg BID (manager of network seems to be unaware of medication, will [...] Denis Rodgers RPh through [facility] and manager of network -Work on lifestyle modifications, DASH diet and increase physical activity -continue amlodipine 5 mg daily -continue chlorthalidone 12.5 mg daily -continue Hydralazine 25 mg BID (manager of network seems to be unaware of medication, will [...] Denis Rodgers RPh through [facility] and manager of network -Work on lifestyle modifications, DASH diet and increase physical activity -continue lisinopril 20 mg daily -continue chlorthalidone 12.5 mg daily -continue Hydralazine 25 mg BID (manager of network seems to be unaware of medication, will [...] 2 diabetes mellitus 01/20/2015 Assessment & Plan (10/29/2024 10:27 AM EDT): - A1c 9.9% on 08/07/24, Slight improvement from A1C 10.4% on 03/29/24 - A1c 6.8% on 05/02/23 Discussed about the importance of lifestyle modifications Current treatment: Glipizide 5 mg bid. Will consider switching to SGLT2i. Or consider changing to glimepride due to her age. - Increase tirzepatide to 7.5 mg weekly - Discontinue Humalog. Start Basel insulin Tresiba 10 units Treatment Hx: Previously on Metformin which was discontinued due to worsening renal function Relative contraindication to SGLT-2 inhibitor due to recurrent UTI/vaginal candidiasis / UI. Last eye exam: [facility]. Nov 2023. Last foot exam: 05/02/23 Last microalbumin test: 03/29/24 UACR 10.2 Last lipid profile: 03/29/24 may need intensifying therapy by adding zetia. Questionable adherence. Assessment & Plan (08/12/2024 6:46 AM EDT): [...] UTI/vaginal candidiasis / UI. Last eye exam: [facility]. Nov 2023. Last foot exam: 05/02/23 Last [...] Encounters Date Type Department Care Team Description 11/28/2024 Refill [facility] [address] [place] [address] Kathryn Jarquin MD 11/15/2024 Refill [facility] [address] [place] [address] Kathryn Jarquin MD Upper back pain; Chronic pain of both knees; Chronic female pelvic pain; Chronic pain syndrome 11/12/2024 Telephone [facility] [address] [place] [address] Kathryn Jarquin MD 11/09/2024 Telephone [facility] [address] [place] [address] Kathryn Jarquin MD chart prep 11/07/2024 Orders Only [facility] External Provider, [facility] 11/02/2024 Travel 11/02/2024 Patient Outreach [facility] [address] [place] [address] Kathryn Jarquin MD Pre-visit Planning (Pre-visit planning - LVM ) 10/30/2024 Travel 10/30/2024 Telephone [facility] [address] [place] [address] Rhonda Valdez, DELFINA CAFETERIA WORKER 10/29/2024 9:00 AM EDT Office Visit [facility] [address] [place] [address] Kathryn Jarquin MD Hypertension, unspecified type (Primary Dx); Type 2 diabetes mellitus with stage 3b chronic kidney disease, without long-term current use of insulin (CMS/HCC); Chronic pain of both knees; Stage 3b chronic kidney disease (CMS/HCC); Recurrent UTI; Chronic pelvic pain in female; Urge incontinence; Urinary retention; Moderate episode of recurrent major depressive disorder (CMS/HCC); Chronic low back pain, unspecified back pain laterality, unspecified whether sciatica present 10/29/2024 Travel 10/26/2024 Telephone [facility] [address] [place] [address] Kathryn Jarquin MD Chart Prep 10/23/2024 10:00 AM EDT Office Visit [facility] [address] [place] [address] Art, Nadine, OD Type 2 diabetes mellitus with retinopathy of both eyes, with long-term current use of insulin, macular edema presence unspecified, unspecified retinopathy severity (CMS/HCC) (Primary Dx) 10/23/2024 Travel 10/19/2024 Telephone [facility] [address] [place] [address] Kathryn Jarquin MD FYI 10/16/2024 Patient Outreach [facility] [address] [place] [address] Kathryn Jarquin MD Transition Of Care (Tcm) (HDF scheduled. ) 10/03/2024 Orders Only GENERIC EXTERNAL DATA DEPARTMENT Provider, Generic External Data 10/02/2024 Orders Only GENERIC EXTERNAL DATA DEPARTMENT Provider, Generic External Data 10/01/2024 Results Follow-Up [facility] [address] [place] [address] Kathryn Jarquin MD Glucose, Whole Blood, Glucose, Whole Blood 10/01/2024 Orders Only GENERIC EXTERNAL DATA DEPARTMENT Provider, Generic External Data 09/30/2024 Orders Only GENERIC EXTERNAL DATA DEPARTMENT Provider, Generic External Data 09/29/2024 Orders Only GENERIC EXTERNAL DATA DEPARTMENT Provider, Generic External Data 09/28/2024 Orders Only [facility] External Provider, [facility] 09/24/2024 Refill [facility] [address] [place] [address] Rhonda Valdez, DELFINA Upper back pain; Chronic pain of both knees; Chronic female pelvic pain; Chronic pain syndrome 09/24/[address] [address] Kathryn Jarquin MD Nurse Triage 09/24/[address] [address] Kathryn Jarquin MD Med Refill 09/19/[address] [address] Kathryn Jarquin MD Hypomagnesemia 09/18/[address] [address] Kathryn Jarquin MD [place] 09/07/2024 Travel 09/07/2024 Telephone [facility] [address] [place] [address] Rhonda Valdez RN 09/06/[address] [address] Kathryn Jarquin MD Nurse Triage 09/05/2024 2:15 PM EDT Clinical Support [facility] [address] [place] [address] Rhonda Valdez, flash oven operator pain of both knees 09/05/2024 Travel 08/29/2024 Travel from Last 3 Months Immunizations Immunization Administration Dates Next Due Hep A, Adult 08/07/2024,03/29/2024 Hep B, adult 06/27/2014,02/18/2014,08/20/2013 Influenza High-dose Quadriva lent Preservative Free 01/07/2023 Influenza injectable quadriv alent IIV4 with preservative 02/06/2018,01/11/2017,12/29/2015,01/23 Influenza injectable quadriv alent preservative free 03/09/2021,02/21/2020 Influenza, High Dose Seasona l, Preservative Free 04/16/2019 Influenza, IIV3, injectable 03/19/2024,1 04/20/2013,01/22/2011,02/04,03/25/2006 Influenza, Split (incl. yumiko fied surface antigen) 06/02/2012 Influenza, seasonal, injecta ble, preservative free 03/29/2024 Moderna Covid-19 Vaccine 12+ 11/25/2021, 11/25/2021,07/04/2020,06/06 Pfizer Covid-19 Vaccine 12+ 08/07/2024, Pneumococcal Conjugate PCV 20 05/02/2023 Pneumococcal Polysaccharide PPSV23 11/12/2008 SARS-CoV-2, Unspecified 07/04/2020,06/06/2020 TD (adult), 2 Lf tetanus tox oid, [...] Sign Reading Time Taken Comments Blood Pressure 134/74 11/02/2024 4:06 PM EDT Pulse 82 11/02/2024 4:06 PM EDT Temperature 36.1 C (96.9 F) 10/29/2024 9:02 AM EDT Respiratory Rate 17 10/29/2024 9:02 AM EDT Oxygen Saturation 97% 10/29/2024 9:02 AM EDT Inhaled Oxygen Concentration - - Weight 68.9 kg (152 lb) 10/29/2024 9:02 AM EDT Height 147.3 cm (4' 10 ) 10/29/2024 9:02 AM EDT Body Mass Index 31.77 10/29/2024 9:02 AM EDT Plan of Treatment Upcoming Encounters Date Type Department Care Team (Late st Contact Info) Description 12/04/2024 2:30 PM EDT Clinical Support [facility] [address] [place] [address] Rhonda Valdez, DELFINA [address] [place] [address] 12/10/2024 3:00 PM EDT Medication Management [facility] [address] [place] [address] Denis Rodgers, PharmD [address] [place] [address] 02/22/2025 1:45 PM EST Office Visit [facility] [address] [place] [address] Francesca Martinez, OD [address] [place] [address] Health Maintenance Due Date Last Done Comments CT Colonography 1956 FIT DNA/Cologuard 1956 FIT 1956 FOBT 1956 Sigmoidoscopy 1956 RSV Patients and Patients Aged 60 years or older (1 - Risk 60-74 years 1-dose series) 2016 Zoster Vaccines (2 of 2) 03/04/2023 01/07/2023 Depression Monitoring 09/27/2024 03/29/2024, 024 Eye Exam 11/17/2024 11/18/2023 Influenza Vaccine (#1) 2024 , 03/19/2024, 01/07/2023, Additional history exists Diabetes: Hemoglobin A1C 02/03/2025 025, 08/07/2024, 03/29/2024, Additional history exists COVID-19 Vaccine ( season) 2025 08/07/2024, 05/02/2023, 11/25/2021, Additional history exists Hepatitis A Vaccines (2 of 2 - Risk 2-dose series) 02/07/2025 08/07/2024, 03/29/2024 Alcohol/Substance Use Screening 03/29/2025 03/29/2024 Diabetes: Foot Exam 03/29/2025 03/29/2024 Lipid Panel 03/29/2025 03/29/2024, 01/02, 05/15/2021, Additional history exists SDOH Screening 08/07/2025 08/07/2024 Tobacco Screening 11/08/2025 11/08/2024 Mammogram 11/07/2026 11/07/2024, 09/02, 01/22/2020, Additional history exists Colonoscopy 04/15/2028 04/15/2023, 09/10/2022 Colorectal Cancer Screening 04/15/2028 DTaP/Tdap/Td Vaccines (3 - Td or Tdap) 05/02/2033 05/02/2023, 06/02/2012, 11/12/2008 Hepatitis B Vaccines Completed 06/27/2014, 02/18/2014, 08/20/2013 Hepatitis C Screening Completed 04/18/2019 Pneumococcal Vaccine: 50+ Years Completed 05/02/2023, 11/12/2008 HIB Vaccines Aged Out No longer eligi [...] Blood Pressure 134/74( 025 4:06 PM EDT) Denis Watkins, Swapnil Procedures Procedure Name Priority Date/Time Associated Diagnosis Comments BI MAMMOGRAM SCREENING TOMOSYNTHESIS BILATERAL Routine 11/07/2024 11:36 AM EDT POCT GLYCOSYLATED HEMOGLOBIN (HGB A1C) Routine 11/03/2024 11:35 AM EDT Type 2 diabetes mellitus with stage 3b chronic kidney disease, without long-term current use of insulin ([facility]) POCT GLUCOSE Routine 10/29/2024 9:03 AM EDT Type 2 diabetes mellitus with stage 3b chronic kidney disease, without long-term current use of insulin ([facility]) FUNDUS PHOTOS - OU - BOTH EYES Routine 10/23/2024 10:00 AM EDT Type 2 diabetes mellitus with retinopathy of both eyes, with long-term current use of insulin, macular edema presence unspecified, unspecified retinopathy severity ([facility]) GLUCOSE, WHOLE BLOOD Routine 10/03/2024 7:56 AM EDT GLUCOSE, WHOLE BLOOD Routine 10/02/2024 8:30 PM EDT GLUCOSE, WHOLE BLOOD Routine 10/02/2024 5:09 PM EDT GLUCOSE, WHOLE BLOOD Routine 10/02/2024 11:55 AM EDT GLUCOSE, WHOLE BLOOD Routine 10/02/2024 7:21 AM EDT GLUCOSE, WHOLE BLOOD Routine 10/01/2024 9:05 PM EDT GLUCOSE, WHOLE BLOOD Routine 10/01/2024 4:18 PM EDT GLUCOSE, WHOLE BLOOD Routine 10/01/2024 1:44 PM EDT GLUCOSE, WHOLE BLOOD Routine 09/30/2024 5:42 PM EDT GLUCOSE, WHOLE BLOOD Routine 09/30/2024 2:09 PM EDT GLUCOSE, WHOLE BLOOD Routine 09/30/2024 7:11 AM EDT GLUCOSE, WHOLE BLOOD Routine 09/29/2024 6:11 PM EDT GLUCOSE, WHOLE BLOOD Routine 09/29/2024 12:44 PM EDT GLUCOSE, WHOLE BLOOD Routine 09/29/2024 7:52 AM EDT GLUCOSE, WHOLE BLOOD Routine 09/28/2024 10:[address] PELVIS WO CONTRAST Routine 09/28/2024 12:54 PM EDT POCT FLORENCIA-14 URINE DRUG SCREEN Routine 09/05/2024 2:32 PM EDT Chronic pain of both knees LIPID PANEL WITH REFLEX TO DIRECT LDL Routine 03/29/2024 11:49 AM EST Type 2 diabetes mellitus with stage 3b chronic kidney disease, without long-term current use of insulin ([facility]) DIABETES EYE EXAM Routine 11/18/2023 COLONOSCOPY Routine 04/15/2023 ZZZ HISTORICAL HEPATITIS C ANTIBODY RFLX Routine 04/18/2019 8:30 AM EST from Last 3 Months or Most Recently Relevant to Health Maintenance Results * BI Mammogram Screening Tomosynthesis Bilateral (11/07/2024 11:36 AM EDT) Anatomical Region Laterality Modality Breast Bilateral Mammography 11/07/2024 11:3 6 AM EDT Narrative 11/17/2024 6:20 PM EDT [facility] [address] [place] [address] Mammography Report Signed Patient: Wen Moran MR#: [id number] : 1955 Acct:[id number] Age/Sex: 69 / F ADM Date: 11/07/24 Loc: MAMMO Attending Dr: Kathryn Jarquin MD Ordering Physician: Jaylen Cotton MD Results: 1Negativ e Date of Service: 11/07/24 Follow Up: 1 Year From [facility] Mammogram Procedure(s): MM tomosynthesis screening BI Accession Number(s): [id number] cc: Kathryn Jarquin MD; Jaylen Cotton MD EXAMINATION: MM SCREENING DIGITAL BREAST TOMOSYNTHESIS, BILATERAL CLINICAL INFORMATION: Screening. Asymptomatic. COMPARISON: Comparison made to multiple prior, most recent September 10, 2022, and most remote January 25, 2018. TECHNIQUE: Digital breast tomosynthesis is performed in both the craniocaudal and mediolateral oblique views along with computer-aided detection (CAD). FINDINGS: BREAST COMPOSITION: The breasts are heterogeneously dense, which may obscure small masses (ACR BI-RADS breast composition Category c). BILATERAL BREASTS: No significant masses, suspicious calcifications or other abnormalities are seen in either breast. MM/MM tomosynthesis screening BI IMPRESSION: BILATERAL BREASTS: Negative, no mammographic evidence of malignancy. Normal interval follow-up is recommended in 12 months. ASSESSMENT: BI-RADS 1 - Negative RECOMMENDATION: Routine annual mammography screening. FOLLOW-UP: 1 year F/U This examination should not preclude the clinical evaluation of a suspicious palpable abnormality. This patient's information was entered into a reminder system with a target due date for their next mammogram. Electronically signed by: Neal Fields MD 11/17/2024 06:17 PM EDT RP Dictated By: Neal Fields MD Signed By: <Electronically signed by Neal Fields MD in OV> 11/17/24 1817 DD/ 1136 TD/TT: 11/07/24 1150 Clerical And Administrative Workers: Procedure Note Donotuseinterpreter, Image - 11/17/2024 [facility] [address] [place] [address] Mammography Report Signed Patient: Devin Moran#: [id number] : 7Acct:[id number] Age/Sex: 69 / FADM Date: 11/07/24 Loc: ELIAN Attending Dr: Kathryn Jarquin MD Ordering Physician: Jaylen Cotton MDResults: 1Negativ e Date of Service: 11/07/24Follow Up: 1 Year From Orig in[facility] Mammogram Procedure(s): MM tomosynthesis screening BI Accession Number(s): [id number] cc: Kathryn Jarquin MD; Jaylen Cotton MD EXAMINATION: MM SCREENING DIGITAL BREAST TOMOSYNTHESIS, BILATERAL CLINICAL INFORMATION: Screening. Asymptomatic. COMPARISON: Comparison made to multiple prior, most recent September 10, 2022, and most remote January 25, 2018. TECHNIQUE: Digital breast tomosynthesis is performed in both the craniocaudal and mediolateral oblique views along with computer-aided detection (CAD). FINDINGS: BREAST COMPOSITION: The breasts are heterogeneously dense, which may obscure small masses (ACR BI-RADS breast composition Category c). BILATERAL BREASTS: No significant masses, suspicious calcifications or other abnormalities are seen in either breast. MM/MM tomosynthesis screening BI IMPRESSION: BILATERAL BREASTS: Negative, no mammographic evidence of malignancy. Normal interval follow-up is recommended in 12 months. ASSESSMENT: BI-RADS 1 - Negative RECOMMENDATION: Routine annual mammography screening. FOLLOW-UP: 1 year F/U This examination should not preclude the clinical evaluation of a suspicious palpable abnormality. This patient's information was entered into a reminder system with a target due date for their next mammogram. Electronically signed by: Neal Fields MD 11/17/2024 06:17 PM EDT RP Dictated By: Neal Fields MD Signed By: <Electronically signed by Neal Fields MD in OV> 11/17/24 1817 DD/ 1136 TD/TT: 11/07/24 1150 Clerical And Administrative Workers: [facility] External Provider IMG BI PROCEDURES Edited Result - Final * (ABNORMAL) POCT glycosylated hemoglobin (Hgb A1c) (11/03/2024 11:35 AM EDT) Hemoglobin A1C 9.4(A) 4.0 - 5.7 % QC Media Lot # [id number] Lot# Expiration Date Blood Capillary blood specimen / Unknown 11/03/2024 11:35 AM EDT Kathryn Jarquin MD POINT OF CARE TEST ENTER/EDIT OR DERABLES Final Result * (ABNORMAL) POCT glucose manually resulted (10/29/2024 9:03 AM EDT) Glucose Blood, POC 246(A) 60 - 200 mg/dL QC Media Lot # [id number] Lot# Expiration Date 658, Blood Capillary blood specimen / Unknown 10/29/2024 9:03 AM EDT Kathryn Jarquin MD POINT OF CARE TEST ENTER/EDIT OR DERABLES Final Result * Fundus Photos - OU - Both Eyes (10/23/2024 10:00 AM EDT) Narrative Nadine Cordova, OD - 11/09/2024 11:31 AM EDT Images from the original result were not included. Right Eye Progression has no prior data. Disc findings include normal observations (0.2/0.2, no NVD). Macula findings include (No obvious CSME). Vessel findings include (Mild venous beading, AV nicking). Periphery findings include (Few drusen, no obvious diabetic retinopathy). Left Eye Progression has no prior data. Disc findings include (0.15/0.15, no NVD). Macula findings include (No obvious CSME). Vessel findings include (Mild venous beading, AV nicking). Periphery findings include (Unable to assess). Notes Assessment and Plan: Photos are not great for either eye. The left eye photo is not clear enough to grade. The right eye shows early venous beading but no overt hemorrhages or exudates. Will contact the patient for a dilated eye exam to better assess her ocular health. Nadine Cordova OD OPHTH PHOTOGRAPHY Final Resul t * (ABNORMAL) Glucose, Whole Blood (10/03/2024 7:56 AM EDT) Only the most recent of15 resultswithin the time period is included. Glucose, Whole Blood 165(H) 60 - 115 mg/dL [facility] Comment:METER #: [id number] 10/03/2024 7:56 AM EDT 10/03/2024 8:01 AM EDT Generic External Data Provider LAB BLOOD ORDERAB LES Final Result [facility] [address] [place] [phone] * CT Pelvis w/o Contrast (09/28/2024 12:54 PM EDT) Anatomical Region Laterality Modality Body, Pelvis Computed Tomogra phy 09/28/2024 12:5 4 PM EDT Narrative 09/28/2024 2:22 PM EDT [address] [address] [address] Scan Report Signed Patient: Wen Moran MR#: [id number] : 1955 Acct:[id number] Age/Sex: 69 / F ADM Date: 09/28/24 Loc: HO.ED Attending Dr: Ordering Physician: Lauren Persaud NP Date of Service: 09/28/24 Procedure(s): CT pelvis wo IV con Accession Number(s): [id number] cc: Kathryn Jarquin MD; Lauren Persaud NP Report Number: [id number]: Total DLP = 488.00 mGy-cm EXAMINATION: CT PELVIS WITHOUT CONTRAST CLINICAL INFORMATION: Unable to stand on right leg. Pain. COMPARISON: None available. TECHNIQUE: Helical scanning was performed with submillimeter collimation through the pelvis. Sagittal and coronal multiplanar 2-D reconstructions were obtained. This CT examination was performed using dose optimization techniques as appropriate, variously including the following: *Automated exposure control *Adjustment of mA and/or kV according to patient size (this includes techniques or standardized protocols for targeted exams where dose is matched to indication/reason for exam; i.e. extremities or head) *Use of iterative reconstruction technique FINDINGS: OSSEOUS STRUCTURES: Pelvis appears intact. There are no fractures. The right and left hips appear intact without fracture. The sacrum appears intact without fracture. The imaged lower lumbar spine appears intact without fracture. The SI joints are intact. There are no bone lesions. PELVIS: Pelvic girdle musculature has a normal appearance without hematoma or fluid collection. The bladder is intact. There has been a hysterectomy. Imaged bowel structures demonstrate diverticulosis of the sigmoid. A normal appendix is visualized. There has been prior ventral abdominal hernia repair, with mesh, partially imaged. The abdominal wall and pelvic wall appear normal otherwise. There are moderate calcific atheromatous changes of the arterial structures. CT/CT pelvis wo IV con IMPRESSION: 1. No acute findings in the pelvis. There are no fractures or bone lesions. 2. There is sigmoid diverticulosis. There has been a hysterectomy. Electronically signed by: Lazaro Mitchell MD 09/28/2024 02:19 PM EDT Dictated By: Lazaro Mitchell MD Signed By: <Electronically signed by Lazaro Mitchell MD in OV> 09/28/24 1419 DD/ 1254 TD/TT: 09/28/24 1405 Clerical And Administrative Workers: Procedure Note Donotuseinterpreter, Image - 09/28/[address] [address] [address] Scan Report Signed Patient: Devin Moran#: [id number] : 7Acct:[id number] Age/Sex: 69 / FADM Date: 09/28/24 Loc: HO.ED Attending Dr: Ordering Physician: Lauren Persaud NP Date of Service: 09/28/24 Procedure(s): CT pelvis wo IV con Accession Number(s): [id number] cc: Kathryn Jarquin MD; Lauren Persaud NP Report Number: [id number]: Total DLP = 488.00 mGy-cm EXAMINATION: CT PELVIS WITHOUT CONTRAST CLINICAL INFORMATION: Unable to stand on right leg. Pain. COMPARISON: None available. TECHNIQUE: Helical scanning was performed with submillimeter collimation through the pelvis. Sagittal and coronal multiplanar 2-D reconstructions were obtained. This CT examination was performed using dose optimization techniques as appropriate, variously including the following: *Automated exposure control *Adjustment of mA and/or kV according to patient size (this includes techniques or standardized protocols for targeted exams where dose is matched to indication/reason for exam; i.e. extremities or head) *Use of iterative reconstruction technique FINDINGS: OSSEOUS STRUCTURES: Pelvis appears intact. There are no fractures. The right and left hips appear intact without fracture. The sacrum appears intact without fracture. The imaged lower lumbar spine appears intact without fracture. The SI joints are intact. There are no bone lesions. PELVIS: Pelvic girdle musculature has a normal appearance without hematoma or fluid collection. The bladder is intact. There has been a hysterectomy. Imaged bowel structures demonstrate diverticulosis of the sigmoid. A normal appendix is visualized. There has been prior ventral abdominal hernia repair, with mesh, partially imaged. The abdominal wall and pelvic wall appear normal otherwise. There are moderate calcific atheromatous changes of the arterial structures. CT/CT pelvis wo IV con IMPRESSION: 1. No acute findings in the pelvis. There are no fractures or bone lesions. 2. There is sigmoid diverticulosis. There has been a hysterectomy. Electronically signed by: Lazaro Mitchell MD 09/28/2024 02:19 PM EDT Dictated By: Lazaro Mitchell MD Signed By: <Electronically signed by Lazaro Mitchell MD in OV> 09/28/24 1419 DD/ 1254 TD/TT: 09/28/24 1405 Clerical And Administrative Workers: [facility] External Provider IMG CT PROCEDURES Final Result * POCT FLORENCIA-14 Urine Drug Screen (09/05/2024 2:32 PM EDT) Oxycodone Screen, Urine Positive Urine Urine specimen obtained by clean catch procedure / Unknown 09/05/2024 2:32 PM EDT Narrative Rhonda Valdez RN - 09/05/2024 2:32 PM EDT Lot# [id number] Exp: 02-01-26 Kathryn Jarquin MD POINT OF CARE TEST ENTER/EDIT OR DERABLES Final Result * (ABNORMAL) Lipid Panel with Reflex to Direct LDL (03/29/2024 11:49 AM EST) Triglycerides 232(H) <150 mg/dL [facility] Comment:Desirable Triglyceri de: less than 150 mg/dLBorderline High Triglyceride 150-199 mg/dLHigh Triglyceride: 200-499 mg/dLVery High Triglyceride: greater than or equal to 5OO mg/dL Cholesterol 253(H) <200 mg/dL [facility] Comment:Desirable Cholestero l: less than 200 mg/dLBorderline High Cholesterol: 200-239 mg/dLHigh Cholesterol: greater than 239 mg/dL LDL Cholesterol Calculated 148(H) <100 mg/dL [facility] Comment:Desirable LDL: less than 100 mg/dLNear Optimal/Above Optimal LDL: 110- 129 mg/dLBorderline High LDL: 130-159 mg/dLHigh LDL: 160-189 mg/dLVery High LDL: greater than or equal to 190 mg/dL HDL Cholesterol 59 >40 mg/dL [facility] Comment:Desirable HDL: great er than 40 mg/dL Note: This HDL assay may give artificially low results in patients with liver disease. Blood 03/29/2024 11:4 9 AM EST 03/29/2024 1:10 PM EST Kathryn Jarquin MD LAB BLOOD ORDERABLES Final Resul t Performing Organization Address City/[facility]/ZIP Co de Phone Number [facility] [address] [place] [phone] * Diabetes Eye Exam (11/18/2023) Eye Exam Normal Normal 11/18/2023 Historical Provider HEALTH MAINTENANCE Final Result * Colonoscopy (04/15/2023) Colonoscopy Normal Normal Narrative Chayo Tobin - 04/15/2023 Recommended 5 year follow up see external hospital admission note on 04/15/2023 Historical Provider HEALTH MAINTENANCE Final Result * HEPATITIS C ANTIBODY RFLX (04/18/2019 8:30 AM EST) HEPATITIS C ANTIBODY [facility] Comment: Antibodies to HCV not detected; does not exclude early acute HCV infection. 04/18/2019 8:30 AM EST us Kathryn Jarquin MD HISTORICAL/NON ORDERABLE LABS Fi nal Result Performing Organization Address City/[facility]/ZIP Co de Phone Number [facility] [address] [place] [address], from Last 3 Months or Most Recently Relevant to Health Maintenance Insurance [facility] [employer] (HMO D-SNP) [place] [id number] [place], [place] [address]E Care Teams Claims Attorney Relationship Specialty Start Date End Date Kathryn Jarquin MD [address] [place] [address] PCP - General Family Medicine 04/04/18 Denis Rodgers, NamitaD [address] [place] [address] Pharmacist Internal Medicine 10/22/22
--- OUTSIDE RECORDS SUMMARY | 2024-11-29 08:48 | XMS_ITS | Encounter Summary ---
Author Organization [employer] Address [address] [facility] [address] [place] [address] Care Team Providers Care Manager Aerospace Name Role Phone Kathryn Jarquin MD Primary Care Provider [phone] Denis Rodgers PharmD Unavailable [phone] Reason for Visit * Reason Comments Med Refill Encounter Details Date Type Department Care Team ([facility] st Contact Info) Description 09/19/2024 Refill [facility] MEDICINE [address] [place], [place] [phone] Kathryn Jarquin MD [address] [place], [place] [phone] Hypomagnesemia Social History Tobacco Use Types Packs/Day Years [...] Upcoming Encounters Date Type Department Care Team ([facility] st Contact Info) Description 12/04/2024 2:30 PM EDT Clinical Support [facility] MED & PEDS [address] [place] [address] Rhonda Valdez, DELFINA [address] [place] [address] 12/10/2024 3:00 PM EDT Medication Management [facility] MEDICINE [address] [place] [address] Denis Rodgers, Swapnil [address] [place] [address] 02/22/2025 1:45 PM EST Office Visit [facility] OPTOMETRY [address] [place] [address] TarkaFrancesca, OD [address] [place] [address] documented as of this encounter Goals Goal Patient Goal Type Associated Problems Recent Progress Patient-Stated? Author Blood Pressure < 140/90 Blood Pressure 134/74( 025 4:06 PM EDT) No Denis Rodgers, PharmD documented as of this encounter Visit Diagnoses Diagnosis Hypomagnesemia Disorders of magnesium metabolism documented in this encounter Additional Health Concerns Assessment Noted Time PHQ-9 Depression Total Score: 12 024 10:26 AM EST documented as of this encounter Care Teams Manager Aerospace Relationship Specialty Start Date End Date Kathryn Jarquin MD [address] [place] [address] PCP - General Family Medicine 04/04/18 Denis Rodgers, Swapnil [address] [place] [address] Pharmacist Internal Medicine 10/22/22 documented as of this encounter
--- OUTSIDE RECORDS SUMMARY | 2024-11-29 08:48 | XMS_ITS | Encounter Summary ---
Author Organization [employer] Address [address] [place] [address] Care Team Providers Care Security Installer Name Role Phone Kathryn Jarquin MD Primary Care Provider [phone] Denis Rodgers PharmD Unavailable [phone] Encounter Details Date Type Department Care Team (Late st Contact Info) Description 03/26/[address] [facility] MEDICINE [address] [place] [address] Mya Garvey [place] Social History Tobacco Use [...] Description 12/04/2024 2:30 PM EDT Clinical Support [facility] CHC MED & PEDS [address] [place] [address] Rhonda Valdez, RN [address] [place] [address] 12/10/2024 3:00 PM EDT Medication Management [facility] MEDICINE [address] [place] [address] Denis Rodgers, PharmMirela [address] [place] [address] 02/22/2025 1:45 PM EST Office Visit [facility] OPTOMETRY [address] [place] [address] TarFrancesca garsia, OD [address] [place] [address] documented as of this encounter Goals Goal Patient Goal Type Associated Problems Recent Progress Patient-Stated? Author Blood Pressure < 140/90 Blood Pressure 134/74( 025 4:06 PM EDT) No Denis Rodgers, PharmD documented as of this encounter Procedures Procedure Name Priority Date/Time Associated Diagnosis Comments DIABETES EYE EXAM Routine 11/18/2023 documented in this encounter Results * Diabetes Eye Exam (11/18/2023) Eye Exam Normal Normal 11/18/2023 us Historical Provider HEALTH MAINTENANCE Final Result documented in this encounter Visit Diagnoses Not on filedocumented in this encounter Care Teams Security Installer Relationship Specialty Start Date End Date Kathryn Jarquin MD [address] [place] [address] PCP - General Family Medicine 04/04/18 Denis Rodgers, NamitaD [address] [place] [address] Pharmacist Internal Medicine 10/22/22 documented as of this encounter
--- OUTSIDE RECORDS SUMMARY | 2024-11-29 08:48 | XMS_ITS | Encounter Summary ---
Author Organization [email or web address] Address [address] [place] [address] Care Team Providers Care Firer Low Pressure Name Role Phone Kathryn Jarquin MD Primary Care Provider [phone] Denis Rodgers PharmD Unavailable [phone] Encounter Details Date Type Department Care Team (Late st Contact Info) Description 01/14/2023 Orders Only [facility] MEDICINE [address] [place] [address] Kathryn Jarquin MD [address] [place] [address] Stage 3b chronic kidney disease (CMS/HCC) (Primary [...] Description 12/04/2024 2:30 PM EDT Clinical Support [facility] CH[facility] MED & PEDS [address] [place] [address] Rhonda Valdez, DELFINA [address] [place] [address] 12/10/2024 3:00 PM EDT Medication Management [facility] [address] [place] [address] Denis Rodgers, PharmD [address] [place] [address] 02/22/2025 1:45 PM EST Office Visit [facility] OPTOMETRY [address] [place] [address] TarkaFrancesca, OD [address] [place] [address] documented as of this encounter Goals Goal [...] (CMS/HCC) documented in this encounter Care Teams Firer Low Pressure Relationship Specialty Start Date End Date Kathryn Jarquin MD [address] [place] [address] PCP - General Family Medicine 04/04/18 Denis Rodgers, PharmD [address] [place] [address] Pharmacist Internal Medicine 10/22/22 documented as of this encounter
== END 2024-11-29 08:17 | disposition home or self-care (01) ==
LOC: CF 08:16
PROVIDERS: Visit Provider Internal Medicine
DX: Z13.89 Encounter for screening for other disorder (principal)

== ENCOUNTER 2024-12-04 08:21 | Outpatient (AMB) | payer OTHER, SELFPAY ==
--- NOTE | 2024-12-04 08:34 | MHC.OFFVIS ---
Vital Signs 12/04/24 08:40 Height 3 ft 4 in Weight 166 lb BMI 72.9 Intake Visit Reasons: Right knee pain and giving way Intake Note: Wen is a 69 year old female who presents with complaints of progressively worsening bilateral knee pain, right greater than left. She describes her right knee pain as sharp in nature. She states that her right knee will give out several times per day. Her right knee pain has gotten worse over the last 4 years. She has had injections in the past which gave her minimal relief. She has failed the last 6 weeks of conservative treatment which has included a knee brace, physical therapy, Tylenol and anti-inflammatory medicines. She also reports intermittent low back pain. She denies any numbness or tingling in either lower extremity. Director Project Management Required: Yes Director Project Management Services: Director Project Management Present Director Project Management Name: Becyk Turner [id number] Allergies No Known Allergies (NO KNOWN ALLERGIES) Allergy (Unknown, Verified 12/04/24 08:41) UNKNOWN Medication List - Last Reconciled 12/04/24 by Kailash Watkins MD acetaminophen (Tylenol Extra Strength) 500 mg PO Q6H PRN amlodipine 5 mg PO DAILY aspirin (Adult Aspirin Regimen) 81 mg PO DAILY atorvastatin 80 mg PO BEDTIME chlorthalidone 25 mg PO DAILY cholecalciferol (vitamin D3) (Vitamin D3) 25 mcg PO DAILY clonazepam (Klonopin) 2 mg PO BEDTIME clonazepam 2 mg PO BEDTIME clonidine HCl 0.1 mg PO BID docusate sodium (Colace) 100 mg PO DAILY PRN fluoxetine 60 mg PO QAM glipizide 5 mg PO BID hydralazine 25 mg PO BID levothyroxine 50 mcg PO QAM linaclotide (Linzess) 290 mcg PO QAM lorazepam (Ativan) 1 mg PO ONCE mirtazapine 45 mg PO BEDTIME omeprazole 40 mg PO DAILY oxycodone 5 mg PO BEDTIME PRN oxycodone 5 mg PO Q8H PRN prazosin 1 mg PO BEDTIME quetiapine ER 200 mg PO BEDTIME tirzepatide (Mounjaro) 5 mg subcut [facility] Medical History Dysuria Chronic kidney disease Diabetes 1.5, managed as type 2 HTN (hypertension) KIRSTIE (stress urinary incontinence, female) Urge incontinence Chronic idiopathic constipation GERD (gastroesophageal reflux disease) Irritable bowel syndrome with constipation Surgical History H/O tubal ligation Hx of section H/O: hysterectomy History of esophagogastroduodenoscopy (EGD) Hx of colonoscopy Family History Father Family hx of prostate cancer Cancer Brother Cancer Mother HTN (hypertension) Maternal Aunt Skin cancer, Onset Age: 59 Social History Household Members: None Alcohol intake: never Patient Tobacco Use Status: Never used Tobacco Current occupational status: disabled Female Reproductive History Menstrual Age of Menarche: 12 Physical Exam Vital Signs: BMI result Body Mass Index 72.9 Const Other: Well-nourished well-developed very friendly female awake alert and oriented x3 in no acute distress Extrem Other: Right knee examination shows a minimal effusion, minimal crepitus with range of motion, tenderness along her medial joint line, positive Mariama's test, no instability Results Reviewed Results Reviewed: Standing full weight-bearing x-rays of the patient's right knee show mild diffuse joint space narrowing, no acute bony abnormalities MRI of the patient's right knee shows mild diffuse degenerative changes as well as a tear of the medial meniscus Assessment & Plan Assessment & Plan (1) Tear of medial meniscus of right knee: Code(s): S83.241A - Other tear of medial meniscus, current injury, right knee, initial encounter Category: Medical Plan Ms Moran presents with progressively worsening right knee pain and mechanical symptoms due to a medial meniscus tear. I had a lengthy discussion with the patient regarding the treatment options. At this point she has failed continued non operative treatments. The risks and benefits of right knee arthroscopic surgery were discussed at length with the patient. The patient wishes to proceed with surgery. Surgery will involve right knee arthroscopic partial medial meniscectomy. She will be scheduled for next available date. She will follow-up as instructed. Feel free to call me at any time should questions regarding her orthopedic management arise. I spent 20 minutes in reviewing the patient's records and imaging studies, seeing the patient and documenting in the medical record. Coding Level of Care Code Est Pt Level 3 (23232) Complex EM visit Add On G2305 Diagnoses Tear of medial meniscus of right knee S82.607N
[2024-12-04 08:40] VITALS: BMI 72.9
--- OUTSIDE RECORDS SUMMARY | 2024-12-04 09:00 | XMS_ITS | Encounter Summary ---
Author Organization [facility], Address [address] [place] [address] Phone Care Team Providers Care Outside Sales Name Role Phone Kathryn Jarquin MD Primary Care Provider [phone] Encounter Details Date Type Department Care Team (Late st Contact Info) Description 09/07/2023 Documentation Only [facility], [address] [place] [address] [address] Luna [address] [place] [address] Social History Tobacco Use Types [...] on filedocumented in this encounter Care Teams Outside Sales Relationship Specialty Start Date End Date Kathryn Jarquin MD [address] [place] [phone] PCP - General Family Medicine 08/31/23 documented as of this encounter
--- OUTSIDE RECORDS SUMMARY | 2024-12-04 09:00 | XMS_ITS | Clinical Summary ---
Author Organization [facility] Address [address] [facility] [address] [place] [address] Phone Care Team Providers Care Vice President Of Customer Service Name Role Phone Kathryn Jarquin MD Primary Care Provider [phone] Allergies No known active allergies Active Problems [...] Last Assessment & Plan: -follow up with inspector set up and lay out -avoid nephrotoxic drugs -adjust medication: metformin ER [...] patient's age to complete this topic Insurance [facility] One Care Dual SNP ([id number]) [place] [address] Care Teams Vice President Of Customer Service Relationship Specialty Start Date End Date Kathryn Jarquin MD [address] [place] [address] PCP - General Family Medicine 08/31/23
== END 2024-12-04 08:55 | disposition home or self-care (01) ==
LOC: HO.HOS 08:22
PROVIDERS: PCP Family Medicine; Visit Provider Orthopaedic Surgery
DX: S83.241A Other tear of medial meniscus, current injury, right knee, initial encounter (principal)
CPT/HCPCS: 99214; G2211

== ENCOUNTER → 2024-12-04 08:21 | Outpatient (BNVA) | payer OTHER, SELFPAY | PROVIDERS: PCP Family Medicine; Visit Provider Orthopaedic Surgery | DX: M25.561 Pain in right knee (principal); M25.562 Pain in left knee; S83.241A Other tear of medial meniscus, current injury, right knee, initial encounter; M54.50 Low back pain, unspecified | CPT/HCPCS: 99212 ==

== ENCOUNTER 2024-12-17 08:08 | Outpatient (REF) | payer OTHER, SELFPAY ==
[2024-12-17 12:07] LABS: Alanine Aminotransferase 8 U/L (0-31); Albumin Level 4.4 g/dL (3.5-5.0); Alkaline Phosphatase 125 U/L (39-117); Anion Gap 17 (12-20); Aspartate Amino Transferase 17 U/L (5-31); Blood Urea Nitrogen 24 mg/dL (9-16); Calcium 9.5 mg/dL (8.4-10.2); Carbon Dioxide 24 mmol/L (22-29); Chloride 103 mmol/L (96-108); Estimated Glomerular Filt Rate 37; Potassium 3.2 mmol/L (3.3-5.1); Sodium 141 mmol/L (135-145); Total Protein 7.4 g/dL (6.5-8.0)
== END 2024-12-17 08:09 | disposition home or self-care (01) ==
LOC: HO.HHCL 08:08
PROVIDERS: PCP Family Medicine; Referring Provider Internal Medicine Hypertension Specialist; Visit Provider Family Medicine
DX: I12.9 Hypertensive chronic kidney disease with stage 1 through stage 4 chronic kidney disease, or unspecified chronic kidney disease (principal); N18.4 Chronic kidney disease, stage 4 (severe)
CPT/HCPCS: 36415; 80053

== ENCOUNTER 2024-12-19 13:12 | Outpatient (REF) | payer OTHER, SELFPAY ==
--- OUTSIDE RECORDS SUMMARY | 2024-12-19 14:00 | XMS_ITS | Encounter Summary ---
Author Organization [employer] Address 75 [facility] 7t [place] [address] Care Team Providers Care Overnight Cashier Name Role Phone Kathryn Jarquin MD Primary Care Provider [phone] Denis Rodgers PharmD Unavailable [phone] Reason for Visit * Reason Comments Pre-op Exam Encounter Details Date Type Department Care Team ([facility] st Contact Info) Description 12/19/2024 2:00 PM EDT Office Visit [facility] MEDICINE [address] [place] [address] Dara Hayes MD [address] [place] [address] Pre-operative exam (Primary Dx); Stage 4 chronic kidney disease (CMS/HCC); Severe obesity (BMI 35.0-39.9) with comorbidity (CMS/HCC); Type 2 diabetes mellitus with stage [...] AM EDT documented as of this encounter Last Filed Vital Signs Vital Sign Reading Time Taken Comments Blood Pressure 122/64 12/19/2024 2:28 PM EDT Pulse 66 12/19/2024 2:28 PM EDT Temperature 36.3 C (97.4 F) 12/19/2024 2:28 PM EDT Respiratory Rate 20 12/19/2024 2:28 PM EDT Oxygen Saturation - - Inhaled Oxygen Concentration - - Weight 70.6 kg (155 lb 9.6 oz) 12/19/2024 2:28 P M EDT Height 144.8 cm (4' 9 ) 12/19/2024 2:28 PM EDT Body Mass Index 33.67 12/19/2024 2:28 PM EDT documented in this encounter Plan of Treatment Upcoming Encounters Date Type Department Care Team (Late st Contact Info) Description 01/21/2025 3:00 PM EDT Medication Management [facility] MEDICINE [address] [place] [address] Denis Rodgers, PharmD [address] [place] [address] 01/24/2025 10:15 AM EDT Office Visit [facility] MEDICINE [address] [place] [address] Kathryn Jarquin MD [address] [place] [address] 02/05/2025 3:00 PM EST Clinical Support [facility] CHC MED & PEDS [address] [place] [address] Rhonda Valdez, DELFINA [address] [place] [address] 02/22/2025 1:45 PM EST Office Visit [facility] OPTOMETRY [address] [place] [address] Francesca Martinez, OD [address] [place] [address] Scheduled Orders Name Type Priority Associated Diagnoses Orde r Schedule CBC auto differential Lab Routine Pre-operative exam Expected: 12/19/2024 (Approximate), Expires: 12/19/2025 documented as of this encounter Goals Goal Patient Goal Type Associated Problems Recent Progress Patient-Stated? Author Blood Pressure < 140/90 Blood Pressure 122/64( 025 2:28 PM EDT) No Denis Rodgers, PharmD documented as of this encounter Procedures Procedure Name Priority Date/Time Associated Diagnosis Comments POCT GLYCATED HEMOGLOBIN, TOTAL Routine 12/19/2024 2:48 PM EDT Type 2 diabetes mellitus with stage 3b chronic kidney disease, without long-term current use of insulin ([facility]) POCT GLUCOSE Routine 12/19/2024 2:29 PM EDT Type 2 diabetes mellitus with stage 3b chronic kidney disease, without long-term current use of insulin ([facility]) documented in this encounter Results * (ABNORMAL) POCT Hgb A1c (12/19/2024 2:48 PM EDT) Hemoglobin A1C 7.4(A) 4.0 - 5.7 % QC Media Lot # [id number] Lot# Expiration Date Blood 12/19/2024 2:48 PM EDT Dara Hayes MD POINT OF CARE TEST ENTER/EDIT ORDERABLES Final Result * POCT Glucose (12/19/2024 2:29 PM EDT) Glucose Blood, POC 196 60 - 200 mg/dL QC Media Lot # [id number] Lot# Expiration Date Blood Capillary blood specimen / Unknown 12/19/2024 2:29 PM EDT Dara Hayes MD POINT OF CARE TEST ENTER/EDIT ORDERABLES Final Result documented in this encounter Visit Diagnoses Diagnosis Pre-operative exam- Primary Unspecified pre-operative examination Stage 4 chronic kidney disease (CMS/HCC) Severe obesity (BMI 35.0-39.9) with comorbidity (CMS/HCC) Type 2 diabetes mellitus with stage 3b chronic kidney disease, without long-term current use of insulin (CMS/HCC) documented in this encounter Additional Health Concerns Assessment Noted Time PHQ-9 Depression Total Score: 12 024 10:26 AM EST documented as of this encounter Care Teams Overnight Cashier Relationship Specialty Start Date End Date Kathryn Jarquin MD [address] [place] [address] PCP - General Family Medicine 04/04/18 Denis Rodgers PharmD [address] [place] [address] Pharmacist Internal Medicine 10/22/22 documented as of this encounter
[2024-12-19 16:28] LABS: Anion Gap 15 (12-20); Blood Urea Nitrogen 31 mg/dL (9-16); Calcium 9.7 mg/dL (8.4-10.2); Carbon Dioxide 26 mmol/L (22-29); Chloride 103 mmol/L (96-108); Cholesterol 237 mg/dL (<200); Estimated Glomerular Filt Rate 35; HDL Cholesterol 54 mg/dL (>40); Magnesium 1.7 mg/dL (1.6-2.6); Potassium 3.7 mmol/L (3.3-5.1); Sodium 140 mmol/L (135-145); Triglycerides 181 mg/dL (<150)
--- OUTSIDE RECORDS SUMMARY | 2024-12-19 16:51 | XMS_ITS | Encounter Summary ---
Author Organization [employer] Address [address] [facility] [address] [place] [address] Care Team Providers Care Sugar Presser Name Role Phone Kathryn Jarquin MD Primary Care Provider [phone] Denis Rodgers PharmD Unavailable [phone] Encounter Details Date Type Department Care Team (Late st Contact Info) Description 12/17/2024 Orders Only [facility] [address] [place] [address] Kathryn Jarquin MD [address] [place] [address] Hypokalemia (Primary Dx) Social History Tobacco Use Types Packs/Day Years [...] Upcoming Encounters Date Type Department Care Team ([facility] st Contact Info) Description 01/21/2025 3:00 PM EDT Medication Management [facility] MED[facility]INE [address] [place] [phone] Denis Rodgers, PharmD [address] [place] [address] 01/24/2025 10:15 AM EDT Office Visit [facility]INE [address] [place] [address] Kathryn Jarquin MD [address] [place] [address] 02/05/2025 3:00 PM EST Clinical Support [facility] MED [facility] PEDS [address] [place] [address] Rhonda Valdez, RN 505 [place] [address] 02/22/2025 1:45 PM EST Office Visit [facility] OPTOMETRY [address] [place] [address] Francesca Martinez, OD [address] [place] [address] Scheduled Orders Name Type Priority Associated Diagnoses Orde r Schedule Basic Metabolic Panel Lab Routine Hypokalemia Expected: 12/17/2024 (Approximate), Expires: 12/17/2025 documented as of this encounter Goals Goal Patient Goal Type Associated Problems Recent Progress Patient-Stated? Author Blood Pressure < 140/90 Blood Pressure 122/64( 025 2:28 PM EDT) No Denis Rodgers, Swapnil documented as of this encounter Procedures Procedure Name Priority Date/Time Associated Diagnosis Comments MAGNESIUM Routine 12/19/2024 1:34 PM EDT Hypokalemia documented in this encounter Results * Magnesium (12/19/2024 1:34 PM EDT) Magnesium 1.7 1.6 - 2.6 mg/dL [facility] Blood Venous blood specimen / Unknown 12/19/2024 1:34 PM EDT 12/19/2024 4:03 PM EDT Kathryn Jarquin MD LAB BLOOD ORDERABLES Final Resul t [facility] [address] [place] [address] [phone] documented in this encounter Visit Diagnoses Diagnosis Hypokalemia- Primary Hypopotassemia documented in this encounter Additional Health Concerns Assessment Noted Time PHQ-9 Depression Total Score: 12 03/29/ 024 10:26 AM EST documented as of this encounter Care Teams Sugar Presser Relationship Specialty Start Date End Date Kathryn Jarquin MD [address] [place] [address] PCP - General Family Medicine 04/04/18 Denis Rodgers, PharmD [address] [place] [address] Pharmacist Internal Medicine 10/22/22 documented as of this encounter
--- OUTSIDE RECORDS SUMMARY | 2024-12-19 16:51 | XMS_ITS | Encounter Summary ---
Author Organization [employer] Address [address] [facility] [address] [place] [address] Care Team Providers Care Clerk Specialist Name Role Phone Kathryn Jarquin MD Primary Care Provider [phone] Denis Rodgers PharmD Unavailable [phone] Encounter Details Date Type Department Care Team (Latest Contact Info) Description 12/19/2024 Travel Social History Tobacco Use Types Packs/Day [...] Description 01/21/2025 3:00 PM EDT Medication Management [facility]INE [address] [place] [address] Denis Rodgers, PharmD [address] [place] [address] 01/24/2025 10:15 AM EDT Office Visit [facility] MEDICINE [address] [place] [address] Kathryn Jarquin MD [address] [place] [address] 02/05/2025 3:00 PM EST Clinical Support [facility] MED [facility] PEDS [address] [place] [address] Rhonda Valdez, RN [address] [place] [address] 02/22/2025 1:45 PM EST Office Visit [facility] OPTOMETRY [address] [place] [address] Francesca Martinez, OD [address] [place] [address] documented as of this encounter Goals Goal [...] documented as of this encounter Care Teams Clerk Specialist Relationship Specialty Start Date End Date Kathryn Jarquin MD [address] [place] [address] PCP - General Family Medicine 04/04/18 Denis Rodgers, NamitaD [address] [place] [address] Pharmacist Internal Medicine 10/22/22 documented as of this encounter
--- OUTSIDE RECORDS SUMMARY | 2024-12-19 16:51 | XMS_ITS | Encounter Summary ---
Author Organization [employer] Address [address] [facility] 7t [place] [address] Care Team Providers Care Radiagraph Operator Name Role Phone Kathryn Jarquin MD Primary Care Provider [phone] Denis Rodgers PharmD Unavailable [phone] Reason for Visit * Reason Comments Med Refill Encounter Details Date Type Department Care Team ([facility] st Contact Info) Description 12/19/[address] [facility] MED[facility]INE [address] [place] [address] Kathryn Jarquin MD [address] [place] [address] Upper back pain; Chronic pain of both [...] Upcoming Encounters Date Type Department Care Team ([facility] Contact Info) Description 01/21/2025 3:00 PM EDT Medication Management [facility] MEDICINE [address] [place] [phone] Denis Rodgers, PharmD [address] [place] [address] 01/24/2025 10:15 AM EDT Office Visit [facility] MEDICINE [address] [place] [address] Kathryn Jarquin MD [address] [place] [address] 02/05/2025 3:00 PM EST Clinical Support [facility] CHC MED & PEDS [address] [place] [address] Rhonda Valdez, RN [address] [place] [address] 02/22/2025 1:45 PM EST Office Visit [facility] OPTOMETRY [address] [place] [address] Francesca Martinez, OD [address] [place] [address] documented as of this encounter Goals Goal [...] documented as of this encounter Care Teams Radiagraph Operator Relationship Specialty Start Date End Date Kathryn Jarquin MD 230 [place] [address] PCP - General Family Medicine 04/04/18 Denis Rodgers, PharmD [address] [place] [address] Pharmacist Internal Medicine 10/22/22 documented as of this encounter
--- OUTSIDE RECORDS SUMMARY | 2024-12-19 16:51 | XMS_ITS | Encounter Summary ---
Author Organization [employer] Address [address] [facility] 7[address] [place] [address] Care Team Providers Care Outpatient Surgery Rn Name Role Phone Kathryn Jarquin MD Primary Care Provider [phone] Denis Rodgers PharmD Unavailable [phone] Reason for Visit * Reason Onset Date Comments chart prep 12/18/2024 Encounter Details Date Type Department Care Team ([facility] st Contact Info) Description 12/18/2024 Telephone [facility] [address] [place] [address] Kathryn Jarquin MD [address] [place], [place] [phone] chart prep Social History Tobacco Use Types Packs/Day Years [...] encounter Miscellaneous Notes * Telephone Encounter - Jaky Jensen [place] - 12/18/2024 1:43 PM EDT Chart Prep Labs: not done lvm to complete Images: done Referrals: not applicable Vaccines due: Covid, Flu, RSV, and Zoster Screenings: eye exam Overdue care gaps: A1c, Glucose, PHQ-9, and ANA-7 documented in this encounter Plan of Treatment Upcoming Encounters Date Type Department Care Team (Late st Contact Info) Description 01/21/2025 3:00 PM EDT Medication Management [facility] [address] [place] [address] Denis Rodgers, NamitaD [address] [place] [address] 01/24/2025 10:15 AM EDT Office Visit [facility] [address] [place] [address] Kathryn Jarquin MD [address] [place] [address] 02/05/2025 3:00 PM EST Clinical Support [facility] MED [facility] PEDS [address] [place] [address] Rhonda Valdez, RN 505 [place] [address] 02/22/2025 1:45 PM EST Office Visit [facility] OPTOMETRY [address] [place], [place] [phone] Francesca Martinez, OD [address] [place] [address] documented as of this encounter Goals Goal [...] documented as of this encounter Care Teams Outpatient Surgery Rn Relationship Specialty Start Date End Date Kathryn Jarquin MD [address] [place] [address] PCP - General Family Medicine 04/04/18 Denis Rodgers, PharmD [address] [place] [phone] Pharmacist Internal Medicine 10/22/22 documented as of this encounter
--- OUTSIDE RECORDS SUMMARY | 2024-12-19 16:51 | XMS_ITS | Encounter Summary ---
Author Organization [employer] Address [address] [facility] [address] [place] [address] Care Team Providers Care Animal Anatomy Teacher Name Role Phone Kathryn Jarquin MD Primary Care Provider [phone] Denis Rodgers PharmD Unavailable [phone] Encounter Details Date Type Department Care Team (Late st Contact Info) Description 03/26/2024 Abstract [facility] [address] [place] [address] Mya Garvey [place] Social History Tobacco Use [...] Description 01/21/2025 3:00 PM EDT Medication Management [facility] [address] [place] [phone] Denis Rodgers, PharmD [address] [place] [address] 01/24/2025 10:15 AM EDT Office Visit [facility] MED[facility] [address] [place] [address] Kathryn Jarquin MD [address] [place] [address] 02/05/2025 3:00 PM EST Clinical Support [facility] PEDS [address] [place] [address] Rhonda Valdez, DELFINA 505 [place] [address] 02/22/2025 1:45 PM EST Office Visit [facility] OPTOMETRY [address] [place] [address] Francesca Martinez OD [address] [place] [address] documented as of this encounter Goals Goal Patient Goal Type Associated Problems Recent Progress Patient-Stated? Author Blood Pressure < 140/90 Blood Pressure 122/64( 025 2:28 PM EDT) No Rodgers, Denis, PharmD documented as of this encounter Procedures Procedure Name Priority Date/Time Associated Diagnosis Comments DIABETES EYE EXAM Routine 11/18/2023 documented in this encounter Results * Diabetes Eye Exam (11/18/2023) Eye Exam Normal Normal 11/18/2023 Historical Provider HEALTH MAINTENANCE Final Result documented in this encounter Visit Diagnoses Not on filedocumented in this encounter Care Teams Animal Anatomy Teacher Relationship Specialty Start Date End Date Kathryn Jarquin MD [address] [place] [address] PCP - General Family Medicine 04/04/18 Denis Rodgers, PharmD [address] [place] [address] Pharmacist Internal Medicine 10/22/22 documented as of this encounter
--- OUTSIDE RECORDS SUMMARY | 2024-12-19 16:51 | XMS_ITS | Clinical Summary ---
Author Organization [employer] Address [address] [place] [address] Care Team Providers Care It Integration Architect Name Role Phone Kathryn Jarquin MD Primary Care Provider Denis Rodgers PharmD Unavailable Allergies No known active allergies Medications * [...] TAKE 1 CAPSULE ORALLY DAILY 023 Active albuterol (2.5 MG/3ML) 0.083% nebulizer solution INHALE 1 AMPULE USING A NEBULIZER EVERY 6 HOURS NEEDED FOR SHORTNESS OF BREATH 90 mL 1 024 Active chlorthalidone (Hygroton) 25 MG tabletIndicatio [...] each Active Blood Glucose Monitoring Suppl (FreeStyle [place] Lite) w/Device kit Use to test blood sugar 2 times daily 1 kit Active insulin degludec (Tresiba FlexTouch) 100 UNIT/ML [...] disease, without long-term current use of insulin ([facility]) Chew 4 tablets (16 g) if needed for low blood sugar. 30 tablet 2025 Active pen needle 32G x 4 mm miscIndications :Type 2 diabetes mellitus with stage 3b chronic kidney disease, without long-term current use of insulin (CMS/HCC) Use daily with insulin 100 each 025 2025 Active atorvastatin (Lipitor) 80 MG tablet TAKE 1 TABLET BY MOUTH AT BEDTIME 90 tablet Active Aspirin EC Adult Low Dose 81 MG EC tablet TAKE 1 TABLET BY MOUTH AT BEDTIME 90 tablet 3 Active estradiol (Estrace) 0.1 MG/GM vaginal cream INSERT 1 GRAM VAGINALLY WITH APPLICATORFUL AT BEDTIME TWICE EACH WEEK Active Tirzepatide (Mounjaro) 5 MG/0.5ML solution auto-injectorIn dications:Type 2 diabetes mellitus with stage 3b chronic kidney disease, without long-term current use of insulin (CMS/HCC) Inject 5 mg under the skin 1 (one) time per week. 2 mL 5 Active Continuous Glucose Mold Checker (FreeStyle Godfrey 3 Aurora) deviceIndicatio ns:Type 2 diabetes mellitus with stage 3b chronic kidney disease, without long-term current use of insulin (CMS/HCC) 1 each Once per day. Use as directed for CGM 1 each Active Continuous Glucose Sensor (FreeStyle Godfrey 3 Plus Sensor) miscIndications :Type 2 diabetes mellitus with stage 3b chronic kidney disease, without long-term current use of insulin (CMS/HCC) 1 each every 15 days. Apply 1 every 15 days as directed for CGM 2 each Active glucose blood (FreeStyle Precision Edi Test) test stripIndication s:Type 2 diabetes mellitus with stage 3b chronic kidney disease, without long-term current use of insulin ([facility]/HCC) Use to test blood sugar 2 times daily in case of CGM failure or extremes of BG 50 each 025 2025 Active oxyCODONE (Roxicodone) 5 MG immediate release tabletIndicatio ns:Upper back pain,Chronic pain of both knees,Chronic female pelvic pain,Chronic pain syndrome TAKE 1 TABLET BY MOUTH EVERY DAY AT BEDTIME NEEDED FOR SEVERE PAIN 28 tablet 025 Active Premarin 0.625 MG/GM creamIndication s:Subacute and chronic vaginitis INSERT 1 APPLICATORFUL VAGINALLY ONCE DAILY AT BEDTIME FOR 2 WEEKS, THEN USE 1 APPLICATORFUL TWICE WEEKLY 30 g 3 023 2024 Discontinued(D uplicate order (will not trigger notification to Pharmacy)) atorvastatin (Lipitor) 80 MG tablet TAKE 1 TABLET BY MOUTH AT BEDTIME 90 tablet 3 024 2024 Discontinued Aspirin EC Adult Low Dose 81 MG EC tablet TAKE 1 TABLET BY MOUTH AT BEDTIME 90 tablet 3 024 2024 Discontinued Tirzepatide (Mounjaro) 7.5 MG/0.5ML solution auto-injectorIn dications:Type 2 diabetes mellitus with stage 3b chronic kidney disease, without long-term current use of insulin ([facility]) Inject 7.5 mg under the skin 1 (one) time per week. 2 mL 11 025 2024 Discontinued(D ose adjustment) oxyCODONE (Roxicodone) 5 MG immediate release tabletIndicatio ns:Upper back pain,Chronic pain of both knees,Chronic female pelvic pain,Chronic pain syndrome Take 1 tablet (5 mg) by mouth if needed at bedtime for severe pain. 28 tablet 025 2024 Discontinued Active Problems Problem Noted Date Diagnosed Date Stage 4 chronic kidney disease 12/19/2024 Severe obesity (BMI 35.0-39.9) with comorbidity 12/19/2024 Chronic back pain 10/29/2024 Assessment & Plan (10/29/2024 12:17 PM EDT): - lumbar spondylosis - following with [facility] pain management, plan for MBB. - Patient will call to reschedule appointment - continue judicious use of APAP and oxycodone - avoid NSAID/COX2i Type 2 diabetes mellitus wit hout complication, with long-term current use of insulin 10/03/2024 Long-term current use of opiate analgesic 2024 [...] (08/07/2024 9:08 AM EDT): - followed by [facility] GI - Work on achieving healthy weight and diet Assessment & Plan (04/05/2024 5:43 AM EST): - followed by [facility] GI - Work on achieving healthy weight and diet Assessment & Plan (05/08/2023 12:06 PM EST): - followed by [facility] GI - Work on achieving healthy weight and diet Knee pain 01/07/2023 Assessment & Plan (10/29/2024 12:10 PM EDT): - following with [facility] Ortho, last seen in July 2024 - [...] (08/12/2024 6:43 AM EDT): - following with [facility] Ortho - MRI on 08/26/24: subtle radial [...] (05/08/2023 12:02 PM EST): - colonoscopy on 1/12/24 - fiber-rich diet Right hip pain 12/02/2022 Assessment & Plan (08/12/2024 6:39 AM EDT): - following with ortho and pain management - judicious use of oxycodone Abdominal pain, lower 08/09/2022 Assessment & Plan (08/12/2024 6:33 AM EDT): - taking oxycodone under MATERIALS SUPERVISOR agreement since Mar 2024 - evaluated by director of market analysis and given reassurance for no gynecological abnormality - upcoming appointment with GI and pain management - continue current behavioral health service Assessment & Plan (04/05/2024 5:40 AM EST): - Takes non-prescribed oxycodone to try and relieve the pain and help her sleep - Will start at low dose oxycodone only one at bedtime; discussed about its judicious use and the importance of attending MATERIALS SUPERVISOR appt Assessment & Plan (10/30/2022 4:06 PM EDT): - seen by urogynecologist, director of market analysis, general surgeon, and GI - Will check [...] (08/12/2022 4:18 PM EDT): - seen by director of market analysis, general surgeon, and GI - Will check [...] last seen in 2020 - seen by [facility] in September 2023 - check UA/ UCx - hold restarting oxybutynin due to current urinary retention - advised to reschedule appointment with urogyn Assessment & Plan (05/08/2023 12:09 PM EST): - Hx OAB, on oxybutynin, previously following with Dr. Peñaloza, last seen in 2020 - seen by [facility] in August 2022, upcoming follow-up appt - check UA/ UCx - hold restarting oxybutynin due to current urinary retention Assessment & Plan (10/30/2022 4:09 PM EDT): - Hx OAB, on oxybutynin, previously following with Dr. Peñaloza, last seen in 2020 - seen by [facility] in August 2022, upcoming [...] Plan (10/29/2024 12:14 PM EDT): -following with register clerk, last seen in May 2024 -avoid nephrotoxic drugs -no longer on metformin or ACEI/ARB -consider SGLT2i (relative contraindication due to LUTS) Assessment & Plan (08/12/2024 6:38 AM EDT): -following with register clerk, last seen in May 2024 -avoid nephrotoxic drugs -no longer on metformin or ACEI/ARB -consider SGLT2i Assessment & Plan (04/05/2024 5:47 AM EST): -following with register clerk, last seen in Nov 2023 -avoid nephrotoxic drugs -no longer on metformin -consider SGLT2i Assessment & Plan (05/08/2023 12:00 PM EST): -following with register clerk -avoid nephrotoxic drugs -no longer on metformin -clarify with GI whether patient needs to be on PPI Assessment & Plan (10/30/2022 4:11 PM EDT): -follow up with register clerk -avoid nephrotoxic drugs -adjust medication: metformin ER to 500 mg bid - lab review: 08/10/22 K 4.6; BUN 28; Scr 1.0 ; eGFR 56; Bicarb 28 Assessment & Plan (08/09/2022 11:50 AM EDT): -follow up with register clerk -avoid nephrotoxic drugs -adjust medication: metformin ER to 500 mg bid Assessment & Plan (06/03/2022 2:31 AM EST): -refer to register clerk -avoid nephrotoxic drugs -adjust medication: metformin ER [...] September 2024. S/p hysterectomy. Benign finding. -Started MATERIALS SUPERVISOR with oxycodone 5 mg at night since Mar 2024 -Last MATERIALS SUPERVISOR visit on 08/01/24, pill count suggested misuse. [...] & Plan (08/12/2024 6:31 AM EDT): -Started MATERIALS SUPERVISOR with oxycodone 5 mg at night since Mar 2024 -Last MATERIALS SUPERVISOR visit on 4/30/25, pill count suggested misuse. Reviewed our agreement [...] to start oxycodone under close monitoring with MATERIALS SUPERVISOR program; patient verbalized understanding -Discussed about increased [...] (08/07/2024 9:07 AM EDT): - followed by [facility] GI - check whether patient needs to be on PPI or can be changed to H2-hao as recommended by register clerk Assessment & Plan (05/08/2023 12:02 PM EST): - followed by [facility] GI - check whether patient needs to be on PPI or can be changed to H2-hao as recommended by register clerk Generalized anxiety disorder with panic attacks 01/23/2015 Assessment & Plan (04/05/2024 5:54 AM EST): -tremor, patient is able to stop tremor voluntarily -check TSH Assessment & Plan (06/03/2022 2:23 AM EST): -tremor -check TSH Irritable bowel syndrome 01/23/2015 Assessment & Plan (08/07/2024 9:07 AM EDT): GI: [facility], last visit in Apr 2023 Current medication: Linzess 290 mg daily Normal EGD and colonoscopy in [facility] in Jan 2013. Colonoscopy in Apr 2023 by [facility] GI, hyperplastic polyp. Repeat in 5 years. Assessment & Plan (04/05/2024 5:45 AM EST): GI: [facility], last visit in Apr 2023 Current medication: Linzess 290 mg daily Normal EGD and colonoscopy in [facility] in Jan 2013. Colonoscopy in Apr 2023 by [facility] GI, hyperplastic polyp. Repeat in 5 years. Assessment & Plan (10/30/2022 4:20 PM EDT): GI: [facility], last visit in 08/04/22 Current medication: Linzess 290 mg daily Normal EGD and colonoscopy in [facility] in Jan 2013. Anticipating another colonoscopy soon Assessment & Plan (08/12/2022 4:19 PM EDT): GI: [facility], last visit in 08/04/22 Current medication: Linzess 290 mg daily Normal EGD and colonoscopy in [facility] in Jan 2013. Anticipating another colonoscopy soon Assessment & Plan (06/03/2022 2:15 AM EST): GI: [facility], last visit in 08/11/21 Current medication: Linzess 290 mg daily Normal EGD and colonoscopy in [facility] in Jan 2013. Pt has to reschedule colonoscopy with GI Specialist Encouraged medication compliance Pt seems to have changed GI; will confirm Recurrent major depression 01/23/2015 Assessment & Plan (10/29/2024 12:15 PM EDT): -[facility] provider: [facility] -Continue current medications: clonazepam; fluoxetine; prazosin; clonidine; quetiapine Assessment & Plan (04/05/2024 5:54 AM EST): -[facility] provider: [facility] -Continue current medications: clonazepam; fluoxetine; prazosin; clonidine; quetiapine Assessment & Plan (05/08/2023 12:22 PM EST): -[facility] provider: [facility] -Continue current medications: clonazepam; fluoxetine; prazosin; clonidine; quetiapine Assessment & Plan (10/30/2022 4:18 PM EDT): -[facility] provider: [facility] -Continue current medications: clonazepam; fluoxetine; prazosin; clonidine; quetiapine Assessment & Plan (06/03/2022 2:22 AM EST): -[facility] provider: [facility] -Continue current medications: clonazepam; fluoxetine; prazosin; clonidine; [...] with Denis Rodgers RPh through CD[facility] and register clerk -Work on lifestyle modifications, DASH diet and increase physical activity -continue amlodipine 5 mg daily -continue chlorthalidone 25 mg daily -continue Hydralazine 25 mg BID (register clerk seems to be unaware of medication, will [...] with Denis Rodgers RPh through [facility] and register clerk -Work on lifestyle modifications, DASH diet and increase physical activity -continue amlodipine 5 mg daily -continue chlorthalidone 25 mg daily -continue Hydralazine 25 mg BID (register clerk seems to be unaware of medication, will [...] with Denis Rodgers RPh through CDTM and register clerk -Work on lifestyle modifications, DASH diet and increase physical activity -continue amlodipine 5 mg daily -continue chlorthalidone 12.5 mg daily -continue Hydralazine 25 mg BID (register clerk seems to be unaware of medication, will [...] - Comanaged with Denis Rodgers RPh through [facility]ADIETM and register clerk -Work on lifestyle modifications, DASH diet and increase physical activity -continue lisinopril 20 mg daily -continue chlorthalidone 12.5 mg daily -continue Hydralazine 25 mg BID (register clerk seems to be unaware of medication, will [...] goal today - Comanaged with Denis Rodgers [facility] through [facility]TM -Work on lifestyle [...] UTI/vaginal candidiasis / UI. Last eye exam: [facility]. Nov 2023. Last foot exam: 05/02/23 Last [...] UTI/vaginal candidiasis / UI. Last eye exam: [facility]. Nov 2023. Last foot exam: 05/02/23 Last [...] Encounters Date Type Department Care Team Description 12/19/2024 2:00 PM EDT Office Visit [facility] [address] [place] [phone] Dara Hayes MD Pre-operative exam (Primary Dx); Stage 4 chronic kidney disease (CMS/HCC); Severe obesity (BMI 35.0-39.9) with comorbidity (CMS/HCC); Type 2 diabetes mellitus with stage 3b chronic kidney disease, without long-term current use of insulin ([facility]) 12/19/2024 Orders Only GENERIC EXTERNAL DATA DEPARTMENT Provider, Generic External Data 12/19/2024 Refill [facility] [address] [place] [phone] Kathryn Jarquin MD Upper back pain; Chronic pain of both knees; Chronic female pelvic pain; Chronic pain syndrome 12/19/2024 Travel 12/18/2024 Telephone [facility] [address] [place] [address] Kathryn Jarquin MD chart prep 12/17/2024 Orders Only [facility] [address] Kathryn Jarquin MD Hypokalemia (Primary Dx) 12/17/2024 Results Follow-Up [address] [address] Kathryn Jarquin MD Comprehensive Metabolic Panel 12/10/2024 Travel 12/04/2024 2:30 PM EDT Clinical Support [facility] [address] [place] [address] Rhonda Valdez, medical practitioners pain of both knees 12/04/[address] [address] Kathryn Jarquin MD Pre Op Appt request 12/04/2024 Travel 11/28/[address] [address] Kathryn Jarquin MD 11/15/[address] [address] Kathryn Jarquin MD Upper back pain; Chronic pain of both knees; Chronic female pelvic pain; Chronic pain syndrome 11/12/[address] [address] Kathryn Jarquin MD 11/09/[address] [address] Kathryn Jarquin MD chart prep 11/07/2024 Orders Only [facility] External Provider, [facility] 11/02/2024 Travel 11/02/2024 Patient Outreach [address] [address] Kathryn Jarquin MD Pre-visit Planning (Pre-visit planning - LVM ) 10/30/2024 Travel 10/30/2024 Telephone [facility] [address] [place] [address] Rhonda Valdez RN MATERIALS SUPERVISOR 10/29/2024 9:00 AM EDT Office Visit [address] [address] Kathryn Jarquin MD Hypertension, unspecified type (Primary [...] whether sciatica present 10/29/2024 Travel 10/26/2024 Telephone [facility] [address] [place] [address] Kathryn Jarquin MD Chart Prep 10/23/2024 10:00 AM EDT Office Visit [facility] [address] [place] [address] Art, Nadine, OD Type 2 diabetes mellitus with retinopathy of both eyes, with long-term current use of insulin, macular edema presence unspecified, unspecified retinopathy severity (CMS/HCC) (Primary Dx) 10/23/2024 Travel 10/19/2024 Telephone [facility] [address] [place] [address] Kathryn Jarquin MD FYI 10/16/2024 Patient Outreach [facility] [address] [place], [place] [phone] Kathryn Jarquin MD Transition Of Care (Tcm) (HDF scheduled. ) 10/03/2024 Orders Only GENERIC EXTERNAL DATA DEPARTMENT Provider, Generic External Data 10/02/2024 Orders Only GENERIC EXTERNAL DATA DEPARTMENT Provider, Generic External Data 10/01/2024 Results Follow-Up [facility] [address] [place] [address] Kathryn Jarquin MD Glucose, Whole Blood, Glucose, Whole Blood 10/01/2024 Orders Only GENERIC EXTERNAL DATA DEPARTMENT Provider, Generic External Data 09/30/2024 Orders Only GENERIC EXTERNAL DATA DEPARTMENT Provider, Generic External Data 09/29/2024 Orders Only GENERIC EXTERNAL DATA DEPARTMENT Provider, Generic External Data 09/28/2024 Orders Only [facility] External Provider, [facility] 09/24/2024 Refill [facility] [address] [place], [place] [phone] Rhonda Valdez RN Upper back pain; Chronic pain of both knees; Chronic female pelvic pain; Chronic pain syndrome 09/24/2024 Telephone [facility] [address] [place] [address] Kathryn Jarquin MD Nurse Triage 09/24/2024 Telephone [facility] [address] [place], [place] [phone] Kathryn Jarquin MD Med Refill 09/19/2024 Refill [facility] [address] [place] [address] Kathryn Jarquin MD Hypomagnesemia 09/18/2024 Telephone [facility] [address] [place] [address] Kathryn Jarquin MD November recall from Last 3 Months Immunizations Immunization Administration [...] 20 12/19/2024 2:28 PM EDT Oxygen Saturation 97% 10/29/2024 9:02 AM EDT Inhaled Oxygen Concentration - - Weight 70.6 kg (155 lb 9.6 oz) 12/19/2024 2:28 P M EDT Height 144.8 cm (4' 9 ) 12/19/2024 2:28 PM EDT Body Mass Index 33.67 12/19/2024 2:28 PM EDT Plan of Treatment Upcoming Encounters Date Type Department Care Team (Late st Contact Info) Description 01/21/2025 3:00 PM EDT Medication Management [facility] [address] [place] [phone] Denis Rodgers, PharmD [address] [place] [address] 01/24/2025 10:15 AM EDT Office Visit [facility] [address] [place] [address] Kathryn Jarquin MD [address] [place] [address] 02/05/2025 3:00 PM EST Clinical Support [facility] [address] [place] [address] Rhonda Valdez, DELFINA [address] [place] [address] 02/22/2025 1:45 PM EST Office Visit [facility] [address] [place] [address] Francesca Martinez, OD [address] [place] [address] Health Maintenance Due Date Last Done Comments CT Colonography 1956 FIT DNA/Cologuard 1956 FIT 1956 FOBT 1956 Sigmoidoscopy 1956 RSV Patients and Patients Aged 60 years or older (1 - Risk 60-74 years 1-dose series) 2016 Zoster Vaccines (2 of 2) 03/04/2023 01/07/2023 Depression Monitoring 09/27/2024 03/29/2024, 024 Eye Exam 11/17/2024 11/18/2023 Influenza Vaccine (#1) 2024 , 03/19/2024, 01/07/2023, Additional history exists COVID-19 Vaccine ( season) 2025 08/07/2024, 05/02/2023, 11/25/2021, Additional history exists Hepatitis A Vaccines (2 of 2 - Risk 2-dose series) 02/07/2025 08/07/2024, 03/29/2024 Diabetes: Hemoglobin A1C 03/20/2025 025, 11/03/2024, 08/07/2024, Additional history exists Alcohol/Substance Use Screening 03/29/2025 03/29/2024 Diabetes: Foot Exam 03/29/2025 03/29/2024 Lipid Panel 03/29/2025 12/19/2024, 03/05, 01/13/2023, Additional history exists SDOH Screening 08/07/2025 08/07/2024 Tobacco Screening 12/19/2025 12/19/2024 Mammogram 11/07/2026 11/07/2024, 09/02, 01/22/2020, Additional history [...] 2:28 PM EDT) No Denis Rodgers, Swapnil Procedures Procedure Name Priority Date/Time Associated Diagnosis Comments POCT GLYCATED HEMOGLOBIN, TOTAL Routine 12/19/2024 2:48 PM EDT Type 2 diabetes mellitus with stage 3b chronic kidney disease, without long-term current use of insulin (CMS/HCC) POCT GLUCOSE Routine 12/19/2024 2:29 PM EDT Type 2 diabetes mellitus with stage 3b chronic kidney disease, without long-term current use of insulin (CMS/HCC) BASIC METABOLIC PANEL Routine 12/19/2024 1:34 PM EDT MAGNESIUM Routine 12/19/2024 1:34 PM EDT Hypokalemia LIPID PANEL WITH REFLEX TO DIRECT LDL Routine 12/19/2024 1:34 PM EDT Dyslipidemia COMPREHENSIVE METABOLIC PANEL Routine 12/17/2024 8:16 AM EDT Hypertension, unspecified type Stage 3b chronic kidney disease (CMS/HCC) POCT FLORENCIA-14 URINE DRUG SCREEN Routine 12/04/2024 2:31 PM EDT Chronic pain of both knees BI MAMMOGRAM SCREENING TOMOSYNTHESIS BILATERAL Routine 11/07/2024 11:36 AM EDT POCT GLYCOSYLATED HEMOGLOBIN (HGB A1C) Routine 11/03/2024 11:35 AM EDT Type 2 diabetes mellitus with stage 3b chronic kidney disease, without long-term current use of insulin (CMS/HCC) POCT GLUCOSE Routine 10/29/2024 9:03 AM EDT Type 2 diabetes mellitus with stage 3b chronic kidney disease, without long-term current use of insulin (CMS/HCC) FUNDUS PHOTOS - OU - BOTH EYES Routine 10/23/2024 10:00 AM EDT Type 2 diabetes mellitus with retinopathy of both eyes, with long-term current use of insulin, macular edema presence unspecified, unspecified retinopathy severity (CMS/HCC) GLUCOSE, WHOLE BLOOD Routine 10/03/2024 7:56 AM [...] WO CONTRAST Routine 09/28/2024 12:54 PM EDT DIABETES EYE EXAM Routine 11/18/2023 HM COLONOSCOPY Routine 04/15/2023 ZZZ HISTORICAL HEPATITIS C ANTIBODY RFLX Routine 04/18/2019 8:30 AM EST from Last 3 Months or Most Recently Relevant to Health Maintenance Results * (ABNORMAL) POCT Hgb A1c (12/19/2024 2:48 PM EDT) Hemoglobin A1C 7.4(A) 4.0 - 5.7 % QC Media Lot # [id number] Lot# Expiration Date 42 Blood 12/19/2024 2:48 PM EDT Dara Hayes MD POINT OF CARE TEST ENTER/EDIT ORDERABLES Final Result * POCT Glucose (12/19/2024 2:29 PM EDT) Only the most recent of2 resultswithin the time period is included. Glucose Blood, POC 196 60 - 200 mg/dL QC Media Lot # [id number] Lot# Expiration Date 726 Blood Capillary blood specimen / Unknown 12/19/2024 2:29 PM EDT Dara Hayes MD POINT OF CARE TEST ENTER/EDIT ORDERABLES Final Result * Magnesium (12/19/2024 1:34 PM EDT) Magnesium 1.7 1.6 - 2.6 mg/dL [facility] Blood Venous blood specimen / Unknown 12/19/2024 1:34 PM EDT 12/19/2024 4:03 PM EDT Kathryn Jarquin MD LAB BLOOD ORDERABLES Final Resul t [facility] [address] [place] [address] [phone] * (ABNORMAL) Basic Metabolic Panel (12/19/2024 1:34 PM EDT) Sodium 140 135 - 145 mmol/L [facility] Potassium 3.7 3.3 - 5.1 mmol/L [facility] Chloride 103 96 - 108 mmol/L [facility] Carbon Dioxide 26 22 - 29 mmol/L [facility] Anion Gap 15 12 - 20 [facility] Urea Nitrogen (BUN) 31(H) 9 - 16 mg/dL [facility] Creatinine, Serum 1.47(H) 0.5 - 1.4 mg/dL [facility] Estimated Glomerular Filt Rate 35 [facility] Comment:Chronic Kidney Disea se: Estimated GFR < 60 mL/min/[id number] Kidney Disease: Estimated GFR < 15 mL/min/1.73m2 Glucose 190(H) 60 - 115 mg/dL [facility] Calcium 9.7 8.4 - 10.2 mg/dL [facility] 12/19/2024 1:34 PM EDT 12/19/2024 4:03 PM EDT us Generic External Data Provider LAB BLOOD ORDERAB LES Final Result Performing Organization Address City/State/[facility] Co de Phone Number [facility] [address] [place] [phone] * (ABNORMAL) Comprehensive Metabolic Panel (12/17/2024 8:16 AM EDT) Sodium 141 135 - 145 mmol/L [facility] Potassium 3.2(L) 3.3 - 5.1 mmol/L [facility] Chloride 103 96 - 108 mmol/L [facility] Carbon Dioxide 24 22 - 29 mmol/L [facility] Anion Gap 17 12 - 20 [facility] Urea Nitrogen (BUN) 24(H) 9 - 16 mg/dL [facility] Creatinine, Serum 1.41(H) 0.5 - 1.4 mg/dL [facility] Estimated Glomerular Filt Rate 37 [facility] Comment:Chronic Kidney Disea se: Estimated GFR < 60 mL/min/1.57u2Hxycbd Kidney Disease: Estimated GFR < 15 mL/min/1.73m2 Glucose 179(H) 60 - 115 mg/dL [facility] Calcium 9.5 8.4 - 10.2 mg/dL [facility] Bilirubin, Total 0.4 0.0 - 1.0 mg/dL [facility] Aspartate Amino Transferase 17 5 - 31 U/L [facility] Alanine Aminotransferase 8 0 - 31 U/L [facility] Total Protein 7.4 6.5 - 8.0 g/dL [facility] Albumin Level 4.4 3.5 - 5.0 g/dL [facility] Alkaline Phosphatase 125(H) 39 - 117 U/L [facility] Blood Venous blood specimen / Unknown 12/17/2024 8:16 AM EDT 12/17/2024 11:04 AM EDT us Kathryn Jarquin MD LAB BLOOD ORDERABLES Final Resul t [facility] [address] [place] [address] [phone] * (ABNORMAL) POCT FLORENCIA-14 Urine Drug Screen [...] 2:31 PM EDT Internal Pass Control Lot# [id number] Exp: 02-01-26 Kathryn Jarquin MD POINT OF CARE TEST ENTER/EDIT OR DERABLES Final Result * BI Mammogram Screening Tomosynthesis Bilateral (11/07/2024 11:36 AM EDT) Anatomical Region Laterality Modality Breast Bilateral Mammography 11/07/2024 11:3 6 AM EDT Narrative 11/17/2024 6:20 PM EDT [facility] [address] [place] [address] Mammography Report Signed Patient: Wen Moran MR#: [id number] : 1955 Acct:[id number] Age/Sex: 69 / F ADM Date: 11/07/24 Loc: .MAMMO Attending Dr: Kathryn Jarquin MD Ordering Physician: Jaylen Cotton MD Results: 1Negativ e Date of Service: 11/07/24 Follow Up: 1 Year From [facility] Mammogram Procedure(s): MM tomosynthesis screening BI Accession Number(s): [id number] cc: Kathryn Jarquin MD; Jaylen Cotton MD [...] 11/17/24 1817 DD/ 1136 TD/TT: 11/07/24 1150 Explosive Ordnance Specialist: Procedure Note Donotuseinterpreter, Image - 11/17/2024 Lianna [facility] [address] [place], [place] [address] Mammography Report Signed Patient: Devin Moran#: [id number] : 1955cct:[id number] Age/Sex: 69 / FADM Date: 11/07/24 Loc: MEGANO Attending Dr: Kathryn Jarquin MD Ordering Physician: Jaylen Cotton MDResults: 1Negativ e Date of Service: 11/07/24Follow Up: 1 Year From Orig inal Mammogram Procedure(s): MM tomosynthesis screening BI Accession Number(s): [id number] cc: Kathryn Jarquin MD; Jaylen Cotton MD [...] Neal Fields MD 11/17/2024 06:17 PM EDT Dictated By: Neal Fields MD Signed By: <Electronically signed by Neal Fields MD in OV> 11/17/24 1817 DD/ 1136 TD/TT: 11/07/24 1150 Explosive Ordnance Specialist: [facility] External Provider IMG BI PROCEDURES Edited Result [...] Whole Blood 165(H) 60 - 115 mg/dL [facility] Comment:METER #: [id number] 10/03/2024 7:56 AM EDT 10/03/2024 8:01 AM EDT Generic External Data Provider LAB BLOOD ORDERAB LES Final Result Performing Organization Address City/State/[facility] Co de Phone Number [facility] [address] [place] [address] [phone] * CT Pelvis w/o Contrast (09/28/2024 12:54 PM EDT) Anatomical Region Laterality Modality Body, Pelvis Computed Tomogra phy 09/28/2024 12:5 4 PM EDT Narrative 09/28/2024 2:22 PM EDT [place] [address] [address] Scan Report Signed Patient: Wen Moran MR#: [id number] : 1955 Acct:[id number] Age/Sex: 69 / F ADM Date: 09/28/24 Loc: HO.ED Attending Dr: Ordering Physician: Lauren Persaud NP Date of Service: 09/28/24 Procedure(s): CT pelvis wo IV con Accession Number(s): [id number] cc: Kathryn Jarquin MD; Lauren Persaud NP Report Number: [id number]: Total DLP = 488.00 mGy-cm EXAMINATION: CT [...] 09/28/24 1419 DD/ 1254 TD/TT: 09/28/24 1405 Explosive Ordnance Specialist: Procedure Note Donotuseinterpreter, Image - 09/28/[address] [address] [address] Scan Report Signed Patient: Devin Moran#: [id number] : 1955cct:[id number] Age/Sex: 69 / FADM Date: 09/28/24 Loc: HO.ED Attending Dr: Ordering Physician: Lauren Persaud NP Date of Service: 09/28/24 Procedure(s): CT pelvis wo IV con Accession Number(s): [id number] cc: Kathryn Jarquin MD; Lauren Persaud NP Report Number: [id number]: Total DLP = 488.00 mGy-cm EXAMINATION: CT [...] 09/28/24 1419 DD/ 1254 TD/TT: 09/28/24 1405 Explosive Ordnance Specialist: [facility] External Provider IMG CT PROCEDURES Final Result * Diabetes Eye Exam (11/18/2023) Pathologist [facility] Eye Exam Normal Normal 11/18/2023 Historical Provider HEALTH MAINTENANCE Final Result * Hm Colonoscopy (04/15/2023) Colonoscopy Normal Normal Narrative Chayo Tobin - 04/15/2023 Recommended 5 year follow up see external hospital admission note on 04/15/2023 Historical Provider HEALTH MAINTENANCE Final Result * HEPATITIS C ANTIBODY RFLX (04/18/2019 8:30 AM EST) HEPATITIS C ANTIBODY NONREACTIVE NONREACTIVE [facility] Comment: Antibodies to HCV not detected; does not exclude early acute HCV infection. 04/18/2019 8:30 AM EST Kathryn Jarquin MD HISTORICAL/NON ORDERABLE LABS Fi nal Result [facility] [place] [address], from Last 3 Months or Most Recently Relevant to Health Maintenance Insurance FOR[facility]LY [facility] (O D-SNP) [place] [id number] [employer] Care Teams It Integration Architect Relationship Specialty Start Date End Date Kathryn Jarquin MD [address] [place] [address] PCP - General Family Medicine 04/04/18 Denis Rodgers, NamitaD [address] [place] [address] Pharmacist Internal Medicine 10/22/22
--- OUTSIDE RECORDS SUMMARY | 2024-12-19 16:51 | XMS_ITS | Encounter Summary ---
Author Organization [employer] Address [address] [facility] [address] [place] [address] Care Team Providers Care Full Stack Net Developer Name Role Phone Kathryn Jarquin MD Primary Care Provider [phone] Denis Rodgers PharmD Unavailable [phone] Encounter Details Date Type Department Care Team (Late st Contact Info) Description 12/19/2024 Orders Only GENERIC EXTERNAL DATA DEPARTMENT Provider, Generic External Data Social History Tobacco Use Types Packs/Day Years [...] Description 01/21/2025 3:00 PM EDT Medication Management [facility] [address] [place] [address] Denis Rodgers, PharmMirela [address] [place] [address] 01/24/2025 10:15 AM EDT Office Visit [facility] [address] [place] [address] Kathryn Jarquin MD [address] [place] [address] 02/05/2025 3:00 PM EST Clinical Support [facility] [address] [place] [address] Rhonda Valdez, RN [address] [place] [address] 02/22/2025 1:45 PM EST Office Visit [facility] [address] [place] [address] TarkaFrancesca, OD [address] [place] [address] documented as of this encounter Goals Goal Patient Goal Type Associated Problems Recent Progress Patient-Stated? Author Blood Pressure < 140/90 Blood Pressure 122/64( 025 2:28 PM EDT) No Denis Rodgers, Swapnil documented as of this encounter Procedures Procedure Name Priority Date/Time Associated Diagnosis Comments BASIC METABOLIC PANEL Routine 12/19/2024 1:34 PM EDT documented in this encounter Results * (ABNORMAL) Basic Metabolic Panel (12/19/2024 1:34 PM EDT) Sodium 140 135 - 145 mmol/L [facility] Potassium 3.7 3.3 - 5.1 mmol/L [facility] Chloride 103 96 - 108 mmol/L [facility] Carbon Dioxide 26 22 - 29 mmol/L [facility] Anion Gap 15 12 - 20 [facility] Urea Nitrogen (BUN) 31(H) 9 - 16 mg/dL [facility] Creatinine, Serum 1.47(H) 0.5 - 1.4 mg/dL [facility] Estimated Glomerular Filt Rate 35 [facility] Comment:Chronic Kidney Disea se: Estimated GFR < 60 mL/min/1.35l1Tnzxkb Kidney Disease: Estimated GFR < 15 mL/min/1.73m2 Glucose 190(H) 60 - 115 mg/dL [facility] Calcium 9.7 8.4 - 10.2 mg/dL [facility] 12/19/2024 1:34 PM EDT 12/19/2024 4:03 PM EDT us Generic External Data Provider LAB BLOOD ORDERAB LES Final Result [facility] [address] [place] [address] [phone] documented in this encounter Visit Diagnoses Not on filedocumented in this encounter Additional Health Concerns Assessment Noted Time PHQ-9 Depression Total Score: 12 03/29/2 024 10:26 AM EST documented as of this encounter Care Teams Full Stack Net Developer Relationship Specialty Start Date End Date Kathryn Jarquin MD [address] [place] [address] PCP - General Family Medicine 04/04/18 Denis Rodgers, NamitaD [address] [place] [address] Pharmacist Internal Medicine 10/22/22 documented as of this encounter
--- OUTSIDE RECORDS SUMMARY | 2024-12-19 16:52 | XMS_ITS | Encounter Summary ---
Author Organization [employer] Address [address] [facility] 7t [place] [address] Care Team Providers Care Community Aide Name Role Phone Kathryn Jarquin MD Primary Care Provider Denis Rodgers PharmD Unavailable [phone] Reason for Visit * Reason Comments Med Refill Encounter Details Date Type Department Care Team ([facility] st Contact Info) Description 05/29/2024 Refill [facility] [address] [place] [address] Kathryn Jarquin MD [address] [place] [address] Upper back pain; Chronic pain of both [...] Upcoming Encounters Date Type Department Care Team ([facility] Contact Info) Description 01/21/2025 3:00 PM EDT Medication Management [facility] [address] [place] [address] Denis Rodgers, PharmD [address] [place] [address] 01/24/2025 10:15 AM EDT Office Visit [facility] [address] [place] [address] Kathryn Jarquin MD [address] [place] [address] 02/05/2025 3:00 PM EST Clinical Support [facility] [address] [place] [address] Rhonda Valdez, RN [address] [place] [address] 02/22/2025 1:45 PM EST Office Visit [facility] [address] [place] [address] Francesca Martinez, OD [address] [place] [address] documented as of this encounter Goals Goal [...] documented as of this encounter Care Teams Community Aide Relationship Specialty Start Date End Date Kathryn Jarquin MD [address] [place] [address] PCP - General Family Medicine 04/04/18 Denis Rodgers, PharmD [address] [place] [address] Pharmacist Internal Medicine 10/22/22 documented as of this encounter
--- OUTSIDE RECORDS SUMMARY | 2024-12-19 16:52 | XMS_ITS | Encounter Summary ---
Author Organization [employer] Address [address] [facility] 7t [place] [address] Care Team Providers Care Physical Security Specialist Name Role Phone Kathryn Jarquin MD Primary Care Provider [phone] Denis Rodgers PharmD Unavailable [phone] Reason for Visit * Reason Onset Date Comments Nurse Triage 09/24/2024 Encounter Details Date Type Department Care Team ([facility] st Contact Info) Description 09/24/2024 Telephone [facility] [address] [place] [address] Kathryn Jarquin MD [address] [place], [place] [phone] Nurse Triage Social History Tobacco Use Types [...] RN - 09/24/2024 2:53 PM EDT No tombstone erector helper needed as this expert medical writer speaks Greek. Call returned to Wen Moran to triage below at [phone]. Reports having chronic pain that is using Oxycodone for. Pt was looking for status of Rx. Advised was queued to JUNIOR MARKETING ASSOCIATE nurse for MASSPAT review and then to [...] Reason: Abdominal pain Please contact pt at [phone]. (Greek Speaker) documented in this encounter Plan of Treatment Upcoming Encounters Date Type Department Care Team ([facility] st Contact Info) Description 01/21/2025 3:00 PM EDT Medication Management [facility] [address] [place] [address] Denis Rodgers, PharmD [address] [place] [address] 01/24/2025 10:15 AM EDT Office Visit [facility] [address] [place] [address] Kathryn Jarquin MD [address] [place] [address] 02/05/2025 3:00 PM EST Clinical Support [facility] [address] [place] [address] Rhonda Valdez, RN [address] [place] [address] 02/22/2025 1:45 PM EST Office Visit [facility] [address] [place] [address] Francesca Martinez, OD [address] [place] [address] documented as of this encounter Goals Goal [...] documented as of this encounter Care Teams Physical Security Specialist Relationship Specialty Start Date End Date Kathryn Jarquin MD [address] [place] [address] PCP - General Family Medicine 04/04/18 Denis Rodgers, PharmD [address] [place] [address] Pharmacist Internal Medicine 10/22/22 documented as of this encounter
--- OUTSIDE RECORDS SUMMARY | 2024-12-19 16:52 | XMS_ITS | Encounter Summary ---
Author Organization [employer] Address [address] [facility] 7t [place] [address] Care Team Providers Care Rounding And Backing Machine Operator Name Role Phone Kathryn Jarquin MD Primary Care Provider [phone] Denis Rodgers PharmD Unavailable [phone] Reason for Visit * Reason Onset Date Comments Results 12/17/2024 Encounter Details Date Type Department Care Team (Latest Contact Info) Description 12/17/2024 Results Follow-Up [facility] [address] [place] [address] Kathryn Jarquin MD [address] [place] [address] Comprehensive Metabolic Panel Social History Tobacco Use Types Packs/Day Years [...] encounter Miscellaneous Notes * Telephone Encounter - Magdalena Prakash RN - 12/17/2024 1:24 PM EDT T/C placed to pt utilizing S #[id number] regarding below results and POC. Informed of mildly low potassium. Pt reports Hx of HYPERkalemia for which she had to go to the hospital. She is surprised that it low. Pt states doesn't know which pill chlorthalidone is in her medbox but is happy to get repeat labs 12/19/24. Advised foods that are high in potassium (avocados, spinach, broccoli, tomatoes. Did not recommend bananas as they are very high in sugar and pt is diabetic). Pt states will eat high potassium foods and recheck lab . Pt verbalized understanding and denied having any further questions or concerns at this time. * Telephone Encounter - Magdalena Prakash RN - 12/17/2024 1:10 PM EDT ----- Message from Kathryn Jarquin MD sent at 12/17/2024 12:21 PM EDT ----- Slightly low potassium. Please ask her to halve chlorthalidone and check and record her home BP. Ifshe cannot figure out which med is chlorthalidone (medbox), please ask her to get a repeat lab when she comes back (patient has appointment) on 12/19/24. Please suggest some healthy foods that are high in K. Thank you. ----- Message ----- From: Interface, Lab Results In Sent: 12/17/2024 12:07 PM EDT To: Kathryn Jarquin MD documented in this encounter Plan of Treatment Upcoming Encounters Date Type Department Care Team ([facility] st Contact Info) Description 01/21/2025 3:00 PM EDT Medication Management [facility] [address] [place] [address] Denis Rodgers, PharmMirela [address] [place] [address] 01/24/2025 10:15 AM EDT Office Visit [facility] [address] [place] [address] Kathryn Jarquin MD [address] [place] [address] 02/05/2025 3:00 PM EST Clinical Support [facility] [address] [place] [address] Rhonda Valdez, DELFINA [address] [place] [address] 02/22/2025 1:45 PM EST Office Visit [facility] [address] [place] [address] Francesca Martinez, OD [address] [place] [address] documented as of this encounter Goals Goal Patient Goal Type Associated Problems Recent Progress Patient-Stated? Author Blood Pressure < 140/90 Blood Pressure 122/64( 025 2:28 PM EDT) No Denis Rodgers, PharmMirela documented as of this encounter Visit Diagnoses Not on filedocumented in this encounter Additional Health Concerns Assessment Noted Time PHQ-9 Depression Total Score: 12 024 10:26 AM EST documented as of this encounter Care Teams Rounding And Backing Machine Operator Relationship Specialty Start Date End Date Kathryn Jarquin MD [address] [place], [place] [phone] PCP - General Family Medicine 04/04/18 Denis Rodgers, NamitaD [address] [place] [address] Pharmacist Internal Medicine 10/22/22 documented as of this encounter
--- OUTSIDE RECORDS SUMMARY | 2024-12-19 16:52 | XMS_ITS | Encounter Summary ---
Author Organization [facility], Address [address] [place] [address] Phone Care Team Providers Care Prison Teacher Name Role Phone Kathryn Jarquin MD Primary Care Provider [phone] Encounter Details Date Type Department Care Team (Late st Contact Info) Description 09/07/2023 Documentation Only [facility], [address] [place] [address] Doug Luna [address] [place] [address] Social History Tobacco Use Types [...] on filedocumented in this encounter Care Teams Prison Teacher Relationship Specialty Start Date End Date Kathryn Jarquin MD [address] [place] [address] PCP - General Family Medicine 08/31/23 documented as of this encounter
--- OUTSIDE RECORDS SUMMARY | 2024-12-19 16:52 | XMS_ITS | Encounter Summary ---
Author Organization [employer] Address [address] [facility] 7t [place] [address] Care Team Providers Care Drafter Automotive Design Layout Name Role Phone Kathryn Jarquin MD Primary Care Provider [phone] Denis Rodgers PharmD Unavailable [phone] Reason for Visit * Reason Onset Date Comments Med Refill 09/24/2024 Encounter Details Date Type Department Care Team (Late st Contact Info) Description 09/24/2024 Telephone [facility] [address] [place] [address] Kathryn Jarquin MD [address] [place], [place] [phone] Med Refill Social History Tobacco Use Types [...] immediate release tablet To be sent to: [facility] - [place], [place] - [address] [place] [address] documented in this encounter Plan of Treatment Upcoming Encounters Date Type Department Care Team ([facility] st Contact Info) Description 01/21/2025 3:00 PM EDT Medication Management [facility] [address] [place] [address] Denis Rodgers, PharmD [address] [place] [address] 01/24/2025 10:15 AM EDT Office Visit [facility] [address] [place] [address] Kathryn Jarquin MD [address] [place] [address] 02/05/2025 3:00 PM EST Clinical Support [facility] [address] [place] [address] Rhonda Valdez, DELFINA [address] [place] [address] 02/22/2025 1:45 PM EST Office Visit [facility] [address] [place] [address] Francesca Martinez, OD [address] [place] [address] documented as of this encounter Goals Goal [...] documented as of this encounter Care Teams Drafter Automotive Design Layout Relationship Specialty Start Date End Date Kathryn Jarquin MD [address] [place] [address] PCP - General Family Medicine 04/04/18 Denis Rodgers, PharmD [address] [place] [address] Pharmacist Internal Medicine 10/22/22 documented as of this encounter
--- OUTSIDE RECORDS SUMMARY | 2024-12-19 16:52 | XMS_ITS | Encounter Summary ---
Author Organization [email or web address] Address [address] [facility] [address] 7t [place] [address] Care Team Providers Care Cardiology Manager Name Role Phone Kathryn Jarquin MD Primary Care Provider [phone] Denis Rodgers PharmD Unavailable [phone] Encounter Details Date Type Department Care Team (Late st Contact Info) Description 01/14/2023 Orders Only [facility] [address] [place] [address] Kathryn Jarquin MD [address] [place] [address] Stage 3b chronic kidney disease (CMS/HCC) (Primary [...] Description 01/21/2025 3:00 PM EDT Medication Management [facility] [address] [place] [address] Denis Rodgers, Swapnil [address] [place] [address] 01/24/2025 10:15 AM EDT Office Visit [facility] [address] [place] [address] Kathryn Jarquin MD 230 [place] [address] 02/05/2025 3:00 PM EST Clinical Support [facility] [address] [place], [place] [phone] Rhonda Valdez, RN 505 [place] [address] 02/22/2025 1:45 PM EST Office Visit [facility] [address] [place] [address] Francesca Martinez, OD [address] [place] [address] documented as of this encounter Goals Goal Patient Goal Type Associated Problems Recent Progress Patient-Stated? Author Blood Pressure < 140/90 Blood Pressure 122/64( 025 2:28 PM EDT) No Denis Rodgers, PharmD documented as of this encounter Visit Diagnoses Diagnosis Stage 3b chronic kidney disease (CMS/HCC)- Primary Essential hypertension Unspecified essential hypertension Type 2 diabetes mellitus with hyperglycemia, without long-term current use of insulin ([facility]) documented in this encounter Care Teams Cardiology Manager Relationship Specialty Start Date End Date Kathryn Jarquin MD 230 [place], [place] [phone] PCP - General Family Medicine 04/04/18 Denis Rodgers, Swapnil [address] [place] [address] Pharmacist Internal Medicine 10/22/22 documented as of this encounter
--- OUTSIDE RECORDS SUMMARY | 2024-12-19 16:52 | XMS_ITS | Encounter Summary ---
Author Organization [employer] Address 75 [facility] 7t [place] [address] Care Team Providers Care Rooter Operator Name Role Phone Kathryn Jarquin MD Primary Care Provider [phone] Denis Rodgers PharmD Unavailable [phone] Reason for Visit * Reason Comments Med Refill Encounter Details Date Type Department Care Team ([facility] st Contact Info) Description 09/19/2024 Refill [facility] MEDICINE [address] [place], [place] [phone] Kathryn Jarquin MD [address] [place], [place] [phone] Hypomagnesemia Social History Tobacco Use Types Packs/Day [...] Upcoming Encounters Date Type Department Care Team ([facility] st Contact Info) Description 01/21/2025 3:00 PM EDT Medication Management [facility] MEDICINE [address] [place] [phone] Denis Rodgers, PharmD [address] [place] [address] 01/24/2025 10:15 AM EDT Office Visit [facility] MEDICINE [address] [place] [address] Kathryn Jarquin MD [address] [place] [address] 02/05/2025 3:00 PM EST Clinical Support [facility] CHC MED & PEDS [address] [place] [address] Rhonda Valdez, DELFINA 505 [place] [address] 02/22/2025 1:45 PM EST Office Visit [facility] OPTOMETRY [address] [place] [address] Francesca Martinez, OD [address] [place] [address] documented as of this encounter Goals Goal [...] documented as of this encounter Care Teams Rooter Operator Relationship Specialty Start Date End Date Kathryn Jarquin MD 230 [place] [address] PCP - General Family Medicine 04/04/18 Denis Rodgers, PharmD [address] [place] [address] Pharmacist Internal Medicine 10/22/22 documented as of this encounter
--- OUTSIDE RECORDS SUMMARY | 2024-12-19 16:52 | XMS_ITS | Encounter Summary ---
Author Organization [employer] Address [address] [facility] [address] 7t [place] [address] Care Team Providers Care Fire Apparatus Engineer Name Role Phone Kathryn Jarquin MD Primary Care Provider [phone] Denis Rodgers PharmD Unavailable [phone] Encounter Details Date Type Department Care Team (Late st Contact Info) Description 01/14/2023 Orders Only [facility] MEDICINE [address] [place] [address] Kathryn Jarquin MD [address] [place] [address] Stage 3b chronic kidney disease (CMS/HCC) (Primary [...] 3:00 PM EDT Medication Management [facility] MEDICINE [address] [place] [phone] Denis Rodgers, NamitaD [address] [place] [address] 01/24/2025 10:15 AM EDT Office Visit [facility] MEDICINE [address] [place] [phone] Kathryn Jarquin MD [address] [place] [address] 02/05/2025 3:00 PM EST Clinical Support [facility] CHC MED & PEDS [address] [place] [address] Rhonda Valdez, RN [address] [place] [address] 02/22/2025 1:45 PM EST Office Visit [facility] OPTOMETRY [address] [place] [address] Francesca Martinez, OD [address] [place] [address] Scheduled Orders Name Type Priority Associated Diagnoses [...] Diagnoses Diagnosis Stage 3b chronic kidney disease ([facility])- Primary Essential hypertension Unspecified essential hypertension Type 2 diabetes mellitus with hyperglycemia, without long-term current use of insulin ([facility]) documented in this encounter Care Teams Fire Apparatus Engineer Relationship Specialty Start Date End Date Kathryn Jarquin MD [address] [place] [phone] PCP - General Family Medicine 04/04/18 Denis Rodgers, PharmD [address] [place] [phone] Pharmacist Internal Medicine 10/22/22 documented as of this encounter
--- OUTSIDE RECORDS SUMMARY | 2024-12-19 16:52 | XMS_ITS | Clinical Summary ---
Author Organization [facility] Address [facility] [address] [place] [address] Phone Care Team Providers Care Hog Scalder Name Role Phone Kathryn Jarquin MD Primary Care Provider [phone] Allergies No known active allergies Active Problems [...] Last Assessment & Plan: -follow up with glove turner and former automatic -avoid nephrotoxic drugs -adjust medication: metformin ER [...] to complete this topic Insurance [facility] [employer] Dual SNP ([id number]) [place] [address] Care Teams Hog Scalder Relationship Specialty Start Date End Date Kathryn Jarquin MD [address] [place] [phone] PCP - General Family Medicine 08/31/23
--- OUTSIDE RECORDS SUMMARY | 2024-12-19 16:52 | XMS_ITS | Encounter Summary ---
Author Organization [employer] Address 75 [facility] 7t [place] [address] Care Team Providers Care Carpenter Streetcar Name Role Phone Kathryn Jarquin MD Primary Care Provider [phone] Denis Rodgers PharmD Unavailable [phone] Reason for Visit * Reason Comments Med Refill Encounter Details Date Type Department Care Team ([facility] st Contact Info) Description 05/28/[address] [facility] MEDICINE [address] [place], [place] [phone] Kathryn Jarquin MD [address] [place] [address] Upper back pain; Chronic pain of both [...] Upcoming Encounters Date Type Department Care Team ([facility] Contact Info) Description 01/21/2025 3:00 PM EDT Medication Management [facility] MEDICINE [address] [place] [phone] Denis Rodgers, PharmD [address] [place] [address] 01/24/2025 10:15 AM EDT Office Visit [facility] MEDICINE [address] [place] [address] Kathryn Jarquin MD [address] [place] [address] 02/05/2025 3:00 PM EST Clinical Support [facility] CHC MED & PEDS [address] [place] [address] Rhonda Valdez, RN [address] [place] [address] 02/22/2025 1:45 PM EST Office Visit [facility] OPTOMETRY [address] [place] [address] Francesca Martinez, OD 267 [place] [address] documented as of this encounter Goals Goal [...] documented as of this encounter Care Teams Carpenter Streetcar Relationship Specialty Start Date End Date Kathryn Jarquin MD [address] [place] [address] PCP - General Family Medicine 04/04/18 Denis Rodgers, PharmD [address] [place] [address] Pharmacist Internal Medicine 10/22/22 documented as of this encounter
--- OUTSIDE RECORDS SUMMARY | 2024-12-19 16:52 | XMS_ITS | Encounter Summary ---
Author Organization [employer] Address [address] [facility] [address] 7t [place] [address] Care Team Providers Care Manager Bar Name Role Phone Kathryn Jarquin MD Primary Care Provider [phone] Denis Rodgers PharmD Unavailable [phone] Encounter Details Date Type Department Care Team ([facility] st Contact Info) Description 04/02/2024 Orders Only [facility] MEDICINE [address] [place] [address] Kathryn Jarquin MD [address] [place] [address] Social History Tobacco Use Types Packs/Day Years [...] Description 01/21/2025 3:00 PM EDT Medication Management [facility] MEDICINE [address] [place] [phone] Denis Rodgers, PharmD [address] [place] [address] 01/24/2025 10:15 AM EDT Office Visit [facility] MEDICINE [address] [place] [address] Kathryn Jarquin MD [address] [place] [address] 02/05/2025 3:00 PM EST Clinical Support [facility] CHC MED & PEDS [address] [place] [address] Rhonda Valdez, DELFINA 505 [place] [address] 02/22/2025 1:45 PM EST Office Visit [facility] OPTOMETRY [address] [place] [address] Francesca Martinez OD [address] [place] [address] documented as of this encounter Goals Goal [...] as of this encounter Care Teams Manager Bar Relationship Specialty Start Date End Date Kathryn Jarquin MD [address] [place] [address] PCP - General Family Medicine 04/04/18 Denis Rodgers, PharmD [address] [place] [address] Pharmacist Internal Medicine 10/22/22 documented as of this encounter
--- OUTSIDE RECORDS SUMMARY | 2024-12-19 16:52 | XMS_ITS | Encounter Summary ---
Author Organization [employer] Address 75 [facility] 7t [place] [address] Care Team Providers Care Director Of Recruitment And Admissions Name Role Phone Kathryn Jarquin MD Primary Care Provider [phone] Denis Rodgers PharmD Unavailable [phone] Encounter Details Date Type Department Care Team ([facility] st Contact Info) Description 09/30/2023 Orders Only [facility] MEDICINE [address] [place], [place] [phone] Kathryn Jarquin MD [address] [place], [place] [phone] Social History Tobacco Use Types Packs/Day Years [...] Medication Management [facility] MEDICINE [address] [place] [phone] Denis Rodgers, PharmD [address] [place] [address] 01/24/2025 10:15 AM EDT Office Visit [facility] MEDICINE [address] [place] [address] Kathryn Jarquin MD [address] [place] [address] 02/05/2025 3:00 PM EST Clinical Support [facility] MED [facility] PEDS 505 [place] [address] Rhonda Valdez, RN 505 [place] [address] 02/22/2025 1:45 PM EST Office Visit [facility] OPTOMETRY [address] [place] [address] TarkaFrancesca, OD [address] [place] [address] documented as of this encounter Goals Goal Patient Goal Type Associated Problems Recent Progress Patient-Stated? Author Blood Pressure < 140/90 Blood Pressure 122/64( 025 2:28 PM EDT) No Denis Rodgers, PharmD documented as of this encounter Visit Diagnoses Not on filedocumented in this encounter Care Teams Director Of Recruitment And Admissions Relationship Specialty Start Date End Date Kathryn Jarquin MD [address] [place] [address] PCP - General Family Medicine 04/04/18 Denis Rodgers, PharmD [address] [place] [address] Pharmacist Internal Medicine 10/22/22 documented as of this encounter
[2024-12-19 17:29] LABS: Reflex LDLD? No
== END 2024-12-19 13:13 | disposition home or self-care (01) ==
LOC: HO.HHCL 13:12
PROVIDERS: PCP Family Medicine; Visit Provider Internal Medicine Hypertension Specialist
DX: N18.4 Chronic kidney disease, stage 4 (severe) (principal); E87.6 Hypokalemia; E78.5 Hyperlipidemia, unspecified
CPT/HCPCS: 36415; 80048; 80061; 83735

== ENCOUNTER 2024-12-21 09:36 | Outpatient (REF) | payer OTHER, SELFPAY ==
--- OUTSIDE RECORDS SUMMARY | 2024-12-19 14:00 | XMS_ITS | Encounter Summary ---
Author Organization [employer] Address 75 [facility] 7t [place] [address] Care Team Providers Care Bakery Machine Mechanic Supervisor Name Role Phone Kathryn Jarquin MD Primary Care Provider [phone] Denis Rodgers PharmD Unavailable [phone] Reason for Visit * Reason Comments Pre-op Exam Encounter Details Date Type Department Care Team ([facility] st Contact Info) Description 12/19/2024 2:00 PM EDT Office Visit [facility] MEDICINE [address] [place] [address] Dara Hayes MD [address] [place] [address] Pre-operative exam (Primary Dx); Class 1 obesity with serious comorbidity and body mass index (BMI) of 33.0 to 33.9 in adult, unspecified obesity type; Type 2 diabetes mellitus with stage 3b chronic kidney disease, without long-term current use of insulin (CMS/HCC); Stage 3b chronic kidney disease (CMS/HCC) Social History Tobacco Use Types Packs/Day [...] 2:28 PM EDT documented in this encounter Progress Notes * Dara Hayes MD - 12/19/2024 2:00 PM EDT SUBJECTIVE: Wen Moran is a 69 y.o. year old female who presents for pre-operative exam. Denies recent illness, ER visit, or hospitalization. Acute Concerns: Pre-Op Date of surgery: 01/04/2025 Surgical procedure being done: right knee arthroscopy Type of anesthesia: General Labs needed: CMP, CBC w/ diff, A1C EKG: Yes Surgeon's name: Dr Watkins Last office note from surgeon requested: Yes, available in chart under Encounters dated 12/04/24 Surgeon fax # to send clearance: [phone] Denies personal or family history of bleeding diatheses or life-threatening anesthetic reactions. Denies known history of liver disease, asthma. Endorses history of CKD, current eGFR 35-37. Historyof DM2, currently well controlled on long acting insulin and Mounjaro. History of thyroid disease, well controlled on Synthroid. Denies history of stroke. Denies problems with pain, stiffness, or arthritis in neck or jaw. Denies history of sleep apnea. Denies allergy to tape, iodine, or latex. Able to walk up a flight of stairs or run across a street without needing to stop to catch breath. Walks with cane normally, did not brign today No history of alcohol withdrawal; not a regular, heavy drinker. Diabetes Mellitus - Reports blood sugar of 148 mg/dL this morning - Four months ago, A1c was 9.9; last month, A1c was 9.4; today 7.4 - States that during a recent hospital stay, received Prednisone that caused poor diabetes control - Currently taking Mounjaro and insulin for diabetes management Knee Pain - Reports onset of significant knee pain following a hospital stay - Experiences knee pain when walking, with pain starting upon reaching the balcony or patio - Taking oxycodone at night for pain management; recently ran out of medication General Symptoms - Denies recent illness, cough, cold, or trouble breathing Surgical Planning - Scheduled for surgery on January 04, 2025 Latest Reference Range & Units 12/19/24 13:34 Glucose 60 - 115 mg/dL 190 (H) Urea Nitrogen (BUN) 9 - 16 mg/dL 31 (H) Creatinine, Serum 0.5 - 1.4 mg/dL 1.47 (H) Sodium 135 - 145 mmol/L 140 Potassium 3.3 - 5.1 mmol/L 3.7 Chloride 96 - 108 mmol/L 103 Carbon Dioxide 22 - 29 mmol/L 26 Calcium 8.4 - 10.2 mg/dL 9.7 Anion Gap 12 - 20 15 Magnesium 1.6 - 2.6 mg/dL 1.7 Cholesterol <200 mg/dL 237 (H) HDL Cholesterol >40 mg/dL 54 LDL Cholesterol Calculated <100 mg/dL 147 (H) Triglycerides <150 mg/dL 181 (H) Estimated Glomerular Filt Rate 35 CBC pending Patient Active Problem List Diagnosis Date Noted Class 1 obesity with body mass index (BMI) of 33.0 to 33.9 in adult 12/19/2024 Chronic back pain 10/29/2024 Type 2 diabetes mellitus without complication, with long-term current use of insulin ([facility]) 10/03/2024 Long-term current use of opiate analgesic 06/21/2024 RTA (renal tubular acidosis) 11/10/2023 Urinary retention 05/08/2023 Menopause 04/26/2023 Osteopenia 04/26/2023 Tubular adenoma of colon 04/26/2023 Obstructive sleep apnea syndrome 04/11/2023 History of smoking 01/07/2023 Metabolic dysfunction-associated steatohepatitis (MASH) 01/07/2023 Knee pain 01/07/2023 Hypomagnesemia 01/07/2023 History of renal calculi 01/07/2023 Chronic idiopathic constipation 01/07/2023 Right hip pain 12/02/2022 Abdominal pain, lower 08/09/2022 Urge incontinence 08/09/2022 Subacute vaginitis 06/29/2022 Cyst of kidney, acquired 06/29/2022 Hypothyroidism 06/03/2022 Stage 3b chronic kidney disease ([facility]) 06/03/2022 Telogen effluvium 09/09/2017 Chronic pelvic pain in female 09/13/2016 Recurrent UTI 11/17/2015 Thyroid nodule 06/30/2015 Lung nodule 05/25/2015 GERD (gastroesophageal reflux disease) 01/23/2015 Generalized anxiety disorder with panic attacks 01/23/2015 Irritable bowel syndrome 01/23/2015 Recurrent major depression ([facility]) 01/23/2015 Asthma 01/23/2015 HTN (hypertension) 01/20/2015 Type 2 diabetes mellitus ([facility]) 01/20/2015 Dyslipidemia 06/02/2012 Depression 09/27/2011 Diverticulitis 06/01/2022 Surgical History[1] Social History Social History Narrative Not on file Review of Systems Constitutional: Negative. Respiratory: Negative. Cardiovascular: Negative. Gastrointestinal: Negative. Genitourinary: Negative. Musculoskeletal: Positive for arthralgias and gait problem. Skin: Negative. OBJECTIVE: Vitals: 12/19/24 1428 BP: 122/64 BP Location: Left arm Patient Position: Sitting BP Cuff Size: Large adult Pulse: 66 Resp: 20 Temp: 97.4 ??F (36.3 ??C) TempSrc: Oral Weight: 155 lb 9.6 oz (70.6 kg) Height: 4' 9 (1.448 m) Physical Exam Vitals and nursing note reviewed. Constitutional: Appearance: Normal appearance. HENT: Head: Normocephalic and atraumatic. Cardiovascular: Rate and Rhythm: Normal rate and regular rhythm. Pulses: Normal pulses. Heart sounds: Normal heart sounds. Pulmonary: Effort: Pulmonary effort is normal. Breath sounds: Normal breath sounds. Musculoskeletal: General: Tenderness present. Skin: General: Skin is warm and dry. Neurological: General: No focal deficit present. Mental Status: She is alert and oriented to person, place, and time. Psychiatric: Mood and Affect: Mood normal. Behavior: Behavior normal. ASSESSMENT/PLAN Problem List Items Addressed This Visit Type 2 diabetes mellitus (CMS/HCC) Relevant Orders POCT Glucose (Completed) POCT Hgb A1c (Completed) Stage 3b chronic kidney disease (CMS/HCC) Class 1 obesity with body mass index (BMI) of 33.0 to 33.9 in adult Other Visit Diagnoses Pre-operative exam - Primary Pt is average risk for low risk surgery and can proceed, pending surigcal concurencce, without further risk stratification. - Pre-operative evaluation for upcoming knee surgery scheduled for January 04, 2025. - Provided instructions regarding perioperative medication management. Advised to withhold insulin on the day of surgery. Advised to withhold Mounjaro during the week of surgery and resume post-operatively as directed. Advised to continue blood pressure medications on the day of surgery unless otherwise instructed by the surgeon. Printed and highlighted medication instructions for patient reference. Will send encounter notes to Dr. Jarquin and notify regarding upcoming surgery and pain medication management. - Ordered laboratory tests including hemoglobin A1c and blood count to monitor glycemic control andscreen for anemia. - Obesity noted as comorbidity relevant to surgical and medical management. Diabetes management: - Diabetes management discussed in context of perioperative care and recent glycemic control. - Advised to withhold insulin on the day of surgery. Advised to withhold Mounjaro during the week of surgery and resume post-operatively as directed. Ordered laboratory tests including hemoglobin A1cand glucose. Pain management for knee osteoarthritis: - Pain management for knee osteoarthritis discussed in context of upcoming surgery and current oxycodone prescription. - Advised to discontinue oxycodone prior to surgery and use only pain medication prescribed by the surgeon post-operatively. Instructed to resume oxycodone only after completion of post-surgical painmedication regimen. Relevant Orders CBC auto differential ECG 12 lead (Completed) Follow Up: per PCP recall or sooner prn Allergies[2] Current Medications[3] Lithuanian Translation: Provided by [facility] staff member BRISEIDA Starkey [1] History reviewed. No pertinent surgical history. [2] No Known Allergies [3] Current Outpatient Medications: acetaminophen (Tylenol Extra Strength) [...] tablet, Rfl: 3 Blood Glucose Monitoring Suppl (Needle HRStyle Hull Lite) w/Device kit, Use to test blood [...] NEEDED FOR PANIC ATTACK, Disp: , Rfl: Continuous Glucose Hospitality [employer] (FreeStyle Godfrey 3 Tryon) device, 1 each Once per day. Use as directedfor CGM, Disp: 1 each, Rfl: 0 Continuous Glucose Sensor (FreeStyle Godfrey 3 Plus Sensor) misc, 1 each every 15 days. Apply 1 every15 days as directed for CGM, Disp: 2 each, Rfl: 11 D3-1000 25 MCG (1000 UT) capsule, TAKE 1 CAPSULE BY MOUTH EVERY MORNING, Disp: 90 capsule, Rfl: 2 estradiol (Estrace) 0.1 MG/GM vaginal cream, INSERT 1 GRAM VAGINALLY WITH APPLICATORFUL AT BEDTIME TWICE EACH WEEK, Disp: , Rfl: FLUoxetine (PROzac) 20 MG capsule, , Disp: , Rfl: glucose 4 g chewable tablet, Chew 4 tablets (16 g) if needed for low blood sugar., Disp: 30 tablet,Rfl: 11 glucose blood (FREESTYLE LITE) test strip, Use to test blood sugar 2 times daily, Disp: 100 each, Rfl: 5 glucose blood (FreeStyle Precision Edi Test) test strip, Use to test blood sugar 2 times daily in case of CGM failure or extremes of BG, Disp: 50 each, Rfl: 11 hydrALAZINE (Apresoline) 25 MG tablet, TAKE 1 TABLET BY MOUTH TWICE DAILY IN THE MORNING AND IN THEEVENING WITH FOOD, Disp: 180 tablet, Rfl: 2 insulin degludec (Tresiba FlexTouch) 100 UNIT/ML injection, Administer 10 units subcutaneously oncedaily, Disp: 3 mL, Rfl: 12 Lancets [facility], Use to test blood sugar 2 times [...] oxyCODONE (Roxicodone) 5 MG immediate release tablet, TAKE 1 TABLET BY MOUTH EVERY DAY AT BEDTIME NEEDED FOR SEVERE PAIN, Disp: 28 tablet, Rfl: 0 pen needle 32G x 4 mm misc, Use daily with insulin, Disp: 100 each, Rfl: 11 prazosin (Minipress) 1 MG capsule, , Disp: , Rfl: QUEtiapine XR (SEROquel XR) 200 MG 24 hr tablet, Take 200 mg by mouth at bedtime., Disp: , Rfl: Tirzepatide (Mounjaro) 5 MG/0.5ML solution auto-injector, Inject 5 mg under the skin 1 (one) time per week., Disp: 2 mL, Rfl: 5 documented in this encounter Plan of Treatment Upcoming Encounters Date Type Department Care Team (Late st Contact Info) Description 01/21/2025 3:00 PM EDT Medication Management [facility] MEDICINE [address] [place] [address] Denis Rodgers, NamitaD [address] [place] [address] 01/24/2025 10:15 AM EDT Office Visit [facility] MEDICINE [address] [place] [address] Kathryn Jarquin MD [address] [place] [address] 02/05/2025 3:00 PM EST Clinical Support [facility] CHC MED & PEDS [address] [place] [address] Rhonda Valdez, RN [address] [place], [place] [phone] 02/22/2025 1:45 PM EST Office Visit [facility] OPTOMETRY [address] [place] [address] Francesca Martinez, OD [address] [place] [address] Scheduled Orders Name Type Priority Associated Diagnoses [...] Procedure Name Priority Date/Time Associated Diagnosis Comments ECG 12-LEAD Routine 12/21/2024 8:11 AM EDT Pre-operative exam POCT GLYCATED HEMOGLOBIN, TOTAL Routine 12/19/2024 2:48 PM EDT Type 2 diabetes mellitus with stage 3b chronic kidney disease, without long-term current use of insulin ([facility]) POCT GLUCOSE Routine 12/19/2024 2:29 PM EDT Type 2 diabetes mellitus with stage 3b chronic kidney disease, without long-term current use of insulin ([facility]) documented in this encounter Results * ECG 12 lead (12/21/2024 8:11 AM EDT) Narrative Dara Hayes MD - 12/21/2024 8:11 AM EDT NSR, heart rate 71, no ST-T segment elevation Dara Hayes MD ECG ORDERABLES Final Result * (ABNORMAL) POCT Hgb A1c (12/19/2024 2:48 [...] Diagnosis Pre-operative exam- Primary Unspecified pre-operative examination Class 1 obesity with serious comorbidity and body mass index (BMI) of 33.0 to 33.9 in adult, unspecified obesity type Type 2 diabetes mellitus with stage 3b chronic kidney disease, without long-term current use of insulin (CMS/HCC) Stage 3b chronic kidney disease (CMS/HCC) documented in this encounter Additional Health Concerns Assessment Noted Time PHQ-9 Depression Total Score: 12 03/29/ 024 10:26 AM EST documented as of this encounter Care Teams Bakery Machine Mechanic Supervisor Relationship Specialty Start Date End Date Kathryn Jarquin MD [address] [place] [address] PCP - General Family Medicine 04/04/18 Denis Rodgers, NamitaD [address] [place] [id number] Pharmacist Internal Medicine 10/22/22 documented as of this encounter
--- OUTSIDE RECORDS SUMMARY | 2024-12-21 10:09 | XMS_ITS | Clinical Summary ---
Author Organization [employer] Address [address] [facility] [address] [place] [address] Care Team Providers Care Volunteer Assistant Name Role Phone Kathryn Jarquin MD Primary Care Provider [phone] Denis Rodgers PharmD Unavailable [phone] Allergies No known active allergies Medications * [...] each Active Blood Glucose Monitoring Suppl (FreeStyle [place] Lite) w/Device kit Use to test blood [...] disease, without long-term current use of insulin ([facility]) Chew 4 tablets (16 g) [...] week. 2 mL 5 Active Continuous Glucose Batch Still Operator (FreeStyle God[place] 3 Ruth) deviceIndicatio ns:Type 2 diabetes mellitus with stage [...] disease, without long-term current use of insulin ([facility]/HCC) Use to test blood sugar 2 [...] disease, without long-term current use of insulin ([facility]) Inject 7.5 mg under the [...] Active Problems Problem Noted Date Diagnosed Date Class 1 obesity with body ma ss index (BMI) of 33.0 to 33.9 in adult 12/19/2024 Chronic back pain 10/29/2024 Assessment & Plan (10/29/2024 12:17 PM EDT): - lumbar spondylosis - following with [facility] pain management, plan for MBB. - Patient [...] (08/07/2024 9:08 AM EDT): - followed by [facility] GI - Work on achieving healthy weight and diet Assessment & Plan (04/05/2024 5:43 AM EST): - followed by [facility] GI - Work on achieving healthy weight and diet Assessment & Plan (05/08/2023 12:06 PM EST): - followed by [facility] GI - Work on achieving healthy weight and diet Knee pain 01/07/2023 Assessment & Plan (10/29/2024 12:10 PM EDT): - following with [facility] Ortho, last seen in July 2024 - [...] (08/12/2024 6:43 AM EDT): - following with [facility] Ortho - MRI on 08/26/24: subtle radial [...] 6:33 AM EDT): - taking oxycodone under HYDROGRAPHICAL TECHNICAL OFFICER agreement since Mar 2024 - evaluated by cake mixer and given reassurance for no gynecological abnormality - upcoming appointment with GI and pain management - continue current behavioral health service Assessment & Plan (04/05/2024 5:40 AM EST): - Takes non-prescribed oxycodone to try and relieve the pain and help her sleep - Will start at low dose oxycodone only one at bedtime; discussed about its judicious use and the importance of attending HYDROGRAPHICAL TECHNICAL OFFICER appt Assessment & Plan (10/30/2022 4:06 PM EDT): - seen by urogynecologist, cake mixer, general surgeon, and GI - Will check [...] (08/12/2022 4:18 PM EDT): - seen by cake mixer, general surgeon, and GI - Will check [...] last seen in 2020 - seen by [facility] U[facility] in September 2023 - check UA/ UCx - hold restarting oxybutynin due to current urinary retention - advised to reschedule appointment with urogyn Assessment & Plan (05/08/2023 12:09 PM EST): - Hx OAB, on oxybutynin, previously following with Dr. Peñaloza, last seen in 2020 - seen by [facility] Uro[facility]N in August 2022, upcoming follow-up appt - check UA/ UCx - hold restarting oxybutynin due to current urinary retention Assessment & Plan (10/30/2022 4:09 PM EDT): - Hx OAB, on oxybutynin, previously following with Dr. Peñaloza, last seen in 2020 - seen by [facility] Uro[facility]N in August 2022, upcoming follow-up [...] Plan (10/29/2024 12:14 PM EDT): -following with tinsmith helper, last seen in May 2024 -avoid nephrotoxic drugs -no longer on metformin or ACEI/ARB -consider SGLT2i (relative contraindication due to LUTS) Assessment & Plan (08/12/2024 6:38 AM EDT): -following with tinsmith helper, last seen in May 2024 -avoid nephrotoxic drugs -no longer on metformin or ACEI/ARB -consider SGLT2i Assessment & Plan (04/05/2024 5:47 AM EST): -following with tinsmith helper, last seen in Nov 2023 -avoid nephrotoxic drugs -no longer on metformin -consider SGLT2i Assessment & Plan (05/08/2023 12:00 PM EST): -following with tinsmith helper -avoid nephrotoxic drugs -no longer on metformin -clarify with GI whether patient needs to be on PPI Assessment & Plan (10/30/2022 4:11 PM EDT): -follow up with tinsmith helper -avoid nephrotoxic drugs -adjust medication: metformin ER to 500 mg bid - lab review: 08/10/22 K 4.6; BUN 28; Scr 1.0 ; eGFR 56; Bicarb 28 Assessment & Plan (08/09/2022 11:50 AM EDT): -follow up with tinsmith helper -avoid nephrotoxic drugs -adjust medication: metformin ER to 500 mg bid Assessment & Plan (06/03/2022 2:31 AM EST): -refer to tinsmith helper -avoid nephrotoxic drugs -adjust medication: metformin ER [...] September 2024. S/p hysterectomy. Benign finding. -Started HYDROGRAPHICAL TECHNICAL OFFICER with oxycodone 5 mg at night since Mar 2024 -Last HYDROGRAPHICAL TECHNICAL OFFICER visit on 08/01/24, pill count suggested misuse. [...] & Plan (08/12/2024 6:31 AM EDT): -Started HYDROGRAPHICAL TECHNICAL OFFICER with oxycodone 5 mg at night since Mar 2024 -Last HYDROGRAPHICAL TECHNICAL OFFICER visit on 08/01/24, pill count suggested misuse. [...] to start oxycodone under close monitoring with HYDROGRAPHICAL TECHNICAL OFFICER program; patient verbalized understanding -Discussed about increased [...] (08/07/2024 9:07 AM EDT): - followed by [facility] GI - check whether patient needs to be on PPI or can be changed to H2-hao as recommended by tinsmith helper Assessment & Plan (05/08/2023 12:02 PM EST): - followed by [facility] GI - check whether patient needs to be on PPI or can be changed to H2-hao as recommended by tinsmith helper Generalized anxiety disorder with panic attacks 01/23/2015 Assessment & Plan (04/05/2024 5:54 AM EST): -tremor, patient is able to stop tremor voluntarily -check TSH Assessment & Plan (06/03/2022 2:23 AM EST): -tremor -check TSH Irritable bowel syndrome 01/23/2015 Assessment & Plan (08/07/2024 9:07 AM EDT): GI: [facility], last visit in Apr 2023 Current medication: Linzess 290 mg daily Normal EGD and colonoscopy in [facility] in Jan 2013. Colonoscopy in Apr 2023 by [facility] GI, hyperplastic polyp. Repeat in 5 years. Assessment & Plan (04/05/2024 5:45 AM EST): GI: [facility], last visit in Apr 2023 Current medication: Linzess 290 mg daily Normal EGD and colonoscopy in [facility] in Jan 2013. Colonoscopy in Apr 2023 by [facility] GI, hyperplastic polyp. Repeat in 5 years. Assessment & Plan (10/30/2022 4:20 PM EDT): GI: [facility], last visit in 08/04/22 Current medication: Linzess 290 mg daily Normal EGD and colonoscopy in [facility] in Jan 2013. Anticipating another colonoscopy soon Assessment & Plan (08/12/2022 4:19 PM EDT): GI: [facility], last visit in 08/04/22 Current medication: Linzess 290 mg daily Normal EGD and colonoscopy in [facility] in Jan 2013. Anticipating another colonoscopy soon Assessment & Plan (06/03/2022 2:15 AM EST): GI: [facility], last visit in 08/11/21 Current medication: Linzess 290 mg daily Normal EGD and colonoscopy in [facility] in Jan 2013. Pt has to reschedule colonoscopy with GI Specialist Encouraged medication compliance Pt seems to have changed GI; will confirm Recurrent major depression 01/23/2015 Assessment & Plan (10/29/2024 12:15 PM EDT): -[facility] provider: [facility] -Continue current medications: clonazepam; fluoxetine; prazosin; clonidine; quetiapine Assessment & Plan (04/05/2024 5:54 AM EST): -[facility] provider: [facility] -Continue current medications: clonazepam; fluoxetine; prazosin; clonidine; quetiapine Assessment & Plan (05/08/2023 12:22 PM EST): -[facility] provider: [facility] -Continue current medications: clonazepam; fluoxetine; prazosin; clonidine; quetiapine Assessment & Plan (10/30/2022 4:18 PM EDT): -[facility] provider: [facility] -Continue current medications: clonazepam; fluoxetine; prazosin; clonidine; quetiapine Assessment & Plan (06/03/2022 2:22 AM EST): -[facility] provider: [facility] -Continue current medications: clonazepam; fluoxetine; prazosin; clonidine; [...] with Denis Rodgers RPh through CDTM and tinsmith helper -Work on lifestyle modifications, DASH diet and increase physical activity -continue amlodipine 5 mg daily -continue chlorthalidone 25 mg daily -continue Hydralazine 25 mg BID (tinsmith helper seems to be unaware of medication, will [...] with Denis Rodgers RPh through [facility] and tinsmith helper -Work on lifestyle modifications, DASH diet and increase physical activity -continue amlodipine 5 mg daily -continue chlorthalidone 25 mg daily -continue Hydralazine 25 mg BID (tinsmith helper seems to be unaware of medication, will [...] with Denis Rodgers RPh through CDTM and tinsmith helper -Work on lifestyle modifications, DASH diet and increase physical activity -continue amlodipine 5 mg daily -continue chlorthalidone 12.5 mg daily -continue Hydralazine 25 mg BID (tinsmith helper seems to be unaware of medication, will [...] with Denis Rodgers RPh through CD[facility] and tinsmith helper -Work on lifestyle modifications, DASH diet and increase physical activity -continue lisinopril 20 mg daily -continue chlorthalidone 12.5 mg daily -continue Hydralazine 25 mg BID (tinsmith helper seems to be unaware of medication, will [...] goal today - Comanaged with Denis Rodgers [facility] through [facility] -Work on lifestyle modifications, DASH [...] UTI/vaginal candidiasis / UI. Last eye exam: [facility]. Nov 2023. Last foot exam: 05/02/23 Last [...] UTI/vaginal candidiasis / UI. Last eye exam: [facility]. Nov 2023. Last foot exam: 05/02/23 Last [...] Continue working on lifestyle modification Depression 09/27/2011 Resolved Problems Problem Noted Date Diagnosed Date Resolved Date Stage 4 chronic kidney disease 12/19/2024 12/21/2024 Suprapubic abdominal pain 01/07/2023 Assessment & Plan [...] knee pain 12/02/2022 04/05/2024 COVID-19 07/30/2022 08/12/2022 Class 1 obesity 09/27/2011 12/21/2024 Encounters Date Type Department Care Team Description 12/19/2024 2:00 PM EDT Office Visit [facility] [address] [place] [phone] Dara Hayes MD Pre-operative exam (Primary Dx); Class 1 obesity with serious comorbidity and body mass index (BMI) of 33.0 to 33.9 in adult, unspecified obesity type; Type 2 diabetes mellitus with stage 3b chronic kidney disease, without long-term current use of insulin (CMS/HCC); Stage 3b chronic kidney disease (CMS/HCC) 12/19/2024 Orders Only GENERIC EXTERNAL DATA DEPARTMENT Provider, Generic External Data 12/19/2024 Refill [facility] [address] [place] [phone] Kathryn Jarquin MD Upper back pain; Chronic pain of both knees; Chronic female pelvic pain; Chronic pain syndrome 12/19/2024 Travel 12/18/2024 Telephone [facility] [address] [place] [phone] Kathryn Jarquin MD chart prep 12/17/2024 Orders Only [facility] [address] [place] [phone] Kathryn Jarquin MD Hypokalemia (Primary Dx) 12/17/2024 Results Follow-Up [address] [address] Kathryn Jarquin MD Comprehensive Metabolic Panel 12/10/2024 Travel 12/04/2024 2:30 PM EDT Clinical Support [facility] [address] [place] [address] Rhonda Valdez, tow car driver pain of both knees 12/04/[address] [address] Kathryn Jarquin MD Pre Op Appt request 12/04/2024 Travel 11/28/2024 Refill [facility] [address] [place] [phone] Kathryn Jarquin MD 11/15/[address] [address] Kathryn Jarquin MD Upper back pain; Chronic pain of both knees; Chronic female pelvic pain; Chronic pain syndrome 11/12/[address] [address] Kathryn Jarquin MD 11/09/[address] [address] Kathryn Jarquin MD chart prep 11/07/2024 Orders Only [facility] External Provider, [facility] 11/02/2024 Travel 11/02/2024 Patient Outreach [address] [address] Kathryn Jarquin MD Pre-visit Planning (Pre-visit planning - LVM ) 10/30/2024 Travel 10/30/2024 Telephone [facility] [address] [place] [address] Rhonda Valdez, [place] HYDROGRAPHICAL TECHNICAL OFFICER 10/29/2024 9:00 AM EDT Office Visit [address] [address] Kathryn Jarquin MD Hypertension, unspecified type (Primary [...] whether sciatica present 10/29/2024 Travel 10/26/2024 Telephone [facility] [address] [place] [address] Kathryn Jarquin MD Chart Prep 10/23/2024 10:00 AM EDT Office Visit [facility] [address] [place] [address] Art, Nadine, OD Type 2 diabetes mellitus with retinopathy of both eyes, with long-term current use of insulin, macular edema presence unspecified, unspecified retinopathy severity (CMS/HCC) (Primary Dx) 10/23/2024 Travel 10/19/2024 Telephone [facility] [address] [place] [address] Kathryn Jarquin MD FYI 10/16/2024 Patient Outreach [facility] [address] [place], [place] [phone] Kathryn Jarquin MD Transition Of Care (Tcm) (HDF scheduled. ) 10/03/2024 Orders Only GENERIC EXTERNAL DATA DEPARTMENT Provider, Generic External Data 10/02/2024 Orders Only GENERIC EXTERNAL DATA DEPARTMENT Provider, Generic External Data 10/01/2024 Results Follow-Up [facility] [address] [place] [address] Kathryn Jarquin MD Glucose, Whole Blood, Glucose, Whole Blood 10/01/2024 Orders Only GENERIC EXTERNAL DATA DEPARTMENT Provider, Generic External Data 09/30/2024 Orders Only GENERIC EXTERNAL DATA DEPARTMENT Provider, Generic External Data 09/29/2024 Orders Only GENERIC EXTERNAL DATA DEPARTMENT Provider, Generic External Data 09/28/2024 Orders Only [facility] External Provider, [facility] 09/24/2024 Refill [facility] [address] [place] [address] Rhonda Valdez RN Upper back pain; Chronic pain of both knees; Chronic female pelvic pain; Chronic pain syndrome 09/24/2024 Telephone [facility] [address] [place] [address] Kathryn Jarquin MD Nurse Triage 09/24/2024 Telephone [facility] [address] [place] [address] Kathryn Jarquin MD Med Refill from Last 3 Months Immunizations Immunization Administration [...] Description 01/21/2025 3:00 PM EDT Medication Management [facility] [address] [place] [address] Denis Rodgers, PharmD [address] [place] [address] 01/24/2025 10:15 AM EDT Office Visit [facility] [address] [place] [address] Kathryn Jarquin MD [address] [place] [address] 02/05/2025 3:00 PM EST Clinical Support [facility] [address] [place] [address] Rhonda Valdez, RN [address] [place] [address] 02/22/2025 1:45 PM EST Office Visit [facility] [address] [place] [address] Francesca Martinez, OD [address] [place] [address] Health Maintenance Due Date Last Done Comments [...] 03/29/2025 03/29/2024 Diabetes: Foot Exam 03/29/2025 03/29/2024 SDOH Screening 08/07/2025 08/07/2024 Lipid Panel 12/19/2025 12/19/2024, 03/05, 01/13/2023, Additional history exists Tobacco Screening 12/19/2025 12/19/2024 Mammogram 11/07/2026 11/07/2024, [...] 025 2:28 PM EDT) No Denis Rodgers, NamitaD Procedures [...] PM EDT DIABETES EYE EXAM Routine 11/18/2023 COLONOSCOPY Routine 04/15/2023 ZZZ HISTORICAL HEPATITIS C ANTIBODY RFLX Routine 04/18/2019 8:30 AM EST from Last 3 Months or Most Recently Relevant to Health Maintenance Results * ECG 12 lead (12/21/2024 8:11 AM EDT) Narrative Dara Hayes MD - 12/21/2024 8:11 AM EDT NSR, heart rate 71, no ST-T segment elevation Dara Hayes MD ECG ORDERABLES Final Result * (ABNORMAL) POCT Hgb A1c (12/19/2024 2:48 PM EDT) Pathologist [facility] Hemoglobin A1C 7.4(A) 4.0 - 5.7 % QC Media Lot # [id number] Lot# Expiration Date 10426 Blood 12/19/2024 2:48 PM EDT Dara Hayes MD POINT OF CARE TEST ENTER/EDIT ORDERABLES Final Result * POCT Glucose (12/19/2024 2:29 PM EDT) Only the most recent of2 resultswithin the time period is included. Pathologist [facility] Glucose Blood, POC 196 60 - 200 mg/dL QC Media Lot # [id number] Lot# Expiration Date ,726 Blood Capillary blood specimen / Unknown 12/19/2024 2:29 PM EDT Dara Hayes MD POINT OF CARE TEST ENTER/EDIT ORDERABLES Final Result * (ABNORMAL) Lipid Panel with Reflex to Direct LDL (12/19/2024 1:34 PM EDT) Pathologist [facility] Triglycerides 181(H) <150 mg/dL [facility] Comment:Slight Lipemia.Brown able Triglyceride: less than 150 mg/dLBorderline High Triglyceride 150-199 mg/dLHigh Triglyceride: 200-499 mg/dLVery High Triglyceride: greater than or equal to 5OO mg/dL Cholesterol 237(H) <200 mg/dL [facility] Comment:Desirable Cholestero l: less than 200 mg/dLBorderline High Cholesterol: 200-239 mg/dLHigh Cholesterol: greater than 239 mg/dL LDL Cholesterol Calculated 147(H) <100 mg/dL [facility] Comment:Desirable LDL: less than 100 mg/dLNear Optimal/Above Optimal LDL: 110- 129 mg/dLBorderline High LDL: 130-159 mg/dLHigh LDL: 160-189 mg/dLVery High LDL: greater than or equal to 190 mg/dL HDL Cholesterol 54 >40 mg/dL [facility] Comment:Desirable HDL: great er than 40 mg/dL Note: This HDL assay may give artificially low results in patients with liver disease. Blood 12/19/2024 1:34 PM EDT 12/19/2024 4:03 PM EDT Kathryn Jarquin MD LAB BLOOD ORDERABLES Final Resul t Performing Organization Address [facility]/ZIP Co de Phone Number [facility] [address] [place] [phone] * Magnesium (12/19/2024 1:34 PM EDT) Magnesium 1.7 1.6 - 2.6 mg/dL [facility] Blood Venous blood specimen / Unknown 12/19/2024 1:34 PM EDT 12/19/2024 4:03 PM EDT Kathryn Jarquin MD LAB BLOOD ORDERABLES Final Resul t Performing Organization Address City/[facility]/ZIP Co de Phone Number [facility] [address] [place] [phone] * (ABNORMAL) Basic Metabolic Panel (12/19/2024 1:34 PM EDT) Sodium 140 135 - 145 mmol/L [facility] Potassium 3.7 3.3 - 5.1 mmol/L [facility] Chloride 103 96 - 108 mmol/L [facility] Carbon Dioxide 26 22 - 29 mmol/L [facility] Anion Gap 15 12 - 20 [facility] Urea Nitrogen (BUN) 31(H) 9 - 16 mg/dL [facility] Creatinine, Serum 1.47(H) 0.5 - 1.4 mg/dL [facility] Estimated Glomerular Filt Rate 35 [facility] Comment:Chronic Kidney Disea se: Estimated GFR < 60 mL/min/1.71k5Esxywl Kidney Disease: Estimated GFR < 15 mL/min/1.73m2 Glucose 190(H) 60 - 115 mg/dL [facility] Calcium 9.7 8.4 - 10.2 mg/dL [facility] 12/19/2024 1:34 PM EDT 12/19/2024 4:03 PM EDT us Generic External Data Provider LAB BLOOD ORDERAB LES Final Result [facility] [address] [place] [phone] * (ABNORMAL) Comprehensive Metabolic Panel (12/17/2024 8:16 AM EDT) Sodium 141 135 - 145 mmol/L [facility] Potassium 3.2(L) 3.3 - 5.1 mmol/L [facility] Chloride 103 96 - 108 mmol/L [facility] Carbon Dioxide 24 22 - 29 mmol/L [facility] Anion Gap 17 12 - 20 [facility] Urea Nitrogen (BUN) 24(H) 9 - 16 mg/dL [facility] Creatinine, Serum 1.41(H) 0.5 - 1.4 mg/dL [facility] Estimated Glomerular Filt Rate 37 [facility] Comment:Chronic Kidney Disea se: Estimated GFR < 60 mL/min/1.40y8Ooitxx Kidney Disease: Estimated GFR < 15 mL/min/1.73m2 Glucose 179(H) 60 - 115 mg/dL [facility] Calcium 9.5 8.4 - 10.2 mg/dL [facility] Bilirubin, Total 0.4 0.0 - 1.0 mg/dL [facility] Aspartate Amino Transferase 17 5 - 31 U/L [facility] Alanine Aminotransferase 8 0 - 31 U/L [facility] Total Protein 7.4 6.5 - 8.0 g/dL [facility] Albumin Level 4.4 3.5 - 5.0 g/dL [facility] Alkaline Phosphatase 125(H) 39 - 117 U/L [facility] Blood Venous blood specimen / Unknown 12/17/2024 8:16 AM EDT 12/17/2024 11:04 AM EDT Kathryn Jarquin MD LAB BLOOD ORDERABLES Final Resul t [facility] [address] [place] [phone] * (ABNORMAL) POCT FLORENCIA-14 Urine Drug [...] 2:31 PM EDT Internal Pass Control Lot# [id number] Exp: 02-01-26 Kathryn Jarquin MD POINT OF CARE TEST ENTER/EDIT OR DERABLES Final Result * BI Mammogram Screening Tomosynthesis Bilateral (11/07/2024 11:36 AM EDT) Anatomical Region Laterality Modality Breast Bilateral Mammography 11/07/2024 11:3 6 AM EDT Narrative 11/17/2024 6:20 PM EDT [facility] [address] [place], [place] [address] Mammography Report Signed Patient: Wen Moran MR#: [id number] : 1955 Acct:[id number] Age/Sex: 69 / F ADM Date: 11/07/24 Loc: HO.MAMMO Attending Dr: Kathryn Jarquin MD Ordering Physician: Jaylen Cotton MD Results: 1Negativ e Date of Service: 11/07/24 Follow Up: 1 Year From Orig ina Mammogram Procedure(s): MM tomosynthesis screening BI Accession Number(s): [id number] cc: Kathryn Jarquin MD; Jaylen Cotton MD [...] 11/17/24 1817 DD/ 1136 TD/TT: 11/07/24 1150 Management Trainer: Procedure Note Donotuseinterpreter, Image - 11/17/2024 [facility] [address] [place] [address] Mammography Report Signed Patient: Devin Moran#: [id number] : 7Acct:[id number] Age/Sex: 69 / FADM Date: 11/07/24 Loc: HO.MAMMO Attending Dr: Kathryn Jarquin MD Ordering Physician: Jaylen Cotton MDResults: 1Negativ e Date of Service: 11/07/24Follow Up: 1 Year From Orig inal Mammogram Procedure(s): MM tomosynthesis screening BI Accession Number(s): [id number] cc: Kathryn Jarquin MD; Jaylen Cotton MD [...] 11/17/24 1817 DD/ 1136 TD/TT: 11/07/24 1150 Management Trainer: [facility] External Provider IMG BI PROCEDURES Edited Result - Final * (ABNORMAL) POCT glycosylated hemoglobin (Hgb A1c) (11/03/2024 11:35 AM EDT) Hemoglobin A1C 9.4(A) 4.0 - 5.7 % QC Media Lot # [id number] Lot# Expiration Date Blood Capillary blood specimen / Unknown 11/03/2024 11:35 AM EDT Result [facility] Kathryn Jarquin MD POINT OF CARE TEST [...] Whole Blood 165(H) 60 - 115 mg/dL [facility] Comment:METER #: [id number] 10/03/2024 7:56 AM EDT 10/03/2024 8:01 AM EDT us Generic External Data Provider LAB BLOOD ORDERAB LES Final Result [facility] [address] [place] [phone] * CT Pelvis w/o Contrast (09/28/2024 12:54 PM EDT) Anatomical Region Laterality Modality Body, Pelvis Computed Tomogra phy 09/28/2024 12:5 4 PM EDT Narrative 09/28/2024 2:22 PM EDT [address] [address] [address] Scan Report Signed Patient: Wen Moran MR#: [id number] : 1955 Acct:[id number] Age/Sex: 69 / F ADM Date: 09/28/24 Loc: HO.ED Attending Dr: Ordering Physician: Lauren Persaud NP Date of Service: 09/28/24 Procedure(s): CT pelvis wo IV con Accession Number(s): [id number] cc: Kathryn Jarquin MD; Lauren Persaud NP Report Number: [id number]: Total DLP = 488.00 mGy-cm EXAMINATION: CT [...] 09/28/24 1419 DD/ 1254 TD/TT: 09/28/24 1405 Management Trainer: Procedure Note Donotuseinterpreter, Image - 09/28/[address] [place] [address] [address] Scan Report Signed Patient: Devin Moran#: [id number] : [id number] Age/Sex: 69 / FADM Date: 09/28/24 Loc: HO.ED Attending Dr: Ordering Physician: Lauren Persaud NP Date of Service: 09/28/24 Procedure(s): CT pelvis wo IV con Accession Number(s): [id number] cc: Kathryn Jarquin MD; Lauren Persaud NP Report Number: [id number]: Total DLP = 488.00 mGy-cm EXAMINATION: CT [...] 09/28/24 1419 DD/ 1254 TD/TT: 09/28/24 1405 Management Trainer: [facility] External Provider IMG CT PROCEDURES Final Result * Diabetes Eye Exam (11/18/2023) Eye Exam Normal Normal 11/18/2023 Historical Provider HEALTH MAINTENANCE Final Result * Colonoscopy (04/15/2023) Colonoscopy Normal Normal Narrative Chayo Tobin - 04/15/2023 Recommended 5 year follow up see external hospital admission note on 04/15/2023 us Historical Provider MD HEALTH MAINTENANCE Final Result * HEPATITIS C ANTIBODY RFLX (04/18/2019 8:30 AM EST) HEPATITIS C ANTIBODY NONREACTIVE NONREACTIVE [facility] Comment: Antibodies to HCV not detected; does not exclude early acute HCV infection. 04/18/2019 8:30 AM EST us Kathryn Jarquin MD HISTORICAL/NON ORDERABLE LABS Fi nal Result [facility] [address] [place] [address], from Last 3 Months or Most Recently Relevant to Health Maintenance Insurance [facility] [employer] OPTIONS (HMO D-SNP) [place] [id number] [facility] Care Teams Volunteer Assistant Relationship Specialty Start Date End Date Kathryn Jarquin MD [address] [place] [address] PCP - General Family Medicine 04/04/18 Denis Rodgers, PharmD [address] [place] [address] Pharmacist Internal Medicine 10/22/22
--- OUTSIDE RECORDS SUMMARY | 2024-12-21 10:09 | XMS_ITS | Encounter Summary ---
Author Organization [employer] Address [address] 7t [place] [address] Care Team Providers Care Hobber Name Role Phone Kathryn Jarquin MD Primary Care Provider [phone] Denis Rodgers PharmD Unavailable [phone] Encounter Details Date Type Department Care Team (Late st Contact Info) Description 03/26/2024 Abstract [facility] [address] [place] [address] Mya Garvey [place] Social History Tobacco Use [...] Description 01/21/2025 3:00 PM EDT Medication Management [facility] [address] [place] [address] Denis Rodgers, PharmD [address] [place] [address] 01/24/2025 10:15 AM EDT Office Visit [facility] [address] [place] [address] Kathryn Jarquin MD [address] [place] [address] 02/05/2025 3:00 PM EST Clinical Support [facility] PEDS [address] [place] [address] Rhonda Valdez, DELFINA 505 [place] [address] 02/22/2025 1:45 PM EST Office Visit [facility] OPTOMETRY [address] [place] [address] Francesca Martinez OD [address] [place] [address] documented as of this encounter Goals Goal [...] on filedocumented in this encounter Care Teams Hobber Relationship Specialty Start Date End Date Kathryn Jarquin MD [address] [place] [address] PCP - General Family Medicine 04/04/18 Denis Rodgers, PharmD [address] [place] [address] Pharmacist Internal Medicine 10/22/22 documented as of this encounter
--- OUTSIDE RECORDS SUMMARY | 2024-12-21 10:10 | XMS_ITS | Encounter Summary ---
Author Organization [employer] Address [address] 7t [place] [address] Care Team Providers Care Direct Care Worker Name Role Phone Kathryn Jarquin MD Primary Care Provider [phone] Denis Rodgers PharmD Unavailable [phone] Encounter Details Date Type Department Care Team [...] Medication Management [facility] MEDICINE [address] [place] [address] Denis Rodgers, PharmMirlea 230 [place] [address] 01/24/2025 10:15 AM EDT Office Visit [facility] MEDICINE [address] [place] [address] Kathryn Jarquin MD 230 [place] [address] 02/05/2025 3:00 PM EST Clinical Support [facility] PEDS 505 [place] [address] Rhonda Valdez, RN 505 [place] [address] 02/22/2025 1:45 PM EST Office Visit [facility] OPTOMETRY [address] [place] [address] TarkaFrancesca, OD [address] [place] [address] documented as of this encounter Goals Goal [...] EDT) Sodium 140 135 - 145 mmol/L [facility] Potassium 3.7 3.3 - 5.1 mmol/L [facility] Chloride 103 96 - 108 mmol/L [facility] Carbon Dioxide 26 22 - 29 mmol/L [facility] Anion Gap 15 12 - 20 [facility] Urea Nitrogen (BUN) 31(H) 9 - 16 mg/dL [facility] Creatinine, Serum 1.47(H) 0.5 - 1.4 mg/dL [facility] Estimated Glomerular Filt Rate 35 [facility] Comment:Chronic Kidney Disea se: Estimated GFR < 60 mL/min/1.88p7Pccpcg Kidney Disease: Estimated GFR < 15 mL/min/1.73m2 Glucose 190(H) 60 - 115 mg/dL [facility] Calcium 9.7 8.4 - 10.2 mg/dL [facility] 12/19/2024 1:34 PM EDT 12/19/2024 4:03 PM EDT us Generic External Data Provider LAB BLOOD ORDERAB LES Final Result [facility] [address] [place] [address] [phone] documented in this encounter Visit Diagnoses Not on filedocumented in this encounter Additional Health Concerns Assessment Noted Time PHQ-9 Depression Total Score: 12 03/29/2 024 10:26 AM EST documented as of this encounter Care Teams Direct Care Worker Relationship Specialty Start Date End Date Kathryn Jarquin MD 230 [place] [address] PCP - General Family Medicine 04/04/18 Denis Rodgers, NamitaD [address] [place] [address] Pharmacist Internal Medicine 10/22/22 documented as of this encounter
--- OUTSIDE RECORDS SUMMARY | 2024-12-21 10:10 | XMS_ITS | Encounter Summary ---
Author Organization [employer] Address [address] [facility] 7t [place] [address] Care Team Providers Care Welder Metal Fab Name Role Phone Kathryn Jarquin MD Primary Care Provider Denis Rodgers PharmD Unavailable [phone] Encounter Details Date Type Department Care Team ([facility] st Contact Info) Description 09/30/2023 Orders Only [facility] MEDICINE 230 [place], [place] [phone] Kathryn Jarquin MD 230 [place], [place] [phone] Social History Tobacco Use Types Packs/Day Years [...] Description 01/21/2025 3:00 PM EDT Medication Management [facility] MEDICINE [address] [place] [address] Denis Rodgers, PharmD [address] [place] [address] 01/24/2025 10:15 AM EDT Office Visit [facility] MEDICINE [address] [place] [address] Kathryn Jarquin MD 230 [place] [address] 02/05/2025 3:00 PM EST Clinical Support [facility] CH[facility] MED & PEDS 505 [place] [address] Rhonda Valdez, RN 505 [place] [address] 02/22/2025 1:45 PM EST Office Visit [facility] OPTOMETRY [address] [place] [address] TarkaFrancesca, OD [address] [place] [address] documented as of this encounter Goals Goal Patient Goal Type Associated Problems Recent Progress Patient-Stated? Author Blood Pressure < 140/90 Blood Pressure 122/64( 025 2:28 PM EDT) No Denis Rodgers, PharmD documented as of this encounter Visit Diagnoses Not on filedocumented in this encounter Care Teams Welder Metal Fab Relationship Specialty Start Date End Date Kathryn Jarquin MD [address] [place] [address] PCP - General Family Medicine 04/04/18 Denis Rodgers, PharmD [address] [place] [address] Pharmacist Internal Medicine 10/22/22 documented as of this encounter
--- OUTSIDE RECORDS SUMMARY | 2024-12-21 10:10 | XMS_ITS | Encounter Summary ---
Author Organization [employer] Address [address] [facility] 7t [place] [address] Care Team Providers Care Air Conditioning Supervisor Name Role Phone Kathryn Jarquin MD Primary Care Provider [phone] Denis Rodgers PharmD Unavailable [phone] Reason for Visit * Reason Comments Med Refill Encounter Details Date Type Department Care Team ([facility] st Contact Info) Description 05/28/2024 Refill [facility]INE 230 [place], [place] [phone] Kathryn Jarquin MD [address] [place] [address] Upper back pain; Chronic pain of both [...] Upcoming Encounters Date Type Department Care Team ([facility] Contact Info) Description 01/21/2025 3:00 PM EDT Medication Management [facility] [address] [place] [address] Denis Rodgers, PharmD [address] [place] [address] 01/24/2025 10:15 AM EDT Office Visit [facility] [address] [place] [address] Kathryn Jarquin MD [address] [place] [address] 02/05/2025 3:00 PM EST Clinical Support [facility] CH[facility] MED & PEDS 505 [place] [address] Rhonda Valdez, RN 505 [place] [address] 02/22/2025 1:45 PM EST Office Visit [facility] OPTOMETRY [address] [place] [address] Francesca Martinez, OD 267 [place] [address] documented as of this encounter Goals Goal [...] documented as of this encounter Care Teams Air Conditioning Supervisor Relationship Specialty Start Date End Date Kathryn Jarquin MD [address] [place] [address] PCP - General Family Medicine 04/04/18 Denis Rodgers, PharmD [address] [place] [address] Pharmacist Internal Medicine 10/22/22 documented as of this encounter
--- OUTSIDE RECORDS SUMMARY | 2024-12-21 10:10 | XMS_ITS | Encounter Summary ---
Author Organization [employer] Address [address] 7t [place] [address] Care Team Providers Care Product Safety Coordinator Name Role Phone Kathryn Jarquin MD Primary Care Provider [phone] Denis Rodgers PharmD Unavailable [phone] Encounter Details Date Type Department Care Team ([facility] st Contact Info) Description 04/02/2024 Orders Only [facility] MEDICINE 230 [place] [address] Kathryn Jarquin MD [address] [place] [address] Social History Tobacco Use Types Packs/Day Years [...] [facility] MEDICINE [address] [place] [address] Denis Rodgers, PharmD 230 [place] [address] 01/24/2025 10:15 AM EDT Office Visit [facility] MEDICINE [address] [place] [address] Kathryn Jarquin MD 230 [place] [address] 02/05/2025 3:00 PM EST Clinical Support [facility] MED & PEDS 505 [place] [address] Rhonda Valdez, DELFINA 505 [place] [address] 02/22/2025 1:45 PM EST Office Visit [facility] OPTOMETRY [address] [place] [address] Francesca Martinez OD [address] [place] [address] documented as of this encounter Goals Goal [...] documented as of this encounter Care Teams Product Safety Coordinator Relationship Specialty Start Date End Date Kathryn Jarquin MD 230 [place] [address] PCP - General Family Medicine 04/04/18 Denis Rodgers, PharmD 230 [place] [address] Pharmacist Internal Medicine 10/22/22 documented as of this encounter
--- OUTSIDE RECORDS SUMMARY | 2024-12-21 10:10 | XMS_ITS | Clinical Summary ---
Author Organization [facility] Address [address] [facility] [address] [place] [address] Phone Care Team Providers Care Analysis Lead Name Role Phone Kathryn Jarquin MD Primary Care Provider [phone] Allergies No known active allergies Active Problems [...] Last Assessment & Plan: -follow up with dairy feed sales consultant -avoid nephrotoxic drugs -adjust medication: metformin ER [...] patient's age to complete this topic Insurance [facility] One Care Dual SNP ([id number]) [place] [address] Care Teams Analysis Lead Relationship Specialty Start Date End Date Kathryn Jarquin MD [address] [place] [address] PCP - General Family Medicine 08/31/23
--- OUTSIDE RECORDS SUMMARY | 2024-12-21 10:10 | XMS_ITS | Encounter Summary ---
Author Organization [employer] Address [address] [facility] 7t [place] [address] Care Team Providers Care Pneumatic Jacketer Name Role Phone Kathryn Jarquin MD Primary Care Provider [phone] Denis Rodgers PharmD Unavailable [phone] Reason for Visit * Reason Onset Date Comments Nurse Triage 09/24/2024 Encounter Details Date Type Department Care Team ([facility] st Contact Info) Description 09/24/2024 Telephone [facility] MEDICINE 230 [place] [address] Kathryn Jarquin MD [address] [place], [place] [phone] Nurse Triage Social History Tobacco Use Types [...] RN - 09/24/2024 2:53 PM EDT No string studies director needed as this screen writer speaks Portuguese. Call returned to Wen Moran to triage below at [phone]. Reports having chronic pain that is using Oxycodone for. Pt was looking for status of Rx. Advised was queued to APPEALS COORDINATOR nurse for MASSPAT review and then to [...] Reason: Abdominal pain Please contact pt at [phone]. (Portuguese Speaker) documented in this encounter Plan of Treatment Upcoming Encounters Date Type Department Care Team ([facility] st Contact Info) Description 01/21/2025 3:00 PM EDT Medication Management [facility] MEDICINE 230 [place] [address] Denis Rodgers, PharmD 230 [place] [address] 01/24/2025 10:15 AM EDT Office Visit [facility] MEDICINE 230 [place] [address] Kathryn Jarquin MD 230 [place] [address] 02/05/2025 3:00 PM EST Clinical Support [facility] CHC MED & PEDS 505 [place] [address] Rhonda Valdez, RN 505 [place] [address] 02/22/2025 1:45 PM EST Office Visit [facility] OPTOMETRY [address] [place] [address] Francesca Martinez, OD 267 [place] [address] documented as of this encounter Goals Goal [...] documented as of this encounter Care Teams Pneumatic Jacketer Relationship Specialty Start Date End Date Kathryn Jarquin MD [address] [place] [address] PCP - General Family Medicine 04/04/18 Denis Rodgers, PharmD [address] [place] [address] Pharmacist Internal Medicine 10/22/22 documented as of this encounter
--- OUTSIDE RECORDS SUMMARY | 2024-12-21 10:10 | XMS_ITS | Encounter Summary ---
Author Organization [employer] Address [address] [facility] [address] 7t [place] [address] Care Team Providers Care Multi Sensor Operator Name Role Phone Kathryn Jarquin MD Primary Care Provider [phone] Denis Rodgers PharmD Unavailable [phone] Encounter Details Date Type Department Care Team [...] Description 01/21/2025 3:00 PM EDT Medication Management [facility] MEDICINE 230 [place] [address] Denis Rodgers, PharmD 230 [place] [address] 01/24/2025 10:15 AM EDT Office Visit [facility] MEDICINE [address] [place] [address] Kathryn Jarquin MD 230 [place] [address] 02/05/2025 3:00 PM EST Clinical Support [facility] MED [facility] PEDS 505 [place] [address] Rhonda Valdez, RN 505 [place] [address] 02/22/2025 1:45 PM EST Office Visit [facility] OPTOMETRY 267 [place] [address] Francesca Martinez, OD 267 [place] [address] documented as of this encounter Goals Goal [...] documented as of this encounter Care Teams Multi Sensor Operator Relationship Specialty Start Date End Date Kathryn Jarquin MD 230 [place] [address] PCP - General Family Medicine 04/04/18 Denis Rodgers, NamitaD 230 [place] [address] Pharmacist Internal Medicine 10/22/22 documented as of this encounter
--- OUTSIDE RECORDS SUMMARY | 2024-12-21 10:10 | XMS_ITS | Encounter Summary ---
Author Organization [employer] Address [address] [facility] [address] [address] 7t [place] [address] Care Team Providers Care Mill Operator Name Role Phone Kathryn Jarquin MD Primary Care Provider [phone] Denis Rodgers PharmD Unavailable [phone] Encounter Details Date Type Department Care Team (Late st Contact Info) Description 01/14/2023 Orders Only [facility] MEDICINE 230 [place] [address] Kathryn Jarquin MD 230 [place] [address] Stage 3b chronic kidney disease (CMS/HCC) (Primary [...] Description 01/21/2025 3:00 PM EDT Medication Management [facility] MEDICINE [address] [place] [address] Denis Rodgers, NamitaD 230 [place] [address] 01/24/2025 10:15 AM EDT Office Visit [facility] MED[facility] [address] [place] [address] Kathryn Jarquin MD 230 [place] [address] 02/05/2025 3:00 PM EST Clinical Support [facility] MED & PEDS 505 [place] [address] Rhonda Valdez, RN 505 [place] [address] 02/22/2025 1:45 PM EST Office Visit [facility] OPTOMETRY 267 [place] [address] Francesca Martinez, OD [address] [place] [address] Scheduled Orders Name Type Priority Associated Diagnoses [...] Diagnoses Diagnosis Stage 3b chronic kidney disease ([facility])- Primary Essential hypertension Unspecified essential hypertension Type 2 diabetes mellitus with hyperglycemia, without long-term current use of insulin ([facility]) documented in this encounter Care Teams Mill Operator Relationship Specialty Start Date End Date Kathryn Jarquin MD [address] [place] [address] PCP - General Family Medicine 04/04/18 Denis Rodgers, PharmD [address] [place] [address] Pharmacist Internal Medicine 10/22/22 documented as of this encounter
--- OUTSIDE RECORDS SUMMARY | 2024-12-21 10:10 | XMS_ITS | Encounter Summary ---
Author Organization [employer] Address [address] 7t [place] [address] Care Team Providers Care Web Systems Developer Name Role Phone Kathryn Jarquin MD Primary Care Provider [phone] Denis Rodgers PharmD Unavailable [phone] Encounter Details Date Type Department Care Team (Late st Contact Info) Description 12/17/2024 Orders Only [facility] MEDICINE 230 [place] [address] Kathryn Jarquin MD [address] [place] [address] Hypokalemia (Primary Dx) Social History Tobacco Use [...] ([facility] st Contact Info) Description 01/21/2025 3:00 PM EDT Medication Management [facility] MEDICINE [address] [place] [address] Denis Rodgers, PharmD 230 [place] [address] 01/24/2025 10:15 AM EDT Office Visit [facility] MEDICINE [address] [place] [address] Kathryn Jarquin MD 230 [place] [address] 02/05/2025 3:00 PM EST Clinical Support [facility] MED & PEDS 505 [place] [address] Rhonda Valdez, RN 505 [place] [address] 02/22/2025 1:45 PM EST Office Visit [facility] OPTOMETRY [address] [place] [address] Francesca Martinez, OD 267 [place] [address] Scheduled Orders Name Type Priority Associated Diagnoses [...] EDT) Magnesium 1.7 1.6 - 2.6 mg/dL [facility] Blood Venous blood specimen / Unknown 12/19/2024 1:34 PM EDT 12/19/2024 4:03 PM EDT Kathryn Jarquin MD LAB BLOOD ORDERABLES Final Resul t [facility] [address] [place] [address] [phone] documented in this encounter Visit Diagnoses Diagnosis Hypokalemia- Primary Hypopotassemia documented in this encounter Additional Health Concerns Assessment Noted Time PHQ-9 Depression Total Score: 12 03/29/ 024 10:26 AM EST documented as of this encounter Care Teams Web Systems Developer Relationship Specialty Start Date End Date Kathryn Jarquin MD 230 [place] [address] PCP - General Family Medicine 04/04/18 Denis Rodgers, PharmD [address] [place] [address] Pharmacist Internal Medicine 10/22/22 documented as of this encounter
--- OUTSIDE RECORDS SUMMARY | 2024-12-21 10:10 | XMS_ITS | Encounter Summary ---
Author Organization [employer] Address [address] [facility] 7t [place] [address] Care Team Providers Care Dive Master Name Role Phone Kathryn Jarquin MD Primary Care Provider [phone] Denis Rodgers PharmD Unavailable [phone] Reason for Visit * Reason Comments Med Refill Encounter Details Date Type Department Care Team ([facility] st Contact Info) Description 12/19/2024 Refill [facility] 230 [place] [address] Kathryn Jarquin MD 230 [place] [address] Upper back pain; Chronic pain of both [...] Upcoming Encounters Date Type Department Care Team ([facility] Contact Info) Description 01/21/2025 3:00 PM EDT Medication Management [facility] [address] [place] [address] Denis Rodgers, PharmD 230 [place] [address] 01/24/2025 10:15 AM EDT Office Visit [facility] [address] [place] [address] Kathryn Jarquin MD 230 [place] [address] 02/05/2025 3:00 PM EST Clinical Support [facility] MED [facility]EDS 505 [place] [address] Rhonda Valdez, RN 505 [place] [address] 02/22/2025 1:45 PM EST Office Visit [facility] OPTOMETRY [address] [place] [address] Francesca Martinez, OD 267 [place] [address] documented as of this encounter Goals Goal [...] documented as of this encounter Care Teams Dive Master Relationship Specialty Start Date End Date Kathryn Jarquin MD 230 [place] [address] PCP - General Family Medicine 04/04/18 Denis Rodgers, PharmD 230 [place] [address] Pharmacist Internal Medicine 10/22/22 documented as of this encounter
--- OUTSIDE RECORDS SUMMARY | 2024-12-21 10:10 | XMS_ITS | Encounter Summary ---
Author Organization [email or web address] Address [address] [facility] 7t [place] [address] Care Team Providers Care Anesthesiology Physician Name Role Phone Kathryn Jarquin MD Primary Care Provider [phone] Denis Rodgers PharmD Unavailable [phone] Reason for Visit * Reason Onset Date Comments Results 12/17/2024 Encounter Details Date Type Department Care Team (Latest Contact Info) Description 12/17/2024 Results Follow-Up [facility] MEDICINE 230 [place] [address] Kathryn Jarquin MD 230 [place] [address] Comprehensive Metabolic Panel Social History Tobacco Use [...] EDT T/C placed to pt utilizing S #[id number] regarding below results and POC. Informed of [...] Description 01/21/2025 3:00 PM EDT Medication Management [facility] MEDICINE [address] [place] [address] Denis Rodgers, PharmMirela 230 [place] [address] 01/24/2025 10:15 AM EDT Office Visit [facility] MEDICINE [address] [place] [address] Kathryn Jarquin MD 230 [place] [address] 02/05/2025 3:00 PM EST Clinical Support [facility] MED & PEDS 505 [place] [address] Rhonda Valdez, DELFINA 505 [place] [address] 02/22/2025 1:45 PM EST Office Visit [facility] OPTOMETRY [address] [place] [address] Francesca Martinez, OD 267 [place] [address] documented as of this encounter Goals Goal [...] documented as of this encounter Care Teams Anesthesiology Physician Relationship Specialty Start Date End Date Kathryn Jarquin MD 230 [place], [place] [phone] PCP - General Family Medicine 04/04/18 Denis Rodgers, NamitaD 230 [place] [address] Pharmacist Internal Medicine 10/22/22 documented as of this encounter
--- OUTSIDE RECORDS SUMMARY | 2024-12-21 10:10 | XMS_ITS | Encounter Summary ---
Author Organization [employer] Address [address] [facility] [address] 7t [place] [address] Care Team Providers Care Online Banking Specialist Name Role Phone Kathryn Jarquin MD Primary Care Provider [phone] Denis Rodgers PharmD Unavailable [phone] Encounter Details Date Type Department Care Team (Late st Contact Info) Description 01/14/2023 Orders Only [facility] [address] [place] [address] Kathryn Jarquin MD 230 [place] [address] Stage 3b chronic kidney disease (CMS/HCC) (Primary [...] 01/21/2025 3:00 PM EDT Medication Management [facility] [address] [place] [phone] Denis Rodgers, Swapnil 230 [place] [address] 01/24/2025 10:15 AM EDT Office Visit [facility] [address] [place] [phone] Kathryn Jarquin MD 230 [place] [address] 02/05/2025 3:00 PM EST Clinical Support [facility] [address] [place], [place] [phone] Rhonda Valdez, RN 505 [place] [address] 02/22/2025 1:45 PM EST Office Visit [facility] [address] [place] [address] Francesca Martinez, OD 267 [place] [address] documented as of this encounter Goals Goal Patient Goal Type Associated Problems Recent Progress Patient-Stated? Author Blood Pressure < 140/90 Blood Pressure 122/64( 025 2:28 PM EDT) No Denis Rodgers, PharmD documented as of this encounter Visit Diagnoses Diagnosis Stage 3b chronic kidney disease (CMS/HCC)- Primary Essential hypertension Unspecified essential hypertension Type 2 diabetes mellitus with hyperglycemia, without long-term current use of insulin ([facility]) documented in this encounter Care Teams Online Banking Specialist Relationship Specialty Start Date End Date Kathryn Jarquin MD 230 [place], [place] [phone] PCP - General Family Medicine 04/04/18 Denis Rodgers, Swapnil 230 [place] [address] Pharmacist Internal Medicine 10/22/22 documented as of this encounter
--- OUTSIDE RECORDS SUMMARY | 2024-12-21 10:10 | XMS_ITS | Encounter Summary ---
Author Organization [employer] Address 75 [facility] 7t [place] [address] Care Team Providers Care Parachute Marker Name Role Phone Kathryn Jarquin MD Primary Care Provider [phone] Denis Rodgers PharmD Unavailable [phone] Reason for Visit * Reason Onset Date Comments Med Refill 09/24/2024 Encounter Details Date Type Department Care Team (Late st Contact Info) Description 09/24/2024 Telephone [facility] [address] [place] [address] Kathryn Jarquin MD 230 [place], [place] [phone] Med Refill Social History Tobacco Use Types [...] immediate release tablet To be sent to: [facility] - [place], [place] - [address] [place] [address] documented in this encounter Plan of Treatment Upcoming Encounters Date Type Department Care Team ([facility] st Contact Info) Description 01/21/2025 3:00 PM EDT Medication Management [facility] [address] [place] [phone] Denis Rodgers, PharmD 230 [place] [address] 01/24/2025 10:15 AM EDT Office Visit [facility] [address] [place] [phone] Kathryn Jarquin MD 230 [place] [address] 02/05/2025 3:00 PM EST Clinical Support [facility] 505 [place] [address] Rhonda Valdez, DELFINA 505 [place] [address] 02/22/2025 1:45 PM EST Office Visit [facility] OPT[facility] [address] [place] [address] Francesca Martinez, OD [address] [place] [address] documented as of this encounter Goals Goal [...] documented as of this encounter Care Teams Parachute Marker Relationship Specialty Start Date End Date Kathryn Jarquin MD 230 [place] [address] PCP - General Family Medicine 04/04/18 Denis Rodgers, PharmD 230 [place] [address] Pharmacist Internal Medicine 10/22/22 documented as of this encounter
--- OUTSIDE RECORDS SUMMARY | 2024-12-21 10:10 | XMS_ITS | Encounter Summary ---
Author Organization [employer] Address 75 [facility] 7t [place] [address] Care Team Providers Care Fast Food Restaurant Manager Name Role Phone Kathryn Jarquin MD Primary Care Provider [phone] Denis Rodgers PharmD Unavailable [phone] Reason for Visit * Reason Onset Date Comments chart prep 12/18/2024 Encounter Details Date Type Department Care Team ([facility] st Contact Info) Description 12/18/2024 Telephone [facility] 230 [place] [address] Kathryn Jarquin MD 230 [place], [place] [phone] chart prep Social History Tobacco Use Types [...] Description 01/21/2025 3:00 PM EDT Medication Management [facility] [address] [place] [phone] Denis Rodgers, NamitaD 230 [place] [address] 01/24/2025 10:15 AM EDT Office Visit [facility] [address] [place] [phone] Kathryn Jarquin MD 230 [place] [address] 02/05/2025 3:00 PM EST Clinical Support [facility] 505 [place] [address] Rhonda Valdez, RN 505 [place] [address] 02/22/2025 1:45 PM EST Office Visit [facility] [address] [place], [place] [phone] Francesca Martinez, OD 267 [place] [address] documented as of this encounter Goals Goal [...] of this encounter Care Teams Fast Food Restaurant Manager Relationship Specialty Start Date End Date Kathryn Jarquin MD 230 [place] [address] PCP - General Family Medicine 04/04/18 Denis Rodgers, PharmD [address] [place] [phone] Pharmacist Internal Medicine 10/22/22 documented as of this encounter
--- OUTSIDE RECORDS SUMMARY | 2024-12-21 10:10 | XMS_ITS | Encounter Summary ---
Author Organization [employer] Address 75 [facility] 7t [place] [address] Care Team Providers Care Pharmacy Technician Name Role Phone Kathryn Jarquin MD Primary Care Provider [phone] Denis Rodgers PharmD Unavailable [phone] Reason for Visit * Reason Comments Med Refill Encounter Details Date Type Department Care Team ([facility] st Contact Info) Description 09/19/2024 Refill [facility] 230 [place], [place] [phone] Kathryn Jarquin MD 230 [place], [place] [phone] Hypomagnesemia Social History Tobacco Use Types Packs/Day [...] Upcoming Encounters Date Type Department Care Team ([facility] st Contact Info) Description 01/21/2025 3:00 PM EDT Medication Management [facility] [address] [place] [phone] Denis Rodgers, PharmD 230 [place] [address] 01/24/2025 10:15 AM EDT Office Visit [facility] [address] [place] [phone] Kathryn Jarquin MD 230 [place] [address] 02/05/2025 3:00 PM EST Clinical Support [facility] 505 [place] [address] Rhonda Valdez, DELFINA 505 [place] [address] 02/22/2025 1:45 PM EST Office Visit [facility] OPT[facility] [address] [place] [address] Francesca Martinez, OD 267 [place] [address] documented as of this encounter Goals Goal [...] documented as of this encounter Care Teams Pharmacy Technician Relationship Specialty Start Date End Date Kathryn Jarquin MD 230 [place] [address] PCP - General Family Medicine 04/04/18 Denis Rodgers, PharmD 230 [place] [address] Pharmacist Internal Medicine 10/22/22 documented as of this encounter
--- OUTSIDE RECORDS SUMMARY | 2024-12-21 10:10 | XMS_ITS | Encounter Summary ---
Author Organization [employer] Address 75 [facility] 7t [place] [address] Care Team Providers Care Electric Deicer Inspector Name Role Phone Kathryn Jarquin MD Primary Care Provider [phone] Denis Rodgers PharmD Unavailable Reason for Visit * Reason Comments Med Refill Encounter Details Date Type Department Care Team ([facility] st Contact Info) Description 05/29/2024 Refill [facility] [address] [place], [place] [phone] Kathryn Jarquin MD 230 [place] [address] Upper back pain; Chronic pain of both [...] Upcoming Encounters Date Type Department Care Team ([facility] Contact Info) Description 01/21/2025 3:00 PM EDT Medication Management [facility] [address] [place] [phone] Denis Rodgers, PharmD 230 [place] [address] 01/24/2025 10:15 AM EDT Office Visit [facility] [address] [place] [address] Kathryn Jarquin MD 230 [place] [address] 02/05/2025 3:00 PM EST Clinical Support [facility] [address] [place] [address] Rhonda Valdez, RN 505 [place] [address] 02/22/2025 1:45 PM EST Office Visit [facility] OPTOMETRY [address] [place] [address] Francesca Martinez, OD [address] [place] [address] documented as of this encounter Goals Goal [...] documented as of this encounter Care Teams Electric Deicer Inspector Relationship Specialty Start Date End Date Kathryn Jarquin MD 230 [place] [address] PCP - General Family Medicine 04/04/18 Denis Rodgers, PharmD 230 [place] [address] Pharmacist Internal Medicine 10/22/22 documented as of this encounter
--- OUTSIDE RECORDS SUMMARY | 2024-12-21 10:10 | XMS_ITS | Encounter Summary ---
Author Organization [facility], Address [address] [place] [address] Phone Care Team Providers Care Tax Accounting Manager Name Role Phone Kathryn Jarquin MD Primary Care Provider [phone] Encounter Details Date Type Department Care Team (Late st Contact Info) Description 09/07/2023 Documentation Only [facility], [address] [place] [address] Doug Luna [address] [place] [address] Social History Tobacco Use Types [...] on filedocumented in this encounter Care Teams Tax Accounting Manager Relationship Specialty Start Date End Date Kathryn Jarquin MD [address] [place] [address] PCP - General Family Medicine 08/31/23 documented as of this encounter
[2024-12-21 11:17] LABS: MANUAL DIFF FLAG NO
[2024-12-21 11:33] LABS: Hematocrit 37.7 % (37.0-47.0); Hemoglobin 12.2 g/dl (12.0-16.0); Imm Gran Abs Auto 0.04 X10*3/uL (0.00-0.03); Imm Gran Pct Auto 0.3 % (0.0-0.4); Lymphocytes Absolute Auto 4.4 X10*3/uL (1.2-4.9); Mean Corpuscular HGB Conc 32.4 g/dl (31.0-35.0); Mean Corpuscular Hemoglobin 27.0 pg (27.0-33.0); Mean Corpuscular Volume 83.4 fL (80.0-98.0); NRBC Abs Auto 0.000 X10*3/uL (0.0-0.012); NRBC Pct Auto 0.0 /100WBC (0.0-0.2); Platelet Count 284 X10*3/uL (160-400); Red Blood Count 4.52 X10*6/uL (4.20-5.50); White Blood Count 11.5 X10*3/uL (4.8-10.8)
[2024-12-21 12:11] LABS: Anion Gap 15 (12-20); Blood Urea Nitrogen 26 mg/dL (9-16); Calcium 9.6 mg/dL (8.4-10.2); Carbon Dioxide 26 mmol/L (22-29); Chloride 104 mmol/L (96-108); Estimated Glomerular Filt Rate 34; Potassium 3.7 mmol/L (3.3-5.1); Sodium 141 mmol/L (135-145)
== END 2024-12-21 09:37 | disposition home or self-care (01) ==
LOC: HO.HHCL 09:36
PROVIDERS: General Practice; PCP Family Medicine; Visit Provider Internal Medicine Hypertension Specialist
DX: Z01.818 Encounter for other preprocedural examination (principal); E87.6 Hypokalemia
CPT/HCPCS: 36415; 80048; 85025

== ENCOUNTER 2025-01-04 06:21 | Day surgery (SDC) | payer OTHER, SELFPAY ==
--- OUTSIDE RECORDS SUMMARY | 2024-12-04 14:30 | XMS_ITS | Encounter Summary ---
Author Organization [employer] Address [address] [facility] 7t [place] [address] Care Team Providers Care Box Stapler Name Role Phone Kathryn Jarquin MD Primary Care Provider [phone] Denis Rodgers PharmD Unavailable [phone] Reason for Visit * Reason Comments CALL CENTER RECRUITER Encounter Details Date Type Department Care Team (Latest Contact Info) Description 12/04/2024 2:30 PM EDT Clinical Support [facility] [address] [place] [address] Rhonda Valdez, RN [address] [place], [place] Chronic pain of both knees Social History [...] Progress Notes * Rhonda Valdez RN - 12/04/2024 2:30 PM EDT SUBJECTIVE: Wen Moran is a 69 y.o. year old female who presents for CALL CENTER RECRUITER Preferred language for medical information: Thai Interpreted needed: No Wen Moran does report adherence to Oxycodone 5 mg, take 1 tablet every 24 hours PRN, last refilled 11/19/24. The patient last took Oxycodone on: 12/04/24 Medication is: 50% % effective at alleviating pain. BZO from an outside provider. OBJECTIVE: FINANCIAL LEGAL ASSISTANT checked: 12/04/2024 Pill count completed for Oxycodone , count today is 14 , anticipated count should be 12, this is asexpected. Vital Signs Pain Score: 10-Worst pain ever Pain Loc: Back Pain Education: Yes Last PCP visit: 10/29/24 BPI completed on: 06/21/24 , pain severity score: 9, activity interference score: 8 Controlled substance agreement signed: Controlled Substance Agreement 06/21/2024 CALL CENTER RECRUITER Tier: 2 Current Medications[1] Smoking status: Denies ETOH use: Denies Illicit substances: Denies Marijuana use: No Lab Results Component Value Date POCTHC Negative 12/04/2024 POCCOCAINEUR Negative 12/04/2024 POCOPIATEUR Negative 12/04/2024 DOAUR Negative 12/04/2024 POCAMPHETAMI Negative 12/04/2024 POCBENZODIUR Positive (A) 12/04/2024 POCBARBSCRN Negative 12/04/2024 POCMETHADOUR Negative 12/04/2024 POCBUPSCRN Negative 12/04/2024 POCTCAUR Negative 12/04/2024 POCMDMAUR Negative 12/04/2024 POCOXYCODONE Positive (A) 12/04/2024 POCPHENCYCUR Negative 12/04/2024 PROPOXUR Negative 12/04/2024 FENTANYLURIN Negative 12/04/2024 ASSESSMENT: Encounter Diagnosis Name Primary? Chronic pain of both knees PLAN: Information on pain group given: Previously discussed Information on acupuncture given: Previously discussed Narcan education provided: Previously discussed Narcan prescription: active Wen Moran will continue taking medication as prescribed and follow up at the next [facility] visit or sooner if needed. Wen Moran has verbalized understanding of care plan. Future Appointments Date Time Provider Department Center 12/10/2024 3:00 PM Denis Rodgers PharmD [facility] 12/19/2024 2:00 PM Dara Hayes MD [facility] 02/05/2025 3:[address] [facility] 02/22/2025 1:45 PM Francesca Martinez OD [facility] Rhonda Valdez RN [1] Current Outpatient Medications: acetaminophen (Tylenol Extra Strength) 500 MG tablet, Take 2 tablets (1,000 mg) by mouth every 8 (eight) hours if needed for mild pain or moderate pain., Disp: 60 tablet, Rfl: 2 albuterol (2.5 MG/3ML) 0.083% nebulizer solution, INHALE 1 AMPULE USING A NEBULIZER EVERY 6 HOURS NEEDED FOR SHORTNESS OF BREATH, Disp: 90 mL, Rfl: 1 albuterol (ProAir HFA) 108 (90 Base) MCG/ACT inhaler, inhale 2 puff by inhalation route every 4 - 6hours as needed for difficulty breathing, 4 times / day, Disp: , Rfl: Alcohol Swabs 70 % pads, Use to test blood sugar 2 times daily, Disp: 100 each, Rfl: 5 amLODIPine (Norvasc) 5 MG tablet, TAKE 1 TABLET BY MOUTH EVERY EVENING, Disp: 90 tablet, Rfl: 3 Aspirin EC Adult Low Dose 81 MG EC tablet, TAKE 1 TABLET BY MOUTH AT BEDTIME, Disp: 90 tablet, Rfl:3 atorvastatin (Lipitor) 80 MG tablet, TAKE 1 TABLET BY MOUTH AT BEDTIME, Disp: 90 tablet, Rfl: 3 Blood Glucose Monitoring Suppl (FreeStyle Leland Lite) w/Device kit, Use to test blood sugar 2 times daily, Disp: 1 kit, Rfl: 0 chlorthalidone (Hygroton) 25 MG tablet, TAKE 1 TABLET BY MOUTH EVERY MORNING, Disp: 90 tablet, Rfl:3 clonazePAM (KlonoPIN) 2 MG tablet, Take 2 mg by mouth at bedtime., Disp: , Rfl: cloNIDine (Catapres) 0.1 MG tablet, TAKE 1 TABLET BY MOUTH TWICE DAILY NEEDED FOR PANIC ATTACK, Disp: , Rfl: D3-1000 25 MCG (1000 UT) capsule, TAKE 1 CAPSULE BY MOUTH EVERY MORNING, Disp: 90 capsule, Rfl: 2 FLUoxetine (PROzac) 20 MG capsule, , Disp: , Rfl: glucose 4 g chewable tablet, Chew 4 tablets (16 g) if needed for low blood sugar., Disp: 30 tablet,Rfl: 11 glucose blood (FREESTYLE LITE) test strip, Use to test blood sugar 2 times daily, Disp: 100 each, Rfl: 5 hydrALAZINE (Apresoline) 25 MG tablet, TAKE 1 TABLET BY MOUTH TWICE DAILY IN THE MORNING AND IN THEEVENING WITH FOOD, Disp: 180 tablet, Rfl: 2 insulin degludec (Tresiba FlexTouch) 100 UNIT/ML injection, Administer 10 units subcutaneously oncedaily, Disp: 3 mL, Rfl: 12 Lancets misc, Use to test blood sugar 2 times daily, Disp: 100 each, Rfl: 5 levothyroxine (Synthroid, Levoxyl) 50 MCG tablet, TAKE 1 TABLET BY MOUTH EVERY MORNING, Disp: 90 tablet, Rfl: 2 Linzess 290 MCG capsule, ABENA Dietz [place], Disp: , Rfl: mirtazapine (Remeron) 45 MG tablet, Take 45 mg by mouth at bedtime., Disp: , Rfl: naloxone (Narcan) 4 mg/0.1 mL nasal spray, Administer 1 spray (4 mg) into affected nostril(s) if needed for opioid reversal or respiratory depression. May repeat every 2-3 minutes if needed, alternating nostrils, until medical assistance becomes available., Disp: 2 each, Rfl: 0 omeprazole (PriLOSEC) [address] capsule, TAKE 1 CAPSULE ORALLY DAILY, Disp: , Rfl: oxyCODONE (Roxicodone) 5 MG immediate release tablet, Take 1 tablet (5 mg) by mouth if needed at bedtime for severe pain., Disp: 28 tablet, Rfl: 0 pen needle 32G x 4 mm misc, Use daily with insulin, Disp: 100 each, Rfl: 11 prazosin (Minipress) 1 MG capsule, , Disp: , Rfl: Premarin 0.625 MG/GM cream, INSERT 1 APPLICATORFUL VAGINALLY ONCE DAILY AT BEDTIME FOR 2 WEEKS, THEN USE 1 APPLICATORFUL TWICE WEEKLY, Disp: 30 g, Rfl: 3 QUEtiapine XR (SEROquel XR) 200 MG 24 hr tablet, Take 200 mg by mouth at bedtime., Disp: , Rfl: Tirzepatide (Mounjaro) 7.5 MG/0.5ML solution auto-injector, Inject 7.5 mg under the skin 1 (one) time per week., Disp: 2 mL, Rfl: 11 documented in this encounter Plan of Treatment Upcoming Encounters Date Type Department Care Team (Late st Contact Info) Description 12/10/2024 3:00 PM EDT Medication Management [facility] [address] [place] [phone] Denis Rodgers, PharmD [address] [place] [address] 12/19/2024 2:00 PM EDT Office Visit [facility] [address] [place] [address] Dara Hayes MD [address] [place] [address] 02/05/2025 3:00 PM EST Clinical Support [facility] [address] [place] [address] Rhonda Valdez, DELFINA [address] [place] [address] 02/22/2025 1:45 PM EST Office Visit [facility] [address] [place] [address] Francesca Martinez, OD [address] [place] [address] documented as of this encounter Goals Goal Patient Goal Type Associated Problems Recent Progress Patient-Stated? Author Blood Pressure < 140/90 Blood Pressure 134/74( 025 4:06 PM EDT) No Denis Rodgers, PharmD documented as of this encounter Procedures Procedure Name Priority Date/Time Associated Diagnosis Comments POCT FLORENCIA-14 URINE DRUG SCREEN Routine 12/04/2024 2:31 PM EDT Chronic pain of both knees documented in this encounter Results * (ABNORMAL) POCT FLORENCIA-14 Urine Drug Screen (12/04/2024 2:31 PM EDT) THC Negative Negative Cocaine Screen, Urine Negative Negative Opiate Screen, Urine Negative Negative Methamphetamine Screen Urine Negative Negative Amphetamine Screen, Urine Negative Negative Benzodiazepines Screen, Urine Positive(A) Negative Barbiturate Screen, Urine Negative Negative Methadone Screen, Urine Negative Negative Buprenophine Screen, Urine Negative Negative TCA, Urine Negative Negative MDMA Urine Negative Negative ng/mL Oxycodone Screen, Urine Positive(A) Negative Phencyclidine (PCP), Urine Negative Negative Propoxyphene, Urine Negative Negative Fentanyl, Urine Negative Negative Urine Urine specimen obtained by clean catch procedure / Unknown 12/04/2024 2:31 PM EDT Narrative Rhonda Valdez RN - 12/04/2024 2:31 PM EDT Internal Pass Control Lot# [id number] Exp: 02-01-26 Kathryn Jarquin MD POINT OF CARE TEST ENTER/EDIT OR DERABLES Final Result documented in this encounter Visit Diagnoses Diagnosis Chronic pain of both knees documented in this encounter Additional Health Concerns Assessment Noted Time PHQ-9 Depression Total Score: 12 03/29/2 024 10:26 AM EST documented as of this encounter Care Teams Box Stapler Relationship Specialty Start Date End Date Kathryn Jarquin MD [address] [place] [address] PCP - General Family Medicine 04/04/18 Denis Rodgers, NamitaD [address] [place] [phone] Pharmacist Internal Medicine 10/22/22 documented as of this encounter
--- OUTSIDE RECORDS SUMMARY | 2024-12-05 07:01 | XMS_ITS | Encounter Summary ---
Author Organization [employer] Address [address] [facility] 7t [place] [address] Care Team Providers Care Price Accuracy Supervisor Name Role Phone Kathryn Jarquin MD Primary Care Provider [phone] Denis Rodgers PharmD Unavailable [phone] Reason for Visit * Reason Comments Med Refill Encounter Details Date Type Department Care Team ([facility] st Contact Info) Description 05/28/2024 Refill [facility] [address] [place], [place] [phone] Kathryn Jarquin MD [address] [place] [address] Upper back pain; Chronic pain of both [...] Description 12/10/2024 3:00 PM EDT Medication Management [facility] [address] [place] [phone] Denis Rodgers, PharmD [address] [place] [address] 12/19/2024 2:00 PM EDT Office Visit [facility] [address] [place] [phone] Dara Hayes MD [address] [place] [address] 02/05/2025 3:00 PM EST Clinical Support [facility] [address] [place] [address] Rhonda Valdez, RN [address] [place] [address] 02/22/2025 1:45 PM EST Office Visit [facility] [address] [place] [address] Francesca Martinez, OD [address] [place] [address] documented as of this encounter Goals Goal [...] documented as of this encounter Care Teams Price Accuracy Supervisor Relationship Specialty Start Date End Date Kathryn Jarquin MD [address] [place] [address] PCP - General Family Medicine 04/04/18 Denis Rodgers, PharmD [address] [place] [address] Pharmacist Internal Medicine 10/22/22 documented as of this encounter
--- OUTSIDE RECORDS SUMMARY | 2024-12-05 07:01 | XMS_ITS | Encounter Summary ---
Author Organization [employer] Address [address] [facility] 7t [place] [address] Care Team Providers Care Regional Retail Sales Manager Name Role Phone Kathryn Jarquin MD Primary Care Provider [phone] Denis Rodgers PharmD Unavailable [phone] Encounter Details Date Type Department Care Team ([facility] st Contact Info) Description 10/01/2024 Results Follow-Up [facility] [address] [place] [address] Kathryn Jarquin MD [address] [place] [address] Glucose, Whole Blood, Glucose, Whole Blood Social [...] ([facility] st Contact Info) Description 12/10/2024 3:00 PM EDT Medication Management [facility] [address] [place] [phone] Denis Rodgers, PharmD [address] [place] [address] 12/19/2024 2:00 PM EDT Office Visit [facility] [address] [place] [address] Dara Hayes MD [address] [place] [address] 02/05/2025 3:00 PM EST Clinical Support [facility] [address] [place] [address] Rhonda Valdez, DELFINA [address] [place] [address] 02/22/2025 1:45 PM EST Office Visit [facility] [address] [place] [address] Francesca Martinez, OD [address] [place] [address] documented as of this encounter Goals Goal [...] documented as of this encounter Care Teams Regional Retail Sales Manager Relationship Specialty Start Date End Date Kathryn Jarquin MD [address] [place] [address] PCP - General Family Medicine 04/04/18 Denis Rodgers, PharmD [address] [place] [address] Pharmacist Internal Medicine 10/22/22 documented as of this encounter
--- OUTSIDE RECORDS SUMMARY | 2024-12-05 07:02 | XMS_ITS | Clinical Summary ---
Author Organization [employer] Address [address] [facility] [address] [place] [address] Care Team Providers Care Security Systems Installer Name Role Phone Kathryn Jarquin MD Primary Care Provider [phone] Denis Rodgers PharmD Unavailable [phone] Allergies No known active allergies Medications * [...] each Active Blood Glucose Monitoring Suppl (FreeStyle Perkins Lite) w/Device kit Use to test blood sugar 2 times daily 1 kit Active Tirzepatide (Mounjaro) 7.5 MG/0.5ML solution auto-injectorIn dications:Type 2 diabetes mellitus with stage 3b chronic kidney disease, without long-term current use of insulin ([facility]) Inject 7.5 mg under the skin 1 [...] disease, without long-term current use of insulin ([facility]) Chew 4 tablets (16 g) if needed for low blood sugar. 30 tablet 11 025 2025 Active pen needle 32G x 4 mm miscIndications :Type 2 diabetes mellitus with stage 3b chronic kidney disease, without long-term current use of insulin ([facility]) Use daily with insulin 100 each 025 [...] EDT): - lumbar spondylosis - following with [facility] pain management, plan for MBB. - Patient [...] (08/07/2024 9:08 AM EDT): - followed by [facility] GI - Work on achieving healthy weight and diet Assessment & Plan (04/05/2024 5:43 AM EST): - followed by [facility] GI - Work on achieving healthy weight and diet Assessment & Plan (05/08/2023 12:06 PM EST): - followed by [facility] GI - Work on achieving healthy weight and diet Knee pain 01/07/2023 Assessment & Plan (10/29/2024 12:10 PM EDT): - following with [facility] Ortho, last seen in July 2024 - [...] (08/12/2024 6:43 AM EDT): - following with [facility] Ortho - MRI on 08/26/24: [...] 6:33 AM EDT): - taking oxycodone under [employer] agreement since Mar 2024 - evaluated by inventory control analyst and given reassurance for no gynecological abnormality - upcoming appointment with GI and pain management - continue current behavioral health service Assessment & Plan (04/05/2024 5:40 AM EST): - Takes non-prescribed oxycodone to try and relieve the pain and help her sleep - Will start at low dose oxycodone only one at bedtime; discussed about its judicious use and the importance of attending [employer] appt Assessment & Plan (10/30/2022 4:06 PM EDT): - seen by urogynecologist, inventory control analyst, general surgeon, and GI - Will check [...] (08/12/2022 4:18 PM EDT): - seen by inventory control analyst, general surgeon, and GI - Will check [...] last seen in 2020 - seen by [facility] Uro[facility]N in September 2023 - check UA/ UCx - hold restarting oxybutynin due to current urinary retention - advised to reschedule appointment with urogyn Assessment & Plan (05/08/2023 12:09 PM EST): - Hx OAB, on oxybutynin, previously following with Dr. Peñaloza, last seen in 2020 - seen by [facility] UroGYN in August 2022, upcoming follow-up appt - check UA/ UCx - hold restarting oxybutynin due to current urinary retention Assessment & Plan (10/30/2022 4:09 PM EDT): - Hx OAB, on oxybutynin, previously following with Dr. Peñaloza, last seen in 2020 - seen by [facility] UroGYN in August 2022, upcoming [...] Plan (10/29/2024 12:14 PM EDT): -following with chain mender, last seen in May 2024 -avoid nephrotoxic drugs -no longer on metformin or ACEI/ARB -consider SGLT2i (relative contraindication due to LUTS) Assessment & Plan (08/12/2024 6:38 AM EDT): -following with chain mender, last seen in May 2024 -avoid nephrotoxic drugs -no longer on metformin or ACEI/ARB -consider SGLT2i Assessment & Plan (04/05/2024 5:47 AM EST): -following with chain mender, last seen in Nov 2023 -avoid nephrotoxic drugs -no longer on metformin -consider SGLT2i Assessment & Plan (05/08/2023 12:00 PM EST): -following with chain mender -avoid nephrotoxic drugs -no longer on metformin -clarify with GI whether patient needs to be on PPI Assessment & Plan (10/30/2022 4:11 PM EDT): -follow up with chain mender -avoid nephrotoxic drugs -adjust medication: metformin ER to 500 mg bid - lab review: 08/10/22 K 4.6; BUN 28; Scr 1.0 ; eGFR 56; Bicarb 28 Assessment & Plan (08/09/2022 11:50 AM EDT): -follow up with chain mender -avoid nephrotoxic drugs -adjust medication: metformin ER to 500 mg bid Assessment & Plan (06/03/2022 2:31 AM EST): -refer to chain mender -avoid nephrotoxic drugs -adjust medication: metformin ER [...] September 2024. S/p hysterectomy. Benign finding. -Started [employer] with oxycodone 5 mg at night since Mar 2024 -Last [employer] visit on 08/01/24, pill count suggested misuse. [...] & Plan (08/12/2024 6:31 AM EDT): -Started [employer] with oxycodone 5 mg at night since Mar 2024 -Last [employer] visit on 08/01/24, pill count suggested misuse. [...] to start oxycodone under close monitoring with [employer] program; patient verbalized understanding -Discussed about increased [...] (08/07/2024 9:07 AM EDT): - followed by [facility] GI - check whether patient needs to be on PPI or can be changed to H2-hao as recommended by chain mender Assessment & Plan (05/08/2023 12:02 PM EST): - followed by [facility] GI - check whether patient needs to be on PPI or can be changed to H2-hao as recommended by chain mender Generalized anxiety disorder with panic attacks 01/23/2015 Assessment & Plan (04/05/2024 5:54 AM EST): -tremor, patient is able to stop tremor voluntarily -check TSH Assessment & Plan (06/03/2022 2:23 AM EST): -tremor -check TSH Irritable bowel syndrome 01/23/2015 Assessment & Plan (08/07/2024 9:07 AM EDT): GI: [facility], last visit in Apr 2023 Current medication: Linzess 290 mg daily Normal EGD and colonoscopy in [facility] in Jan 2013. Colonoscopy in Apr 2023 by [facility] GI, hyperplastic polyp. Repeat in 5 years. Assessment & Plan (04/05/2024 5:45 AM EST): GI: [facility], last visit in Apr 2023 Current medication: Linzess 290 mg daily Normal EGD and colonoscopy in [facility] in Jan 2013. Colonoscopy in Apr 2023 by [facility] GI, hyperplastic polyp. Repeat in 5 years. Assessment & Plan (10/30/2022 4:20 PM EDT): GI: [facility], last visit in 08/04/22 Current medication: Linzess 290 mg daily Normal EGD and colonoscopy in [facility] in Jan 2013. Anticipating another colonoscopy soon Assessment & Plan (08/12/2022 4:19 PM EDT): GI: [facility], last visit in 08/04/22 Current medication: Linzess 290 mg daily Normal EGD and colonoscopy in [facility] in Jan 2013. Anticipating another colonoscopy soon Assessment & Plan (06/03/2022 2:15 AM EST): GI: [facility], last visit in 08/11/21 Current medication: Linzess 290 mg daily Normal EGD and colonoscopy in [facility] in Jan 2013. Pt has to reschedule colonoscopy with GI Specialist Encouraged medication compliance Pt seems to have changed GI; will confirm Recurrent major depression 01/23/2015 Assessment & Plan (10/29/2024 12:15 PM EDT): -[facility] provider: CHD -Continue current medications: clonazepam; fluoxetine; prazosin; clonidine; quetiapine Assessment & Plan (04/05/2024 5:54 AM EST): -S provider: CHD -Continue current medications: clonazepam; fluoxetine; prazosin; clonidine; quetiapine Assessment & Plan (05/08/2023 12:22 PM EST): -[facility] provider: CHD -Continue current medications: clonazepam; fluoxetine; prazosin; clonidine; quetiapine Assessment & Plan (10/30/2022 4:18 PM EDT): -S provider: CHD -Continue current medications: clonazepam; fluoxetine; prazosin; clonidine; quetiapine Assessment & Plan (06/03/2022 2:22 AM EST): -[facility] provider: CHD -Continue current medications: clonazepam; [...] with Denis Rodgers RPh through CD[facility] and chain mender -Work on lifestyle modifications, DASH diet and increase physical activity -continue amlodipine 5 mg daily -continue chlorthalidone 25 mg daily -continue Hydralazine 25 mg BID (chain mender seems to be unaware of medication, will [...] with Denis Rodgers RPh through [facility] and chain mender -Work on lifestyle modifications, DASH diet and increase physical activity -continue amlodipine 5 mg daily -continue chlorthalidone 25 mg daily -continue Hydralazine 25 mg BID (chain mender seems to be unaware of medication, will [...] with Denis Rodgers RPh through CD[employer] and chain mender -Work on lifestyle modifications, DASH diet and increase physical activity -continue amlodipine 5 mg daily -continue chlorthalidone 12.5 mg daily -continue Hydralazine 25 mg BID (chain mender seems to be unaware of medication, will [...] with Denis Rodgers RPh through [facility] and chain mender -Work on lifestyle modifications, DASH diet and increase physical activity -continue lisinopril 20 mg daily -continue chlorthalidone 12.5 mg daily -continue Hydralazine 25 mg BID (chain mender seems to be unaware of medication, will [...] UTI/vaginal candidiasis / UI. Last eye exam: [facility]. Nov 2023. Last foot exam: 05/02/23 [...] UTI/vaginal candidiasis / UI. Last eye exam: [facility]. Nov 2023. Last foot exam: 05/02/23 [...] Encounters Date Type Department Care Team Description 12/04/2024 2:30 PM EDT Clinical Support [facility] [address] [place], [place] [phone] Rhonda Valdez RN Chronic pain of both knees 12/04/[address] [phone] Kathryn Jarquin MD Pre Op Appt request 12/04/2024 Travel 11/28/2024 Refill [facility] [address] [place] [address] [phone] Kathryn Jarquin MD 11/15/[address] [phone] Kathryn Jarquin MD Upper back pain; Chronic pain of both knees; Chronic female pelvic pain; Chronic pain syndrome 11/12/[address] [phone] Kathryn Jarquin MD 11/09/2024 Telephone [facility] [address] [place] [address] Kathryn Jarquin MD chart prep 11/07/2024 Orders Only [facility] External Provider, [facility] 11/02/2024 Travel 11/02/2024 Patient Outreach [facility] [address] [place] [address] Kathryn Jarquin MD Pre-visit Planning (Pre-visit planning - LVM ) 10/30/2024 Travel 10/30/2024 Telephone [facility] [address] [place], [place] [phone] Rhonda Valdez RN [employer] 10/29/2024 9:00 AM EDT Office Visit [facility] [address] [place] [address] Kathryn Jarquin MD Hypertension, unspecified type (Primary [...] whether sciatica present 10/29/2024 Travel 10/26/2024 Telephone [facility] [address] [place] [address] Kathryn Jarquin MD Chart Prep 10/23/2024 10:00 AM EDT Office Visit [facility] OPTOMETRY [address] [place] [address] Art, Nadine, OD Type 2 diabetes mellitus with retinopathy of both eyes, with long-term current use of insulin, macular edema presence unspecified, unspecified retinopathy severity (CMS/HCC) (Primary Dx) 10/23/2024 Travel 10/19/2024 Telephone [facility] [address] [place] [address] Kathryn Jarquin MD FYI 10/16/2024 Patient Outreach [facility] [address] [place] [address] Kathryn Jarquin MD Transition Of Care (Tcm) (HDF scheduled. ) 10/03/2024 Orders Only GENERIC EXTERNAL DATA DEPARTMENT Provider, Generic External Data 10/02/2024 Orders Only GENERIC EXTERNAL DATA DEPARTMENT Provider, Generic External Data 10/01/2024 Results Follow-Up [address] [address] Kathryn Jarquin MD Glucose, Whole Blood, Glucose, Whole Blood 10/01/2024 Orders Only GENERIC EXTERNAL DATA DEPARTMENT Provider, Generic External Data 09/30/2024 Orders Only GENERIC EXTERNAL DATA DEPARTMENT Provider, Generic External Data 09/29/2024 Orders Only GENERIC EXTERNAL DATA DEPARTMENT Provider, Generic External Data 09/28/2024 Orders Only [facility] External Provider, [facility] 09/24/2024 Refill [facility] [address] [place] [address] Rhonda Valdez, RN Upper back pain; Chronic pain of both knees; Chronic female pelvic pain; Chronic pain syndrome 09/24/2024 Telephone [facility] [address] [place] [phone] Kathryn Jarquin MD Nurse Triage 09/24/[address] [phone] Kathryn Jarquin MD Med Refill 09/19/[address] [address] Kathryn Jarquin MD Hypomagnesemia 09/18/2024 Telephone [facility] [address] [place] [phone] Kathryn Jarquin MD Villanueva recall 09/07/2024 Travel 09/07/2024 Telephone [facility] [address] [place] [address] Rhonda Valdez, DELFINA 09/06/2024 Telephone [facility] [address] [place] [phone] Kathryn Jarquin MD Nurse Triage 09/05/2024 2:15 PM EDT Clinical Support [facility] [address] [place] [address] Rhonda Valdez, turn down man pain of both knees 09/05/2024 Travel from Last 3 Months Immunizations Immunization [...] Description 12/10/2024 3:00 PM EDT Medication Management [facility] [address] [place] [address] Denis Rodgers, PharmD [address] [place] [address] 12/19/2024 2:00 PM EDT Office Visit [facility] [address] [place] [address] Dara Hayes MD [address] [place] [address] 02/05/2025 3:00 PM EST Clinical Support [facility] [address] [place] [address] Rhonda Valdez, RN [address] [place] [address] 02/22/2025 1:45 PM EST Office Visit [facility] OPTOMETRY [address] [place] [address] Francesca Martinez, OD [address] [place] [address] Health Maintenance Due Date Last Done Comments CT Colonography 1955 FIT DNA/Cologuard 1955 FIT 1955 FOBT 1955 Sigmoidoscopy 1955 RSV Patients and Patients Aged 60 years or older (1 - Risk 60-74 years 1-dose series) 2016 Zoster Vaccines (2 of 2) 03/04/2023 01/07/2023 Depression Monitoring 09/27/2024 03/29/2024, 024 Eye Exam 11/17/2024 11/18/2023 Influenza Vaccine (#1) 2024 4, 03/19/2024, 01/07/2023, Additional history exists Diabetes: Hemoglobin [...] 025 4:06 PM EDT) No Denis Rodgers, NamitaD Procedures Procedure Name Priority Date/Time Associated Diagnosis Comments POCT FLORENCIA-14 URINE DRUG SCREEN Routine 12/04/2024 2:31 PM EDT Chronic pain of both knees BI MAMMOGRAM SCREENING TOMOSYNTHESIS BILATERAL Routine 11/07/2024 11:36 AM EDT POCT GLYCOSYLATED HEMOGLOBIN (HGB A1C) Routine 11/03/2024 11:35 AM EDT Type 2 diabetes mellitus with stage 3b chronic kidney disease, without long-term current use of insulin ([facility]) POCT GLUCOSE Routine 10/29/2024 9:03 AM EDT Type 2 diabetes mellitus with stage 3b chronic kidney disease, without long-term current use of insulin ([facility]) FUNDUS PHOTOS - OU - BOTH EYES Routine 10/23/2024 10:00 AM EDT Type 2 diabetes mellitus with retinopathy of both eyes, with long-term current use of insulin, macular edema presence unspecified, unspecified retinopathy severity ([facility]) GLUCOSE, WHOLE BLOOD Routine 10/03/2024 7:56 AM [...] disease, without long-term current use of insulin ([facility]) DIABETES EYE EXAM Routine 11/18/2023 COLONOSCOPY Routine 04/15/2023 ZZZ HISTORICAL HEPATITIS C ANTIBODY RFLX Routine 04/18/2019 8:30 AM EST from Last 3 Months or Most Recently Relevant to Health Maintenance Results * (ABNORMAL) POCT FLORENCIA-14 Urine Drug Screen (12/04/2024 2:31 PM EDT) Only the most recent of2 resultswithin the time period is included. THC Negative Negative Cocaine Screen, Urine Negative [...] Unknown 12/04/2024 2:31 PM EDT Narrative Rhonda Valdez, RN - 12/04/2024 2:31 PM EDT Internal Pass Control Lot# [id number] Exp: 02-01-26 Kathryn Jarquin MD POINT OF CARE TEST ENTER/EDIT OR DERABLES Final Result * BI Mammogram Screening Tomosynthesis Bilateral (11/07/2024 11:36 AM EDT) Anatomical Region Laterality Modality Breast Bilateral Mammography 11/07/2024 11:3 6 AM EDT Narrative 11/17/2024 6:20 PM EDT [address] [place] [address] Mammography Report Signed Patient: Wen Moran MR#: [id number] : 1955 Acct:[id number] Age/Sex: 69 / F ADM Date: 11/07/24 Loc: [facility] Attending Dr: Kathryn Jarquin MD Ordering Physician: Jaylen Cotton MD Results: 1Negativ e Date of Service: 11/07/24 Follow Up: 1 Year From [facility] Mammogram Procedure(s): MM tomosynthesis screening BI Accession Number(s): [id number] cc: Kathryn Jarquin MD; Jaylen Cotton MD [...] Fields MD Signed By: <Electronically signed by eNal Fields MD in OV> 11/17/24 1817 DD/ 1136 TD/TT: 11/07/24 1150 Sn[address] Bar Cook: Procedure Note Donotuseinterpreter, Image - 11/17/[facility] [address] [place] [address] Mammography Report Signed Patient: Devin Moran#: [id number] : 7Acct:[id number] Age/Sex: 69 / FADM Date: 11/07/24 Loc: .MAMMO Attending Dr: Kathryn Jarquin MD Ordering Physician: Jaylen Cotton MDResults: 1Negativ e Date of Service: 11/07/24Follow Up: 1 Year From [facility] Mammogram Procedure(s): MM tomosynthesis screening BI Accession Number(s): [id number] cc: Kathryn Jarquin MD; Jaylen Cotton MD [...] 11/17/24 1817 DD/ 1136 TD/TT: 11/07/24 1150 Sn[address] Bar Cook: [facility] External Provider IMG BI PROCEDURES Edited Result - Final * (ABNORMAL) POCT glycosylated hemoglobin (Hgb A1c) (11/03/2024 11:35 AM EDT) Hemoglobin A1C 9.4(A) 4.0 - 5.7 % QC Media Lot # [id number] Lot# Expiration Date 62 Blood Capillary blood specimen / Unknown 11/03/2024 11:35 AM EDT Kathryn Jarquin MD POINT OF CARE TEST ENTER/EDIT OR DERABLES Final Result * (ABNORMAL) POCT glucose manually resulted (10/29/2024 9:03 AM EDT) Glucose Blood, POC 246(A) 60 - 200 mg/dL QC Media Lot # [id number] Lot# Expiration Date 512,295 Blood Capillary blood specimen / Unknown 10/29/2024 [...] exam to better assess her ocular health. us Nadine Cordova OD OPHTH PHOTOGRAPHY Final Resul t * (ABNORMAL) Glucose, Whole Blood (10/03/2024 7:56 AM EDT) Only the most recent of15 resultswithin the time period is included. Glucose, Whole Blood 165(H) 60 - 115 mg/dL [facility] Comment:METER #: [id number] 10/03/2024 7:56 AM EDT 10/03/2024 8:01 AM EDT us Generic External Data Provider LAB BLOOD ORDERAB LES Final Result [facility] [address] [place] [phone] * CT Pelvis w/o Contrast (09/28/2024 12:54 PM EDT) Anatomical Region Laterality Modality Body, Pelvis Computed Tomogra phy 09/28/2024 12:5 4 PM EDT Narrative 09/28/2024 2:22 PM EDT [address] [address] [address] Scan Report Signed Patient: Wen Moran MR#: [id number] : 1955 Acct:[id number] Age/Sex: 69 / F ADM Date: 09/28/24 Loc: HO.ED Attending Dr: Ordering Physician: Lauren Persaud NP Date of Service: 09/28/24 Procedure(s): CT pelvis wo IV con Accession Number(s): [id number] cc: Kathryn Jarquin MD; Lauren Persaud NP Report Number: [id number]: Total DLP = 488.00 mGy-cm EXAMINATION: CT [...] 09/28/24 1419 DD/ 1254 TD/TT: 09/28/24 1405 Snack Bar Cook: Procedure Note Donotuseinterpreter, Image - 09/28/[address] [address] [address] Scan Report Signed Patient: Devin Moran#: [id number] : 1955cct:[id number] Age/Sex: 69 / FADM Date: 09/28/24 Loc: HO.ED Attending Dr: Ordering Physician: Lauren Persaud NP Date of Service: 09/28/24 Procedure(s): CT pelvis wo IV con Accession Number(s): [id number] cc: Kathryn Jarquin MD; Lauren Persaud NP Report Number: [id number]: Total DLP = 488.00 mGy-cm EXAMINATION: CT [...] 09/28/24 1419 DD/ 1254 TD/TT: 09/28/24 1405 Snack Bar Cook: [facility] External Provider IMG CT PROCEDURES Final Result * (ABNORMAL) Lipid Panel with Reflex to Direct LDL (03/29/2024 11:49 AM EST) Triglycerides 232(H) <150 mg/dL [facility] Comment:Desirable Triglyceri de: less than 150 mg/dLBorderline High Triglyceride 150-199 mg/dLHigh Triglyceride: 200-499 mg/dLVery High Triglyceride: greater than or equal to 5OO mg/dL Cholesterol 253(H) <200 mg/dL [facility] Comment:Desirable Cholestero l: less than 200 mg/dLBorderline High Cholesterol: 200-239 mg/dLHigh Cholesterol: greater than 239 mg/dL LDL Cholesterol Calculated 148(H) <100 mg/dL [facility] Comment:Desirable LDL: less than 100 mg/dLNear Optimal/Above Optimal LDL: 110- 129 mg/dLBorderline High LDL: 130-159 mg/dLHigh LDL: 160-189 mg/dLVery High LDL: greater than or equal to 190 mg/dL HDL Cholesterol 59 >40 mg/dL [facility] Comment:Desirable HDL: great er than 40 mg/dL Note: This HDL assay may give artificially low results in patients with liver disease. Blood 03/29/2024 11:4 9 AM EST 03/29/2024 1:10 PM EST Kathryn Jarquin MD LAB BLOOD ORDERABLES Final Resul t [facility] [address] [place] [address] [phone] * Diabetes Eye Exam (11/18/2023) Eye Exam Normal Normal 11/18/2023 Historical Provider HEALTH MAINTENANCE Final Result * Colonoscopy (04/15/2023) Colonoscopy Normal Normal Narrative Chayo Tobin - 04/15/2023 Recommended 5 year follow up see external hospital admission note on 04/15/2023 Historical Provider HEALTH MAINTENANCE Final Result * HEPATITIS C ANTIBODY RFLX (04/18/2019 8:30 AM EST) HEPATITIS C ANTIBODY NONREACTIVE NONREACTIVE [facility] Comment: Antibodies to HCV not detected; does not exclude early acute HCV infection. 04/18/2019 8:30 AM EST Kathryn Jarquin MD HISTORICAL/NON ORDERABLE LABS Fi nal Result [facility] [address] [place] [address], from Last 3 Months or Most Recently Relevant to Health Maintenance Insurance [facility] [employer] OPT[employer] (O D-SNP) [place] [id number] [employer] Care Teams Security Systems Installer Relationship Specialty Start Date End Date Kathryn Jarquin MD [address] [place] [address] PCP - General Family Medicine 04/04/18 Denis Rodgers, PharmD [address] [place] [phone] Pharmacist Internal Medicine 10/22/22
--- OUTSIDE RECORDS SUMMARY | 2024-12-05 07:02 | XMS_ITS | Encounter Summary ---
Author Organization [employer] Address [address] 7t [place] [address] Care Team Providers Care Infantry Weapons Crewmember Name Role Phone Kathryn Jarquin MD Primary Care Provider [phone] Denis Rodgers PharmD Unavailable [phone] Encounter Details Date Type Department Care Team (Latest Contact Info) Description 12/04/2024 Travel Social History Tobacco Use Types Packs/Day [...] Description 12/10/2024 3:00 PM EDT Medication Management [facility] MED[facility]INE 230 [place] [address] Denis Rodgers, PharmD 230 [place] [address] 12/19/2024 2:00 PM EDT Office Visit [facility] [address] [place] [address] Dara Hayes MD 230 [place] [address] 02/05/2025 3:00 PM EST Clinical Support [facility] 505 [place] [address] Rhonda Valdez, DELFINA 505 [place] [address] 02/22/2025 1:45 PM EST Office Visit [facility] OPTOMETRY 267 [place] [address] Francesca Martinez, OD 267 [place] [address] documented as of this encounter Goals Goal [...] documented as of this encounter Care Teams Infantry Weapons Crewmember Relationship Specialty Start Date End Date Kathryn Jarquin MD 230 [place] [address] PCP - General Family Medicine 04/04/18 Denis Rodgers, NamitaD 230 [place] [address] Pharmacist Internal Medicine 10/22/22 documented as of this encounter
--- OUTSIDE RECORDS SUMMARY | 2024-12-05 07:02 | XMS_ITS | Clinical Summary ---
Author Organization [facility] Address [address] [email or web address] [address] [place] [address] Phone Care Team Providers Care Senior Sql Database Developer Name Role Phone Kathryn Jarquin MD Primary Care Provider [phone] Allergies No known active allergies Active Problems [...] Last Assessment & Plan: -follow up with ski lift mechanic -avoid nephrotoxic drugs -adjust medication: metformin ER [...] patient's age to complete this topic Insurance [facility] One Care Dual SNP ([id number]) [place] [address] Care Teams Senior Sql Database Developer Relationship Specialty Start Date End Date Kathryn Jaruqin MD [address] [place] [address] PCP - General Family Medicine 08/31/23
--- OUTSIDE RECORDS SUMMARY | 2024-12-05 07:02 | XMS_ITS | Encounter Summary ---
Author Organization [employer] Address [address] 7t [place] [address] Care Team Providers Care Record Clerk Salesperson Name Role Phone Kathryn Jarquin MD Primary Care Provider [phone] Denis Rodgers PharmD Unavailable [phone] Encounter Details Date Type Department Care Team (Late st Contact Info) Description 03/26/2024 Abstract [facility] MEDICINE 230 [place] [address] Mya Garvey MA Social History Tobacco Use [...] Assessment Author Several days 03/29/2024 10:26 AM May Choudhary MA * Feeling bad about yourself [...] Description 12/10/2024 3:00 PM EDT Medication Management [facility] MEDICINE [address] [place] [address] Denis Rodgers, PharmD 230 [place] [address] 12/19/2024 2:00 PM EDT Office Visit [facility] MEDICINE [address] [place] [address] Dara Hayes MD 230 [place] [address] 02/05/2025 3:00 PM EST Clinical Support [facility] MED [facility] PEDS 505 [place] [address] Rhonda Valdez, DELFINA 505 [place] [address] 02/22/2025 1:45 PM EST Office Visit [facility] OPTOMETRY [address] [place] [address] Francesca Martinez OD 267 [place] [address] documented as of this encounter Goals Goal [...] on filedocumented in this encounter Care Teams Record Clerk Salesperson Relationship Specialty Start Date End Date Kathryn Jarquin MD 230 [place] [address] PCP - General Family Medicine 04/04/18 Denis Rodgers, PharmD 230 [place] [address] Pharmacist Internal Medicine 10/22/22 documented as of this encounter
--- OUTSIDE RECORDS SUMMARY | 2024-12-05 07:02 | XMS_ITS | Encounter Summary ---
Author Organization [employer] Address [address] [facility] 7t [place] [address] Care Team Providers Care Ski Maker Name Role Phone Kathryn Jarquin MD Primary Care Provider [phone] Denis Rodgers PharmD Unavailable [phone] Reason for Visit * Reason Onset Date Comments Nurse Triage 09/24/2024 Encounter Details Date Type Department Care Team ([facility] st Contact Info) Description 09/24/2024 Telephone [facility] MEDICINE 230 [place] [address] Kathryn Jarquin MD 230 [place], [place] [phone] Nurse Triage Social History Tobacco Use Types [...] RN - 09/24/2024 2:53 PM EDT No foreign language interpreter needed as this scientific technical writer speaks British. Call returned to Wen Moran to triage below at [phone]. Reports having chronic pain that is using Oxycodone for. Pt was looking for status of Rx. Advised was queued to FEED ELEVATOR WORKER nurse for MASSPAT review and then to [...] Reason: Abdominal pain Please contact pt at [phone]. (British Speaker) documented in this encounter Plan of Treatment Upcoming Encounters Date Type Department Care Team ([facility] st Contact Info) Description 12/10/2024 3:00 PM EDT Medication Management [facility] MEDICINE 230 [place] [address] Denis Rodgers, PharmD 230 [place] [address] 12/19/2024 2:00 PM EDT Office Visit [facility] MEDICINE 230 [place] [address] Dara Hayes MD 230 [place] [address] 02/05/2025 3:00 PM EST Clinical Support [facility] CHC MED & PEDS 505 [place], [place] [phone] Rhonda Valdez, DELFINA 505 [place] [address] 02/22/2025 1:45 PM EST Office Visit [facility] OPTOMETRY 267 [place] [address] Francesca Martinez, OD 267 [place] [address] documented as of this encounter Goals Goal [...] documented as of this encounter Care Teams Ski Maker Relationship Specialty Start Date End Date Kathryn Jarquin MD [address] [place] [address] PCP - General Family Medicine 04/04/18 Denis Rodgers, PharmD 230 [place] [address] Pharmacist Internal Medicine 10/22/22 documented as of this encounter
--- OUTSIDE RECORDS SUMMARY | 2024-12-05 07:02 | XMS_ITS | Encounter Summary ---
Author Organization [employer] Address [address] [facility] 7t [place] [address] Care Team Providers Care Lead Coater Name Role Phone Kathryn Jarquin MD Primary Care Provider [phone] Denis Rodgers PharmD Unavailable [phone] Reason for Visit * Reason Onset Date Comments Med Refill 09/24/2024 Encounter Details Date Type Department Care Team (Late st Contact Info) Description 09/24/2024 Telephone [facility] MEDICINE 230 [place] [address] Kathryn Jarquin MD 230 [place], [place] [phone] Med Refill Social History Tobacco Use Types [...] immediate release tablet To be sent to: [facility] - [place], [place] - [address] [place] [address] documented in this encounter Plan of Treatment Upcoming Encounters Date Type Department Care Team ([facility] st Contact Info) Description 12/10/2024 3:00 PM EDT Medication Management [facility] MEDICINE [address] [place] [address] Denis Rodgers, PharmD 230 [place] [address] 12/19/2024 2:00 PM EDT Office Visit [facility] MEDICINE [address] [place] [address] Dara Hayes MD 230 [place] [address] 02/05/2025 3:00 PM EST Clinical Support [facility] CHC MED & PEDS 505 [place] [address] Rhonda Valdez, DELFINA 505 [place] [address] 02/22/2025 1:45 PM EST Office Visit [facility] OPTOMETRY [address] [place], [place] [phone] Briannasun Francesca, OD [address] [place] [address] documented as of this encounter Goals Goal [...] documented as of this encounter Care Teams Lead Coater Relationship Specialty Start Date End Date Kathryn Jarquin MD 230 [place] [address] PCP - General Family Medicine 04/04/18 Denis Rodgers, PharmD 230 [place], [place] [phone] Pharmacist Internal Medicine 10/22/22 documented as of this encounter
--- OUTSIDE RECORDS SUMMARY | 2024-12-05 07:02 | XMS_ITS | Encounter Summary ---
Author Organization [employer] Address [address] [facility] 7t [place] [address] Care Team Providers Care Special Needs Nanny Name Role Phone Kathryn Jarquin MD Primary Care Provider [phone] Denis Rodgers PharmD Unavailable [phone] Encounter Details Date Type Department Care Team (Late st Contact Info) Description 01/14/2023 Orders Only [facility] MEDICINE 230 [place] [address] Kathryn Jarquin MD 230 [place] [address] Stage 3b chronic kidney disease (CMS/HCC) (Primary [...] Description 12/10/2024 3:00 PM EDT Medication Management [facility] MEDICINE [address] [place] [address] Denis Rodgers, PharmD 230 [place] [address] 12/19/2024 2:00 PM EDT Office Visit [facility] MEDICINE [address] [place] [address] Dara Hayes MD 230 [place] [address] 02/05/2025 3:00 PM EST Clinical Support [facility] CHC MED & PEDS 505 [place] [address] Rhonda Valdez, RN 505 [place] [address] 02/22/2025 1:45 PM EST Office Visit [facility] OPTOMETRY 267 [place] [address] Francesca Martinez, OD 267 [place] [address] Scheduled Orders Name Type Priority Associated Diagnoses [...] Diagnoses Diagnosis Stage 3b chronic kidney disease ([facility])- Primary Essential hypertension Unspecified essential hypertension Type 2 diabetes mellitus with hyperglycemia, without long-term current use of insulin ([facility]) documented in this encounter Care Teams Special Needs Nanny Relationship Specialty Start Date End Date Kathryn Jarquin MD [address] [place] [address] PCP - General Family Medicine 04/04/18 Denis Rodgers, PharmD [address] [place] [address] Pharmacist Internal Medicine 10/22/22 documented as of this encounter
--- OUTSIDE RECORDS SUMMARY | 2024-12-05 07:02 | XMS_ITS | Encounter Summary ---
Author Organization [employer] Address [address] [facility] 7t [place] [address] Care Team Providers Care Adaptive Physical Education Specialist Name Role Phone Kathryn Jarquin MD Primary Care Provider [phone] Denis Rodgers PharmD Unavailable [phone] Reason for Visit * Reason Onset Date Comments Pre Op Appt request 12/04/2024 Encounter Details Date Type Department Care Team ([facility] st Contact Info) Description 12/04/2024 Telephone [facility] MEDICINE 230 [place] [address] Kathryn Jarquin MD 230 [place] [address] Pre Op Appt request Social History Tobacco Use Types Packs/Day Years [...] encounter Miscellaneous Notes * Telephone Encounter - Sharon Pack RN - 12/04/2024 2:13 PM EDT Pre-Op Date of surgery: 01/04/2025 Surgical procedure being done: right knee arthroscopy Type of anesthesia: General Labs needed: CMP, CBC w/ diff, A1C EKG: Yes Surgeon's name: Dr Watkins Last office note from surgeon requested: Yes, available in chart under Encounters dated 12/04/24 Surgeon fax # to send clearance: [phone] Called pt, reached another person who said pt is at appt at [facility] now. Advised them to tell her to call [facility] back. Spoke with DELFINA Ellis (was with pt at visit) who confirmed pt can do pre-op appt 12/19/[address] Hayes. Faxed pre-op date/time to [phone], confirmation received. documented in this encounter Plan of Treatment Upcoming Encounters Date Type Department Care Team (Late st Contact Info) Description 12/10/2024 3:00 PM EDT Medication Management [facility] MEDICINE 230 [place] [address] Denis Rodgers, PharmD 230 [place], [place] [phone] 12/19/2024 2:00 PM EDT Office Visit [facility] MEDICINE 230 [place] [address] Dara Hayes MD 230 [place] [address] 02/05/2025 3:00 PM EST Clinical Support [facility] CHC MED & PEDS 505 [place] [address] Rhonda Valdez, RN 505 [place] [address] 02/22/2025 1:45 PM EST Office Visit [facility] OPTOMETRY 267 [place] [address] Francesca Martinez, OD 267 [place] [address] documented as of this encounter Goals Goal [...] documented as of this encounter Care Teams Adaptive Physical Education Specialist Relationship Specialty Start Date End Date Kathryn Jarquin MD [address] [place] [address] PCP - General Family Medicine 04/04/18 Denis Rodgers, PharmD [address] [place] [phone] Pharmacist Internal Medicine 10/22/22 documented as of this encounter
--- OUTSIDE RECORDS SUMMARY | 2024-12-05 07:02 | XMS_ITS | Encounter Summary ---
Author Organization [employer] Address 75 [facility] 7t [place] [address] Care Team Providers Care Cancer Program Coordinator Name Role Phone Kathryn Jarquin MD Primary Care Provider [phone] Denis Rodgers PharmD Unavailable [phone] Reason for Visit * Reason Comments Med Refill Encounter Details Date Type Department Care Team ([facility] st Contact Info) Description 05/29/2024 Refill [facility] MEDICINE 230 [place], [place] [phone] Kathryn Jarquin MD 230 [place] [address] Upper back pain; Chronic pain of both [...] Description 12/10/2024 3:00 PM EDT Medication Management [facility] MEDICINE [address] [place] [address] Denis Rodgers, PharmD 230 [place] [address] 12/19/2024 2:00 PM EDT Office Visit [facility] MEDICINE [address] [place] [address] Dara Hayes MD 230 [place] [address] 02/05/2025 3:00 PM EST Clinical Support [facility] CHC MED & PEDS 505 [place] [address] Rhonda Valdez, RN 505 [place] [address] 02/22/2025 1:45 PM EST Office Visit [facility] OPTOMETRY 267 [place] [address] Francesca Martinez, OD 267 [place] [address] documented as of this encounter Goals Goal [...] documented as of this encounter Care Teams Cancer Program Coordinator Relationship Specialty Start Date End Date Kathryn Jarquin MD 230 [place] [address] PCP - General Family Medicine 04/04/18 Denis Rodgers, PharmD [address] [place] [address] Pharmacist Internal Medicine 10/22/22 documented as of this encounter
--- OUTSIDE RECORDS SUMMARY | 2024-12-05 07:02 | XMS_ITS | Encounter Summary ---
Author Organization [employer] Address 75 [facility] 7t [place] [address] Care Team Providers Care Manager Scientific Name Role Phone Kathryn Jarquin MD Primary Care Provider [phone] Denis Rodgers PharmD Unavailable [phone] Encounter Details Date Type Department Care Team ([facility] st Contact Info) Description 04/02/2024 Orders Only [facility] MEDICINE 230 [place] [address] Kathryn Jarquin MD 230 [place] [address] Social History Tobacco Use Types Packs/Day Years [...] Description 12/10/2024 3:00 PM EDT Medication Management [facility] MEDICINE [address] [place] [address] Denis Rodgers, PharmD 230 [place] [address] 12/19/2024 2:00 PM EDT Office Visit [facility] MEDICINE [address] [place] [address] Dara Hayes MD 230 [place] [address] 02/05/2025 3:00 PM EST Clinical Support [facility] CHC MED & PEDS 505 [place] [address] Rhonda Valdez, DELFINA 505 [place] [address] 02/22/2025 1:45 PM EST Office Visit [facility] OPTOMETRY 267 [place] [address] Francesca Martinez OD 267 [place] [address] documented as of this encounter Goals Goal Patient Goal Type Associated Problems Recent Progress Patient-Stated? Author Blood Pressure < 140/90 Blood Pressure 134/74( 025 4:06 PM EDT) No Rodgers, Denis, PharmD documented as of this encounter Visit Diagnoses Not on filedocumented in this encounter Additional Health Concerns Assessment Noted Time PHQ-9 Depression Total Score: 12 024 10:26 AM EST documented as of this encounter Care Teams Manager Scientific Relationship Specialty Start Date End Date Kathryn Jarquin MD 230 [place] [address] PCP - General Family Medicine 04/04/18 Denis Rodgers, PharmD 230 [place] [address] Pharmacist Internal Medicine 10/22/22 documented as of this encounter
--- OUTSIDE RECORDS SUMMARY | 2024-12-05 07:02 | XMS_ITS | Encounter Summary ---
Author Organization [facility], Address [address] [place] [address] Phone Care Team Providers Care Collar Turner Name Role Phone Kathryn Jarquin MD Primary Care Provider [phone] Encounter Details Date Type Department Care Team (Late st Contact Info) Description 09/07/2023 Documentation Only [facility], [address] [place] [address] Doug Luna [address] [place] [address] Social History Tobacco Use Types [...] on filedocumented in this encounter Care Teams Collar Turner Relationship Specialty Start Date End Date Kathryn Jarquin MD [address] [place] [address] PCP - General Family Medicine 08/31/23 documented as of this encounter
--- OUTSIDE RECORDS SUMMARY | 2024-12-05 07:02 | XMS_ITS | Encounter Summary ---
Author Organization [employer] Address 75 [facility] 7t [place] [address] Care Team Providers Care Superintendent Oil Well Services Name Role Phone Kathryn Jarquin MD Primary Care Provider [phone] Denis Rodgers PharmD Unavailable [phone] Reason for Visit * Reason Comments Med Refill Encounter Details Date Type Department Care Team ([facility] st Contact Info) Description 09/19/2024 Refill [facility] MEDICINE 230 [place], [place] [phone] Kathryn Jarquin MD 230 [place], [place] [phone] Hypomagnesemia Social History Tobacco Use Types Packs/Day [...] 3:00 PM EDT Medication Management [facility] MEDICINE [address] [place] [address] Denis Rodgers, PharmD 230 [place] [address] 12/19/2024 2:00 PM EDT Office Visit [facility] MEDICINE [address] [place] [address] Dara Hayes MD 230 [place] [address] 02/05/2025 3:00 PM EST Clinical Support [facility] MED & PEDS 505 [place] [address] Rhonda Valdez, DELFINA 505 [place] [address] 02/22/2025 1:45 PM EST Office Visit [facility] OPTOMETRY 267 [place] [address] Francesca Martinez, OD 267 [place] [address] documented as of this encounter Goals Goal [...] documented as of this encounter Care Teams Superintendent [employer] Relationship Specialty Start Date End Date Kathryn Jarquin MD 230 [place] [address] PCP - General Family Medicine 04/04/18 Denis Rodgers, PharmD 230 [place] [address] Pharmacist Internal Medicine 10/22/22 documented as of this encounter
--- OUTSIDE RECORDS SUMMARY | 2024-12-05 07:02 | XMS_ITS | Encounter Summary ---
Author Organization [employer] Address 75 [facility] 7t [place] [address] Care Team Providers Care Clinical Psychiatrist Name Role Phone Kathryn Jarquin MD Primary Care Provider [phone] Denis Rodgers PharmD Unavailable [phone] Encounter Details Date Type Department Care Team (Late st Contact Info) Description 01/14/2023 Orders Only [facility] MEDICINE 230 [place] [address] Kathryn aJrquin MD 230 [place] [address] Stage 3b chronic kidney disease (CMS/HCC) (Primary [...] Description 12/10/2024 3:00 PM EDT Medication Management [facility] MEDICINE [address] [place] [address] Denis Rodgers, PharmMirela 230 [place] [address] 12/19/2024 2:00 PM EDT Office Visit [facility] MEDICINE [address] [place] [address] Dara Hayes MD 230 [place] [address] 02/05/2025 3:00 PM EST Clinical Support [facility] CHC MED & PEDS 505 [place] [address] Rhonda Valdez, RN 505 [place] [address] 02/22/2025 1:45 PM EST Office Visit [facility] OPTOMETRY 267 [place] [address] Francesca Martinez, OD 267 [place] [address] documented as of this encounter Goals Goal Patient Goal Type Associated Problems Recent Progress Patient-Stated? Author Blood Pressure < 140/90 Blood Pressure 134/74( 025 4:06 PM EDT) No Denis Rodgers, PharmD documented as of this encounter Visit Diagnoses Diagnosis Stage 3b chronic kidney disease (CMS/HCC)- Primary Essential hypertension Unspecified essential hypertension Type 2 diabetes mellitus with hyperglycemia, without long-term current use of insulin ([facility]) documented in this encounter Care Teams Clinical Psychiatrist Relationship Specialty Start Date End Date Kathryn Jarquin MD 230 [place], [place] [phone] PCP - General Family Medicine 04/04/18 Denis Rodgers, Swapnil 230 [place] [address] Pharmacist Internal Medicine 10/22/22 documented as of this encounter
--- OUTSIDE RECORDS SUMMARY | 2024-12-05 07:02 | XMS_ITS | Encounter Summary ---
Author Organization [employer] Address [address] [facility] 7t [place] [address] Care Team Providers Care Terra Cotta Roofer Helper Name Role Phone Kathryn Jarquin MD Primary Care Provider [phone] Denis Rogders PharmD Unavailable [phone] Reason for Visit * Reason Onset Date Comments Med Refill 08/21/2024 Encounter Details Date Type Department Care Team (Late st Contact Info) Description 08/21/2024 Telephone [facility] MEDICINE 230 [place] [address] Kathryn Jarquin MD 230 [place], [place] [phone] Med Refill Social History Tobacco Use Types [...] immediate release tablet To be sent to: [facility] - [place], [place] - [address] [place] [address] documented in this encounter Plan of Treatment Upcoming Encounters Date Type Department Care Team ([facility] st Contact Info) Description 12/10/2024 3:00 PM EDT Medication Management [facility] MEDICINE [address] [place] [address] Denis Rodgers, PharmD 230 [place] [address] 12/19/2024 2:00 PM EDT Office Visit [facility] MEDICINE [address] [place] [address] Dara Hayes MD 230 [place] [address] 02/05/2025 3:00 PM EST Clinical Support [facility] CHC MED & PEDS 505 [place] [address] Rhonda Valdez, RN 505 [place] [address] 02/22/2025 1:45 PM EST Office Visit [facility] OPTOMETRY 267 [place] [address] rFancesca Martinez, OD 267 [place] [address] documented as of this encounter Goals Goal [...] documented as of this encounter Care Teams Terra Cotta Roofer Helper Relationship Specialty Start Date End Date Kathryn Jarquin MD 230 [place] [address] PCP - General Family Medicine 04/04/18 Denis Rodgers, PharmD 230 [place], [place] [phone] Pharmacist Internal Medicine 10/22/22 documented as of this encounter
--- OUTSIDE RECORDS SUMMARY | 2024-12-05 07:02 | XMS_ITS | Encounter Summary ---
Author Organization [employer] Address 75 [facility] 7t [place] [address] Care Team Providers Care Supervisor Evaporator Name Role Phone Kathryn Jarquin MD Primary Care Provider Denis Rodgers PharmD Unavailable [phone] Reason for Visit * Reason Onset Date Comments FYI 10/19/2024 Encounter Details Date Type Department Care Team ([facility] st Contact Info) Description 10/19/2024 Telephone [facility] MEDICINE [address] [place] [address] Kathryn Jarquin MD [address] [place], [place] [phone] FYI Social History Tobacco Use Types Packs/Day [...] 10:41 AM EDT Tc from Sandra with [facility] stating that the patient refused physical therapy and skillednursing services. Sandra reported that the patient is not interested in services at this time. Contact pt at [phone] documented in this encounter Plan of Treatment Upcoming Encounters Date Type Department Care Team (Late st Contact Info) Description 12/10/2024 3:00 PM EDT Medication Management [facility] MEDICINE [address] [place] [phone] Denis Rodgers, PharmD [address] [place] [address] 12/19/2024 2:00 PM EDT Office Visit [facility] MEDICINE [address] [place] [address] Dara Hayes MD [address] [place] [address] 02/05/2025 3:00 PM EST Clinical Support [facility] CHC MED & PEDS [address] [place] [address] Rhonda Valdez, RN [address] [place], [place] 02/22/2025 1:45 PM EST Office Visit [facility] OPTOMETRY [address] [place] [address] Francesca Martinez, OD [address] [place] [address] documented as of this encounter Goals Goal [...] documented as of this encounter Care Teams Supervisor Evaporator Relationship Specialty Start Date End Date Kathryn Jarquin MD [address] [place] [address] PCP - General Family Medicine 04/04/18 Denis Rodgers, PharmD [address] [place] [address] Pharmacist Internal Medicine 10/22/22 documented as of this encounter
--- OUTSIDE RECORDS SUMMARY | 2024-12-05 07:02 | XMS_ITS | Encounter Summary ---
Author Organization [employer] Address 75 [facility] 7t [place] [address] Care Team Providers Care Counseling Center Director Name Role Phone Kathryn Jarquin MD Primary Care Provider [phone] Denis Rodgers PharmD Unavailable [phone] Encounter Details Date Type Department Care Team ([facility] st Contact Info) Description 09/30/2023 Orders Only [facility] MEDICINE [address] [place], [place] [phone] Kathryn Jarquin MD [address] [place], [place] [phone] Social History Tobacco Use Types Packs/Day Years [...] Description 12/10/2024 3:00 PM EDT Medication Management [facility] MEDICINE [address] [place] [address] Denis Rodgers, PharmD [address] [place] [address] 12/19/2024 2:00 PM EDT Office Visit [facility] MEDICINE [address] [place] [address] Dara Hayes MD [address] [place] [address] 02/05/2025 3:00 PM EST Clinical Support [facility] CHC MED & PEDS [address] [place] [address] Rhonda Valdez, RN [address] [place] [address] 02/22/2025 1:45 PM EST Office Visit [facility] OPTOMETRY [address] [place] [address] TarFrancesca garsia, OD [address] [place] [address] documented as of this encounter Goals Goal Patient Goal Type Associated Problems Recent Progress Patient-Stated? Author Blood Pressure < 140/90 Blood Pressure 134/74( 025 4:06 PM EDT) No Denis Rodgers, PharmD documented as of this encounter Visit Diagnoses Not on filedocumented in this encounter Care Teams Counseling Center Director Relationship Specialty Start Date End Date Kathryn Jarquin MD [address] [place] [address] PCP - General Family Medicine 04/04/18 Denis Rodgers PharmD [address] [place] [address] Pharmacist Internal Medicine 10/22/22 documented as of this encounter
[2024-12-26 10:02] VITALS: BP 147/74; PULSE 75; RESP 16; O2SAT 95; BMI 32.2
--- NOTE | 2024-12-26 10:35 | HO.ANESPROP2 ---
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) (Acute) Hypertensive nephropathy (Acute) CKD (chronic kidney disease) stage 4, GFR 15-29 ml/min (Acute) Pre-op examination (Acute) Osteopenia (Acute) Menopause (Acute) Well woman exam (Acute) Tubular adenoma of colon (Acute) Diverticulitis of both large and small intestine with perforation without abscess or bleeding (Acute) Abdominal pain (Acute) Yesenia albicans infection (Acute) Pain, coccyx (Acute) Dysuria (Acute) Pelvic pain (Acute) Abdominal bloating (Acute) Patellofemoral arthritis of left knee (Acute) Knee pain (Acute) Biceps tendonitis on left (Acute) Abdominal cramping (Acute) Hypomagnesemia (Acute) GERD (gastroesophageal reflux disease) (Acute) Chronic idiopathic constipation (Acute) Diverticulitis (Acute) Suprapubic abdominal pain (Acute) WILLETT (nonalcoholic steatohepatitis) (Acute) Dysuria (Acute) HTN (hypertension) (Acute) Chronic kidney disease (Acute) KIRSTIE (stress urinary incontinence, female) (Acute) Urge incontinence (Acute) Past Medical History Medical History Hypothyroidism Anemia Right knee pain Asthma Back pain Arthritis Dysuria Chronic kidney disease Diabetes 1.5, managed as type 2 HTN (hypertension) KIRSTIE (stress urinary incontinence, female) Urge incontinence Chronic idiopathic constipation GERD (gastroesophageal reflux disease) Irritable bowel syndrome with constipation Family History Family History Father Family hx of prostate cancer Cancer Brother Cancer Mother HTN (hypertension) Maternal Aunt Skin cancer, Onset Age: 59 Family history of problems with anesthesia: No Surgical History Surgical History Hx of hernia repair H/O tubal ligation Hx of section H/O: hysterectomy History of esophagogastroduodenoscopy (EGD) Hx of colonoscopy (04/2023) History of Problems with Anesthesia: No Social History Social History Household Members: Family and None Housing: Apartment Alcohol intake: never Patient Tobacco Use Status: Never used Tobacco e-Cigarette/Vaping Use: Never Used Use of substances other than those prescribed or required for medical reasons: No Have you been hit, kicked, punched, or otherwise hurt by someone within the past year? If so, by whom?: No Are you DNR?: No Advance Directives: No Advance Directives Information Provided: Yes Advance Directives on File: No Poor oral hygiene: Yes (planning to have teeth removed for dentures) Current occupational status: [employer] Allergies Allergy/AdvReac Type Severity Reaction Status Date / Time No Known Allergies (NO KNOWN Allergy Unknown UNKNOWN Verified 12/04/24 08:41 ALLERGIES) Home Medications ?Medication ?Instructions ?Recorded ?Confirmed ?Last Taken ?Type aspirin 81 mg tablet,delayed 81 mg PO DAILY 06/10/20 12/25/24 Unknown History release (Adult Aspirin Regimen) chlorthalidone 50 mg tablet 25 mg PO DAILY 03/23/21 12/25/24 Unknown History fluoxetine 20 mg capsule 20 mg PO TID 03/23/21 12/26/24 Unknown History mirtazapine 45 mg tablet 45 mg PO BEDTIME 03/23/21 12/25/24 Unknown History cholecalciferol (vitamin D3) 25 25 mcg PO DAILY 08/04/22 12/25/24 Unknown History mcg (1,000 unit) capsule (Vitamin D3) levothyroxine 50 mcg tablet 50 mcg PO QAM 08/04/22 12/25/24 Unknown History prazosin 1 mg capsule 1 mg PO BEDTIME 08/04/22 12/25/24 Unknown History atorvastatin 80 mg tablet 80 mg PO BEDTIME 04/19/23 12/25/24 Unknown History clonidine HCl 0.1 mg tablet 0.1 mg PO BID PRN Panic Attack(S) 04/19/23 12/25/24 Unknown History glipizide 5 mg tablet 5 mg PO BID 04/19/23 12/25/24 Unknown History hydralazine 25 mg tablet 25 mg PO BID 04/25/23 12/25/24 Unknown History quetiapine 200 mg tablet,extended 200 mg PO BEDTIME 05/31/24 12/25/24 Unknown History release 24 hr docusate sodium 100 mg capsule 100 mg PO DAILY PRN Constipation 09/28/24 12/25/24 Unknown History (Colace) tirzepatide 5 mg/0.5 mL 5 mg subcut TU 10/02/24 12/25/24 Unknown History subcutaneous pen injector (Mounjaro) insulin degludec 100 unit/mL (3 10 unit subcut DAILY 12/25/24 12/25/24 Unknown History mL) subcutaneous pen (Tresiba FlexTouch U-100 insulin) lisinopril 40 mg tablet 40 mg PO DAILY 12/25/24 12/25/24 Unknown History albuterol sulfate 0.63 mg/3 mL 0.63 mg inhalation QID PRN 12/26/24 12/26/24 Unknown History solution for nebulization Shortness Of Breath Or Wheezing albuterol sulfate 90 mcg/actuation 2 puff inhalation Q4-6H PRN 12/26/24 12/26/24 Unknown History aerosol inhaler Shortness Of Breath Or Wheezing amlodipine 5 mg tablet 5 mg PO DAILY 12/26/24 12/26/24 Unknown History Exam Height,Weight and Vital Signs: Height 4 ft 10 in Weight 69.853 kg Last Vital Signs Pulse 75 12/26/24 10:02 Resp 16 12/26/24 10:02 BP 147/74 H 12/26/24 10:02 Pulse Ox 95 12/26/24 10:02 O2 Del Method Room Air 12/26/24 10:02 Pertinent Lab Results Pertinent Lab Results: Laboratory Tests 12/21/24 09:40 WBC 11.5 H Hgb 12.2 Hct 37.7 Plt Count 284 D Sodium 141 Potassium 3.7 Chloride 104 Carbon Dioxide 26 BUN 26 H Creatinine 1.54 H Narrative Narrative: EKG 12/2024 SR @ 71 I-A conduction delay Airway TM Dist: >3cm Neck ROM: Full Loose/Missing/Broken Teeth: Yes (No top teeth, front bottom teeth stable) Heart: RRR Lungs: CTAB Assessment and Plan Assessment Anesthesia Assessment: Anesthesia Plan Discussed and PAT Visit Final Anesthetic Review Family History of Problems with Anesthesia: No History of Problems with Anesthesia: No Documented by User: Eileen Guevara NP 01/02/25 14:02 HPI - Anesthesia Eval Consult details Narrative: 69yo F for Right Knee Arthroscopy,partial medial meniscectomy, 01/04/25 Medically optimized per PCP No recent illness - small amount phlegm, no cough - possible post nasal No CP/SOB GERD: ?meds Asthma: prn albuterol PMFSH Past Medical History Medical History Hypothyroidism Anemia Right knee pain Asthma Back pain Arthritis Dysuria Chronic kidney disease Diabetes 1.5, managed as type 2 HTN (hypertension) KIRSTIE (stress urinary incontinence, female) Urge incontinence Chronic idiopathic constipation GERD (gastroesophageal reflux disease) Irritable bowel syndrome with constipation Family History Family History Father Family hx of prostate cancer Cancer Brother Cancer Mother HTN (hypertension) Maternal Aunt Skin cancer, Onset Age: 59 Surgical History Surgical History Hx of hernia repair H/O tubal ligation Hx of section H/O: hysterectomy History of esophagogastroduodenoscopy (EGD) Hx of colonoscopy (04/2023) Social History Social History Household Members: Family and None Housing: Apartment Alcohol intake: never Patient Tobacco Use Status: Never used Tobacco e-Cigarette/Vaping Use: Never Used Use of substances other than those prescribed or required for medical reasons: No Have you been hit, kicked, punched, or otherwise hurt by someone within the past year? If so, by whom?: No Are you DNR?: No Advance Directives: No Advance Directives Information Provided: Yes Advance Directives on File: No Poor oral hygiene: Yes (planning to have teeth removed for dentures) Current occupational status: disabled Meds Allergies Allergy/AdvReac Type Severity Reaction Status Date / Time No Known Allergies (NO KNOWN Allergy Unknown UNKNOWN Verified 12/04/24 08:41 ALLERGIES) Home Medications ?Medication ?Instructions ?Recorded ?Confirmed ?Last Taken ?Type aspirin 81 mg tablet,delayed 81 mg PO DAILY 06/10/20 12/25/24 Unknown History release (Adult Aspirin Regimen) chlorthalidone 50 mg tablet 25 mg PO DAILY 03/23/21 12/25/24 Unknown History fluoxetine 20 mg capsule 20 mg PO TID 03/23/21 12/26/24 Unknown History mirtazapine 45 mg tablet 45 mg PO BEDTIME 03/23/21 12/25/24 Unknown History cholecalciferol (vitamin D3) 25 25 mcg PO DAILY 08/04/22 12/25/24 Unknown History mcg (1,000 unit) capsule (Vitamin D3) levothyroxine 50 mcg tablet 50 mcg PO QAM 08/04/22 12/25/24 Unknown History prazosin 1 mg capsule 1 mg PO BEDTIME 08/04/22 12/25/24 Unknown History atorvastatin 80 mg tablet 80 mg PO BEDTIME 04/19/23 12/25/24 Unknown History clonidine HCl 0.1 mg tablet 0.1 mg PO BID PRN Panic Attack(S) 04/19/23 12/25/24 Unknown History glipizide 5 mg tablet 5 mg PO BID 04/19/23 12/25/24 Unknown History hydralazine 25 mg tablet 25 mg PO BID 04/25/23 12/25/24 Unknown History quetiapine 200 mg tablet,extended 200 mg PO BEDTIME 05/31/24 12/25/24 Unknown History release 24 hr docusate sodium 100 mg capsule 100 mg PO DAILY PRN Constipation 09/28/24 12/25/24 Unknown History (Colace) tirzepatide 5 mg/0.5 mL 5 mg subcut TU 10/02/24 12/25/24 Unknown History subcutaneous pen injector (Mounjaro) insulin degludec 100 unit/mL (3 10 unit subcut DAILY 12/25/24 12/25/24 Unknown History mL) subcutaneous pen (Tresiba FlexTouch U-100 insulin) lisinopril 40 mg tablet 40 mg PO DAILY 12/25/24 12/25/24 Unknown History albuterol sulfate 0.63 mg/3 mL 0.63 mg inhalation QID PRN 12/26/24 12/26/24 Unknown History solution for nebulization Shortness Of Breath Or Wheezing albuterol sulfate 90 mcg/actuation 2 puff inhalation Q4-6H PRN 12/26/24 12/26/24 Unknown History aerosol inhaler Shortness Of Breath Or Wheezing amlodipine 5 mg tablet 5 mg PO DAILY 12/26/24 12/26/24 Unknown History Documented by User: Laureen Ferris MD 01/04/25 07:28 [facility] Past Medical History Medical History Hypothyroidism Anemia Right knee pain Asthma Back pain Arthritis Dysuria Chronic kidney disease Diabetes 1.5, managed as type 2 HTN (hypertension) KIRSTIE (stress urinary incontinence, female) Urge incontinence Chronic idiopathic constipation GERD (gastroesophageal reflux disease) Irritable bowel syndrome with constipation Family History Family History Father Family hx of prostate cancer Cancer Brother Cancer Mother HTN (hypertension) Maternal Aunt Skin cancer, Onset Age: 59 Surgical History Surgical History Hx of hernia repair H/O tubal ligation Hx of section H/O: hysterectomy History of esophagogastroduodenoscopy (EGD) Hx of colonoscopy (04/2023) Social History Social History Household Members: Family and None Housing: Apartment Alcohol intake: never Patient Tobacco Use Status: Never used Tobacco e-Cigarette/Vaping Use: Never Used Use of substances other than those prescribed or required for medical reasons: No Have you been hit, kicked, punched, or otherwise hurt by someone within the past year? If so, by whom?: No Are you DNR?: No Advance Directives: No Advance Directives Information Provided: Yes Advance Directives on File: No Poor oral hygiene: Yes (planning to have teeth removed for dentures) Current occupational status: [employer] Allergies Allergy/AdvReac Type Severity Reaction Status Date / Time No Known Allergies (NO KNOWN Allergy Unknown UNKNOWN Verified 12/04/24 08:41 ALLERGIES) Home Medications ?Medication ?Instructions ?Recorded ?Confirmed ?Last Taken ?Type aspirin 81 mg tablet,delayed 81 mg PO DAILY 06/10/20 12/25/24 Unknown History release (Adult Aspirin Regimen) chlorthalidone 50 mg tablet 25 mg PO DAILY 03/23/21 12/25/24 Unknown History fluoxetine 20 mg capsule 20 mg PO TID 03/23/21 12/26/24 Unknown History mirtazapine 45 mg tablet 45 mg PO BEDTIME 03/23/21 12/25/24 Unknown History cholecalciferol (vitamin D3) 25 25 mcg PO DAILY 08/04/22 12/25/24 Unknown History mcg (1,000 unit) capsule (Vitamin D3) levothyroxine 50 mcg tablet 50 mcg PO QAM 08/04/22 12/25/24 Unknown History prazosin 1 mg capsule 1 mg PO BEDTIME 08/04/22 12/25/24 Unknown History atorvastatin 80 mg tablet 80 mg PO BEDTIME 04/19/23 12/25/24 Unknown History clonidine HCl 0.1 mg tablet 0.1 mg PO BID PRN Panic Attack(S) 04/19/23 12/25/24 Unknown History glipizide 5 mg tablet 5 mg PO BID 04/19/23 12/25/24 Unknown History hydralazine 25 mg tablet 25 mg PO BID 04/25/23 12/25/24 Unknown History quetiapine 200 mg tablet,extended 200 mg PO BEDTIME 05/31/24 12/25/24 Unknown History release 24 hr docusate sodium 100 mg capsule 100 mg PO DAILY PRN Constipation 09/28/24 12/25/24 Unknown History (Colace) tirzepatide 5 mg/0.5 mL 5 mg subcut TU 10/02/24 12/25/24 Unknown History subcutaneous pen injector (Mounjaro) insulin degludec 100 unit/mL (3 10 unit subcut DAILY 12/25/24 12/25/24 Unknown History mL) subcutaneous pen (Tresiba FlexTouch U-100 insulin) lisinopril 40 mg tablet 40 mg PO DAILY 12/25/24 12/25/24 Unknown History albuterol sulfate 0.63 mg/3 mL 0.63 mg inhalation QID PRN 12/26/24 12/26/24 Unknown History solution for nebulization Shortness Of Breath Or Wheezing albuterol sulfate 90 mcg/actuation 2 puff inhalation Q4-6H PRN 12/26/24 12/26/24 Unknown History aerosol inhaler Shortness Of Breath Or Wheezing amlodipine 5 mg tablet 5 mg PO DAILY 12/26/24 12/26/24 Unknown History Assessment and Plan Assessment Anesthesia Assessment: Chart Reviewed Final Anesthetic Review NPO: Yes ASA Class: III Final Preanesthetic Review: No Changes in Pt Med Stat, Meds/Allgs Chart Reviewed, Consent Obtained/Reviewed and Anes Risks/Benef Reviewed Patient Risk: Intermediate Procedure Risk: Low Anesthetic Plan Anesthetic Plan: GA and Agree w/ Assess. and Plan Disposition: Standard PACU
[2025-01-04] VITALS (12 sets, daily range): BP systolic 107–155; BP diastolic 40–72; PULSE 56–90; RESP 12–16; TEMP 36.1–36.4; O2SAT 91–99
[2025-01-04] MEDS: Lactated Ringers 1,000 ML 100 ML IVCONT (07:03)
[2025-01-04 07:08] LABS: Glucose, Whole Blood 247 mg/dL (60-115)
--- NOTE | 2025-01-04 08:29 | PM.OP ---
Brief Operative Note Date of Service: 01/04/25 Pre-op diagnosis: Right knee medial meniscus tear, right knee degenerative joint disease Post-op diagnosis: same Procedure: Right knee arthroscopic partial medial meniscectomy, right knee arthroscopic chondroplasty of the undersurface of the patella as well as the medial femoral condyle Surgeon: Kailash Watkins MD Anesthesia: GLMA Was an Community Specialist used for this Procedure?: No Estimated blood loss (mL): 10 Pathology: none sent Condition: stable Disposition: PACU
--- NOTE | 2025-01-04 08:30 | P.OP_ITS ---
Operative Note Operative Note Date of Service: 01/04/25 Narrative: After the patient was identified as Wen Moran and her right knee was initialed by myself they were brought to the operating room where general anesthesia was induced by the anesthesiologist in routine fashion. The patient was given 2 g of IV Ancef for infection prophylaxis. A formal time-out was completed. The patient's right lower extremity was prepped and draped in sterile fashion. Marcaine with epinephrine was injected into the planned incision sites as well as their right knee joint. A # 11 scalpel blade was used to make an anterolateral portal 1 cm proximal to the joint line and 1 cm lateral to the patellar tendon. Blunt trocar technique was used into the suprapatellar pouch with the knee in extension. Diagnostic arthroscopy showed multiple bands of thickened plica which would be excised at the end of the procedure. There were no loose bodies or abnormalities found in either the medial or lateral gutters. There were diffuse grades 1 and 2 degenerative changes of the undersurface of the patella as well as grade 1 degenerative changes of the trochlear groove. The patient's knee was flexed to 45 degrees and a valgus force was placed upon it. The medial compartment was entered. An anteromedial portal was made 1 cm proximal to the joint line and 1 cm medial to the patellar tendon. Probing of the medial meniscus showed a radial tear of the posterior horn. A partial medial meniscectomy was performed using the arthroscopic shaver. Following the partial meniscectomy the remainder of the meniscus tissue was stable. There were diffuse grades 1 and 2 degenerative changes of the m edial femoral condyle as well as diffuse grades 1 and 2 degenerative changes of the medial tibial plateau. The articular surface of the medial femoral condyle was made smooth using the arthroscopic shaver. The articular surface of the medial tibial plateau was already smooth so no chondroplasty was indicated. The patient's knee was then placed into a neutral position. There was no injury to the anterior cruciate ligament. The patient's knee was then placed into the figure of 4 position and the lateral compartment was entered. There were minimal degenerative changes of the lateral femoral condyle and lateral tibial plateau. There was no evidence of lateral meniscus tearing. The patient's knee was once again brought into extension and the suprapatellar pouch was entered. The arthroscopic shaver and the ArthroCare Wand were used to excise the thickened bands of plica. The undersurface of the patella was then made smooth using the arthroscopic shaver. The articular surface of the trochlear groove was already smooth so no chondroplasty was indicated. The knee joint was irrigated and then drained. All arthroscopic instruments were removed. The 2 portals were closed with 3-0 nylon interrupted suture. The knee joint was injected with Marcaine. Dry sterile dressing and Jonh bandages were placed over the patient's knee. The patient was awoken and extubated in the operating room. They were transferred to the recovery room in stable condition.
== END 2025-01-04 11:32 | disposition home or self-care (01) ==
PROVIDERS: PCP Family Medicine; Visit Provider Orthopaedic Surgery
PROC: (CPT 29870; principal; 2025-01-04 07:30)
DX: S83.241A Other tear of medial meniscus, current injury, right knee, initial encounter (principal); M17.11 Unilateral primary osteoarthritis, right knee; M25.561 Pain in right knee; M23.51 Chronic instability of knee, right knee; M67.51 Plica syndrome, right knee; X58.XXXA Exposure to other specified factors, initial encounter; Y93.9 Activity, unspecified; Y92.9 Unspecified place or not applicable; Y99.9 Unspecified external cause status; E13.22 Other specified diabetes mellitus with diabetic chronic kidney disease; I12.9 Hypertensive chronic kidney disease with stage 1 through stage 4 chronic kidney disease, or unspecified chronic kidney disease; N18.9 Chronic kidney disease, unspecified; Z79.82 Long term (current) use of aspirin; Z79.84 Long term (current) use of oral hypoglycemic drugs; Z79.899 Other long term (current) drug therapy; Z90.710 Acquired absence of both cervix and uterus
CPT/HCPCS: 29881; 82947; J0131; J0165; J0690; J2250; J2795; J3010

== ENCOUNTER → 2025-01-04 06:21 | Outpatient (BNV) | payer OTHER, SELFPAY | PROVIDERS: PCP Family Medicine; Visit Provider Orthopaedic Surgery | DX: S83.241A Other tear of medial meniscus, current injury, right knee, initial encounter (principal) | CPT/HCPCS: 29881 ==

== ENCOUNTER 2025-01-17 11:29 | Outpatient (AMB) | payer OTHER, SELFPAY ==
--- NOTE | 2025-01-17 11:31 | MHC.OFFVIS ---
Intake Visit Reasons: PO RT knee 01/04/25 DR Intake Note: Wen is a 69 year old woman who presents today in office post operatively after undergoing a right knee arthroscopic surgery on 01/04/2025. States she his having on and off pain and swelling at end of her day. She continues with her home stretching program. She denies any fevers or chills. Physician Allergist Immunologist Name: Breann Baumann [id number] Allergies No Known Allergies (NO KNOWN ALLERGIES) Allergy (Unknown, Verified 01/17/25 11:36) UNKNOWN Medication List - Last Reconciled 01/17/25 by Kailash Watkins MD acetaminophen (Tylenol Extra Strength) 500 mg PO Q6H PRN albuterol sulfate 0.63 mg inhalation QID PRN albuterol sulfate 90 mcg/actuation 2 puffs inhalation Q4-6H PRN amlodipine 5 mg PO DAILY aspirin (Adult Aspirin Regimen) 81 mg PO DAILY atorvastatin 80 mg PO BEDTIME chlorthalidone 25 mg PO DAILY cholecalciferol (vitamin D3) (Vitamin D3) 25 mcg PO DAILY clonazepam (Klonopin) 2 mg PO BEDTIME clonidine HCl 0.1 mg PO BID PRN docusate sodium (Colace) 100 mg PO DAILY PRN fluoxetine 20 mg PO TID glipizide 5 mg PO BID hydralazine 25 mg PO BID insulin degludec (Tresiba FlexTouch U-100 insulin) 10 units subcut DAILY levothyroxine 50 mcg PO QAM linaclotide (Linzess) 290 mcg PO QAM lisinopril 40 mg PO DAILY lorazepam (Ativan) 1 mg PO ONCE mirtazapine 45 mg PO BEDTIME omeprazole 40 mg PO DAILY oxycodone 5 mg PO Q24H PRN prazosin 1 mg PO BEDTIME quetiapine ER 200 mg PO BEDTIME tirzepatide (Mounjaro) 5 mg subcut TU PFSH Medical History Hypothyroidism Anemia Right knee pain Asthma Back pain Arthritis Dysuria Chronic kidney disease Diabetes 1.5, managed as type 2 HTN (hypertension) KIRSTIE (stress urinary incontinence, female) Urge incontinence Chronic idiopathic constipation GERD (gastroesophageal reflux disease) Irritable bowel syndrome with constipation Surgical History Hx of hernia repair H/O tubal ligation Hx of section H/O: hysterectomy History of esophagogastroduodenoscopy (EGD) Hx of colonoscopy (04/2023) Family History Father Family hx of prostate cancer Cancer Brother Cancer Mother HTN (hypertension) Maternal Aunt Skin cancer, Onset Age: 59 Social History Household Members: Family and None Housing: Apartment Are you a primary senior care manager to a significant other at home: No Do you presently have visiting nurse or other home services: Yes (BIOMEDICAL PHOTOGRAPHER 2 x day) Alcohol intake: never Patient Tobacco Use Status: Never used Tobacco e-Cigarette/Vaping Use: Never Used Current occupational status: disabled Female Reproductive History Menstrual Age of Menarche: 12 Physical Exam Extrem Other: Right knee examination shows a minimal effusion, the surgical incisions are healing well, no erythema, mild discomfort with range of motion, no instability Assessment & Plan Assessment & Plan (1) Right knee pain: Code(s): M25.561 - Pain in right knee Category: Medical Plan Ms. Moran is doing fairly well after undergoing right knee arthroscopic surgery on 01/04/2025. Her sutures were removed and Steri-Strips placed over her incisions. She does not wish to go to formal physical therapy at this time. She will gradually progress to activities as tolerated. She will contact me prior to her follow-up appointment in 2-3 months should any questions or concerns arise. Feel free to call me at any time should questions regarding her orthopedic management arise. Coding Level of Care Code Global (20734) Diagnoses Right knee pain M25.561
--- OUTSIDE RECORDS SUMMARY | 2025-01-17 14:50 | XMS_ITS | Encounter Summary ---
Author Organization [employer] Address [address] [facility] 7t [place] [address] Care Team Providers Care Imaging Technician Name Role Phone Kathryn Jarquin MD Primary Care Provider [phone] Denis Rodgers PharmD Unavailable Reason for Visit * Reason Onset Date Comments Med Refill 09/24/2024 Encounter Details Date Type Department Care Team (Late st Contact Info) Description 09/24/2024 Telephone [facility] MEDICINE [address] [place] [address] Kathryn Jarquin MD 230 [place], [place] [phone] Med Refill Social History Tobacco Use Types [...] immediate release tablet To be sent to: [facility] - [place], [place] - [address] [place] [address] documented in this encounter Plan of Treatment Upcoming Encounters Date Type Department Care Team ([facility] st Contact Info) Description 01/21/2025 3:00 PM EDT Medication Management [facility] MEDICINE [address] [place] [address] Denis Rodgers, PharmD 230 [place] [address] 01/24/2025 10:15 AM EDT Office Visit [facility] MEDICINE [address] [place] [address] Kathryn Jarquin MD 230 [place] [address] 02/05/2025 3:00 PM EST Clinical Support [facility] MED & PEDS [address] [place] [address] Rhonda Valdez, DELFINA 505 [place] [address] 02/22/2025 1:45 PM EST Office Visit [facility] OPTOMETRY [address] [place] [address] Francesca Martinez, OD [address] [place] [address] documented as of this encounter Goals Goal [...] documented as of this encounter Care Teams Imaging Technician Relationship Specialty Start Date End Date Kathryn Jarquin MD 230 [place] [address] PCP - General Family Medicine 04/04/18 Denis Rodgers, PharmD [address] [place] [address] Pharmacist Internal Medicine 10/22/22 documented as of this encounter
--- OUTSIDE RECORDS SUMMARY | 2025-01-17 14:50 | XMS_ITS | Encounter Summary ---
Author Organization [employer] Address [address] [facility] [address] 7t [place] [address] Care Team Providers Care Etcher Hand Name Role Phone Kathryn Jarquin MD Primary Care Provider [phone] Denis Rodgers PharmD Unavailable [phone] Encounter Details Date Type Department Care Team ([facility] st Contact Info) Description 04/02/2024 Orders Only [facility]ICINE [address] [place] [address] Kathryn Jarquin MD [address] [place] [address] Social History Tobacco Use Types Packs/Day Years [...] Description 01/21/2025 3:00 PM EDT Medication Management [facility] [address] [place] [address] Denis Rodgers, PharmD [address] [place] [address] 01/24/2025 10:15 AM EDT Office Visit [facility] [address] [place] [address] Kathryn Jarquin MD [address] [place] [address] 02/05/2025 3:00 PM EST Clinical Support [facility]EDS [address] [place] [address] Rhonda Valdez, DELFINA 505 [place] [address] 02/22/2025 1:45 PM EST Office Visit [facility] OPTOMETRY [address] [place] [address] Francesca Martinez OD [address] [place] [address] documented as of this encounter Goals Goal [...] documented as of this encounter Care Teams Etcher Hand Relationship Specialty Start Date End Date Kathryn Jarquin MD [address] [place] [address] PCP - General Family Medicine 04/04/18 Denis Rodgers, PharmD [address] [place] [address] Pharmacist Internal Medicine 10/22/22 documented as of this encounter
--- OUTSIDE RECORDS SUMMARY | 2025-01-17 14:50 | XMS_ITS | Encounter Summary ---
Author Organization [facility], Address [address] [place] [address] Phone Care Team Providers Care Vp Of Digital Marketing Name Role Phone Kathryn Jarquin MD Primary Care Provider [phone] Encounter Details Date Type Department Care Team (Late st Contact Info) Description 09/07/2023 Documentation Only [facility], [address] [place] [address] Doug Luna [address] [place] [address] Social History Tobacco Use Types [...] on filedocumented in this encounter Care Teams Vp Of Digital Marketing Relationship Specialty Start Date End Date Kathryn Jarquin MD [address] [place] [address] PCP - General Family Medicine 08/31/23 documented as of this encounter
--- OUTSIDE RECORDS SUMMARY | 2025-01-17 14:50 | XMS_ITS | Encounter Summary ---
Author Organization [employer] Address [address] [facility] [address] 7t [place] [address] Care Team Providers Care Trauma Surgeon Name Role Phone Kathryn Jarquin MD Primary Care Provider [phone] Denis Rodgers PharmD Unavailable [phone] Encounter Details Date Type Department Care Team (Late st Contact Info) Description 12/17/2024 Orders Only [facility] MEDICINE [address] [place] [address] Kathryn Jarquin MD 230 [place] [address] Hypokalemia (Primary Dx) Social History Tobacco Use [...] Upcoming Encounters Date Type Department Care Team ([facility] st Contact Info) Description 01/21/2025 3:00 PM EDT Medication Management [facility] MEDICINE [address] [place] [address] Denis Rodgers, PharmD [address] [place] [address] 01/24/2025 10:15 AM EDT Office Visit [facility] MEDICINE [address] [place] [address] Kathryn Jarquin MD [address] [place] [address] 02/05/2025 3:00 PM EST Clinical Support [facility] MED & PEDS [address] [place] [address] Rhonda Valdez, DELFINA 505 [place] [address] 02/22/2025 1:45 PM EST Office Visit [facility] OPTOMETRY [address] [place] [address] Francesca Martinez, OD 267 [place] [address] documented as of this encounter Goals Goal Patient Goal Type Associated Problems Recent Progress Patient-Stated? Author Blood Pressure < 140/90 Blood Pressure 122/64( 025 2:28 PM EDT) Denis Watkins, Swapnil documented as of this encounter Procedures Procedure Name Priority Date/Time Associated Diagnosis Comments BASIC METABOLIC PANEL Routine 12/21/2024 9:40 AM EDT Hypokalemia MAGNESIUM Routine 12/19/2024 1:34 PM EDT Hypokalemia documented in this encounter Results * (ABNORMAL) Basic Metabolic Panel (12/21/2024 9:40 AM EDT) Sodium 141 135 - 145 mmol/L [facility] Potassium 3.7 3.3 - 5.1 mmol/L [facility] Chloride 104 96 - 108 mmol/L [facility] Carbon Dioxide 26 22 - 29 mmol/L [facility] Anion Gap 15 12 - 20 [facility] Urea Nitrogen (BUN) 26(H) 9 - 16 mg/dL [facility] Creatinine, Serum 1.54(H) 0.5 - 1.4 mg/dL [facility] Estimated Glomerular Filt Rate 34 [facility] Comment:Chronic Kidney Disea se: Estimated GFR < 60 mL/min/[id number] Kidney Disease: Estimated GFR < 15 mL/min/1.73m2 Glucose 181(H) 60 - 115 mg/dL [facility] Calcium 9.6 8.4 - 10.2 mg/dL [facility] Blood Venous blood specimen / Unknown 12/21/2024 9:40 AM EDT 12/21/2024 11:19 AM EDT us Kathryn Jarquin MD LAB BLOOD ORDERABLES Final Resul t [facility] [address] [place] [address] [phone] * Magnesium (12/19/2024 1:34 PM EDT) Magnesium 1.7 1.6 - 2.6 mg/dL [facility] Blood Venous blood specimen / Unknown 12/19/2024 1:34 PM EDT 12/19/2024 4:03 PM EDT Kathryn Jarquin MD LAB BLOOD ORDERABLES Final Resul t [facility] [address] [place] [address] [phone] documented in this encounter Visit Diagnoses Diagnosis Hypokalemia- Primary Hypopotassemia documented in this encounter Additional Health Concerns Assessment Noted Time PHQ-9 Depression Total Score: 12 024 10:26 AM EST documented as of this encounter Care Teams Trauma Surgeon Relationship Specialty Start Date End Date Kathryn Jarquin MD [address] [place] [address] PCP - General Family Medicine 04/04/18 Denis Rodgers, PharmD [address] [place] [address] Pharmacist Internal Medicine 10/22/22 documented as of this encounter
--- OUTSIDE RECORDS SUMMARY | 2025-01-17 14:50 | XMS_ITS | Encounter Summary ---
Author Organization [employer] Address [address] [facility] 7t [place] [address] Care Team Providers Care Advertising Space Clerk Name Role Phone Kathryn Jarquin MD Primary Care Provider [phone] Denis Rodgers PharmD Unavailable [phone] Encounter Details Date Type Department Care Team ([facility] st Contact Info) Description 09/30/2023 Orders Only [facility] MEDICINE [address] [place], [place] [phone] Kathryn Jarquin MD [address] [place], [place] [phone] Social History Tobacco Use Types Packs/Day Years [...] 3:00 PM EDT Medication Management [facility] MEDICINE [address] [place] [phone] Denis Rodgers, PharmD [address] [place] [address] 01/24/2025 10:15 AM EDT Office Visit [facility] MEDICINE [address] [place] [address] Kathryn Jarquin MD [address] [place] [address] 02/05/2025 3:00 PM EST Clinical Support [facility] MED & PEDS [address] [place] [address] Rhonda Valdez, RN 505 [place] [address] 02/22/2025 1:45 PM EST Office Visit [facility] OPTOMETRY [address] [place] [address] TarkaFrancesca, OD [address] [place] [address] documented as of this encounter Goals Goal Patient Goal Type Associated Problems Recent Progress Patient-Stated? Author Blood Pressure < 140/90 Blood Pressure 122/64( 025 2:28 PM EDT) No Denis Rodgers, PharmD documented as of this encounter Visit Diagnoses Not on filedocumented in this encounter Care Teams Advertising Space Clerk Relationship Specialty Start Date End Date Kathryn Jarquin MD [address] [place] [address] PCP - General Family Medicine 04/04/18 Denis Rodgers, PharmD [address] [place] [address] Pharmacist Internal Medicine 10/22/22 documented as of this encounter
--- OUTSIDE RECORDS SUMMARY | 2025-01-17 14:50 | XMS_ITS | Encounter Summary ---
Author Organization [employer] Address [address] [facility] 7t [place] [address] Care Team Providers Care Application Specialist Name Role Phone Kathryn Jarquin MD Primary Care Provider [phone] Denis Rodgers PharmD Unavailable [phone] Reason for Visit * Reason Comments Med Refill Encounter Details Date Type Department Care Team ([facility] st Contact Info) Description 09/19/2024 Refill [facility] MEDICINE [address] [place], [place] [phone] Kathryn Jarquin MD [address] [place], [place] [phone] Hypomagnesemia Social History Tobacco Use Types Packs/Day [...] Upcoming Encounters Date Type Department Care Team ([facility] st Contact Info) Description 01/21/2025 3:00 PM EDT Medication Management [facility] MEDICINE [address] [place] [address] Denis Rodgers, PharmD [address] [place] [address] 01/24/2025 10:15 AM EDT Office Visit [facility] MEDICINE [address] [place] [address] Kathryn Jarquin MD [address] [place] [address] 02/05/2025 3:00 PM EST Clinical Support [facility] CH[facility] MED & PEDS [address] [place] [address] Rhonda Valdez, DELFINA [address] [place] [address] 02/22/2025 1:45 PM EST Office Visit [facility] OPTOMETRY [address] [place] [address] Francesca Martinez, OD [address] [place] [address] documented as of this encounter Goals Goal [...] documented as of this encounter Care Teams Application Specialist Relationship Specialty Start Date End Date Kathryn Jarquin MD [address] [place] [address] PCP - General Family Medicine 04/04/18 Denis Rodgers, PharmD [address] [place] [address] Pharmacist Internal Medicine 10/22/22 documented as of this encounter
--- OUTSIDE RECORDS SUMMARY | 2025-01-17 14:50 | XMS_ITS | Encounter Summary ---
Author Organization [employer] Address [address] [facility] 7t [place] [address] Care Team Providers Care Shower Screen Installer Name Role Phone Kathryn Jarquin MD Primary Care Provider [phone] Denis Rodgers PharmD Unavailable [phone] Reason for Visit * Reason Onset Date Comments Results 12/17/2024 Encounter Details Date Type Department Care Team (Latest Contact Info) Description 12/17/2024 Results Follow-Up [facility] MEDICINE [address] [place] [address] Kathryn Jarquin MD [address] [place] [address] Comprehensive Metabolic Panel Social History Tobacco Use [...] EDT T/C placed to pt utilizing S #[id number] regarding below results and POC. Informed of [...] Description 01/21/2025 3:00 PM EDT Medication Management [facility] MEDICINE [address] [place] [address] Denis Rodgers, PharmMirela [address] [place] [address] 01/24/2025 10:15 AM EDT Office Visit [facility] MEDICINE [address] [place] [address] Kathryn Jarquin MD 230 [place] [address] 02/05/2025 3:00 PM EST Clinical Support [facility] MED & PEDS [address] [place] [address] Rhonda Valdez, DELFINA 505 [place] [address] 02/22/2025 1:45 PM EST Office Visit [facility] OPTOMETRY [address] [place] [address] Francesca Martinez, OD [address] [place] [address] documented as of this encounter Goals Goal [...] documented as of this encounter Care Teams Shower Screen Installer Relationship Specialty Start Date End Date Kathryn Jarquin MD 230 [place], [place] [phone] PCP - General Family Medicine 04/04/18 Denis Rodgers, NamitaD 230 [place] [address] Pharmacist Internal Medicine 10/22/22 documented as of this encounter
--- OUTSIDE RECORDS SUMMARY | 2025-01-17 14:50 | XMS_ITS | Encounter Summary ---
Author Organization [employer] Address [address] [facility] [address] 7[address] [place] [address] Care Team Providers Care Administrative Support Assoc Name Role Phone Kathryn Jarquin MD Primary Care Provider [phone] Denis Rodgers PharmD Unavailable [phone] Encounter Details Date Type Department Care Team (Late st Contact Info) Description 03/26/2024 Abstract [facility] MEDICINE [address] [place] [address] Mya Garvey [place] Social History Tobacco Use [...] 01/21/2025 3:00 PM EDT Medication Management [facility] MEDICINE [address] [place] [address] Denis Rodgers, PharmD 230 [place] [address] 01/24/2025 10:15 AM EDT Office Visit [facility] MEDICINE [address] [place] [address] Kathryn Jarquin MD 230 [place] [address] 02/05/2025 3:00 PM EST Clinical Support [facility] MED & PEDS [address] [place] [address] Rhonda Valdez, DELFINA 505 [place] [address] 02/22/2025 1:45 PM EST Office Visit [facility] OPTOMETRY [address] [place] [address] Francesca Martinez OD [address] [place] [address] documented as of this encounter Goals Goal [...] on filedocumented in this encounter Care Teams Administrative Support Assoc Relationship Specialty Start Date End Date Kathryn Jarquin MD 230 [place] [address] PCP - General Family Medicine 04/04/18 Denis Rodgers, PharmD [address] [place] [address] Pharmacist Internal Medicine 10/22/22 documented as of this encounter
--- OUTSIDE RECORDS SUMMARY | 2025-01-17 14:50 | XMS_ITS | Encounter Summary ---
Author Organization [employer] Address [address] [facility] [address] [place] [address] Care Team Providers Care Bank Operations Officer Name Role Phone Ktahryn Jarquin MD Primary Care Provider [phone] Denis Rodgers PharmD Unavailable [phone] Reason for Visit * Reason Onset Date Comments Nurse Triage 09/24/2024 Encounter Details Date Type Department Care Team ([facility] st Contact Info) Description 09/24/2024 Telephone [facility] MEDICINE [address] [place] [address] Kathryn Jarquin MD [address] [place], [place] [phone] Nurse Triage Social History Tobacco Use Types [...] RN - 09/24/2024 2:53 PM EDT No translator and interpreter needed as this advertising writer speaks Bermudian. Call returned to Wen Moran to triage below at [phone]. Reports having chronic pain that is using Oxycodone for. Pt was looking for status of Rx. Advised was queued to [facility] nurse for MASSPAT review and then to [...] Reason: Abdominal pain Please contact pt at [phone]. (Bermudian Speaker) documented in this encounter Plan of Treatment Upcoming Encounters Date Type Department Care Team ([facility] st Contact Info) Description 01/21/2025 3:00 PM EDT Medication Management [facility] MEDICINE [address] [place] [address] Denis Rodgers, PharmD [address] [place] [address] 01/24/2025 10:15 AM EDT Office Visit [facility] MEDICINE [address] [place] [address] Kathryn Jarquin MD [address] [place] [address] 02/05/2025 3:00 PM EST Clinical Support [facility] CHC MED & PEDS [address] [place] [address] Rhonda Valdez, RN [address] [place] [address] 02/22/2025 1:45 PM EST Office Visit [facility] OPTOMETRY [address] [place] [address] Francesca Martinez, OD [address] [place] [address] documented as of this encounter Goals Goal [...] documented as of this encounter Care Teams Bank Operations Officer Relationship Specialty Start Date End Date Kathryn Jarquin MD [address] [place] [id number] PCP - General Family Medicine 04/04/18 Denis Rodgers, PharmD [address] [place] [phone] Pharmacist Internal Medicine 10/22/22 documented as of this encounter
--- OUTSIDE RECORDS SUMMARY | 2025-01-17 14:50 | XMS_ITS | Clinical Summary ---
Author Organization [facility] Address [address] [facility] [address] [place] [address] Phone Care Team Providers Care Construction Equipment Technician Name Role Phone Kathryn Jarquin MD Primary Care Provider [phone] Allergies No known active allergies Active Problems [...] Last Assessment & Plan: -follow up with ceo and co founder -avoid nephrotoxic drugs -adjust medication: metformin ER [...] to complete this topic Insurance [facility] [employer] Dual SNP ([id number]) [place] [address] Care Teams Construction Equipment Technician Relationship Specialty Start Date End Date Kathryn Jarquin MD [address] [place] [id number] PCP - General Family Medicine 08/31/23
--- OUTSIDE RECORDS SUMMARY | 2025-01-17 14:50 | XMS_ITS | Clinical Summary ---
Author Organization [facility] Address [address] [place] [address] Care Team Providers Care Drafter Commercial Name Role Phone Kathryn Jarquin MD Primary Care Provider [phone] Denis Rodgers PharmD Unavailable [phone] Allergies No known active allergies Medications * [...] each Active Blood Glucose Monitoring Suppl (FreeStyle Toponas Lite) w/Device kit Use to test blood [...] disease, without long-term current use of insulin (HCC) Chew 4 tablets (16 g) if needed for low blood sugar. 30 tablet 11 08/01/2 025 08/01/ 2026 Active pen needle 32G x 4 mm miscIndications :Type 2 diabetes mellitus with stage 3b chronic kidney disease, without long-term current use of insulin (HCC) Use daily with insulin 100 each 025 2025 Active atorvastatin (Lipitor) 80 MG tablet TAKE 1 TABLET BY MOUTH AT BEDTIME 90 tablet Active Aspirin EC Adult Low Dose 81 MG EC tablet TAKE 1 TABLET BY MOUTH AT BEDTIME 90 tablet Active estradiol (Estrace) 0.1 MG/GM vaginal cream INSERT 1 GRAM VAGINALLY WITH APPLICATORFUL AT BEDTIME TWICE EACH WEEK Active Tirzepatide (Mounjaro) 5 MG/0.5ML solution auto-injectorIn dications:Type 2 diabetes mellitus with stage 3b chronic kidney disease, without long-term current use of insulin ([facility]) Inject 5 mg under the skin 1 (one) time per week. 2 mL 5 Active Continuous Glucose Patient Assistant (FreeStyle Godfrey 3 [place]) deviceIndicatio ns:Type 2 diabetes mellitus with stage 3b chronic kidney disease, without long-term current use of insulin ([facility]) 1 each Once per day. Use as directed for CGM 1 each Active Continuous Glucose Sensor (FreeStyle Godfrey 3 Plus Sensor) miscIndications :Type 2 diabetes mellitus with stage 3b chronic kidney disease, without long-term current use of insulin ([facility]) 1 each every 15 days. Apply 1 every 15 days as directed for CGM 2 each Active glucose blood (FreeStyle Precision Edi Test) test stripIndication s:Type 2 diabetes mellitus with stage 3b chronic kidney disease, without long-term current use of insulin ([facility]) Use to test blood sugar 2 times daily in case of CGM failure or extremes of BG 50 each 2025 Active oxyCODONE (Roxicodone) 5 MG immediate release tabletIndicatio ns:Upper back pain,Chronic pain of both knees,Chronic female pelvic pain,Chronic pain syndrome Take 1 tablet (5 mg) by mouth if needed each day for severe pain. Do not start before January 16, 2025. 28 tablet 025 Active oxyCODONE (Roxicodone) 5 MG immediate release tabletIndicatio ns:Upper back pain,Chronic pain of both knees,Chronic female pelvic pain,Chronic pain syndrome Take 1 tablet (5 mg) by mouth if needed at bedtime for severe pain. 28 tablet 025 2024 Discontinued oxyCODONE (Roxicodone) 5 MG immediate [...] EDT): - lumbar spondylosis - following with [facility] pain management, plan for MBB. [...] (08/07/2024 9:08 AM EDT): - followed by [facility] GI - Work on achieving healthy weight and diet Assessment & Plan (04/05/2024 5:43 AM EST): - followed by [facility] GI - Work on achieving healthy weight and diet Assessment & Plan (05/08/2023 12:06 PM EST): - followed by [facility] GI - Work on achieving healthy weight and diet Knee pain 01/07/2023 Assessment & Plan (10/29/2024 12:10 PM EDT): - following with [facility] Ortho, last seen in July [...] (08/12/2024 6:43 AM EDT): - following with [facility] Ortho - MRI on 08/26/24: [...] 6:33 AM EDT): - taking oxycodone under HANDLE FINISHER agreement since Mar 2024 - evaluated by project director and given reassurance for no gynecological abnormality - upcoming appointment with GI and pain management - continue current behavioral health service Assessment & Plan (04/05/2024 5:40 AM EST): - Takes non-prescribed oxycodone to try and relieve the pain and help her sleep - Will start at low dose oxycodone only one at bedtime; discussed about its judicious use and the importance of attending HANDLE FINISHER appt Assessment & Plan (10/30/2022 4:06 PM EDT): - seen by urogynecologist, project director, general surgeon, and GI - Will check [...] (08/12/2022 4:18 PM EDT): - seen by project director, general surgeon, and GI - Will check [...] last seen in 2020 - seen by [facility] in September 2023 - check UA/ UCx - hold restarting oxybutynin due to current urinary retention - advised to reschedule appointment with urogyn Assessment & Plan (05/08/2023 12:09 PM EST): - Hx OAB, on oxybutynin, previously following with Dr. Peñaloza, last seen in 2020 - seen by [facility] in August 2022, upcoming follow-up appt - check UA/ UCx - hold restarting oxybutynin due to current urinary retention Assessment & Plan (10/30/2022 4:09 PM EDT): - Hx OAB, on oxybutynin, previously following with Dr. Peñaloza, last seen in 2020 - seen by [facility] in August 2022, upcoming follow-up appt [...] LT4 accordingly Stage 3b chronic kidney disease ([facility]/HCC) 2022 Assessment & Plan (10/29/2024 12:14 PM EDT): -following with tariff compiling clerk, last seen in May 2024 -avoid nephrotoxic drugs -no longer on metformin or ACEI/ARB -consider SGLT2i (relative contraindication due to LUTS) Assessment & Plan (08/12/2024 6:38 AM EDT): -following with tariff compiling clerk, last seen in May 2024 -avoid nephrotoxic drugs -no longer on metformin or ACEI/ARB -consider SGLT2i Assessment & Plan (04/05/2024 5:47 AM EST): -following with tariff compiling clerk, last seen in Nov 2023 -avoid nephrotoxic drugs -no longer on metformin -consider SGLT2i Assessment & Plan (05/08/2023 12:00 PM EST): -following with tariff compiling clerk -avoid nephrotoxic drugs -no longer on metformin -clarify with GI whether patient needs to be on PPI Assessment & Plan (10/30/2022 4:11 PM EDT): -follow up with tariff compiling clerk -avoid nephrotoxic drugs -adjust medication: metformin ER to 500 mg bid - lab review: 08/10/22 K 4.6; BUN 28; Scr 1.0 ; eGFR 56; Bicarb 28 Assessment & Plan (08/09/2022 11:50 AM EDT): -follow up with tariff compiling clerk -avoid nephrotoxic drugs -adjust medication: metformin ER to 500 mg bid Assessment & Plan (06/03/2022 2:31 AM EST): -refer to tariff compiling clerk -avoid nephrotoxic drugs -adjust medication: metformin [...] September 2024. S/p hysterectomy. Benign finding. -Started HANDLE FINISHER with oxycodone 5 mg at night since Mar 2024 -Last HANDLE FINISHER visit on 08/01/24, pill count suggested misuse. [...] & Plan (08/12/2024 6:31 AM EDT): -Started HANDLE FINISHER with oxycodone 5 mg at night since Mar 2024 -Last HANDLE FINISHER visit on 08/01/24, pill count suggested misuse. [...] to start oxycodone under close monitoring with HANDLE FINISHER program; patient verbalized understanding -Discussed about increased [...] (08/07/2024 9:07 AM EDT): - followed by [facility] GI - check whether patient needs to be on PPI or can be changed to H2-hao as recommended by tariff compiling clerk Assessment & Plan (05/08/2023 12:02 PM EST): - followed by [facility] GI - check whether patient needs to be on PPI or can be changed to H2-hao as recommended by tariff compiling clerk Generalized anxiety disorder with panic attacks 01/23/2015 Assessment & Plan (04/05/2024 5:54 AM EST): -tremor, patient is able to stop tremor voluntarily -check TSH Assessment & Plan (06/03/2022 2:23 AM EST): -tremor -check TSH Irritable bowel syndrome 01/23/2015 Assessment & Plan (08/07/2024 9:07 AM EDT): GI: [facility], last visit in Apr 2023 Current medication: Linzess 290 mg daily Normal EGD and colonoscopy in [facility] in Jan 2013. Colonoscopy in Apr 2023 by [facility] GI, hyperplastic polyp. Repeat in 5 years. Assessment & Plan (04/05/2024 5:45 AM EST): GI: [facility], last visit in Apr 2023 Current medication: Linzess 290 mg daily Normal EGD and colonoscopy in [facility] in Jan 2013. Colonoscopy in Apr 2023 by [facility] GI, hyperplastic polyp. Repeat in 5 years. Assessment & Plan (10/30/2022 4:20 PM EDT): GI: [facility], last visit in 08/04/22 Current medication: Linzess 290 mg daily Normal EGD and colonoscopy in [facility] in Jan 2013. Anticipating another colonoscopy soon Assessment & Plan (08/12/2022 4:19 PM EDT): GI: [facility], last visit in 08/04/22 Current medication: Linzess 290 mg daily Normal EGD and colonoscopy in [facility] in Jan 2013. Anticipating another colonoscopy soon Assessment & Plan (06/03/2022 2:15 AM EST): GI: [facility], last visit in 08/11/21 Current medication: Linzess 290 mg daily Normal EGD and colonoscopy in [facility] in Jan 2013. Pt has to reschedule colonoscopy with GI Specialist Encouraged medication compliance Pt seems to have changed GI; will confirm Recurrent major depression 01/23/2015 Assessment & Plan (10/29/2024 12:15 PM EDT): -[facility] provider: [facility] -Continue current medications: clonazepam; fluoxetine; prazosin; clonidine; quetiapine Assessment & Plan (04/05/2024 5:54 AM EST): -[facility] provider: [facility] -Continue current medications: clonazepam; fluoxetine; prazosin; clonidine; quetiapine Assessment & Plan (05/08/2023 12:22 PM EST): -[facility] provider: [facility] -Continue current medications: clonazepam; fluoxetine; prazosin; clonidine; quetiapine Assessment & Plan (10/30/2022 4:18 PM EDT): -[facility] provider: [facility] -Continue current medications: clonazepam; fluoxetine; prazosin; clonidine; quetiapine Assessment & Plan (06/03/2022 2:22 AM EST): -[facility] provider: [facility] [...] with Denis Rodgers RPh through CDTM and tariff compiling clerk -Work on lifestyle modifications, DASH diet and increase physical activity -continue amlodipine 5 mg daily -continue chlorthalidone 25 mg daily -continue Hydralazine 25 mg BID (tariff compiling clerk seems to be unaware of medication, [...] with Denis Rodgers RPh through CDTM and tariff compiling clerk -Work on lifestyle modifications, DASH diet and increase physical activity -continue amlodipine 5 mg daily -continue chlorthalidone 25 mg daily -continue Hydralazine 25 mg BID (tariff compiling clerk seems to be unaware of medication, [...] with Denis Rodgers RPh through CDTM and tariff compiling clerk -Work on lifestyle modifications, DASH diet and increase physical activity -continue amlodipine 5 mg daily -continue chlorthalidone 12.5 mg daily -continue Hydralazine 25 mg BID (tariff compiling clerk seems to be unaware of medication, [...] with Denis Rodgers RPh through MADIETM and tariff compiling clerk -Work on lifestyle modifications, DASH diet and increase physical activity -continue lisinopril 20 mg daily -continue chlorthalidone 12.5 mg daily -continue Hydralazine 25 mg BID (tariff compiling clerk seems to be unaware of medication, [...] - Comanaged with Denis Rodgers Rph through [facility] -Work on lifestyle modifications, DASH diet and [...] UTI/vaginal candidiasis / UI. Last eye exam: [facility]. Nov 2023. Last foot exam: 05/02/23 [...] UTI/vaginal candidiasis / UI. Last eye exam: [facility]. Nov 2023. Last foot exam: 05/02/23 Last [...] Resolved Date Stage 4 chronic kidney disease (CMS/HCC) 12/19/2024 12/21/2024 Suprapubic abdominal pain 01/07/2023 Assessment [...] Encounters Date Type Department Care Team Description 01/07/2025 Refill [facility] [address] [place] [address] Rhonda Valdez RN Upper back pain; Chronic pain of both knees; Chronic female pelvic pain; Chronic pain syndrome 01/07/2025 Telephone [facility] [address] [place] [address] Kathryn Jarquin MD telephone call 01/04/2025 Orders Only GENERIC EXTERNAL DATA DEPARTMENT Provider, Generic External Data 12/19/2024 2:00 PM EDT Office Visit [address] [address] Dara Hayes MD Pre-operative exam (Primary Dx); Class 1 obesity with serious comorbidity and body mass index (BMI) of 33.0 to 33.9 in adult, unspecified obesity type; Type 2 diabetes mellitus with stage 3b chronic kidney disease, without long-term current use of insulin ([facility]/HCC); Stage 3b chronic kidney disease (CMS/HCC) 12/19/2024 Orders Only GENERIC EXTERNAL DATA DEPARTMENT Provider, Generic External Data 12/19/2024 Refill [facility] [address] [place] [address] Kathryn Jarquin MD Upper back pain; Chronic pain of both knees; Chronic female pelvic pain; Chronic pain syndrome 12/19/2024 Travel 12/18/2024 Telephone [facility] [address] [place] [address] Kathryn Jarquin MD chart prep 12/17/2024 Orders Only [address] [address] Kathryn Jarquin MD Hypokalemia (Primary Dx) 12/17/2024 Results Follow-Up [address] [address] Kathryn Jarquin MD Comprehensive Metabolic Panel 12/10/2024 Travel 12/04/2024 2:30 PM EDT Clinical Support [facility] [address] [place] [address] Rhonda Valdez, deboner pain of both knees 12/04/[address] [address] Kathryn Jarquin MD Pre Op Appt request 12/04/2024 Travel 11/28/[address] [address] Kathryn Jarquin MD 11/15/[address] [address] Kathryn Jarquin MD Upper back pain; Chronic pain of both knees; Chronic female pelvic pain; Chronic pain syndrome 11/12/[address] [address] Kathryn Jarquin MD 11/09/[address] [address] Kathryn Jarquin MD chart prep 11/07/2024 Orders Only [facility] External Provider, [facility] 11/02/2024 Travel 11/02/2024 Patient Outreach [address] [address] Kathryn Jarquin MD Pre-visit Planning (Pre-visit planning - LVM ) 10/30/2024 Travel 10/30/2024 Telephone [facility] [address] [place] [address] Rhonda Valdez, RN HANDLE FINISHER 10/29/2024 9:00 AM EDT Office Visit [address] [address] Kathryn Jarquin MD Hypertension, unspecified type (Primary [...] whether sciatica present 10/29/2024 Travel 10/26/2024 Telephone [facility] [address] [place] [address] Kathryn Jarquin MD Chart Prep 10/23/2024 10:00 AM EDT Office Visit [facility] [address] [place] [address] Art, Nadine, OD Type 2 diabetes mellitus with retinopathy of both eyes, with long-term current use of insulin, macular edema presence unspecified, unspecified retinopathy severity (CMS/HCC) (Primary Dx) 10/23/2024 Travel 10/19/2024 Telephone [facility] [address] [place] [address] Kathryn Jarquin MD FYI from Last 3 Months Immunizations Immunization Administration [...] 11/25/2021, 11/25/2021,07/04/2020,06/06 Pfizer Covid-19 Vaccine 12+ 08/07/2024, 4 Pneumococcal [...] 3:00 PM EDT Medication Management [facility] [address] [place] [phone] Denis Rodgers, PharmD [address] [place] [address] 01/24/2025 10:15 AM EDT Office Visit [facility] [address] [place] [address] Kathryn Jarquin MD [address] [place] [address] 02/05/2025 3:00 PM EST Clinical Support [facility] [address] [place], [place] [phone] Rhonda Valdez, RN [address] [place] [address] 02/22/2025 1:45 PM EST Office Visit [facility] [address] [place] [address] Francesca Martinez, OD [address] [place] [address] Health Maintenance Due Date Last Done Comments [...] Pressure 122/64( 025 2:28 PM EDT) Denis Watkins PharmD Procedures Procedure Name Priority Date/Time Associated Diagnosis Comments GLUCOSE, WHOLE BLOOD Routine 01/04/2025 7:01 AM EDT CBC WITH AUTO DIFFERENTIAL Routine 12/21/2024 9:40 AM EDT Pre-operative exam BASIC METABOLIC PANEL Routine 12/21/2024 9:40 AM EDT Hypokalemia ECG 12-LEAD Routine 12/21/2024 8:11 AM EDT Pre-operative exam POCT GLYCATED HEMOGLOBIN, TOTAL Routine 12/19/2024 2:48 PM EDT Type 2 diabetes mellitus with stage 3b chronic kidney disease, without long-term current use of insulin ([facility]) POCT GLUCOSE Routine 12/19/2024 2:29 PM EDT Type 2 diabetes mellitus with stage 3b chronic kidney disease, without long-term current use of insulin ([facility]) BASIC METABOLIC PANEL Routine 12/19/2024 1:34 PM [...] disease, without long-term current use of insulin ([facility]/HCC) POCT GLUCOSE Routine 10/29/2024 9:03 AM EDT Type 2 diabetes mellitus with stage 3b chronic kidney disease, without long-term current use of insulin (CMS/HCC) FUNDUS PHOTOS - OU - BOTH EYES Routine 10/23/2024 10:00 AM EDT Type 2 diabetes mellitus with retinopathy of both eyes, with long-term current use of insulin, macular edema presence unspecified, unspecified retinopathy severity ([facility]/HCC) DIABETES EYE EXAM Routine 11/18/2023 COLONOSCOPY Routine 04/15/2023 [facility] HISTORICAL HEPATITIS C ANTIBODY RFLX Routine 04/18/2019 8:30 AM EST from Last 3 Months or Most Recently Relevant to Health Maintenance Results * (ABNORMAL) Glucose, Whole Blood (01/04/2025 7:01 AM EDT) Glucose, Whole Blood 247(H) 60 - 115 mg/dL [facility] Comment:METER #: [id number] 01/04/2025 7:01 AM EDT 01/04/2025 7:07 AM EDT us Generic External Data Provider LAB BLOOD ORDERAB LES Final Result [facility] [address] [place] [phone] * (ABNORMAL) CBC auto differential (12/21/2024 9:40 AM EDT) White Blood Count 11.5(H) 4.8 - 10.8 X10*3/uL [facility] Red Blood Count 4.52 4.20 - 5.50 X10*6/uL [facility] Hemoglobin 12.2 12.0 - 16.0 g/dl [facility] Hematocrit 37.7 37.0 - 47.0 % [facility] Mean Corpuscular Volume 83.4 80.0 - 98.0 fL [facility] Mean Corpuscular Hemoglobin 27.0 27.0 - 33.0 pg [facility] Mean Corpuscular HGB Conc 32.4 31.0 - 35.0 g/dl [facility] Red Cell Distribution Width 16.6(H) 11.0 - 16.0 % [facility] Platelet Count 284 160 - 400 X10*3/uL [facility] Mean Platelet Volume 11.5 9.4 - 12.3 fL [facility] Neutrophils Percent Auto 53.9 45 - 73 % [facility] Imm Gran Pct Auto 0.3 0.0 - 0.4 % [facility] Lymphocytes Percent Auto 38.1 20 - 40 % [facility] Monocytes Percent Auto 5.5 2 - 11 % [facility] Eosinophils Percent Auto 1.7 0 - 4 % [facility] Basophils Percent Auto 0.5 0 - 2 % [facility] NRBC Pct Auto 0.0 0.0 - 0.2 /100WBC [facility] Neutrophils Absolute Auto 6.2 2.0 - 8.3 x10*3/uL [facility] Imm Gran Abs Auto 0.04(H) 0.00 - 0.03 X10*3/uL [facility] Lymphocytes Absolute Auto 4.4 1.2 - 4.9 X10*3/uL [facility] Monocytes Absolute Auto 0.6 0.1 - 1.2 X10*3/uL [facility] Eosinophils Absolute Auto 0.2 0.0 - 0.4 X10*3/uL [facility] Basophils Absolute Auto 0.1 0.0 - 0.2 X10*3/uL [facility] NRBC Abs Auto 0.000 0.0 - 0.012 X10*3/uL [facility] Blood Venous blood specimen / Unknown 12/21/2024 9:40 AM EDT 12/21/2024 11:12 AM EDT us Dara Hayes MD LAB BLOOD ORDERABLES Final Res ult Performing Organization Address [facility] de Phone Number [facility] [address] [place] [address] [phone] * (ABNORMAL) Basic Metabolic Panel (12/21/2024 9:40 AM EDT) Only the most recent of2 resultswithin the time period is included. Sodium 141 135 - 145 mmol/L [facility] Potassium 3.7 3.3 - 5.1 mmol/L [facility] Chloride 104 96 - 108 mmol/L [facility] Carbon Dioxide 26 22 - 29 mmol/L [facility] Anion Gap 15 12 - 20 [facility] Urea Nitrogen (BUN) 26(H) 9 - 16 mg/dL [facility] Creatinine, Serum 1.54(H) 0.5 - 1.4 mg/dL [facility] Estimated Glomerular Filt Rate 34 [facility] Comment:Chronic Kidney Disea se: Estimated GFR < 60 mL/min/[id number] Kidney Disease: Estimated GFR < 15 mL/min/1.73m2 Glucose 181(H) 60 - 115 mg/dL [facility] Calcium 9.6 8.4 - 10.2 mg/dL [facility] Blood Venous blood specimen / Unknown 12/21/2024 9:40 AM EDT 12/21/2024 11:19 AM EDT us Kathryn Jarquin MD LAB BLOOD ORDERABLES Final Resul t Performing Organization Address City/[facility]/ZIP Co de Phone Number [facility] [address] [place] [phone] * ECG 12 lead (12/21/2024 8:11 AM [...] Media Lot # [id number] Lot# Expiration Date 72 Blood Capillary blood specimen / Unknown 12/19/2024 2:29 PM EDT Dara Hayes MD POINT OF CARE TEST ENTER/EDIT ORDERABLES Final Result * (ABNORMAL) Lipid Panel with Reflex to Direct LDL (12/19/2024 1:34 PM EDT) Triglycerides 181(H) <150 mg/dL [facility] Comment:Slight Lipemia.Brown able Triglyceride: less than 150 mg/dLBorderline High Triglyceride 150-199 mg/dLHigh Triglyceride: 200-499 mg/dLVery High Triglyceride: greater than or equal to 5OO mg/dL Cholesterol 237(H) <200 mg/dL [facility] Comment:Desirable Cholestero l: less than 200 mg/dLBorderline High Cholesterol: 200-239 mg/dLHigh Cholesterol: greater than 239 mg/dL LDL Cholesterol Calculated 147(H) <100 mg/dL [facility] Comment:Desirable LDL: less than 100 mg/dLNear Optimal/Above Optimal LDL: 110- 129 mg/dLBorderline High LDL: 130-159 mg/dLHigh LDL: 160-189 mg/dLVery High LDL: greater than or equal to 190 mg/dL HDL Cholesterol 54 >40 mg/dL [facility] Comment:Desirable HDL: great er than 40 mg/dL Note: This HDL assay may give artificially low results in patients with liver disease. Blood 12/19/2024 1:34 PM EDT 12/19/2024 4:03 PM EDT Kathryn Jarquin MD LAB BLOOD ORDERABLES Final Resul t Performing Organization Address [facility] Co de Phone Number [facility] [address] [place] [phone] * Magnesium (12/19/2024 1:34 PM EDT) Magnesium 1.7 1.6 - 2.6 mg/dL [facility] Blood Venous blood specimen / Unknown 12/19/2024 1:34 PM EDT 12/19/2024 4:03 PM EDT Kathryn Jarquin MD LAB BLOOD ORDERABLES Final Resul t Performing Organization Address [facility] Co de Phone Number [facility] [address] [place] [phone] * (ABNORMAL) Comprehensive Metabolic Panel (12/17/2024 8:16 AM EDT) Sodium 141 135 - 145 mmol/L [facility] Potassium 3.2(L) 3.3 - 5.1 mmol/L [facility] Chloride 103 96 - 108 mmol/L [facility] Carbon Dioxide 24 22 - 29 mmol/L [facility] Anion Gap 17 12 - 20 [facility] Urea Nitrogen (BUN) 24(H) 9 - 16 mg/dL [facility] Creatinine, Serum 1.41(H) 0.5 - 1.4 mg/dL [facility] Estimated Glomerular Filt Rate 37 [facility] Comment:Chronic Kidney Disea se: Estimated GFR < 60 mL/min/[id number] Kidney Disease: Estimated GFR < 15 mL/min/1.73m2 Glucose 179(H) 60 - 115 mg/dL [facility] Calcium 9.5 8.4 - 10.2 mg/dL [facility] Bilirubin, Total 0.4 0.0 - 1.0 mg/dL [facility] Aspartate Amino Transferase 17 5 - 31 U/L [facility] Alanine Aminotransferase 8 0 - 31 U/L [facility] Total Protein 7.4 6.5 - 8.0 g/dL [facility] Albumin Level 4.4 3.5 - 5.0 g/dL [facility] Alkaline Phosphatase 125(H) 39 - 117 U/L [facility] Blood Venous blood specimen / Unknown 12/17/2024 8:16 AM EDT 12/17/2024 11:04 AM EDT us Kathryn Jarquin MD LAB BLOOD ORDERABLES Final Resul t [facility] [address] [place] [phone] * (ABNORMAL) POCT FLORENCIA-14 Urine Drug [...] 2:31 PM EDT Internal Pass Control Lot# [id number] Exp: 02-01-26 Kathryn Jarquin MD POINT OF CARE TEST ENTER/EDIT OR DERABLES Final Result * BI Mammogram Screening Tomosynthesis Bilateral (11/07/2024 11:36 AM EDT) Anatomical Region Laterality Modality Breast Bilateral Mammography 11/07/2024 11:3 6 AM EDT Narrative 11/17/2024 6:20 PM EDT [facility]'[address] [place] [address] Mammography Report Signed Patient: Wen Moran MR#: [id number] : 1955 Acct:[id number] Age/Sex: 69 / F ADM Date: 11/07/24 Loc: [facility] Attending Dr: Kathryn Jarquin MD Ordering Physician: Jaylen Cotton MD Results: 1Negativ e Date of Service: 11/07/24 Follow Up: 1 Year From [facility] Mammogram Procedure(s): MM tomosynthesis screening BI Accession Number(s): [id number] cc: Kathryn Jarquin MD; Jaylen Cotton MD [...] 11/17/24 1817 DD/ 1136 TD/TT: 11/07/24 1150 Legislative Advocate: Procedure Note Donotuseinterpreter, Image - 11/17/2024 [facility]'s [address] [place] [address] Mammography Report Signed Patient: Javi MoranR#: [id number] : 7Acct:[id number] Age/Sex: 69 / FADM Date: 11/07/24 Loc: [facility] Attending Dr: Kathryn Jarquin MD Ordering Physician: Jaylen Cotton MDResults: 1Negativ e Date of Service: 11/07/24Follow Up: 1 Year From Orig ina Mammogram Procedure(s): MM tomosynthesis screening BI Accession Number(s): [id number] cc: Kathryn Jarquin MD; Jaylen Cotton MD [...] for their next mammogram. Electronically signed by: eNal Fields MD 11/17/2024 06:17 PM EDT Dictated By: Neal Fields MD Signed By: <Electronically signed by Neal Fields MD in OV> 11/17/24 1817 DD/ 1136 TD/TT: 11/07/24 1150 Legislative Advocate: [facility] External Provider IMG BI PROCEDURES Edited [...] OD OPHTH PHOTOGRAPHY Final Resul t * Diabetes Eye Exam (11/18/2023) Eye Exam Normal Normal 11/18/2023 Historical Provider HEALTH MAINTENANCE Final Result * Colonoscopy (04/15/2023) Colonoscopy Normal Normal Narrative Chayo Tobin - 04/15/2023 Recommended 5 year follow up see external hospital admission note on 04/15/2023 Historical Provider HEALTH MAINTENANCE Final Result * HEPATITIS C ANTIBODY RFLX (04/18/2019 8:30 AM EST) Pathologist [facility] [place] HEPATITIS C ANTIBODY NONREACTIVE NONREACTIVE [facility] Comment: Antibodies to HCV not detected; does not exclude early acute HCV infection. 04/18/2019 8:30 AM EST Kathryn Jarquin MD HISTORICAL/NON ORDERABLE LABS Fi nal Result [facility] [address] from Last 3 Months or Most Recently Relevant to Health Maintenance Insurance [facility] RESIDENTIAL OPTIONS (O D-SNP) [place] [id number] [employer] Care Teams Drafter Commercial Relationship Specialty Start Date End Date Kathryn Jarquin MD [address] [place] [phone] PCP - General Family Medicine 04/04/18 Denis Rodgers, NamitaD [address] [place] [phone] Pharmacist Internal Medicine 10/22/22
--- OUTSIDE RECORDS SUMMARY | 2025-01-17 14:50 | XMS_ITS | Encounter Summary ---
Author Organization [employer] Address [address] [facility] 7t [place] [address] Care Team Providers Care Automation Lead Name Role Phone Kathryn Jarquin MD Primary Care Provider [phone] Denis Rodgers PharmD Unavailable [phone] Reason for Visit * Reason Comments Med Refill Encounter Details Date Type Department Care Team ([facility] st Contact Info) Description 05/28/2024 Refill [facility] MEDICINE [address] [place], [place] [phone] Kathryn Jarquin MD [address] [place] [address] Upper back pain; Chronic pain of both [...] Upcoming Encounters Date Type Department Care Team ([facility] Contact Info) Description 01/21/2025 3:00 PM EDT Medication Management [facility] MEDICINE [address] [place] [phone] Denis Rodgers, PharmD [address] [place] [address] 01/24/2025 10:15 AM EDT Office Visit [facility] MEDICINE [address] [place] [phone] Kathryn Jarquin MD [address] [place] [address] 02/05/2025 3:00 PM EST Clinical Support [facility] CHC MED & PEDS [address] [place] [address] Rhonda Valdez, RN [address] [place] [address] 02/22/2025 1:45 PM EST Office Visit [facility] OPTOMETRY [address] [place] [address] Francesca Martinez, OD [address] [place] [address] documented as of this encounter Goals Goal [...] documented as of this encounter Care Teams Automation Lead Relationship Specialty Start Date End Date Kathryn Jarquin MD [address] [place] [address] PCP - General Family Medicine 04/04/18 Dneis Rodgers, PharmD [address] [place] [address] Pharmacist Internal Medicine 10/22/22 documented as of this encounter
--- OUTSIDE RECORDS SUMMARY | 2025-01-17 14:50 | XMS_ITS | Encounter Summary ---
Author Organization [employer] Address [address] [facility] [address] [place] [address] Care Team Providers Care Sleeve Ironer Name Role Phone Kathryn Jarquin MD Primary Care Provider [phone] Denis Rodgers PharmD Unavailable [phone] Encounter Details Date Type Department Care Team (Late st Contact Info) Description 01/14/2023 Orders Only [facility] MEDICINE [address] [place] [address] Kathryn Jarquin MD [address] [place] [address] Stage 3b chronic kidney disease (CMS/HCC) (Primary [...] Medication Management [facility] MEDICINE [address] [place] [phone] Denis Rodgers, Swapnil [address] [place] [address] 01/24/2025 10:15 AM EDT Office Visit [facility] MEDICINE [address] [place] [phone] Kathryn Jarquin MD [address] [place] [address] 02/05/2025 3:00 PM EST Clinical Support [facility] CHC MED & PEDS [address] [place], [place] [phone] Rhonda Valdez, RN [address] [place] [address] 02/22/2025 1:45 PM EST Office Visit [facility] OPTOMETRY [address] [place] [address] Francesca Martinez, OD [address] [place] [address] documented as of this encounter Goals Goal Patient Goal Type Associated Problems Recent Progress Patient-Stated? Author Blood Pressure < 140/90 Blood Pressure 122/64( 025 2:28 PM EDT) No Denis Rodgers, PharmD documented as of this encounter Visit Diagnoses Diagnosis Stage 3b chronic kidney disease (CMS/HCC) (HCC)- Primary Essential hypertension Unspecified essential hypertension Type 2 diabetes mellitus with hyperglycemia, without long-term current use of insulin (HCC) documented in this encounter Care Teams Sleeve Ironer Relationship Specialty Start Date End Date Kathryn Jarquin MD [address] [place], [place] [phone] PCP - General Family Medicine 04/04/18 Denis Rodgers PharmD [address] [place] [address] Pharmacist Internal Medicine 10/22/22 documented as of this encounter
--- OUTSIDE RECORDS SUMMARY | 2025-01-17 14:50 | XMS_ITS | Encounter Summary ---
Author Organization [employer] Address [address] [facility] 7t [place] [address] Care Team Providers Care Steamboat Inspector Name Role Phone Kathryn Jarquin MD Primary Care Provider [phone] Denis Rodgers PharmD Unavailable [phone] Reason for Visit * Reason Comments Med Refill Encounter Details Date Type Department Care Team ([facility] st Contact Info) Description 05/29/2024 Refill [facility] MEDICINE [address] [place], [place] [phone] Kathryn Jarquin MD [address] [place] [address] Upper back pain; Chronic pain of both [...] Upcoming Encounters Date Type Department Care Team ([facility] Contact Info) Description 01/21/2025 3:00 PM EDT Medication Management [facility] MEDICINE [address] [place] [phone] Denis Rodgers, PharmD [address] [place] [address] 01/24/2025 10:15 AM EDT Office Visit [facility] MEDICINE [address] [place] [phone] Kathryn Jarquin MD [address] [place] [address] 02/05/2025 3:00 PM EST Clinical Support [facility] CHC MED & PEDS [address] [place] [address] Rhonda Valdez, RN [address] [place] [address] 02/22/2025 1:45 PM EST Office Visit [facility] OPTOMETRY [address] [place] [address] Francesca Martinez, OD [address] [place] [address] documented as of this encounter Goals Goal [...] documented as of this encounter Care Teams Steamboat Inspector Relationship Specialty Start Date End Date Kathryn Jarquin MD [address] [place] [address] PCP - General Family Medicine 04/04/18 Denis Rodgers, PharmD [address] [place] [address] Pharmacist Internal Medicine 10/22/22 documented as of this encounter
--- OUTSIDE RECORDS SUMMARY | 2025-01-17 14:50 | XMS_ITS | Data Portability ---
Author Organization [facility], Main Office Address [address] [place] [address] Care Team Providers Care Pearl Technician Name Role Phone [facility] ([facility]) OTHER Assessment No assessment recorded. Plan of Treatment Reminders Order Date Submit Date Provider Last Modified By Organization Details Last Modified Time Details Appointments None record ed. Lab None record ed. Referral None record ed. Procedures None record ed. Surgeries None record ed. Imaging None record ed. Medication Orders None record ed. Patient TargetsNo targets recorded. Patient Instructions Encounter Date Encounter Id Patient Instructions Last Modified By Organization Details Last Modified Time 10/09/2024 [id number] vitamin D supplemetation [email or web address] Not available 10/09/2024 13:20:17 Reason for Referral None Reported. Problems Name Problem SNOMED Code Status Onset Date Resolution Date Notes Provider Name and Address Organization Details Recorded Time Type 2 diabetes mellitus without complication 235714825 Active 2024 Not Available [facility] 16:22:55 Essential hypertension 35910979 Active 2024 Not Available [facility] 16:14:24 Gastroesophag eal reflux disease without esophagitis 432958720 Active 2024 Not Available [facility] 16:15:22 Irritable bowel syndrome characterized by constipation 210277080 Active 2024 Not Available [facility] 16:15:24 Backache 092505424 Active 2024 Not Available [facility] 16:22:56 Pain in right lower limb 736275716 Active 2024 Not Available [facility] 16:22:58 Chronic kidney disease stage 4 459664863 Active 2024 Not Available [facility] 16:20:00 Muscle weakness 11789095 Active 2024 Not Available [facility] 16:39:11 Difficulty walking 309800633 Active 2024 Not Available [facility] [...] Not Available Not Available Not Avai lable Non-Aspirin Extra Strength 500 mg tablet Give 1000 mg by mouth three times a day for Pain 2024 active Not Available Not Available Not Avai lable Humalog U-100 Insulin 100 unit/mL subcutaneou s solution Inject as per sliding scale: if 200 - 249 = 2 units; 250 - 299 = 4 units; 300 - 349 = 6 units; 359 - 399 = 8 units if Bs greater than 400 call chronic specialist provider, subcutane ously three times a day for IDDM 2024 active Not Available Not Available Not [...] Avai lable glipizide 5 mg tablet Give 2 tablet by mouth one time a day for Constipat ion Give before meals total dose is 10 mg 2024 active Not Available Not Available Not [...] Not Available Not Available Not Avai lable Lidocaine Pain Relief 4 % topical patch Apply to R knee topically one time a day for Pain Managemen t Apply for 12 Hours in a 24 Hour period. Max dose = 3 patches. External use only. and remove per schedule 2024 active Not Available Not Available Not Avai lable tirzepatide 5 mg/0.5 mL subcutaneou s pen injector Inject 5 mg subcutane ously one time a day every Tue active Not Available Not Available Not Avai [...] Diagnosis SNOMED-CT Code Diagnosis ICD10 Code Diagnosis IMO Codes Diagnosis Note [id number] CARLENE GU NP-C [facility] [address] [place] [address] 10/04/2024 08:47:45 10/10/2024 14:07:41 Acute back pain with sciatica 041932070 M54.41 37669409 with trouble ambulating dt painadmit to PT OTtylenol for paincont oxy 5 mg q8h prnmonitor painphysio logy provider to follow Irritable bowel syndrome characterized by constipation 699085005 K58.1 555425 cont home medlnactol blas 290 mcg dailymonit or bowels Type 2 joel betes mellitus 88008367 E11.8 8146626 glipizide 5mg dailymonit or accuchecks Mixed hyperlipidemia 267 909346 E78.2 49095 cont atorvastat inlipids outpt Essential hypertension 49073143 I10 09408 cont amlodipine 5mg dailycont hydralazin e 25mg bidcont clonidine 0.1mg bidcont HCTZ 25mg dailymonit or BP and labs Gastroesop hageal reflux disease 552396316 K21.9 82346312 chroniccon t omeprazole dailymonit or ss Diverticular disease [address] finding in recent admissionc onsider outpt follow up Acquired hypothyroidism 179595792 E03.9 00509 levothyrox ine 50 mcg dailythyro id panel outpt Mood disorder 60280589 F 39 30939 cont home medsfluoxe dragan 60 mg dailyqueti apine 100 mg bidprazosi n 1 mg qhsclonaze keisha 2 mg qhsmonitor mood and affectpsyc h eval prn [id number] Daxachelo Chilel MD [facility] [address] [place] [id number] 10/09/2024 12:44:33 11/03/2024 20:38:56 Type 2 diabetes mellitus 18906096 E11.8 8178532 glipizide 5mg daily 10/03/2024 13:14 98.0 mg/dL zapdef47 (Manual) Irritable bowel syndrome characterized by constipation 867188041 K58.1 449796 outpt lnactolide 290mcg daily Acute back pain with sciatica 279205296 M54.41 02723824 PRN oxycodone 5mg tid Mixed hyperlipidemia 267 549814 E78.2 48815 high intensity atorvastat in Essential hypertension 56411683 I10 34638 bASA / amlodipine 5mg daily / hydralazin e 25mg bid / clonidine 0.1mg bid / HCTZ 25mg dailyrecor ds show use of chlorthali done 50mg as outpatient 10/09/2024 10:09 123 / 77 mmHg Lying r/arm sfdaley (Manual)10/07/2024 10:21 135 / 70 mmHg Sitting r/arm tdouglas (Manual)10/06/2024 13:14 128 / 62 mmHg Sitting l/arm crdelgado (Manual)10/06/2024 13:13 128 / 62 mmHg Sitting l/arm crdelgado (Manual)10/06/2024 00:10 116 / 70 mmHg Lying r/arm aharringto n1 (Manual)10/05/2024 16:55 124 / 74 mmHg Lying r/arm dardine (Manual)10/05/2024 12:08 122 / 76 mmHg Lying l/arm nwlgep00 (Manual)10/05/2024 05:14 99 / 51 mmHg Lying r/arm amcmillain (Manual)10/04/2024 21:46 128 / 76 mmHg Sitting l/arm Gastroesop hageal reflux disease 021090109 K21.9 69033273 maintenanc e omeprazole 4mg daily Mixed urin bessy incontinence 767330903 N39.46 123966 urge / stress History of surgery 67881 5003 Z98.963 5337674 s/p C/S, hysterctom y and T/L Diverticular disease [address] finding in recent admission Acquired hypothyroidism 611283836 E03.9 05449 levothyrox ine 50mcg daily Mood disorder 04641149 F 39 85029 fluoxetine 60mg daily / quetiapine 100mg bid / prazosin 1mg qhs / clonazepam 2mg qhsrecords indicate use of mirtazapin e 45mg po qhs [id number] CARLENE GU, SEQUINS SLINGER-C [facility] [address] [place] [id number] 10/11/2024 20:36:42 10/12/2024 09:51:57 Acute back pain with sciatica 376581969 M54.41 61493100 Pain well managedabl e to ambulate with walker to bathroomco nt PT OTtylenol for paincont oxy 5 mg q8h prnmonitor painphysio logy provider to follow Irritable bowel syndrome characterized by constipation 311636198 K58.1 286249 normal bowels herecont lnactolide 290 mcg dailyhas daily BMmonitor bowels Type 2 joel betes mellitus 96611917 E11.8 1951946 one accucheck recorded 98glipizid e 5mg dailyorder ed accuchecks bid twice weekly Essential hypertension 89373571 I10 34941 very well controlled cont amlodipine 5mg dailycont hydralazin e 25mg bidcont clonidine 0.1mg bidcont HCTZ 25mg dailymonit or BP and labs Mood disorder 39294482 F 39 30045 normal mood and affect on home med regimencon t fluoxetine 60 mg dailycont quetiapine 100 mg bidcont prazosin 1 mg qhscont clonazepam 2 mg qhsmonitor mood and affectpsyc h eval prn [id number] [place] [address] 10/12/2024 13:39:39 10/16/2024 10:05:58 Acute back pain with sciatica 660361267 M54.41 61015316 Pain well managedabl e to ambulate with walker to bathroomco nt PT OTwill sched tylenol 1000 mg tidcont oxy 5 mg q8h prnmonitor painphysio logy provider to follow Irritable bowel syndrome characterized by constipation 425458023 K58.1 262719 normal bowels herecont lnactolide 290 mcg dailyhas daily BMmonitor bowels Type 2 joel betes mellitus 79493582 E11.8 0588732 above goal 200-300 rangept is currently on high dose prednisone burstwill hold off on adjustment until prednisone is completeco nt glipizide 5 mg dailyorder ed accuchecks bid twice weekly Essential hypertension 08590015 I10 72120 very well controlled cont amlodipine 5mg dailycont hydralazin e 25mg bidcont clonidine 0.1mg bidcont HCTZ 25mg dailymonit or BP and labs Mood disorder 53039792 F 39 79014 normal mood and affect on home med regimencon t fluoxetine 60 mg dailycont quetiapine 100 mg bidcont prazosin 1 mg qhscont clonazepam 2 mg qhsmonitor mood and affectpsyc h eval prn Generalize d osteoarthritis 667054444 M15.9 1453 to right kneestarte d on prednisone burst on 10/10now pain and swelling completely resolvedwi ll sched tylenol 1000 mg tidstart lidocaine patch to right kneecont oxy 5 mg q8h prnphysiol ogy following [id number] [place] [address] 10/15/2024 10:08:43 10/18/2024 08:50:33 Generalized osteoarthritis 835767619 M15.9 1453 OA to right knee w/ pain/ swellingco mpleted prednisone burst on 10/14 with improvemen tcont sched tylenol 1000 mg tidcont lidocaine patch to right kneecont oxy 5 mg q8h prnmonitor narc usage and wean as toleratedp hysiology provider following Acute back pain with sciatica 672422492 M54.41 59159899 sciatica pain well managedabl e to ambulate with walker to bathroomco nt sched tylenol 1000 mg tidcont oxy 5 mg q8h prnmonitor painphysio logy provider to followcont PT OTmonitor progress Type 2 joel betes mellitus 89696974 E11.8 6667462 completed prednisone burst yesterday and BS remain elevatedno w well into the 300 rangeincre ase to glipizide 10 mg dailystart accuchecks tid with house ss lispro until glipizide takes affectmoni tor BS trend Essential hypertension 22308309 I10 68851 very well controlled cont amlodipine 5mg dailycont hydralazin e 25mg bidcont clonidine 0.1mg bidcont HCTZ 25mg dailymonit or BP and labs [id number] CARLENE GU, SEQUINS SLINGER-C [facility] [address] [place] [id number] 10/16/2024 10:46:42 10/18/2024 09:13:03 Generalized osteoarthritis 404409967 M15.9 1453 OA to right knee w/ pain/ swellingco mpleted prednisone burst on 10/14 with improvemen tcont sched tylenol 1000 mg tidcont lidocaine patch to right kneecont oxy 5 mg q8h prn, nursing to supplyf/u with PCPrecs to make apt with ortho Acute back pain with sciatica 518822897 M54.41 07958593 sciatica pain well managedabl e to ambulate with walker to bathroomco nt sched tylenol 1000 mg tidcont oxy 5 mg q8h prn nursing to supplyf/u with PCP Type 2 joel betes mellitus 87909269 E11.8 9322625 completed prednisone burst yesterday and BS remain elevatedno w well into the 300 rangeincre ase to glipizide 10 mg dailyf/u with PCPrepeat A1C in 3 mos Essential hypertension 44821511 I10 97375 very well controlled cont amlodipine 5mg dailycont hydralazin e 25mg bidcont clonidine 0.1mg bidcont HCTZ 25mg dailyf/u with PCP Irritable bowel syndrome characterized by constipation 781112779 K58.1 398145 cont home medlnactol blas 290 mcg dailyf/u with PCP Mixed hyperlipidemia 267 353535 E78.2 45446 cont atorvastat inf/u with PCP Gastroesop hageal reflux disease 270850497 K21.9 31254255 chroniccon t omeprazole dailyf/u with PCP Diverticular disease [address] finding in recent admissionf /u with PCP Acquired hypothyroidism 839565093 E03.9 85317 levothyrox ine 50 mcg dailythyro id panel outptf/u with PCP Mood disorder 93630627 F 39 28116 cont home medsfluoxe dragan 60 mg dailyqueti apine 100 mg bidprazosi n 1 mg qhsclonaze keisha 2 mg qhsf/u with PCP Health Concerns Section Related Observation LastModified by Organization Detai ls LastModified Time None Recorded Concern Status LastModified by Organization Details LastModified Time None Recorded Advance Directives Directive None Recorded Payers Insurance Date Sequence Insurance Name Policy Number Policy Murphy Covered Member ID Murphy Member ID Guarantor Name 11/03/2024 1 [facility] - DOS ON OR AFTER 2022 - MEDICARE ADVANTAGE [place] (MEDICARE REPLACEMENT/ADV ANTAGE - PPO) Wen Moran [id number] Wen Moran Notes Date Note Type Note Provider Name and Address Organization Details Recorded Time 10/09/2024 text/html ROS as noted in the HPI 69yo F with metabolic syndrome, lumbar spondylosis admitted to [facility] after presenting to the [facility] (September 28-October 03) for acute severe RIGHT sciatica-type pain. Patient lives alone and unable to ambulate safely despite use of narcotics. Plain lumbar film remarkable for spondylosis without acute process. CT pelvis unremarkable other than findings of diverticulosis. Comorbidities: HTN, CKD 4, WILLETT / GERD / idiopathic constipation Allergies: No Known Allergies Daxa Chilel MD [address] [facility], [address], [place], [address], [facility] [employer] [facility] 10/31/2024 09:52:56 10/10/2024 text/html Pt is a 69 yo female being seen for an acute rounding visit. She presented to the ED for severe right sided sciatica pain despite narcotic use. Imaging showed spondylosis without acute process. Because pt lives alone and unable to ambulate she was seen by PT with recs for STR. Pt seen today. Family at bedside. She is having pain,, states 5/10, but is controlled with current regimen. Pt ambulating with walker to the bathroom and around the room. No acute concerns per nursing. She continues to work with therapy. PMH HTN, CKD 4, WILLETT / GERD / idiopathic constipation QUINTIN KLINE [address] [facility] [address], [place], [address], [facility] [employer] [facility] 10/11/2024 20:38:41 10/12/2024 text/html Pt is a 69 yo female being seen for an acute rounding visit. She presented to the ED for severe right sided sciatica pain despite narcotic use. Imaging showed spondylosis without acute process. Because pt lives alone and unable to ambulate she was seen by PT with recs for STR. Pt seen today. Pt working with therapy, saud. On review her pain has been well controlled, reportedly gone since starting prednisone burst on 10/10. yesterday with therapy she had 0/10 pain after PT session. Her BP is well controlled. Sugars are above goal ranging 200-300 on glipizide. No other acute concerns. PMH HTN, CKD 4, WILLETT / GERD / idiopathic constipation QUINTIN KLINE [address] [facility], [address], [place], [address], [facility] [employer] 10/12/2024 13:54:27 10/15/2024 text/html Pt is a 69 yo female being seen for an acute rounding visit. She presented to the ED for severe right sided sciatica pain despite narcotic use. Imaging showed spondylosis without acute process. Because pt lives alone and unable to ambulate she was seen by PT with recs for STR. Was having severe right knee pain and swelling. She completed prednisone burst for suspected OA flare that is now resolved. Participating with therapy, ambulating to . Her blood sugars have been uncontrolled on oral glipizide, trending up to 380 now off steroids. Agreeable for ss insulin. She has no pain and no complaints. Eating and drinking normally. [facility] HTN, CKD 4, WILLETT / GERD / idiopathic constipation QUINTIN KLINE [address] [facility], [address], [place], [address], [facility] [employer] [facility] 10/15/2024 12:59:38 10/16/2024 text/html Pt is a 69 yo female being seen for discharge. She presented to the ED for severe right sided sciatica pain despite narcotic use. Imaging showed spondylosis without acute process. Because pt lives alone and unable to ambulate she was seen by PT with recs for STR. Seeing pt for discharge today. Was having severe right knee pain and swelling. She completed prednisone burst for suspected OA flare that is now resolved. Participating with therapy, ambulating to BR with walker. Her blood sugars have been uncontrolled on oral glipizide, trending up to 380 now off steroids. Increased glipizide to 10 mg daily. She has no pain and no complaints. Medically cleared for discharge home with meds and services [facility] HTN, CKD 4, WILLETT / GERD / idiopathic constipation QUINTIN KLINE [address] [facility] [place], [address], [facility] [employer] 10/17/2024 07:35:46 OBGyn Episode No OBEpisode recorded.
--- OUTSIDE RECORDS SUMMARY | 2025-01-17 14:50 | XMS_ITS | Encounter Summary ---
Author Organization [employer] Address [address] [place] [address] Care Team Providers Care Educational Aide Name Role Phone Kathryn Jarquin MD Primary Care Provider [phone] Denis Rodgers PharmD Unavailable [phone] Encounter Details Date Type Department Care Team (Late st Contact Info) Description 01/14/2023 Orders Only [facility] MEDICINE [address] [place] [address] Kathryn Jarquin MD [address] [place] [address] Stage 3b chronic kidney disease (CMS/HCC) (Primary [...] 3:00 PM EDT Medication Management [facility] [address] [place] [address] Denis Rodgers, NamitaD [address] [place] [address] 01/24/2025 10:15 AM EDT Office Visit [facility] [address] [place] [address] Kathryn Jarquin MD [address] [place] [address] 02/05/2025 3:00 PM EST Clinical Support [facility] PEDS [address] [place] [address] Rhonda Valdez, RN [address] [place] [address] 02/22/2025 1:45 PM EST Office Visit [facility] OPTOMETRY [address] [place] [address] Francesca Martinez, OD [address] [place] [address] Scheduled Orders Name Type Priority Associated Diagnoses [...] (HCC) documented in this encounter Care Teams Educational Aide Relationship Specialty Start Date End Date Kathryn Jarquin MD [address] [place] [address] PCP - General Family Medicine 04/04/18 Denis Rodgers, PharmD [address] [place] [address] Pharmacist Internal Medicine 10/22/22 documented as of this encounter
== END 2025-01-17 12:03 | disposition home or self-care (01) ==
LOC: HO.HOS 11:30
PROVIDERS: PCP Family Medicine; Visit Provider Orthopaedic Surgery
DX: M25.561 Pain in right knee (principal)
CPT/HCPCS: 99024

== ENCOUNTER → 2025-01-17 11:29 | Outpatient (BNVA) | payer OTHER, SELFPAY | PROVIDERS: PCP Family Medicine; Visit Provider Orthopaedic Surgery | DX: M25.561 Pain in right knee (principal); Z98.890 Other specified postprocedural states | CPT/HCPCS: 99212 ==

== ENCOUNTER 2025-01-23 09:53 | Outpatient (AMB) | payer OTHER, SELFPAY ==
[2025-01-23 10:37] VITALS: BP 130/76; BMI 38.0
--- NOTE | 2025-01-23 10:37 | A.OFFVIS_ITS ---
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 Complaining of vulvovaginal itching last 3 days after initiating antibiotic treatment after dental procedure Last Pap/HPV was many years ago, the patient is status post hysterectomy for benign disease with no history of abnormal Pap smears Last Mammogram was BI-RADS 1 in 11/26 Last Colonoscopy was in 04/27, the recommendation to repeat in 5 years Last DEXA scan was in 09/24 ON LICENSE OF [facility] Medical History Hypothyroidism Anemia Right knee pain Asthma Back pain Arthritis Dysuria Chronic kidney disease Diabetes 1.5, managed as type 2 HTN (hypertension) KIRSTIE (stress urinary incontinence, female) Urge incontinence Chronic idiopathic constipation GERD (gastroesophageal reflux disease) Irritable bowel syndrome with constipation Surgical History Hx of hernia repair H/O tubal ligation Hx of section H/O: hysterectomy History of esophagogastroduodenoscopy (EGD) Hx of colonoscopy (04/2023) Family History Father Family hx of prostate cancer Cancer Brother Cancer Mother HTN (hypertension) Maternal Aunt Skin cancer, Onset Age: 59 Social History Household Members: Family and None Housing: Apartment Are you a primary hearing healthcare practitioner to a significant other at home: No Do you presently have visiting nurse or other home services: Yes ([employer] 2 x day) Alcohol intake: never Patient Tobacco Use Status: Never used Tobacco e-Cigarette/Vaping Use: Never Used Current occupational status: disabled Female Reproductive History Menstrual Age of Menarche: 12 Menopause type: surgical (hysterectomy) Date of Mammogram: 11/07/24 Review of Systems Const All systems reviewed & are unremarkable except as noted in HPI and below Card Reports as per HPI and Reports no additional complaints Resp Reports as per HPI and Reports no additional complaints GI Reports as per HPI and Reports no additional complaints Reports as per HPI Physical Exam Vital Signs: Last Vital Signs BP 130/76 01/23/25 10:37 BMI result Body Mass Index 38.0 Const General: cooperative, healthy appearing and comfortable General: Yes bladder normal to palpation External Female Exam: No lesion Speculum Exam - Vagina: normal appearance of the vagina, normal vaginal discharge and not erythematous Speculum Exam - Cervix: Cervix absent Bimanual exam- vagina & uterus: bladder normal to palpation and uterus absent Bimanual Exam- Adnexa, other: Other (No masses detected) Assessment & Plan Assessment & Plan (1) Well woman exam: Code(s): Z01.419 - Encounter for gynecological examination (general) (routine) without abnormal findings Category: Medical Plan: Co testing not indicated since the patient is status post hysterectomy for benign reasons with no history of abnormal Pap smears last 25 years, adequately screen for the last 10 years with no history of immunosuppression. Counseled the patient about the recommended dietary allowance of 1200 mg of Calcium & 800 IU of vitamin D. Instructions given the patient to schedule next screening Mammogram in 11/27. Will order DEXA scan . The patient was instructed to perform monthly self-breast exams and to schedule a 2 week DEXA scan follow-up appointment and an annual exam in a year; All questions answered and the patient verbalized understanding. (2) Vulvovaginitis: Code(s): N76.0 - Acute vaginitis Category: Medical Plan: Bacterial Vaginosis panel taken, Terazol 0.8% q.h.s. for 3 days was sent to the patient's pharmacy. The patient was instructed to call if symptoms don't improve in 48 hours. Orders: Orders XR DEXA axial skeleton Today Z78.0 - Asymptomatic menopausal state Medications: New terconazole 0.8% 1 appful vaginal BEDTIME 20 grams 0RF 3 days Coding Level of Care Code Est Pt Level 3 (67673) Est Pt Prev Care >65y(61522) Diagnoses Well woman exam Z01.419 Vulvovaginitis N76.0
--- OUTSIDE RECORDS SUMMARY | 2025-01-23 11:51 | XMS_ITS | Clinical Summary ---
Author Organization [employer] Address [address] [facility] [address] [place] [address] Care Team Providers Care Quality Audit Representative Name Role Phone Kathryn Jarquin MD Primary Care Provider [phone] Denis Rodgers PharmD Unavailable [phone] Allergies No known active allergies Medications * [...] until medical assistance becomes available. 2 each 2024 Active QUEtiapine XR (SEROquel XR) 200 MG [...] each Active Blood Glucose Monitoring Suppl (FreeStyle Buhl Lite) w/Device kit Use to test blood sugar 2 times daily 1 kit Active insulin degludec (Tresiba FlexTouch) 100 UNIT/ML injection Administer 10 units subcutaneously once daily 3 mL Active acetaminophen (Tylenol Extra Strength) 500 MG tablet Take 2 tablets (1,000 mg) by mouth every 8 (eight) hours if needed for mild pain or moderate pain. 60 tablet 2 Active glucose 4 g chewable tabletIndicatio ns:Type 2 diabetes mellitus with stage 3b chronic kidney disease, without long-term current use of insulin ([facility]) Chew 4 tablets (16 g) if needed for low blood sugar. 30 tablet 025 2025 Active pen needle 32G x 4 mm miscIndications :Type 2 diabetes mellitus with stage 3b chronic kidney disease, without long-term current use of insulin ([facility]) Use daily with insulin 100 each 025 2025 Active atorvastatin (Lipitor) 80 MG tablet TAKE 1 TABLET BY MOUTH AT BEDTIME 90 tablet 3 Active Aspirin EC Adult Low Dose 81 MG EC tablet TAKE 1 TABLET BY MOUTH AT BEDTIME 90 tablet 3 025 Active estradiol (Estrace) 0.1 MG/GM vaginal cream INSERT 1 GRAM VAGINALLY WITH APPLICATORFUL AT BEDTIME TWICE EACH WEEK 025 Active Tirzepatide (Mounjaro) 5 MG/0.5ML solution auto-injectorIn dications:Type 2 diabetes mellitus with stage 3b chronic kidney disease, without long-term current use of insulin ([facility]) Inject 5 mg under the skin 1 (one) time per week. 2 mL 5 025 Active Continuous Glucose Beam Carrier Hauler Pusher (FreeStyle Godfrey 3 [place]) deviceIndicatio ns:Type 2 diabetes mellitus with stage 3b chronic kidney disease, without long-term current use of insulin ([facility]) 1 each Once per day. Use as directed for CGM 1 each 025 Active Continuous Glucose Sensor (FreeStyle Godfrey 3 Plus Sensor) miscIndications :Type 2 diabetes mellitus with stage 3b chronic kidney disease, without long-term current use of insulin ([facility]) 1 each every 15 days. Apply 1 every 15 days as directed for CGM 2 each 025 Active glucose blood (FreeStyle Precision Edi Test) test stripIndication s:Type 2 diabetes mellitus with stage 3b chronic kidney disease, without long-term current use of insulin ([facility]) Use to test blood sugar 2 times [...] January 16, 2025. 28 tablet 025 Active hydrALAZINE (Apresoline) 25 MG tablet TAKE 1 TABLET BY MOUTH TWICE DAILY IN THE MORNING AND IN THE EVENING WITH FOOD 180 tablet 2 025 Active D3-1000 25 MCG (1000 UT) capsule TAKE 1 CAPSULE BY MOUTH EVERY MORNING 90 capsule 2 025 Active levothyroxine (Synthroid, Levoxyl) 50 MCG tabletIndicatio ns:Hypothyroidi sm (acquired) TAKE 1 TABLET BY MOUTH EVERY MORNING 90 tablet 2 Active levothyroxine (Synthroid, Levoxyl) 50 MCG tabletIndicatio ns:Hypothyroidi sm (acquired) TAKE 1 TABLET BY MOUTH EVERY MORNING 90 tablet 2 2024 Discontinued D3-1000 25 MCG (1000 UT) capsule TAKE 1 CAPSULE BY MOUTH EVERY MORNING 90 capsule 2 2024 Discontinued hydrALAZINE (Apresoline) 25 MG tablet TAKE 1 TABLET BY MOUTH TWICE DAILY IN THE MORNING AND IN THE EVENING WITH FOOD 180 tablet 2 2024 Discontinued oxyCODONE (Roxicodone) 5 MG immediate release tabletIndicatio ns:Upper back pain,Chronic pain of both knees,Chronic female pelvic pain,Chronic pain syndrome TAKE 1 TABLET BY MOUTH EVERY DAY AT BEDTIME NEEDED FOR SEVERE PAIN 28 tablet 2024 Discontinued(R eorder (will not trigger notification [...] 6:33 AM EDT): - taking oxycodone under REGIONAL MEDICAL DIRECTOR agreement since Mar 2024 - evaluated by recovery coordinator and given reassurance for no gynecological abnormality - upcoming appointment with GI and pain management - continue current behavioral health service Assessment & Plan (04/05/2024 5:40 AM EST): - Takes non-prescribed oxycodone to try and relieve the pain and help her sleep - Will start at low dose oxycodone only one at bedtime; discussed about its judicious use and the importance of attending REGIONAL MEDICAL DIRECTOR appt Assessment & Plan (10/30/2022 4:06 PM EDT): - seen by urogynecologist, recovery coordinator, general surgeon, and GI - Will check [...] (08/12/2022 4:18 PM EDT): - seen by recovery coordinator, general surgeon, and GI - Will check [...] last seen in 2020 - seen by [facility] in September 2023 - check UA/ UCx - hold restarting oxybutynin due to current urinary retention - advised to reschedule appointment with urogyn Assessment & Plan (05/08/2023 12:09 PM EST): - Hx OAB, on oxybutynin, previously following with Dr. Peñaloza, last seen in 2020 - seen by [facility] in August 2022, upcoming follow-up appt - check UA/ UCx - hold restarting oxybutynin due to current urinary retention Assessment & Plan (10/30/2022 4:09 PM EDT): - Hx OAB, on oxybutynin, previously following with Dr. Peñaloza, last seen in 2020 - seen by [facility] in August 2022, upcoming follow-up appt [...] LT4 accordingly Stage 3b chronic kidney disease ([facility]/HCC) 2022 Assessment & Plan (10/29/2024 12:14 PM EDT): -following with rehabilitation consultant, last seen in May 2024 -avoid nephrotoxic drugs -no longer on metformin or ACEI/ARB -consider SGLT2i (relative contraindication due to LUTS) Assessment & Plan (08/12/2024 6:38 AM EDT): -following with rehabilitation consultant, last seen in May 2024 -avoid nephrotoxic drugs -no longer on metformin or ACEI/ARB -consider SGLT2i Assessment & Plan (04/05/2024 5:47 AM EST): -following with rehabilitation consultant, last seen in Nov 2023 -avoid nephrotoxic drugs -no longer on metformin -consider SGLT2i Assessment & Plan (05/08/2023 12:00 PM EST): -following with rehabilitation consultant -avoid nephrotoxic drugs -no longer on metformin -clarify with GI whether patient needs to be on PPI Assessment & Plan (10/30/2022 4:11 PM EDT): -follow up with rehabilitation consultant -avoid nephrotoxic drugs -adjust medication: metformin ER to 500 mg bid - lab review: 08/10/22 K 4.6; BUN 28; Scr 1.0 ; eGFR 56; Bicarb 28 Assessment & Plan (08/09/2022 11:50 AM EDT): -follow up with rehabilitation consultant -avoid nephrotoxic drugs -adjust medication: metformin ER to 500 mg bid Assessment & Plan (06/03/2022 2:31 AM EST): -refer to rehabilitation consultant -avoid nephrotoxic drugs -adjust medication: metformin [...] September 2024. S/p hysterectomy. Benign finding. -Started REGIONAL MEDICAL DIRECTOR with oxycodone 5 mg at night since Mar 2024 -Last REGIONAL MEDICAL DIRECTOR visit on 08/01/24, pill count suggested misuse. [...] & Plan (08/12/2024 6:31 AM EDT): -Started REGIONAL MEDICAL DIRECTOR with oxycodone 5 mg at night since Mar 2024 -Last REGIONAL MEDICAL DIRECTOR visit on 08/01/24, pill count suggested misuse. [...] to start oxycodone under close monitoring with REGIONAL MEDICAL DIRECTOR program; patient verbalized understanding -Discussed about increased [...] be changed to H2-hao as recommended by rehabilitation consultant Assessment & Plan (05/08/2023 12:02 PM EST): - followed by [facility] - check whether patient needs to be on PPI or can be changed to H2-hao as recommended by rehabilitation consultant Generalized anxiety disorder with panic attacks 01/23/2015 [...] mg daily Normal EGD and colonoscopy in [facility] in Jan 2013. Colonoscopy in Apr 2023 by [facility] GI, hyperplastic polyp. Repeat in 5 years. Assessment & Plan (04/05/2024 5:45 AM EST): GI: [facility], last visit in Apr 2023 Current medication: Linzess 290 mg daily Normal EGD and colonoscopy in [facility] in Jan 2013. Colonoscopy in Apr 2023 by [facility] GI, hyperplastic polyp. Repeat in 5 years. Assessment & Plan (10/30/2022 4:20 PM EDT): GI: [facility], last visit in 08/04/22 Current medication: Linzess 290 mg daily Normal EGD and colonoscopy in [facility] in Jan 2013. Anticipating another colonoscopy soon Assessment & Plan (08/12/2022 4:19 PM EDT): GI: [facility], last visit in 08/04/22 Current medication: Linzess 290 mg daily Normal EGD and colonoscopy in [facility] in Jan 2013. Anticipating another colonoscopy soon Assessment & Plan (06/03/2022 2:15 AM EST): GI: [facility], last visit in 08/11/21 Current medication: Linzess 290 mg daily Normal EGD and colonoscopy in [facility] in Jan 2013. Pt has to reschedule colonoscopy with GI Specialist Encouraged medication compliance Pt seems to have changed GI; will confirm Recurrent major depression 01/23/2015 Assessment & Plan (10/29/2024 12:15 PM EDT): -[facility] provider: [facility] -Continue current medications: clonazepam; fluoxetine; prazosin; clonidine; quetiapine Assessment & Plan (04/05/2024 5:54 AM EST): -[facility] provider: [facility] -Continue current medications: clonazepam; fluoxetine; prazosin; clonidine; quetiapine Assessment & Plan (05/08/2023 12:22 PM EST): -[facility] provider: [facility] -Continue current medications: clonazepam; fluoxetine; prazosin; clonidine; quetiapine Assessment & Plan (10/30/2022 4:18 PM EDT): -[facility] provider: [facility] -Continue current medications: clonazepam; fluoxetine; prazosin; clonidine; quetiapine Assessment & Plan (06/03/2022 2:22 AM EST): -[facility] provider: [facility] -Continue current medications: clonazepam; fluoxetine; prazosin; [...] with Denis Rodgers RPh through [facility] and rehabilitation consultant -Work on lifestyle modifications, DASH diet and increase physical activity -continue amlodipine 5 mg daily -continue chlorthalidone 25 mg daily -continue Hydralazine 25 mg BID (rehabilitation consultant seems to be unaware of medication, will [...] with Denis Rodgers RPh through [facility] and rehabilitation consultant -Work on lifestyle modifications, DASH diet and increase physical activity -continue amlodipine 5 mg daily -continue chlorthalidone 25 mg daily -continue Hydralazine 25 mg BID (rehabilitation consultant seems to be unaware of medication, will [...] - Comanaged with Denis Rodgers RPh through [facility] and rehabilitation consultant -Work on lifestyle modifications, DASH diet and increase physical activity -continue amlodipine 5 mg daily -continue chlorthalidone 12.5 mg daily -continue Hydralazine 25 mg BID (rehabilitation consultant seems to be unaware of medication, will [...] - Comanaged with Denis Rodgers RPh through [facility] and rehabilitation consultant -Work on lifestyle modifications, DASH diet and increase physical activity -continue lisinopril 20 mg daily -continue chlorthalidone 12.5 mg daily -continue Hydralazine 25 mg BID (rehabilitation consultant seems to be unaware of medication, will [...] UTI/vaginal candidiasis / UI. Last eye exam: [facility]. Nov 2023. Last foot exam: 05/02/23 Last [...] UTI/vaginal candidiasis / UI. Last eye exam: [facility]. Nov 2023. Last foot exam: 05/02/23 Last [...] Encounters Date Type Department Care Team Description 01/23/2025 Telephone [facility] [address] [place] [address] Kathryn Jarquin MD chart prep 01/21/2025 Travel 01/21/2025 Refill [facility] [address] [place] [address] Kathryn Jarquin MD Hypothyroidism (acquired) 01/07/2025 Refill [facility] [address] [place], [place] [phone] Rhonda Valdez RN Upper back pain; Chronic pain of both knees; Chronic female pelvic pain; Chronic pain syndrome 01/07/2025 Telephone [facility] [address] [place] [address] Kathryn Jarquin MD telephone call 01/04/2025 Orders Only GENERIC EXTERNAL DATA DEPARTMENT Provider, Generic External Data 12/19/2024 2:00 PM EDT Office Visit [facility] [address] [place] [phone] Dara Hayes MD Pre-operative exam (Primary Dx); Class 1 obesity with serious comorbidity and body mass index (BMI) of 33.0 to 33.9 in adult, unspecified obesity type; Type 2 diabetes mellitus with stage 3b chronic kidney disease, without long-term current use of insulin ([facility]/HCC); Stage 3b chronic kidney disease (CMS/HCC) 12/19/2024 Orders Only GENERIC EXTERNAL DATA DEPARTMENT Provider, Generic External Data 12/19/2024 Refill [facility] [address] [place] [address] Kathryn Jarquin MD Upper back pain; Chronic pain of both knees; Chronic female pelvic pain; Chronic pain syndrome 12/19/2024 Travel 12/18/2024 Telephone [facility] [place] [address] Kathryn Jarquin MD chart prep 12/17/2024 Orders Only [facility] [place] [address] Kathryn Jarquin MD Hypokalemia (Primary Dx) 12/17/2024 Results Follow-Up [facility] [place] [address] Kathryn Jarquin MD Comprehensive Metabolic Panel 12/10/2024 Travel 12/04/2024 2:30 PM EDT Clinical Support [facility] [address] [facility] [place] [address] Rhonda Valdez RN Chronic pain of both knees 12/04/2024 Telephone [facility] [place] [place] [address] Kathryn Jarquin MD Pre Op Appt request 12/04/2024 Travel 11/28/2024 Refill [facility] [place] [address] Kathryn Jarquin MD 11/15/2024 Refill [facility] [place] [address] Kathryn Jarquin MD Upper back pain; Chronic pain of both knees; Chronic female pelvic pain; Chronic pain syndrome 11/12/2024 Telephone [facility] [place] [address] Kathryn Jarquin MD 11/09/2024 Telephone [facility] [place] [address] Kathryn Jarquin MD chart prep 11/07/2024 Orders Only [facility] External Provider, [facility] 11/02/2024 Travel 11/02/2024 Patient Outreach [facility] [place] [address] Kathryn Jarquin MD Pre-visit Planning (Pre-visit planning - LVM ) 10/30/2024 Travel 10/30/2024 Telephone [facility] [address] [facility] [place] [address] Rhonda Valdez, RN REGIONAL MEDICAL DIRECTOR 10/29/2024 9:00 AM EDT Office Visit [facility] [address] [place] [address] Kathryn Jarquin MD Hypertension, unspecified type (Primary [...] whether sciatica present 10/29/2024 Travel 10/26/2024 Telephone [facility] [address] [place] [address] Kathryn Jarquin MD Chart Prep 10/23/2024 10:00 AM EDT Office Visit [facility] [address] [place], [place] [phone] Art, Nadine, OD Type 2 diabetes mellitus with retinopathy of both eyes, with long-term current use of insulin, macular edema presence unspecified, unspecified retinopathy severity ([facility]) (Primary Dx) 10/23/2024 Travel from Last 3 Months Immunizations Immunization [...] Care Team (Late st Contact Info) Description 01/24/2025 9:30 AM EDT Medication Management [facility] [address] [place] [address] Denis Rodgers, PharmD [address] [place] [address] 01/24/2025 10:15 AM EDT Office Visit [facility] [address] [place] [phone] Kathryn Jarquin MD [address] [place] [address] 02/05/2025 3:00 PM EST Clinical Support [facility] [address] [place] [address] Rhonda Valdez, DELFINA [address] [place] [address] 02/22/2025 1:45 PM EST Office Visit [facility] [address] [place] [address] Francesca Martinez, OD [address] [place] [address] Health Maintenance Due Date Last Done Comments [...] disease, without long-term current use of insulin ([facility]/HCC) POCT GLUCOSE Routine 12/19/2024 2:29 PM EDT [...] edema presence unspecified, unspecified retinopathy severity (CMS/HCC) DIABETES EYE EXAM Routine 11/18/2023 COLONOSCOPY Routine 04/15/2023 ZZZ HISTORICAL HEPATITIS C ANTIBODY RFLX Routine 04/18/2019 8:30 AM EST from Last 3 Months or Most Recently Relevant to Health Maintenance Results * (ABNORMAL) Glucose, Whole Blood (01/04/2025 7:01 AM EDT) Glucose, Whole Blood 247(H) 60 - 115 mg/dL [facility] Comment:METER #: [id number] 01/04/2025 7:01 AM EDT 01/04/2025 7:07 AM EDT us Generic External Data Provider LAB BLOOD ORDERAB LES Final Result [facility] [address] [place] [phone] * (ABNORMAL) CBC auto differential (12/21/2024 9:40 AM EDT) White Blood Count 11.5(H) 4.8 - 10.8 X10*3/uL [facility] Red Blood Count 4.52 4.20 - 5.50 X10*6/uL [facility] Hemoglobin 12.2 12.0 - 16.0 g/dl [facility] Hematocrit 37.7 37.0 - 47.0 % [facility] Mean Corpuscular Volume 83.4 80.0 - 98.0 fL [facility] Mean Corpuscular Hemoglobin 27.0 27.0 - 33.0 pg [facility] Mean Corpuscular HGB Conc 32.4 31.0 - 35.0 g/dl [facility] Red Cell Distribution Width 16.6(H) 11.0 - 16.0 % [facility] Platelet Count 284 160 - 400 X10*3/uL [facility] Mean Platelet Volume 11.5 9.4 - 12.3 fL [facility] Neutrophils Percent Auto 53.9 45 - 73 % [facility] Imm Gran Pct Auto 0.3 0.0 - 0.4 % [facility] Lymphocytes Percent Auto 38.1 20 - 40 % [facility] Monocytes Percent Auto 5.5 2 - 11 % [facility] Eosinophils Percent Auto 1.7 0 - 4 % [facility] Basophils Percent Auto 0.5 0 - 2 % [facility] NRBC Pct Auto 0.0 0.0 - 0.2 /100WBC [facility] Neutrophils Absolute Auto 6.2 2.0 - 8.3 x10*3/uL [facility] Imm Gran Abs Auto 0.04(H) 0.00 - 0.03 X10*3/uL [facility] Lymphocytes Absolute Auto 4.4 1.2 - 4.9 X10*3/uL [facility] Monocytes Absolute Auto 0.6 0.1 - 1.2 X10*3/uL [facility] Eosinophils Absolute Auto 0.2 0.0 - 0.4 X10*3/uL [facility] Basophils Absolute Auto 0.1 0.0 - 0.2 X10*3/uL [facility] NRBC Abs Auto 0.000 0.0 - 0.012 X10*3/uL [facility] Blood Venous blood specimen / Unknown 12/21/2024 9:40 AM EDT 12/21/2024 11:12 AM EDT us Dara Hayes MD LAB BLOOD ORDERABLES Final Res ult [facility] [address] [place] [phone] * (ABNORMAL) Basic Metabolic Panel (12/21/2024 9:40 AM EDT) Only the most recent of2 resultswithin the time period is included. Sodium 141 135 - 145 mmol/L [facility] Potassium 3.7 3.3 - 5.1 mmol/L [facility] Chloride 104 96 - 108 mmol/L [facility] Carbon Dioxide 26 22 - 29 mmol/L [facility] Anion Gap 15 12 - 20 [facility] Urea Nitrogen (BUN) 26(H) 9 - 16 mg/dL [facility] Creatinine, Serum 1.54(H) 0.5 - 1.4 mg/dL [facility] Estimated Glomerular Filt Rate 34 [facility] Comment:Chronic Kidney Disea se: Estimated GFR < 60 mL/min/[id number] Kidney Disease: Estimated GFR < 15 mL/min/1.73m2 Glucose 181(H) 60 - 115 mg/dL [facility] Calcium 9.6 8.4 - 10.2 mg/dL [facility] Blood Venous blood specimen / Unknown 12/21/2024 9:40 AM EDT 12/21/2024 11:19 AM EDT Kathryn Jarquin MD LAB BLOOD ORDERABLES Final Resul t [facility] [address] [place] [phone] * ECG 12 lead (12/21/2024 8:11 AM EDT) Narrative Dara Hayes MD - 12/21/2024 8:11 AM EDT NSR, heart rate 71, no ST-T segment elevation Dara Hayes MD ECG ORDERABLES Final Result * (ABNORMAL) POCT Hgb A1c (12/19/2024 2:48 PM EDT) Hemoglobin A1C 7.4(A) 4.0 - 5.7 % QC Media Lot # [id number] Lot# Expiration Date Blood 12/19/2024 2:48 PM EDT Result [facility] Dara Hayes MD POINT OF CARE TEST [...] 1:34 PM EDT) Triglycerides 181(H) <150 mg/dL [facility] Comment:Slight Lipemia.Brown able Triglyceride: less than 150 mg/dLBorderline High Triglyceride 150-199 mg/dLHigh Triglyceride: 200-499 mg/dLVery High Triglyceride: greater than or equal to 5OO mg/dL Cholesterol 237(H) <200 mg/dL [facility] Comment:Desirable Cholestero l: less than 200 mg/dLBorderline High Cholesterol: 200-239 mg/dLHigh Cholesterol: greater than 239 mg/dL LDL Cholesterol Calculated 147(H) <100 mg/dL [facility] Comment:Desirable LDL: less than 100 mg/dLNear Optimal/Above Optimal LDL: 110- 129 mg/dLBorderline High LDL: 130-159 mg/dLHigh LDL: 160-189 mg/dLVery High LDL: greater than or equal to 190 mg/dL HDL Cholesterol 54 >40 mg/dL [facility] Comment:Desirable HDL: great er than 40 mg/dL Note: This HDL assay may give artificially low results in patients with liver disease. Blood 12/19/2024 1:34 PM EDT 12/19/2024 4:03 PM EDT Kathryn Jarquin MD LAB BLOOD ORDERABLES Final Resul t Performing Organization Address City/[facility] [address]/ZIP Co de Phone Number [facility] [address] [place] [phone] * Magnesium (12/19/2024 1:34 PM EDT) Magnesium 1.7 1.6 - 2.6 mg/dL [facility] Blood Venous blood specimen / Unknown 12/19/2024 1:34 PM EDT 12/19/2024 4:03 PM EDT Kathryn Jarquin MD LAB BLOOD ORDERABLES Final Resul t Performing Organization Address City/[facility] [address]/ZIP Co de Phone Number [facility] [address] [place] [phone] * (ABNORMAL) Comprehensive Metabolic Panel (12/17/2024 8:16 AM EDT) Pathologist [facility] Sodium 141 135 - 145 mmol/L [facility] Potassium 3.2(L) 3.3 - 5.1 mmol/L [facility] Chloride 103 96 - 108 mmol/L [facility] Carbon Dioxide 24 22 - 29 mmol/L [facility] Anion Gap 17 12 - 20 [facility] Urea Nitrogen (BUN) 24(H) 9 - 16 mg/dL [facility] Creatinine, Serum 1.41(H) 0.5 - 1.4 mg/dL [facility] Estimated Glomerular Filt Rate 37 [facility] Comment:Chronic Kidney Disea se: Estimated GFR < 60 mL/min/[id number] Kidney Disease: Estimated GFR < 15 mL/min/1.73m2 Glucose 179(H) 60 - 115 mg/dL [facility] Calcium 9.5 8.4 - 10.2 mg/dL [facility] Bilirubin, Total 0.4 0.0 - 1.0 mg/dL [facility] Aspartate Amino Transferase 17 5 - 31 U/L [facility] Alanine Aminotransferase 8 0 - 31 U/L [facility] Total Protein 7.4 6.5 - 8.0 g/dL [facility] Albumin Level 4.4 3.5 - 5.0 g/dL [facility] Alkaline Phosphatase 125(H) 39 - 117 U/L [facility] Blood Venous blood specimen / Unknown 12/17/2024 8:16 AM EDT 12/17/2024 11:04 AM EDT us Kathryn Jarquin MD LAB BLOOD ORDERABLES Final Resul t [facility] [address] [place] [phone] * (ABNORMAL) POCT FLORENCIA-14 Urine Drug [...] 2:31 PM EDT Internal Pass Control Lot# [id number] Exp: 02-01-26 Kathryn Jarquin MD POINT OF CARE TEST ENTER/EDIT OR DERABLES Final Result * BI Mammogram Screening Tomosynthesis Bilateral (11/07/2024 11:36 AM EDT) Anatomical Region Laterality Modality Breast Bilateral Mammography 11/07/2024 11:3 6 AM EDT Narrative 11/17/2024 6:20 PM EDT [facility] [address] [place] [address] Mammography Report Signed Patient: Wen Moran MR#: [id number] : 1955 Acct:[id number] Age/Sex: 69 / F ADM Date: 11/07/24 Loc: [facility] Attending Dr: Kathryn Jarquin MD Ordering Physician: Jaylen Cotton MD Results: 1Negativ e Date of Service: 11/07/24 Follow Up: 1 [facility] From [facility] Mamm[facility] Procedure(s): MM tomosynthesis screening BI Accession Number(s): [id number] cc: Kathryn Jarquin MD; Jaylen Cotton MD [...] 11/17/24 1817 DD/ 1136 TD/TT: 11/07/24 1150 [employer]: Procedure Note Donotuseinterpreter, Image - [facility]17[facility] [address] [place], [place] [address] Mammography Report Signed Patient: Devin Moran#: [id number] : 1955cct:[id number] Age/Sex: 69 / FADM Date: 11/07/24 Loc: [facility] Attending Dr: Kathryn Jarquin MD Ordering Physician: Jaylen Cotton MDResults: 1Negativ e Date of Service: 11/07/24Follow Up: 1 Year From Orig inal Mammogram Procedure(s): MM tomosynthesis screening BI Accession Number(s): [id number] cc: Kathryn Jarquin MD; Jaylen Cotton MD [...] 11/17/24 1817 DD/ 1136 TD/TT: 11/07/24 1150 [employer] [place]: [facility] External Provider IMG BI PROCEDURES Edited [...] to better assess her ocular health. Nadine Vuongadelfo OD OPHTH PHOTOGRAPHY Final Resul t * Diabetes Eye Exam (11/18/2023) [facility] Eye Exam Normal Normal 11/18/2023 Historical Provider HEALTH MAINTENANCE Final Result * Colonoscopy (04/15/2023) [facility] Colonoscopy Normal Normal Narrative Crista Chayo - 04/15/2023 Recommended 5 year follow up see external hospital admission note on 04/15/2023 Historical Provider HEALTH MAINTENANCE Final Result * HEPATITIS C ANTIBODY RFLX (04/18/2019 8:30 AM EST) [facility] HEPATITIS C ANTIBODY NONREACTIVE NONREACTIVE [facility] Comment: Antibodies to HCV not detected; does not exclude early acute HCV infection. 04/18/2019 8:30 AM EST Kathryn Jarquin MD HISTORICAL/NON ORDERABLE LABS Fi nal Result [facility] [address] from Last 3 Months or Most Recently Relevant to Health Maintenance Insurance [facility] OPTIONS (HMO D-SNP) [place] [id number] [facility] Care Teams Quality Audit Representative Relationship Specialty Start Date End Date Kathryn Jarquin MD [address] [place] [address] PCP - General Family Medicine 04/04/18 Denis Rodgers, PharmD [address] [place] [address] Pharmacist Internal Medicine 10/22/22
--- OUTSIDE RECORDS SUMMARY | 2025-01-23 11:51 | XMS_ITS | Encounter Summary ---
Author Organization [employer] Address [address] [facility] [address] 7t [place] [address] Care Team Providers Care House Detective Name Role Phone Kathryn Jarquin MD Primary Care Provider [phone] Denis Rodgers PharmD Unavailable [phone] Encounter Details Date Type Department Care Team (Late st Contact Info) Description 03/26/2024 Abstract [facility] 230 [place] [address] Mya Garvey [place] Social History Tobacco Use [...] Description 01/24/2025 9:30 AM EDT Medication Management [facility] [address] [place] [address] Denis Rodgers, PharmD 230 [place] [address] 01/24/2025 10:15 AM EDT Office Visit [facility] [address] [place] [address] Kathryn Jarquin MD 230 [place] [address] 02/05/2025 3:00 PM EST Clinical Support [facility] MED [facility] PEDS 505 [place] [address] Rhonda Valdez, DELFINA 505 [place] [address] 02/22/2025 1:45 PM EST Office Visit [facility] OPTOMETRY [address] [place] [address] Francesca Martinez OD 267 [place] [address] documented as of this encounter Goals Goal [...] on filedocumented in this encounter Care Teams House Detective Relationship Specialty Start Date End Date Kathryn Jarquin MD 230 [place] [address] PCP - General Family Medicine 04/04/18 Denis Rodgers, PharmD 230 [place] [address] Pharmacist Internal Medicine 10/22/22 documented as of this encounter
--- OUTSIDE RECORDS SUMMARY | 2025-01-23 11:51 | XMS_ITS | Encounter Summary ---
Author Organization [employer] Address [address] [facility] [address] 7t [place] [address] Care Team Providers Care Bed Machine Operator Name Role Phone Kathryn Jarquin MD Primary Care Provider [phone] Denis Rodgers PharmD Unavailable Encounter Details Date Type Department Care Team (Latest Contact Info) Description 01/21/2025 Travel Social History Tobacco Use Types Packs/Day [...] Description 01/24/2025 9:30 [address] EDT [address] [facility] 230 [place] [address] Denis Rodgers, PharmD 230 [place] [address] 01/24/2025 10:15 AM EDT Office [facility] [address] [place] [address] Kathryn Jarquin MD 230 [place] [address] 02/05/2025 3:00 PM EST Clinical Support [facility] MED [facility] PEDS 505 [place] [address] Rhonda Valdez, RN 505 [place] [address] 02/22/2025 1:45 PM EST Office Visit [facility] OPTOMETRY [address] [place] [address] Francesca Martinez, OD 267 [place] [address] documented as of this encounter Goals Goal [...] documented as of this encounter Care Teams Bed Machine Operator Relationship Specialty Start Date End Date Kathryn Jarquin MD 230 [place] [address] PCP - General Family Medicine 04/04/18 Denis Rodgers, NamitaD 230 [place] [address] Pharmacist Internal Medicine 10/22/22 documented as of this encounter
--- OUTSIDE RECORDS SUMMARY | 2025-01-23 11:52 | XMS_ITS | Encounter Summary ---
Author Organization [employer] Address 75 [facility] 7t [place] [address] Care Team Providers Care Geodetic Surveyor Name Role Phone Kathryn Jarquin MD Primary Care Provider [phone] Denis Rodgers PharmD Unavailable [phone] Encounter Details Date Type Department Care Team ([facility] st Contact Info) Description 04/02/2024 Orders Only [facility] 230 [place] [address] Kathryn Jarquin MD 230 [place], [place] [phone] Social History Tobacco Use Types Packs/Day Years [...] Description 01/24/2025 9:30 AM EDT Medication Management [facility] [address] [place] [phone] Denis Rodgers, PharmD 230 [place] [address] 01/24/2025 10:15 AM EDT Office Visit [facility] [address] [place] [address] Kathryn Jarquin MD 230 [place] [address] 02/05/2025 3:00 PM EST Clinical Support [facility] 505 [place] [address] Rhonda Valdez, DELFINA 505 [place] [address] 02/22/2025 1:45 PM EST Office Visit [facility] OPTOMETRY 267 [place], [place] [phone] Francesca Martinez OD 267 [place] [address] documented as of this encounter Goals Goal [...] documented as of this encounter Care Teams Geodetic Surveyor Relationship Specialty Start Date End Date Kathryn Jarquin MD 230 [place] [address] PCP - General Family Medicine 04/04/18 Denis Rodgers, PharmD 230 [place] [address] Pharmacist Internal Medicine 10/22/22 documented as of this encounter
--- OUTSIDE RECORDS SUMMARY | 2025-01-23 11:52 | XMS_ITS | Encounter Summary ---
Author Organization [employer] Address 75 [facility] 7t [place] [address] Care Team Providers Care Commercial Lines Account Manager Name Role Phone Kathryn Jarquin MD Primary Care Provider [phone] Denis Rodgers PharmD Unavailable [phone] Encounter Details Date Type Department Care Team (Late st Contact Info) Description 01/14/2023 Orders Only [facility] 230 [place] [address] Kathryn Jarquin MD 230 [place] [address] Stage 3b chronic kidney disease (CMS/HCC) (Primary [...] Description 01/24/2025 9:30 AM EDT Medication Management [facility] [address] [place] [address] Denis Rodgers, Swapnil 230 [place] [address] 01/24/2025 10:15 AM EDT Office Visit [facility] [address] [place] [address] Kathryn Jarquin MD 230 [place] [address] 02/05/2025 3:00 PM EST Clinical Support [facility] 505 [place], [place] [address] Rhonda Valdez, RN 505 [place] [address] 02/22/2025 1:45 PM EST Office Visit [facility] OPTOMETRY 267 [place] [address] Francesca Martinez, OD 267 [place] [address] documented as of this encounter Goals Goal Patient Goal Type Associated Problems Recent Progress Patient-Stated? Author Blood Pressure < 140/90 Blood Pressure 122/64( 025 2:28 PM EDT) No Denis Rodgers, PharmD documented as of this encounter Visit Diagnoses Diagnosis Stage 3b chronic kidney disease (CMS/HCC) ([facility])- Primary Essential hypertension Unspecified essential hypertension Type 2 diabetes mellitus with hyperglycemia, without long-term current use of insulin (HCC) documented in this encounter Care Teams Commercial Lines Account Manager Relationship Specialty Start Date End Date Kathryn Jarquin MD 230 [place], [place] [phone] PCP - General Family Medicine 04/04/18 Denis Rodgers PharmD 230 [place] [address] Pharmacist Internal Medicine 10/22/22 documented as of this encounter
--- OUTSIDE RECORDS SUMMARY | 2025-01-23 11:52 | XMS_ITS | Encounter Summary ---
Author Organization [employer] Address 75 [facility] 7t [place] [address] Care Team Providers Care Assembler Metal Building Name Role Phone Kathryn Jarquin MD Primary Care Provider [phone] Denis Rodgers PharmD Unavailable [phone] Reason for Visit * Reason Onset Date Comments Results 12/17/2024 Encounter Details Date Type Department Care Team (Latest Contact Info) Description 12/17/2024 Results Follow-Up [facility] 230 [place] [address] Kathryn Jarquin MD 230 [place] [address] Comprehensive Metabolic Panel Social History Tobacco Use Types Packs/Day Years Used Date Smoking Tobacco: Former Cigarettes Passive Smoke Exposure: Past Smokeless Tobacco: Never Depression Answer Date Recorded Patient Health Questionnaire-9 Score 12 03/29/2024 Patient Health Questionnaire-9 Score 12 03/29/2024 Last PHQ-9: Questionnaire Data Not on file 1 05/30/2023 Housing Stability Answer Date Recorded What is your housing situation today? I have ksinny lepe 08/07/[address] you [...] EDT T/C placed to pt utilizing S #[id number] regarding below results and POC. Informed of [...] Upcoming Encounters Date Type Department Care Team ([facility] st Contact Info) Description 01/24/2025 9:30 AM EDT Medication Management [facility] MEDICINE [address] [place] [phone] Denis Rodgers, PharmMirela 230 [place] [address] 01/24/2025 10:15 AM EDT Office Visit [facility] [address] [place] [address] Kathryn Jarquin MD 230 [place] [address] 02/05/2025 3:00 PM EST Clinical Support [facility] MED [facility] PEDS 505 [place] [address] Rhonda Valdez, DELFINA 505 [place] [address] 02/22/2025 1:45 PM EST Office Visit [facility] OPTOMETRY 267 [place] [address] Francesca Martinez, OD 267 [place] [address] documented as of this encounter Goals Goal [...] documented as of this encounter Care Teams Assembler Metal Building Relationship Specialty Start Date End Date Kathryn Jarquin MD 230 [place], [place] [phone] PCP - General Family Medicine 04/04/18 Denis Rodgers, NamitaD 230 [place] [address] Pharmacist Internal Medicine 10/22/22 documented as of this encounter
--- OUTSIDE RECORDS SUMMARY | 2025-01-23 11:52 | XMS_ITS | Encounter Summary ---
Author Organization [email or web address] Address 75 [facility] 7t [place] [address] Care Team Providers Care Sponge Diver Name Role Phone Kathryn Jarquin MD Primary Care Provider [phone] Denis Rodgers PharmD Unavailable [phone] Reason for Visit * Reason Onset Date Comments Med Refill 09/24/2024 Encounter Details Date Type Department Care Team (Late st Contact Info) Description 09/24/2024 Telephone [facility] MED[facility]INE 230 [place] [address] Kathryn Jarquin MD 230 [place], [place] [phone] Med Refill Social History Tobacco Use Types [...] immediate release tablet To be sent to: [facility] - [place], [place] - [address] [place] [address] documented in this encounter Plan of Treatment Upcoming Encounters Date Type Department Care Team ([facility] st Contact Info) Description 01/24/2025 9:30 AM EDT Medication Management [facility] MED[facility]INE [address] [place] [address] Denis Rodgers, PharmD 230 [place] [address] 01/24/2025 10:15 AM EDT Office Visit [facility] MED[facility]INE [address] [place] [address] Kathryn Jarquin MD 230 [place] [address] 02/05/2025 3:00 PM EST Clinical Support [facility] MED [facility] PED[facility] 505 [place] [address] Rhonda Valdez, DELFINA 505 [place] [address] 02/22/2025 1:45 PM EST Office Visit [facility] OPTOMETRY [address] [place] [address] Francesca Martinez, OD [address] [place] [address] documented as of this encounter Goals Goal [...] documented as of this encounter Care Teams Sponge Diver Relationship Specialty Start Date End Date Kathryn Jarquin MD 230 [place] [address] PCP - General Family Medicine 04/04/18 Denis Rodgers, PharmD 230 [place] [address] Pharmacist Internal Medicine 10/22/22 documented as of this encounter
--- OUTSIDE RECORDS SUMMARY | 2025-01-23 11:52 | XMS_ITS | Encounter Summary ---
Author Organization [employer] Address 75 [facility] 7t [place] [address] Care Team Providers Care Data Security Consultant Name Role Phone Kathryn Jarquin MD Primary Care Provider [phone] Denis Rodgers PharmD Unavailable [phone] Reason for Visit * Reason Comments Med Refill Encounter Details Date Type Department Care Team ([facility] st Contact Info) Description 05/28/2024 Refill [facility] 230 [place], [place] [phone] Kathryn Jarquin MD 230 [place] [address] Upper back pain; Chronic pain of both [...] Upcoming Encounters Date Type Department Care Team ([facility] Contact Info) Description 01/24/2025 9:30 AM EDT Medication Management [facility] [address] [place] [address] Denis Rodgers, PharmD 230 [place] [address] 01/24/2025 10:15 AM EDT Office Visit [facility] [address] [place] [address] Ktahryn Jarquin MD 230 [place] [address] 02/05/2025 3:00 PM EST Clinical Support [facility] MED [facility] PEDS 505 [place] [address] Rhonda Valdez, RN 505 [place] [address] 02/22/2025 1:45 PM EST Office Visit [facility] OPTOMETRY 267 [place] [address] Francesca Martinez, OD 267 [place] [address] documented as of this encounter Goals Goal [...] documented as of this encounter Care Teams Data Security Consultant Relationship Specialty Start Date End Date Kathryn Jarquin MD 230 [place] [address] PCP - General Family Medicine 04/04/18 Denis Rodgers, PharmD 230 [place] [address] Pharmacist Internal Medicine 10/22/22 documented as of this encounter
--- OUTSIDE RECORDS SUMMARY | 2025-01-23 11:52 | XMS_ITS | Encounter Summary ---
Author Organization [employer] Address 75 [facility] 7t [place] [address] Care Team Providers Care Ton Container Shipper Name Role Phone Kathryn Jarquin MD Primary Care Provider [phone] Denis Rodgers PharmD Unavailable [phone] Encounter Details Date Type Department Care Team (Late st Contact Info) Description 01/14/2023 Orders Only [facility]INE 230 [place] [address] Kathryn Jarquin MD 230 [place] [address] Stage 3b chronic kidney disease (CMS/HCC) (Primary [...] Description 01/24/2025 9:30 AM EDT Medication Management [facility]INE [address] [place] [address] Denis Rodgers, NamitaD [address] [place] [address] 01/24/2025 10:15 AM EDT Office Visit [facility] MED[facility] [address] [place] [address] Kathryn Jarquin MD 230 [place] [address] 02/05/2025 3:00 PM EST Clinical Support [facility] MED [facility] PEDS 505 [place] [address] Rhonda Valdez, RN 505 [place] [address] 02/22/2025 1:45 PM EST Office Visit [facility] OPTOMETRY 267 [place] [address] Francesca Martinez, OD 267 [place] [address] Scheduled Orders Name Type Priority Associated Diagnoses [...] (HCC) documented in this encounter Care Teams Ton Container Shipper Relationship Specialty Start Date End Date Kathryn Jarquin MD [address] [place] [address] PCP - General Family Medicine 04/04/18 Denis Rodgers, PharmD [address] [place] [address] Pharmacist Internal Medicine 10/22/22 documented as of this encounter
--- OUTSIDE RECORDS SUMMARY | 2025-01-23 11:52 | XMS_ITS | Encounter Summary ---
Author Organization [employer] Address 75 [facility] 7t [place] [address] Care Team Providers Care Spare Parts Clerk Name Role Phone Kathryn Jarquin MD Primary Care Provider [phone] Denis Rodgers PharmD Unavailable [phone] Reason for Visit * Reason Onset Date Comments Nurse Triage 09/24/2024 Encounter Details Date Type Department Care Team ([facility] st Contact Info) Description 09/24/2024 Telephone [facility]INE [address] [place] [address] Kathryn Jarquin MD 230 [place], [place] [phone] Nurse Triage Social History Tobacco Use Types [...] RN - 09/24/2024 2:53 PM EDT No electric utility lineworker needed as this bid writer speaks Bolivian. Call returned to Wen Moran to triage below at [phone]. Reports having chronic pain that is using Oxycodone for. Pt was looking for status of Rx. Advised was queued to [facility] nurse for MASSPAT review and then to [...] Reason: Abdominal pain Please contact pt at [phone]. (Bolivian Speaker) documented in this encounter Plan of Treatment Upcoming Encounters Date Type Department Care Team ([facility] st Contact Info) Description 01/24/2025 9:30 AM EDT Medication Management [facility] [address] [place] [address] Denis Rodgers, PharmD 230 [place] [address] 01/24/2025 10:15 AM EDT Office Visit [facility] [address] [place] [address] Kathryn Jarquin MD 230 [place] [address] 02/05/2025 3:00 PM EST Clinical Support [facility] MED [facility] PEDS 505 [place] [address] Rhonda Valdez, RN 505 [place] [address] 02/22/2025 1:45 PM EST Office Visit [facility] OPTOMETRY 267 [place] [address] Francesca Martinez, OD 267 [place] [address] documented as of this encounter Goals Goal [...] documented as of this encounter Care Teams Spare Parts Clerk Relationship Specialty Start Date End Date Kathryn Jarquin MD [address] [place] [address] PCP - General Family Medicine 04/04/18 Denis Rodgers, PharmD [address] [place] [address] Pharmacist Internal Medicine 10/22/22 documented as of this encounter
--- OUTSIDE RECORDS SUMMARY | 2025-01-23 11:52 | XMS_ITS | Data Portability ---
Author Organization [facility], Main Office Address [address] [facility], [address] [place] [address] Care Team Providers Care Cable Swager Name Role Phone [facility] ([facility]) OTHER Assessment No assessment recorded. Plan [...] By Organization Details Last Modified Time 10/09/2024 [id number] vitamin D supplemetation [email or web address] Not available 10/09/2024 13:20:17 Reason for Referral None Reported. Problems Name Problem SNOMED Code Status Onset Date Resolution Date Notes Provider Name and Address Organization Details Recorded Time Type 2 diabetes mellitus without complication 975429137 Active 2024 Not Available [facility] 16:22:55 Essential hypertension 81855948 Active 2024 Not Available [facility] 16:14:24 Gastroesophag eal reflux disease without esophagitis 319944650 Active 2024 Not Available [facility] 16:15:22 Irritable bowel syndrome characterized by constipation 575853018 Active 2024 Not Available [facility] 16:15:24 Backache 114888400 Active 2024 Not Available [facility] 16:22:56 Pain in right lower limb 998854113 Active 2024 Not Available [facility] 16:22:58 Chronic kidney disease stage 4 580947886 Active 2024 Not Available [facility] 16:20:00 Muscle weakness 27061228 Active 2024 Not Available [facility] 16:39:11 Difficulty walking 995730554 Active 2024 Not Available [facility] [...] units if Bs greater than 400 call workers compensation claims assistant provider, subcutane ously three times a day [...] ICD10 Code Diagnosis IMO Codes Diagnosis Note [id number] CARLENE GU NP-C [facility] [address] [place] [address] 10/04/2024 08:47:45 10/10/2024 14:07:41 Acute back pain with sciatica 099614873 M54.41 38482889 with trouble ambulating dt painadmit to PT OTtylenol for paincont oxy 5 mg q8h prnmonitor painphysio logy provider to follow Irritable bowel syndrome characterized by constipation 994890630 K58.1 947987 cont home medlnactol blas 290 mcg dailymonit or bowels Type 2 joel betes mellitus 34422157 E11.8 8869141 glipizide 5mg dailymonit or accuchecks Mixed hyperlipidemia 267 245947 E78.2 98686 cont atorvastat inlipids outpt Essential hypertension 65850432 I10 30281 cont amlodipine 5mg dailycont hydralazin e 25mg bidcont clonidine 0.1mg bidcont HCTZ 25mg dailymonit or BP and labs Gastroesop hageal reflux disease 721383416 K21.9 65687262 chroniccon t omeprazole dailymonit or ss Diverticular disease [address] finding in recent admissionc onsider outpt follow up Acquired hypothyroidism 013521179 E03.9 78410 levothyrox ine 50 mcg dailythyro id panel outpt Mood disorder 13537654 F 39 41755 cont home medsfluoxe dragan 60 mg dailyqueti apine 100 mg bidprazosi n 1 mg qhsclonaze keisha 2 mg qhsmonitor mood and affectpsyc h eval prn [id number] Daxachelo Chilel MD [facility] [address] [place] [address] 10/09/2024 12:44:33 11/03/2024 20:38:56 Type 2 diabetes mellitus 98990954 E11.8 8283763 glipizide 5mg daily 10/03/2024 13:14 98.0 mg/dL (Manual) Irritable bowel syndrome characterized by constipation 906237359 K58.1 796174 outpt lnactolide 290mcg daily Acute back pain with sciatica 670207020 M54.41 19622460 PRN oxycodone 5mg tid Mixed hyperlipidemia 267 249116 E78.2 79368 high intensity atorvastat in Essential hypertension 36173104 I10 15063 bASA / amlodipine 5mg daily / hydralazin [...] 12:08 122 / 76 mmHg Lying l/arm [id number] (Manual)10/05/2024 05:14 99 / 51 mmHg Lying r/arm amcmillain (Manual)10/04/2024 21:46 128 / 76 mmHg Sitting l/arm Gastroesop hageal reflux disease 705503294 K21.9 70210324 maintenanc e omeprazole 4mg daily Mixed urin bessy incontinence 031090462 N39.46 165031 urge / stress History of surgery 18910 5003 Z98.572 3608044 s/p C/S, hysterctom y and T/L Diverticular disease [address] finding in recent admission Acquired hypothyroidism 358718765 E03.9 04503 levothyrox ine 50mcg daily Mood disorder 79257041 F 39 59268 fluoxetine 60mg daily / quetiapine 100mg bid / prazosin 1mg qhs / clonazepam 2mg qhsrecords indicate use of mirtazapin e 45mg po qhs [id number] CARLENE GU, VOCATIONAL TRAINING INSTRUCTOR-C [facility] [address] [place] [address] 10/11/2024 20:36:42 10/12/2024 09:51:57 Acute back pain with sciatica 030221141 M54.41 50724651 Pain well managedabl e to ambulate with walker to bathroomco nt PT OTtylenol for paincont oxy 5 mg q8h prnmonitor painphysio logy provider to follow Irritable bowel syndrome characterized by constipation 350885039 K58.1 742800 normal bowels herecont lnactolide 290 mcg dailyhas daily BMmonitor bowels Type 2 joel betes mellitus 77112328 E11.8 6865894 one accucheck recorded 98glipizid e 5mg dailyorder ed accuchecks bid twice weekly Essential hypertension 66903365 I10 17700 very well controlled cont amlodipine 5mg dailycont hydralazin e 25mg bidcont clonidine 0.1mg bidcont HCTZ 25mg dailymonit or BP and labs Mood disorder 98289232 F 39 02353 normal mood and affect on home med regimencon t fluoxetine 60 mg dailycont quetiapine 100 mg bidcont prazosin 1 mg qhscont clonazepam 2 mg qhsmonitor mood and affectpsyc h eval prn [id number] [place] [address] 10/12/2024 13:39:39 10/16/2024 10:05:58 Acute back pain with sciatica 319297762 M54.41 37663110 Pain well managedabl e to ambulate with walker to bathroomco nt PT OTwill sched tylenol 1000 mg tidcont oxy 5 mg q8h prnmonitor painphysio logy provider to follow Irritable bowel syndrome characterized by constipation 499715624 K58.1 895580 normal bowels herecont lnactolide 290 mcg dailyhas daily BMmonitor bowels Type 2 joel betes mellitus 51058015 E11.8 0812187 above goal 200-300 rangept is currently on high dose prednisone burstwill hold off on adjustment until prednisone is completeco nt glipizide 5 mg dailyorder ed accuchecks bid twice weekly Essential hypertension 94654094 I10 53019 very well controlled cont amlodipine 5mg dailycont hydralazin e 25mg bidcont clonidine 0.1mg bidcont HCTZ 25mg dailymonit or BP and labs Mood disorder 73082063 F 39 99980 normal mood and affect on home med regimencon t fluoxetine 60 mg dailycont quetiapine 100 mg bidcont prazosin 1 mg qhscont clonazepam 2 mg qhsmonitor mood and affectpsyc h eval prn Generalize d osteoarthritis 181448977 M15.9 1453 to right kneestarte d on prednisone burst on 10/10now pain and swelling completely resolvedwi ll sched tylenol 1000 mg tidstart lidocaine patch to right kneecont oxy 5 mg q8h prnphysiol ogy following [address] [place] [address] 10/15/2024 10:08:43 10/18/2024 08:50:33 Generalized osteoarthritis 268615634 M15.9 1453 OA to right knee w/ pain/ swellingco mpleted prednisone burst on 10/14 with improvemen tcont sched tylenol 1000 mg tidcont lidocaine patch to right kneecont oxy 5 mg q8h prnmonitor narc usage and wean as toleratedp hysiology provider following Acute back pain with sciatica 699187104 M54.41 02194334 sciatica pain well managedabl e to ambulate with walker to bathroomco nt sched tylenol 1000 mg tidcont oxy 5 mg q8h prnmonitor painphysio logy provider to followcont PT OTmonitor progress Type 2 joel betes mellitus 97765971 E11.8 3553923 completed prednisone burst yesterday and BS remain elevatedno w well into the 300 rangeincre ase to glipizide 10 mg dailystart accuchecks tid with house ss lispro until glipizide takes affectmoni tor BS trend Essential hypertension 14169396 I10 76273 very well controlled cont amlodipine 5mg dailycont hydralazin e 25mg bidcont clonidine 0.1mg bidcont HCTZ 25mg dailymonit or BP and labs [id number] CARLENE GU, VOCATIONAL TRAINING INSTRUCTOR-C [facility] [address] [place] [address] 10/16/2024 10:46:42 10/18/2024 09:13:03 Generalized osteoarthritis 977941563 M15.9 1453 OA to right knee w/ pain/ swellingco mpleted prednisone burst on 10/14 with improvemen tcont sched tylenol 1000 mg tidcont lidocaine patch to right kneecont oxy 5 mg q8h prn, nursing to supplyf/u with PCPrecs to make apt with ortho Acute back pain with sciatica 094754801 M54.41 50000588 sciatica pain well managedabl e to ambulate with walker to bathroomco nt sched tylenol 1000 mg tidcont oxy 5 mg q8h prn nursing to supplyf/u with PCP Type 2 joel betes mellitus 49616644 E11.8 6125474 completed prednisone burst yesterday and BS remain elevatedno w well into the 300 rangeincre ase to glipizide 10 mg dailyf/u with PCPrepeat A1C in 3 mos Essential hypertension 86507530 I10 11367 very well controlled cont amlodipine 5mg dailycont hydralazin e 25mg bidcont clonidine 0.1mg bidcont HCTZ 25mg dailyf/u with PCP Irritable bowel syndrome characterized by constipation 155094993 K58.1 275527 cont home medlnactol blas 290 mcg dailyf/u with PCP Mixed hyperlipidemia 267 512531 E78.2 73273 cont atorvastat inf/u with PCP Gastroesop hageal reflux disease 312289380 K21.9 24981092 chroniccon t omeprazole dailyf/u with PCP Diverticular disease [address] finding in recent admissionf /u with PCP Acquired hypothyroidism 453458459 E03.9 64393 levothyrox ine 50 mcg dailythyro id panel outptf/u with PCP Mood disorder 82977713 F 39 72324 cont home medsfluoxe dragan 60 mg dailyqueti [...] Murphy Member ID Guarantor Name 11/03/[address] [facility] - DOS ON OR AFTER 2022 - MEDICARE ADVANTAGE [place] (MEDICARE REPLACEMENT/ADV ANTAGE - PPO) Wen Moran [id number] Wen Moran Notes Date Note Type Note Provider Name and Address Organization Details Recorded Time 10/09/2024 text/html ROS as noted in the HPI 69yo F with metabolic syndrome, lumbar spondylosis admitted to [facility] after presenting to the [facility] (September 28-October 03) for acute severe RIGHT sciatica-type pain. Patient lives alone and unable to ambulate safely despite use of narcotics. Plain lumbar film remarkable for spondylosis without acute process. CT pelvis unremarkable other than findings of diverticulosis. Comorbidities: HTN, CKD 4, WILLETT / GERD / idiopathic constipation Allergies: No Known Allergies Daxa Chilel MD [address] [facility], [address], [place], [address], [facility] [employer] [facility] 10/31/2024 09:52:56 10/10/2024 text/html Pt is [...] GERD / idiopathic constipation QUINTIN KLINE [address] [facility] [address], [place], [address], [facility] [employer] [facility] 10/11/2024 20:38:41 10/12/2024 text/html Pt is [...] GERD / idiopathic constipation QUINTIN KLINE [address] [facility], [address], [place], [address], [facility] [employer] 10/12/2024 13:54:27 10/15/2024 text/html Pt is a [...] and no complaints. Eating and drinking normally. [facility] HTN, CKD 4, WILLETT / GERD / idiopathic constipation QUINTIN KLINE [address] [facility], [address], [place], [address], [facility] [employer] [facility] 10/15/2024 12:59:38 10/16/2024 text/html Pt is [...] for discharge home with meds and services [facility] HTN, CKD 4, WILLETT / GERD / idiopathic constipation QUINTIN KLINE [address] [facility], [address], [place], [address], [facility] [employer] 10/17/2024 07:35:46 OBGyn Episode No OBEpisode recorded.
--- OUTSIDE RECORDS SUMMARY | 2025-01-23 11:52 | XMS_ITS | Encounter Summary ---
Author Organization [employer] Address [address] [facility] 7t [place] [address] Care Team Providers Care Staff Toxicologist Name Role Phone Kathryn Jarquin MD Primary Care Provider [phone] Denis Rodgers PharmD Unavailable [phone] Reason for Visit * Reason Comments Med Refill Encounter Details Date Type Department Care Team ([facility] st Contact Info) Description 09/19/2024 Refill [facility] [address] [place], [place] [phone] Kathryn Jarquin MD [address] [place], [place] [phone] Hypomagnesemia Social History Tobacco Use Types Packs/Day [...] Upcoming Encounters Date Type Department Care Team ([facility] st Contact Info) Description 01/24/2025 9:30 AM EDT Medication Management [facility] [address] [place] [address] Denis Rodgers, PharmD [address] [place] [address] 01/24/2025 10:15 AM EDT Office Visit [facility] [address] [place] [address] Kathryn Jarquin MD [address] [place] [address] 02/05/2025 3:00 PM EST Clinical Support [facility] MED [facility] PEDS [address] [place] [address] Rhonda Valdez, DELFINA [address] [place] [address] 02/22/2025 1:45 PM EST Office Visit [facility] OPTOMETRY [address] [place] [address] Francesca Martinez, OD [address] [place] [address] documented as of this encounter Goals Goal [...] documented as of this encounter Care Teams Staff Toxicologist Relationship Specialty Start Date End Date Kathryn Jarquin MD [address] [place] [address] PCP - General Family Medicine 04/04/18 Denis Rodgers, PharmD [address] [place] [address] Pharmacist Internal Medicine 10/22/22 documented as of this encounter
--- OUTSIDE RECORDS SUMMARY | 2025-01-23 11:52 | XMS_ITS | Encounter Summary ---
Author Organization [employer] Address [address] [facility] [address] [place] [address] Care Team Providers Care Supervisor Metal Fabricating Name Role Phone Kathryn Jarquin MD Primary Care Provider [phone] Denis Rodgers PharmD Unavailable [phone] Reason for Visit * Reason Comments Med Refill Encounter Details Date Type Department Care Team ([facility] st Contact Info) Description 05/29/2024 Refill [facility] [address] [place], [place] [phone] Kathryn Jarquin MD 230 [place] [address] Upper back pain; Chronic pain of both [...] Upcoming Encounters Date Type Department Care Team ([facility] Contact Info) Description 01/24/2025 9:30 AM EDT Medication Management [facility] [address] [place] [address] Denis Rodgers, PharmD [address] [place] [address] 01/24/2025 10:15 AM EDT Office Visit [facility] [address] [place] [address] Kathryn Jarquin MD [address] [place] [address] 02/05/2025 3:00 PM EST Clinical Support [facility] [address] [place] [address] Rhonda Valdez, RN 505 [place] [address] 02/22/2025 1:45 PM EST Office Visit [facility] OPTOMETRY [address] [place] [address] Francesca Martinez, OD [address] [place] [address] documented as of this encounter Goals Goal [...] as of this encounter Care Teams Supervisor Metal Fabricating Relationship Specialty Start Date End Date Kathryn Jarquin MD [address] [place] [address] PCP - General Family Medicine 04/04/18 Denis Rodgers, PharmD [address] [place] [address] Pharmacist Internal Medicine 10/22/22 documented as of this encounter
--- OUTSIDE RECORDS SUMMARY | 2025-01-23 11:52 | XMS_ITS | Encounter Summary ---
Author Organization [employer] Address [address] [facility] [address] 7[address] [place] [address] Care Team Providers Care Mastic Sprayer Name Role Phone Kathryn Jarquin MD Primary Care Provider [phone] Denis Rodgers PharmD Unavailable [phone] Encounter Details Date Type Department Care Team (Late st Contact Info) Description 12/17/2024 Orders Only [facility] 230 [place] [address] Kathryn Jarquin MD [address] [place] [address] Hypokalemia (Primary Dx) Social History Tobacco Use [...] [facility] st Contact Info) Description 01/24/2025 9:30 AM EDT Medication Management [facility] [address] [place] [address] Denis Rodgers, PharmD [address] [place] [address] 01/24/2025 10:15 AM EDT Office Visit [facility] [address] [place] [address] Kathryn Jarquin MD [address] [place] [address] 02/05/2025 3:00 PM EST Clinical Support [facility] MED [facility] PEDS [address] [place] [address] Rhonda Valdez, DELFINA 505 [place] [address] 02/22/2025 1:45 PM EST Office Visit [facility] OPTOMETRY [address] [place] [address] Francesca Martinez, AUNDREA [address] [place] [address] documented as of this encounter Goals Goal [...] EDT) Sodium 141 135 - 145 mmol/L [facility] Potassium 3.7 3.3 - 5.1 mmol/L [facility] Chloride 104 96 - 108 mmol/L [facility] Carbon Dioxide 26 22 - 29 mmol/L [facility] Anion Gap 15 12 - 20 [facility] Urea Nitrogen (BUN) 26(H) 9 - 16 mg/dL [facility] Creatinine, Serum 1.54(H) 0.5 - 1.4 mg/dL [facility] Estimated Glomerular Filt Rate 34 [facility] Comment:Chronic Kidney Disea se: Estimated GFR < 60 mL/min/1.85r8Svucgc Kidney Disease: Estimated GFR < 15 mL/min/1.73m2 Glucose 181(H) 60 - 115 mg/dL [facility] Calcium 9.6 8.4 - 10.2 mg/dL [facility] Blood Venous blood specimen / Unknown 12/21/2024 9:40 AM EDT 12/21/2024 11:19 AM EDT us Kathryn Jarquin MD LAB BLOOD ORDERABLES Final Resul t [facility] [address] [place] [address] [phone] * Magnesium (12/19/2024 1:34 PM EDT) Magnesium 1.7 1.6 - 2.6 mg/dL [facility] Blood Venous blood specimen / Unknown 12/19/2024 1:34 PM EDT 12/19/2024 4:03 PM EDT Kathryn Jarquin MD LAB BLOOD ORDERABLES Final Resul t [facility] [address] [place] [address] [phone] documented in this encounter Visit Diagnoses Diagnosis Hypokalemia- Primary Hypopotassemia documented in this encounter Additional Health Concerns Assessment Noted Time PHQ-9 Depression Total Score: 12 024 10:26 AM EST documented as of this encounter Care Teams Mastic Sprayer Relationship Specialty Start Date End Date Kathryn Jarquin MD [address] [place] [address] PCP - General Family Medicine 04/04/18 Denis Rodgers, PharmD [address] [place] [address] Pharmacist Internal Medicine 10/22/22 documented as of this encounter
--- OUTSIDE RECORDS SUMMARY | 2025-01-23 11:52 | XMS_ITS | Encounter Summary ---
Author Organization [employer] Address [address] [facility] 7t [place] [address] Care Team Providers Care Footwear Sales Associate Name Role Phone Kathryn Jarquin MD Primary Care Provider Denis Rodgers PharmD Unavailable [phone] Reason for Visit * Reason Onset Date Comments chart prep 01/23/2025 Encounter Details Date Type Department Care Team ([facility] st Contact Info) Description 01/23/2025 Telephone [facility] [address] [place] [address] Kathryn Jarquin MD [address] [place], [place] [phone] chart prep Social History Tobacco Use Types [...] encounter Miscellaneous Notes * Telephone Encounter - [place] - 01/23/2025 10:30 AM EDT Chart Prep Labs: done Images: done Referrals: complete Vaccines due: Flu, RSV, and Zoster Screenings: eye exam Overdue care gaps: Glucose documented in this encounter Plan of Treatment Upcoming Encounters Date Type Department Care Team (Late st Contact Info) Description 01/24/2025 9:30 AM EDT Medication Management [facility] [address] [place] [address] Denis Rodgers, NamitaD [address] [place] [address] 01/24/2025 10:15 AM EDT Office Visit [facility] [address] [place] [address] Kathryn Jarquin MD [address] [place] [address] 02/05/2025 3:00 PM EST Clinical Support [facility] MED [facility] PEDS [address] [place] [address] Rhonda Valdez, RN [address] [place] [address] 02/22/2025 1:45 PM EST Office Visit [facility] OPTOMETRY [address] [place] [address] Francesca Martinez, OD [address] [place] [address] documented as of this encounter Goals Goal [...] documented as of this encounter Care Teams Footwear Sales Associate Relationship Specialty Start Date End Date Kathryn Jarquin MD [address] [place] [address] PCP - General Family Medicine 04/04/18 Denis Rodgers, PharmD [address] [place] [address] Pharmacist Internal Medicine 10/22/22 documented as of this encounter
--- OUTSIDE RECORDS SUMMARY | 2025-01-23 11:52 | XMS_ITS | Encounter Summary ---
Author Organization [employer] Address [address] [facility] 7t [place] [address] Care Team Providers Care Transit Mix Operator Name Role Phone Kathryn Jarquin MD Primary Care Provider [phone] Denis Rodgers PharmD Unavailable [phone] Reason for Visit * Reason Comments Med Refill Encounter Details Date Type Department Care Team ([facility] st Contact Info) Description 01/21/2025 Refill [facility] [address] [place], [place] [phone] Kathryn Jarquin MD [address] [place] [address] Hypothyroidism (acquired) Social History Tobacco Use Types [...] Upcoming Encounters Date Type Department Care Team ([facility] st Contact Info) Description 01/24/2025 9:30 AM EDT Medication Management [facility] [address] [place] [address] Denis Rodgers, PharmD [address] [place] [address] 01/24/2025 10:15 AM EDT Office Visit [facility] MED[facility] [address] [place] [address] Kathryn Jarquin MD [address] [place] [address] 02/05/2025 3:00 PM EST Clinical Support [facility] MED [facility] PEDS [address] [place] [address] Rhonda Valdez, DELFINA [address] [place] [address] 02/22/2025 1:45 PM EST Office Visit [facility] OPTOMETRY [address] [place] [address] Francesca Martinez, OD [address] [place] [address] documented as of this encounter Goals Goal [...] documented as of this encounter Care Teams Transit Mix Operator Relationship Specialty Start Date End Date Kathryn Jarquin MD [address] [place] [address] PCP - General Family Medicine 04/04/18 Denis Rodgers, PharmD [address] [place] [address] Pharmacist Internal Medicine 10/22/22 documented as of this encounter
--- OUTSIDE RECORDS SUMMARY | 2025-01-23 11:52 | XMS_ITS | Encounter Summary ---
Author Organization [employer] Address [address] [facility] 7t [place] [address] Care Team Providers Care Wet Cleaner Machine Name Role Phone Kathryn Jarquin MD Primary Care Provider [phone] Denis Rodgers PharmD Unavailable [phone] Encounter Details Date Type Department Care Team ([facility] st Contact Info) Description 09/30/2023 Orders Only [facility] [address] [place], [place] [phone] Kathryn Jarquin MD [address] [place], [place] [phone] Social History Tobacco Use Types Packs/Day Years [...] Description 01/24/2025 9:30 AM EDT Medication Management [facility] [address] [place] [address] Denis Rodgers, PharmD [address] [place] [address] 01/24/2025 10:15 AM EDT Office Visit [facility] [address] [place] [address] Kathryn Jarquin MD [address] [place] [address] 02/05/2025 3:00 PM EST Clinical Support [facility] [address] [place] [address] Rhonda Valdez, RN 505 [place] [address] 02/22/2025 1:45 PM EST Office Visit [facility] OPTOMETRY [address] [place] [address] TarkaFrancesca, OD [address] [place] [address] documented as of this encounter Goals Goal Patient Goal Type Associated Problems Recent Progress Patient-Stated? Author Blood Pressure < 140/90 Blood Pressure 122/64( 025 2:28 PM EDT) No Denis Rodgers, PharmD documented as of this encounter Visit Diagnoses Not on filedocumented in this encounter Care Teams Wet Cleaner Machine Relationship Specialty Start Date End Date Kathryn Jarquin MD [address] [place] [address] PCP - General Family Medicine 04/04/18 Denis Rodgers, PharmD [address] [place] [address] Pharmacist Internal Medicine 10/22/22 documented as of this encounter
== END 2025-01-23 10:58 | disposition home or self-care (01) ==
LOC: HO.HWS 09:53
PROVIDERS: PCP Family Medicine; Visit Provider Obstetrics & Gynecology
DX: Z01.419 Encounter for gynecological examination (general) (routine) without abnormal findings (principal); N76.0 Acute vaginitis
CPT/HCPCS: 99213; 99397; 99459

== ENCOUNTER 2025-01-23 09:53 | Outpatient (REF) | payer OTHER, SELFPAY ==
--- OUTSIDE RECORDS SUMMARY | 2025-01-23 17:20 | XMS_ITS | Data Portability ---
Author Organization [facility], Main Office Address [address] [place] [address] Care Team Providers Care Sex Crimes Detective Name Role Phone [facility] ([facility] OTHER Assessment No assessment recorded. Plan [...] By Organization Details Last Modified Time 10/09/2024 [id number] vitamin D supplemetation [email or web address] Not available 10/09/2024 13:20:17 Reason for Referral None Reported. Problems Name Problem SNOMED Code Status Onset Date Resolution Date Notes Provider Name and Address Organization Details Recorded Time Type 2 diabetes mellitus without complication 639322699 Active 2024 Not Available [facility] 16:22:55 Essential hypertension 74802954 Active 2024 Not Available [facility] 16:14:24 Gastroesophag eal reflux disease without esophagitis 946263261 Active 2024 Not Available [facility] 16:15:22 Irritable bowel syndrome characterized by constipation 391433911 Active 2024 Not Available [facility] 16:15:24 Backache 150537127 Active 2024 Not Available [facility] 16:22:56 Pain in right lower limb 195285722 Active 2024 Not Available [facility] 16:22:58 Chronic kidney disease stage 4 754477598 Active 2024 Not Available [facility] 16:20:00 Muscle weakness 07992945 Active 2024 Not Available [facility] 16:39:11 Difficulty walking 667045869 Active 2024 Not Available [facility] [...] units if Bs greater than 400 call senior energy consultant provider, subcutane ously three times a day [...] ICD10 Code Diagnosis IMO Codes Diagnosis Note [id number] CARLENE GU NP-C [facility] [address] [place] [address] 10/04/2024 08:47:45 10/10/2024 14:07:41 Acute back pain with sciatica 620842583 M54.41 [id number] with trouble ambulating dt painadmit to PT OTtylenol for paincont oxy 5 mg q8h prnmonitor painphysio logy provider to follow Irritable bowel syndrome characterized by constipation 067426496 K58.1 732323 cont home medlnactol blas 290 mcg dailymonit or bowels Type 2 joel betes mellitus 14868996 E11.8 9555929 glipizide 5mg dailymonit or accuchecks Mixed hyperlipidemia 267 073938 E78.2 87589 cont atorvastat inlipids outpt Essential hypertension 91310371 I10 51514 cont amlodipine 5mg dailycont hydralazin e 25mg bidcont clonidine 0.1mg bidcont HCTZ 25mg dailymonit or BP and labs Gastroesop hageal reflux disease 335044440 K21.9 61818136 chroniccon t omeprazole dailymonit or ss Diverticular disease [address] finding in recent admissionc onsider outpt follow up Acquired hypothyroidism 259946231 E03.9 94194 levothyrox ine 50 mcg dailythyro id panel outpt Mood disorder 19450415 F 39 42101 cont home medsfluoxe dragan 60 mg dailyqueti apine 100 mg bidprazosi n 1 mg qhsclonaze keisha 2 mg qhsmonitor mood and affectpsyc h eval prn [id number] Daxachelo Chilel MD [facility] [address] [place] [address] 10/09/2024 12:44:33 11/03/2024 20:38:56 Type 2 diabetes mellitus 77724648 E11.8 3570278 glipizide 5mg daily 10/03/2024 13:14 98.0 mg/dL [id number] (Manual) Irritable bowel syndrome characterized by constipation 957965656 K58.1 700136 outpt lnactolide 290mcg daily Acute back pain with sciatica 252044643 M54.41 08007404 PRN oxycodone 5mg tid Mixed hyperlipidemia 267 201715 E78.2 38783 high intensity atorvastat in Essential hypertension 51457593 I10 65121 bASA / amlodipine 5mg daily / hydralazin [...] 12:08 122 / 76 mmHg Lying l/arm (Manual)10/05/2024 05:14 99 / 51 mmHg Lying r/arm amcmillain (Manual)10/04/2024 21:46 128 / 76 mmHg Sitting l/arm Gastroesop hageal reflux disease 271101257 K21.9 56668479 maintenanc e omeprazole 4mg daily Mixed urin bessy incontinence 333085967 N39.46 549578 urge / stress History of surgery 34090 5003 Z98.191 2167381 s/p C/S, hysterctom y and T/L Diverticular disease [address] finding in recent admission Acquired hypothyroidism 726026710 E03.9 33879 levothyrox ine 50mcg daily Mood disorder 45784360 F 39 34192 fluoxetine 60mg daily / quetiapine 100mg bid / prazosin 1mg qhs / clonazepam 2mg qhsrecords indicate use of mirtazapin e 45mg po qhs [id number] CARLENE GU, HUMAN FACTORS SCIENTIST-C [facility] [address] [place] [address] 10/11/2024 20:36:42 10/12/2024 09:51:57 Acute back pain with sciatica 286808301 M54.41 83456572 Pain well managedabl e to ambulate with walker to bathroomco nt PT OTtylenol for paincont oxy 5 mg q8h prnmonitor painphysio logy provider to follow Irritable bowel syndrome characterized by constipation 509875899 K58.1 375768 normal bowels herecont lnactolide 290 mcg dailyhas daily BMmonitor bowels Type 2 joel betes mellitus 85079399 E11.8 8536368 one accucheck recorded 98glipizid e 5mg dailyorder ed accuchecks bid twice weekly Essential hypertension 18614752 I10 64544 very well controlled cont amlodipine 5mg dailycont hydralazin e 25mg bidcont clonidine 0.1mg bidcont HCTZ 25mg dailymonit or BP and labs Mood disorder 54854433 F 39 85184 normal mood and affect on home med regimencon t fluoxetine 60 mg dailycont quetiapine 100 mg bidcont prazosin 1 mg qhscont clonazepam 2 mg qhsmonitor mood and affectpsyc h eval prn [id number] [place] [address] 10/12/2024 13:39:39 10/16/2024 10:05:58 Acute back pain with sciatica 286764109 M54.41 36914504 Pain well managedabl e to ambulate with walker to bathroomco nt PT OTwill sched tylenol 1000 mg tidcont oxy 5 mg q8h prnmonitor painphysio logy provider to follow Irritable bowel syndrome characterized by constipation 855436884 K58.1 594632 normal bowels herecont lnactolide 290 mcg dailyhas daily BMmonitor bowels Type 2 joel betes mellitus 53583444 E11.8 9945611 above goal 200-300 rangept is currently on high dose prednisone burstwill hold off on adjustment until prednisone is completeco nt glipizide 5 mg dailyorder ed accuchecks bid twice weekly Essential hypertension 25371635 I10 68566 very well controlled cont amlodipine 5mg dailycont hydralazin e 25mg bidcont clonidine 0.1mg bidcont HCTZ 25mg dailymonit or BP and labs Mood disorder 09939028 F 39 90426 normal mood and affect on home med regimencon t fluoxetine 60 mg dailycont quetiapine 100 mg bidcont prazosin 1 mg qhscont clonazepam 2 mg qhsmonitor mood and affectpsyc h eval prn Generalize d osteoarthritis 051125667 M15.9 1453 to right kneestarte d on prednisone burst on 10/10now pain and swelling completely resolvedwi ll sched tylenol 1000 mg tidstart lidocaine patch to right kneecont oxy 5 mg q8h prnphysiol ogy following [id number] [place] [address] 10/15/2024 10:08:43 10/18/2024 08:50:33 Generalized osteoarthritis 673870707 M15.9 1453 OA to right knee w/ pain/ swellingco mpleted prednisone burst on 10/14 with improvemen tcont sched tylenol 1000 mg tidcont lidocaine patch to right kneecont oxy 5 mg q8h prnmonitor narc usage and wean as toleratedp hysiology provider following Acute back pain with sciatica 981343253 M54.41 22672653 sciatica pain well managedabl e to ambulate with walker to bathroomco nt sched tylenol 1000 mg tidcont oxy 5 mg q8h prnmonitor painphysio logy provider to followcont PT OTmonitor progress Type 2 joel betes mellitus 29116271 E11.8 1042258 completed prednisone burst yesterday and BS remain elevatedno w well into the 300 rangeincre ase to glipizide 10 mg dailystart accuchecks tid with house ss lispro until glipizide takes affectmoni tor BS trend Essential hypertension 61662833 I10 90474 very well controlled cont amlodipine 5mg dailycont hydralazin e 25mg bidcont clonidine 0.1mg bidcont HCTZ 25mg dailymonit or BP and labs [id number] CARLENE GU, HUMAN FACTORS SCIENTIST-C [facility] [address] [place] [address] 10/16/2024 10:46:42 10/18/2024 09:13:03 Generalized osteoarthritis 066735252 M15.9 1453 OA to right knee w/ pain/ swellingco mpleted prednisone burst on 10/14 with improvemen tcont sched tylenol 1000 mg tidcont lidocaine patch to right kneecont oxy 5 mg q8h prn, nursing to supplyf/u with PCPrecs to make apt with ortho Acute back pain with sciatica 269554530 M54.41 46177486 sciatica pain well managedabl e to ambulate with walker to bathroomco nt sched tylenol 1000 mg tidcont oxy 5 mg q8h prn nursing to supplyf/u with PCP Type 2 joel betes mellitus 64617749 E11.8 4353450 completed prednisone burst yesterday and BS remain elevatedno w well into the 300 rangeincre ase to glipizide 10 mg dailyf/u with PCPrepeat A1C in 3 mos Essential hypertension 93346871 I10 87816 very well controlled cont amlodipine 5mg dailycont hydralazin e 25mg bidcont clonidine 0.1mg bidcont HCTZ 25mg dailyf/u with PCP Irritable bowel syndrome characterized by constipation 232441410 K58.1 282028 cont home medlnactol blas 290 mcg dailyf/u with PCP Mixed hyperlipidemia 267 853287 E78.2 85479 cont atorvastat inf/u with PCP Gastroesop hageal reflux disease 275553483 K21.9 97714974 chroniccon t omeprazole dailyf/u with PCP Diverticular disease [address] finding in recent admissionf /u with PCP Acquired hypothyroidism 322413688 E03.9 28919 levothyrox ine 50 mcg dailythyro id panel outptf/u with PCP Mood disorder 24234319 F 39 66914 cont home medsfluoxe dragan 60 mg dailyqueti [...] ID Guarantor Name 11/03/[address] [facility] - DOS ON OR AFTER 2022 - MEDICARE ADVANTAGE [place] & [place] (MEDICARE REPLACEMENT/ADV ANTAGE - PPO) Wen Moran [id number] Wen Moran Notes Date Note Type Note Provider Name and Address Organization Details Recorded Time 10/09/2024 text/html ROS as noted in the HPI 69yo F with metabolic syndrome, lumbar spondylosis admitted to [facility] after presenting to the [facility] (September 28-October 03) for acute severe RIGHT sciatica-type pain. Patient lives alone and unable to ambulate safely despite use of narcotics. Plain lumbar film remarkable for spondylosis without acute process. CT pelvis unremarkable other than findings of diverticulosis. Comorbidities: HTN, CKD 4, WILLETT / GERD / idiopathic constipation Allergies: No Known Allergies Daxa Chilel MD [address], [address], [place], [address], [facility] [facility] 10/31/2024 09:52:56 10/10/2024 text/html Pt is a [...] GERD / idiopathic constipation QUINTIN KLINE [address], [place], [address], [facility] 10/11/2024 20:38:41 10/12/2024 text/html Pt is a [...] GERD / idiopathic constipation QUINTIN KLINE [address], [address], [place], [address], [facility] [employer] 10/12/2024 13:54:27 10/15/2024 text/html Pt is a [...] and no complaints. Eating and drinking normally. [facility] HTN, CKD 4, WILLETT / GERD / idiopathic constipation QUINTIN KLINE [address], [address], [place], [address], [facility] 10/15/2024 12:59:38 10/16/2024 text/html Pt is a [...] for discharge home with meds and services [facility] HTN, CKD 4, WILLETT / GERD / idiopathic constipation QUINTIN KLINE [address], [address], [place], [address], [facility] [employer] 10/17/2024 07:35:46 OBGyn Episode No OBEpisode recorded.
[2025-01-24 06:07] LABS: Bacterial Vaginosis PCR NEGATIVE (Negative); Candida Group PCR NOT DETECTED (Not Detect); Candida glab krusei PCR NOT DETECTED (Not Detect); Trichomonas vaginalis PCR NOT DETECTED (Not Detect)
== END 2025-01-23 09:54 | disposition home or self-care (01) ==
LOC: HO.LNP 09:53
PROVIDERS: PCP Family Medicine; Visit Provider Obstetrics & Gynecology
DX: Z01.419 Encounter for gynecological examination (general) (routine) without abnormal findings (principal); N76.0 Acute vaginitis; Z78.0 Asymptomatic menopausal state; Z98.84 Bariatric surgery status
CPT/HCPCS: 81515; 99212; 99397

== ENCOUNTER 2025-02-24 14:25 | Emergency (ER) | payer OTHER, SELFPAY ==
--- OUTSIDE RECORDS SUMMARY | 2025-02-21 23:59 | XMS_ITS | Continuity of Care Document ---
Author Organization [facility] [employer] Address [address] [place] [address], [address] [place] [address]- Care Team Providers Care Community Educator Name Role Phone Britton SAINI, Kathryn Primary Care Physician [phone] [id number] Date(s): 11/13/24 - 02/21/25 [facility] [employer] [facility] [address] [place] [address], [address] [place], [place] [address] Attending Physician: Kallie Dove MD Admitting Physician: Kallie Dove MD Referring Physician: Kathryn Jarquin MD Encounter Type: Pre-OutPatient One Time Allergies, Adverse Reactions, Alerts No Known Allergies Medications albuterol 0.083% inhalation solution INHALE 1 AMPULE USING A NEBULIZER EVERY 6 HOURS NEEDED FOR SHORTNESS OF BREATH Start Date: 08/28/23 Status: Ordered Medication Dispense Status: Completed Total Allowed Fills: 1 Fills Dispensed: 0 amLODIPine 5 mg oral tablet 5 mg, By Mouth, Daily, Martiniquais, # 30 tablet, Refills 0, Tot. Refills 0, Maintenance, 09/01/23 10:50:00 AM EDT, Route to Pharmacy Electronically, [facility], Partial fill upon patient request if the prescription is for a schedule II opioid drug., 160, cm, 09/01/23 3:54:00 EDT, Height, 73, kg, 08/29/23 6:38:00 EDT, Dry Weight Start Date: 09/01/23 Status: Ordered Medication Dispense Status: Completed Quantity: 30.0 Unit: tablet Total Allowed Fills: 1 Fills Dispensed: 0 Aspirin Enteric Coated 81 mg oral delayed release tablet TAKE 1 TABLET BY MOUTH AT BEDTIME Start Date: 08/28/23 Status: Ordered Medication Dispense Status: Completed Total Allowed Fills: 1 Fills Dispensed: 0 atorvastatin 80 mg oral tablet TAKE 1 TABLET BY MOUTH AT BEDTIME Start Date: 08/28/23 Status: Ordered Medication Dispense Status: Completed Total Allowed Fills: 1 Fills Dispensed: 0 bisacodyl 5 mg oral delayed release tablet TAKE 2 TABLETS BY MOUTH AT BEDTIME Start Date: 08/28/23 Status: Ordered Medication Dispense Status: Completed Total Allowed Fills: 1 Fills Dispensed: 0 cetirizine 10 mg oral capsule 1 capsule = 10 mg, By Mouth, Daily, PRN for allergy symptoms, # 40 capsule, 0 Refills, Maintenance,10/18/19 3:57:00 PM EDT, Capsule Start Date: 10/18/19 Status: Ordered Medication Dispense Status: Completed Quantity: 40.0 Unit: capsule Total Allowed Fills: 1 Fills Dispensed: 0 chlorthalidone 25 mg oral tablet TAKE 1 TABLET BY MOUTH EVERY MORNING Start Date: 08/28/23 Status: Ordered Medication Dispense Status: Completed Total Allowed Fills: 1 Fills Dispensed: 0 clonazepam 2 mg oral tablet 1 tablet = 2 mg, By Mouth, Daily at bedtime, 0 Refills, Maintenance, 11/21/12 9:08:21 AM EDT Start Date: 11/21/12 Status: Ordered Medication Dispense Status: Completed Total Allowed Fills: 1 Fills Dispensed: 0 cloNIDine 0.1 mg oral tablet TAKE 1 TABLET BY MOUTH TWICE DAILY NEEDED PANIC ATTACK Start Date: 08/28/23 Status: Ordered Medication Dispense Status: Completed Total Allowed Fills: 1 Fills Dispensed: 0 dicyclomine 20 mg oral tablet AKSHATE MCKAYLA MAR AL D A Start Date: 08/28/23 Status: Ordered Medication Dispense Status: Completed Total Allowed Fills: 1 Fills Dispensed: 0 Estrace Vaginal Cream 0.1 mg/g See Instructions, 1 gram Vaginally at bedtime twice per week, # 42 Gm, 4 Refills, Maintenance, 11/13/24 9:47:00 AM EDT, [facility], Partial fill upon patient request if the prescription is for a schedule II opioid drug., 135, cm, 09/12/23 1:59:00 EDT, Height, 69.5, kg, 11/13/24 9:28:00 EDT, Dry Weight Start Date: 11/13/24 Status: Ordered Medication Dispense Status: Completed Quantity: 42.0 Unit: g Total Allowed Fills: 5 Fills Dispensed: 0 Flonase 50 mcg/inh nasal spray Daily, 0 Refills, Maintenance, 10/18/19 3:58:00 PM EDT Start Date: 10/18/19 Status: Ordered Medication Dispense Status: Completed Total Allowed Fills: 1 Fills Dispensed: 0 Flovent Diskus Inhalation, 2 times a day, 0 Refills, Maintenance, 10/18/19 3:58:00 PM EDT Start Date: 10/18/19 Status: Ordered Medication Dispense Status: Completed Total Allowed Fills: 1 Fills Dispensed: 0 FLUoxetine 20 mg oral capsule 60 mg, 3, capsule, By Mouth, Daily, # 90 capsule, Refills 0, Maintenance, 08/28/23 10:53:00 PM EDT, Partial fill upon patient request if the prescription is for a schedule II opioid drug. Start Date: 08/28/23 Status: Ordered Medication Dispense Status: Completed Quantity: 90.0 Unit: capsule Total Allowed Fills: 1 Fills Dispensed: 0 Freestyle Godfrey Monitor Maintenance, 10/18/19 4:00:00 PM EDT, Supply Start Date: 10/18/19 Status: Ordered Medication Dispense Status: Completed Total Allowed Fills: 1 Fills Dispensed: 0 Freestyle Lite Test Strips Maintenance, 10/18/19 3:59:00 PM EDT, Supply Start Date: 10/18/19 Status: Ordered Medication Dispense Status: Completed Total Allowed Fills: 1 Fills Dispensed: 0 glipiZIDE 5 mg oral tablet TAKE 1 TABLET BY MOUTH TWICE DAILY IN THE MORNING AND IN THE EVENING BEFORE MEALS Start Date: 08/28/23 Status: Ordered Medication Dispense Status: Completed Total Allowed Fills: 1 Fills Dispensed: 0 hydrALAZINE 25 mg oral tablet TAKE 1 TABLET BY MOUTH TWICE DAILY IN THE MORNING AND IN THE EVENING WITH FOOD Start Date: 08/28/23 Status: Ordered Medication Dispense Status: Completed Total Allowed Fills: 1 Fills Dispensed: 0 Insulin Aspart Subcutaneous Infusion, 3 times a day before meals, 0 Refills, Maintenance, 11/13/24 9:27:00 AM EDT, Partial fill upon patient request if the prescription is for a schedule II opioid drug. Start Date: 11/13/24 Status: Ordered Medication Dispense Status: Completed Total Allowed Fills: 1 Fills Dispensed: 0 Lancets Maintenance, 10/18/19 4:03:00 PM EDT, Supply Start Date: 10/18/19 Status: Ordered Medication Dispense Status: Completed Total Allowed Fills: 1 Fills Dispensed: 0 levothyroxine 50 mcg (0.05 mg) oral capsule 1 capsule = 50 mcg, By Mouth, Daily, 0 Refills, Maintenance, 10/18/19 4:00:00 PM EDT Start Date: 10/18/19 Status: Ordered Medication Dispense Status: Completed Total Allowed Fills: 1 Fills Dispensed: 0 Linzess 290 mcg oral capsule TOME 1 C PSULA POR V A ORAL TODOS LOS D EN [place]Y [place] Start Date: 08/28/23 Status: Ordered Medication Dispense Status: Completed Total Allowed Fills: 1 Fills Dispensed: 0 mirtazapine 45 mg oral tablet 1 tablet = 45 mg, By Mouth, Daily at bedtime, 0 Refills, Maintenance, 10/18/19 4:01:00 PM EDT Start Date: 10/18/19 Status: Ordered Medication Dispense Status: Completed Total Allowed Fills: 1 Fills Dispensed: 0 omeprazole 40 mg oral enteric coated capsule TOME MCKAYLA C PSULA TODOS LOS D Start Date: 08/28/23 Status: Ordered Medication Dispense Status: Completed Total Allowed Fills: 1 Fills Dispensed: 0 oxyCODONE 5 mg oral capsule 1 capsule = 5 mg, By Mouth, Every 6 hours, 0 Refills, Maintenance, 09/09/23 11:50:00 AM EDT, Partial fill upon patient request if the prescription is for a schedule II opioid drug. Start Date: 09/09/23 Status: Ordered Medication Dispense Status: Completed Total Allowed Fills: 1 Fills Dispensed: 0 prazosin 1 mg oral capsule TAKE 1 CAPSULE BY MOUTH AT BEDTIME Start Date: 08/28/23 Status: Ordered Medication Dispense Status: Completed Total Allowed Fills: 1 Fills Dispensed: 0 QUEtiapine 150 mg oral tablet, extended release TAKE 1 TABLET BY MOUTH AT BEDTIME Start Date: 08/28/23 Status: Ordered Medication Dispense Status: Completed Total Allowed Fills: 1 Fills Dispensed: 0 raNITIdine 300 mg oral capsule 1 capsule = 300 mg, By Mouth, Daily at bedtime, 0 Refills, Maintenance, 10/18/19 4:02:00 PM EDT Start Date: 10/18/19 Status: Ordered Medication Dispense Status: Completed Total Allowed Fills: 1 Fills Dispensed: 0 simethicone 80 mg oral tablet 1 tablet = 80 mg, By Mouth, 3 times a day after meals, 0 Refills, Maintenance, 10/18/19 4:02:00 PM EDT Start Date: 10/18/19 Status: Ordered Medication Dispense Status: Completed Total Allowed Fills: 1 Fills Dispensed: 0 Singulair 10 mg oral tablet 10 mg, 1, tablet, By Mouth, Daily, Refills 0, Maintenance, 10/18/19 4:03:00 PM EDT Start Date: 10/18/19 Status: Ordered Medication Dispense Status: Completed Total Allowed Fills: 1 Fills Dispensed: 0 sucralfate 1 gm oral tablet 1 Gm, 1, tablet, By Mouth, 3 times a day before meals and bedtime, Refills 0, Maintenance, 10/18/19 4:03:00 PM EDT Start Date: 10/18/19 Status: Ordered Medication Dispense Status: Completed Total Allowed Fills: 1 Fills Dispensed: 0 traMADol 50 mg oral tablet 1 tablet = 50 mg, By Mouth, Every 6 hours, 0 Refills, Maintenance, 10/18/19 4:03:00 PM EDT Start Date: 10/18/19 Status: Ordered Medication Dispense Status: Completed Total Allowed Fills: 1 Fills Dispensed: 0 Vitamin D3 1000 intl units oral capsule TAKE 1 CAPSULE BY MOUTH EVERY MORNING Start Date: 08/28/23 Status: Ordered Medication Dispense Status: Completed Total Allowed Fills: 1 Fills Dispensed: 0 Problem List Condition Confirmation Course Effective Dates Status H ealth Status Informant Anxiety disorder Confirmed Active moderate pesistent asthmas without complication Confirmed Active Chronic female pelvic pain Confirmed Active Constipation Confirmed Active Depression Confirmed Active Diabetes Confirmed Active Dyslipidemia Confirmed Active Gastroesophageal reflux disease without esophagitis essential (primary) Confirmed Active Generalized anxiety disorder Confirmed Active History of kidney stones Confirmed Active Hyperlipidemia Confirmed Active HTN (hypertension) Confirmed Active Hypothyroidism Confirmed Active Irritable bowel syndrome (IBS) without diarrhea Confirmed Active Pulmonary nodule Confirmed Active Obesity Confirmed Active Recurrent UTI Confirmed Active Severe obesity (BMI 35.0-39.9) with comorbidity Confirmed Active Hepatic steatosis Confirmed Active Telogen effluvium Confirmed Active Thyroid nodule Confirmed Active History of smoking Confirmed Active Tobacco use disorder Confirmed Active Social History Social History Type Response Sexual Sexually involved in last 6 months: No. Smoking Status Former smoker, quit more than 30 days ago entered on: 08/29/23 Sex Sex Representation Female (finding) Patient Care team information Care Team Personnel Name: Awa Benavidez RN Position: S RN Member Role: Primary Care Nurse Name: Dayana Monteiro NP Position: [facility] Associate Professional Member Role: Lifetime Consulting Provider Address: [address] [place], [place] [address] [place], [place] [address] Telecom: Name: Doug Luna DO Position: [facility] Renal MD Member Role: Lifetime Consulting Physician Address: [address] [place], [place] [address] [place], [place] [address] Telecom: Name: Zachary Marte RN Position: [facility] RN Member Role: Primary Care Nurse Name: Kathryn Jarquin MD Position: [facility] Outreach Member Role: PCP Address: [address] [place] [id number] Telecom: Care Team Related Persons Name: SHABANA BARROS Insurance Providers Guarantor name: AWA Health Plan Information #: 1 Payer: [facility] [employer] Payer Identifier: AWA Member Number: [id number] Group Number: [id number] Subscriber Identifier: [id number] Relationship to Subscriber: self Coverage Type: Medicare Managed Care (Includes Medicare Advantage Plans) Coverage Verification Date: AWA Telecom: AWA Address:
--- OUTSIDE RECORDS SUMMARY | 2025-02-22 13:45 | XMS_ITS | Encounter Summary ---
Author Organization [employer] Address [address] [place] [address] Care Team Providers Care Livestock Showman Name Role Phone Kathryn Jarquin MD Primary Care Provider [phone] Denis Rodgers PharmD Unavailable [phone] Encounter Details Date Type Department Care Team (Latest Contact Info) Description 02/22/2025 1:45 PM EST Office Visit [facility] OPTOMETRY [address] [place] [address] Francesca Martinez, OD [address] [place] [address] Type 2 diabetes mellitus without ophthalmic manifestations (HCC) (Primary Dx); Presence of intraocular lens; Dry eyes, bilateral; Presbyopia Social History Tobacco Use Types Packs/Day Years Used Date Smoking Tobacco: Every Day Cigarettes Passive Smoke Exposure: Past Smokeless Tobacco: Never Tobacco Cessation:Ready to Q uit: Not Asked; Counseling Given: Not Answered Depression Answer Date Recorded Patient Health Questionnaire-9 Score 12 01/24/2025 Patient Health Questionnaire-9 Score 12 01/24/2025 Last PHQ-9: Questionnaire Data Not on file 1 Housing Stability Answer Date Recorded What is [...] Date Recorded Patient Health Questionnaire-2 Score 4 01/24/2025 Internet Access Answer Date Recorded Internet Access Q1 Yes 12/05/2023 Internet Access Q2 Not on file 12/05/2023 Comments No Sex and Gender Information Value Date Recorded Sex Assigned at Female 02/01/2022 10:14 AM EDT Legal Sex Female 10:14 AM EDT Gender Identity Female 02/01/2022 10:14 AM EDT Sexual Orientation Straight 02/01/2022 10 :14 AM EDT documented as of this encounter Progress Notes * Francesca Martinez, OD - 02/22/2025 1:45 PM EST Eye Care Progress Note Patient ID: Wen Moran is a 69 y.o. female. HPI Patient presents for diabetic eye exam. Patient diagnosed with diabetes ~2004. Patient's last A1c was 7.4% at 12/19/24. Patient has CGM. Patient uses glasses for distance and near both eyes, did not bring them with her. Patient reports eyes are very watery today both eyes (OU) and they burn often. She does not use anydrops. History of diabetic laser in both eyes. ALAINA: 2 years ago Last edited by Francesca Martinez, OD on 02/22/2025 2:31 PM. Current Medications[1] Medical History[2] Surgical History[3] Family History[4] Tobacco Use: High Risk (02/22/2025) Tobacco Smoking Tobacco Use: Every Day Smokeless Tobacco Use: Never Passive Exposure: Past Allergies[5] ROS Positive for: Endocrine, Eyes Negative for: Constitutional, Gastrointestinal, Neurological, Skin, Genitourinary, Musculoskeletal,HENT, Cardiovascular, Respiratory, Psychiatric, Allergic/Imm, Heme/Lymph Last edited by Francesca Martinez, AUNDREA on 02/22/2025 1:47 PM. Base Eye Exam Visual Acuity (Snellen - Linear) Right Left Dist sc 20/20 20/20-2 Tonometry ([facility] , 1:54 PM) Right Left Pressure 14 12 Pupils Pupils APD Right PERRL None Left PERRL None Visual Gauthier (Counting fingers) Left Right Full Full Extraocular Movement Right Left Full Full Neuro/Psych Oriented x3: Yes Mood/Affect: Normal Dilation Both eyes: 1.0% tropicamide @ 1:58 PM Slit Lamp and Fundus Exam External Exam Right Left External Normal Normal Slit Lamp Exam Right Left Lids/Lashes Clean and clear Clean and clear Conjunctiva/Sclera Tr central SPK 4 scars (2 superior temporal, 1 inferior Temporal, 1 inferior central) Cornea Clear Clear Anterior Chamber Deep and quiet, angles open Deep and quiet, angles open Iris Flat, (-) NVI Flat, (-) NVI Lens PC-IOL clear and centered PC-IOL clear and centered Fundus Exam Right Left Vitreous Clear Clear Disc [place] with distinct margins, (-) NVD [place] with distinct margins, (-) NVD C/D Ratio Vertical 0.35 0.35 C/D Ratio Horizontal 0.35 0.35 Macula Flat with even pigmentation, (-) DME Flat with even pigmentation, (-) DME Vessels Normal course and caliber, (-) NVE Normal course and caliber, (-) NVE Periphery No holes/tears/detachments 360 No holes/tears/detachments 360 Refraction Manifest Refraction Sphere Cylinder [place] Add Right Camilla -0.25 175 +2.50 Left Camilla -0.50 061 +2.50 Final Rx Sphere Cylinder [place] Add Right Camilla -0.25 175 +2.50 Left Camilla -0.50 061 +2.50 Expiration Date: 02/22/2026 Assessment and Plan Diagnoses and all orders for this visit: Type 2 diabetes mellitus without ophthalmic manifestations (HCC) - No diabetic retinopathy or diabetic macular edema both eyes (OU) - Patient reports h/o laser treatment for diabetes however no laser scars were present on examination today. Patient was unaware that she had cataract surgery - I believe she may have confused the two procedures. - Discussed importance of tight blood glucose control, medication compliance and regular follow up with PCP. Today's exam notes will be made available for PCP to review. Presence of intraocular lens - Patient denies knowledge that she had cataract surgery. She believes she had a laser done for diabetes however no laser scars were present on exam today. PCI- IOLs are present in each eye, clear andcentered. Dry eyes, bilateral - Recommended the use of artificial tears in both eyes 1gtt 2-4x/day. Patient given dry eye handoutwith drop recommendations. Presbyopia - Dispensed updated spec Rx Francesca Martinez, OD 02/22/2025, 2:35 PM Assistant Designer Source: __ None _x_ Bilingual Staff __ Qualified Staff Steam Trap Worker __ Telephone Assistant Designer; ID# __ Assistant Designer brought by patient (family member, friend, SPECIAL NEEDS NANNY, etc) __ In person student driving instructor __ Ipad Assistant Designer; ID#: Language Spoken During Exam: Icelandic [1] Current Outpatient Medications Medication Sig Dispense Refill acetaminophen (Tylenol Extra Strength) 500 MG tablet Take 2 tablets (1,000 mg) by mouth every 8 (eight) hours if needed for mild pain or moderate pain. 60 tablet 2 albuterol (2.5 MG/3ML) 0.083% nebulizer solution INHALE 1 AMPULE USING A NEBULIZER EVERY 6 HOURS ASNEEDED FOR SHORTNESS OF BREATH 90 mL 1 albuterol (ProAir HFA) 108 (90 Base) MCG/ACT inhaler inhale 2 puff by inhalation route every 4 - 6 hours as needed for difficulty breathing, 4 times / day Alcohol Swabs 70 % pads Use to test blood sugar 2 times daily 100 each 5 amLODIPine (Norvasc) 5 MG tablet TAKE 1 TABLET BY MOUTH EVERY EVENING 90 tablet 3 Aspirin EC Adult Low Dose 81 MG EC tablet TAKE 1 TABLET BY MOUTH AT BEDTIME 90 tablet 3 atorvastatin (Lipitor) 80 MG tablet TAKE 1 TABLET BY MOUTH AT BEDTIME 90 tablet 3 Blood Glucose Monitoring Suppl ([place] Lite) w/Device kit Use to test blood sugar 2 times daily 1 kit 0 chlorthalidone (Hygroton) 25 MG tablet TAKE 1 TABLET BY MOUTH EVERY MORNING 90 tablet 3 clonazePAM (KlonoPIN) 2 MG tablet Take 2 mg by mouth at bedtime. cloNIDine (Catapres) 0.1 MG tablet TAKE 1 TABLET BY MOUTH TWICE DAILY NEEDED FOR PANIC ATTACK Continuous Glucose Bridge Teacher (Mediameetingyle [place] 3 [place]) device 1 each Once per day. Use as directed for CGM 1 each 0 Continuous Glucose Sensor (FreeStyle Godfrey 3 Plus Sensor) misc 1 each every 15 days. Apply 1 every 15 days as directed for CGM 2 each 11 D3-1000 25 MCG (1000 UT) capsule TAKE 1 CAPSULE BY MOUTH EVERY MORNING 90 capsule 2 estradiol (Estrace) 0.1 MG/GM vaginal cream INSERT 1 GRAM VAGINALLY WITH APPLICATORFUL AT BEDTIME TWICE EACH WEEK FLUoxetine (PROzac) 20 MG capsule glucose 4 g chewable tablet Chew 4 tablets (16 g) if needed for low blood sugar. 30 tablet 11 glucose blood (FREESTYLE LITE) test strip Use to test blood sugar 2 times daily 100 each 5 glucose blood (FreeStyle Precision Edi Test) test strip Use to test blood sugar 2 times daily in case of CGM failure or extremes of BG 50 each 11 hydrALAZINE (Apresoline) 25 MG tablet TAKE 1 TABLET BY MOUTH TWICE DAILY IN THE MORNING AND IN THE EVENING WITH FOOD 180 tablet 2 insulin degludec (Tresiba FlexTouch) 100 UNIT/ML injection Administer 10 units subcutaneously once daily 3 mL 12 Lancets misc Use to test blood sugar 2 times daily 100 each 5 levothyroxine (Synthroid, Levoxyl) 50 MCG tablet TAKE 1 TABLET BY MOUTH EVERY MORNING 90 tablet 2 Linzess 290 MCG capsule TOME MCKAYLA AMAYA TOLANGE [employer] [place] mirtazapine (Remeron) 45 MG tablet Take 45 mg by mouth at bedtime. naloxone (Narcan) 4 mg/0.1 mL nasal spray Administer 1 spray (4 mg) into affected nostril(s) if needed for opioid reversal or respiratory depression. May repeat every 2-3 minutes if needed, alternating nostrils, until medical assistance becomes available. 2 each 0 omeprazole (PriLOSEC) [address] capsule TAKE 1 CAPSULE ORALLY DAILY oxyCODONE (Roxicodone) 5 MG immediate release tablet Take 1 tablet (5 mg) by mouth if needed each day for severe pain. 28 tablet 0 pen needle 32G x 4 mm misc Use daily with insulin 100 each 11 prazosin (Minipress) 1 MG capsule QUEtiapine XR (SEROquel XR) 200 MG 24 hr tablet Take 200 mg by mouth at bedtime. terconazole (Terazol 3) 0.8 % vaginal cream PLACE 1 APPLICATION VAGINALLY TODOS LOS D AL ACOSTARSE FOR 3 DAYS Tirzepatide (Mounjaro) 5 MG/0.5ML solution auto-injector Inject 5 mg under the skin 1 (one) time per week. 2 mL 5 No current facility-administered medications for this visit. [2] Past Medical History: Diagnosis Date CKD (chronic kidney disease) Depression Diabetes mellitus (HCC) HLD (hyperlipidemia) Hypertension [3] History reviewed. No pertinent surgical history. [4] No family history on file. [5] No Known Allergies documented in this encounter Plan of Treatment Upcoming Encounters Date Type Department Care Team (Late st Contact Info) Description 03/25/2025 2:00 PM EST Medication Management [facility] MEDICINE [address] [place], [place] [phone] Denis Rodgers, PharmD [address] [place] [address] 05/09/2025 2:00 PM EST Clinical Support [facility] CHC MED & PEDS [address] [place], [place] [phone] Rhonda Valdez, RN [address] [place] [address] documented as of this encounter Goals Goal Patient Goal Type Associated Problems Recent Progress Patient-Stated? Author Blood Pressure < 140/90 Blood Pressure 124/66( 025 2:22 PM EST) No Denis Rodgers, PharmD Help patients manage their type 2 diabetes Care Plan Help patients manage their type 2 diabetes No Francesca Martinez OD Weekly blood pressure task Care Plan Weekly blood pressure task No Francesca Martinez OD Help patients manage their type 2 diabetes Care Plan Help patients manage their type 2 diabetes No Francesca Martinez OD Patient has chronic kidney disease Care Plan Patient has chronic kidney disease No Francesca Martinez OD Weekly blood pressure task Care Plan Weekly blood pressure task No Francesca Martinez OD Patient has chronic kidney disease Care Plan Patient has chronic kidney disease No Francesca Martinez OD documented as of this encounter Visit Diagnoses Diagnosis Type 2 diabetes mellitus without ophthalmic manifestations (HCC)- Primary Presence of intraocular lens Dry eyes, bilateral Presbyopia documented in this encounter Additional Health Concerns Active Problems Noted Date Diagnosed Date Help patients manage their type 2 diabetes 02/22 Weekly blood pressure task 02/22/2025 Help patients manage their type 2 diabetes 02/22 Patient has chronic kidney disease 02/22/2025 Weekly blood pressure task 02/22/2025 Patient has chronic kidney disease 02/22/2025 Assessment Noted Time PHQ-9 Depression Total Score: 12 025 10:09 AM EDT documented as of this encounter Care Teams Livestock Showman Relationship Specialty Start Date End Date Kathryn Jarquin MD [address] [place] [address] PCP - General Family Medicine 04/04/18 Denis Rodgers, NamitaD [address] [place] [address] Pharmacist Internal Medicine 10/22/22 documented as of this encounter
[2025-02-24] VITALS (7 sets, daily range): BP systolic 95–145; BP diastolic 55–69; PULSE 80–102; RESP 14–20; TEMP 36.7–39.1; O2SAT 93–95; BMI 26.3
--- NOTE | ~2025-02-24 | XR_ITS ---
CLINICAL HISTORY: chest pain cough 2 view chest x-ray Comparison: CR/[place]/SR - XR CHEST 2 VIEWS - 09/08/23 19:46 EDT Findings: No consolidation, pleural effusion or pneumothorax. Bilateral perihilar opacities. Normal size heart. No acute fracture. IMPRESSION: 1. Mild hypoventilation. 2. Bilateral perihilar opacities secondary to bronchovascular crowding or pneumonitis. 3. No segmental pneumonia. No significant pleural effusion. This document has been electronically signed by: Denise Guillen DO on 02/24/2025 17:07:35
--- NOTE | ~2025-02-24 | CT_ITS ---
CLINICAL HISTORY: cough, fever, sepsis unknown source CT chest without contrast Comparison: CR - XR CHEST 2V - 02/24/25 15:58 EST Findings: Limited evaluation without intravenous contrast. The heart is normal size. Significant coronary artery disease. No pericardial effusion. Atherosclerotic vascular disease with no aneurysm of thoracic aorta. Airspace opacity in the lingula medially. Mild right middle lobe and inferior lingular atelectasis. Bilateral small calcified nodule suggestive of healed granulomatous disease. No pleural effusion or pneumothorax Visualized thyroid and thoracic esophagus within normal limits. The visualized upper abdomen demonstrates no acute findings. No acute fractures. IMPRESSION: 1. Medial lingular airspace opacity suspicious for pneumonia. 2. Additional nonacute findings as described. This document has been electronically signed by: Sharyn Gutierrez MD on 02/24/2025 20:44:59
--- NOTE | 2025-02-24 14:26 | ECG_ITS ---
Test Reason : chest pain Blood Pressure : */* mmHG Vent. Rate : 109 BPM Atrial Rate : 109 BPM P-R Int : 136 ms QRS Dur : 68 ms QT Int : 328 ms P-R-T Axes : 32 57 69 degrees QTcB Int : 441 ms Sinus tachycardia Otherwise normal ECG When compared with ECG of 08-Sep-2023 19:57, Nonspecific T wave abnormality now evident in Inferior leads Referred By: Generic ED Physician Electronically Signed By: Walt Burton
--- NOTE | 2025-02-24 15:11 | ED.GENADULT ---
HPI - General Adult General Chief complaint: Chest Pain Stated complaint: CP Time Seen by Provider: 02/24/25 18:30 History of Present Illness ED Provider: Jassi Gregg MD HPI narrative: 69-year-old female presents with left-sided chest discomfort at triage reported paresthesia left arm Related Data Home Medications ?Medication ?Instructions ?Recorded ?Confirmed aspirin 81 mg tablet,delayed 81 mg PO DAILY 06/10/20 01/17/25 release (Adult Aspirin Regimen) chlorthalidone 50 mg tablet 25 mg PO DAILY 03/23/21 01/17/25 fluoxetine 20 mg capsule 20 mg PO TID 03/23/21 01/17/25 mirtazapine 45 mg tablet 45 mg PO BEDTIME 03/23/21 01/17/25 cholecalciferol (vitamin D3) 25 25 mcg PO DAILY 08/04/22 01/17/25 mcg (1,000 unit) capsule (Vitamin D3) levothyroxine 50 mcg tablet 50 mcg PO QAM 08/04/22 01/17/25 prazosin 1 mg capsule 1 mg PO BEDTIME 08/04/22 01/17/25 atorvastatin 80 mg tablet 80 mg PO BEDTIME 04/19/23 01/17/25 clonidine HCl 0.1 mg tablet 0.1 mg PO BID PRN Panic Attack(S) 04/19/23 01/17/25 glipizide 5 mg tablet 5 mg PO BID 04/19/23 01/17/25 hydralazine 25 mg tablet 25 mg PO BID 04/25/23 01/17/25 quetiapine 200 mg tablet,extended 200 mg PO BEDTIME 05/31/24 01/17/25 release 24 hr docusate sodium 100 mg capsule 100 mg PO DAILY PRN Constipation 09/28/24 01/17/25 (Colace) tirzepatide 5 mg/0.5 mL 5 mg subcut TU 10/02/24 01/17/25 subcutaneous pen injector (Giulianounjaro) insulin degludec 100 unit/mL (3 10 unit subcut DAILY 12/25/24 01/17/25 mL) subcutaneous pen (Tresiba FlexTouch U-100 insulin) lisinopril 40 mg tablet 40 mg PO DAILY 12/25/24 01/17/25 albuterol sulfate 0.63 mg/3 mL 0.63 mg inhalation QID PRN 12/26/24 01/17/25 solution for nebulization Shortness Of Breath Or Wheezing albuterol sulfate 90 mcg/actuation 2 puff inhalation Q4-6H PRN 12/26/24 01/17/25 aerosol inhaler Shortness Of Breath Or Wheezing amlodipine 5 mg tablet 5 mg PO DAILY 12/26/24 01/17/25 Previous Rx's ?Medication ?Instructions ?Recorded acetaminophen 500 mg tablet 500 mg PO Q6H PRN pain #30 tabs 07/22/24 (Tylenol Extra Strength) clonazepam 2 mg tablet (Klonopin) 2 mg PO BEDTIME #2 tabs 10/03/24 lorazepam 1 mg tablet (Ativan) 1 mg PO ONCE anxiety #1 tab 10/04/24 omeprazole 40 mg capsule,delayed 40 mg PO DAILY #90 caps 11/08/24 release linaclotide 290 mcg capsule 290 mcg PO QAM #30 caps 11/14/24 (Linzess) oxycodone 5 mg tablet 5 mg PO Q24H PRN pain #10 tabs 01/16/25 terconazole 0.8 % vaginal cream 1 appful vaginal BEDTIME 3 days 01/23/25 #20 grams amoxicillin 875 mg-potassium 1 tab PO BID 7 days #14 tabs 02/24/25 clavulanate 125 mg tablet azithromycin 250 mg tablet 250 mg PO DAILY 4 days #4 tabs 02/24/25 magnesium 200 mg tablet 200 mg PO BID 2 weeks #28 tabs 02/24/25 Allergies Allergy/AdvReac Type Severity Reaction Status Date / Time No Known Allergies (NO KNOWN Allergy Unknown UNKNOWN Verified 02/24/25 15:13 ALLERGIES) [facility] Past Medical History Medical History Hypothyroidism Anemia Right knee pain Asthma Back pain Arthritis Dysuria Chronic kidney disease Diabetes 1.5, managed as type 2 HTN (hypertension) KIRSTIE (stress urinary incontinence, female) Urge incontinence Chronic idiopathic constipation GERD (gastroesophageal reflux disease) Irritable bowel syndrome with constipation Surgical History Hx of hernia repair H/O tubal ligation Hx of section H/O: hysterectomy History of esophagogastroduodenoscopy (EGD) Hx of colonoscopy (04/2023) Family History Family History Father Family hx of prostate cancer Cancer Brother Cancer Mother HTN (hypertension) Maternal Aunt Skin cancer, Onset Age: 59 Social History Social History Household Members: Family and None Housing: Apartment Are you a primary career development counselor to a significant other at home: No Do you presently have visiting nurse or other home services: Yes ([employer] 2 x day) Alcohol intake: never Patient Tobacco Use Status: Never used Tobacco Smoked in Last 30 Days: No e-Cigarette/Vaping Use: Never Used Use of substances other than those prescribed or required for medical reasons: No Advance Directives: Yes Advance Directives on File: Yes Advance Directives Date on File: 09/28/24 Current occupational status: disabled Physical Exam ED Vital Signs: Vital Signs - 24 hr 02/24/25 15:11 02/24/25 18:33 02/24/25 20:00 Temperature 98.1 F 102.3 F H 99.0 F Pulse Rate 102 H 86 Respiratory Rate 18 14 Blood Pressure 145/69 H 109/55 L Pulse Oximetry 93 94 Oxygen Delivery Method Room Air Room Air 02/24/25 20:16 02/24/25 20:18 02/24/25 21:19 Temperature 99 F 99.0 F 99.0 F Pulse Rate 84 80 Respiratory Rate 17 20 Blood Pressure 130/66 95/60 Pulse Oximetry 95 94 Oxygen Delivery Method Room Air Room Air BMI result Body Mass Index 26.3 Course Course Course Narrative: Rapid medical examination performed in triage by Kavita Guzmán PA-C: Patient is a 69 year old assigned female at presenting to the emergency department with numbness and tingling in the RUE and chest pain x3 days. Detailed physical exam and review of systems are deferred to the buffet server. EKG, labs, imaging, swabs ordered. Patient placed back in the waiting room pending room availability and results. Medications Administered Discontinued Medications Generic Name Dose Route Start Last Admin Trade Name Freq PRN Reason Stop Dose Admin Acetaminophen 975 mg 02/24/25 18:32 02/24/25 18:48 Acetaminophen 325 Mg Tablet PO 02/24/25 18:33 975 mg ONCE ONE Administration Azithromycin 250 mg 02/24/25 20:56 02/24/25 21:13 Azithromycin 250 Mg Tablet PO 02/24/25 20:57 250 mg ONCE ONE Administration Magnesium Sulfate 2 gm in 50 mls @ 150 mls/hr 02/24/25 18:32 02/24/25 19:26 Magnesium Sulfate/H2o IV 02/24/25 18:51 Infused ONCE ONE Infusion Sodium Chloride 1,000 mls @ 999 mls/hr 02/24/25 18:45 02/24/25 20:09 Ns IV 02/24/25 19:45 Infused .Q1H1M KRISTIE Infusion Ceftriaxone Sodium 1 gm/ 50 mls @ 100 mls/hr 02/24/25 18:32 02/24/25 19:26 Sodium Chloride IV 02/24/25 19:01 Infused ONCE ONE Infusion Magnesium Oxide 800 mg 02/24/25 20:56 02/24/25 21:12 Magnesium Oxide 400 Mg Tablet PO 02/24/25 20:57 800 mg ONCE ONE Administration Medical Decision Making Medical Decision Making MDM Narrative: Medical Decision Makin-year-old female with intermittent chest discomfort atypical and nonexertional. No ischemia on ECG. She did have a fever here. She had some vague paresthesias in the left arm but no focal deficits or sensory loss. Lab work is reassuring. CT chest shows lingular infiltrate suggesting pneumonia. The patient preferred to be discharged home we discussed risks benefits and return precautions she and the family at the bedside understood these. Preliminary Favored Differential Diagnosis: ACS, musculoskeletal pain, pneumonia, pleuritis among additional considered etiologies Testing Interpreted Independently: ?EKG without ischemic changes sinus tachycardia rate 109 Radiology or Lab testing Results Reviewed: ?See below for details Consults: ?See below for details Independent Historians/External Chart Reviews: ?See below for details Social Determinants of Health Impacting MDM/Planning: ?See below for details Lab Data MDM Lab Attestation statement: I reviewed the patient's lab results. 02/24/25 16:06 02/24/25 15:29 Labs: Lab Results 02/24/25 02/24/25 02/24/25 Range/Units 15:29 16:06 18:54 WBC 24.2 H (4.8-10.8) X10*3/uL RBC 4.73 (4.20-5.50) X10*6/uL Hgb 12.8 (12.0-16.0) g/dl Hct 40.0 (37.0-47.0) % MCV 84.6 (80.0-98.0) fL MCH 27.1 (27.0-33.0) pg MCHC 32.0 (31.0-35.0) g/dl RDW 13.8 (11.0-16.0) % Plt Count 226 (160-400) X10*3/uL MPV 11.1 (9.4-12.3) fL Immature Gran % (Auto) 0.7 H (0.0-0.4) % Neut % (Auto) 81.7 H (45-73) % Lymph % (Auto) 10.0 L (20-40) % [place] % (Auto) 7.1 (2-11) % Eos % (Auto) 0.2 (0-4) % Baso % (Auto) 0.3 (0-2) % Lymph # (Auto) 2.4 (1.2-4.9) X10*3/uL [place] # (Auto) 1.7 H (0.1-1.2) X10*3/uL Eos # (Auto) 0.1 (0.0-0.4) X10*3/uL Baso # (Auto) 0.1 (0.0-0.2) X10*3/uL Abs Immat Gran (auto) 0.17 H (0.00-0.03) X10*3/uL Absolute Neuts (auto) 19.7 H (2.0-8.3) x10*3/uL Absolute Nucleated RBC 0.000 (0.0-0.012) X10*3/uL Nucleated RBC % (auto) 0.0 (0.0-0.2) /100WBC Smear Tech's Comments VERIFIED PT 11.4 (11.2-13.5) SEC INR 0.9 (0.9-1.1) Sodium 139 (135-145) mmol/L Potassium 4.2 (3.3-5.1) mmol/L Chloride 101 (96-108) mmol/L Carbon Dioxide 26 (22-29) mmol/L Anion Gap 16 (12-20) BUN 29 H (9-16) mg/dL Creatinine 1.41 H (0.5-1.4) mg/dL Estim Creat Clear Calc 29.8 Estimated GFR 37 Random Glucose 258 H (60-115) mg/dL Lactic Acid 1.9 (0.5-2.0) mmol/L Calcium 10.3 H D (8.4-10.2) mg/dL Magnesium 1.4 L* (1.6-2.6) mg/dL Total Bilirubin 0.5 (0.0-1.0) mg/dL AST 54 H (5-31) U/L ALT 27 (0-31) U/L Alkaline Phosphatase 175 H (39-117) U/L Troponin I High Sens 3.5 (<3.5-17.0) ng/L NT-Pro-B Natriuret Pep 417.7 H (<300) pg/mL Total Protein 7.8 (6.5-8.0) g/dL Albumin 4.4 (3.5-5.0) g/dL Influenza Type A (PCR) NEGATIVE (Negative) Influenza Type B (PCR) NEGATIVE (Negative) RSV RNA Qual (PCR) NEGATIVE (Negative) SARS-CoV-2 RNA (RT-PCR) NEGATIVE (Negative) Discharge Plan Discharge Clinical Impression: Hypomagnesemia, Pneumonia Patient Disposition: Home, Self-Care Instructions: Chest Pain (DC), Community Acquired Pneumonia (DC), Hypomagnesemia (ED) Additional Instructions: DISCHARGE DIAGNOSES: Chest pain unclear cause could be from pneumonia or musculoskeletal cause. Heart attack enzyme negative and EKG reassuring Fever: Pneumonias found on CT scan of your chest likely explaining this Low magnesium level HISTORY OF PRESENTATION: ?Chest discomfort EMERGENCY DEPARTMENT COURSE,TESTS, TREATMENTS: While in the ED today lab work showed low magnesium, CT showed pneumonia. Lab work showed elevated white blood cell count and low magnesium level DISCHARGE MEDICATIONS: ?Antibiotics, magnesium FOLLOW-UP: ?Call your primary or general physician soon as possible to discuss your symptoms, your ED visit and to discuss follow up plans Call your primary doctor 1st thing tomorrow morning to discuss follow up you will need to be seen for reassessment within 3-5 days INSTRUCTIONS ?& RETURN PRECAUTIONS: If any symptoms change first call your primary physician, if it is after-hours your primary doctors office should have a provider quality control systems manager you can speak with. If the symptoms are severe or very concerning to you then call 911 or return to the ED. Return for difficulty breathing in the severe worsening chest pain inability to tolerate your antibiotic medication by mouth. We recommend you take your antibiotics with food him at least have 1 or 2 yogurt per day while taking the antibiotic you also need to have your primary doctor evaluate chest discomfort which at your age could be something more serious than use outpatient workup for Jassi Gregg MD Emergency Physician [facility] Prescriptions: New azithromycin 250 mg tablet 250 mg PO DAILY 4 Days Qty: 4 0RF amoxicillin-pot clavulanate 875-125 mg tablet 1 tab PO BID 7 Days Qty: 14 0RF magnesium 200 mg tablet 200 mg PO BID 14 Days Qty: 28 0RF No Action omeprazole 40 mg capsule,delayed release(DR/EC) 40 mg PO DAILY Qty: 90 2RF Linzess 290 mcg capsule 290 mcg PO QAM Qty: 30 6RF oxycodone 5 mg tablet 5 mg PO Q24H PRN (Reason: pain) Qty: 10 0RF Rx Instructions: Partial Fill upon patient request. docusate sodium [Colace] 100 mg capsule 100 mg PO DAILY PRN (Reason: Constipation) Mounjaro 5 mg/0.5 mL pen injector 5 mg subcut TU clonazepam [Klonopin] 2 mg tablet 2 mg PO BEDTIME Qty: 2 0RF Rx Instructions: administer 30 minutes before bedtime lisinopril 40 mg Tablet 40 mg PO DAILY insulin degludec [Tresiba FlexTouch U-100] 100 unit/mL (3 mL) insulin pen 10 unit subcut DAILY albuterol sulfate 0.63 mg/3 mL Solution For Nebulization 0.63 mg INHALATION QID PRN (Reason: Shortness Of Breath Or Wheezing) amlodipine 5 mg Tablet 5 mg PO DAILY albuterol sulfate [ProAir HFA] 90 mcg/actuation Hfa Aerosol Inhaler 2 puff INHALATION Q4-6H PRN (Reason: Shortness Of Breath Or Wheezing) acetaminophen [Tylenol Extra Strength] 500 mg tablet 500 mg PO Q6H PRN (Reason: pain) Qty: 30 0RF aspirin [Adult Aspirin Regimen] 81 mg tablet,delayed release (DR/EC) 81 mg PO DAILY chlorthalidone 50 mg tablet 25 mg PO DAILY fluoxetine 20 mg capsule 20 mg PO TID mirtazapine 45 mg tablet 45 mg PO BEDTIME terconazole 0.8 % cream 1 appful vaginal BEDTIME 3 Days Qty: 20 0RF lorazepam [Ativan] 1 mg tablet 1 mg PO ONCE Qty: 1 0RF Rx Instructions: Take 30 minutes prior to arrival to procedure cholecalciferol (vitamin D3) [Vitamin D3] 25 mcg (1,000 unit) capsule 25 mcg PO DAILY prazosin 1 mg capsule 1 mg PO BEDTIME levothyroxine 50 mcg tablet 50 mcg PO QAM hydralazine 25 mg tablet 25 mg PO BID clonidine HCl 0.1 mg tablet 0.1 mg PO BID PRN (Reason: Panic Attack(S)) atorvastatin 80 mg tablet 80 mg PO BEDTIME glipizide 5 mg tablet 5 mg PO BID quetiapine 200 mg tablet extended release 24 hr 200 mg PO BEDTIME Interventions: ED Discharge Assessment Last Done: 02/24/25 21:19 Discharge Date/Time: 02/24/25 21:19 Print Language: Romanian
[2025-02-24 15:45] LABS: INTERNATIONAL NORM RATIO 0.9 (0.9-1.1); Prothrombin Time 11.4 SEC (11.2-13.5)
[2025-02-24 15:55] LABS: Alanine Aminotransferase 27 U/L (0-31); Albumin Level 4.4 g/dL (3.5-5.0); Alkaline Phosphatase 175 U/L (39-117); Anion Gap 16 (12-20); Aspartate Amino Transferase 54 U/L (5-31); Blood Urea Nitrogen 29 mg/dL (9-16); Calcium 10.3 mg/dL (8.4-10.2); Carbon Dioxide 26 mmol/L (22-29); Chloride 101 mmol/L (96-108); Creatinine Clr Calc Pharmacy 29.8; Estimated Glomerular Filt Rate 37; Magnesium 1.4 mg/dL (1.6-2.6); Potassium 4.2 mmol/L (3.3-5.1); Sodium 139 mmol/L (135-145); Total Protein 7.8 g/dL (6.5-8.0)
[2025-02-24 15:59] LABS: Troponin-I High Sensitivity 3.5 ng/L (<3.5-17.0)
[2025-02-24 16:14] LABS: Resp Syncy Virus RNA Qual PCR NEGATIVE (Negative); SARS COV2 PCR INHOUSE NEGATIVE (Negative)
[2025-02-24 16:16] LABS: Hematocrit 40.0 % (37.0-47.0); Hemoglobin 12.8 g/dl (12.0-16.0); Imm Gran Abs Auto 0.17 X10*3/uL (0.00-0.03); Imm Gran Pct Auto 0.7 % (0.0-0.4); Lymphocytes Absolute Auto 2.4 X10*3/uL (1.2-4.9); MANUAL DIFF FLAG SCAN; Mean Corpuscular HGB Conc 32.0 g/dl (31.0-35.0); Mean Corpuscular Hemoglobin 27.1 pg (27.0-33.0); Mean Corpuscular Volume 84.6 fL (80.0-98.0); NRBC Abs Auto 0.000 X10*3/uL (0.0-0.012); NRBC Pct Auto 0.0 /100WBC (0.0-0.2); Platelet Count 226 X10*3/uL (160-400); Red Blood Count 4.73 X10*6/uL (4.20-5.50); SCAN SMEAR FLAG 1; White Blood Count 24.2 X10*3/uL (4.8-10.8)
[2025-02-24] MEDS: Magnesium Sulfate/H2O 2 GM/50 ML PIGGYBACK IV (18:50)
[2025-02-24 19:08] LABS: NT Pro B Type Natriuretic Pept 417.7 pg/mL (<300)
--- NOTE | 2025-02-24 19:27 | PC.NURSE ---
[place] speaking with family at bedside Patient presents to ED c/o chest calix that radiates down left arm thats been persistent for three days patient had oral fever of 102.3, tylenol given effectiveness pending IV 20G in Left forearm Currently running 1L NS Patient received IV mag and ceftriaxone Blood collected / sent provider in to see patient plan of care on going
--- OUTSIDE RECORDS SUMMARY | 2025-02-24 19:30 | XMS_ITS | Clinical Summary ---
Author Organization [employer] Address [address] [facility] [address] [place] [address] Care Team Providers Care Manager Managed Care Name Role Phone Kathryn Jarquin MD Primary Care Provider [phone] Denis Rodgers PharmD Unavailable [phone] Allergies No known active allergies Medications * [...] each Active Blood Glucose Monitoring Suppl (FreeStyle [place] Lite) w/Device kit Use to test blood sugar 2 times daily 1 kit Active insulin degludec (Tresiba FlexTouch) 100 UNIT/ML injection Administer 10 units subcutaneously once daily 3 mL Active glucose 4 g chewable tabletIndicatio ns:Type [...] (HCC) Use daily with insulin 100 each 2025 Active atorvastatin (Lipitor) 80 MG tablet TAKE 1 TABLET BY MOUTH AT BEDTIME 90 tablet Active Aspirin EC Adult Low Dose 81 MG EC tablet TAKE 1 TABLET BY MOUTH AT BEDTIME 90 tablet Active estradiol (Estrace) 0.1 MG/GM vaginal cream INSERT 1 GRAM VAGINALLY WITH APPLICATORFUL AT BEDTIME TWICE EACH WEEK 08/12/2 025 Active Tirzepatide (Mounjaro) 5 MG/0.5ML solution auto-injectorIn dications:Type 2 diabetes mellitus with stage 3b chronic kidney disease, without long-term current use of insulin ([facility]) Inject 5 mg under the skin 1 (one) time per week. 2 mL 5 025 Active Continuous Glucose Senior Stock Plan Administrator (FreeStyle Godfrey 3 [place]) deviceIndicatio ns:Type 2 diabetes mellitus with stage 3b chronic kidney disease, without long-term current use of insulin ([facility]) 1 each Once per day. Use as directed for CGM 1 each 025 Active Continuous Glucose Sensor (FreeStyle Godfrey 3 Plus Sensor) miscIndications :Type 2 diabetes mellitus with stage 3b chronic kidney disease, without long-term current use of insulin ([facility]) 1 each every 15 days. Apply 1 every 15 days as directed for CGM 2 each 02/22/20 25 8:30 AM EST 025 Active glucose blood (FreeStyle Precision Edi Test) test stripIndication s:Type 2 diabetes mellitus with stage 3b chronic kidney disease, without long-term current use of insulin ([facility]) Use to test blood sugar 2 times daily in case of CGM failure or extremes of BG 50 each 025 2025 Active hydrALAZINE (Apresoline) 25 MG tablet TAKE 1 TABLET BY MOUTH TWICE DAILY IN THE MORNING AND IN THE EVENING WITH FOOD 180 tablet 2 Active D3-1000 25 MCG (1000 UT) capsule TAKE 1 CAPSULE BY MOUTH EVERY MORNING 90 capsule 2 025 Active levothyroxine (Synthroid, Levoxyl) 50 MCG tabletIndicatio ns:Hypothyroidi sm (acquired) TAKE 1 TABLET BY MOUTH EVERY MORNING 90 tablet 2 025 Active acetaminophen (Tylenol Extra Strength) 500 MG tablet Take 2 tablets (1,000 mg) by mouth every 8 (eight) hours if needed for mild pain or moderate pain. 60 tablet 2 025 Active terconazole (Terazol 3) 0.8 % vaginal cream PLACE 1 APPLICATION VAGINALLY TODOS LOS D AL ACOSTARSE FOR 3 DAYS 025 Active oxyCODONE (Roxicodone) 5 MG immediate release tabletIndicatio ns:Upper back pain,Chronic pain of both knees,Chronic female pelvic pain,Chronic pain syndrome Take 1 tablet (5 mg) by mouth if needed each day for severe pain. 28 tablet 02/14/20 25 4:14 PM EST 025 Active oxyCODONE (Roxicodone) 5 MG immediate release tabletIndicatio ns:Upper back pain,Chronic pain of both knees,Chronic female pelvic pain,Chronic pain syndrome Take 1 tablet (5 mg) by mouth if needed each day for severe pain. Do not start before January 16, 2025. 28 tablet 025 2024 Discontinued(R eorder (will not trigger notification to Pharmacy)) carbamide peroxide (Debrox) 6.5 % otic solution Administer 5-10 drops into affected ear(s) 2 times daily for 4 days. 30 mL 025 2024 Active Problems Problem Noted Date Diagnosed Date Class 1 obesity with serious comorbidity and body mass index (BMI) of 32.0 to 32.9 in adult 12/19/2024 Chronic back pain 10/29/2024 Assessment & Plan (01/25/2025 1:41 AM EDT): - lumbar spondylosis - following with [facility] pain management, plan for MBB. - Patient will call to reschedule appointment - continue judicious use of APAP and oxycodone - avoid NSAID/COX2i Assessment & Plan (10/29/2024 12:17 PM EDT): - lumbar spondylosis - following with [facility] pain management, plan for MBB. - Patient will call to reschedule appointment - continue judicious use of APAP and oxycodone - avoid NSAID/COX2i Type 2 diabetes mellitus wit h kidney complication, with long-term current use of insulin 10/03/2024 Assessment & Plan (02/04/2025 3:20 PM EST): - A1c 7.4% on 12/19/2024, improve from 9.9% on 08/07/24, personal best was A1c 6.8% on 05/02/23 - continue working on lifestyle modifications - Current treatment: Glipizide 5 mg bid. Will consider switching to SGLT2i. Or consider changing to glimepride due to her age (although recent study showed no significant difference with glipizide). Can discontinue once her glycemic control improves - Increase tirzepatide to 7.5 mg weekly if tolerated - Continue Tresiba 10 units Treatment Hx: Previously on Metformin which was discontinued due to worsening renal function Relative contraindication to SGLT-2 inhibitor due to recurrent UTI/vaginal candidiasis / UI. Previously on bolus insulin, which was discontinued since she was going to start GLP1RA Last eye exam: [facility]. Nov 2023. Last foot exam: 2024 Last microalbumin test: 03/29/24 UACR 10.2 Last lipid profile: 03/29/24 may need intensifying therapy by adding zetia. Questionable adherence. Long-term current use of opiate analgesic 2024 [...] 04/11/2023 04/26/2023 History of smoking 01/07/2023 Metabolic dysfunction-associ ated steatotic liver disease (MASLD) 01/07/2023 Assessment & Plan (01/25/2025 1:40 AM EDT): - followed by [facility] GI - Work on achieving healthy weight and diet Assessment & Plan (08/07/2024 9:08 AM EDT): - followed by [facility] GI - Work on achieving healthy weight and diet Assessment & Plan (04/05/2024 5:43 AM EST): - followed by [facility] GI - Work on achieving healthy weight and diet Assessment & Plan (05/08/2023 12:06 PM EST): - followed by [facility] GI - Work on achieving healthy weight and diet Knee pain 01/07/2023 Assessment & Plan (02/04/2025 3:25 PM EST): - following with [facility] Ortho - MRI on 08/26/24: subtle radial tearing of medial meniscus; degeneration of lateral meniscus; mild thickening of fibular collateral ligament on the lateral femoral condyle; subtle chondrocalcinosis in medial and lateral compartments; mild tricompartmental osteoarthritis; prepatellar bursitis - s/p right arthroscopic partial medial meniscectomy on 01/17/2025 - continue following recommendations by Dr. Watkins - continue judicious use of oxycodone Assessment & Plan (10/29/2024 12:10 PM EDT): - following with [facility] Ortho, last seen in July 2024 - [...] (08/12/2024 6:43 AM EDT): - following with [facility] Ortho - MRI on 08/26/24: subtle radial [...] 6:33 AM EDT): - taking oxycodone under MEDICAL ADVISOR agreement since Mar 2024 - evaluated by security system installer and given reassurance for no gynecological abnormality - upcoming appointment with GI and pain management - continue current behavioral health service Assessment & Plan (04/05/2024 5:40 AM EST): - Takes non-prescribed oxycodone to try and relieve the pain and help her sleep - Will start at low dose oxycodone only one at bedtime; discussed about its judicious use and the importance of attending MEDICAL ADVISOR appt Assessment & Plan (10/30/2022 4:06 PM EDT): - seen by urogynecologist, security system installer, general surgeon, and GI - Will check [...] (08/12/2022 4:18 PM EDT): - seen by security system installer, general surgeon, and GI - Will check [...] last seen in 2020 - seen by [facility] in September 2023 - check UA/ UCx - hold restarting oxybutynin due to current urinary retention - advised to reschedule appointment with urogyn Assessment & Plan (05/08/2023 12:09 PM EST): - Hx OAB, on oxybutynin, previously following with Dr. Peñaloza, last seen in 2020 - seen by [facility] in August 2022, upcoming follow-up appt - check UA/ UCx - hold restarting oxybutynin due to current urinary retention Assessment & Plan (10/30/2022 4:09 PM EDT): - Hx OAB, on oxybutynin, previously following with Dr. Peñaloza, last seen in 2020 - seen by [facility] in August 2022, upcoming follow-up [...] UTI today. Hypothyroidism 06/03/2022 Assessment & Plan (01/25/2025 1:40 AM EDT): -Negative thyroid peroxidase antibody -Current replacement: levothyroxine 75 mcg daily -Last TSH was therapeutic in Mar 2024 Assessment & Plan (08/12/2024 6:47 AM EDT): [...] LT4 accordingly Stage 3b chronic kidney disease (CMS/HCC) 2022 Assessment & Plan (02/04/2025 3:21 PM EST): -following with sealing and canceling machine operator, last seen in May 2024 -avoid nephrotoxic drugs -no longer on metformin or ACEI/ARB -consider SGLT2i (relative contraindication due to LUTS) Assessment & Plan (10/29/2024 12:14 PM EDT): -following with sealing and canceling machine operator, last seen in May 2024 -avoid nephrotoxic drugs -no longer on metformin or ACEI/ARB -consider SGLT2i (relative contraindication due to LUTS) Assessment & Plan (08/12/2024 6:38 AM EDT): -following with sealing and canceling machine operator, last seen in May 2024 -avoid nephrotoxic drugs -no longer on metformin or ACEI/ARB -consider SGLT2i Assessment & Plan (04/05/2024 5:47 AM EST): -following with sealing and canceling machine operator, last seen in Nov 2023 -avoid nephrotoxic drugs -no longer on metformin -consider SGLT2i Assessment & Plan (05/08/2023 12:00 PM EST): -following with sealing and canceling machine operator -avoid nephrotoxic drugs -no longer on metformin -clarify with GI whether patient needs to be on PPI Assessment & Plan (10/30/2022 4:11 PM EDT): -follow up with sealing and canceling machine operator -avoid nephrotoxic drugs -adjust medication: metformin ER to 500 mg bid - lab review: 08/10/22 K 4.6; BUN 28; Scr 1.0 ; eGFR 56; Bicarb 28 Assessment & Plan (08/09/2022 11:50 AM EDT): -follow up with sealing and canceling machine operator -avoid nephrotoxic drugs -adjust medication: metformin ER to 500 mg bid Assessment & Plan (06/03/2022 2:31 AM EST): -refer to sealing and canceling machine operator -avoid nephrotoxic drugs -adjust medication: metformin [...] September 2024. S/p hysterectomy. Benign finding. -Started MEDICAL ADVISOR with oxycodone 5 mg at night since Mar 2024 -Last MEDICAL ADVISOR visit on 08/01/24, pill count suggested misuse. [...] & Plan (08/12/2024 6:31 AM EDT): -Started MEDICAL ADVISOR with oxycodone 5 mg at night since Mar 2024 -Last MEDICAL ADVISOR visit on 08/01/24, pill count suggested misuse. [...] to start oxycodone under close monitoring with MEDICAL ADVISOR program; patient verbalized understanding -Discussed about increased [...] (08/07/2024 9:07 AM EDT): - followed by [facility] GI - check whether patient needs to be on PPI or can be changed to H2-hao as recommended by sealing and canceling machine operator Assessment & Plan (05/08/2023 12:02 PM EST): - followed by [facility] GI - check whether patient needs to be on PPI or can be changed to H2-hao as recommended by sealing and canceling machine operator Generalized anxiety disorder with panic attacks 01/23/2015 Assessment & Plan (04/05/2024 5:54 AM EST): -tremor, patient is able to stop tremor voluntarily -check TSH Assessment & Plan (06/03/2022 2:23 AM EST): -tremor -check TSH Irritable bowel syndrome 01/23/2015 Assessment & Plan (08/07/2024 9:07 AM EDT): GI: [facility], last visit in Apr 2023 Current medication: Linzess 290 mg daily Normal EGD and colonoscopy in [facility] in Jan 2013. Colonoscopy in Apr 2023 by [facility] GI, hyperplastic polyp. Repeat in 5 years. Assessment & Plan (04/05/2024 5:45 AM EST): GI: [facility], last visit in Apr 2023 Current medication: Linzess 290 mg daily Normal EGD and colonoscopy in [facility] in Jan 2013. Colonoscopy in Apr 2023 by [facility] GI, hyperplastic polyp. Repeat in 5 years. Assessment & Plan (10/30/2022 4:20 PM EDT): GI: [facility], last visit in 08/04/22 Current medication: Linzess 290 mg daily Normal EGD and colonoscopy in [facility] in Jan 2013. Anticipating another colonoscopy soon Assessment & Plan (08/12/2022 4:19 PM EDT): GI: [facility], last visit in 08/04/22 Current medication: Linzess 290 mg daily Normal EGD and colonoscopy in [facility] in Jan 2013. Anticipating another colonoscopy soon Assessment & Plan (06/03/2022 2:15 AM EST): GI: [facility], last visit in 08/11/21 Current medication: Linzess 290 mg daily Normal EGD and colonoscopy in [facility] in Jan 2013. Pt has to reschedule colonoscopy with GI Specialist Encouraged medication compliance Pt seems to have changed GI; will confirm Asthma 01/23/2015 Assessment & Plan (01/25/2025 1:45 AM EDT): -pt is using albuterol -consider LABA/ICS prn use -work on smoking cessation Assessment & Plan (08/07/2024 9:06 AM EDT): -pt is using albuterol -consider LABA/ICS prn use -work on smoking cessation Assessment & Plan (06/20/2023 5:43 AM EDT): >>ASSESSMENT AND PLAN FOR MODERATE PERSISTENT ASTHMA WRITTEN ON 06/01/2022 4:05 PM BY AMRIPOSA CHOI -pt is using albuterol -consider LABA/ICS prn use -work on smoking cessation Assessment & Plan (06/20/2023 5:43 AM EDT): >>ASSESSMENT AND PLAN FOR MODERATE PERSISTENT ASTHMA WRITTEN ON 08/09/2022 11:46 AM BY MARIPOSA CHOI -pt is using albuterol -consider LABA/ICS prn use -work on smoking cessation HTN (hypertension) 01/20/2015 Assessment & Plan (01/25/2025 1:35 AM EDT): -Goal BP < 130/80 per ACC/AHA guideline. Fluctuating BP (hypertensive previously, lately hypotensive resulting renal hypoperfusion) - BP elevated today, but recently hypotensive and home BP normal per patient. - Co-managed with Denis Rodgers RPh through CDTM and sealing and canceling machine operator -Work on lifestyle modifications, DASH diet and increase physical activity -continue amlodipine 5 mg daily -continue chlorthalidone 25 mg daily -continue Hydralazine 25 mg BID (sealing and canceling machine operator seems to be unaware of medication, will consider simplifying medication) -continue prazosin and clonidine, which are prescribed by psychiatrist, with caution -consider retial of ALEXIA inhibitors, either ACEI or ARB. -Tx Hx: Discontinued Amlodipine 5 mg daily, pt unable to tolerate side effects of leg swelling, yet restarted when lisinopril was discontinued. Assessment & Plan (10/29/2024 10:27 AM EDT): -Goal BP < 130/80 per ACC/AHA guideline. Fluctuating BP (hypertensive previously, lately hypotensive resulting renal hypoperfusion) - BP elevated today, but recently hypotensive and home BP normal per patient. - Co-managed with Denis Rodgers RPh through MADIETM and sealing and canceling machine operator -Work on lifestyle modifications, DASH diet and increase physical activity -continue amlodipine 5 mg daily -continue chlorthalidone 25 mg daily -continue Hydralazine 25 mg BID (sealing and canceling machine operator seems to be unaware of medication, will [...] with Denis Rodgers RPh through CDTM and sealing and canceling machine operator -Work on lifestyle modifications, DASH diet and increase physical activity -continue amlodipine 5 mg daily -continue chlorthalidone 25 mg daily -continue Hydralazine 25 mg BID (sealing and canceling machine operator seems to be unaware of medication, will [...] with Denis Rodgers RPh through CDTM and sealing and canceling machine operator -Work on lifestyle modifications, DASH diet and increase physical activity -continue amlodipine 5 mg daily -continue chlorthalidone 12.5 mg daily -continue Hydralazine 25 mg BID (sealing and canceling machine operator seems to be unaware of medication, will [...] - Comanaged with Denis Rodgers RPh through CDDEBRA and sealing and canceling machine operator -Work on lifestyle modifications, DASH diet and increase physical activity -continue lisinopril 20 mg daily -continue chlorthalidone 12.5 mg daily -continue Hydralazine 25 mg BID (sealing and canceling machine operator seems to be unaware of medication, will [...] goal today - Comanaged with Denis Rodgers [facility] through CDTM -Work on lifestyle modifications, [...] 2 diabetes mellitus 01/20/2015 Assessment & Plan (02/04/2025 3:17 PM EST): - A1c 7.4% on 12/19/2024, improve from 9.9% on 08/07/24, personal best was A1c 6.8% on 05/02/23 - continue working on lifestyle modifications - Current treatment: Glipizide 5 mg bid. Will consider switching to SGLT2i. Or consider changing to glimepride due to her age (although recent study showed no significant difference with glipizide). Can discontinue once her glycemic control improves - Increase tirzepatide to 7.5 mg weekly if tolerated - Continue Tresiba 10 units Treatment Hx: Previously on Metformin which was discontinued due to worsening renal function Relative contraindication to SGLT-2 inhibitor due to recurrent UTI/vaginal candidiasis / UI. Previously on bolus insulin, which was discontinued since she was going to start GLP1RA Last eye exam: [facility]. Nov 2023. Last foot exam: 2024 Last microalbumin test: 03/29/24 UACR 10.2 Last lipid profile: 03/29/24 may need intensifying therapy by adding zetia. Questionable adherence. Assessment & Plan (10/29/2024 10:27 AM EDT): [...] UTI/vaginal candidiasis / UI. Last eye exam: [facility]. Nov 2023. Last foot exam: 05/02/23 [...] candidiasis / UI. Last eye exam: [facility]. Nov 2023. Last foot exam: 05/02/23 Last [...] 3 mo Dyslipidemia 06/02/2012 Assessment & Plan (01/25/2025 1:33 AM EDT): Last lipid profile: 12/19/2024 Current medication: atorvastatin 80 mg at bedtime Consider adding Zetia Check medication adherence before adding Zetia Continue working on lifestyle modification Assessment & Plan (08/07/2024 9:10 AM EDT): [...] Repeat lab Continue working on lifestyle modification Recurrent major depression 09/27/2011 Assessment & Plan (02/04/2025 3:24 PM EST): -[facility] provider: [facility] -Continue current medications: clonazepam; fluoxetine; prazosin; clonidine; quetiapine Assessment & Plan (10/29/2024 12:15 PM EDT): -[facility] provider: [facility] -Continue current medications: clonazepam; fluoxetine; prazosin; clonidine; quetiapine Assessment & Plan (04/05/2024 5:54 AM EST): -[facility] provider: [facility] -Continue current medications: clonazepam; fluoxetine; prazosin; clonidine; quetiapine Assessment & Plan (05/08/2023 12:22 PM EST): -[facility] provider: [facility] -Continue current medications: clonazepam; fluoxetine; prazosin; clonidine; quetiapine Assessment & Plan (10/30/2022 4:18 PM EDT): -[facility] provider: [facility] -Continue current medications: clonazepam; fluoxetine; prazosin; clonidine; quetiapine Assessment & Plan (06/03/2022 2:22 AM EST): -[facility] provider: [facility] -Continue current medications: clonazepam; fluoxetine; prazosin; clonidine; quetiapine Resolved Problems Problem Noted Date Diagnosed Date Resolved Date Stage 4 chronic kidney disease ([facility]) 12/19/2024 12/21/2024 Suprapubic abdominal pain 01/07/2023 Assessment [...] Encounters Date Type Department Care Team Description 02/24/2025 Orders Only GENERIC EXTERNAL DATA DEPARTMENT Provider, Generic External Data 02/22/2025 1:45 PM EST Office Visit [facility] [address] [place] [address] Francesca Martinez, OD Type 2 diabetes mellitus without ophthalmic manifestations (HCC) (Primary Dx); Presence of intraocular lens; Dry eyes, bilateral; Presbyopia 02/22/2025 Travel 02/12/2025 Refill [facility] [address] [place] [address] Rhonda Valdez RN Upper back pain; Chronic pain of both knees; Chronic female pelvic pain; Chronic pain syndrome 02/12/2025 Telephone [facility] [address] [place] [address] Kathryn Jarquin MD telephone call 02/11/2025 Travel 02/05/2025 3:00 PM EST Clinical Support [facility] [address] [place] [address] Rhonda Valdez RN Chronic low back pain, unspecified back pain laterality, unspecified whether sciatica present (Primary Dx) 02/05/2025 Travel 01/24/2025 10:15 AM EDT Office Visit [facility] [address] [place] [address] Kathryn Jarquin MD Dyslipidemia (Primary Dx); Hypertension, unspecified type; Type 2 diabetes mellitus without complication, with long-term current use of insulin (HCC); Hypothyroidism, unspecified type; Metabolic dysfunction-associated steatotic liver disease (MASLD); Chronic pain of both knees; Chronic low back pain, unspecified back pain laterality, unspecified whether sciatica present; Moderate persistent asthma without complication; Encounter for immunization; Type 2 diabetes mellitus with retinopathy of both eyes, with long-term current use of insulin, macular edema presence unspecified, unspecified retinopathy severity (HCC); Type 2 diabetes mellitus with stage 3b chronic kidney disease, with long-term current use of insulin (HCC); Class 1 obesity due to excess calories with serious comorbidity and body mass index (BMI) of 32.0 to 32.9 in adult; Stage 3b chronic kidney disease (CMS/HCC) (HCC); Moderate episode of recurrent major depressive disorder (CMS/HCC) (HCC); Long-term current use of opiate analgesic 01/24/2025 Travel 01/23/2025 Orders Only GENERIC EXTERNAL DATA DEPARTMENT Provider, Generic External Data 01/23/2025 Telephone [facility] [address] [place] [address] Kathryn Jarquin MD chart prep 01/21/2025 Travel 01/21/2025 Refill [facility] [address] [place] [address] Kathryn Jarquin MD Hypothyroidism (acquired) 01/07/2025 Refill [facility] [address] [place] [address] Rhonda Valdez RN Upper back pain; Chronic pain of both knees; Chronic female pelvic pain; Chronic pain syndrome 01/07/2025 Telephone [facility] [place] [address] Kathryn Jarquin MD telephone call 01/04/2025 Orders Only GENERIC EXTERNAL DATA DEPARTMENT Provider, Generic External Data 12/19/2024 2:00 PM EDT Office Visit [facility] [address] [place] [id number] Dara Hayes MD Pre-operative exam (Primary Dx); Class 1 obesity with serious comorbidity and body mass index (BMI) of 33.0 to 33.9 in adult, unspecified obesity type; Type 2 diabetes mellitus with stage 3b chronic kidney disease, without long-term current use of insulin ([facility]); Stage 3b chronic kidney disease ([facility]/HCC) 12/19/2024 Orders Only GENERIC EXTERNAL DATA DEPARTMENT Provider, Generic External Data 12/19/2024 Refill [facility] [address] [place] [id number] Kathryn Jarquin MD Upper back pain; Chronic pain of both knees; Chronic female pelvic pain; Chronic pain syndrome 12/19/2024 Travel 12/18/2024 Telephone [facility] [address] [place] [id number] Kathryn Jarquin MD chart prep 12/17/2024 Orders Only [facility] [address] [place], [place] [phone] Kathryn Jarquin MD Hypokalemia (Primary Dx) 12/17/2024 Results Follow-Up [facility] [address] [place] [address] [phone] Kathryn Jarquin MD Comprehensive Metabolic Panel 12/10/2024 Travel 12/04/2024 2:30 PM EDT Clinical Support [facility] [address] [place] [address] Rhonda Valdez RN Chronic pain of both knees 12/04/2024 Telephone [facility] [address] [place] [address] [phone] Kathryn Jarquin MD Pre Op Appt request 12/04/2024 Travel 11/28/2024 Refill [facility] [address] [place] [phone] Kathryn Jarquin MD from Last 3 Months Immunizations Immunization Administration Dates Next Due Hep A, Adult 08/07/2024,03/29/2024 Hep B, adult 06/27/2014,02/18/2014,08/20/2013 Influenza High-dose Quadriva lent Preservative Free 01/07/2023 Influenza injectable quadriv alent IIV4 with preservative 02/06/2018,01/11/2017,12/29/2015,01/23 Influenza injectable quadriv alent preservative free 03/09/2021,02/21/2020 Influenza, High Dose Seasona l, Preservative Free 01/24/2025,04/16/2019 Influenza, IIV3, injectable 03/19/2024,1 04/20/2013,01/22/2011,02/04,03/25/2006 Influenza, Split [...] Sign Reading Time Taken Comments Blood Pressure 124/66 02/11/2025 2:22 PM EST Pulse 89 02/11/2025 2:22 PM EST Temperature 36.1 C (96.9 F) 01/24/2025 10:04 AM EDT Respiratory Rate 15 01/24/2025 10:04 AM EDT Oxygen Saturation 97% 01/24/2025 10:04 AM EDT Inhaled Oxygen Concentration - - Weight 67.6 kg (149 lb) 01/24/2025 10:04 AM EDT Height 144.8 cm (4' 9 ) 01/24/2025 10:04 AM EDT Body Mass Index 32.24 01/24/2025 10:04 AM EDT Plan of Treatment Upcoming Encounters Date Type Department Care Team (Late st Contact Info) Description 03/25/2025 2:00 PM EST Medication Management [facility] [address] [place] [address] Denis Rodgers, PharmD [address] [place] [address] 05/09/2025 2:00 PM EST Clinical Support [facility] [address] [place] [address] Rhonda Valdez, RN [address] [place] [address] Health Maintenance Due Date Last Done Comments CT Colonography 1955 FIT DNA/Cologuard 1955 FIT 1955 FOBT 1955 Sigmoidoscopy 1955 RSV Patients and Patients Aged 60 years or older (1 - Risk 50-74 years 1-dose series) 2006 Zoster Vaccines (2 of 2) 03/04/2023 01/07/2023 COVID-19 Vaccine ( season) 2024 08/07/2024, 05/02/2023, 11/25/2021, Additional history exists Hepatitis A Vaccines (2 of 2 - Risk 2-dose series) 02/07/2025 08/07/2024, 03/29/2024 Diabetes: Hemoglobin A1C 03/20/2025 025, 11/03/2024, 08/07/2024, Additional history exists Alcohol/Substance Use Screening 03/29/2025 03/29/2024 Diabetes: Foot Exam 03/29/2025 03/29/2024 Depression Monitoring 07/25/2025 01/24/2025, 025 SDOH Screening 08/07/2025 08/07/2024 Lipid Panel 12/19/2025 12/19/2024, 03/05, 01/13/2023, Additional history exists Eye Exam 02/22/2026 02/22/2025, 02/03, 02/22/2025, Additional history exists Tobacco Screening 02/22/2026 02/22/2025 Mammogram 11/07/2026 11/07/2024, 09/02, 01/22/2020, Additional history exists Colonoscopy 04/15/2028 04/15/2023, 09/10/2022 Colorectal Cancer Screening 04/15/2028 DTaP/Tdap/Td Vaccines (3 - Td or Tdap) 05/02/2033 05/02/2023, 06/02/2012, 11/12/2008 Hepatitis B Vaccines Completed 06/27/2014, 02/18/2014, 08/20/2013 Hepatitis C Screening Completed 04/18/2019 Pneumococcal Vaccine: 50+ Years Completed 05/02/2023, 11/12/2008 Influenza Vaccine Completed 01/24/2025, , 03/19/2024, Additional history exists HIB Vaccines Aged Out [...] Blood Pressure 124/66( 025 2:22 PM EST) Denis Watkins, PharmD Help patients manage their type 2 [...] chronic kidney disease No Francesca Martinez OD Procedures Procedure Name Priority Date/Time Associated Diagnosis Comments LACTIC ACID Routine 02/24/2025 6:54 PM EST XR CHEST 2 VIEWS Routine 02/24/2025 5:07 PM EST SLIDE REVIEW Routine 02/24/2025 4:06 PM EST CBC WITH AUTO DIFFERENTIAL Routine 02/24/2025 4:06 PM EST NT-PROBNP Routine 02/24/2025 3:29 PM EST HIGH SENSITIVITY TROPONIN I Routine 02/24/2025 3:29 PM EST MAGNESIUM Routine 02/24/2025 3:29 PM EST COMPREHENSIVE METABOLIC PANEL Routine 02/24/2025 3:29 PM EST PROTHROMBIN TIME-INR Routine 02/24/2025 3:29 PM EST SARS COV2/INFLUENZA A/B AND RSV RNA QL NAAT Routine 02/24/2025 3:29 PM EST POCT GLUCOSE Routine 01/24/2025 10:08 AM EDT Type 2 diabetes mellitus without complication, with long-term current use of insulin (HCC) BACTERIAL VAGINOSIS PANEL Routine 01/23/2025 10:45 AM EDT GLUCOSE, WHOLE BLOOD Routine 01/04/2025 7:01 AM [...] TOMOSYNTHESIS BILATERAL Routine 11/07/2024 11:36 AM EDT DIABETES EYE EXAM Routine 11/18/2023 COLONOSCOPY Routine 04/15/2023 ZZZ HISTORICAL HEPATITIS C ANTIBODY RFLX Routine 04/18/2019 8:30 AM EST from Last 3 Months or Most Recently Relevant to Health Maintenance Results * Lactic Acid (02/24/2025 6:54 PM EST) Lactic Acid 1.9 0.5 - 2.0 mmol/L [facility] 02/24/2025 6:54 PM EST 02/24/2025 6:58 PM EST us Generic External Data Provider LAB BLOOD ORDERAB LES Final Result [facility] [address] [place] [address] [phone] * XR Chest 2 Views (02/24/2025 5:07 PM EST) Anatomical Region Laterality Modality Chest Radiographic Arabella ging 02/24/2025 5:07 PM EST Narrative 02/24/2025 5:09 PM EST [address] [address] XRay Report Signed Patient: Wen Moran MR#: [id number] : 1955 Acct:[id number] Age/Sex: 69 / F ADM Date: 02/24/25 Loc: HO.ED Attending Dr: Ordering Physician: Kavita Guzmán Date of Service: 02/24/25 Procedure(s): XR chest 2V Accession Number(s): [id number] cc: Kavita Guzmán; Kathryn Jarquin MD Reason for Exam: chest pain / cough CLINICAL HISTORY: chest pain cough 2 view chest x-ray Comparison: CR/FL/SR - XR CHEST 2 VIEWS - 09/08/23 19:46 EDT Findings: No consolidation, pleural effusion or pneumothorax. Bilateral perihilar opacities. Normal size heart. No acute fracture. IMPRESSION: 1. Mild hypoventilation. 2. Bilateral perihilar opacities secondary to bronchovascular crowding or pneumonitis. 3. No segmental pneumonia. No significant pleural effusion. This document has been electronically signed by: Denise Guillen DO on 02/24/2025 17:07:35 Dictated By: Denise Guillen MD Signed By: <Electronically signed by Denise Guillen MD in OV> 02/24/251707 DD/ 06 TD/TT: 02/24/251706 Electric Blasting Cap Assembler: Procedure Note Donotuseinterpreter, Image - 02/24/[address] [address] XRay Report Signed Patient: Javi MoranR#: [id number] : 7Acct:[id number] Age/Sex: 69 / FADM Date: 02/24/25 Loc: HO.ED Attending Dr: Ordering Physician: Kavita Guzmán Date of Service: 02/24/25 Procedure(s): XR chest 2V Accession Number(s): [id number] cc: Kavita Guzmán; Kathryn Jarquin MD Reason for Exam: chest pain / cough CLINICAL HISTORY: chest pain cough 2 view chest x-ray Comparison: CR/FL/SR - XR CHEST 2 VIEWS - 09/08/23 19:46 EDT Findings: No consolidation, pleural effusion or pneumothorax. Bilateral perihilar opacities. Normal size heart. No acute fracture. IMPRESSION: 1. Mild hypoventilation. 2. Bilateral perihilar opacities secondary to bronchovascular crowding or pneumonitis. 3. No segmental pneumonia. No significant pleural effusion. This document has been electronically signed by: Denise Guillen DO on 02/24/2025 17:07:35 Dictated By: Denise Guillen MD Signed By: <Electronically signed by Denise Guillen MD in OV> 02/24/251707 DD/ 06 TD/TT: 02/24/251706 Electric Blasting Cap Assembler: [facility] External Provider IMG XR PROCEDURES Final Result * Slide Review (02/24/2025 4:06 PM EST) Slide Review VERIFIED [facility] 02/24/2025 4:06 PM EST 02/24/2025 4:08 PM EST Generic External Data Provider LAB BLOOD ORDERAB LES Final Result [facility] [address] [place] [phone] * (ABNORMAL) CBC auto differential (02/24/2025 4:06 PM EST) Only the most recent of2 resultswithin the time period is included. White Blood Count 24.2(H) 4.8 - 10.8 X10*3/uL [facility] Red Blood Count 4.73 4.20 - 5.50 X10*6/uL [facility] Hemoglobin 12.8 12.0 - 16.0 g/dl [facility] Hematocrit 40.0 37.0 - 47.0 % [facility] Mean Corpuscular Volume 84.6 80.0 - 98.0 fL [facility] Mean Corpuscular Hemoglobin 27.1 27.0 - 33.0 pg [facility] Mean Corpuscular HGB Conc 32.0 31.0 - 35.0 g/dl [facility] Red Cell Distribution Width 13.8 11.0 - 16.0 % [facility] Platelet Count 226 160 - 400 X10*3/uL [facility] Mean Platelet Volume 11.1 9.4 - 12.3 fL [facility] Neutrophils Percent Auto 81.7(H) 45 - 73 % [facility] Imm Gran Pct Auto 0.7(H) 0.0 - 0.4 % [facility] Lymphocytes Percent Auto 10.0(L) 20 - 40 % [facility] Monocytes Percent Auto 7.1 2 - 11 % [facility] Eosinophils Percent Auto 0.2 0 - 4 % [facility] Basophils Percent Auto 0.3 0 - 2 % [facility] NRBC Pct Auto 0.0 0.0 - 0.2 /100WBC [facility] Neutrophils Absolute Auto 19.7(H) 2.0 - 8.3 x10*3/uL [facility] Imm Gran Abs Auto 0.17(H) 0.00 - 0.03 X10*3/uL [facility] Lymphocytes Absolute Auto 2.4 1.2 - 4.9 X10*3/uL [facility] Monocytes Absolute Auto 1.7(H) 0.1 - 1.2 X10*3/uL [facility] Eosinophils Absolute Auto 0.1 0.0 - 0.4 X10*3/uL [facility] Basophils Absolute Auto 0.1 0.0 - 0.2 X10*3/uL [facility] NRBC Abs Auto 0.000 0.0 - 0.012 X10*3/uL [facility] 02/24/2025 4:06 PM EST 02/24/2025 4:08 PM EST Generic External Data Provider LAB BLOOD ORDERAB LES Edited Result - Final Performing Organization Address [facility] Phone Number [facility] [address] [place] [phone] * High Sensitivity Troponin I (02/24/2025 3:29 PM EST) Pathologist [facility] TROPONIN I HIGH SENSITIVITY 3.5 <3.5 - 17.0 ng/L [facility] Comment:The [place] high sens itivity Troponin-I results should beused in conjunction with other diagnostic information suchas ECG, clinical observations and information, and patientsymptoms to aid in the diagnosis of [place]. 02/24/2025 3:29 PM EST 02/24/2025 3:35 PM EST Generic External Data Provider LAB BLOOD ORDERAB LES Final Result Performing Organization Address [facility] Number [facility] [address] [place] [address] [phone] * SARS-CoV-2 RNA, Influenza A/B, and RSV RNA, Ql NAAT (02/24/2025 3:29 PM EST) [facility] Influenza A PCR NEGATIVE Negative [facility] Influenza B PCR NEGATIVE Negative [facility] Resp Syncy Virus RNA Qual PCR NEGATIVE Negative [facility] SARS COV2 PCR NEGATIVE Negative [facility] Comment:All test results mus t be correlated with clinical findings.Negative results do not preclude SARS-CoV2, influenza Avirus, influenza B virus and/or RSV infectionand should not be used as the sole basis for treatment orother patient management decisions. Negative results must becombined with clinical observations, patient history, andepidemiological information.This test has not been evaluated for monitoring treatment ofinfection.This test has been authorized by the FDA under an EmergencyUse Authorization (EUA) for use by authorized laboratories.Testing performed on the [employer] GeneXpert utilizingreal-time RT-PCR.All SARS CoV2 and positive influenza A/B results arereported to [facility]. 02/24/2025 3:29 PM EST 02/24/2025 3:35 PM EST Generic External Data Provider LAB MICROBIOLOGY - GENERAL ORDERABLES Final Result Performing Organization Address [facility] de Phone Number [facility] [address] [place] [phone] * (ABNORMAL) NT-proBNP (02/24/2025 3:29 PM EST) NT-proBNP 417.7(H) <300 pg/mL [facility] Comment:Reference Range:Age Group (years) NT-proBNP (pg/ml) InterpretationAll <300 Negative: HF unlikelyFor patients presenting to the ED with clinical suspicion ofnew onset or worsening HF, see below:18 to <50 >299.9 to <450.0 Grayzone: [id number] to 75 >299.9 to <900.0 other causes of>75 >299.9 to <1800.0 NT-proBNP [id number] to <50 >449.9 Positive: HF [id number] >899.9>75 >1799.9Note: Elevated NT-proBNP levels should be interpreted inthe context of other clinical information. 02/24/2025 3:29 PM EST 02/24/2025 3:35 PM EST Generic External Data Provider LAB BLOOD ORDERAB LES Final Result Performing Organization Address [facility] Co de Phone Number [facility] [address] [place] [address] [phone] * Prothrombin Time-INR (02/24/2025 3:29 PM EST) Prothrombin Time 11.4 11.2 - 13.5 SEC [facility] INTERNATIONAL NORM RATIO 0.9 0.9 - 1.1 [facility] Comment:INTERNATIONAL NORMAL IZED RATIO (INR) REFERENCE RANGES Reference RangeFor patients not on anticoagulant therapy: 0.9 - 1.1INR ranges for oral anticoagulanttherapy:For prevention and treatment of venous thrombosis and pulmonary embolism: 2.0 - 3.0For acute myocardial infarction with aspirin therapy: 2.0 - 3.0For acute myocardial infarction without aspirin therapy: 3.0 - 4.0For patients with mechanical prosthetic heart valves: 2.5 - 3.5 02/24/2025 3:29 PM EST 02/24/2025 3:35 PM EST Generic External Data Provider LAB BLOOD ORDERAB LES Final Result Performing Organization Address [facility] de Phone Number [facility] [address] [place] [address] [phone] * (ABNORMAL) Magnesium (02/24/2025 3:29 PM EST) Only the most recent of2 resultswithin the time period is included. Pathologist [facility] Magnesium 1.4(LL) 1.6 - 2.6 mg/dL [facility] Comment:Critical value for t est(s): MG Results called to and readback by: DARIN Person calling: [facility] Date: [id number] 02/24/2025 3:29 PM EST 02/24/2025 3:35 PM EST Generic External Data Provider LAB BLOOD ORDERAB LES Final Result Performing Organization Address [facility] de Phone Number [facility] [address] [place] [address] [phone] * (ABNORMAL) Comprehensive Metabolic Panel (02/24/2025 3:29 PM EST) Only the most recent of2 resultswithin the time period is included. Pathologist [facility] Sodium 139 135 - 145 mmol/L [facility] Potassium 4.2 3.3 - 5.1 mmol/L [facility] Chloride 101 96 - 108 mmol/L [facility] Carbon Dioxide 26 22 - 29 mmol/L [facility] Anion Gap 16 12 - 20 [facility] Urea Nitrogen (BUN) 29(H) 9 - 16 mg/dL [facility] Creatinine, Serum 1.41(H) 0.5 - 1.4 mg/dL [facility] Creatinine Clr Calc Pharmacy 29.8 [facility] Comment:Provided height and weight: 149.86 cm,58.967 kg.eGFR (calculated from the MDRD study equation) and eCrCl(calculated from the Cockcroft-Gault equation) are based ondifferent parameters and may not yield comparable results.If eCrCl result is absurd, please check patient'sheight/weight. Estimated Glomerular Filt Rate 37 [facility] Comment:Chronic Kidney Disea se: Estimated GFR < 60 mL/min/1.13p8Ysbowi Kidney Disease: Estimated GFR < 15 mL/min/1.73m2 Glucose 258(H) 60 - 115 mg/dL [facility] Calcium 10.3(H) 8.4 - 10.2 mg/dL [facility] Bilirubin, Total 0.5 0.0 - 1.0 mg/dL [facility] Aspartate Amino Transferase 54(H) 5 - 31 U/L [facility] Alanine Aminotransferase 27 0 - 31 U/L [facility] Total Protein 7.8 6.5 - 8.0 g/dL [facility] Albumin Level 4.4 3.5 - 5.0 g/dL [facility] Alkaline Phosphatase 175(H) 39 - 117 U/L [facility] 02/24/2025 3:29 PM EST 02/24/2025 3:35 PM EST us Generic External Data Provider LAB BLOOD ORDERAB LES Final Result [facility] [address] [place] [phone] * (ABNORMAL) POCT glucose manually resulted (01/24/2025 10:08 AM EDT) Only the most recent of2 resultswithin the time period is included. Glucose Blood, POC 209(A) 60 - 200 mg/dL QC Media Lot # [id number] Lot# Expiration Date ,911,417 Blood Capillary blood specimen / Unknown 01/24/2025 10:08 AM EDT Kathryn Jarquin MD POINT OF CARE TEST ENTER/EDIT OR DERABLES Final Result * Bacterial Vaginosis (01/23/2025 10:45 AM EDT) Pathologist [facility] TRICHOMONAS VAGINALIS DETECTION BY PCR NOT DETECTED Not Detect [facility] BACTERIAL VAGINOSIS DETECTION BY PCR NEGATIVE Negative [facility] Comment:The BV organism targ ets of the Xpert Xpress MVP test can becommensal in women; Xpert Xpress MVP positive results forbacterial vaginosis should be considered in conjunction withother clinical and patient information to determine thedisease status. Organisms that are not detected by the XpertXpress MVP test have also been reported to be associatedwith BV and aerobic vaginitis.The Xpert Xpress MVP test performance has not been evaluatedin patients under the age of 14. YESENIA GROUP DETECTION BY PCR NOT DETECTED Not Detect [facility] Yesenia glab krusei PCR NOT DETECTED Not Detect [facility] 01/23/2025 10:4 5 AM EDT 01/23/2025 3:41 PM EDT us Generic External Data Provider LAB MICROBIOLOGY - GENERAL ORDERABLES Final Result [facility] [address] [place] [phone] * (ABNORMAL) Glucose, Whole Blood (01/04/2025 7:01 AM EDT) Glucose, Whole Blood 247(H) 60 - 115 mg/dL [facility] Comment:METER #: [id number] 01/04/2025 7:01 AM EDT 01/04/2025 7:07 AM EDT us Generic External Data Provider LAB BLOOD ORDERAB LES Final Result Performing Organization Address [facility] de Phone Number [facility] [address] [place] [phone] * (ABNORMAL) Basic Metabolic Panel (12/21/2024 9:40 AM EDT) Only the most recent of2 resultswithin the time period is included. Sodium 141 135 - 145 mmol/L [facility] Potassium 3.7 3.3 - 5.1 mmol/L [facility] Chloride 104 96 - 108 mmol/L [facility] Carbon Dioxide 26 22 - 29 mmol/L [facility] Anion Gap 15 12 - 20 [facility] Urea Nitrogen (BUN) 26(H) 9 - 16 mg/dL [facility] Creatinine, Serum 1.54(H) 0.5 - 1.4 mg/dL [facility] Estimated Glomerular Filt Rate 34 [facility] Comment:Chronic Kidney Disea se: Estimated GFR < 60 mL/min/1.47n2Cefvbe Kidney Disease: Estimated GFR < 15 mL/min/1.73m2 Glucose 181(H) 60 - 115 mg/dL [facility] Calcium 9.6 8.4 - 10.2 mg/dL [facility] Blood Venous blood specimen / Unknown 12/21/2024 9:40 AM EDT 12/21/2024 11:19 AM EDT us Kathryn Jarquin MD LAB BLOOD ORDERABLES Final Resul t Performing Organization Address [facility] Co de Phone Number [facility] [address] [place] [phone] * ECG 12 lead (12/21/2024 8:11 AM EDT) Narrative Dara Hayes MD - 12/21/2024 8:11 AM EDT NSR, heart rate 71, no ST-T segment elevation Dara Hayes MD ECG ORDERABLES Final Result * (ABNORMAL) POCT Hgb A1c (12/19/2024 2:48 PM EDT) Hemoglobin A1C 7.4(A) 4.0 - 5.7 % QC Media Lot # [id number] Lot# Expiration Date Blood 12/19/2024 2:48 PM EDT Result [facility] Dara Hayes MD POINT OF CARE TEST ENTER/EDIT ORDERABLES Final Result * (ABNORMAL) Lipid Panel with Reflex to Direct LDL (12/19/2024 1:34 PM EDT) Triglycerides 181(H) <150 mg/dL [facility] Comment:Slight Lipemia.Brown able Triglyceride: less than 150 mg/dLBorderline High Triglyceride 150-199 mg/dLHigh Triglyceride: 200-499 mg/dLVery High Triglyceride: greater than or equal to 5OO mg/dL Cholesterol 237(H) <200 mg/dL [facility] Comment:Desirable Cholestero l: less than 200 mg/dLBorderline High Cholesterol: 200-239 mg/dLHigh Cholesterol: greater than 239 mg/dL LDL Cholesterol Calculated 147(H) <100 mg/dL [facility] Comment:Desirable LDL: less than 100 mg/dLNear Optimal/Above Optimal LDL: 110- 129 mg/dLBorderline High LDL: 130-159 mg/dLHigh LDL: 160-189 mg/dLVery High LDL: greater than or equal to 190 mg/dL HDL Cholesterol 54 >40 mg/dL [facility] Comment:Desirable HDL: great er than 40 mg/dL Note: This HDL assay may give artificially low results in patients with liver disease. Blood 12/19/2024 1:34 PM EDT 12/19/2024 4:03 PM EDT Kathryn Jarquin MD LAB BLOOD ORDERABLES Final Resul t [facility] [address] [place] [phone] * (ABNORMAL) POCT FLORENCIA-14 Urine Drug [...] 2:31 PM EDT Internal Pass Control Lot# [id number] Exp: 02-01-26 Kathryn Jarquin MD POINT OF CARE TEST ENTER/EDIT OR DERABLES Final Result * BI Mammogram Screening Tomosynthesis Bilateral (11/07/2024 11:36 AM EDT) Anatomical Region Laterality Modality Breast Bilateral Mammography 11/07/2024 11:3 6 AM EDT Narrative 11/17/2024 6:20 PM EDT [facility] [address] [place] [address] Mammography Report Signed Patient: Wen Moran MR#: [id number] : 1955 Acct:[id number] Age/Sex: 69 / F ADM Date: 11/07/24 Loc: ELIAN Attending Dr: Kathryn Jarquin MD Ordering Physician: Jaylen Cotton MD Results: 1Negativ e Date of Service: 11/07/24 Follow Up: 1 Year From Orig inal Mammogram Procedure(s): MM tomosynthesis screening BI Accession Number(s): [id number] cc: Kathryn Jarquin MD; Jaylen Cotton MD [...] 11/17/24 1817 DD/ 1136 TD/TT: 11/07/24 1150 Electric Blasting Cap Assembler: Procedure Note Donotuseinterpreter, Image - 11/17/2024 Lianna [facility] [address] [place], [place] [address] Mammography Report Signed Patient: Devin Moran#: [id number] : 7Acct:[id number] Age/Sex: 69 / FADM Date: 11/07/24 Loc: ELIAN Attending Dr: Kathryn Jarquin MD Ordering Physician: Jaylen Cotton MDResults: 1Negativ e Date of Service: 11/07/24Follow Up: 1 Year From [facility] ina Mammogram Procedure(s): MM tomosynthesis screening BI Accession Number(s): [id number] cc: Kathryn Jarquin MD; Jaylen Cotton MD [...] 11/17/24 1817 DD/ 1136 TD/TT: 11/07/24 1150 Electric Blasting Cap Assembler: [facility] External Provider IMG BI PROCEDURES Edited Result - Final * Diabetes Eye [...] AM EST) HEPATITIS C ANTIBODY NONREACTIVE NONREACTIVE [facility] Comment: Antibodies to HCV not detected; does not exclude early acute HCV infection. 04/18/2019 8:30 AM EST us Kathryn Jarquin MD HISTORICAL/NON ORDERABLE LABS Fi nal Result [facility] [address] from Last 3 Months or Most Recently Relevant to Health Maintenance Additional Health Concerns Active Problems Noted Date Diagnosed Date Help patients manage their type 2 diabetes 02/22 Weekly blood pressure task 02/22/2025 Help patients manage their type 2 diabetes 02/22 Patient has chronic kidney disease 02/22/2025 Weekly blood pressure task 02/22/2025 Patient has chronic kidney disease 02/22/[address] [facility] [facility] LONG TERM OPTIONS (O D-SNP) [place] [id number] [facility] Care Teams Manager Managed Care Relationship Specialty Start Date End Date Kathryn Jarquin MD [address] [place] [address] PCP - General Family Medicine 04/04/18 Denis Rodgers, NamitaD [address] [place] [address] Pharmacist Internal Medicine 10/22/22
--- OUTSIDE RECORDS SUMMARY | 2025-02-24 19:30 | XMS_ITS | Encounter Summary ---
Author Organization [employer] Address [address] [facility] [address]t [place] [address] Care Team Providers Care Sound Designer Name Role Phone Kathryn Jarquin MD Primary Care Provider [phone] Deins Rodgers PharmD Unavailable [phone] Encounter Details Date Type Department Care Team (Latest Contact Info) Description 02/22/2025 Travel Social History Tobacco Use Types Packs/Day [...] Description 03/25/2025 2:00 PM EST Medication Management [facility] MEDICINE 230 [place] [address] Denis Rodgers, PharmD 230 [place] [address] 05/09/2025 2:00 PM EST Clinical Support [facility] 505 [place] [address] Rhonda Valdez, DELFINA 505 [place] [address] documented as of this encounter Goals Goal [...] filedocumented in this encounter Additional Health Concerns Active [...] documented as of this encounter Care Teams Sound Designer Relationship Specialty Start Date End Date Kathryn Jarquin MD [address] [place] [address] PCP - General Family Medicine 04/04/18 Denis Rodgers, NamitaD [address] [place] [address] Pharmacist Internal Medicine 10/22/22 documented as of this encounter
--- OUTSIDE RECORDS SUMMARY | 2025-02-24 19:30 | XMS_ITS | Encounter Summary ---
Author Organization [employer] Address 75 [facility] 7t [place] [address] Care Team Providers Care Manager Income Tax Name Role Phone Kathryn Jarquin MD Primary Care Provider [phone] Denis Rodgers PharmD Unavailable [phone] Reason for Visit * Reason Comments Med Refill Encounter Details Date Type Department Care Team ([facility] st Contact Info) Description 09/19/2024 Refill [facility] MEDICINE 230 [place], [place] [phone] Kathryn Jarquin MD 230 [place], [place] [phone] Hypomagnesemia Social History Tobacco Use Types Packs/Day [...] Description 03/25/2025 2:00 PM EST Medication Management [facility] MEDICINE 230 [place] [address] Denis Rodgers PharmD 230 [place] [address] 05/09/2025 2:00 PM EST Clinical Support [facility] 505 [place] [address] Rhonda Valdez, RN 505 [place] [address] documented as of this encounter Goals Goal Patient Goal Type Associated Problems Recent Progress Patient-Stated? Author Blood Pressure < 140/90 Blood Pressure 124/66( 025 2:22 PM EST) No Denis Rodgers, PharmD documented as of this encounter Visit Diagnoses Diagnosis Hypomagnesemia Disorders of magnesium metabolism documented in this encounter Additional Health Concerns Assessment Noted Time PHQ-9 Depression Total Score: 12 024 10:26 AM EST documented as of this encounter Care Teams Manager Income Tax Relationship Specialty Start Date End Date Kathryn Jarquin MD 230 [place] [address] PCP - General Family Medicine 04/04/18 Denis Rodgers, PharmD [address] [place] [address] Pharmacist Internal Medicine 10/22/22 documented as of this encounter
--- OUTSIDE RECORDS SUMMARY | 2025-02-24 19:30 | XMS_ITS | Encounter Summary ---
Author Organization [employer] Address [address] [facility] [address] 7t [place] [address] Care Team Providers Care Pathology Lab Technician Name Role Phone Kathryn Jarquin MD Primary Care Provider [phone] Denis Rodgers PharmD Unavailable [phone] Encounter Details Date Type Department Care Team (Late st Contact Info) Description 03/26/2024 Abstract [facility] MEDICINE 230 [place] [address] Mya Garvey [place] Social History Tobacco Use [...] Description 03/25/2025 2:00 PM EST Medication Management [facility] MEDICINE 230 [place] [address] Denis Rodgers, PharmD 230 [place] [address] 05/09/2025 2:00 PM EST Clinical Support [facility] 505 [place] [address] Rhonda Valdez, RN 505 [place] [address] documented as of this encounter Goals Goal Patient Goal Type Associated Problems Recent Progress Patient-Stated? Author Blood Pressure < 140/90 Blood Pressure 124/66( 025 2:22 PM EST) No Denis Rodgers, PharmD documented as of this encounter Procedures Procedure Name Priority Date/Time Associated Diagnosis Comments DIABETES EYE EXAM Routine 11/18/2023 documented in this encounter Results * Diabetes Eye Exam (11/18/2023) Pathologist [facility] Eye Exam Normal Normal 11/18/2023 Historical Provider HEALTH MAINTENANCE Final Result documented in this encounter Visit Diagnoses Not on filedocumented in this encounter Care Teams Pathology Lab Technician Relationship Specialty Start Date End Date Kathryn Jarquin MD 230 [place] [address] PCP - General Family Medicine 04/04/18 Denis Rodgers, NamitaD [address] [place] [address] Pharmacist Internal Medicine 10/22/22 documented as of this encounter
--- OUTSIDE RECORDS SUMMARY | 2025-02-24 19:30 | XMS_ITS | Encounter Summary ---
Author Organization [employer] Address [address] [facility] [address] 7t [place] [address] Care Team Providers Care Pipe Fitter Apprentice Name Role Phone Kathryn Jarquin MD Primary Care Provider [phone] Denis Rodgers PharmD Unavailable [phone] Encounter Details Date Type Department Care Team (Late st Contact Info) Description 12/17/2024 Orders Only [facility] 230 [place] [address] Kathryn Jarquin MD 230 [place] [address] Hypokalemia (Primary Dx) Social History Tobacco Use [...] [facility] st Contact Info) Description 03/25/2025 2:00 PM EST Medication Management [facility] 230 [place] [address] Denis Rodgers, PharmD 230 [place] [address] 05/09/2025 2:00 PM EST Clinical Support [facility] 505 [place] [address] Rhonda Valdez, RN 505 [place] [address] documented as of this encounter Goals Goal [...] EDT) Sodium 141 135 - 145 mmol/L [facility] Potassium 3.7 3.3 - 5.1 mmol/L [facility] Chloride 104 96 - 108 mmol/L [facility] Carbon Dioxide 26 22 - 29 mmol/L [facility] Anion Gap 15 12 - 20 [facility] Urea Nitrogen (BUN) 26(H) 9 - 16 mg/dL [facility] Creatinine, Serum 1.54(H) 0.5 - 1.4 mg/dL [facility] Estimated Glomerular Filt Rate 34 [facility] Comment:Chronic Kidney Disea se: Estimated GFR < 60 mL/min/1.01n8Noaocy Kidney Disease: Estimated GFR < 15 mL/min/1.73m2 Glucose 181(H) 60 - 115 mg/dL [facility] Calcium 9.6 8.4 - 10.2 mg/dL [facility] Blood Venous blood specimen / Unknown 12/21/2024 9:40 AM EDT 12/21/2024 11:19 AM EDT Kathryn Jarquin MD LAB BLOOD ORDERABLES Final Resul t Performing Organization Address City/[facility]/ZIP Co de Phone Number [facility] [address] [place] [phone] * Magnesium (12/19/2024 1:34 PM EDT) Magnesium 1.7 1.6 - 2.6 mg/dL [facility] Blood Venous blood specimen / Unknown 12/19/2024 1:34 PM EDT 12/19/2024 4:03 PM EDT Kathryn Jarquin MD LAB BLOOD ORDERABLES Final Resul t Performing Organization Address City/[facility]/ZIP Co de Phone Number [facility] [address] [place] [phone] documented in this encounter Visit Diagnoses Diagnosis Hypokalemia- Primary Hypopotassemia documented in this encounter Additional Health Concerns Assessment Noted Time PHQ-9 Depression Total Score: 12 03/29/2 024 10:26 AM EST documented as of this encounter Care Teams Pipe Fitter Apprentice Relationship Specialty Start Date End Date Kathryn Jarquin MD [address] [place] [address] PCP - General Family Medicine 04/04/18 Denis Rodgers, NamitaD [address] [place] [address] Pharmacist Internal Medicine 10/22/22 documented as of this encounter
--- OUTSIDE RECORDS SUMMARY | 2025-02-24 19:30 | XMS_ITS | Data Portability ---
Author Organization [facility], Main Office Address [address] [facility] [facility] [place] [address] Care Team Providers Care Cigar Making Machine Operator Name Role Phone [facility] OTHER Assessment No assessment recorded. Plan [...] By Organization Details Last Modified Time 10/09/2024 [id number] vitamin D supplemetation [email or web address] Not available 10/09/2024 13:20:17 Reason for Referral None Reported. Problems Name Problem SNOMED Code Status Onset Date Resolution Date Notes Provider Name and Address Organization Details Recorded Time Type 2 diabetes mellitus without complication 289262860 Active 2024 Not Available [facility] 16:22:55 Essential hypertension 98495061 Active 2024 Not Available [facility] 16:14:24 Gastroesophag eal reflux disease without esophagitis 772202596 Active 2024 Not Available [facility] 16:15:22 Irritable bowel syndrome characterized by constipation 495268956 Active 2024 Not Available [facility] 16:15:24 Backache 912601900 Active 2024 Not Available [facility] 16:22:56 Pain in right lower limb 696134391 Active 2024 Not Available [facility] 16:22:58 Chronic kidney disease stage 4 813098192 Active 2024 Not Available [facility] 16:20:00 Muscle weakness 00561337 Active 2024 Not Available [facility] 16:39:11 Difficulty walking 341004259 Active 2024 Not Available [facility] [...] units if Bs greater than 400 call director of laboratory operations provider, subcutane ously three times a day [...] ICD10 Code Diagnosis IMO Codes Diagnosis Note [id number] CARLENE GU NP-C [facility] [address] [place] [address] 10/04/2024 08:47:45 10/10/2024 14:07:41 Acute back pain with sciatica 990867213 M54.41 05931174 with trouble ambulating dt painadmit to PT OTtylenol for paincont oxy 5 mg q8h prnmonitor painphysio logy provider to follow Irritable bowel syndrome characterized by constipation 642675997 K58.1 112710 cont home medlnactol blas 290 mcg dailymonit or bowels Type 2 joel betes mellitus 59677923 E11.8 4774082 glipizide 5mg dailymonit or accuchecks Mixed hyperlipidemia 267 747242 E78.2 27561 cont atorvastat inlipids outpt Essential hypertension 31945401 I10 17738 cont amlodipine 5mg dailycont hydralazin e 25mg bidcont clonidine 0.1mg bidcont HCTZ 25mg dailymonit or BP and labs Gastroesop hageal reflux disease 912022588 K21.9 29738217 chroniccon t omeprazole dailymonit or ss Diverticular disease [address] finding in recent admissionc onsider outpt follow up Acquired hypothyroidism 142672970 E03.9 21313 levothyrox ine 50 mcg dailythyro id panel outpt Mood disorder 84350288 F 39 71487 cont home medsfluoxe dragan 60 mg dailyqueti apine 100 mg bidprazosi n 1 mg qhsclonaze keisha 2 mg qhsmonitor mood and affectpsyc h eval prn [id number] Daxachelo Chilel MD [facility] [address] [place] [address] 10/09/2024 12:44:33 11/03/2024 20:38:56 Type 2 diabetes mellitus 75436346 E11.8 5177282 glipizide 5mg daily 10/03/2024 13:14 98.0 mg/dL [id number] (Manual) Irritable bowel syndrome characterized by constipation 130972975 K58.1 566352 outpt lnactolide 290mcg daily Acute back pain with sciatica 265912373 M54.41 44434652 PRN oxycodone 5mg tid Mixed hyperlipidemia 267 855641 E78.2 33632 high intensity atorvastat in Essential hypertension 00586579 I10 71299 bASA / amlodipine 5mg daily / hydralazin [...] 12:08 122 / 76 mmHg Lying l/arm [id number] (Manual)10/05/2024 05:14 99 / 51 mmHg Lying r/arm amcmillain (Manual)10/04/2024 21:46 128 / 76 mmHg Sitting l/arm Gastroesop hageal reflux disease 341673370 K21.9 11774211 maintenanc e omeprazole 4mg daily Mixed urin bessy incontinence 761236949 N39.46 350885 urge / stress History of surgery 35741 5003 Z98.828 2928727 s/p C/S, hysterctom y and T/L Diverticular disease [address] finding in recent admission Acquired hypothyroidism 031129515 E03.9 01468 levothyrox ine 50mcg daily Mood disorder 00606202 F 39 04967 fluoxetine 60mg daily / quetiapine 100mg bid / prazosin 1mg qhs / clonazepam 2mg qhsrecords indicate use of mirtazapin e 45mg po qhs [id number] CARLENE GU, FINANCIAL REPRESENTATIVE-C [facility] [address] [place] [address] 10/11/2024 20:36:42 10/12/2024 09:51:57 Acute back pain with sciatica 578459596 M54.41 47820439 Pain well managedabl e to ambulate with walker to bathroomco nt PT OTtylenol for paincont oxy 5 mg q8h prnmonitor painphysio logy provider to follow Irritable bowel syndrome characterized by constipation 877012011 K58.1 590614 normal bowels herecont lnactolide 290 mcg dailyhas daily BMmonitor bowels Type 2 joel betes mellitus 26916040 E11.8 6656485 one accucheck recorded 98glipizid e 5mg dailyorder ed accuchecks bid twice weekly Essential hypertension 42518268 I10 05511 very well controlled cont amlodipine 5mg dailycont hydralazin e 25mg bidcont clonidine 0.1mg bidcont HCTZ 25mg dailymonit or BP and labs Mood disorder 12818761 F 39 43725 normal mood and affect on home med regimencon t fluoxetine 60 mg dailycont quetiapine 100 mg bidcont prazosin 1 mg qhscont clonazepam 2 mg qhsmonitor mood and affectpsyc h eval prn [id number] [place] [address] 10/12/2024 13:39:39 10/16/2024 10:05:58 Acute back pain with sciatica 168935753 M54.41 22971222 Pain well managedabl e to ambulate with walker to bathroomco nt PT OTwill sched tylenol 1000 mg tidcont oxy 5 mg q8h prnmonitor painphysio logy provider to follow Irritable bowel syndrome characterized by constipation 103783985 K58.1 736222 normal bowels herecont lnactolide 290 mcg dailyhas daily BMmonitor bowels Type 2 joel betes mellitus 20877097 E11.8 5294837 above goal 200-300 rangept is currently on high dose prednisone burstwill hold off on adjustment until prednisone is completeco nt glipizide 5 mg dailyorder ed accuchecks bid twice weekly Essential hypertension 57823107 I10 93512 very well controlled cont amlodipine 5mg dailycont hydralazin e 25mg bidcont clonidine 0.1mg bidcont HCTZ 25mg dailymonit or BP and labs Mood disorder 51669714 F 39 05134 normal mood and affect on home med regimencon t fluoxetine 60 mg dailycont quetiapine 100 mg bidcont prazosin 1 mg qhscont clonazepam 2 mg qhsmonitor mood and affectpsyc h eval prn Generalize d osteoarthritis 282322731 M15.9 1453 to right kneestarte d on prednisone burst on 10/10now pain and swelling completely resolvedwi ll sched tylenol 1000 mg tidstart lidocaine patch to right kneecont oxy 5 mg q8h prnphysiol ogy following [id number] [place] [address] 10/15/2024 10:08:43 10/18/2024 08:50:33 Generalized osteoarthritis 113516419 M15.9 1453 OA to right knee w/ pain/ swellingco mpleted prednisone burst on 10/14 with improvemen tcont sched tylenol 1000 mg tidcont lidocaine patch to right kneecont oxy 5 mg q8h prnmonitor narc usage and wean as toleratedp hysiology provider following Acute back pain with sciatica 347408445 M54.41 97026342 sciatica pain well managedabl e to ambulate with walker to bathroomco nt sched tylenol 1000 mg tidcont oxy 5 mg q8h prnmonitor painphysio logy provider to followcont PT OTmonitor progress Type 2 joel betes mellitus 77804907 E11.8 6604316 completed prednisone burst yesterday and BS remain elevatedno w well into the 300 rangeincre ase to glipizide 10 mg dailystart accuchecks tid with house ss lispro until glipizide takes affectmoni tor BS trend Essential hypertension 90459302 I10 28729 very well controlled cont amlodipine 5mg dailycont hydralazin e 25mg bidcont clonidine 0.1mg bidcont HCTZ 25mg dailymonit or BP and labs [id number] CARLENE GU, FINANCIAL REPRESENTATIVE-C [facility] [address] [place] [address] 10/16/2024 10:46:42 10/18/2024 09:13:03 Generalized osteoarthritis 793034297 M15.9 1453 OA to right knee w/ pain/ swellingco mpleted prednisone burst on 10/14 with improvemen tcont sched tylenol 1000 mg tidcont lidocaine patch to right kneecont oxy 5 mg q8h prn, nursing to supplyf/u with PCPrecs to make apt with ortho Acute back pain with sciatica 213326891 M54.41 98367306 sciatica pain well managedabl e to ambulate with walker to bathroomco nt sched tylenol 1000 mg tidcont oxy 5 mg q8h prn nursing to supplyf/u with PCP Type 2 joel betes mellitus 58564323 E11.8 1960058 completed prednisone burst yesterday and BS remain elevatedno w well into the 300 rangeincre ase to glipizide 10 mg dailyf/u with PCPrepeat A1C in 3 mos Essential hypertension 59719098 I10 58809 very well controlled cont amlodipine 5mg dailycont hydralazin e 25mg bidcont clonidine 0.1mg bidcont HCTZ 25mg dailyf/u with PCP Irritable bowel syndrome characterized by constipation 938478450 K58.1 821497 cont home medlnactol blas 290 mcg dailyf/u with PCP Mixed hyperlipidemia 267 891434 E78.2 82044 cont atorvastat inf/u with PCP Gastroesop hageal reflux disease 775420811 K21.9 98275581 chroniccon t omeprazole dailyf/u with PCP Diverticular disease [address] finding in recent admissionf /u with PCP Acquired hypothyroidism 651700905 E03.9 70553 levothyrox ine 50 mcg dailythyro id panel outptf/u with PCP Mood disorder 19061985 F 39 46120 cont home medsfluoxe dragan 60 mg dailyqueti [...] Murphy Member ID Guarantor Name 11/03/2024 1 [facility] - DOS ON OR AFTER 2022 - MEDICARE ADVANTAGE [place] (MEDICARE REPLACEMENT/ADV ANTAGE - PPO) Wen Moran [id number] Wen Moran Notes Date Note Type Note Provider Name and Address Organization Details Recorded Time 10/09/2024 text/html ROS as noted in the HPI 69yo F with metabolic syndrome, lumbar spondylosis admitted to [facility] after [facility] [place] [facility] [place] [facility] for acute severe RIGHT sciatica-type pain. Patient lives alone and unable to ambulate safely despite use of narcotics. Plain lumbar film remarkable for spondylosis without acute process. CT pelvis unremarkable other than findings of diverticulosis. Comorbidities: HTN, CKD 4, WILLETT / GERD / idiopathic constipation Allergies: No Known Allergies Daxa Chilel MD [address] [facility], [address], [place], [address], [facility] 10/31/2024 09:52:56 10/10/2024 text/html Pt is a [...] GERD / idiopathic constipation QUINTIN KLINE [address] [facility] [address], [place], [address], [facility] 10/11/2024 20:38:41 10/12/2024 text/html Pt is a [...] GERD / idiopathic constipation QUINTIN KLINE [address] [facility], [address], [place], [address], [facility] [employer] 10/12/2024 13:54:27 10/15/2024 text/html Pt is a [...] and no complaints. Eating and drinking normally. [facility] HTN, CKD 4, WILLETT / GERD / idiopathic constipation QUINTIN KLINE [address] [facility], [address], [place], [address], [facility] 10/15/2024 12:59:38 10/16/2024 text/html Pt is a [...] for discharge home with meds and services [facility] HTN, CKD 4, WILLETT / GERD / idiopathic constipation QUINTIN KLINE [address] [facility], [address], [place], [address], [facility] [employer] 10/17/2024 07:35:46 OBGyn Episode No OBEpisode recorded.
--- OUTSIDE RECORDS SUMMARY | 2025-02-24 19:31 | XMS_ITS | Encounter Summary ---
Author Organization [employer] Address [address] [facility] 7t [place] [address] Care Team Providers Care Detail Maker And Fitter Name Role Phone Kathryn Jarquin MD Primary Care Provider [phone] Denis Rodgers PharmD Unavailable [phone] Reason for Visit * Reason Comments Med Refill Encounter Details Date Type Department Care Team ([facility] st Contact Info) Description 05/29/2024 Refill [facility] MED[facility]INE [address] [place], [place] [phone] Kathryn Jarquin MD [address] [place] [address] Upper back pain; Chronic pain of both [...] Description 03/25/2025 2:00 PM EST Medication Management [facility] [address] [place] [address] Denis Rodgers, PharmD 230 [place] [address] 05/09/2025 2:00 PM EST Clinical Support [facility] [address] [place], [place] [phone] Rhonda Valdez, RN 505 [place] [address] documented as of this encounter Goals Goal Patient Goal Type Associated Problems Recent Progress Patient-Stated? Author Blood Pressure < 140/90 Blood Pressure 124/66( 025 2:22 PM EST) No Denis Rodgers, PharmMirela documented as of this encounter Visit Diagnoses Diagnosis Upper back pain Unspecified backache Chronic pain of both knees Chronic female pelvic pain Unspecified symptom associated with female genital organs Chronic pain syndrome documented in this encounter Additional Health Concerns Assessment Noted Time PHQ-9 Depression Total Score: 12 024 10:26 AM EST documented as of this encounter Care Teams Detail Maker And Fitter Relationship Specialty Start Date End Date Kathryn Jarquin MD [address] [place] [address] PCP - General Family Medicine 04/04/18 Denis Rodgers, PharmD [address] [place] [address] Pharmacist Internal Medicine 10/22/22 documented as of this encounter
--- OUTSIDE RECORDS SUMMARY | 2025-02-24 19:31 | XMS_ITS | Encounter Summary ---
Author Organization [employer] Address [address] [facility] 7t [place] [address] Care Team Providers Care Weatherization Operations Manager Name Role Phone Kathryn Jarquin MD Primary Care Provider [phone] Denis Rodgers PharmD Unavailable [phone] Encounter Details Date Type Department Care Team ([facility] st Contact Info) Description 09/30/[address] [facility] MED[facility] [address] [place], [place] [phone] Kathryn Jarquin MD 230 [place], [place] [phone] Social History Tobacco Use Types Packs/Day Years [...] Description 03/25/2025 2:00 PM EST Medication Management [facility] [address] [place] [address] Denis Rodgers, PharmD [address] [place] [address] 05/09/2025 2:00 PM EST Clinical Support [facility] 505 [place], [place] [phone] Rhonda Valdez, RN 505 [place] [address] documented as of this encounter Goals Goal Patient Goal Type Associated Problems Recent Progress Patient-Stated? Author Blood Pressure < 140/90 Blood Pressure 124/66( 025 2:22 PM EST) No Denis Rodgers PharmD documented as of this encounter Visit Diagnoses Not on filedocumented in this encounter Care Teams Weatherization Operations Manager Relationship Specialty Start Date End Date Kathryn Jarquin MD [address] [place] [address] PCP - General Family Medicine 04/04/18 Denis Rodgers, PharmD [address] [place] [address] Pharmacist Internal Medicine 10/22/22 documented as of this encounter
--- OUTSIDE RECORDS SUMMARY | 2025-02-24 19:31 | XMS_ITS | Encounter Summary ---
Author Organization [employer] Address 75 [facility] 7t [place] [address] Care Team Providers Care Nursing Assoc Name Role Phone Kathryn Jarquin MD Primary Care Provider [phone] Denis Rodgers PharmD Unavailable [phone] Reason for Visit * Reason Onset Date Comments Nurse Triage 09/24/2024 Encounter Details Date Type Department Care Team ([facility] st Contact Info) Description 09/24/2024 Telephone [facility] MED[facility]INE [address] [place] [address] Kathryn Jarquin MD [address] [place], [place] [phone] Nurse Triage Social History Tobacco Use Types [...] RN - 09/24/2024 2:53 PM EDT No custom bow maker needed as this continuity writer speaks Luxembourger. Call returned to Wen Moran to triage below at [phone]. Reports having chronic pain that is using Oxycodone for. Pt was looking for status of Rx. Advised was queued to FORGE OPERATOR HELPER nurse for MASSPAT review and then to [...] Reason: Abdominal pain Please contact pt at [phone]. (Luxembourger Speaker) documented in this encounter Plan of Treatment Upcoming Encounters Date Type Department Care Team ([facility] st Contact Info) Description 03/25/2025 2:00 PM EST Medication Management [facility] MEDICINE [address] [place] [address] Denis Rodgers, Swapnil [address] [place] [address] 05/09/2025 2:00 PM EST Clinical Support [facility] [address] [place], [place] [phone] Rhonda Valdez, DELFINA 505 [place] [address] documented as of this encounter Goals Goal [...] documented as of this encounter Care Teams Nursing Assoc Relationship Specialty Start Date End Date Kathryn Jarquin MD [address] [place] [phone] PCP - General Family Medicine 04/04/18 Denis Rodgers, PharmD [address] [place] [address] Pharmacist Internal Medicine 10/22/22 documented as of this encounter
--- OUTSIDE RECORDS SUMMARY | 2025-02-24 19:31 | XMS_ITS | Encounter Summary ---
Author Organization [employer] Address 75 [facility] 7t [place] [address] Care Team Providers Care Human Performance Technologist Name Role Phone Kathryn Jarquin MD Primary Care Provider [phone] Denis Rodgers PharmD Unavailable [phone] Reason for Visit * Reason Comments Med Refill Encounter Details Date Type Department Care Team ([facility] st Contact Info) Description 05/28/2024 Refill [facility] MEDICINE [address] [place], [place] [phone] Kathryn Jarquin MD 230 [place] [address] Upper back pain; Chronic pain of both [...] Description 03/25/2025 2:00 PM EST Medication Management [facility] MEDICINE [address] [place] [address] Denis Rodgers, PharmD [address] [place] [address] 05/09/2025 2:00 PM EST Clinical Support [facility] MED [facility] PEDS [address] [place], [place] [phone] Rhonda Valdez, RN 505 [place] [address] documented as of this encounter Goals Goal [...] documented as of this encounter Care Teams Human Performance Technologist Relationship Specialty Start Date End Date Kathryn Jarquin MD [address] [place] [phone] PCP - General Family Medicine 04/04/18 Denis Rodgers, PharmD [address] [place] [phone] Pharmacist Internal Medicine 10/22/22 documented as of this encounter
--- OUTSIDE RECORDS SUMMARY | 2025-02-24 19:31 | XMS_ITS | Encounter Summary ---
Author Organization [employer] Address [address] [facility] [address] 7t [place] [address] Care Team Providers Care Chief Of Harbor Patrol Name Role Phone Kathryn Jarquin MD Primary Care Provider [phone] Denis Rodgers PharmD Unavailable [phone] Encounter Details Date Type Department Care Team (Late st Contact Info) Description 02/24/2025 Orders Only GENERIC EXTERNAL DATA [...] 03/25/2025 2:00 PM EST Medication Management [facility] MEDICINE 230 [place] [address] Denis Rodgers, PharmD 230 [place] [address] 05/09/2025 2:00 PM EST Clinical Support [facility] PEDS 505 [place] [address] Rhonda Valdez, RN 505 [place] [address] documented as of this encounter Goals Goal [...] Martinez OD documented as of this encounter Procedures Procedure Name Priority Date/Time Associated Diagnosis Comments LACTIC ACID Routine 02/24/2025 6:54 PM EST XR CHEST 2 VIEWS Routine 02/24/2025 5:07 PM EST SLIDE REVIEW Routine 02/24/2025 4:06 PM EST CBC WITH AUTO DIFFERENTIAL Routine 02/24/2025 4:06 PM EST HIGH SENSITIVITY TROPONIN I Routine 02/24/2025 3:29 PM EST SARS COV2/INFLUENZA A/B AND RSV RNA QL NAAT Routine 02/24/2025 3:29 PM EST NT-PROBNP Routine 02/24/2025 3:29 PM EST PROTHROMBIN TIME-INR Routine 02/24/2025 3:29 PM EST MAGNESIUM Routine 02/24/2025 3:29 PM EST COMPREHENSIVE METABOLIC PANEL Routine 02/24/2025 3:29 PM EST documented in this encounter Results * Lactic Acid (02/24/2025 6:54 PM EST) Lactic Acid 1.9 0.5 - 2.0 mmol/L [facility] 02/24/2025 6:54 PM EST 02/24/2025 6:58 PM EST us Generic External Data Provider LAB BLOOD ORDERAB LES Final Result Performing Organization Address City/State/[facility] Co de Phone Number [facility] [address] [place] [phone] * XR Chest 2 Views (02/24/2025 5:07 PM EST) Anatomical Region Laterality Modality Chest Radiographic Arabella ging 02/24/2025 5:07 PM EST Narrative 02/24/2025 5:09 PM EST [address] [address] XRay Report Signed Patient: Wen Moran MR#: [id number] : 1955 Acct:[id number] Age/Sex: 69 / F ADM Date: 02/24/25 Loc: HO.ED Attending Dr: Ordering Physician: Kavita Guzmán Date of Service: 02/24/25 Procedure(s): XR chest 2V Accession Number(s): [id number] cc: Kavita Guzmán; Kathryn Jarquin MD Reason for Exam: chest pain / cough CLINICAL HISTORY: chest pain cough 2 view chest x-ray Comparison: CR/PA/SR - XR CHEST 2 VIEWS - 09/08/23 [...] in OV> 02/24/251707 DD/ 06 TD/TT: 02/24/251706 Paver Installer: Procedure Note Donotuseinterpreter, Image - 02/24/2025 [place] [address] XRay Report Signed Patient: Devin Moran#: [id number] : 1955cct:[id number] Age/Sex: 69 / FADM Date: 02/24/25 Loc: HO.ED Attending Dr: Ordering Physician: Kavita Guzmán Date of Service: 02/24/25 Procedure(s): XR chest 2V Accession Number(s): [id number] cc: Kavita Guzmán; Kathryn Jarquin MD Reason for Exam: chest pain / cough CLINICAL HISTORY: chest pain cough 2 view chest x-ray Comparison: CR/PA/SR - XR CHEST 2 VIEWS - 09/08/23 [...] in OV> 02/24/251707 DD/ 06 TD/TT: 02/24/251706 Paver Installer: [facility] External Provider IMG XR PROCEDURES Final Result * Slide Review (02/24/2025 4:06 PM EST) Slide Review VERIFIED [facility] 02/24/2025 4:06 PM EST 02/24/2025 4:08 PM EST Generic External Data Provider LAB BLOOD ORDERAB LES Final Result [facility] [address] [place] [phone] * (ABNORMAL) CBC auto differential (02/24/2025 4:06 PM EST) White Blood Count 24.2(H) 4.8 - 10.8 X10*3/uL [facility] Red Blood Count 4.73 4.20 - 5.50 X10*6/uL [facility] Hemoglobin 12.8 12.0 - 16.0 g/dl [facility] Hematocrit 40.0 37.0 - 47.0 % [facility] Mean Corpuscular Volume 84.6 80.0 - 98.0 fL [facility] Mean Corpuscular Hemoglobin 27.1 27.0 - 33.0 pg [facility] Mean Corpuscular HGB Conc 32.0 31.0 - 35.0 g/dl [facility] Red Cell Distribution Width 13.8 11.0 - 16.0 % [facility] Platelet Count 226 160 - 400 X10*3/uL [facility] Mean Platelet Volume 11.1 9.4 - 12.3 fL [facility] Neutrophils Percent Auto 81.7(H) 45 - 73 % [facility] Imm Gran Pct Auto 0.7(H) 0.0 - 0.4 % [facility] Lymphocytes Percent Auto 10.0(L) 20 - 40 % [facility] Monocytes Percent Auto 7.1 2 - 11 % [facility] Eosinophils Percent Auto 0.2 0 - 4 % [facility] Basophils Percent Auto 0.3 0 - 2 % [facility] NRBC Pct Auto 0.0 0.0 - 0.2 /100WBC [facility] Neutrophils Absolute Auto 19.7(H) 2.0 - 8.3 x10*3/uL [facility] Imm Gran Abs Auto 0.17(H) 0.00 - 0.03 X10*3/uL [facility] Lymphocytes Absolute Auto 2.4 1.2 - 4.9 X10*3/uL [facility] Monocytes Absolute Auto 1.7(H) 0.1 - 1.2 X10*3/uL [facility] Eosinophils Absolute Auto 0.1 0.0 - 0.4 X10*3/uL [facility] Basophils Absolute Auto 0.1 0.0 - 0.2 X10*3/uL [facility] NRBC Abs Auto 0.000 0.0 - 0.012 X10*3/uL [facility] 02/24/2025 4:06 PM EST 02/24/2025 4:08 PM EST us Generic External Data Provider LAB BLOOD ORDERAB LES Edited Result - Final [facility] [address] [place] [phone] * (ABNORMAL) NT-proBNP (02/24/2025 3:29 PM EST) NT-proBNP 417.7(H) <300 pg/mL [facility] Comment:Reference Range:Age Group (years) NT-proBNP (pg/ml) InterpretationAll <300 Negative: HF unlikelyFor patients presenting to the ED with clinical suspicion ofnew onset or worsening HF, see below:18 to <50 >299.9 to <450.0 Grayzone: Hdlmbzob38 to 75 >299.9 to <900.0 other causes of>75 >299.9 to <1800.0 NT-proBNP ukeytweek14 to <50 >449.9 Positive: HF oswerr08-12 >899.9>75 >1799.9Note: Elevated NT-proBNP levels should be interpreted inthe context of other clinical information. 02/24/2025 3:29 PM EST 02/24/2025 3:35 PM EST us Generic External Data Provider LAB BLOOD ORDERAB LES Final Result [facility] [address] [place] [phone] * SARS-CoV-2 RNA, Influenza A/B, and RSV RNA, Ql NAAT (02/24/2025 3:29 PM EST) Pathologist [facility] Influenza A PCR NEGATIVE Negative [facility] Influenza B PCR NEGATIVE Negative [facility] Resp Syncy Virus RNA Qual PCR NEGATIVE Negative [facility] SARS COV2 PCR NEGATIVE Negative [facility] Comment:All test results mus t be [...] use by authorized laboratories.Testing performed on the [employer] GeneXpert utilizingreal-time RT-PCR.All SARS CoV2 and positive influenza A/B results arereported to [facility]. 02/24/2025 3:29 PM EST 02/24/2025 3:35 PM EST Generic External Data Provider LAB MICROBIOLOGY - GENERAL ORDERABLES Final Result Performing Organization Address [facility] Co de Phone Number [facility] [address] [place] [phone] * High Sensitivity Troponin I (02/24/2025 3:29 PM EST) TROPONIN I HIGH SENSITIVITY 3.5 <3.5 - 17.0 ng/L [facility] Comment:The [place] high sens itivity Troponin-I results should beused in conjunction with other diagnostic information suchas ECG, clinical observations and information, and patientsymptoms to aid in the diagnosis of NM. 02/24/2025 3:29 PM EST 02/24/2025 3:35 PM EST Generic External Data Provider LAB BLOOD ORDERAB LES Final Result Performing Organization Address [facility] Phone Number [facility] [address] [place] [phone] * (ABNORMAL) Magnesium (02/24/2025 3:29 PM EST) Pathologist [facility] Magnesium 1.4(LL) 1.6 - 2.6 mg/dL [facility] Comment:Critical value for t est(s): MG Results called to and readback by: DARIN Person calling: HAYDE Date: [id number] 02/24/2025 3:29 PM EST 02/24/2025 3:35 PM EST Generic External Data Provider LAB BLOOD ORDERAB LES Final Result Performing Organization Address [facility] Co de Phone Number [facility] [address] [place] [phone] * (ABNORMAL) Comprehensive Metabolic Panel (02/24/2025 3:29 PM EST) Sodium 139 135 - 145 mmol/L [facility] Potassium 4.2 3.3 - 5.1 mmol/L [facility] Chloride 101 96 - 108 mmol/L [facility] Carbon Dioxide 26 22 - 29 mmol/L [facility] Anion Gap 16 12 - 20 [facility] Urea Nitrogen (BUN) 29(H) 9 - 16 mg/dL [facility] Creatinine, Serum 1.41(H) 0.5 - 1.4 mg/dL [facility] Creatinine Clr Calc Pharmacy 29.8 [facility] Comment:Provided height and weight: 149.86 cm,58.967 kg.eGFR (calculated from the MDRD study equation) and eCrCl(calculated from the Cockcroft-Gault equation) are based ondifferent parameters and may not yield comparable results.If eCrCl result is absurd, please check patient'sheight/weight. Estimated Glomerular Filt Rate 37 [facility] Comment:Chronic Kidney Disea se: Estimated GFR < 60 mL/min/1.60j9Ipisfc Kidney Disease: Estimated GFR < 15 mL/min/1.73m2 Glucose 258(H) 60 - 115 mg/dL [facility] Calcium 10.3(H) 8.4 - 10.2 mg/dL [facility] Bilirubin, Total 0.5 0.0 - 1.0 mg/dL [facility] Aspartate Amino Transferase 54(H) 5 - 31 U/L [facility] Alanine Aminotransferase 27 0 - 31 U/L [facility] Total Protein 7.8 6.5 - 8.0 g/dL [facility] Albumin Level 4.4 3.5 - 5.0 g/dL [facility] Alkaline Phosphatase 175(H) 39 - 117 U/L [facility] 02/24/2025 3:29 PM EST 02/24/2025 3:35 PM EST us Generic External Data Provider LAB BLOOD ORDERAB LES Final Result [facility] [address] [place] [phone] [phone] * Prothrombin Time-INR (02/24/2025 3:29 PM EST) Prothrombin Time 11.4 11.2 - 13.5 SEC [facility] INTERNATIONAL NORM RATIO 0.9 0.9 - 1.1 [facility] Comment:INTERNATIONAL NORMAL IZED RATIO (INR) REFERENCE [...] ORDERAB LES Final Result Performing Organization Address [facility] de Phone Number [facility] [address] [place] [phone] [phone] documented in this encounter Visit Diagnoses [...] documented as of this encounter Care Teams Chief Of Harbor Patrol Relationship Specialty Start Date End Date Kathryn Jarquin MD [address] [place] [address] PCP - General Family Medicine 04/04/18 Denis Rodgers, NamitaD [address] [place] [phone] Pharmacist Internal Medicine 10/22/22 documented as of this encounter
--- OUTSIDE RECORDS SUMMARY | 2025-02-24 19:31 | XMS_ITS | Encounter Summary ---
Author Organization [employer] Address [address] [facility] [address] 7t [place] [address] Care Team Providers Care Heating And Blending Supervisor Name Role Phone Kathryn Jarquin MD Primary Care Provider [phone] Denis Rodgers PharmD Unavailable [phone] Encounter Details Date Type Department Care Team (Late st Contact Info) Description 01/14/2023 Orders Only [facility] MEDICINE [address] [place] [address] Kathryn Jarquin MD [address] [place] [address] Stage 3b chronic kidney disease (CMS/HCC) (Primary [...] Description 03/25/2025 2:00 PM EST Medication Management [facility] MEDICINE [address] [place] [address] Denis Rodgers PharmD [address] [place] [address] 05/09/2025 2:00 PM EST Clinical Support [facility] [address] [place], [place] [phone] Rhonda Valdez, DELFINA [address] [place] [address] Scheduled Orders Name Type Priority Associated Diagnoses [...] 025 2:22 PM EST) No Denis Rodgers, Swapnil documented as of this encounter Visit Diagnoses Diagnosis Stage 3b chronic kidney disease (CMS/HCC) (HCC)- Primary Essential hypertension Unspecified essential hypertension Type 2 diabetes mellitus with hyperglycemia, without long-term current use of insulin (HCC) documented in this encounter Care Teams Heating And Blending Supervisor Relationship Specialty Start Date End Date Kathryn Jarquin MD [address] [place] [address] PCP - General Family Medicine 04/04/18 Denis Rodgers, PharmD [address] [place] [address] Pharmacist Internal Medicine 10/22/22 documented as of this encounter
--- OUTSIDE RECORDS SUMMARY | 2025-02-24 19:31 | XMS_ITS | Encounter Summary ---
Author Organization [employer] Address 75 [facility] 7t [place] [address] Care Team Providers Care Dry End Operator Name Role Phone Kathryn Jarquin MD Primary Care Provider [phone] Denis Rodgers PharmD Unavailable [phone] Encounter Details Date Type Department Care Team ([facility] st Contact Info) Description 04/02/2024 Orders Only [facility] MEDICINE [address] [place] [address] Kathryn Jarquin MD [address] [place] [address] Social History Tobacco Use Types Packs/Day Years [...] 03/25/2025 2:00 PM EST Medication Management [facility] MEDICINE [address] [place] [address] Denis Rodgers PharmD [address] [place] [address] 05/09/2025 2:00 PM EST Clinical Support [facility] [address] [place] [address] Rhonda Valdez, RN [address] [place] [address] documented as of this encounter Goals Goal [...] documented as of this encounter Care Teams Dry End Operator Relationship Specialty Start Date End Date Kathryn Jarquin MD [address] [place] [address] PCP - General Family Medicine 04/04/18 Denis Rodgers PharmD [address] [place] [address] Pharmacist Internal Medicine 10/22/22 documented as of this encounter
--- OUTSIDE RECORDS SUMMARY | 2025-02-24 19:31 | XMS_ITS | Encounter Summary ---
Author Organization [employer] Address 75 [facility] 7t [place] [address] Care Team Providers Care Accounting Specialist Name Role Phone Kathryn Jarquin MD Primary Care Provider [phone] Denis Rodgers PharmD Unavailable [phone] Reason for Visit * Reason Onset Date Comments Med Refill 09/24/2024 Encounter Details Date Type Department Care Team (Late st Contact Info) Description 09/24/2024 Telephone [facility] MEDICINE [address] [place] [address] Kathryn Jarquin MD [address] [place], [place] [phone] Med Refill Social History Tobacco Use Types [...] immediate release tablet To be sent to: [facility] - [place], [place] - [address] [place] [address] documented in this encounter Plan of Treatment Upcoming Encounters Date Type Department Care Team ([facility] st Contact Info) Description 03/25/2025 2:00 PM EST Medication Management [facility] MEDICINE [address] [place] [address] Denis Rodgers, PharmD [address] [place] [address] 05/09/2025 2:00 PM EST Clinical Support [facility] [address] [place] [address] Rhonda Valdez, RN 505 [place] [address] documented as of this encounter Goals Goal [...] documented as of this encounter Care Teams Accounting Specialist Relationship Specialty Start Date End Date Kathryn Jarquin MD [address] [place] [address] PCP - General Family Medicine 04/04/18 Denis Rodgers, Swapnil [address] [place] [address] Pharmacist Internal Medicine 10/22/22 documented as of this encounter
--- OUTSIDE RECORDS SUMMARY | 2025-02-24 19:31 | XMS_ITS | Encounter Summary ---
Author Organization [employer] Address [address] [facility] [address] 7[address] [place] [address] Care Team Providers Care Ui Programmer Name Role Phone Kathryn Jarquin MD Primary Care Provider [phone] Denis Rodgers PharmD Unavailable [phone] Encounter Details Date Type Department Care Team (Late st Contact Info) Description 01/14/2023 Orders Only [facility] [address] [place] [address] Kathryn Jarquin MD [address] [place] [address] Stage 3b chronic kidney disease (CMS/HCC) (Primary [...] Description 03/25/2025 2:00 PM EST Medication Management [facility] [address] [place] [address] Denis Rodgers PharmD [address] [place] [address] 05/09/2025 2:00 PM EST Clinical Support [facility] [address] [place], [place] [phone] Rhonda Valdez, RN [address] [place] [address] documented as of this encounter Goals Goal [...] (HCC) documented in this encounter Care Teams Ui Programmer Relationship Specialty Start Date End Date Kathryn Jarquin MD [address] [place] [phone] PCP - General Family Medicine 04/04/18 Denis Rodgers, NamitaD [address] [place] [phone] Pharmacist Internal Medicine 10/22/22 documented as of this encounter
== END 2025-02-24 21:19 | disposition home or self-care (01) ==
PROVIDERS: Physician Assistant Medical; Emergency Provider Emergency Medicine; PCP Family Medicine
DX: J18.9 Pneumonia, unspecified organism (principal); E83.42 Hypomagnesemia; I12.9 Hypertensive chronic kidney disease with stage 1 through stage 4 chronic kidney disease, or unspecified chronic kidney disease; E13.22 Other specified diabetes mellitus with diabetic chronic kidney disease; N18.9 Chronic kidney disease, unspecified
CPT/HCPCS: 36415; 71046; 71250; 80053; 83605; 83735; 83880; 84484; 85025; 85610; 87040; 87637; 93005; 96361; 96374; 96375; 99284; 99285; J0696; J3475

== ENCOUNTER → 2025-02-24 14:26 | Outpatient (BNV) | payer OTHER, SELFPAY | PROVIDERS: Emergency Provider Emergency Medicine; PCP Family Medicine; Visit Provider Internal Medicine Cardiovascular Disease | DX: R00.0 Tachycardia, unspecified (principal) | CPT/HCPCS: 93010 ==

== ENCOUNTER → 2025-02-24 15:12 | Outpatient (BNV) | payer OTHER, SELFPAY | PROVIDERS: PCP Family Medicine; Visit Provider Radiology Diagnostic Radiology | DX: R91.8 Other nonspecific abnormal finding of lung field (principal); G47.36 Sleep related hypoventilation in conditions classified elsewhere | CPT/HCPCS: 71046; 71250 ==

== ENCOUNTER 2025-03-27 10:46 | Outpatient (REF) | payer OTHER, SELFPAY ==
--- NOTE | ~2025-03-27 | MM_ITS ---
EXAMINATION: DXA BONE DENSITY AXIAL HISTORY: Z78.0 - Asymptomatic menopausal state TECHNIQUE: [employer] Dual energy absorptiometry (DEXA) of the lumbar spine, total left hip, and femoral neck was performed. COMPARISON: Comparison is made with the prior examination dated 09/10/2022. FINDINGS: The bone mineral density of the lumbar spine is 0.994 g/cm2, corresponding to a T-score of -1.6, and a Z-score of 0.0. This is indicative of osteopenia. This represents a BMD change of 0.4% compared to the prior exam. This is not statistically significant. The bone mineral density of the left total hip is 1.444 g/cm2, corresponding to a T-score of 1.1, and a Z-score of 2.4. This is indicative of normal bone mineral density. This represents a BMD change of 5.8% compared to the prior exam. This is statistically significant. The bone mineral density of the left femoral neck is 0.973 g/cm2, corresponding to a T-score of -0.5, and a Z-score of 1.1. This is indicative of normal bone mineral density. This represents a BMD change of -3.8% compared to the prior exam. FRACTURE RISK: The FRAX index suggests a ten year probability of major osteoporotic fracture of 4.1%, and of hip fracture 0.4%. MM/XR DEXA axial skeleton IMPRESSION: Based on bone mineral density, and according to World Health Organization (WHO) criteria, the diagnosis is consistent with osteopenia. Statistically, 68% of repeat scans fall within 1 SD (+/- 0.010 g/cm2 for AP spine L1-L4) and 1 SD (+/- 0.012 g/cm2 for femur total) FRAX is a trademark of the [employer] [place] [facility] [employer], a World Health Organization (WHO) Collaborating Center. Electronically signed by: Thomas Arnold MD 03/27/2025 11:58 AM [facility]
--- OUTSIDE RECORDS SUMMARY | 2025-03-27 10:48 | XMS_ITS | Encounter Summary ---
Author Organization [employer] Address [address] [facility] 7t [place] [address] Care Team Providers Care Seat Maker Name Role Phone Kathryn Jarquin MD Primary Care Provider [phone] Denis Rodgers PharmD Unavailable [phone] Reason for Referral * Consultation (Routine) - Authorized Specialty Diagnoses / Procedures Referred By Contac t Referred To Contact Cardiology Diagnoses Chest pain, unspecified type Kathryn Jarquin MD [address] [place] [address] Phone: tel: fax: [facility] Referral ID Status Reason Start Date Expiration Date Visits Requested Visits Authorized [id number] Authorized Specialty Services Required 03/04/2025 03/04/2026 1 1 Encounter Details Date Type Department Care Team (Late st Contact Info) Description 02/25/2025 Orders Only [facility] MEDICINE [address] [place], [place] [phone] Kathryn Jarquin MD [address] [place], [place] [phone] Chest pain, unspecified type (Primary Dx) Social History Tobacco Use Types [...] Upcoming Encounters Date Type Department Care Team ([facility] Contact Info) Description 05/09/2025 2:00 PM EST Clinical Support [facility] MED & PEDS [address] [place] [address] Rhonda Valdez, RN [address] [place] [address] Scheduled Referrals Name Type Priority Associated Diagnoses Orde r Schedule Referral to Cardiology Outpatient Referral Routine Chest pain, unspecified type Expected: 03/04/2025 (Approximate), Expires: 03/04/2026 documented as of this encounter Goals Goal Patient Goal Type Associated Problems Recent Progress Patient-Stated? Author Blood Pressure < 140/90 Blood Pressure 124/66( 025 2:22 PM EST) No Denis Rodgers, PharmD Help patients manage their type 2 diabetes Care Plan Help patients manage their type 2 diabetes No Francesca Martinez, OD Weekly blood pressure task Care Plan Weekly blood pressure task No Liv Martinezica, OD Help patients manage their type 2 diabetes Care Plan Help patients manage their type 2 diabetes No Liv Martinezica, OD Patient has chronic kidney disease Care Plan Patient has chronic kidney disease No Liv Martinezica, OD Weekly blood pressure task Care Plan Weekly blood pressure task No Liv Martinezica, OD Patient has chronic kidney disease Care Plan Patient has chronic kidney disease No Francesca Martinez OD Weekly blood pressure task Care Plan Weekly blood pressure task No Kathryn Jarquin MD Weekly blood pressure task Care Plan Weekly blood pressure task No Kathryn Jarquin MD Patient has chronic kidney disease Care Plan Patient has chronic kidney disease Kathryn De MD Patient has chronic kidney disease Care Plan Patient has chronic kidney disease No Kathryn Jarquin MD documented as of this encounter Visit Diagnoses Diagnosis Chest pain, unspecified type- Primary documented in this encounter Additional Health Concerns Active Problems Noted Date Diagnosed Date Help patients manage their type 2 diabetes 02/22 Weekly blood pressure task 02/22/2025 Help patients manage their type 2 diabetes 02/22 Patient has chronic kidney disease 02/22/2025 Weekly blood pressure task 02/22/2025 Patient has chronic kidney disease 02/22/2025 Weekly blood pressure task 02/25/2025 Weekly blood pressure task 02/25/2025 Patient has chronic kidney disease 02/25/2025 Patient has chronic kidney disease 02/25/2025 Assessment Noted Time PHQ-9 Depression Total Score: 12 025 10:09 AM EDT documented as of this encounter Care Teams Seat Maker Relationship Specialty Start Date End Date Kathryn Jarquin MD [address] [place] [address] PCP - General Family Medicine 04/04/18 Denis Rodgers, NamitaD [address] [place] [address] Pharmacist Internal Medicine 10/22/22 documented as of this encounter
--- OUTSIDE RECORDS SUMMARY | 2025-03-27 10:49 | XMS_ITS | Encounter Summary ---
Author Organization [employer] Address [address] [facility] 7t [place] [address] Care Team Providers Care Dairy Farmer Name Role Phone Kathryn Jarquin MD Primary Care Provider Denis Rodgers PharmD Unavailable [phone] Encounter Details Date Type Department Care Team ([facility] st Contact Info) Description 09/30/2023 Orders Only [facility] MEDICINE [address] [place], [place] [phone] Kathryn Jarquin MD 230 [place], [place] [phone] Social History Tobacco Use Types Packs/Day Years [...] Care Team (Late st Contact Info) Description 05/09/2025 2:00 PM EST Clinical Support [facility] MED & [facility]EDS [address] [place] [address] Rhonda Valdez, RN [address] [place] [address] documented as of this encounter Goals Goal Patient Goal Type Associated Problems Recent Progress Patient-Stated? Author Blood Pressure < 140/90 Blood Pressure 124/66( 025 2:22 PM EST) No Denis Rodgers, Swapnil documented as of this encounter Visit Diagnoses Not on filedocumented in this encounter Care Teams Dairy Farmer Relationship Specialty Start Date End Date Kathryn Jarquin MD [address] [place] [address] PCP - General Family Medicine 04/04/18 Denis Rodgers, PharmD [address] [place] [address] Pharmacist Internal Medicine 10/22/22 documented as of this encounter
--- OUTSIDE RECORDS SUMMARY | 2025-03-27 10:49 | XMS_ITS | Encounter Summary ---
Author Organization [employer] Address [address] [facility] 7t [place] [address] Care Team Providers Care Research Nutritionist Name Role Phone Kathryn Jarquin MD Primary Care Provider [phone] Denis Rodgers PharmD Unavailable [phone] Reason for Visit * Reason Comments Med Refill Encounter Details Date Type Department Care Team ([facility] st Contact Info) Description 05/28/2024 Refill [facility] [address] [place], [place] [phone] Kathryn Jarquin MD [address] [place] [address] Upper back pain; Chronic pain of both [...] Description 05/09/2025 2:00 PM EST Clinical Support [facility] MED & PEDS [address] [place] [address] Rhonda Valdez, RN [address] [place] [address] documented as of this encounter Goals Goal [...] documented as of this encounter Care Teams Research Nutritionist Relationship Specialty Start Date End Date Kathryn Jarquin MD [address] [place] [address] PCP - General Family Medicine 04/04/18 Denis Rodgers, Swapnil [address] [place] [address] Pharmacist Internal Medicine 10/22/22 documented as of this encounter
--- OUTSIDE RECORDS SUMMARY | 2025-03-27 10:49 | XMS_ITS | Encounter Summary ---
Author Organization [employer] Address [address] [facility] 7t [place] [address] Care Team Providers Care Retail Account Representative Name Role Phone Kathryn Jarquin MD Primary Care Provider [phone] Denis Rodgers PharmD Unavailable [phone] Reason for Visit * Reason Onset Date Comments Med Refill 09/24/2024 Encounter Details Date Type Department Care Team (Late st Contact Info) Description 09/24/2024 Telephone [facility] MEDICINE 230 [place] [address] Kathryn Jarquin MD [address] [place], [place] [phone] Med Refill Social History Tobacco Use Types [...] Miscellaneous Notes * Telephone Encounter - Kenny Aki - 09/24/2024 2:42 PM EDT TC from pt requesting medication refill. Medications needing refill: oxyCODONE (Roxicodone) 5 MG immediate release tablet To be sent to: [facility] - [place], [place] - [address] [facility] documented in this encounter Plan of Treatment Upcoming Encounters Date Type Department Care Team ([facility] st Contact Info) Description 05/09/2025 2:00 PM EST Clinical Support [facility] MED & PEDS [address] [place] [address] Rhonda Valdez, RN 505 [place] [address] documented as of this encounter Goals Goal [...] documented as of this encounter Care Teams Retail Account Representative Relationship Specialty Start Date End Date Kathryn Jarquin MD [address] [place] [address] PCP - General Family Medicine 04/04/18 Denis Rodgers, NamitaD [address] [place] [address] Pharmacist Internal Medicine 10/22/22 documented as of this encounter
--- OUTSIDE RECORDS SUMMARY | 2025-03-27 10:49 | XMS_ITS | Encounter Summary ---
Author Organization [employer] Address [address] [facility] [address] [place] [address] Care Team Providers Care Contracts Manager Name Role Phone Kathryn Jarquin MD Primary Care Provider [phone] Denis Rodgers PharmD Unavailable Encounter Details Date Type Department Care Team ([facility] st Contact Info) Description 04/02/2024 Orders Only [facility] MEDICINE [address] [place] [address] Kathryn Jarquin MD [address] [place], [place] [phone] Social History Tobacco Use Types Packs/Day Years [...] Description 05/09/2025 2:00 PM EST Clinical Support [facility] MED & PEDS [address] [place] [address] Rhonda Valdez, DELFINA 505 [place] [address] documented as of this encounter Goals Goal [...] documented as of this encounter Care Teams Contracts Manager Relationship Specialty Start Date End Date Kathryn Jarquin MD [address] [place] [address] PCP - General Family Medicine 04/04/18 Denis Rodgers, NamitaD [address] [place] [address] Pharmacist Internal Medicine 10/22/22 documented as of this encounter
--- OUTSIDE RECORDS SUMMARY | 2025-03-27 10:49 | XMS_ITS | Encounter Summary ---
Author Organization [employer] Address [address] [facility] [address] [place] [address] Care Team Providers Care Fixed Income Analyst Name Role Phone Kathryn Jarquin MD Primary Care Provider [phone] Denis Rodgers PharmD Unavailable Encounter Details Date Type Department Care Team (Late st Contact Info) Description 01/14/2023 Orders Only [facility] MEDICINE [address] [place] [address] Kathryn Jarquin MD [address] [place] [address] Stage 3b chronic kidney disease (CMS/HCC) (Primary [...] 05/09/2025 2:00 PM EST Clinical Support [facility] MED & PEDS [address] [place], [place] [phone] Rhonda Valdez, DELFINA 505 [place], [place] [phone] Scheduled Orders Name Type Priority Associated Diagnoses [...] (HCC) documented in this encounter Care Teams Fixed Income Analyst Relationship Specialty Start Date End Date Kathryn Jarquin MD [address] [place], [place] [phone] PCP - General Family Medicine 04/04/18 Denis Rodgers, NamitaD [address] [place], [place] [phone] Pharmacist Internal Medicine 10/22/22 documented as of this encounter
--- OUTSIDE RECORDS SUMMARY | 2025-03-27 10:49 | XMS_ITS | Encounter Summary ---
Author Organization [facility], Address [address] [place] [address] Phone Care Team Providers Care Passenger Attendant Name Role Phone Kathryn Jarquin MD Primary Care Provider [phone] Encounter Details Date Type Department Care Team (Late st Contact Info) Description 09/07/2023 Documentation Only [facility], [address] [place] [address] Doug Luna [address] [place] [address] Social History Tobacco Use Types [...] on filedocumented in this encounter Care Teams Passenger Attendant Relationship Specialty Start Date End Date Kathryn Jarquin MD [address] [place] [address] PCP - General Family Medicine 08/31/23 documented as of this encounter
--- OUTSIDE RECORDS SUMMARY | 2025-03-27 10:49 | XMS_ITS | Encounter Summary ---
Author Organization [employer] Address 75 [facility] 7t [place] [address] Care Team Providers Care Aging Box Hand Name Role Phone Kathryn Jarquin MD Primary Care Provider [phone] Denis Rodgers PharmD Unavailable [phone] Reason for Visit * Reason Onset Date Comments Nurse Triage 09/24/2024 Encounter Details Date Type Department Care Team ([facility] st Contact Info) Description 09/24/2024 Telephone [facility] MEDICINE [address] [place] [address] Kathryn Jarquin MD [address] [place], [place] [phone] Nurse Triage Social History Tobacco Use Types [...] RN - 09/24/2024 2:53 PM EDT No diplomatic interpreter/translator needed as this press writer speaks Gambian. Call returned to Wen Moran to triage below at [phone]. Reports having chronic pain that is using Oxycodone for. Pt was looking for status of Rx. Advised was queued to CREDIT ASSISTANT nurse for MASSPAT review and then to [...] Reason: Abdominal pain Please contact pt at [phone]. (Gambian Speaker) documented in this encounter Plan of Treatment Upcoming Encounters Date Type Department Care Team ([facility] st Contact Info) Description 05/09/2025 2:00 PM EST Clinical Support [facility] MED & PEDS [address] [place] [address] Rhonda Valdez, RN [address] [place] [address] documented as of this encounter Goals Goal [...] documented as of this encounter Care Teams Aging Box Hand Relationship Specialty Start Date End Date Kathryn Jarquin MD [address] [place] [address] PCP - General Family Medicine 04/04/18 Denis Rodgers, PharmD [address] [place] [address] Pharmacist Internal Medicine 10/22/22 documented as of this encounter
--- OUTSIDE RECORDS SUMMARY | 2025-03-27 10:49 | XMS_ITS | Encounter Summary ---
Author Organization [employer] Address [address] [facility] 7t [place] [address] Care Team Providers Care Geological Drafter Name Role Phone Kathryn Jarquin MD Primary Care Provider Denis Rodgers PharmD Unavailable [phone] Reason for Visit * Reason Comments Med Refill Encounter Details Date Type Department Care Team ([facility] st Contact Info) Description 09/19/2024 Refill [facility] MEDICINE [address] [place], [place] [phone] Kathryn Jarquin MD [address] [place], [place] [phone] Hypomagnesemia Social History Tobacco Use Types Packs/Day [...] Description 05/09/2025 2:00 PM EST Clinical Support [facility] MED & PEDS 505 [place] [address] Rhonda Valdez RN 505 [place] [address] documented as of this encounter Goals Goal Patient Goal Type Associated Problems Recent Progress Patient-Stated? Author Blood Pressure < 140/90 Blood Pressure 124/66( 025 2:22 PM EST) Denis Watkins PharmD documented as of this encounter Visit Diagnoses Diagnosis Hypomagnesemia Disorders of magnesium metabolism documented in this encounter Additional Health Concerns Assessment Noted Time PHQ-9 Depression Total Score: 12 024 10:26 AM EST documented as of this encounter Care Teams Geological Drafter Relationship Specialty Start Date End Date Kathryn Jarquin MD [address] [place] [address] PCP - General Family Medicine 04/04/18 Denis Rodgers PharmD [address] [place] [address] Pharmacist Internal Medicine 10/22/22 documented as of this encounter
--- OUTSIDE RECORDS SUMMARY | 2025-03-27 10:49 | XMS_ITS | Encounter Summary ---
Author Organization [employer] Address [address] [facility] [address] 7t [place] [address] Care Team Providers Care Direct Marketing Analyst Name Role Phone Kathryn Jarquin MD Primary Care Provider [phone] Denis Rodgers PharmD Unavailable [phone] Encounter Details Date Type Department Care Team (Late st Contact Info) Description 03/26/[address] [facility] MEDICINE [address] [place] [address] Mya Garvey [place] Social History Tobacco Use [...] 05/09/2025 2:00 PM EST Clinical Support [facility] MED & PEDS [address] [place] [address] Rhonda Valdez, RN [address] [place] [address] documented as of this encounter Goals Goal [...] on filedocumented in this encounter Care Teams Direct Marketing Analyst Relationship Specialty Start Date End Date Kathryn Jarquin MD [address] [place], [place] [phone] PCP - General Family Medicine 04/04/18 Denis Rodgers, PharmD [address] [place], [place] [phone] Pharmacist Internal Medicine 10/22/22 documented as of this encounter
--- OUTSIDE RECORDS SUMMARY | 2025-03-27 10:49 | XMS_ITS | Clinical Summary ---
Author Organization [employer] Address [address] [place] [address] Care Team Providers Care Compensation Advisor Name Role Phone Kathryn Jarquin MD Primary Care Provider [phone] Denis Rodgers PharmD Unavailable [phone] Allergies No known active allergies Medications * [...] OF BREATH 90 mL 1 024 Active naloxone (Narcan) 4 mg/0.1 mL nasal spray Administer 1 spray (4 mg) into affected nostril(s) if needed for opioid reversal or respiratory depression. May repeat every 2-3 minutes if needed, alternating nostrils, until medical assistance becomes available. 2 each 024 2024 Active QUEtiapine XR (SEROquel XR) 200 MG 24 hr tablet Take 200 mg by mouth at bedtime. Active amLODIPine (Norvasc) 5 MG tablet TAKE 1 TABLET BY MOUTH EVERY EVENING 90 tablet 3 02/28/20 25 12:10 PM EST 025 Active glucose blood (FREESTYLE LITE) test strip Use to test blood sugar 2 times daily 100 each 5 025 2025 Active Lancets misc Use to test blood sugar 2 times daily 100 each 5 02/28/20 25 12:10 PM EST Active Alcohol Swabs 70 % pads Use to test blood sugar 2 times daily 100 each 5 02/28/20 25 12:10 PM EST 025 Active Blood Glucose Monitoring Suppl (FreeStyle Struthers Lite) w/Device kit Use to test blood sugar 2 times daily 1 kit Active insulin degludec (Tresiba FlexTouch) 100 UNIT/ML injection Administer 10 units subcutaneously once daily 3 mL 12 02/28/20 25 12:10 PM EST 025 Active glucose 4 g chewable tabletIndicatio ns:Type [...] without long-term current use of insulin (HCC) Inject 5 mg under the skin 1 (one) time per week. 2 mL 5 02/28/20 12:10 PM EST Active Continuous Glucose Automatic Grinding Machine Operator (FreeStyle Godfrey 3 Rowdy) deviceIndicatio ns:Type 2 diabetes mellitus with stage 3b chronic kidney disease, without long-term current use of insulin ([facility]) 1 each Once per day. Use as directed for CGM 1 each Active Continuous Glucose Sensor (FreeStyle Godfrey 3 Plus Sensor) miscIndications :Type 2 diabetes mellitus with stage 3b chronic kidney disease, without long-term current use of insulin (HCC) 1 each every 15 days. Apply 1 every 15 days as directed for CGM 2 each 03/22/20 1:53 PM EST Active glucose blood (FreeStyle Precision Edi Test) test stripIndication s:Type 2 diabetes mellitus with stage 3b chronic kidney disease, without long-term current use of insulin ([facility]) Use to test blood sugar 2 times daily in case of CGM failure or extremes of BG 50 each 02/28/20 12:10 PM EST 025 2025 Active hydrALAZINE (Apresoline) 25 MG tablet TAKE 1 TABLET BY MOUTH TWICE DAILY IN THE MORNING AND IN THE EVENING WITH FOOD 180 tablet 2 Active D3-1000 25 MCG (1000 UT) capsule TAKE 1 CAPSULE BY MOUTH EVERY MORNING 90 capsule 2 Active levothyroxine (Synthroid, Levoxyl) 50 MCG tabletIndicatio ns:Hypothyroidi sm (acquired) TAKE 1 TABLET BY MOUTH EVERY MORNING 90 tablet 2 Active acetaminophen (Tylenol Extra Strength) 500 MG tablet Take 2 tablets (1,000 mg) by mouth every 8 (eight) hours if needed for mild pain or moderate pain. 60 tablet 2 02/28/20 2:33 PM EST Active terconazole (Terazol 3) 0.8 % vaginal cream PLACE 1 APPLICATION VAGINALLY TODOS LOS D AL ACOSTARSE FOR 3 DAYS 025 Active oxyCODONE (Roxicodone) 5 MG immediate release tabletIndicatio ns:Upper back pain,Chronic pain of both knees,Chronic female pelvic pain,Chronic pain syndrome Take 1 tablet (5 mg) by mouth if needed each day for severe pain. Do not start before March 12, 2025. 28 tablet 03/15/20 25 2:30 PM EST 025 Active chlorthalidone (Hygroton) 25 MG tabletIndicatio ns:Primary hypertension TAKE 1 TABLET BY MOUTH EVERY MORNING 90 tablet 3 025 Active chlorthalidone (Hygroton) 25 MG tabletIndicatio ns:Primary hypertension TAKE 1 TABLET BY MOUTH EVERY MORNING 90 tablet 3 024 2024 Discontinued oxyCODONE (Roxicodone) 5 MG immediate release tabletIndicatio ns:Upper back pain,Chronic pain of both knees,Chronic female pelvic pain,Chronic pain syndrome Take 1 tablet (5 mg) by mouth if needed each day for severe pain. 28 tablet 02/14/20 25 4:14 PM EST 025 2024 Discontinued(R eorder (will not trigger notification to Pharmacy)) Active Problems Problem Noted Date Diagnosed Date Class 1 obesity with serious comorbidity and body mass index (BMI) of 32.0 to 32.9 in adult 12/19/2024 Chronic back pain 10/29/2024 Assessment & Plan (01/25/2025 1:41 AM EDT): - lumbar spondylosis - following with [facility] pain management, plan for MBB. - Patient will call to reschedule appointment - continue judicious use of APAP and oxycodone - avoid NSAID/COX2i Assessment & Plan (10/29/2024 12:17 PM EDT): - lumbar spondylosis - following with [facility] pain management, plan for MBB. - Patient [...] going to start GLP1RA Last eye exam: [facility]. Nov 2023. Last foot exam: 2024 Last [...] (01/25/2025 1:40 AM EDT): - followed by [facility] GI - Work on achieving healthy weight and diet Assessment & Plan (08/07/2024 9:08 AM EDT): - followed by [facility] GI - Work on achieving healthy weight and diet Assessment & Plan (04/05/2024 5:43 AM EST): - followed by [facility] GI - Work on achieving healthy weight and diet Assessment & Plan (05/08/2023 12:06 PM EST): - followed by [facility] GI - Work on achieving healthy weight and diet Knee pain 01/07/2023 Assessment & Plan (02/04/2025 3:25 PM EST): - following with [facility] Ortho - MRI on 08/26/24: subtle radial [...] (10/29/2024 12:10 PM EDT): - following with [facility] Ortho, last seen in July 2024 - [...] (08/12/2024 6:43 AM EDT): - following with [facility] Ortho - MRI on 08/26/24: subtle radial [...] 6:33 AM EDT): - taking oxycodone under ASSISTANT TEACHER agreement since Mar 2024 - evaluated by call center manager and given reassurance for no gynecological abnormality - upcoming appointment with GI and pain management - continue current behavioral health service Assessment & Plan (04/05/2024 5:40 AM EST): - Takes non-prescribed oxycodone to try and relieve the pain and help her sleep - Will start at low dose oxycodone only one at bedtime; discussed about its judicious use and the importance of attending ASSISTANT TEACHER appt Assessment & Plan (10/30/2022 4:06 PM EDT): - seen by urogynecologist, call center manager, general surgeon, and GI - Will check [...] (08/12/2022 4:18 PM EDT): - seen by call center manager, general surgeon, and GI - Will check [...] last seen in 2020 - seen by [facility] in September 2023 - check UA/ UCx - hold restarting oxybutynin due to current urinary retention - advised to reschedule appointment with urogyn Assessment & Plan (05/08/2023 12:09 PM EST): - Hx OAB, on oxybutynin, previously following with Dr. Peñaloza, last seen in 2020 - seen by [facility] in August 2022, upcoming follow-up appt - check UA/ UCx - hold restarting oxybutynin due to current urinary retention Assessment & Plan (10/30/2022 4:09 PM EDT): - Hx OAB, on oxybutynin, previously following with Dr. Peñaloza, last seen in 2020 - seen by [facility] in August 2022, upcoming follow-up [...] LT4 accordingly Stage 3b chronic kidney disease ([facility]) 2022 Assessment & Plan (02/04/2025 3:21 PM EST): -following with formation testing operator, last seen in May 2024 -avoid nephrotoxic drugs -no longer on metformin or ACEI/ARB -consider SGLT2i (relative contraindication due to LUTS) Assessment & Plan (10/29/2024 12:14 PM EDT): -following with formation testing operator, last seen in May 2024 -avoid nephrotoxic drugs -no longer on metformin or ACEI/ARB -consider SGLT2i (relative contraindication due to LUTS) Assessment & Plan (08/12/2024 6:38 AM EDT): -following with formation testing operator, last seen in May 2024 -avoid nephrotoxic drugs -no longer on metformin or ACEI/ARB -consider SGLT2i Assessment & Plan (04/05/2024 5:47 AM EST): -following with formation testing operator, last seen in Nov 2023 -avoid nephrotoxic drugs -no longer on metformin -consider SGLT2i Assessment & Plan (05/08/2023 12:00 PM EST): -following with formation testing operator -avoid nephrotoxic drugs -no longer on metformin -clarify with GI whether patient needs to be on PPI Assessment & Plan (10/30/2022 4:11 PM EDT): -follow up with formation testing operator -avoid nephrotoxic drugs -adjust medication: metformin ER to 500 mg bid - lab review: 08/10/22 K 4.6; BUN 28; Scr 1.0 ; eGFR 56; Bicarb 28 Assessment & Plan (08/09/2022 11:50 AM EDT): -follow up with formation testing operator -avoid nephrotoxic drugs -adjust medication: metformin ER to 500 mg bid Assessment & Plan (06/03/2022 2:31 AM EST): -refer to formation testing operator -avoid nephrotoxic drugs -adjust medication: metformin [...] September 2024. S/p hysterectomy. Benign finding. -Started ASSISTANT TEACHER with oxycodone 5 mg at night since Mar 2024 -Last ASSISTANT TEACHER visit on 08/01/24, pill count suggested misuse. [...] & Plan (08/12/2024 6:31 AM EDT): -Started ASSISTANT TEACHER with oxycodone 5 mg at night since Mar 2024 -Last ASSISTANT TEACHER visit on 08/01/24, pill count suggested misuse. [...] to start oxycodone under close monitoring with ASSISTANT TEACHER program; patient verbalized understanding -Discussed about increased [...] (08/07/2024 9:07 AM EDT): - followed by [facility] GI - check whether patient needs to be on PPI or can be changed to H2-hao as recommended by formation testing operator Assessment & Plan (05/08/2023 12:02 PM EST): - followed by [facility] GI - check whether patient needs to be on PPI or can be changed to H2-hao as recommended by formation testing operator Generalized anxiety disorder with panic attacks 01/23/2015 Assessment & Plan (04/05/2024 5:54 AM EST): -tremor, patient is able to stop tremor voluntarily -check TSH Assessment & Plan (06/03/2022 2:23 AM EST): -tremor -check TSH Irritable bowel syndrome 01/23/2015 Assessment & Plan (08/07/2024 9:07 AM EDT): GI: [facility], last visit in Apr 2023 Current medication: Linzess 290 mg daily Normal EGD and colonoscopy in [facility] in Jan 2013. Colonoscopy in Apr 2023 by [facility] GI, hyperplastic polyp. Repeat in 5 years. Assessment & Plan (04/05/2024 5:45 AM EST): GI: [facility], last visit in Apr 2023 Current medication: Linzess 290 mg daily Normal EGD and colonoscopy in [facility] in Jan 2013. Colonoscopy in Apr 2023 by [facility] GI, hyperplastic polyp. Repeat in 5 years. Assessment & Plan (10/30/2022 4:20 PM EDT): GI: [facility], last visit in 08/04/22 Current medication: Linzess 290 mg daily Normal EGD and colonoscopy in [facility] in Jan 2013. Anticipating another colonoscopy soon Assessment & Plan (08/12/2022 4:19 PM EDT): GI: [facility], last visit in 08/04/22 Current medication: Linzess 290 mg daily Normal EGD and colonoscopy in [facility] in Jan 2013. Anticipating another colonoscopy soon Assessment & Plan (06/03/2022 2:15 AM EST): GI: [facility], last visit in 08/11/21 Current medication: Linzess [...] with Denis Rodgers RPh through CDTM and formation testing operator -Work on lifestyle modifications, DASH diet and increase physical activity -continue amlodipine 5 mg daily -continue chlorthalidone 25 mg daily -continue Hydralazine 25 mg BID (formation testing operator seems to be unaware of medication, [...] with Denis Rodgers RPh through CDTM and formation testing operator -Work on lifestyle modifications, DASH diet and increase physical activity -continue amlodipine 5 mg daily -continue chlorthalidone 25 mg daily -continue Hydralazine 25 mg BID (formation testing operator seems to be unaware of medication, [...] with Denis Rodgers RPh through CDTM and formation testing operator -Work on lifestyle modifications, DASH diet and increase physical activity -continue amlodipine 5 mg daily -continue chlorthalidone 25 mg daily -continue Hydralazine 25 mg BID (formation testing operator seems to be unaware of medication, [...] with Denis Rodgers RPh through CD[employer] and formation testing operator -Work on lifestyle modifications, DASH diet and increase physical activity -continue amlodipine 5 mg daily -continue chlorthalidone 12.5 mg daily -continue Hydralazine 25 mg BID (formation testing operator seems to be unaware of medication, [...] with Denis Rodgers RPh through CD[employer] and formation testing operator -Work on lifestyle modifications, DASH diet and increase physical activity -continue lisinopril 20 mg daily -continue chlorthalidone 12.5 mg daily -continue Hydralazine 25 mg BID (formation testing operator seems to be unaware of medication, [...] going to start GLP1RA Last eye exam: [facility]. Nov 2023. Last foot exam: 2024 Last [...] UTI/vaginal candidiasis / UI. Last eye exam: [facility]. Nov 2023. Last foot exam: [...] UTI/vaginal candidiasis / UI. Last eye exam: [facility]. Nov 2023. Last foot exam: 05/02/23 [...] Assessment & Plan (02/04/2025 3:24 PM EST): -[facility] provider: [facility] -Continue current medications: clonazepam; fluoxetine; prazosin; clonidine; quetiapine Assessment & Plan (10/29/2024 12:15 PM EDT): -[facility] provider: [facility] -Continue current medications: clonazepam; fluoxetine; prazosin; clonidine; quetiapine Assessment & Plan (04/05/2024 5:54 AM EST): -[facility] provider: [facility] -Continue current medications: clonazepam; fluoxetine; prazosin; clonidine; quetiapine Assessment & Plan (05/08/2023 12:22 PM EST): -[facility] provider: [facility] -Continue current medications: clonazepam; fluoxetine; prazosin; clonidine; quetiapine Assessment & Plan (10/30/2022 4:18 PM EDT): -[facility] provider: [facility] -Continue current medications: clonazepam; fluoxetine; prazosin; clonidine; quetiapine Assessment & Plan (06/03/2022 2:22 AM EST): -[facility] provider: [facility] -Continue current medications: clonazepam; fluoxetine; prazosin; clonidine; [...] Encounters Date Type Department Care Team Description 03/20/2025 Refill [facility] [address] [place] [address] Kathryn Jarquin MD Primary hypertension 03/08/2025 Refill [facility] [address] [place] [phone] Kathryn Jarquin MD Upper back pain; Chronic pain of both knees; Chronic female pelvic pain; Chronic pain syndrome 03/08/[address] [address] Kathryn Jarquin MD Appointment Request 03/07/[address] [address] Magdalena Prakash RN ER Follow-up; Referral 02/25/2025 Orders Only [facility] [address] [place] [phone] Kathryn Jarquin MD Chest pain, unspecified type (Primary Dx) 02/24/2025 Orders Only GENERIC EXTERNAL DATA DEPARTMENT Provider, Generic External Data 02/22/2025 1:45 PM EST Office Visit [facility] [address] [place] [address] Francesca Martinez OD Type 2 diabetes mellitus without ophthalmic manifestations (HCC) (Primary Dx); Presence of intraocular lens; Dry eyes, bilateral; Presbyopia 02/22/2025 Travel 02/12/2025 Refill [facility] [address] [place] [address] Rhonda Valdez RN Upper back pain; Chronic pain of both knees; Chronic female pelvic pain; Chronic pain syndrome 02/12/[address] [address] Kathryn Jarquin MD telephone call 02/11/2025 Travel 02/05/2025 3:00 PM EST Clinical Support [facility] [address] [place] [address] Rhonda Valdez, textiles and clothing teacher low back pain, unspecified back pain laterality, unspecified whether sciatica present (Primary Dx) 02/05/2025 Travel 01/24/2025 10:15 AM EDT Office Visit [facility] [address] [place] [phone] Kathryn Jarquin MD Dyslipidemia (Primary Dx); Hypertension, [...] DEPARTMENT Provider, Generic External Data 01/23/2025 Telephone [facility] [address] [place] [address] Kathryn Jarquin MD chart prep 01/21/2025 Travel 01/21/2025 Refill [facility] [address] [place] [address] Kathryn Jarquin MD Hypothyroidism (acquired) 01/07/2025 Refill [facility] [address] [place] [address] Rhonda Valdez RN Upper back pain; Chronic pain of both knees; Chronic female pelvic pain; Chronic pain syndrome 01/07/2025 Telephone [facility] [address] [place] [address] Kathryn Jarquin MD telephone call 01/04/2025 Orders Only GENERIC EXTERNAL DATA DEPARTMENT Provider, Generic External Data from Last 3 Months Immunizations Immunization Administration [...] 05/09/2025 2:00 PM EST Clinical Support [facility] [address] [place] [address] Rhonda Valdez, [place] [address] [place] [address] Health Maintenance Due Date Last Done Comments [...] chronic kidney disease No Kathryn Jarquin MD Patient has chronic kidney disease Care Plan Patient has chronic kidney disease No Kathryn Jarquin MD Weekly blood pressure task Care Plan Weekly blood pressure task No Magdalena Prakash RN Weekly blood pressure task Care Plan Weekly blood pressure task No Magdalena Prakash, DELFINA Patient has chronic kidney disease Care Plan Patient has chronic kidney disease No Magdalena Prakash, DELFINA Patient has chronic kidney disease Care Plan Patient has chronic kidney disease No Magdalena Prakash, DELFINA Weekly blood pressure task Care Plan Weekly blood pressure task No Kenny Prabhakar Weekly blood pressure task Care Plan Weekly blood pressure task No Kenny Prabhakar Patient has chronic kidney disease Care Plan Patient has chronic kidney disease No Kenny Prabhakar Patient has chronic kidney disease Care Plan Patient has chronic kidney disease No Kenny Prabhakar Weekly blood pressure task Care Plan Weekly blood pressure task No Kenny Prabhakar Weekly blood pressure task Care Plan Weekly blood pressure task No Kenny Prabhakar Patient has chronic kidney disease Care Plan Patient has chronic kidney disease No [place] Patient has chronic kidney disease Care Plan Patient has chronic kidney disease No Kenny Prabhakar Weekly blood pressure task Care Plan Weekly blood pressure task No Denis Rodgers PharmD Weekly blood pressure task Care Plan Weekly blood pressure task No Denis Rodgers PharmD Patient has chronic kidney disease Care Plan Patient has chronic kidney disease No Denis Rodgers PharmD Patient has chronic kidney disease Care Plan Patient has chronic kidney disease No Denis Rodgers PharmD Procedures Procedure Name Priority Date/Time Associated Diagnosis Comments CT CHEST WO CONTRAST Routine 02/24/2025 8:44 PM EST LACTIC ACID Routine 02/24/2025 6:54 PM EST BLOOD CULTURE (FIRST) Routine 02/24/2025 6:54 PM EST BLOOD CULTURE (SECOND) Routine 6:54 PM EST XR CHEST 2 VIEWS [...] Routine 02/24/2025 3:29 PM EST POCT GLUCOSE (CPT-23141) Routine 01/24/2025 10:08 AM EDT Type 2 diabetes mellitus without complication, with long-term current use of insulin ([facility]) BACTERIAL VAGINOSIS PANEL Routine 01/23/2025 10:45 AM EDT GLUCOSE, WHOLE BLOOD Routine 01/04/2025 7:01 AM EDT POCT GLYCATED HEMOGLOBIN, TOTAL Routine 12/19/2024 2:48 PM EDT Type 2 diabetes mellitus with stage 3b chronic kidney disease, without long-term current use of insulin ([facility]) LIPID PANEL WITH REFLEX TO DIRECT LDL Routine 12/19/2024 1:34 PM EDT Dyslipidemia BI MAMMOGRAM SCREENING TOMOSYNTHESIS BILATERAL Routine 11/07/2024 11:36 AM EDT DIABETES EYE EXAM Routine 11/18/2023 COLONOSCOPY Routine 04/15/2023 ZZZ HISTORICAL HEPATITIS C ANTIBODY RFLX Routine 04/18/2019 8:30 AM EST from Last 3 Months or Most Recently Relevant to Health Maintenance Results * CT Chest w/o Contrast (02/24/2025 8:44 PM EST) Anatomical Region Laterality Modality Body, Chest Computed Tomogra phy 02/24/2025 8:44 PM EST Narrative 02/24/2025 8:45 PM EST [address] [address] [address] Scan Report Signed Patient: Wen Moran MR#: [id number] : 1955 Acct:[id number] Age/Sex: 69 / F ADM Date: 02/24/25 Loc: HO.ED Attending Dr: Ordering Physician: Jassi Gregg MD Date of Service: 02/24/25 Procedure(s): CT chest wo IV con Accession Number(s): [id number] cc: Jassi Gregg MD; Kathryn Jarquin MD Report Number: [id number]: Total DLP = 0.00 mGy-cm Reason for Exam: cough, fever, sepsis unknown source CLINICAL HISTORY: cough, fever, sepsis unknown source CT chest without contrast Comparison: CR - XR CHEST 2V - 02/24/25 15:58 EST Findings: Limited evaluation without intravenous contrast. The heart is normal size. Significant coronary artery disease. No pericardial effusion. Atherosclerotic vascular disease with no aneurysm of thoracic aorta. Airspace opacity in the lingula medially. Mild right middle lobe and inferior lingular atelectasis. Bilateral small calcified nodule suggestive of healed granulomatous disease. No pleural effusion or pneumothorax Visualized thyroid and thoracic esophagus within normal limits. The visualized upper abdomen demonstrates no acute findings. No acute fractures. IMPRESSION: 1. Medial lingular airspace opacity suspicious for pneumonia. 2. Additional nonacute findings as described. This document has been electronically signed by: Sharyn Gutierrez MD on 02/24/2025 20:44:59 Dictated By: Sharyn Gutierrez MD Signed By: <Electronically signed by Sharyn Gutierrez MD in OV> 02/24/252044 DD/ 43 TD/TT: 02/24/252043 Water Filtration Technician: Procedure Note Donotuseinterpreter, Image - 02/24/[address] [place] [address] [address] Scan Report Signed Patient: Devin Moran#: [id number] : 7Acct:[id number] Age/Sex: 69 / FADM Date: 02/24/25 Loc: HO.ED Attending Dr: Ordering Physician: Jassi Gregg MD Date of Service: 02/24/25 Procedure(s): CT chest wo IV con Accession Number(s): [id number] cc: Jassi Gregg MD; Kathryn Jarquin MD Report Number: [id number]: Total DLP = 0.00 mGy-cm Reason for Exam: cough, fever, sepsis unknown source CLINICAL HISTORY: cough, fever, sepsis unknown source CT chest without contrast Comparison: CR - XR CHEST 2V - 02/24/25 15:58 EST Findings: Limited evaluation without intravenous contrast. The heart is normal size. Significant coronary artery disease. No pericardial effusion. Atherosclerotic vascular disease with no aneurysm of thoracic aorta. Airspace opacity in the lingula medially. Mild right middle lobe and inferior lingular atelectasis. Bilateral small calcified nodule suggestive of healed granulomatous disease. No pleural effusion or pneumothorax Visualized thyroid and thoracic esophagus within normal limits. The visualized upper abdomen demonstrates no acute findings. No acute fractures. IMPRESSION: 1. Medial lingular airspace opacity suspicious for pneumonia. 2. Additional nonacute findings as described. This document has been electronically signed by: Sharyn Gutierrez MD on 02/24/2025 20:44:59 Dictated By: Sharyn Gutierrez MD Signed By: <Electronically signed by Sharyn Gutierrez MD in OV> 02/24/252044 DD/ 43 TD/TT: 02/24/252043 Water Filtration Technician: [facility] External Provider IMG CT PROCEDURES Edited Result - Final * Blood Culture (First) (02/24/2025 6:54 PM EST) Blood Venous blood specimen / Unknown 02/24/2025 6:54 PM EST 02/24/2025 6:58 PM EST Comment:Blood [facility] [facility] - 03/01/2025 8:59 PM EST Blood Culture (First) No growth after 5 days. Specimen Source: Blood Generic External Data Provider LAB MICROBIOLOGY - GENERAL ORDERABLES Final Result [facility] [address] [place] [phone] * Blood Culture (Second) (02/24/2025 6:54 PM EST) Blood Venous blood specimen / Unknown 02/24/2025 6:54 PM EST 02/24/2025 6:58 PM EST Comment:Blood [facility] - 03/01/2025 8:59 PM EST Blood Culture (Second) No growth after 5 days. Specimen Source: Blood Generic External Data Provider LAB MICROBIOLOGY - GENERAL ORDERABLES Final Result Performing Organization Address [facility] de Phone Number [facility] [address] [place] [phone] * Lactic Acid (02/24/2025 6:54 PM EST) Lactic Acid 1.9 0.5 - 2.0 mmol/L [facility] 02/24/2025 6:54 PM EST 02/24/2025 6:58 PM EST Generic External Data Provider LAB BLOOD ORDERAB LES Final Result Performing Organization Address [facility] Phone Number [facility] [address] [place] [phone] * XR Chest 2 Views (02/24/2025 5:07 PM EST) Anatomical Region Laterality Modality Chest Radiographic Arabella ging 02/24/2025 5:07 PM EST Narrative 02/24/2025 5:09 PM EST [address] [address] XRay Report Signed Patient: Wen Moran MR#: [id number] : 1955 Acct:[id number] Age/Sex: 69 / F ADM Date: 02/24/25 Loc: .ED Attending Dr: Ordering Physician: Kavita Guzmán Date of Service: 02/24/25 Procedure(s): XR chest 2V Accession Number(s): [id number] cc: Kavita Guzmán; Kathryn Jarquin MD Reason for Exam: chest pain / cough CLINICAL HISTORY: chest pain cough 2 view chest x-ray Comparison: CR/VA/SR - XR CHEST 2 VIEWS - 09/08/23 [...] in OV> 02/24/251707 DD/ 06 TD/TT: 02/24/251706 Water Filtration Technician: Procedure Note Donotuseinterpreter, Image - 02/24/2025 [place] [address] XRay Report Signed Patient: Devin Moran#: [id number] : 7Acct:[id number] Age/Sex: 69 / FADM Date: 02/24/25 Loc: .ED Attending Dr: Ordering Physician: Kavita Guzmán Date of Service: 02/24/25 Procedure(s): XR chest 2V Accession Number(s): [id number] cc: Kavita Guzmán; Kathryn Jarquin MD Reason for Exam: chest pain / cough CLINICAL HISTORY: chest pain cough 2 view chest x-ray Comparison: CR/VA/SR - XR CHEST 2 VIEWS - 09/08/23 [...] in OV> 02/24/251707 DD/ 06 TD/TT: 02/24/251706 Water Filtration Technician: us [facility] External Provider IMG XR PROCEDURES Final Result * Slide Review (02/24/2025 4:06 PM EST) Slide Review VERIFIED [facility] 02/24/2025 4:06 PM EST 02/24/2025 4:08 PM EST Generic External Data Provider LAB BLOOD ORDERAB LES Final Result [facility] [address] [place] [address] [phone] * (ABNORMAL) CBC auto differential (02/24/2025 4:06 PM EST) White Blood Count 24.2(H) 4.8 - 10.8 X10*3/uL [facility] Red Blood Count 4.73 4.20 - 5.50 X10*6/uL [facility] Hemoglobin 12.8 12.0 - 16.0 g/dl [facility] Hematocrit 40.0 37.0 - 47.0 % [facility] Mean Corpuscular Volume 84.6 80.0 - 98.0 fL [facility] Mean Corpuscular Hemoglobin 27.1 27.0 - 33.0 pg [facility] Mean Corpuscular HGB Conc 32.0 31.0 - 35.0 g/dl [facility] Red Cell Distribution Width 13.8 11.0 - 16.0 % [facility] Platelet Count 226 160 - 400 X10*3/uL [facility] Mean Platelet Volume 11.1 9.4 - 12.3 fL [facility] Neutrophils Percent Auto 81.7(H) 45 - 73 % [facility] Imm Gran Pct Auto 0.7(H) 0.0 - 0.4 % [facility] Lymphocytes Percent Auto 10.0(L) 20 - 40 % [facility] Monocytes Percent Auto 7.1 2 - 11 % [facility] Eosinophils Percent Auto 0.2 0 - 4 % [facility] Basophils Percent Auto 0.3 0 - 2 % [facility] NRBC Pct Auto 0.0 0.0 - 0.2 /100WBC [facility] Neutrophils Absolute Auto 19.7(H) 2.0 - 8.3 x10*3/uL [facility] Imm Gran Abs Auto 0.17(H) 0.00 - 0.03 X10*3/uL [facility] Lymphocytes Absolute Auto 2.4 1.2 - 4.9 X10*3/uL [facility] Monocytes Absolute Auto 1.7(H) 0.1 - 1.2 X10*3/uL [facility] Eosinophils Absolute Auto 0.1 0.0 - 0.4 X10*3/uL [facility] Basophils Absolute Auto 0.1 0.0 - 0.2 X10*3/uL [facility] NRBC Abs Auto 0.000 0.0 - 0.012 X10*3/uL [facility] 02/24/2025 4:06 PM EST 02/24/2025 4:08 PM EST Generic External Data Provider LAB BLOOD ORDERAB LES Edited Result - Final Performing Organization Address [facility] de Phone Number [facility] [address] [place] [phone] * High Sensitivity Troponin I (02/24/2025 3:29 PM EST) TROPONIN I HIGH SENSITIVITY 3.5 <3.5 - 17.0 ng/L [facility] Comment:The [place] high sens itivity Troponin-I results should beused in conjunction with other diagnostic information suchas ECG, clinical observations and information, and patientsymptoms to aid in the diagnosis of [place]. 02/24/2025 3:29 PM EST 02/24/2025 3:35 PM EST us Generic External Data Provider LAB BLOOD ORDERAB LES Final Result Performing Organization Address [facility] Co de Phone Number [facility] [address] [place] [phone] * SARS-CoV-2 RNA, Influenza A/B, and RSV RNA, Ql NAAT (02/24/2025 3:29 PM EST) Influenza A PCR NEGATIVE Negative [facility] Influenza B PCR NEGATIVE Negative [facility] Resp Syncy Virus RNA Qual PCR NEGATIVE Negative [facility] SARS COV2 PCR NEGATIVE Negative [facility] Comment:All test results mus t [...] use by authorized laboratories.Testing performed on the [employer] GeneXpert utilizingreal-time RT-PCR.All SARS CoV2 and positive influenza A/B results arereported to [facility]. 02/24/2025 3:29 PM EST 02/24/2025 3:35 PM EST Generic External Data Provider LAB MICROBIOLOGY - GENERAL ORDERABLES Final Result [facility] [address] [place] [address] [phone] * (ABNORMAL) NT-proBNP (02/24/2025 3:29 PM EST) NT-proBNP 417.7(H) <300 pg/mL [facility] Comment:Reference Range:Age Group (years) NT-proBNP (pg/ml) InterpretationAll <300 Negative: HF unlikelyFor patients presenting to the ED with clinical suspicion ofnew onset or worsening HF, see below:18 to <50 >299.9 to <450.0 Grayzone: [id number] to 75 >299.9 to <900.0 other causes of>75 >299.9 to <1800.0 NT-proBNP [id number] to <50 >449.9 Positive: HF -72 >899.9>75 >1799.9Note: Elevated NT-proBNP levels should be interpreted inthe context of other clinical information. 02/24/2025 3:29 PM EST 02/24/2025 3:35 PM EST Generic External Data Provider LAB BLOOD ORDERAB LES Final Result Performing Organization Address [facility] de Phone Number [facility] [address] [place] [phone] * Prothrombin Time-INR (02/24/2025 3:29 PM EST) Prothrombin Time 11.4 11.2 - 13.5 SEC [facility] INTERNATIONAL NORM RATIO 0.9 0.9 - 1.1 [facility] Comment:INTERNATIONAL NORMAL IZED RATIO (INR) [...] 3:29 PM EST 02/24/2025 3:35 PM EST [employer]ast External Data Provider LAB BLOOD ORDERAB LES Final Result Performing Organization Address [facility] de Phone Number [facility] [address] [place] [phone] * (ABNORMAL) Magnesium (02/24/2025 3:29 PM EST) Magnesium 1.4(LL) 1.6 - 2.6 mg/dL [facility] Comment:Critical value for t est(s): MG Results called to and readback by: DARIN Person calling: HAYDE Date: [id number] 02/24/2025 3:29 PM EST 02/24/2025 3:35 PM EST us Generic External Data Provider LAB BLOOD ORDERAB LES Final Result [facility] [address] [place] [address] [phone] * (ABNORMAL) Comprehensive Metabolic Panel (02/24/2025 3:29 PM EST) Sodium 139 135 - 145 mmol/L [facility] Potassium 4.2 3.3 - 5.1 mmol/L [facility] Chloride 101 96 - 108 mmol/L [facility] Carbon Dioxide 26 22 - 29 mmol/L [facility] Anion Gap 16 12 - 20 [facility] Urea Nitrogen (BUN) 29(H) 9 - 16 mg/dL [facility] Creatinine, Serum 1.41(H) 0.5 - 1.4 mg/dL [facility] Creatinine Clr Calc Pharmacy 29.8 [facility] Comment:Provided height and weight: 149.86 cm,58.967 kg.eGFR (calculated from the MDRD study equation) and eCrCl(calculated from the Cockcroft-Gault equation) are based ondifferent parameters and may not yield comparable results.If eCrCl result is absurd, please check patient'sheight/weight. Estimated Glomerular Filt Rate 37 [facility] Comment:Chronic Kidney Disea se: Estimated GFR < 60 mL/min/1.89s0Iqorne Kidney Disease: Estimated GFR < 15 mL/min/1.73m2 Glucose 258(H) 60 - 115 mg/dL [facility] Calcium 10.3(H) 8.4 - 10.2 mg/dL [facility] Bilirubin, Total 0.5 0.0 - 1.0 mg/dL [facility] Aspartate Amino Transferase 54(H) 5 - 31 U/L [facility] Alanine Aminotransferase 27 0 - 31 U/L [facility] Total Protein 7.8 6.5 - 8.0 g/dL [facility] Albumin Level 4.4 3.5 - 5.0 g/dL [facility] Alkaline Phosphatase 175(H) 39 - 117 U/L [facility] 02/24/2025 3:29 PM EST 02/24/2025 3:35 PM EST us Generic External Data Provider LAB BLOOD ORDERAB LES Final Result [facility] [address] [place] [phone] * (ABNORMAL) POCT glucose manually resulted (01/24/2025 10:08 AM EDT) Glucose Blood, POC 209(A) 60 - 200 mg/dL QC Media Lot # [id number] Lot# Expiration Date [id number] Blood Capillary blood specimen / Unknown 01/24/2025 10:08 AM EDT us Kathryn Jarquin MD POINT OF CARE TEST ENTER/EDIT OR DERABLES Final Result * Bacterial Vaginosis (01/23/2025 10:45 AM EDT) Pathologist [facility] TRICHOMONAS VAGINALIS DETECTION BY PCR NOT DETECTED Not Detect [facility] BACTERIAL VAGINOSIS DETECTION BY PCR NEGATIVE Negative [facility] Comment:The BV organism targ ets of [...] DETECTION BY PCR NOT DETECTED Not Detect [facility] Yesenia glab krusei PCR NOT DETECTED Not Detect [facility] 01/23/2025 10:4 5 AM EDT 01/23/2025 3:41 PM EDT Generic External Data Provider LAB MICROBIOLOGY - GENERAL ORDERABLES Final Result Performing Organization Address City/[facility]/ZIP Co de Phone Number [facility] [address] [place] [phone] * (ABNORMAL) Glucose, Whole Blood (01/04/2025 7:01 AM EDT) Glucose, Whole Blood 247(H) 60 - 115 mg/dL [facility] Comment:METER #: [id number] 01/04/2025 7:01 AM EDT 01/04/2025 7:07 AM EDT Generic External Data Provider LAB BLOOD ORDERAB LES Final Result Performing Organization Address [facility]/ZIP Co de Phone Number [facility] [address] [place] [phone] * (ABNORMAL) POCT Hgb A1c (12/19/2024 2:48 PM EDT) Hemoglobin A1C 7.4(A) 4.0 - 5.7 % QC Media Lot # [id number] Lot# Expiration Date Blood 12/19/2024 2:48 PM EDT Dara Hayes MD POINT OF CARE TEST ENTER/EDIT ORDERABLES Final Result * (ABNORMAL) Lipid Panel with Reflex to Direct LDL (12/19/2024 1:34 PM EDT) Triglycerides 181(H) <150 mg/dL [facility] Comment:Slight Lipemia.Brown able Triglyceride: less than 150 mg/dLBorderline High Triglyceride 150-199 mg/dLHigh Triglyceride: 200-499 mg/dLVery High Triglyceride: greater than or equal to 5OO mg/dL Cholesterol 237(H) <200 mg/dL [facility] Comment:Desirable Cholestero l: less than 200 mg/dLBorderline High Cholesterol: 200-239 mg/dLHigh Cholesterol: greater than 239 mg/dL LDL Cholesterol Calculated 147(H) <100 mg/dL [facility] Comment:Desirable LDL: less than 100 mg/dLNear Optimal/Above Optimal LDL: 110- 129 mg/dLBorderline High LDL: 130-159 mg/dLHigh LDL: 160-189 mg/dLVery High LDL: greater than or equal to 190 mg/dL HDL Cholesterol 54 >40 mg/dL [facility] Comment:Desirable HDL: great er than 40 mg/dL Note: This HDL assay may give artificially low results in patients with liver disease. Blood 12/19/2024 1:34 PM EDT 12/19/2024 4:03 PM EDT us Kathryn Jarquin MD LAB BLOOD ORDERABLES Final Resul t [facility] [address] [place] [phone] * BI Mammogram Screening Tomosynthesis Bilateral (11/07/2024 11:36 AM EDT) Anatomical Region Laterality Modality Breast Bilateral Mammography 11/07/2024 11:3 6 AM EDT Narrative 11/17/2024 6:20 PM EDT [facility] [address] [place] [address] Mammography Report Signed Patient: Wen Moran MR#: [id number] : 1955 Acct:[id number] Age/Sex: 69 / F ADM Date: 11/07/24 Loc: [facility] Attending Dr: Kathryn Jarquin MD Ordering Physician: Jaylen Cotton MD Results: 1Negativ e Date of Service: 11/07/24 Follow Up: 1 Year From Orig ina Mammogram Procedure(s): MM tomosynthesis screening BI Accession Number(s): [id number] cc: Kathryn Jarquin MD; Jaylen Cotton MD [...] 11/17/24 1817 DD/ 1136 TD/TT: 11/07/24 1150 Water Filtration Technician: Procedure Note Donotuseinterpreter, Image - [facility]17/[facility] [address] [place], [place] [address] Mammography Report Signed Patient: Devin Moran#: [id number] : 7Acct:[id number] Age/Sex: 69 / FADM Date: 11/07/24 Loc: [facility] Attending Dr: Kathryn Jarquin MD Ordering Physician: Jaylen Cotton MDResults: 1Negativ e Date of Service: 11/07/24Follow Up: 1 Year From Orig inal Mammogram Procedure(s): MM tomosynthesis screening BI Accession Number(s): [id number] cc: Kathryn Jarquin MD; Jaylen Cotton MD [...] 11/17/24 1817 DD/ 1136 TD/TT: 11/07/24 1150 Water Filtration Technician: [facility] External Provider IMG BI PROCEDURES Edited [...] [facility] [address] from Last 3 Months or Most [...] 02/25/2025 Patient has chronic kidney disease 02/25/2025 Weekly blood pressure task 03/07/2025 Weekly blood pressure task 03/07/2025 Patient has chronic kidney disease 03/07/2025 Patient has chronic kidney disease 03/07/2025 Weekly blood pressure task 03/08/2025 Weekly blood pressure task 03/08/2025 Patient has chronic kidney disease 03/08/2025 Patient has chronic kidney disease 03/08/2025 Weekly blood pressure task 03/08/2025 Weekly blood pressure task 03/08/2025 Patient has chronic kidney disease 03/08/2025 Patient has chronic kidney disease 03/08/2025 Weekly blood pressure task 03/25/2025 Weekly blood pressure task 03/25/2025 Patient has chronic kidney disease 03/25/2025 Patient has chronic kidney disease 03/25/2025 Insurance [facility] [employer] (O D-SNP) [place] [id number] [facility] Care Teams Compensation Advisor Relationship Specialty Start Date End Date Kathryn Jarquin MD [address] [place] [address] PCP - General Family Medicine 04/04/18 Denis Rodgers, NamitaD [address] [place] [address] Pharmacist Internal Medicine 10/22/22
--- OUTSIDE RECORDS SUMMARY | 2025-03-27 10:49 | XMS_ITS | Encounter Summary ---
Author Organization [employer] Address [address] [place] [address] Care Team Providers Care Clinical Molecular Geneticist Name Role Phone Kathryn Jarquin MD Primary Care Provider [phone] Denis Rodgers PharmD Unavailable Encounter Details Date Type Department Care Team (Late st Contact Info) Description 12/17/2024 Orders Only [facility] [address] [place] [address] Kathryn Jarquin MD [address] [place] [address] Hypokalemia (Primary Dx) Social History Tobacco Use [...] Upcoming Encounters Date Type Department Care Team ([facility] st Contact Info) Description 05/09/2025 2:00 PM EST Clinical Support [facility] [address] [place] [address] Rhonda Valdez, RN [address] [place] [address] documented as of this encounter Goals Goal [...] EDT) Sodium 141 135 - 145 mmol/L [facility] Potassium 3.7 3.3 - 5.1 mmol/L [facility] Chloride 104 96 - 108 mmol/L [facility] Carbon Dioxide 26 22 - 29 mmol/L [facility] Anion Gap 15 12 - 20 [facility] Urea Nitrogen (BUN) 26(H) 9 - 16 mg/dL [facility] Creatinine, Serum 1.54(H) 0.5 - 1.4 mg/dL [facility] Estimated Glomerular Filt Rate 34 [facility] Comment:Chronic Kidney Disea se: Estimated GFR < 60 mL/min/1.42t1Ltedgv Kidney Disease: Estimated GFR < 15 mL/min/1.73m2 Glucose 181(H) 60 - 115 mg/dL [facility] Calcium 9.6 8.4 - 10.2 mg/dL [facility] Blood Venous blood specimen / Unknown 12/21/2024 9:40 AM EDT 12/21/2024 11:19 AM EDT us Kathryn Jarquin MD LAB BLOOD ORDERABLES Final Resul t Performing Organization Address City/[facility] Co de Phone Number [facility] [address] [place] [phone] * Magnesium (12/19/2024 1:34 PM EDT) Magnesium 1.7 1.6 - 2.6 mg/dL [facility] Blood Venous blood specimen / Unknown 12/19/2024 1:34 PM EDT 12/19/2024 4:03 PM EDT us Kathryn Jarquin MD LAB BLOOD ORDERABLES Final Resul t Performing Organization Address City/[facility] Co de Phone Number [facility] [address] [place] [phone] documented in this encounter Visit Diagnoses Diagnosis Hypokalemia- Primary Hypopotassemia documented in this encounter Additional Health Concerns Assessment Noted Time PHQ-9 Depression Total Score: 12 03/29/ 024 10:26 AM EST documented as of this encounter Care Teams Clinical Molecular Geneticist Relationship Specialty Start Date End Date Kathryn Jarquin MD [address] [place] [phone] PCP - General Family Medicine 04/04/18 Denis Rodgers, PharmD [address] [place] [phone] Pharmacist Internal Medicine 10/22/22 documented as of this encounter
--- OUTSIDE RECORDS SUMMARY | 2025-03-27 10:49 | XMS_ITS | Encounter Summary ---
Author Organization [employer] Address [address] [facility] [address] [place] [address] Care Team Providers Care Compound Specialist Name Role Phone Kathryn Jarquin MD Primary Care Provider [phone] Denis Rodgers PharmD Unavailable [phone] Reason for Visit * Reason Comments Med Refill Encounter Details Date Type Department Care Team ([facility] st Contact Info) Description 05/29/2024 Refill [facility] [address] [place], [place] [phone] Kathryn Jarquin MD [address] [place] [address] Upper back pain; Chronic pain of both [...] Description 05/09/2025 2:00 PM EST Clinical Support [facility] [address] [place] [address] Rhonda Valdez, RN [address] [place] [address] documented as of this encounter Goals Goal [...] documented as of this encounter Care Teams Compound Specialist Relationship Specialty Start Date End Date Kathryn Jarquin MD [address] [place] [address] PCP - General Family Medicine 04/04/18 Denis Rodgers, Swapnil [address] [place] [address] Pharmacist Internal Medicine 10/22/22 documented as of this encounter
--- OUTSIDE RECORDS SUMMARY | 2025-03-27 10:49 | XMS_ITS | Clinical Summary ---
Author Organization [facility] Address [address] [facility] [address] [place] [address] Phone Care Team Providers Care Management Coordinator Name Role Phone Kathryn Jarquin MD Primary Care Provider Allergies No known active allergies Active Problems [...] Last Assessment & Plan: -follow up with doughmaker -avoid nephrotoxic drugs -adjust medication: metformin ER [...] age to complete this topic Insurance [facility] One Care Dual SNP ([id number]) [place] [address] Care Teams Management Coordinator Relationship Specialty Start Date End Date Kathryn Jarquin MD [address] [place] [phone] PCP - General Family Medicine 08/31/23
--- OUTSIDE RECORDS SUMMARY | 2025-03-27 10:49 | XMS_ITS | Encounter Summary ---
Author Organization [employer] Address [address] [place] [address] Care Team Providers Care Public Relations Sales Marketing Name Role Phone Kathryn Jarquin MD Primary Care Provider [phone] Denis Rodgers PharmD Unavailable [phone] Encounter Details Date Type Department Care Team (Late st Contact Info) Description 01/14/2023 Orders Only [facility] [address] [place] [address] Kathryn Jarquin MD [address] [place] [address] Stage 3b chronic kidney disease (CMS/HCC) (Primary [...] [facility] [address] [place] [address] Rhonda Valdez, DELFINA [address] [place] [address] documented as of this encounter Goals Goal [...] (HCC) documented in this encounter Care Teams Public Relations Sales Marketing Relationship Specialty Start Date End Date Kathryn Jarquin MD [address] [place] [address] PCP - General Family Medicine 04/04/18 Denis Rodgers, PharmD [address] [place] [address] Pharmacist Internal Medicine 10/22/22 documented as of this encounter
== END 2025-03-27 10:47 | disposition home or self-care (01) ==
LOC: HO.MAMMO 10:46
PROVIDERS: PCP Family Medicine; Visit Provider Obstetrics & Gynecology
DX: Z78.0 Asymptomatic menopausal state (principal)
CPT/HCPCS: 77080

== ENCOUNTER → 2025-03-27 11:00 | Outpatient (BNV) | payer OTHER, SELFPAY | PROVIDERS: PCP Family Medicine; Visit Provider Radiology Diagnostic Radiology | DX: E28.39 Other primary ovarian failure (principal) | CPT/HCPCS: 77080 ==